=== PATIENT | male | born 1960 | race Caucasian/White ===

== ENCOUNTER 2016-12-20 11:17 | Inpatient (IN) | payer BC, OTHER ==
[~2016-12-20] VITALS: Ht 175.3 cm; Wt 93.8 kg
[~2016-12-20 11:17] MED LIST: ACET-1311 PO; ADVIN25/60 INH; ALBU1AER9 INH; BUDE0.25 NEB; CLC100X PO; DICL1GEL28 TOP; FOLI1TAB7 PO; FURO-85 PO; GLUCTAB7 PO; HYCT PO; INSDGI SC; INSDGI SQ; INSU100I2 SC; IPRA1AER2 INH; LEVA1NEB20 INH; LEVO150T PO; LISI40TA PO; LPT40 PO; MAGN400T6 PO; METO10TA3 PO; MISCCAP80 PO; NRT/25 PO; NRV/5 PO; NSNN50 NAE; OXYC7.5T78 PO; PRT/20 PO; RIBO1TAB PO; SODI1000 PO; TAMS0.4C38 PO; TNR25 PO; TRAM-453 PO; ZNTT/150 PO; [UNRECOGNIZED DRUG - CODE] PO
[2016-12-20] MEDS ORDERED: SODIUM CHLORIDE 0.9% 1000ML 1,000 ML IV ONE (13:18)
[2016-12-20] MEDS ORDERED: SODIUM CHLORIDE 0.9% 1000ML 1,000 ML IV STA (13:18)
[2016-12-20] MEDS ORDERED: ACETAMINOPHEN 325 MG TAB PO STA (13:18)
[2016-12-20] MEDS ORDERED: PIPERACILLIN/TAZOBACTAM 4.5 GM/100ML D5W IV STA (13:22)
[2016-12-20 13:31] LABS: BASO % 0.1 %; BASO ABS # 0.01 K/uL (0-0.2); COMPLETE YES; EOS % 0.6 %; HEMATOCRIT 31.5 % (42-52); IG% 0.1 %; LYMPH % 8.3 %; LYMPH ABS # 0.57 K/uL (1.2-3.4); MEAN CELL VOLUME 84.9 fL (80-100); MEAN CORPUSCULAR HEMOGLOBIN 29.6 pg (25-34); MEAN CORPUSCULAR HGB CONC 34.9 g/dl (32-36); MONO % 9.7 %; NEUT % 81.2 %; PLATELET COUNT 245 K/uL (130-400); RED BLOOD COUNT 3.71 M/uL (4.7-6.1)
[2016-12-20 13:40] LABS: BLOOD UREA NITROGEN 24 mg/dl (7-18); CALCIUM 9.4 mg/dl (8.5-10.1); CARBON DIOXIDE 28 mmol/L (21-32); CHLORIDE 91 mmol/L (98-107); GLUCOSE 214 mg/dl (70-99); POTASSIUM 4.4 mmol/L (3.5-5.1); SODIUM 129 mmol/L (136-145)
--- NOTE | 2016-12-20 13:40 | DIAGNOSTIC IMAGING REPORT ---
CHEST ONE VIEW PORTABLE CLINICAL HISTORY: CHEST PAIN dyspnea COMPARISON STUDY: 04/12/2016 FINDINGS: Small parenchymal infiltrate medial aspect left lower lobe. Potential atelectatic change medial right lower lobe. Lungs otherwise appear clear. IMPRESSION: Small parenchymal infiltrate medial left base and potentially medial right base Electronically signed by: Haroon Zuñiga M.D. 12/20/2016 1:39 PM Dictated Date/Time: 12/20/2016 1:38 PM
[2016-12-20 13:43] LABS: BUN/CREATININE RATIO 14.9 (10-20)
[2016-12-20 13:48] LABS: ALKALINE PHOSPHATASE 103 U/L (45-117); ALT/SGPT 21 U/L (12-78); AST/SGOT 20 U/L (15-37)
[2016-12-20] MEDS ORDERED: OXYC-57 PO (13:55)
[2016-12-20] MEDS ORDERED: VNTHFA/IN INH (14:12)
[2016-12-20] MEDS ORDERED: DICL1GEL12 TOP (14:12)
[2016-12-20] MEDS ORDERED: [UNRECOGNIZED DRUG - CODE] PO (14:12)
[2016-12-20] MEDS ORDERED: INSDGIPEN SC (14:12)
[2016-12-20] MEDS ORDERED: CLC100X PO (14:12)
[2016-12-20] MEDS ORDERED: LEVA45AE INH (14:15)
[2016-12-20] MEDS ORDERED: XPNINS INH (14:15)
[2016-12-20] MEDS ORDERED: TRIA1SPR10 (14:15)
[2016-12-20] MEDS ORDERED: SODIUM CHLORIDE PO (14:18)
[2016-12-20] MEDS ORDERED: MOME6000 (14:20)
[2016-12-20] MEDS ORDERED: ZOLPIDEM TARTRATE 5 MG TAB PO PRN (17:00)
[2016-12-20] MEDS ORDERED: ALUMINUM/MAGNESIUM/SIMETH (MAALOX MAX) 30 ML UDC PO PRN (17:00)
[2016-12-20] MEDS ORDERED: MAGNESIUM HYDROXIDE SUSP 30 ML UDC PO PRN (17:00)
[2016-12-20] MEDS ORDERED: ONDANSETRON INJ 2 MG/ML 2 ML VIAL IV PRN (17:00)
[2016-12-20] MEDS ORDERED: TRAMADOL HCL 50 MG TAB PO PRN (17:00)
[2016-12-20] MEDS ORDERED: ACETAMINOPHEN 325 MG TAB PO PRN (17:00)
[2016-12-20] MEDS ORDERED: OXYCODONE/ACETAMINOPHEN 5-325 TAB PO PRN (17:00)
[2016-12-20] MEDS ORDERED: POLYETHYLENE (MIRALAX) 17 GM PACK PO PRN (17:00)
--- NOTE | 2016-12-20 17:17 | History and Physical ---
History & Physical Date of Service Dec 20, 2016. History & Physical pneumonia/mild sepsis, [id number]
--- NOTE | 2016-12-20 18:35 | HISTORY & PHYSICAL EXAMINATION ---
DATE OF ADMISSION: 12/20/2016 This is a level 3 inpatient admission, 35 minutes. CHIEF COMPLAINT: Fever, cough and sputum. HISTORY OF PRESENT ILLNESS: The patient is a 56-year-old white male with a significant past medical history of subarachnoid bleeding 2 years ago, poorly controlled diabetic, COPD, SIADH, hypertension, carotid artery stenosis, complete blindness and dyslipidemia coming to the hospital Emergency Department because of the above chief complaint. The patient reported having persistent shortness of breath for about a week, associated with intermittent cough and generalized weakness. He has cough with sputum, which was yellow sputum. He was trying nebulizer treatment of albuterol at home, was not of help. He was treated by giving Levaquin and amoxicillin by PCP without relief. In the Emergency Room, he was found to have 37.6 temperature. He reports this morning it was up to 102. In the Emergency Room, an x-ray was done which shows a small infiltration in the left lower lung and potentially right lung base as well. When I interviewed him, the patient is totally blind, but awake, alert and orientated, conversational confirmed the above information; cough, sputum, fever, however there was no wheezing. No chest pain, palpitations or lower extremity swellings. Denied nausea, vomiting, abdominal pain, diarrhea or constipation, but most of the time there was constipation; last bowel movement was yesterday. He denied dysuria, urgency and frequencies. Denied facial droop, slurry speeches or local weakness. Denied skin rashes. PAST MEDICAL HISTORY: Like I mentioned above. PAST SURGICAL HISTORY: Includes appendectomy. FAMILY HISTORY: Includes diabetic heart disease, lung disease and hypertension. SOCIAL HISTORY: History of tobacco abuse disorder. Denied alcohol abuse disorder, denied illicit drug abuse. The patient is , is at the bedside. REVIEW OF SYSTEMS: Please see HPI, otherwise 14 points organ system review were negative. MEDICATIONS: Currently taking at home which includes; amlodipine 10 mg p.o. q.a.m., atenolol 25 mg p.o. b.i.d., atorvastatin 40 mg p.o. at bedtime, Voltaren 1% topical gel one application p.r.n., Colace 200 mg p.o. b.i.d., Advair 250/50 one puff b.i.d., folic acid 2 mg p.o. b.i.d., Lasix 20 mg p.o. q.a.m., glucosamine chondroitin 1 tab p.o. b.i.d., insulin Glargine 35 units at bedtime, 28 units q.a.m., levothyroxine 150 mg p.o. daily, lisinopril 40 mg p.o. q.a.m., mag oxide 400 mg p.o. daily, metoclopramide 10 mg p.o. before meals and bedtime., nortriptyline 50 mg p.o. q.a.m., Protonix 20 mg p.o. b.i.d., probiotic 1 tab p.o. q.a.m., Zantac 150 mg p.o. q.i.d., vitamin B2 100 mg p.o. q.i.d., sodium chloride 1 tab p.o. b.i.d., Flomax 0.4 mg p.o. at bedtime, tramadol 50-100 mg p.o. q. 4 hours p.r.n. for the pain, simethicone 250 mg p.o. use as directed, Percocet 5/325 one to two tab p.o. q. 4 hours p.r.n. for the pain, mometasone furoate two spray daily as needed for sinus congestion, Xopenex 0.31 mg inhale q.i.d. p.r.n. for shortness of breath or wheezing, Combivent Respimat one to two puffs q. 4-6 hours p.r.n. for shortness of breath, Pulmicort 0.25 mg via nebulizer treatment as needed, albuterol ProAir one to two puffs q. 4 hours p.r.n. for shortness of breath and Tylenol as needed for the pain. ALLERGIES: TO LORAZEPAM. PHYSICAL EXAMINATION: VITAL SIGNS: Temperature 37.6, pulse 102, respiratory rate 18, blood pressure 134/59, pulse ox was 92% on room air. GENERAL: The patient is a white male, awake, alert and orientated, conversational, follows all commands, bilateral eyes were totally blind secondary to diabetes. HEAD: Normocephalic. EYES: Pupils are equal, round and responds to light. EARS: Normal. NOSE: Normal. NECK: Supple. Thyroid; no enlargement. Trachea midline. HEART: Regular rhythm. S1, S2. LUNGS: Decreased breathing sounds. There were no wheezing, rhonchi or crackles. ABDOMEN: Obese, nontender. Bowel sound was positive. Bilateral CVA was nontender. GENITOURINARY AND RECTAL: Deferred. EXTREMITIES: Bilateral lower extremities, no swelling. Homans sign was negative. Calf was nontender. NEUROLOGIC EVALUATION: There was no facial droop. Bilateral lower extremities have resting tremor which is not new. SKIN: Has no rashes. LABORATORY STUDIES: WBC 6.9, hemoglobin 11, platelets 245. Sodium 129, potassium 4.4, BUN 24, creatinine 1.6. Random blood glucose 214. Lactic acid 2.02. Lipase 42. Liver function test was within normal limits. Baseline BUN and creatinine was 20/1.2. IMAGING STUDIES: Chest x-ray, like I mentioned above; there were small patchy infiltrations in the medial left base and potentially medial right base. ASSESSMENT AND PLAN: A 56-year-old white male, with the problems below: 1. Pneumonia with fever, cough and sputum. 2. Possible community-acquired pneumonia, failed outpatient oral antibiotic treatment. 3. History of chronic obstructive pulmonary disease. 4. History of tobacco abuse disorder. 5. Diabetes, uncontrolled. 6. History of gastroparesis. 7. Dyslipidemia. 8. Hypertension. 9. 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 10. History of chronic kidney disease. 11. Possible acute on chronic kidney disease stage 3. 12. History of subarachnoid bleeding. 13. Possible mild sepsis. PLAN: Like I mentioned above, possible community-acquired pneumonia, failed outpatient oral antibiotic treatment. Will be full admission, nebulizer treatment, IV antibiotic with Rocephin and azithromycin. I will add steroid because he has history of COPD, tobacco abuse disorder and there is new evidence of steroid improved sooner recovery of pneumonia and shorter the hospital stay. We will check lactase levels, follow sputum culture and blood culture. We will check influenza A and B because patient reports he has fever up to 102 at home. For other conditions we will continue current medications. For hypertension, dyslipidemia and diabetes we will give diabetic diet, check HbA1c and adding as per sliding scale. Gastrointestinal prophylaxis covered. DVT prophylaxis is covered. I discussed with patient and about the care plan. I answered all the questions. LEXID
[2016-12-20 18:36] VITALS: BMI 30.9
[2016-12-20] MEDS ORDERED: CEFTRIAXONE SOD INJ 1 GM in DEXTROSE 5% ADD-VANTAGE 50ML 50 ML IV STA (18:54)
[2016-12-20] MEDS ORDERED: GLUCOSE 10 TABS/TUBE PO PRN (19:00)
[2016-12-20] MEDS ORDERED: GLUCAGON FOR INJ 1 MG VIAL SQ PRN (19:00)
[2016-12-20] MEDS ORDERED: GLUCOSE 40% GEL 15 GM TUBE PO PRN (19:00)
[2016-12-20] MEDS ORDERED: DEXTROSE 50% 50 ML SYR IV PRN (19:00)
[2016-12-20 19:03] VITALS: BP 177/69; PULSE 82; TEMP 36.8; O2SAT 92
[2016-12-20 19:15] LABS: PARTIAL THROMBOPLASTIN RATIO 1.1; PROTHROMBIN TIME (PATIENT) 10.4 SECONDS (9.0-12.0)
[2016-12-20] MEDS ORDERED: HYDROCODONE/HOMATROPINE SYRUP 5MG/1.5MG 5ML UDP PO PRN (19:15)
[2016-12-20] MEDS ORDERED: AZITHROMYCIN IV 500 MG in DEXTROSE 5% 250ML 250 ML IV ONE (20:00)
[2016-12-20 20:20] VITALS: PULSE 96; O2SAT 95
[2016-12-20] MEDS: ALBUT/IPRATROP 3MG/0.5MG NEB 3 ML VIAL INH SCH (20:20)
[2016-12-20] MEDS: SODIUM CHLORIDE 0.9% 1000ML 1,000 ML IV SCH (20:23)
[2016-12-20] MEDS: FLUTICASONE/SALMETEROL 250/50 (ADVAIR) 14 PUFF/1 INHALER INH SCH (20:31)
[2016-12-20] MEDS: METOCLOPRAMIDE HCL 10 MG TAB PO SCH (20:33)
[2016-12-20] MEDS: TAMSULOSIN HCL 0.4 MG CAP PO SCH (20:34)
[2016-12-20] MEDS: RANITIDINE HCL 150 MG TAB PO SCH (20:34)
[2016-12-20] MEDS: DOCUSATE SODIUM 100 MG CAP PO SCH (20:35)
[2016-12-20] MEDS: NORTRIPTYLINE HCL 25 MG CAP PO SCH (20:35)
[2016-12-20] MEDS: ATORVASTATIN 40 MG TAB PO SCH (20:36)
[2016-12-20] MEDS: HEPARIN SOD 5000 UNIT/0.5 ML CARP SQ SCH (20:51)
[2016-12-20] MEDS: INSULIN GLARGINE SOLOSTAR 100 UNITS/ML 3 ML PEN SC SCH (20:51)
[2016-12-20] MEDS: INSULIN ASPART 100 UNITS/ML 3 ML PEN SC SCH (21:08)
[2016-12-21] VITALS (12 sets, daily range): BP systolic 130–180; BP diastolic 63–78; PULSE 73–109; TEMP 36.6–36.9; O2SAT 93–98; Ht 175.3 cm; Wt 93.8 kg
[2016-12-21] MEDS ORDERED: HydrALAZINE HCL 20 MG/ML VIAL IV. PRN (01:00)
[2016-12-21] MEDS: INSULIN ASPART 100 UNITS/ML 3 ML PEN SC SCH ×5 (01:24→20:49)
[2016-12-21] MEDS: SODIUM CHLORIDE 0.9% 1000ML 1,000 ML IV SCH ×2 (05:40→17:06)
[2016-12-21] MEDS: METOCLOPRAMIDE HCL 10 MG TAB PO SCH ×4 (05:41→20:37)
[2016-12-21] MEDS: LEVOTHYROXINE 150 MCG TAB PO SCH (05:41)
[2016-12-21] MEDS: ALBUT/IPRATROP 3MG/0.5MG NEB 3 ML VIAL INH SCH ×4 (07:14→20:06)
[2016-12-21 08:11] LABS: ESTIMATED AVERAGE GLUCOSE 194 mg/dl; HA1C FLAG Normal (Normal)
[2016-12-21] MEDS: RANITIDINE HCL 150 MG TAB PO SCH ×2 (08:28→20:36)
[2016-12-21] MEDS: DOCUSATE SODIUM 100 MG CAP PO SCH ×2 (08:29→20:37)
[2016-12-21] MEDS: MAGNESIUM OXIDE 400 MG TAB PO SCH (08:29)
[2016-12-21] MEDS: FUROSEMIDE 40 MG TAB PO SCH (08:29)
[2016-12-21] MEDS: LISINOPRIL 40 MG TAB PO SCH (08:29)
[2016-12-21] MEDS: AMLODIPINE BESYLATE 5 MG TAB PO SCH (08:30)
[2016-12-21] MEDS: FLUTICASONE/SALMETEROL 250/50 (ADVAIR) 14 PUFF/1 INHALER INH SCH ×2 (08:30→23:08)
[2016-12-21] MEDS: HEPARIN SOD 5000 UNIT/0.5 ML CARP SQ SCH ×2 (08:43→20:45)
[2016-12-21 08:53] LABS: BUN/CREATININE RATIO 12.2 (10-20); CALCIUM 8.9 mg/dl (8.5-10.1); CREATININE 1.2 mg/dl (0.60-1.40)
[2016-12-21] MEDS ORDERED: INSULIN GLARGINE SOLOSTAR 100 UNITS/ML 3 ML PEN SQ SCH ×2 (09:00)
[2016-12-21 10:29] LABS: INFLUENZA A PCR Neg for Influ A (NEG); INFLUENZA B PCR Neg for Influ B (NEG)
[2016-12-21] MEDS ORDERED: AZITHROMYCIN IV 500 MG in DEXTROSE 5% 250ML 250 ML IV SCH (14:00)
[2016-12-21] MEDS ORDERED: CEFTRIAXONE SOD INJ 1 GM in DEXTROSE 5% ADD-VANTAGE 50ML 50 ML IV SCH (18:00)
--- NOTE | 2016-12-21 20:13 | Progress Note ---
Subjective Date of Service: Dec 21, 2016. Subjective Pt evaluation today including: conversation w/ patient, physical exam, chart review, lab review, review of studies (cxr), review of inpatient medication list Pain: denies PO Intake: improved today Voiding: no voiding problems no issues overnight feels much better; in fact he says "I feel great" is legally blind for many years ambulating fine denies other complaints Problem List Medical Problems: (1) Dehydration Status: Acute (2) Hyperkalemia Status: Acute (3) TIA (transient ischemic attack) Status: Acute (4) Weakness Status: Acute Review of Systems Constitutional: No chills, No fever Respiratory: + cough, No dyspnea on exertion, No shortness of breath Cardiac: No chest pain Abdomen: No pain Objective Vital Signs Date Time Temp Pulse Resp B/P Pulse Ox O2 Delivery O2 Flow Rate FiO2 12/21/16 19:47 36.8 73 18 152/74 95 Room Air 12/21/16 16:00 Room Air 12/21/16 15:49 92 16 96 Room Air 12/21/16 15:04 36.6 82 18 147/68 96 Room Air 12/21/16 12:15 Room Air 12/21/16 11:26 36.9 86 18 130/63 95 12/21/16 11:22 97 17 93 Room Air 12/21/16 07:58 Room Air 12/21/16 07:37 36.7 80 18 145/73 98 12/21/16 07:15 91 18 96 Room Air 12/21/16 05:32 36.7 89 18 147/69 94 Room Air 12/21/16 04:05 Room Air 12/21/16 01:43 109 171/78 12/21/16 00:13 36.7 100 18 180/73 94 Room Air 12/21/16 00:05 Room Air 12/20/16 20:20 96 18 95 Room Air Physical Exam General Appearance: no apparent distress Eyes: + pertinent finding (pupils opague ) ENT: pharynx normal (no thrush) Neck: no JVD Respiratory/Chest: no respiratory distress, no accessory muscle use, + rales ( both bases) Cardiovascular: regular rate, rhythm, no gallop, no murmur Abdomen: normal bowel sounds, non tender, soft, no organomegaly Extremities: no pedal edema Neurologic/Psychiatric: alert, oriented x 3 Laboratory Results Last 24 Hours Test 12/20/16 20:21 12/21/16 00:28 12/21/16 00:50 12/21/16 07:31 Bedside Glucose 370 mg/dl 300 mg/dl 313 mg/dl Sodium Level 131 mmol/L Potassium Level 4.0 mmol/L Chloride Level 97 mmol/L Carbon Dioxide Level 23 mmol/L Anion Gap 11.0 mmol/L Blood Urea Nitrogen 15 mg/dl Creatinine 1.20 mg/dl Est Creatinine Clear Calc Drug Dose 76.5 ml/min Estimated GFR () 77.3 Estimated GFR (Non- 66.7 BUN/Creatinine Ratio 12.2 Random Glucose 172 mg/dl Estimated Average Glucose 194 mg/dl Hemoglobin A1c 8.4 % Calcium Level 8.9 mg/dl Test 12/21/16 07:40 12/21/16 07:48 12/21/16 11:39 12/21/16 16:29 Influenza Type A (RT-PCR) Neg for Influ A Influenza Type B (RT-PCR) Neg for Influ B Bedside Glucose 180 mg/dl 300 mg/dl 285 mg/dl Assessment and Plan 56yo male with: 1. LLL community-acquired pneumonia - improved. day #2 of rocephin/zithromax. cont both, change to po abx tomorrow. 2. asthma - not in exacerbation. Cont inhalers. 3. hyponatremia - 2nd to dehydration - improving. Also there is component of pseudohyponatremia from elevated glucose. repeat BMP am. 4. acute kidney injury 2nd to #1 and #3 - resolving. Cont hydration. 5. T1DM, uncontrolled - I increased lantus this AM and patient refused the increase. I did adjust his carb ratio & correction factor. He takes about 80-90 units total each day at home by history. 6. gastroparesis - cont reglan. 7. HTN - controlled; cont home meds 8. DVT proph - heparin SC. 9. blindness - chronic. left message for on answering machine 12/21/16 anticipate d/c tomorrow Continued [facility] stay due to: multiple IV medications needed Discharge planning: home
[2016-12-21] MEDS: NORTRIPTYLINE HCL 25 MG CAP PO SCH (20:37)
[2016-12-21] MEDS: TAMSULOSIN HCL 0.4 MG CAP PO SCH (20:38)
[2016-12-21] MEDS: ATORVASTATIN 40 MG TAB PO SCH (20:38)
[2016-12-21] MEDS: INSULIN GLARGINE SOLOSTAR 100 UNITS/ML 3 ML PEN SC SCH (20:46)
--- NOTE | 2016-12-21 23:21 | EMERGENCY ROOM VISIT NOTE ---
History Report prepared by Mary Ann: Miguel A Taylor Under the Supervision of: Dr. Sudhakar Hurtado M.D. First contact with patient: 13:11 Chief Complaint: RESPIRATORY PROBLEMS Stated Complaint: POSSIBLE PNEUMONIA Nursing Triage Summary: SOB, cough History of Present Illness The patient is a 56 year old male who presents to the Emergency Room with complaints of persistent shortness of breath starting about a week ago. He also complains of an intermittent cough and weakness. He has been taking Albuterol without relief. He was also prescribed Levaquin and Amoxicillin by his PCP without relief. As per , he has been twitching which is not normal for him. He has a history of stroke. He has a history of diabetes and reports that his blood sugar level has been running high. The patient denies any urinary symptoms. The patient is visually blind. No nausea vomiting or diarrhea. No focal numbness or weakness. Source of History: patient, family, spouse/significant other Onset: about a week ago Position: other (global) Quality: other (shortness of breath) Timing: other (persistent) Modifying Factors (Relieving): other (Albuterol, Levaquin, and Amoxicillin without relief) Associated Symptoms: + cough, + weakness Review of Systems See HPI for pertinent positives & negatives. A total of 10 systems reviewed and were otherwise negative. Past Medical & Surgical Medical Problems: (1) Acute bronchitis (2) Acute bronchitis (3) Acute bronchitis (4) Asthma (5) Asthma, Unspecified (6) Bronchitis (7) Chest pain (8) Chest pain (9) COPD (chronic obstructive pulmonary disease) (10) COPD exacerbation (11) Diab Laverne Wo Compl, Type Ii Or Unspec Type, Not Uncntrld (12) Gastroparesis (13) Headache (14) Hyperlipidemia Nec/Nos (15) Hypertension Nos (16) Hyponatremia (17) Hyponatremia (18) Hypothyroidism Nos (19) Insulin dependent diabetes mellitus (20) Pneumonia (21) pneumonia/mild sepsis (22) pneumonia/mild sepsis (23) Stroke-like symptom (24) Subarachnoid bleed (25) Upper respiratory infection (26) URI (upper respiratory infection) Surgical Problems: (1) History of appendectomy Old medical records were reviewed. Nurse's notes were reviewed and I agree with. Family History Cancer Diabetes mellitus FH: heart disease FHx: lung disease Hypertension Social History Smoking Status: Former Smoker Alcohol Use: none Drug Use: none Marital Status: Housing Status: lives with family Occupation Status: disabled Current/Historical Medications Scheduled Amlodipine Besylate (Amlodipine Besylate), 10 MG PO QAM Atenolol (Atenolol), 25 MG PO BID Atorvastatin (Atorvastatin Calcium), 40 MG PO HS Diclofenac Sodium (Topical) (Voltaren 1% Top Gel), 1 APPLN TOP UD Docusate Sodium (Docusate Sodium), 200 MG PO BID Fluticasone Prop/Salmeterol (Advair Diskus 250/50 60 Dose), 1 PUFF INH BID Folic Acid (Folvite), 2 MG PO BID Furosemide (Lasix), 40 MG PO QAM Vmqxldpbaof-Knnstfmeeip-Oua C- (Glucosamine Chondroitin), 1 TAB PO BID Insulin Glargine (Lantus), 28 UNITS SQ QAM Insulin Glargine (Lantus Solostar), 35 UNITS SC QPM Insulin Lispro (Human) (Humalog Kwikpen), UNITS SC BREAKFAST Insulin Lispro (Human) (Humalog Kwikpen), UNITS SC Q DINNER Insulin Lispro (Human) (Humalog Kwikpen), UNITS SC HS Levothyroxine Sodium (Synthroid), 150 MCG PO QAM Lisinopril (Zestril), 40 MG PO QAM Magnesium Oxide (Mag-Ox), 400 MG PO DAILY Metoclopramide HCl (Metoclopramide HCl), 10 MG PO ACHS Nortriptyline Hcl (Pamelor), 50 MG PO QPM Pantoprazole (Protonix), 20 MG PO BID Probiotic Product (Probiotic), 1 TAB PO QAM Ranitidine (Zantac), 150 MG PO TID Riboflavin (B-2), 100 MG PO QID Tamsulosin Hcl (Flomax), 0.4 MG PO HS [Sodium Chloride], 1 TAB PO BID Scheduled PRN Acetaminophen (Tylenol), 650 MG PO Q6 PRN for Pain Albuterol Hfa (Ventolin Hfa), 1-2 PUFFS INH Q4 PRN for SOB/Wheezing Hydrocodone W/ Homatropine (Hydrocodone Bitartrate/Ho), 1 TAB PO QID PRN for Pain Insulin Lispro (Human) (Humalog Kwikpen), UNITS SC LUNCH& SNACKS PRN for MEALS Ipratropium-Albuterol (Combivent Respimat), 1-2 PUFFS INH Q4-6HRS PRN for SOB/ Wheezing Levalbuterol (Levalbuterol HCl), 1 PUFF INH QID PRN for SOB/Wheezing Levalbuterol Tartrate (Levalbuterol Tartrate Hfa), 1-2 PUFFS INH Q4 PRN for SOB/ Wheezing Mometasone Furoate (Nasal) (Mometasone Furoate), 2 SPRAYS NA DAILY PRN for SINUS CONGESTION Oxycodone/Acetaminophen 5MG/325MG (Percocet 5MG/325MG), 1-2 TABLETS PO Q4H PRN for Pain Simethicone (Gas-X Extra Strength), 250 MG PO UD PRN for Gas or Constipation Tramadol Hcl (Ultram), 50-100 MG PO Q4H PRN for Pain Allergies Coded Allergies: Lorazepam (Verified Adverse Reaction, Unknown, Hallucinations, 06/29/16) Reported by PT. Physical Exam Vital Signs Date Time Temp Pulse Resp B/P Pulse Ox O2 Delivery O2 Flow Rate FiO2 12/20/16 15:30 93 Room Air 12/20/16 14:40 37.3 93 20 163/73 94 Room Air 12/20/16 14:00 96 19 161/73 93 Room Air 12/20/16 13:15 96 21 154/73 93 Room Air 12/20/16 13:14 95 12/20/16 11:34 92 Room Air 12/20/16 11:30 37.6 102 19 134/59 92 Room Air Physical Exam General: Non-ill appearing, middle aged male, who has an occasional cough, appears mildly hypoxemic. HEENT: Normal cephalic atraumatic. Baseline bind. Pupils are equal round and reactive to light. Extraocular movements are intact. Oropharynx is pink with moist mucous membranes. No swelling of the mouth lips or tongue. Neck: Supple with a midline trachea. No meningeal signs or stiffness, no JVD or bruits. No Stridor. Chest: Crackles in the base. No wheezes or rhonchi. No increased work of breathing. Heart: regular rate and rhythm. Abdomen: Soft nontender, nondistended without rebound guarding or rigidity. Extremities: No cyanosis clubbing or edema. No calf tenderness or assymetry Spine/Back. Non tender to palpation. No CVA tenderness Skin: Good turgor without rashes. Neurologic exam: Cranial nerves two through 12 are intact. Motor and sensation are intact and symmetrical throughout. Medical Decision & Procedures ER Provider Diagnostic Interpretation: X-ray results as stated below per interpretation by me and the radiologist: CHEST ONE VIEW PORTABLE CLINICAL HISTORY: CHEST PAIN dyspnea COMPARISON STUDY: 04/12/2016 FINDINGS: Small parenchymal infiltrate medial aspect left lower lobe. Potential atelectatic change medial right lower lobe. Lungs otherwise appear clear. IMPRESSION: Small parenchymal infiltrate medial left base and potentially medial right base Electronically signed by: Haroon Zuñiga M.D. 12/20/2016 1:39 PM Dictated Date/Time: 12/20/2016 1:38 PM Laboratory Results 12/20/16 13:10 Red Blood Count 3.71, Mean Corpuscular Volume 84.9, Mean Corpuscular Hemoglobin 29.6, Mean Corpuscular Hemoglobin Concent 34.9, Mean Platelet Volume 10.0, Neutrophils (%) (Auto) 81.2, Lymphocytes (%) (Auto) 8.3, Monocytes (%) (Auto) 9.7, Eosinophils (%) (Auto) 0.6, Basophils (%) (Auto) 0.1, Neutrophils # (Auto) 5.60, Lymphocytes # (Auto) 0.57, Monocytes # (Auto) 0.67, Eosinophils # (Auto) 0.04, Basophils # (Auto) 0.01 Test 12/20/16 13:10 12/20/16 13:42 12/20/16 13:59 White Blood Count 6.90 K/uL (4.8-10.8) Red Blood Count 3.71 M/uL (4.7-6.1) Hemoglobin 11.0 g/dL (14.0-18.0) Hematocrit 31.5 % (42-52) Mean Corpuscular Volume 84.9 fL (80-100) Mean Corpuscular Hemoglobin 29.6 pg (25-34) Mean Corpuscular Hemoglobin Concent 34.9 g/dl (32-36) Platelet Count 245 K/uL (130-400) Mean Platelet Volume 10.0 fL (7.4-10.4) Neutrophils (%) (Auto) 81.2 % Lymphocytes (%) (Auto) 8.3 % Monocytes (%) (Auto) 9.7 % Eosinophils (%) (Auto) 0.6 % Basophils (%) (Auto) 0.1 % Neutrophils # (Auto) 5.60 K/uL (1.4-6.5) Lymphocytes # (Auto) 0.57 K/uL (1.2-3.4) Monocytes # (Auto) 0.67 K/uL (0.11-0.59) Eosinophils # (Auto) 0.04 K/uL (0-0.5) Basophils # (Auto) 0.01 K/uL (0-0.2) RDW Standard Deviation 43.9 fL (36.4-46.3) RDW Coefficient of Variation 14.1 % (11.5-14.5) Immature Granulocyte % (Auto) 0.1 % Immature Granulocyte # (Auto) 0.01 K/uL (0.00-0.02) Erythrocyte Sedimentation Rate 37 mm/hr (0-14) Prothrombin Time 10.4 SECONDS (9.0-12.0) Prothromb Time International Ratio 1.0 (0.9-1.1) Activated Partial Thromboplast Time 28.7 SECONDS (21.0-31.0) Partial Thromboplastin Ratio 1.1 Total Bilirubin 0.4 mg/dl (0.2-1) Direct Bilirubin < 0.1 mg/dl (0-0.2) Aspartate Amino Transf (AST/SGOT) 20 U/L (15-37) Alanine Aminotransferase (ALT/SGPT) 21 U/L (12-78) Alkaline Phosphatase 103 U/L (45-117) C-Reactive Protein 7.34 mg/dl (0-0.29) Total Protein 8.0 gm/dl (6.4-8.2) Albumin 4.1 gm/dl (3.4-5.0) Lipase 62 U/L (73-393) Hepatitis C Antibody Screen NEG (NEG) Bedside Lactic Acid Venous 2.02 mmol/L (0.90-1.70) Bedside Troponin I 0.000 ng/ml (0-0.045) Laboratory studies as stated above per my review. Medications Administered Medications (Trade) Dose Ordered Sig/Shantel Route Start Time Stop Time Status Last Admin Dose Admin Sodium Chloride 1,000 ml @ 999 mls/hr Q1H1M STAT IV 12/20/16 13:18 12/20/16 14:18 DC 12/20/16 14:02 999 MLS/HR Sodium Chloride (Nss 1000ml) 1,000 ml @ 150 mls/hr Q6H40M ONCE IV 12/20/16 13:18 12/20/16 18:54 DC 12/20/16 14:03 150 MLS/HR Acetaminophen (Tylenol Tab) 650 mg NOW STAT PO 12/20/16 13:18 12/20/16 13:21 DC 12/20/16 14:02 650 MG Piperacillin Sod/ Tazobactam Sod 4.5 gm 4.5 gm NOW STAT IV 12/20/16 13:22 12/20/16 13:23 DC 12/20/16 14:02 4.5 GM Sodium Chloride (Nss 1000ml) 1,000 ml @ 80 mls/hr [id number] IV 12/20/16 16:55 01/19/17 16:54 12/21/16 17:06 80 MLS/HR Acetaminophen (Tylenol Tab) 650 mg Q4H PRN PO 12/20/16 17:00 01/19/17 16:59 12/21/16 21:01 650 MG Magnesium Hydroxide (Milk Of Magnesia Susp) 30 ml Q12H PRN PO 12/20/16 17:00 01/19/17 16:59 12/21/16 23:08 30 ML Oxycodone/ Acetaminophen (Percocet 5-325mg Tab) 1 tab Q4H PRN PO 12/20/16 17:00 01/03/17 16:59 12/20/16 17:33 1 TAB ECG Indication: SOB/dyspnea Rate (beats per minute): 94 Rhythm: normal sinus Findings: no acute ischemic change, no ectopy Comparison ECG Date: July 28, 2016 Change: no significant change ED Course 1311: Past medical records reviewed. The patient was evaluated in room C05, and a complete history and physical examination were performed. 1318: Tylenol Tab 650 mg PO, Sodium Chloride 1000 ml @ 150 mls/hr IV, Sodium Chloride 1000 ml @ 999 mls/hr IV 1322: Zosyn IV 4.5 gm IV 1559: Upon reevaluation, the patient is resting comfortably. I discussed the results and treatment plan with the patient. He verbalized agreement of the treatment plan. I spoke with Dr. Melendez, from [facility] Hospitalist [facility]. The patient will be evaluated for further management. Medical Decision Differential diagnosis includes but is not limited to pneumonia, bronchitis, influenza, CHF, acute coronary syndrome, electrolyte or metabolic abnormalities. This patient comes in as described above. He has a cough and fever and on my exam does appear to be mildly ill. He has a hacking cough. He has crackles in the bases an I am concerned for pneumonia. His O2 sat is a low 90s without oxygen. He was placed on supplemental oxygen. Multiple blood testing was obtained. Blood cultures were obtained. He was given IV antibiotics as outlined above. Chest x-ray confirms pneumonia. White count is not elevated. His lactic acid is mildly elevated. He was hydrated in the ER. I do think he needs to be admitted for further treatment and evaluation of his infection/ sepsis as he does have multiple comorbidities as well. I have consulted the [facility] hospitalist. They saw him in the ER and will admit him for these measures. Consults Time Called: 1216 Consulting Physician: Dr. Melendez, from [facility] Returned Call: [phone] Melendez, from [facility]. Impression Primary Impression: Pneumonia Additional Impression: Sepsis Scribe Attestation The scribe's documentation has been prepared under my direction and personally reviewed by me in its entirety. I confirm that the note above accurately reflects all work, treatment, procedures, and medical decision making performed by me. Departure Information Dispostion Being Evaluated By Hospitalist Referrals No Doctor, Assigned (PCP) Patient Instructions My [facility] Health Problem Qualifiers
[2016-12-22] MEDS: SODIUM CHLORIDE 0.9% 1000ML 1,000 ML IV SCH (02:32)
[2016-12-22 04:00] VITALS: BP 125/71; PULSE 79; TEMP 36.6; O2SAT 94
[2016-12-22] MEDS: LEVOTHYROXINE 150 MCG TAB PO SCH (06:50)
[2016-12-22] MEDS: METOCLOPRAMIDE HCL 10 MG TAB PO SCH ×2 (06:51→11:34)
[2016-12-22 07:11] VITALS: PULSE 88; O2SAT 95
[2016-12-22] MEDS: ALBUT/IPRATROP 3MG/0.5MG NEB 3 ML VIAL INH SCH ×2 (07:11→11:36)
[2016-12-22 07:31] VITALS: BP 146/73; PULSE 86; TEMP 36.7; O2SAT 95
[2016-12-22 07:42] LABS: BUN/CREATININE RATIO 13.6 (10-20); CALCIUM 8.6 mg/dl (8.5-10.1); CREATININE 1.1 mg/dl (0.60-1.40); POTASSIUM 4.1 mmol/L (3.5-5.1)
[2016-12-22] MEDS: RANITIDINE HCL 150 MG TAB PO SCH (08:42)
[2016-12-22] MEDS: FUROSEMIDE 40 MG TAB PO SCH (08:42)
[2016-12-22] MEDS: MAGNESIUM OXIDE 400 MG TAB PO SCH (08:42)
[2016-12-22] MEDS: DOCUSATE SODIUM 100 MG CAP PO SCH (08:42)
[2016-12-22] MEDS: FLUTICASONE/SALMETEROL 250/50 (ADVAIR) 14 PUFF/1 INHALER INH SCH (08:43)
[2016-12-22] MEDS: LISINOPRIL 40 MG TAB PO SCH (08:43)
[2016-12-22] MEDS: AMLODIPINE BESYLATE 5 MG TAB PO SCH (08:44)
[2016-12-22] MEDS: INSULIN ASPART 100 UNITS/ML 3 ML PEN SC SCH ×2 (08:55→12:22)
[2016-12-22] MEDS: HEPARIN SOD 5000 UNIT/0.5 ML CARP SQ SCH (08:55)
[2016-12-22] MEDS ORDERED: INSULIN GLARGINE SOLOSTAR 100 UNITS/ML 3 ML PEN SQ SCH (09:00)
[2016-12-22] MEDS ORDERED: LEVO1TAB34 PO (10:38)
[2016-12-22] MEDS ORDERED: GUAISYP4 PO (10:38)
--- NOTE | 2016-12-22 10:48 | Discharge Instructions ---
Discharge Instructions Admission Reason for Admission: Pneumonia, Dehydration Discharge Discharge Diagnosis / Problem: Left lower lobe pneumonia - improved. Dehydration - resolved. Discharge Goals Goal(s): Learn about illness, Diagnostic testing, Therapeutic intervention Activity Recommendations Activity Limitations: resume your previous activity (as tolerated) . Instructions / Follow-Up Instructions / Follow-Up From Dr. Jones - 1. For your left-sided pneumonia - * take levaquin (levofloxacin) 500mg once daily for 8 days; begin this TODAY, 12/22/16. * may take robitussin AC 1 teaspoon every 6 hours as needed for cough. Stop your other cough syrup while taking the robitussin AC. 2. For your asthma - * I would recommend that you use your albuterol nebs every 6 hours scheduled for a few days. * After 2-3 days you can use the albuterol as needed. * At this time I would defer on any prednisone. 3. Diabetes - * Resume your normal insulin regimen at home. * Note that your sugars may run high for a few more days as you recover from your pneumonia. Please adjust/correct your insulin as necessary. 4. Please see Josh Squires or Dr. Bajwa mid next week for recheck of your pneumonia. 5. Return to [facility] if you have recurrent fever over 100.5 degrees, worsening cough not relieved by your albuterol or cough syrup, worsening shortness of breath, worsening fingerstick blood sugars, etc. Current Hospital Diet Patient's current hospital diet: Diabetes Type 2 Diet Discharge Diet Recommended Diet: Diabetes Type 1 Diet Procedures Procedures Performed: chest x-ray with left-sided pneumonia Pending Studies Studies pending at discharge: no Laboratory Results Hemoglobin A1c Test 12/21/16 07:31 Range/Units Estimated Average Glucose 194 mg/dl Hemoglobin A1c 8.4 H 4.5-5.6 % Medical Emergencies . Who to Call and When: Medical Emergencies: If at any time you feel your situation is an emergency, please call 911 immediately. . Non-Emergent Contact Non-Emergency issues call your: Primary Care Provider Call Non-Emergent contact if: temperature is above 100.5, your pain is not controlled, your pain is worsening, your pain is concerning you, you have any medication questions . . "Provider Documentation" section prepared by Dmitry Jones. VTE Core Measure Inpt VTE Proph given/why not?: Unfractionated heparin SQ
[2016-12-22 11:37] VITALS: PULSE 88; O2SAT 95
[2016-12-22 11:46] VITALS: BP 146/73; PULSE 88; TEMP 36.7; O2SAT 95
--- NOTE | 2017-01-01 19:01 | Discharge Summary ---
Discharge Summary Date of Service Jan 01, 2017. Discharge Summary Admission Date: Dec 20, 2016 at 17:03 Discharge Date: Dec 22, 2016 Discharge Disposition: Home Principal Diagnosis: community-acquired pneumonia Problems/Secondary Diagnoses: Acute problems: 1. acute kidney injury 2. hyponatremia 2nd to dehydration and hyperglycemia - resolved Chronic medical problems: 1. Type 1 DM, uncontrolled, with retinopathy 2. h/o subarachnoid hemorrhage 3. COPD/asthma 4. h/o SIADH 5. hypertension 6. carotid artery stenosis, 7. legal blindness 8. dyslipidemia 9. gastroparesis Immunizations: Have You Had Influenza Vaccine: Yes Influenza Vaccine Date: Aug 03, 2010 History of Tetanus Vaccine?: Yes History of Pneumococcal: Unknown Pneumococcal Date: Jun 30, 2004 History of Hepatitis B Vaccine: Unknown Procedures: chest x-ray: LLL infiltrate, possible RLL infiltrate Medication Reconciliation New Medications: Guaifenesin/Codeine (Robitussin-Ac Syrup) Syrp 5 ML PO Q6H PRN for Cough, #120 ML 0 Refills Levofloxacin (Levaquin) 500 Mg Tab 1 TAB PO DAILY for 8 Days, #8 TAB 0 Refills start 12/22/16 Continued Medications: Acetaminophen (Tylenol) 325 Mg Tab 650 MG PO Q6 PRN for Pain, TAB Albuterol Hfa (Ventolin Hfa) 200 Puffs/33486 Mcg Aers 1-2 PUFFS INH Q4 PRN for SOB/Wheezing, #1 INHALER Amlodipine Besylate (Amlodipine Besylate) 5 Mg Tab 10 MG PO QAM Atenolol (Atenolol) 25 Mg Tab 25 MG PO BID Atorvastatin (Atorvastatin Calcium) 40 Mg Tab 40 MG PO HS Diclofenac Sodium (Topical) (Voltaren 1% Top Gel) 1 % Gel 1 APPLN TOP UD Docusate Sodium (Docusate Sodium) 100 Mg Cap 200 MG PO BID Fluticasone Prop/Salmeterol (Advair Diskus 250/50 60 Dose) 1 Ea Aerp 1 PUFF INH BID, INHALER Folic Acid (Folvite) 1 Mg Tab 2 MG PO BID, TAB Furosemide (Lasix) 20 Mg Tab 40 MG PO QAM, TAB Aumuzfplsmo-Idnlzxhppva-Geq C- (Glucosamine Chondroitin) 1 Tab Tab 1 TAB PO BID Insulin Glargine (Lantus) 100 Unit/Ml Inj 28 UNITS SQ QAM Insulin Glargine (Lantus Solostar) 100 Unit/Ml Inj 35 UNITS SC QPM, PEN Insulin Lispro (Human) (Humalog Kwikpen) 100 Unit/Ml Inj UNITS SC BREAKFAST COVERAGE:1:5 RATIO Insulin Lispro (Human) (Humalog Kwikpen) 100 Unit/Ml Inj UNITS SC Q DINNER COVERAGE: 1:6 RATIO Insulin Lispro (Human) (Humalog Kwikpen) 100 Unit/Ml Inj UNITS SC LUNCH& SNACKS PRN for MEALS CARB COVERAGE WITH LUNCH & SNACKS 1:7, GOAL 150 Insulin Lispro (Human) (Humalog Kwikpen) 100 Unit/Ml Inj UNITS SC HS COVERAGE 1: 7 RATIO Ipratropium-Albuterol (Combivent Respimat) 1 Aer Aer 1-2 PUFFS INH Q4-6HRS PRN for SOB/Wheezing Levalbuterol (Levalbuterol HCl) 0.63 Mg/3 Ml Nebu 1 PUFF INH QID PRN for SOB/Wheezing, #150 Levalbuterol Tartrate (Levalbuterol Tartrate Hfa) 45 Mcg/Act Aer 1-2 PUFFS INH Q4 PRN for SOB/Wheezing, #15 Levothyroxine Sodium (Synthroid) 150 Mcg Tab 150 MCG PO QAM, TAB Lisinopril (Zestril) 40 Mg Tab 40 MG PO QAM, TAB Magnesium Oxide (Mag-Ox) 400 Mg Tab 400 MG PO DAILY, TAB Metoclopramide HCl (Metoclopramide HCl) 10 Mg Tab 10 MG PO ACHS Mometasone Furoate (Nasal) (Mometasone Furoate) 50 Mcg/Act Spr 2 SPRAYS NA DAILY PRN for SINUS CONGESTION Nortriptyline Hcl (Pamelor) 25 Mg Cap 50 MG PO QPM TAKE 3-4 HOURS BEFORE BEDTIME Oxycodone/Acetaminophen 5MG/325MG (Percocet 5MG/325MG) Tab 1-2 TABLETS PO Q4H PRN for Pain, TAB PAIN Pantoprazole (Protonix) 20 Mg Tab 20 MG PO BID, #30 TAB Probiotic Product (Probiotic) 1 Cap Cap 1 TAB PO QAM Ranitidine (Zantac) 150 Mg Tab 150 MG PO TID, TAB Riboflavin (B-2) 100 Mg Tab 100 MG PO QID Simethicone (Gas-X Extra Strength) 125 Mg Chw 250 MG PO UD PRN for Gas or Constipation Tamsulosin Hcl (Flomax) 0.4 Mg Cap 0.4 MG PO HS, CAP Tramadol Hcl (Ultram) 50 Mg Tab 50-100 MG PO Q4H PRN for Pain [Sodium Chloride] () 1 TAB PO BID Discontinued Medications: Hydrocodone W/ Homatropine (Hydrocodone Bitartrate/Ho) 1 Tab Tab 1 TAB PO QID PRN for Pain Discharge Exam Physical Exam: General Appearance: no apparent distress ENT: pharynx normal Neck: no JVD Respiratory/Chest: no respiratory distress, no accessory muscle use, + rales (both bases, L>R) Cardiovascular: regular rate, rhythm, no gallop, no murmur, normal peripheral pulses Abdomen / GI: normal bowel sounds, non tender, soft, no organomegaly Extremities: no pedal edema Neurologic/Psychiatric: alert, oriented x 3 Hospital Course HISTORY OF PRESENT ILLNESS: 56yo male with long-standing T1DM complicated by retinopathy and neuropathy who presented with persistent shortness of breath for about a week associated with intermittent cough and generalized weakness. His cough was productive of yellow sputum. He was trying nebulizer treatments of albuterol at home but did not experience relief. In the Emergency Room he was found to have 37.6 degree temperature and at home it had been as high as 102 degrees. Chest x-ray was done showing a small infiltrate in the left lower lung and potentially right lung base as well. HOSPITAL COURSE: The patient's hospital course was marked by one of stability and improvement. All pulmonary symptoms improved quickly while here with use of IV antibiotic therapy. Vital signs remained stable, blood and sputum cultures were negative, and his acute kidney injury & hyponatremia resolved with IV hydration (discharge creatinine was 1.1, down from 1.6). He was transitioned to oral levaquin at discharge to complete 10 days in total of antibiotics. His asthma/COPD remained stable and without exacerbation while hospitalized. His Type 1 diabetes was uncontrolled at presentation but fortunately he had no signs of DKA. His glycemic control improved with titration of his insulins. All other medical problems remained stable while hospitalized. He will follow-up with his PCP within 1 week of discharge. Total Time Spent: Greater than 30 minutes This includes examination of the patient, discharge planning, medication reconciliation, and communication with other providers. Discharge Instructions Please refer to the electronic Patient Visit Report (Discharge Instructions) for additional information. Follow-Up PATRIC Wesley - SunDecember 27 at 11am Additional Copies To Josh Squires III, CRNP; Melanie Ríos, DO
== END 2016-12-22 12:30 | disposition home or self-care (01) | DRG 871 ==
LOC: ENRESERVDT → ENRESERVTM → C.EDB 11:18 → C.MED 17:03
PROVIDERS: ADMIT Hospitalist; ATTEND Internal Medicine
DX: A41.9 Sepsis, unspecified organism (principal); J18.9 Pneumonia, unspecified organism; E22.2 Syndrome of inappropriate secretion of antidiuretic hormone; N17.9 Acute kidney failure, unspecified; E86.0 Dehydration; J44.9 Chronic obstructive pulmonary disease, unspecified; J45.909 Unspecified asthma, uncomplicated; E10.65 Type 1 diabetes mellitus with hyperglycemia; E10.22 Type 1 diabetes mellitus with diabetic chronic kidney disease; E10.39 Type 1 diabetes mellitus with other diabetic ophthalmic complication; H54.0 Blindness, both eyes; E10.43 Type 1 diabetes mellitus with diabetic autonomic (poly)neuropathy; K31.84 Gastroparesis; I12.9 Hypertensive chronic kidney disease with stage 1 through stage 4 chronic kidney disease, or unspecified chronic kidney disease; N18.9 Chronic kidney disease, unspecified; E78.5 Hyperlipidemia, unspecified; Z86.73 Personal history of transient ischemic attack (TIA), and cerebral infarction without residual deficits; Z87.891 Personal history of nicotine dependence; Z79.51 Long term (current) use of inhaled steroids; Z79.891 Long term (current) use of opiate analgesic; Z79.899 Other long term (current) drug therapy

== ENCOUNTER 2016-12-24 10:49 | Emergency (ER) | payer BC, OTHER ==
[~2016-12-24] VITALS: Ht 177.8 cm; Wt 94.5 kg
[~2016-12-24 10:49] MED LIST changes: -ALBU1AER9 INH; -BUDE0.25 NEB; +DICL1GEL12 TOP; -DICL1GEL28 TOP; +GUAISYP4 PO; -HYCT PO; -INSDGI SC; +INSDGIPEN SC; -LEVA1NEB20 INH; +LEVA45AE INH; +LEVO1TAB34 PO; +MOME6000; -NSNN50 NAE; +OXYC-57 PO; -OXYC7.5T78 PO; -SODI1000 PO; +SODIUM CHLORIDE PO; +VNTHFA/IN INH; +XPNINS INH
[2016-12-24 10:57] VITALS: TEMP 36.5; Ht 177.8 cm; Wt 94.5 kg
[2016-12-24] MEDS ORDERED: METHYLPREDNISOLONE 125 MG VIAL IV STA (11:52)
[2016-12-24] MEDS ORDERED: FAMOTIDINE 20MG/102 ML D5W IV STA (11:52)
[2016-12-24] MEDS ORDERED: DiphenhydrAMINE HCL 50 MG/ML VIAL IV STA (11:52)
[2016-12-24 12:11] LABS: BASO % 0.5 %; BASO ABS # 0.03 K/uL (0-0.2); COMPLETE YES; EOS % 2.3 %; HEMATOCRIT 31.2 % (42-52); IG% 0.3 %; LYMPH % 27.5 %; LYMPH ABS # 1.77 K/uL (1.2-3.4); MEAN CELL VOLUME 84.8 fL (80-100); MEAN CORPUSCULAR HEMOGLOBIN 29.6 pg (25-34); MEAN CORPUSCULAR HGB CONC 34.9 g/dl (32-36); MEAN PLATELET VOLUME 9.6 fL (7.4-10.4); MONO % 8.5 %; NEUT % 60.9 %; PLATELET COUNT 275 K/uL (130-400); RED BLOOD COUNT 3.68 M/uL (4.7-6.1); WHITE BLOOD COUNT 6.44 K/uL (4.8-10.8)
[2016-12-24 12:40] LABS: ALT/SGPT 19 U/L (12-78); AST/SGOT 14 U/L (15-37); BLOOD UREA NITROGEN 17 mg/dl (7-18); BUN/CREATININE RATIO 13.9 (10-20); CALCIUM 8.7 mg/dl (8.5-10.1); CARBON DIOXIDE 29 mmol/L (21-32); CHLORIDE 100 mmol/L (98-107); GLUCOSE 91 mg/dl (70-99); POTASSIUM 4.7 mmol/L (3.5-5.1); SODIUM 135 mmol/L (136-145)
[2016-12-24 12:43] LABS: ALKALINE PHOSPHATASE 83 U/L (45-117)
[2016-12-24] MEDS ORDERED: PRED20TA PO (13:17)
[2016-12-24 13:46] VITALS: BP 130/69; PULSE 74; O2SAT 97
--- NOTE | 2016-12-24 17:10 | EMERGENCY ROOM VISIT NOTE ---
History Report prepared by Mary Ann: Raheem Tomlinson Under the Supervision of: Dr. Anatoly Steiner M.D. 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 Did a 3 day trial off lisinopril but symptoms resolved prior to stopping the medication. Has been taking medication for 30 years. These symptoms started 1 hour [employer] PING PONG TABLE with left sided tongue and oral pharynx swelling. Negative SOB, negative nausea/ vomiting. Recent diagnosis of b/l pneumonia. Patient Blind, awake and oriented. History of Present Illness The patient is a 56 year old male who presents to the Emergency Room with complaints of persistent left-sided tongue swelling that started around 1000 this morning. He also complains of throat swelling and a tight feeling in his throat. He says this is his 3rd episode of tongue swelling in the past 3 months. During those episodes, the swelling was also left-sided. He does note that his swelling is not as bad as when he got into the ambulance to come here. The patient currently has bilateral pneumonia and was released from the hospital recently. He was released on Levaquin, and has taken 2 doses so far. He has had Levaquin in the past without reaction. He was on IV antibiotics during his stay in the hospital. The patient has been taking Lisinopril for 30 years. The first time he had the episode of tongue swelling 3 months ago, he was brought to the hospital for a possible TIA, but nothing was found. He had a negative MRI of the brain. They initially thought it may be due to a TIA because his tongue seemed deviated but was most likely just swollen. The second time, the patient went to his primary care physician and the physician thought it may be a reaction to Lisinopril, and he was taken off of it for only 3 days. His has not noticed any facial swelling of the patient. The patient denies any tongue or facial pain, rashes, new shortness of breath, numbness or weakness on one side of the body, or trouble walking. He is on Atenolol and Amlodipine. Source of History: patient Onset: 1000 this morning Position: tongue (left-sided) Quality: other (swelling) Timing: other (persistent) Associated Symptoms: No SOB (new), No numbness (on one side of body), No rash, No weakness (one one side of body) Note: Associated symptoms: Throat swelling and feels tight. Denies tongue pain, trouble walking, facial swelling other than tongue. Review of Systems See HPI for pertinent positives & negatives. A total of 10 systems reviewed and were otherwise negative. Past Medical & Surgical Medical Problems: (1) Acute bronchitis (2) Acute bronchitis (3) Acute bronchitis (4) Asthma (5) Asthma, Unspecified (6) Bronchitis (7) Chest pain (8) Chest pain (9) COPD (chronic obstructive pulmonary disease) (10) COPD exacerbation (11) Diab Laverne Wo Compl, Type Ii Or Unspec Type, Not Uncntrld (12) Gastroparesis (13) Headache (14) Hyperlipidemia Nec/Nos (15) Hypertension Nos (16) Hyponatremia (17) Hyponatremia (18) Hypothyroidism Nos (19) Insulin dependent diabetes mellitus (20) Pneumonia (21) pneumonia/mild sepsis (22) pneumonia/mild sepsis (23) Stroke-like symptom (24) Subarachnoid bleed (25) Upper respiratory infection (26) URI (upper respiratory infection) Surgical Problems: (1) History of appendectomy Family History Cancer Diabetes mellitus FH: heart disease FHx: lung disease Hypertension Social History Smoking Status: Former Smoker Alcohol Use: none Drug Use: none Marital Status: Housing Status: lives with family Occupation Status: disabled Current/Historical Medications Scheduled Amlodipine Besylate (Amlodipine Besylate), 10 MG PO QAM Atenolol (Atenolol), 25 MG PO BID Atorvastatin (Atorvastatin Calcium), 40 MG PO HS Diclofenac Sodium (Topical) (Voltaren 1% Top Gel), 1 APPLN TOP UD Docusate Sodium (Docusate Sodium), 200 MG PO BID Fluticasone Prop/Salmeterol (Advair Diskus 250/50 60 Dose), 1 PUFF INH BID Folic Acid (Folvite), 2 MG PO BID Furosemide (Lasix), 40 MG PO QAM Ibzivetuwpt-Awvpaoiykgm-Bsl C- (Glucosamine Chondroitin), 1 TAB PO BID Insulin Glargine (Lantus), 28 UNITS SQ QAM Insulin Glargine (Lantus Solostar), 35 UNITS SC QPM Insulin Lispro (Human) (Humalog Kwikpen), UNITS SC BREAKFAST Insulin Lispro (Human) (Humalog Kwikpen), UNITS SC Q DINNER Insulin Lispro (Human) (Humalog Kwikpen), UNITS SC HS Levofloxacin (Levaquin), 1 TAB PO DAILY Levothyroxine Sodium (Synthroid), 150 MCG PO QAM Lisinopril (Zestril), 40 MG PO QAM Magnesium Oxide (Mag-Ox), 400 MG PO DAILY Metoclopramide HCl (Metoclopramide HCl), 10 MG PO ACHS Nortriptyline Hcl (Pamelor), 50 MG PO QPM Pantoprazole (Protonix), 20 MG PO BID Prednisone (Prednisone), 3 TAB PO DAILY Probiotic Product (Probiotic), 1 TAB PO QAM Ranitidine (Zantac), 150 MG PO TID Riboflavin (B-2), 100 MG PO QID Tamsulosin Hcl (Flomax), 0.4 MG PO HS [Sodium Chloride], 1 TAB PO BID Scheduled PRN Acetaminophen (Tylenol), 650 MG PO Q6 PRN for Pain Albuterol Hfa (Ventolin Hfa), 1-2 PUFFS INH Q4 PRN for SOB/Wheezing Guaifenesin/Codeine (Robitussin-Ac Syrup), 5 ML PO Q6H PRN for Cough Insulin Lispro (Human) (Humalog Kwikpen), UNITS SC LUNCH& SNACKS PRN for MEALS Ipratropium-Albuterol (Combivent Respimat), 1-2 PUFFS INH Q4-6HRS PRN for SOB/ Wheezing Levalbuterol (Levalbuterol HCl), 1 PUFF INH QID PRN for SOB/Wheezing Levalbuterol Tartrate (Levalbuterol Tartrate Hfa), 1-2 PUFFS INH Q4 PRN for SOB/ Wheezing Mometasone Furoate (Nasal) (Mometasone Furoate), 2 SPRAYS NA DAILY PRN for SINUS CONGESTION Oxycodone/Acetaminophen 5MG/325MG (Percocet 5MG/325MG), 1-2 TABLETS PO Q4H PRN for Pain Simethicone (Gas-X Extra Strength), 250 MG PO UD PRN for Gas or Constipation Tramadol Hcl (Ultram), 50-100 MG PO Q4H PRN for Pain Allergies Coded Allergies: Lorazepam (Verified Adverse Reaction, Unknown, Hallucinations, 06/29/16) Reported by PT. Physical Exam Vital Signs Date Time Temp Pulse Resp B/P Pulse Ox O2 Delivery O2 Flow Rate FiO2 12/24/16 13:46 74 16 130/69 97 12/24/16 11:08 80 12/24/16 10:57 Room Air 97 12/24/16 10:57 36.5 86 16 152/74 97 Room Air Physical Exam Constitutional: Vital signs reviewed. Eyes: Blind. ENT: Mucous membranes are moist. Neck supple without meningeal signs. Asymmetric swelling of tongue on the left, no uvular edema or shift. Mild swelling to left submandibular area. No tenderness or erythema. No dental tenderness. Respiratory: Clear to auscultation bilaterally. Breath sounds are equal bilaterally. Cardiovascular: Regular rate and rhythm. No rubs or gallops. GI: Soft, nondistended and nontender. Bowel sounds are present. Musculoskeletal: No peripheral edema. No lower extremity tenderness. No CVA tenderness. Integumentary: No cyanosis. Neurological: The patient is awake and alert. The patient is blind. Cranial nerves III-XII are intact. Motor is 5 out of 5 all extremities. Sensation is intact to light touch all extremities. Normal speech. No pronator drift. Psychiatric: Normal affect. Medical Decision & Procedures Laboratory Results 12/24/16 12:01 Red Blood Count 3.68, Mean Corpuscular Volume 84.8, Mean Corpuscular Hemoglobin 29.6, Mean Corpuscular Hemoglobin Concent 34.9, Mean Platelet Volume 9.6, Neutrophils (%) (Auto) 60.9, Lymphocytes (%) (Auto) 27.5, Monocytes (%) (Auto) 8.5, Eosinophils (%) (Auto) 2.3, Basophils (%) (Auto) 0.5, Neutrophils # (Auto) 3.92, Lymphocytes # (Auto) 1.77, Monocytes # (Auto) 0.55, Eosinophils # (Auto) 0.15, Basophils # (Auto) 0.03 12/24/16 12:01 Test 12/24/16 12:01 White Blood Count 6.44 K/uL (4.8-10.8) Red Blood Count 3.68 M/uL (4.7-6.1) Hemoglobin 10.9 g/dL (14.0-18.0) Hematocrit 31.2 % (42-52) Mean Corpuscular Volume 84.8 fL (80-100) Mean Corpuscular Hemoglobin 29.6 pg (25-34) Mean Corpuscular Hemoglobin Concent 34.9 g/dl (32-36) Platelet Count 275 K/uL (130-400) Mean Platelet Volume 9.6 fL (7.4-10.4) Neutrophils (%) (Auto) 60.9 % Lymphocytes (%) (Auto) 27.5 % Monocytes (%) (Auto) 8.5 % Eosinophils (%) (Auto) 2.3 % Basophils (%) (Auto) 0.5 % Neutrophils # (Auto) 3.92 K/uL (1.4-6.5) Lymphocytes # (Auto) 1.77 K/uL (1.2-3.4) Monocytes # (Auto) 0.55 K/uL (0.11-0.59) Eosinophils # (Auto) 0.15 K/uL (0-0.5) Basophils # (Auto) 0.03 K/uL (0-0.2) RDW Standard Deviation 43.4 fL (36.4-46.3) RDW Coefficient of Variation 14.0 % (11.5-14.5) Immature Granulocyte % (Auto) 0.3 % Immature Granulocyte # (Auto) 0.02 K/uL (0.00-0.02) Anion Gap 6.0 mmol/L (3-11) Est Creatinine Clear Calc Drug Dose 78.4 ml/min Estimated GFR () 77.3 Estimated GFR (Non- 66.7 BUN/Creatinine Ratio 13.9 (10-20) Calcium Level 8.7 mg/dl (8.5-10.1) Total Bilirubin 0.3 mg/dl (0.2-1) Direct Bilirubin < 0.1 mg/dl (0-0.2) Aspartate Amino Transf (AST/SGOT) 14 U/L (15-37) Alanine Aminotransferase (ALT/SGPT) 19 U/L (12-78) Alkaline Phosphatase 83 U/L (45-117) Total Protein 7.2 gm/dl (6.4-8.2) Albumin 3.3 gm/dl (3.4-5.0) Laboratory results as reviewed by me. Medications Administered Medications (Trade) Dose Ordered Sig/Shantel Route Start Time Stop Time Status Last Admin Dose Admin Methylprednisolone Sodium Succinate (Solu-Medrol IV) 125 mg NOW STAT IV 12/24/16 11:52 12/24/16 11:53 DC 12/24/16 12:09 125 MG Diphenhydramine HCl (Benadryl Inj) 50 mg NOW STAT IV 12/24/16 11:52 12/24/16 11:53 DC 12/24/16 12:09 50 MG Famotidine (Pepcid 20mg/100 ml) 20 mg ONE STAT IV 12/24/16 11:52 12/24/16 11:53 DC 12/24/16 12:09 20 MG ED Course 1139: The patient was evaluated in room C6. A complete history and physical exam was performed. 1152: Ordered Pepcid 20mg/100 ml 20 mg IV, Benadryl Inj 50 mg IV, Solu-Medrol IV 125 mg IV. 1314: I reevaluated the patient and he is resting comfortably. His swelling completely resolved. He was told to stop Lisinopril and to follow up with his primary care physician. He was also told to watch his blood pressure. The patient verbally expressed understanding and agreement of the treatment plan. The patient will be discharged. 1315: Ordered Valtrex Tab 500 mg PO. Medical Decision This is a 56-year-old male who presents with tongue and facial swelling. Differential diagnosis includes MAGUI inhibitor induced angioedema, idiopathic angioedema, allergic reaction, mumps, infection. I did perform a limited focused review of portions of the patient's old chart on the electronic medical record. The patient was admitted for pneumonia earlier this month, and was admitted in July of last year for questionable TIA. He had a negative MRI and MRA of neck. His carotid ultrasound was in normal limits. I did evaluate the patient as noted above. IV access was established. I did treat patient with Solu-Medrol IV, Pepcid IV and Benadryl IV. I did order and review the patient's blood work as noted in the electronic medical record. I did reassess the patient. He is feeling much better and his swelling is completely resolved. I was concerned about MAGUI inhibitor-induced angioedema and recommended he stop the lisinopril and talk to his physician about placing him on another antihypertensive agent. It seems unlikely that the patient is allergic to Levaquin. He has had in the past. He was given return instructions as outlined below. He was discharged with a prescription for prednisone. Impression Primary Impression: Angioedema Scribe Attestation The scribe's documentation has been prepared under my direct and personally reviewed by me in its entirety. I confirm that the note above accurately reflects all work, treatment, procedures, and medical decision making performed by me. Departure Information Dispostion Home / Self-Care Prescriptions Prednisone (Prednisone) 20 Mg Tab 3 TAB PO DAILY, #15 TAB FOR 4 DAYS Prov: Anatoly Steiner M.D. 12/24/16 Referrals Melanie Ríos DO (PCP) Forms HOME CARE DOCUMENTATION FORM, IMPORTANT VISIT INFORMATION Patient Instructions ED Angioedema, My [facility] Additional Instructions You have been examined and treated today on an emergency basis only. This is not a substitute for, or an effort to provide, complete comprehensive medical care. It is impossible to recognize and treat all injuries or illnesses in a single emergency department visit. It is therefore important that you follow up closely with your physician. Call as soon as possible for an appointment. Return for worsening symptoms or if you develop fever, difficulty breathing or any other concerning symptoms. Stop lisinopril. Keep an eye on your blood pressure. Start prednisone tomorrow. Use Benadryl as needed. Problem Qualifiers Primary Impression: Angioedema Encounter type: initial encounter Qualified Codes: T78.3XXA - Angioneurotic edema, initial encounter
== END 2016-12-24 13:48 | disposition home or self-care (01) ==
LOC: EDBD 10:49 → C.EDC 10:51
DX: T78.3XXA Angioneurotic edema, initial encounter (principal); X58.XXXA Exposure to other specified factors, initial encounter; J18.9 Pneumonia, unspecified organism; J44.9 Chronic obstructive pulmonary disease, unspecified; J45.909 Unspecified asthma, uncomplicated; E11.9 Type 2 diabetes mellitus without complications; I10 Essential (primary) hypertension; E03.9 Hypothyroidism, unspecified; E78.5 Hyperlipidemia, unspecified; Z87.891 Personal history of nicotine dependence; Z79.4 Long term (current) use of insulin; Z79.52 Long term (current) use of systemic steroids; Z79.899 Other long term (current) drug therapy

== ENCOUNTER → 2016-12-30 | Outpatient (CLI) | payer BC, OTHER ==
[~2016-12-30] MED LIST changes: +ALBINS/ INH; +BUDE1SUS6 INH; +LEVALBUTEROL INH; +LORA-741 PO; +PANT40TA PO; +PLMINS NEB; +PLMINSR25 INH; +PRED20TA PO; +PROM25TA9 PO; +SENN-65 PO; +SODI1TAB PO; +TUSSIGON PO; +[UNRECOGNIZED DRUG - OTHER] INH
[2016-12-30 11:14] LABS: BLOOD UREA NITROGEN 18 mg/dl (7-18); BUN/CREATININE RATIO 14.8 (10-20)
== END ==
LOC: C.LABBC 08:34
PROVIDERS: ATTEND Family Medicine
DX: R33.9 Retention of urine, unspecified (principal); N31.9 Neuromuscular dysfunction of bladder, unspecified

== ENCOUNTER → 2016-12-30 | Outpatient (CLI) | payer BC, OTHER ==
[2016-12-30 11:08] LABS: ESTIMATED AVERAGE GLUCOSE 209 mg/dl; HA1C FLAG Normal (Normal)
[2016-12-30 11:20] LABS: CHOLESTEROL/HDL RATIO 2.1
[2016-12-30 11:26] LABS: RATIO 47.9 mcg/mg (0-30.0)
== END ==
LOC: C.LABBC 08:37
PROVIDERS: ATTEND Internal Medicine Endocrinology, Diabetes & Metabolism
DX: E10.9 Type 1 diabetes mellitus without complications (principal)

== ENCOUNTER 2017-01-04 16:29 | Emergency (ER) | payer BC, OTHER ==
[~2017-01-04] VITALS: Ht 175.3 cm; Wt 94.0 kg
[~2017-01-04 16:29] MED LIST changes: -ALBINS/ INH; -BUDE1SUS6 INH; -LEVALBUTEROL INH; -LORA-741 PO; -PANT40TA PO; -PLMINS NEB; -PLMINSR25 INH; -PROM25TA9 PO; -SENN-65 PO; -SODI1TAB PO; -TUSSIGON PO; -[UNRECOGNIZED DRUG - OTHER] INH
[2017-01-04 16:34] VITALS: TEMP 37.5; O2SAT 95; Ht 175.3 cm; Wt 94.0 kg
[2017-01-04] MEDS ORDERED: SODIUM CHLORIDE 0.9% 500ML 500 ML IV STA (16:51)
[2017-01-04] MEDS ORDERED: SODIUM CHLORIDE 0.9% 1000ML 1,000 ML IV STA (16:51)
[2017-01-04] MEDS ORDERED: ACETAMINOPHEN 325 MG TAB PO STA (16:51)
[2017-01-04] MEDS ORDERED: PROMETHAZINE HCL INJ 6.25 MG in SODIUM CHLORIDE 0.9% 50ML 50 ML IV STA (16:51)
[2017-01-04] MEDS ORDERED: ONDANSETRON INJ 2 MG/ML 2 ML VIAL IV STA (16:51)
[2017-01-04 17:02] LABS: HEMATOCRIT 32.5 % (42-52); MEAN CELL VOLUME 84.9 fL (80-100); MEAN CORPUSCULAR HGB CONC 34.2 g/dl (32-36); MEAN PLATELET VOLUME 9.3 fL (7.4-10.4); PLATELET COUNT 263 K/uL (130-400); RED BLOOD COUNT 3.83 M/uL (4.7-6.1)
[2017-01-04 17:12] LABS: CALCIUM 8.4 mg/dl (8.5-10.1); CREATININE 1.1 mg/dl (0.60-1.40); MAGNESIUM 2.1 mg/dl (1.8-2.4); POTASSIUM 4.3 mmol/L (3.5-5.1)
[2017-01-04 17:15] LABS: ALB/GLOB RATIO 1.1 (0.9-2)
[2017-01-04 17:19] LABS: COMPLETE YES; EOS % 0.8 %; IG% 0.3 %; LYMPH % 5.7 %; LYMPH ABS # 0.43 K/uL (1.2-3.4); MONO % 4.1 %; NEUT % 89.1 %
--- NOTE | 2017-01-04 17:30 | EMERGENCY ROOM VISIT NOTE ---
History Report prepared by Mary Ann: Miguel A Taylor Under the Supervision of: Dr. Dar Stapleton M.D. First contact with patient: 16:47 Chief Complaint: FEVER Stated Complaint: VOMITING, FEVER, POSSIBLE PNEUMONIA RELAPSE History of Present Illness The patient is a 56 year old male who presents to the Emergency Room with complaints of intermittent nausea and vomiting starting this morning. He has had 3 vomiting episodes today. He was diagnosed with pneumonia last week and he was placed on Levaquin with relief. This morning, he started having a fever. He had a temperature of 100.1 degrees Fahrenheit this afternoon. He also started having a headache, cough, and a sore throat this morning. He took Tylenol about 5 hours ago. He started having twitching today. The last time he had similar muscle twitching was when he was severely dehydrated. The patient reports a normal fluid intake. He denies shortness of breath, abdominal pain, diarrhea, urinary symptoms, or any other complaints. The patient's daughter had similar symptoms (N/V) a few days ago. Source of History: patient Onset: this morning Position: other (global) Quality: other (nausea and vomiting) Timing: intermittent Modifying Factors (Relieving): tylenol Associated Symptoms: + cough, + fevers, + headache, No SOB, No abdominal pain, No diarrhea, No urinary symptoms Review of Systems See HPI for pertinent positives & negatives. A total of 10 systems reviewed and were otherwise negative. Past Medical & Surgical Medical Problems: (1) Acute bronchitis (2) Acute bronchitis (3) Acute bronchitis (4) Asthma (5) Asthma, Unspecified (6) Bronchitis (7) Chest pain (8) Chest pain (9) COPD (chronic obstructive pulmonary disease) (10) COPD exacerbation (11) Diab Laverne Wo Compl, Type Ii Or Unspec Type, Not Uncntrld (12) Gastroparesis (13) Headache (14) Hyperlipidemia Nec/Nos (15) Hypertension Nos (16) Hyponatremia (17) Hyponatremia (18) Hypothyroidism Nos (19) Insulin dependent diabetes mellitus (20) Pneumonia (21) pneumonia/mild sepsis (22) pneumonia/mild sepsis (23) Stroke-like symptom (24) Subarachnoid bleed (25) Upper respiratory infection (26) URI (upper respiratory infection) Surgical Problems: (1) History of appendectomy Family History Cancer Diabetes mellitus FH: heart disease FHx: lung disease Hypertension Social History Smoking Status: Former Smoker Alcohol Use: none Drug Use: none Marital Status: Housing Status: lives with family Occupation Status: disabled Current/Historical Medications Scheduled Amlodipine Besylate (Amlodipine Besylate), 10 MG PO QAM Atenolol (Atenolol), 1.5 TABS PO BID Atorvastatin (Atorvastatin Calcium), 40 MG PO HS Diclofenac Sodium (Topical) (Voltaren 1% Top Gel), 1 APPLN TOP UD Docusate Sodium (Docusate Sodium), 200 MG PO BID Fluticasone Prop/Salmeterol (Advair Diskus 250/50 60 Dose), 1 PUFF INH BID Folic Acid (Folvite), 2 MG PO BID Furosemide (Lasix), 40 MG PO QAM Kiecnssqjac-Jdswxkpctxu-Urs C- (Glucosamine Chondroitin), 1 TAB PO BID Insulin Glargine (Lantus), 28 UNITS SQ QAM Insulin Glargine (Lantus Solostar), 35 UNITS SC QPM Insulin Lispro (Human) (Humalog Kwikpen), UNITS SC BREAKFAST Insulin Lispro (Human) (Humalog Kwikpen), UNITS SC Q DINNER Insulin Lispro (Human) (Humalog Kwikpen), UNITS SC HS Levothyroxine Sodium (Synthroid), 150 MCG PO QAM Magnesium Oxide (Mag-Ox), 400 MG PO DAILY Metoclopramide HCl (Metoclopramide HCl), 10 MG PO ACHS Nortriptyline Hcl (Pamelor), 50 MG PO QPM Pantoprazole (Protonix), 20 MG PO BID Probiotic Product (Probiotic), 1 TAB PO QAM Ranitidine (Zantac), 150 MG PO TID Riboflavin (B-2), 100 MG PO QID Tamsulosin Hcl (Flomax), 0.4 MG PO HS [Sodium Chloride], 1 TAB PO BID Scheduled PRN Acetaminophen (Tylenol), 650 MG PO Q6 PRN for Pain Albuterol Hfa (Ventolin Hfa), 1-2 PUFFS INH Q4 PRN for SOB/Wheezing Guaifenesin/Codeine (Robitussin-Ac Syrup), 5 ML PO Q6H PRN for Cough Insulin Lispro (Human) (Humalog Kwikpen), UNITS SC LUNCH& SNACKS PRN for MEALS Ipratropium-Albuterol (Combivent Respimat), 1-2 PUFFS INH Q4-6HRS PRN for SOB/ Wheezing Levalbuterol (Levalbuterol HCl), 1 PUFF INH QID PRN for SOB/Wheezing Levalbuterol Tartrate (Levalbuterol Tartrate Hfa), 1-2 PUFFS INH Q4 PRN for SOB/ Wheezing Mometasone Furoate (Nasal) (Mometasone Furoate), 2 SPRAYS NA DAILY PRN for SINUS CONGESTION Oxycodone/Acetaminophen 5MG/325MG (Percocet 5MG/325MG), 1-2 TABLETS PO Q4H PRN for Pain Promethazine Hcl (Phenergan), 25 MG PO Q6H PRN for Nausea Simethicone (Gas-X Extra Strength), 250 MG PO UD PRN for Gas or Constipation Tramadol Hcl (Ultram), 50-100 MG PO Q4H PRN for Pain Allergies Coded Allergies: Lorazepam (Verified Adverse Reaction, Unknown, Hallucinations, 01/04/17) Reported by PT. Physical Exam Vital Signs Date Time Temp Pulse Resp B/P Pulse Ox O2 Delivery O2 Flow Rate FiO2 01/04/17 18:22 83 16 152/72 Room Air 01/04/17 17:02 92 01/04/17 16:34 37.5 99 18 144/81 95 Room Air Physical Exam GENERAL: Patient is in no acute distress. HEENT: No acute trauma, normocephalic atraumatic, mucous membranes moist, no nasal congestion, no scleral icterus. Blind. NECK: No stridor, no adenopathy, no meningismus, trachea is midline. LUNGS: Clear to auscultation bilaterally, no wheeze, no rhonchi, breath sounds equal. HEART: Without murmurs gallops or rubs, regular rate and rhythm. ABDOMEN: Soft, nontender, bowel sounds positive, no hernias, no peritonitis. EXTREMITIES: No cyanosis or edema, full range of motion of all the joints without pain or difficulty, no signs for acute trauma. NEUROLOGIC: Oriented x 3, no acute motor or sensory deficits, no focal weakness. SKIN: No rash, no jaundice, no diaphoresis. Medical Decision & Procedures ER Provider Diagnostic Interpretation: X-ray results as stated below per interpretation by me and the radiologist: CHEST ONE VIEW PORTABLE HISTORY: cough, fever COMPARISON: Chest 12/20/2016. FINDINGS: The lungs are clear. Cardiac silhouette is normal in size. No pleural effusions. No pneumothorax. IMPRESSION: No acute process. Electronically signed by: Jack Wheeler M.D. 01/04/2017 6:04 PM Dictated Date/Time: 01/04/2017 6:04 PM Laboratory Results 01/04/17 16:45 Red Blood Count 3.83, Mean Corpuscular Volume 84.9, Mean Corpuscular Hemoglobin 29.0, Mean Corpuscular Hemoglobin Concent 34.2, Mean Platelet Volume 9.3, Neutrophils (%) (Auto) 89.1, Lymphocytes (%) (Auto) 5.7, Monocytes (%) (Auto) 4.1, Eosinophils (%) (Auto) 0.8, Basophils (%) (Auto) 0.0, Neutrophils # (Auto) 6.68, Lymphocytes # (Auto) 0.43, Monocytes # (Auto) 0.31, Eosinophils # (Auto) 0.06, Basophils # (Auto) 0.00 01/04/17 16:45 Test 01/04/17 16:45 01/04/17 19:40 White Blood Count 7.50 K/uL (4.8-10.8) Red Blood Count 3.83 M/uL (4.7-6.1) Hemoglobin 11.1 g/dL (14.0-18.0) Hematocrit 32.5 % (42-52) Mean Corpuscular Volume 84.9 fL (80-100) Mean Corpuscular Hemoglobin 29.0 pg (25-34) Mean Corpuscular Hemoglobin Concent 34.2 g/dl (32-36) Platelet Count 263 K/uL (130-400) Mean Platelet Volume 9.3 fL (7.4-10.4) Neutrophils (%) (Auto) 89.1 % Lymphocytes (%) (Auto) 5.7 % Monocytes (%) (Auto) 4.1 % Eosinophils (%) (Auto) 0.8 % Basophils (%) (Auto) 0.0 % Neutrophils # (Auto) 6.68 K/uL (1.4-6.5) Lymphocytes # (Auto) 0.43 K/uL (1.2-3.4) Monocytes # (Auto) 0.31 K/uL (0.11-0.59) Eosinophils # (Auto) 0.06 K/uL (0-0.5) Basophils # (Auto) 0.00 K/uL (0-0.2) RDW Standard Deviation 43.3 fL (36.4-46.3) RDW Coefficient of Variation 14.0 % (11.5-14.5) Immature Granulocyte % (Auto) 0.3 % Immature Granulocyte # (Auto) 0.02 K/uL (0.00-0.02) Anion Gap 9.0 mmol/L (3-11) Est Creatinine Clear Calc Drug Dose 83.9 ml/min Estimated GFR () 85.9 Estimated GFR (Non- 74.1 BUN/Creatinine Ratio 15.0 (10-20) Calcium Level 8.4 mg/dl (8.5-10.1) Magnesium Level 2.1 mg/dl (1.8-2.4) Total Bilirubin 0.5 mg/dl (0.2-1) Aspartate Amino Transf (AST/SGOT) 40 U/L (15-37) Alanine Aminotransferase (ALT/SGPT) 55 U/L (12-78) Alkaline Phosphatase 109 U/L (45-117) Total Protein 7.2 gm/dl (6.4-8.2) Albumin 3.8 gm/dl (3.4-5.0) Globulin 3.4 gm/dl (2.5-4.0) Albumin/Globulin Ratio 1.1 (0.9-2) Urine Color YELLOW Urine Appearance CLEAR (CLEAR) Urine pH 7.5 (4.5-7.5) Urine Specific [place] 1.004 (1.000-1.030) Urine Protein NEG (NEG) Urine Glucose (UA) NEG (NEG) Urine Ketones NEG (NEG) Urine Occult Blood NEG (NEG) Urine Nitrite NEG (NEG) Urine Bilirubin NEG (NEG) Urine Urobilinogen NEG (NEG) Urine Leukocyte Esterase NEG (NEG) Urine dip is negative for blood or infection. Laboratory results reviewed by me. Medications Administered Medications (Trade) Dose Ordered Sig/Shantel Route Start Time Stop Time Status Last Admin Dose Admin Ondansetron HCl 4 mg 4 mg NOW STAT IV 01/04/17 16:51 01/04/17 16:56 DC 01/04/17 17:41 4 MG Promethazine HCl 6.25 mg/Sodium Chloride 50.25 ml @ 204 mls/hr NOW STAT IV 01/04/17 16:51 01/04/17 17:05 DC 01/04/17 17:41 204 MLS/HR Sodium Chloride 500 ml @ 999 mls/hr Q31M STAT IV 01/04/17 16:51 01/04/17 17:21 DC 01/04/17 17:42 999 MLS/HR Sodium Chloride (Nss 1000ml) 1,000 ml @ 200 mls/hr Q5H STAT IV 01/04/17 16:51 01/04/17 21:50 01/04/17 20:13 200 MLS/HR Acetaminophen (Tylenol Tab) 650 mg NOW STAT PO 01/04/17 16:51 01/04/17 16:56 DC 01/04/17 17:41 650 MG Promethazine HCl (Phenergan Tab) 50 mg NOW ONCE PO 01/04/17 20:00 01/04/17 20:01 DC 01/04/17 20:13 50 MG ECG Indication: nausea Rate (beats per minute): 95 Rhythm: normal sinus Findings: no acute ischemic change, no ectopy ED Course 1646: The patient was evaluated in room B10. A complete history and physical exam was performed. 1650: Tylenol Tab 650 mg PO, Sodium Chloride 1000 ml @ 200 mls/hr IV, Sodium Chloride 500 ml @ 999 mls/hr IV, Promethazine HCl 6.25 mg/Sodium Chloride 50.25 ml @ 204 mls/hr IV, Zofran Inj 4 mg IV 1939: I reevaluated the patient who is doing well. His urine is being dipped now. 1954: Reevaluated the patient. Discussed results and discharge instructions: He verbalized understanding and agreement. The patient is ready for discharge. 1999: Phenergan Tab 50 mg PO Medical Decision Differential diagnosis includes but is not limited to dehydration, anemia, electrolyte imbalance, food borne illness, viral illness, pneumonia, UTI. There is no leukocytosis or concerning anemia. No significant electrolyte abnormality, kidney failure or hepatitis. Urinalysis does not show evidence for infection. Chest x-ray shows no pneumonia or CHF. EKG shows a normal sinus rhythm, no acute ischemia. On exam, there were no focal neurologic deficits. The patient received IV saline, he was given IV Phenergan and IV Zofran. He received oral Tylenol. He feels improved, he has been resting comfortably. No further vomiting. The patient was concerned that he had redeveloped pneumonia. This is not the case. I suspect he has the same viral illness that his daughter had a few days ago. The patient is being discharged with Phenergan, a bland diet, Tylenol for fever and aches, rest. If worsening, he can return. Impression Primary Impression: Vomiting Additional Impressions: Dehydration Shivering Scribe Attestation The scribe's documentation has been prepared under my direction and personally reviewed by me in its entirety. I confirm that the note above accurately reflects all work, treatment, procedures, and medical decision making performed by me. Departure Information Dispostion Home / Self-Care Prescriptions Promethazine Hcl (Phenergan) 25 Mg Tab 25 MG PO Q6H Y for Nausea, #15 TAB Prov: Dar Stapleton M.D. 01/04/17 Referrals Melanie Ríos DO (PCP) Forms HOME CARE DOCUMENTATION FORM, IMPORTANT VISIT INFORMATION Patient Instructions My [facility] Additional Instructions stay well hydrated rest tylenol for fever and pain phenergan 1-2 tab every 6 hours for nausea bland diet--crackers, soup, toast, gatorade return if worsening lab testing was ok today, chest film was ok Problem Qualifiers
--- NOTE | 2017-01-04 18:06 | DIAGNOSTIC IMAGING REPORT ---
CHEST ONE VIEW PORTABLE HISTORY: cough, fever COMPARISON: Chest 12/20/2016. FINDINGS: The lungs are clear. Cardiac silhouette is normal in size. No pleural effusions. No pneumothorax. IMPRESSION: No acute process. Electronically signed by: Jack Wheeler M.D. 01/04/2017 6:04 PM Dictated Date/Time: 01/04/2017 6:04 PM
[2017-01-04 18:22] VITALS: BP 152/72; PULSE 83
[2017-01-04] MEDS ORDERED: PROM25TA9 PO (19:54)
[2017-01-04] MEDS ORDERED: PROMETHAZINE HCL 25 MG TAB PO ONE (20:00)
[2017-01-04 20:01] LABS: URINE APPEARANCE CLEAR (CLEAR); URINE BILIRUBIN NEG (NEG); URINE COLOR YELLOW; URINE NITRITE NEG (NEG); URINE PH 7.5 (4.5-7.5); URINE SPECIFIC GRAVITY 1.004 (1.000-1.030); UROBILINOGEN NEG (NEG)
[2017-01-04 20:09] LABS: MANUAL MICROSCOPIC REQUIRED? NO; REVIEW REQ? NO
== END 2017-01-04 20:15 | disposition home or self-care (01) ==
LOC: C.EDB 16:30
DX: E86.0 Dehydration (principal); R11.10 Vomiting, unspecified; R68.83 Chills (without fever); I10 Essential (primary) hypertension; E78.5 Hyperlipidemia, unspecified; E11.9 Type 2 diabetes mellitus without complications; E03.9 Hypothyroidism, unspecified; J44.9 Chronic obstructive pulmonary disease, unspecified; J45.909 Unspecified asthma, uncomplicated; K31.84 Gastroparesis; Z86.73 Personal history of transient ischemic attack (TIA), and cerebral infarction without residual deficits; Z86.19 Personal history of other infectious and parasitic diseases; Z98.890 Other specified postprocedural states; Z79.4 Long term (current) use of insulin; Z79.899 Other long term (current) drug therapy; Z87.891 Personal history of nicotine dependence; Z80.9 Family history of malignant neoplasm, unspecified; Z83.3 Family history of diabetes mellitus; Z82.49 Family history of ischemic heart disease and other diseases of the circulatory system

== ENCOUNTER 2017-01-24 12:34 | Emergency (ER) | payer BC, OTHER ==
[~2017-01-24] VITALS: Ht 177.2 cm; Wt 96.7 kg
[~2017-01-24 12:34] MED LIST changes: -LEVO1TAB34 PO; -LISI40TA PO; -PRED20TA PO; +PROM25TA9 PO
[2017-01-24 12:36] VITALS: TEMP 36.7; Ht 177.2 cm; Wt 96.7 kg
[2017-01-24] MEDS ORDERED: DOCUSATE SODIUM/SENNA 50/8.6MG TAB PO ONE (13:00)
[2017-01-24] MEDS ORDERED: PLMINS NEB (13:20)
[2017-01-24] MEDS ORDERED: [UNRECOGNIZED DRUG - OTHER] INH (13:20)
[2017-01-24] MEDS ORDERED: PLMINSR25 INH (13:20)
[2017-01-24] MEDS ORDERED: SODI1TAB PO (13:20)
[2017-01-24] MEDS ORDERED: LEVALBUTEROL INH (13:20)
[2017-01-24] MEDS ORDERED: TUSSIGON PO (13:20)
--- NOTE | 2017-01-24 13:27 | EMERGENCY ROOM VISIT NOTE ---
History Report prepared by Mary Ann: Miguel A Taylor Under the Supervision of: Dr. Dar Stapleton M.D. First contact with patient: 12:42 Chief Complaint: CONSTIPATION Stated Complaint: IMPAIRED BOWEL History of Present Illness The patient is a 56 year old male who presents to the Emergency Room with complaints of persistent constipation starting about 10 days ago. His last bowel movement was about 10 days ago. He reports some rectal pressure. He has been taking stool softeners, milk of magnesia, and MiraLAX without relief. He also complains of nausea and abdominal pain but denies vomiting. He denies urinary symptoms, or any other complaints. He has a history of constipation with the last episode occurring in summer 2015. The patient is on chronic pain meds. Source of History: patient Onset: about 10 days ago Position: other (global) Quality: other (constipation) Timing: other (persistent) Modifying Factors (Relieving): other (stool softeners, milk of magnesia, and MiraLAX without relief) Associated Symptoms: + abdominal pain, + nausea, No urinary symptoms, No vomiting Review of Systems See HPI for pertinent positives & negatives. A total of 10 systems reviewed and were otherwise negative. Past Medical & Surgical Medical Problems: (1) Acute bronchitis (2) Acute bronchitis (3) Acute bronchitis (4) Asthma (5) Asthma, Unspecified (6) Bronchitis (7) Chest pain (8) Chest pain (9) COPD (chronic obstructive pulmonary disease) (10) COPD exacerbation (11) Diab Laverne Wo Compl, Type Ii Or Unspec Type, Not Uncntrld (12) Gastroparesis (13) Headache (14) Hyperlipidemia Nec/Nos (15) Hypertension Nos (16) Hyponatremia (17) Hyponatremia (18) Hypothyroidism Nos (19) Insulin dependent diabetes mellitus (20) Pneumonia (21) pneumonia/mild sepsis (22) pneumonia/mild sepsis (23) Stroke-like symptom (24) Subarachnoid bleed (25) Upper respiratory infection (26) URI (upper respiratory infection) Surgical Problems: (1) History of appendectomy Family History Cancer Diabetes mellitus FH: heart disease FHx: lung disease Hypertension Social History Smoking Status: Former Smoker Alcohol Use: none Drug Use: none Marital Status: Housing Status: lives with family Occupation Status: disabled Current/Historical Medications Scheduled Amlodipine Besylate (Amlodipine Besylate), 10 MG PO QAM Atenolol (Atenolol), 1.5 TABS PO BID Atorvastatin (Atorvastatin Calcium), 40 MG PO HS Budesonide (Budesonide), 1 VIAL NEB PRN Budesonide (Pulmicort Respules 0.25MG/2ML), 2 ML INH UD Diclofenac Sodium (Topical) (Voltaren 1% Top Gel), 1 APPLN TOP UD Docusate Sodium (Docusate Sodium), 200 MG PO BID Fluticasone Prop/Salmeterol (Advair Diskus 250/50 60 Dose), 1 PUFF INH BID Folic Acid (Folvite), 1 MG PO BID Furosemide (Lasix), 40 MG PO QAM Csmxwecetod-Tgkzbeclhaz-Dkf C- (Glucosamine Chondroitin), 1 TAB PO BID Insulin Glargine (Lantus), 28 UNITS SQ QAM Insulin Glargine (Lantus Solostar), 35 UNITS SC QPM Insulin Lispro (Human) (Humalog Kwikpen), UNITS SC BREAKFAST Insulin Lispro (Human) (Humalog Kwikpen), UNITS SC Q DINNER Insulin Lispro (Human) (Humalog Kwikpen), UNITS SC HS Levothyroxine Sodium (Synthroid), 150 MCG PO QAM Magnesium Oxide (Mag-Ox), 400 MG PO BID Metoclopramide HCl (Metoclopramide HCl), 10 MG PO ACHS Nortriptyline Hcl (Pamelor), 50 MG PO QPM Pantoprazole (Protonix), 20 MG PO BID Probiotic Product (Probiotic), 1 TAB PO QAM Ranitidine (Zantac), 150 MG PO QID Riboflavin (B-2), 100 MG PO QID Sennosides-Docusate Sodium (Senokot S), 1-2 TAB PO BID Sodium Chloride (Sodium Chloride), 1 TAB PO BID Tamsulosin Hcl (Flomax), 0.4 MG PO HS [Albuterol Proventil], 2 PUFFS INH PRN [Levabuterol 0.31MG], 1 VIAL INH UD [Tussigon], 1 TAB PO UD Scheduled PRN Acetaminophen (Tylenol), 650 MG PO Q6 PRN for Pain Albuterol Hfa (Ventolin Hfa), 1-2 PUFFS INH Q4 PRN for SOB/Wheezing Insulin Lispro (Human) (Humalog Kwikpen), UNITS SC LUNCH& SNACKS PRN for MEALS Ipratropium-Albuterol (Combivent Respimat), 1-2 PUFFS INH Q4-6HRS PRN for SOB/ Wheezing Levalbuterol Tartrate (Levalbuterol Tartrate Hfa), 1-2 PUFFS INH Q4 PRN for SOB/ Wheezing Mometasone Furoate (Nasal) (Mometasone Furoate), 2 SPRAYS NA DAILY PRN for SINUS CONGESTION Oxycodone/Acetaminophen 5MG/325MG (Percocet 5MG/325MG), 1-2 TABLETS PO Q4H PRN for Pain Simethicone (Gas-X Extra Strength), 250 MG PO UD PRN for Gas or Constipation Tramadol Hcl (Ultram), 50-100 MG PO Q4H PRN for Pain Allergies Coded Allergies: Lorazepam (Verified Adverse Reaction, Unknown, Hallucinations, 01/04/17) Reported by PT. Physical Exam Vital Signs Date Time Temp Pulse Resp B/P Pulse Ox O2 Delivery O2 Flow Rate FiO2 01/24/17 14:23 88 12 161/79 98 01/24/17 12:36 36.7 91 18 144/77 97 Room Air Physical Exam GENERAL: Patient is in no acute distress. HEENT: No acute trauma, normocephalic atraumatic, mucous membranes moist, no nasal congestion, no scleral icterus. Blind. NECK: No stridor, no adenopathy, no meningismus, trachea is midline. LUNGS: Clear to auscultation bilaterally, no wheeze, no rhonchi, breath sounds equal. HEART: Without murmurs gallops or rubs, regular rate and rhythm. ABDOMEN: Soft, mildly tender over the lower pelvis bilaterally, bowel sounds positive, no hernias, no peritonitis. RECTAL: Hard stool in the rectal vault. EXTREMITIES: No cyanosis or edema, full range of motion of all the joints without pain or difficulty, no signs for acute trauma. NEUROLOGIC: Oriented x 3, no acute motor or sensory deficits, no focal weakness. SKIN: No rash, no jaundice, no diaphoresis. Medical Decision & Procedures Medications Administered Medications (Trade) Dose Ordered Sig/Shantel Route Start Time Stop Time Status Last Admin Dose Admin Senna/Docusate Sodium (Senokot S Tab) 2 tab NOW ONCE PO 01/24/17 13:00 01/24/17 13:01 DC 01/24/17 13:05 2 TAB ED Course 1242: The patient was evaluated in room A09B. A complete history and physical exam was performed. 1300: Senokot Tab 2 tab PO 1348: Reevaluated the patient who feels much better. Discussed results and discharge instructions: He verbalized understanding and agreement. The patient is ready for discharge. Medical Decision Differential diagnosis includes but is not limited to constipation, urinary retention, bowel obstruction, hemorrhoid. The patient presents with complaints of constipation. He was not toxic or febrile. There was no peritonitis. Rectal exam revealed hard stool in the rectal vault. The patient states he has not had a bowel movement in over a week. The patient was given oral Senokot and a soapsuds enema, he had significant relief, he is being discharged home on Senokot in place of the Colace. If worsening, he can return. Impression Primary Impression: Constipation Scribe Attestation The scribe's documentation has been prepared under my direction and personally reviewed by me in its entirety. I confirm that the note above accurately reflects all work, treatment, procedures, and medical decision making performed by me. Departure Information Dispostion Home / Self-Care Prescriptions Sennosides-Docusate Sodium (SENOKOT S) 1 Tab Tab 1-2 TAB PO BID, #60 TAB 4 Refills Prov: Dar Stapleton M.D. 01/24/17 Referrals Melanie Ríos DO (PCP) Forms HOME CARE DOCUMENTATION FORM, IMPORTANT VISIT INFORMATION Patient Instructions My [facility] Additional Instructions switch to senokot 2x per day instead of colace return for worsening symptoms
[2017-01-24] MEDS ORDERED: SENN-65 PO (14:06)
[2017-01-24 14:23] VITALS: BP 161/79; PULSE 88; O2SAT 98
== END 2017-01-24 14:25 | disposition home or self-care (01) ==
LOC: C.EDB 12:35 → C.EDA 14:25
DX: K59.00 Constipation, unspecified (principal); J45.909 Unspecified asthma, uncomplicated; J44.9 Chronic obstructive pulmonary disease, unspecified; E11.9 Type 2 diabetes mellitus without complications; I10 Essential (primary) hypertension; E03.9 Hypothyroidism, unspecified; Z87.01 Personal history of pneumonia (recurrent); Z87.891 Personal history of nicotine dependence; Z90.89 Acquired absence of other organs; Z83.3 Family history of diabetes mellitus; Z82.49 Family history of ischemic heart disease and other diseases of the circulatory system; Z79.4 Long term (current) use of insulin; Z79.899 Other long term (current) drug therapy

== ENCOUNTER → 2017-02-26 | Outpatient (CLI) | payer BC, OTHER ==
[~2017-02-26] VITALS: Ht 176.5 cm; Wt 95.9 kg
[~2017-02-26] MED LIST changes: +ALBINS/ INH; +ALBU18002 INH; +ALBUAER INH; +AMLO10TA2 PO; +BUDE1SUS6 INH; +FURO40TA3 PO; -GUAISYP4 PO; +LEVALBUTEROL INH; +LORA-741 PO; +PANT40TA PO; +PLMINS NEB; +PLMINSR25 INH; -PROM25TA9 PO; +RANI300T PO; +SENN-61 PO; +SENN-65 PO; +SODI1TAB PO; -SODIUM CHLORIDE PO; +SPIR25TA PO; +TNR50 PO; +TUSSIGON PO; -XPNINS INH; +[UNRECOGNIZED DRUG - OTHER] INH
[2017-02-26 16:10] VITALS: BP 137/74; PULSE 84; Ht 176.5 cm; Wt 95.9 kg
== END | disposition home or self-care (01) ==
LOC: C.NEUR 15:40
PROVIDERS: ATTEND Physician Assistant
DX: G47.33 Obstructive sleep apnea (adult) (pediatric) (principal)

== ENCOUNTER → 2017-03-30 | Outpatient (CLI) | payer BC, OTHER ==
[2017-03-30 13:54] LABS: BLOOD UREA NITROGEN 13 mg/dl (7-18); BUN/CREATININE RATIO 9.2 (10-20); CARBON DIOXIDE 28 mmol/L (21-32); CHLORIDE 92 mmol/L (98-107); GLUCOSE 303 mg/dl (70-99); POTASSIUM 4.3 mmol/L (3.5-5.1); SODIUM 129 mmol/L (136-145)
[2017-03-30 14:03] LABS: PHOSPHORUS 3.6 mg/dl (2.5-4.9)
[2017-03-30 14:03] LABS: URINE APPEARANCE CLEAR (CLEAR); URINE BILIRUBIN NEG (NEG); URINE COLOR YELLOW; URINE NITRITE NEG (NEG); URINE PH 7.5 (4.5-7.5); URINE SPECIFIC GRAVITY 1.008 (1.000-1.030); UROBILINOGEN NEG (NEG)
[2017-03-30 14:09] LABS: MANUAL MICROSCOPIC REQUIRED? NO; REVIEW REQ? NO
[2017-03-30 14:10] LABS: BETA-HYDROXYBUTYRATE 1.03 mg/dL (0.2-2.81)
[2017-03-30 14:52] LABS: CALCIUM 8.3 mg/dl (8.5-10.1)
== END | disposition home or self-care (01) ==
LOC: C.LABBC 10:02
PROVIDERS: ATTEND Internal Medicine Nephrology
DX: E87.1 Hypo-osmolality and hyponatremia (principal); E03.9 Hypothyroidism, unspecified; E78.5 Hyperlipidemia, unspecified

== ENCOUNTER → 2017-05-07 | Outpatient (CLI) | payer BC, OTHER ==
[~2017-05-07] MED LIST changes: -ALBU18002 INH; -ALBUAER INH; -AMLO10TA2 PO; -FURO40TA3 PO; -RANI300T PO; -SENN-61 PO; -SPIR25TA PO; -TNR50 PO
[2017-05-07 11:43] LABS: BLOOD UREA NITROGEN 13 mg/dl (7-18); BUN/CREATININE RATIO 10.3 (10-20); CALCIUM 8.8 mg/dl (8.5-10.1); CARBON DIOXIDE 32 mmol/L (21-32); CHLORIDE 97 mmol/L (98-107); GLUCOSE 151 mg/dl (70-99); PHOSPHORUS 4.2 mg/dl (2.5-4.9); POTASSIUM 4.3 mmol/L (3.5-5.1); SODIUM 135 mmol/L (136-145)
== END | disposition home or self-care (01) ==
LOC: C.LABBC 09:02
PROVIDERS: ATTEND Internal Medicine Nephrology
DX: I10 Essential (primary) hypertension (principal)

== ENCOUNTER → 2017-05-09 | Outpatient (CLI) | payer BC, OTHER ==
[2017-05-09 14:11] LABS: THYROID STIMULATING HORMONE 8.04 uIu/ml (0.300-4.500)
== END | disposition home or self-care (01) ==
LOC: C.LABBC 10:10
PROVIDERS: ATTEND Nurse Practitioner Family
DX: E03.9 Hypothyroidism, unspecified (principal)

== ENCOUNTER 2017-05-10 14:15 | Emergency (ER) | payer BC, OTHER ==
[~2017-05-10] VITALS: Ht 175.3 cm; Wt 100.9 kg
[~2017-05-10 14:15] MED LIST changes: -ALBINS/ INH; -BUDE1SUS6 INH; -LORA-741 PO; -PANT40TA PO
[2017-05-10 14:22] VITALS: Ht 175.3 cm; Wt 100.9 kg
[2017-05-10] MEDS ORDERED: LORA-741 PO (14:55)
--- NOTE | 2017-05-10 15:15 | EMERGENCY ROOM VISIT NOTE ---
History Report prepared by Mary Ann: Raheem Tomlinson Under the Supervision of: Dr. Sudhakar Hurtado M.D. First contact with patient: 15:00 Chief Complaint: SWELLING TO EXTREMITY Stated Complaint: JOANNA. 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 He says that his legs swelled up around 10 months ago, and was put on Lasix. However, he states that his swelling has not gotten any better, and he recently had his Lasix dose increased and was put on Spironolactone last month. The patient's says that the patient's swelling has still persisted, and the swelling has worsened in the past few days. The patient's noticed increased swelling last night and told the patient to call his primary care physician's office. The patient notes that his left leg is a bit more swollen than his right leg. The patient says that he called his primary care office this morning, and talked to a nurse who recommended that the patient come here for evaluation. The patient's notes that the patient had episodes of vomiting and diarrhea last week, but has since not had any further episodes and is feeling better. The patient denies any chest pain, new shortness of breath, fevers, chills, cough, new back pain, new abdominal bloating, urinary symptoms, bladder or bowel problems, or new foot pain. The patient also denies any recent weight changes. He notes that he was on Aspirin previously and had a stroke, and was then taken off the Aspirin. The patient is an ex-smoker. Source of History: patient, spouse/significant other Onset: A few days ago Position: leg (bilateral) Quality: other (swelling) Timing: worsening Associated Symptoms: No fevers, No chills, No chest pain, No SOB (new), No back pain (new), No urinary symptoms Note: Associated symptoms: Denies any new abdominal bloating, bladder or bowel problems, or new foot pain. Review of Systems See HPI for pertinent positives & negatives. A total of 10 systems reviewed and were otherwise negative. Past Medical & Surgical Medical Problems: (1) Acute bronchitis (2) Acute bronchitis (3) Acute bronchitis (4) Asthma (5) Asthma, Unspecified (6) Bronchitis (7) Chest pain (8) Chest pain (9) COPD (chronic obstructive pulmonary disease) (10) COPD exacerbation (11) Diab Laverne Wo Compl, Type Ii Or Unspec Type, Not Uncntrld (12) Gastroparesis (13) Headache (14) Hyperlipidemia Nec/Nos (15) Hypertension Nos (16) Hyponatremia (17) Hyponatremia (18) Hypothyroidism Nos (19) Insulin dependent diabetes mellitus (20) Pneumonia (21) pneumonia/mild sepsis (22) pneumonia/mild sepsis (23) Stroke-like symptom (24) Subarachnoid bleed (25) Upper respiratory infection (26) URI (upper respiratory infection) Surgical Problems: (1) History of appendectomy Old medical records were reviewed. Nurse's notes were reviewed and I agree with. Family History Cancer Diabetes mellitus FH: heart disease FHx: lung disease Hypertension Social History Smoking Status: Former Smoker Alcohol Use: none Drug Use: none Marital Status: Housing Status: lives with family Occupation Status: disabled Current/Historical Medications Scheduled Amlodipine Besylate (Amlodipine Besylate), 10 MG PO QAM Atenolol (Atenolol), 1.5 TABS PO BID Atorvastatin (Atorvastatin Calcium), 40 MG PO HS Budesonide (Budesonide), 1 VIAL NEB PRN Budesonide (Pulmicort Respules 0.25MG/2ML), 2 ML INH UD Diclofenac Sodium (Topical) (Voltaren 1% Top Gel), 1 APPLN TOP UD Docusate Sodium (Docusate Sodium), 200 MG PO BID Fluticasone Prop/Salmeterol (Advair Diskus 250/50 60 Dose), 1 PUFF INH BID Folic Acid (Folvite), 1 MG PO BID Furosemide (Lasix), 40 MG PO QAM Vulfpxsjctf-Ijltdbvbfkn-Auk C- (Glucosamine Chondroitin), 1 TAB PO BID Insulin Glargine (Lantus), 33 UNITS SQ QAM Insulin Glargine (Lantus Solostar), 38 UNITS SC QPM Insulin Lispro (Human) (Humalog Kwikpen), UNITS SC BREAKFAST Insulin Lispro (Human) (Humalog Kwikpen), UNITS SC Q DINNER Insulin Lispro (Human) (Humalog Kwikpen), UNITS SC HS Levothyroxine Sodium (Synthroid), 150 MCG PO QAM Lorazepam (Ativan), 0.5 MG PO HS Magnesium Oxide (Mag-Ox), 400 MG PO BID Metoclopramide HCl (Metoclopramide HCl), 10 MG PO ACHS Nortriptyline Hcl (Pamelor), 50 MG PO QPM Pantoprazole (Protonix), 20 MG PO BID Probiotic Product (Probiotic), 1 TAB PO QAM Ranitidine (Zantac), 150 MG PO QID Riboflavin (B-2), 100 MG PO QID Sennosides-Docusate Sodium (Senokot S), 1-2 TAB PO BID Sodium Chloride (Sodium Chloride), 1 TAB PO BID Tamsulosin Hcl (Flomax), 0.4 MG PO HS [Tussigon], 1 TAB PO UD Scheduled PRN Acetaminophen (Tylenol), 650 MG PO Q6 PRN for Pain Albuterol Hfa (Ventolin Hfa), 1-2 PUFFS INH Q4 PRN for SOB/Wheezing Insulin Lispro (Human) (Humalog Kwikpen), UNITS SC LUNCH& SNACKS PRN for MEALS Ipratropium-Albuterol (Combivent Respimat), 1-2 PUFFS INH Q4-6HRS PRN for SOB/ Wheezing Levalbuterol Tartrate (Levalbuterol Tartrate Hfa), 1-2 PUFFS INH Q4 PRN for SOB/ Wheezing Mometasone Furoate (Nasal) (Mometasone Furoate), 2 SPRAYS NA DAILY PRN for SINUS CONGESTION Oxycodone/Acetaminophen 5MG/325MG (Percocet 5MG/325MG), 1-2 TABLETS PO Q4H PRN for Pain Simethicone (Gas-X Extra Strength), 250 MG PO UD PRN for Gas or Constipation Tramadol Hcl (Ultram), 50-100 MG PO Q4H PRN for Pain Allergies Coded Allergies: Lorazepam (Verified Adverse Reaction, Unknown, Hallucinations, 01/04/17) Reported by PT. Physical Exam Vital Signs Date Time Temp Pulse Resp B/P (MAP) Pulse Ox O2 Delivery O2 Flow Rate FiO2 05/10/17 17:59 36.6 71 18 152/74 95 05/10/17 17:17 71 18 152/74 05/10/17 15:40 77 05/10/17 14:22 36.6 84 17 119/65 95 Room Air Physical Exam General: Well developed well nourished non ill appearing middle aged male in no acute distress, breathing comfortably on room air. Normal speech HEENT: Baseline blindness. Normal cephalic atraumatic. Oropharynx is pink with moist mucous membranes. No swelling of the mouth lips or tongue. Neck: Supple with a midline trachea. No meningeal signs or stiffness, no JVD or bruits. No Stridor. Chest: Clear to auscultation bilaterally. No wheezes or rhonchi. No increased work of breathing. Heart: regular rate and rhythm. Abdomen: Soft nontender, nondistended without rebound guarding or rigidity. Extremities: No cyanosis or clubbing. Trace to 1+ pitting edema bilaterally right slightly greater than left. Spine/Back. Non tender to palpation. No CVA tenderness Skin: Good turgor without rashes. Neurologic exam: Cranial nerves two through 12 are intact. Motor and sensation are intact and symmetrical throughout. Medical Decision & Procedures ER Provider Diagnostic Interpretation: Radiology results as stated below per my review and radiologist interpretation: VENOUS DOPPLER LW EXT BILAT HISTORY: Pain. Edema. eval for DVT COMPARISON STUDY: None. FINDINGS: There is normal compressibility, flow, and augmentation within the bilateral lower extremity deep venous systems. IMPRESSION: No DVT within the right or left lower extremity. The above report was generated using voice recognition software. It may contain grammatical, syntax or spelling errors. Electronically signed by: Haroon Zuñiga M.D. 05/10/2017 5:21 PM Dictated Date/Time: 05/10/2017 5:20 PM CHEST ONE VIEW PORTABLE CLINICAL HISTORY: CHEST PAIN pain COMPARISON STUDY: 01/04/2017 FINDINGS: The bones soft tissues and hemidiaphragms are normal. The cardiomediastinal silhouette is normal. The lungs are clear. The pulmonary vasculature is normal. IMPRESSION: Negative chest. The above report was generated using voice recognition software. It may contain grammatical, syntax or spelling errors. Electronically signed by: Haroon Zuñiga M.D. 05/10/2017 3:42 PM Dictated Date/Time: 05/10/2017 3:42 PM Laboratory Results 05/10/17 15:30 Red Blood Count 4.05, Mean Corpuscular Volume 83.0, Mean Corpuscular Hemoglobin 27.2, Mean Corpuscular Hemoglobin Concent 32.7, Mean Platelet Volume 10.1, Neutrophils (%) (Auto) 53.3, Lymphocytes (%) (Auto) 34.0, Monocytes (%) (Auto) 9.2, Eosinophils (%) (Auto) 2.9, Basophils (%) (Auto) 0.4, Neutrophils # (Auto) 2.79, Lymphocytes # (Auto) 1.78, Monocytes # (Auto) 0.48, Eosinophils # (Auto) 0.15, Basophils # (Auto) 0.02 05/10/17 15:30 Test 05/10/17 15:10 05/10/17 15:30 05/10/17 15:40 05/10/17 17:49 Urine Color YELLOW Urine Appearance CLEAR (CLEAR) Urine pH 7.5 (4.5-7.5) Urine Specific [place] 1.008 (1.000-1.030) Urine Protein NEG (NEG) Urine Glucose (UA) TRACE (NEG) Urine Ketones NEG (NEG) Urine Occult Blood NEG (NEG) Urine Nitrite NEG (NEG) Urine Bilirubin NEG (NEG) Urine Urobilinogen NEG (NEG) Urine Leukocyte Esterase NEG (NEG) White Blood Count 5.23 K/uL (4.8-10.8) Red Blood Count 4.05 M/uL (4.7-6.1) Hemoglobin 11.0 g/dL (14.0-18.0) Hematocrit 33.6 % (42-52) Mean Corpuscular Volume 83.0 fL (80-100) Mean Corpuscular Hemoglobin 27.2 pg (25-34) Mean Corpuscular Hemoglobin Concent 32.7 g/dl (32-36) Platelet Count 279 K/uL (130-400) Mean Platelet Volume 10.1 fL (7.4-10.4) Neutrophils (%) (Auto) 53.3 % Lymphocytes (%) (Auto) 34.0 % Monocytes (%) (Auto) 9.2 % Eosinophils (%) (Auto) 2.9 % Basophils (%) (Auto) 0.4 % Neutrophils # (Auto) 2.79 K/uL (1.4-6.5) Lymphocytes # (Auto) 1.78 K/uL (1.2-3.4) Monocytes # (Auto) 0.48 K/uL (0.11-0.59) Eosinophils # (Auto) 0.15 K/uL (0-0.5) Basophils # (Auto) 0.02 K/uL (0-0.2) RDW Standard Deviation 43.7 fL (36.4-46.3) RDW Coefficient of Variation 14.4 % (11.5-14.5) Immature Granulocyte % (Auto) 0.2 % Immature Granulocyte # (Auto) 0.01 K/uL (0.00-0.02) Prothrombin Time 9.7 SECONDS (9.0-12.0) Prothromb Time International Ratio 0.9 (0.9-1.1) Activated Partial Thromboplast Time 25.9 SECONDS (21.0-31.0) Partial Thromboplastin Ratio 1.0 Anion Gap 5.0 mmol/L (3-11) Est Creatinine Clear Calc Drug Dose 79.5 ml/min Estimated GFR () 77.3 Estimated GFR (Non- 66.7 BUN/Creatinine Ratio 13.8 (10-20) Calcium Level 8.7 mg/dl (8.5-10.1) Total Bilirubin 0.2 mg/dl (0.2-1) Direct Bilirubin < 0.1 mg/dl (0-0.2) Aspartate Amino Transf (AST/SGOT) 24 U/L (15-37) Alanine Aminotransferase (ALT/SGPT) 27 U/L (12-78) Alkaline Phosphatase 101 U/L (45-117) Total Protein 7.9 gm/dl (6.4-8.2) Albumin 3.9 gm/dl (3.4-5.0) Lipase 69 U/L (73-393) Thyroid Stimulating Hormone (TSH) 11.400 uIu/ml (0.300-4.500) Bedside Troponin I < 0.030 ng/ml (0-0.045) BE-Vyh-Y-Type Natriuretic Peptide 23 pg/ml (0-900) Bedside Glucose 67 mg/dl (70-99) Laboratory studies as stated above per my review. ECG Indication: other (swelling to extremities) Rate (beats per minute): 76 Rhythm: normal sinus Findings: no acute ischemic change, no ectopy, other (normal intervals) Change: no significant change (compared to January 04 2017) ED Course 1501: Past medical records reviewed. The patient was evaluated in room B2, and a complete history and physical examination were performed. 1556: I reevaluated the patient and he is resting comfortably, and had blood work drawn. 1755: Upon reevaluation, the patient is feeling better. I discussed the results and treatment plan with him. He verbalized agreement of the treatment plan. The patient was discharged home. Medical Decision Differentials include, but are not limited to; peripheral edema, CHF, renal disease, DVT, electrolyte or metabolic abnormality. This patient comes in as described above. Placed in room B2. He is here for treatment and evaluation of lower extremity edema. This is been going on several months to a year. He has no other symptoms at present. He has had no shortness of breath, fall or trauma . He's had no fever or chills. No numbness or weakness. No chest pain or shortness of breath. IV access established and multiple blood testing was obtained . I Also did ultrasounds of his legs to rule out DVT. EKG and chest x-ray were also obtained. There is nothing to suggest acute coronary syndrome or arrhythmia. Troponin is also normal. Chest x-ray was clear and there is nothing to suggest congestive heart failure or at least left-sided heart failure. He has no acute electrolyte or metabolic abnormalities otherwise has normal kidney function. TSH was elevated as possible some of the edema and it could be related to hypothyroidism. Apparently they bumped up his thyroid dosage today and certainly that would not taken effect yet. Ultrasound of his legs were unremarkable and did not show any evidence of DVT and clinically he has good perfusion. I do not think his arterial related acutely. There is nothing to suggest acute diabetic problem. I do think he can go home and follow-up with his regular doctor. He may need further cardiac workup such as an echo. The patient and his were happy with the plan and he was discharged to home. Some of this may get better with the TSH correction with the thyroid dose medication increased. He was encouraged to return if: chest pain, worsening of symptoms, fever or chills, any new problems or concerns. Medication Reconcilliation Current Medication List: was personally reviewed by me Blood Pressure Screening Patient's blood pressure: Normal blood pressure Impression Primary Impression: Edema of lower extremity Additional Impression: Hypothyroidism Scribe Attestation The scribe's documentation has been prepared under my direction and personally reviewed by me in its entirety. I confirm that the note above accurately reflects all work, treatment, procedures, and medical decision making performed by me. Departure Information Dispostion Home / Self-Care Referrals Josh Squires III, CRNP (PCP) Forms HOME CARE DOCUMENTATION FORM, IMPORTANT VISIT INFORMATION, WORK / SCHOOL INSTRUCTIONS Patient Instructions My [facility] Additional Instructions Rest. Return if: Increasing pain or swelling, worsening symptoms, shortness breath, chest pain, fever chills, any new problems or concerns Follow-up with your doctor in 2-4 days for recheck. Problem Qualifiers Additional Impression: Hypothyroidism Hypothyroidism type: unspecified Qualified Codes: E03.9 - Hypothyroidism, unspecified
--- NOTE | 2017-05-10 15:43 | DIAGNOSTIC IMAGING REPORT ---
CHEST ONE VIEW PORTABLE CLINICAL HISTORY: CHEST PAIN pain COMPARISON STUDY: 01/04/2017 FINDINGS: The bones soft tissues and hemidiaphragms are normal. The cardiomediastinal silhouette is normal. The lungs are clear. The pulmonary vasculature is normal. IMPRESSION: Negative chest. The above report was generated using voice recognition software. It may contain grammatical, syntax or spelling errors. Electronically signed by: Haroon Zuñiga M.D. 05/10/2017 3:42 PM Dictated Date/Time: 05/10/2017 3:42 PM
[2017-05-10 15:48] LABS: BASO % 0.4 %; BASO ABS # 0.02 K/uL (0-0.2); COMPLETE YES; EOS % 2.9 %; HEMATOCRIT 33.6 % (42-52); IG% 0.2 %; LYMPH ABS # 1.78 K/uL (1.2-3.4); MEAN CORPUSCULAR HEMOGLOBIN 27.2 pg (25-34); MEAN CORPUSCULAR HGB CONC 32.7 g/dl (32-36); MEAN PLATELET VOLUME 10.1 fL (7.4-10.4); MONO % 9.2 %; NEUT % 53.3 %; PLATELET COUNT 279 K/uL (130-400); RED BLOOD COUNT 4.05 M/uL (4.7-6.1); WHITE BLOOD COUNT 5.23 K/uL (4.8-10.8)
[2017-05-10 15:58] LABS: INR 0.9 (0.9-1.1); PROTHROMBIN TIME (PATIENT) 9.7 SECONDS (9.0-12.0)
[2017-05-10 15:59] LABS: POINT OF CARE PRO-BNP 23 pg/ml (0-900); POINT OF CARE TROPONIN I < 0.030 ng/ml (0-0.045)
[2017-05-10 16:01] LABS: URINE APPEARANCE CLEAR (CLEAR); URINE BILIRUBIN NEG (NEG); URINE COLOR YELLOW; URINE NITRITE NEG (NEG); URINE PH 7.5 (4.5-7.5); URINE SPECIFIC GRAVITY 1.008 (1.000-1.030); UROBILINOGEN NEG (NEG)
[2017-05-10 16:10] LABS: ALT/SGPT 27 U/L (12-78); AST/SGOT 24 U/L (15-37); BLOOD UREA NITROGEN 17 mg/dl (7-18); BUN/CREATININE RATIO 13.8 (10-20); CALCIUM 8.7 mg/dl (8.5-10.1); CARBON DIOXIDE 32 mmol/L (21-32); CHLORIDE 98 mmol/L (98-107); GLUCOSE 150 mg/dl (70-99); POTASSIUM 4.2 mmol/L (3.5-5.1); SODIUM 135 mmol/L (136-145)
[2017-05-10 16:21] LABS: ALKALINE PHOSPHATASE 101 U/L (45-117)
[2017-05-10 16:27] LABS: MANUAL MICROSCOPIC REQUIRED? NO; REVIEW REQ? NO
--- NOTE | 2017-05-10 17:22 | DIAGNOSTIC IMAGING REPORT ---
VENOUS DOPPLER LW EXT BILAT HISTORY: Pain. Edema. eval for DVT COMPARISON STUDY: None. FINDINGS: There is normal compressibility, flow, and augmentation within the bilateral lower extremity deep venous systems. IMPRESSION: No DVT within the right or left lower extremity. The above report was generated using voice recognition software. It may contain grammatical, syntax or spelling errors. Electronically signed by: Haroon Zuñiga M.D. 05/10/2017 5:21 PM Dictated Date/Time: 05/10/2017 5:20 PM
[2017-05-10 17:59] VITALS: BP 152/74; PULSE 71; TEMP 36.6; O2SAT 95
== END 2017-05-10 18:00 | disposition home or self-care (01) ==
LOC: C.EDB 14:18
DX: R60.0 Localized edema (principal); E03.9 Hypothyroidism, unspecified; Z86.73 Personal history of transient ischemic attack (TIA), and cerebral infarction without residual deficits; J45.909 Unspecified asthma, uncomplicated; J44.9 Chronic obstructive pulmonary disease, unspecified; E11.9 Type 2 diabetes mellitus without complications; I10 Essential (primary) hypertension; E78.5 Hyperlipidemia, unspecified; Z87.01 Personal history of pneumonia (recurrent); Z87.891 Personal history of nicotine dependence; Z90.89 Acquired absence of other organs; Z83.3 Family history of diabetes mellitus; Z82.49 Family history of ischemic heart disease and other diseases of the circulatory system; Z79.4 Long term (current) use of insulin; Z79.899 Other long term (current) drug therapy

== ENCOUNTER → 2017-05-24 | Outpatient (CLI) | payer BC, OTHER ==
[~2017-05-24] MED LIST changes: +ALBINS/ INH; +BUDE1SUS6 INH; -LEVALBUTEROL INH; +LORA-741 PO; +PANT40TA PO; -[UNRECOGNIZED DRUG - OTHER] INH
--- NOTE | 2017-05-24 12:47 | MAMMOGRAPHY REPORT ---
MALE BILATERAL DIGITAL DIAGNOSTIC MAMMOGRAM WITH CAD AND TARGETED RIGHT ULTRASOUND: 05/24/2017 CLINICAL HISTORY: The patient reports a palpable lump and associated tenderness for approximately one week underneath the right nipple. The patient reports he is on multiple medications including dotty nolactone. TECHNIQUE: Current study was also evaluated with a Computer Aided Detection (CAD) system. Bilateral CC and MLO views were obtained. COMPARISON: No prior exams were available for comparison. BREAST COMPOSITION: The tissue of both breasts is predominantly fatty. FINDINGS: A triangle marker turpin the site of the palpable lump in the right subareolar breast. The re is flame-shaped fibroglandular tissue seen in the right subareolar breast, consistent with gynecom astia. A minimal amount of fibroglandular tissue is also seen within the left subareolar breast. Th ere are no suspicious masses, calcifications, or areas of architectural distortion noted in either br east. Targeted ultrasound was performed of the area of the palpable lump and pain pointed out by the patien t in the right subareolar breast. There is mixed echogenicity fibroglandular tissue within the right subareolar breast, consistent with gynecomastia. No suspicious masses or other suspicious sonograph ic abnormalities are evident. IMPRESSION: ACR BI-RADS CATEGORY 2: BENIGN, TARGETED ULTRASOUND ACR BI-RADS CATEGORY 2: BENIGN The tender palpable lump in the right subareolar breast corresponds with benign gynecomastia. There is no mammographic or targeted sonographic evidence of malignancy. Recommend clinical follow-up as t o a possible underlying cause. The patient and his were verbally notified of the results. Approximately 10% of breast cancers are not detected with mammography. A negative mammographic report should not delay biopsy if a clinically suggestive mass is present. Luciana Motley M.D. /:05/24/2017 10:09:17 Tennis Coach: Laine RAMÍREZ)(Bi), [facility] letter sent: Normal 1/2 BI-RADS Code: ACR BI-RADS Category 2: Benign Ultrasound BI-RADS: ACR BI-RADS Category 2: Benign
== END | disposition home or self-care (01) ==
LOC: C.MAMM 09:36
PROVIDERS: ATTEND Family Medicine
DX: N62 Hypertrophy of breast (principal)

== ENCOUNTER 2017-06-18 21:17 | Observation (INO) | payer BC, OTHER ==
[~2017-06-18] VITALS: Ht 175.3 cm; Wt 95.1 kg
[~2017-06-18 21:17] MED LIST changes: -ALBINS/ INH; -BUDE1SUS6 INH; -PANT40TA PO
[2017-06-18] MEDS ORDERED: GI COCKTAIL PO STA (21:51)
[2017-06-18] MEDS ORDERED: ALBINS/ INH (21:51)
[2017-06-18] MEDS ORDERED: BUDE1SUS6 INH (21:55)
[2017-06-18] MEDS ORDERED: LIDOCAINE HCL 2% VISC SOLN 20 ML UDC ONE (22:08)
[2017-06-18] MEDS ORDERED: PANT40TA PO (22:08)
[2017-06-18] MEDS ORDERED: ALUMINUM/MAGNESIUM SUSP 30 ML UDC ONE (22:08)
[2017-06-18 22:09] LABS: BASO % 0.5 %; BASO ABS # 0.03 K/uL (0-0.2); COMPLETE YES; HEMATOCRIT 34.9 % (42-52); IG% 0.2 %; LYMPH % 34.4 %; LYMPH ABS # 2.08 K/uL (1.2-3.4); MEAN CELL VOLUME 82.3 fL (80-100); MEAN CORPUSCULAR HEMOGLOBIN 27.6 pg (25-34); MEAN CORPUSCULAR HGB CONC 33.5 g/dl (32-36); MEAN PLATELET VOLUME 10.3 fL (7.4-10.4); MONO % 7.4 %; NEUT % 55.5 %; PLATELET COUNT 338 K/uL (130-400); RED BLOOD COUNT 4.24 M/uL (4.7-6.1); WHITE BLOOD COUNT 6.05 K/uL (4.8-10.8)
--- NOTE | 2017-06-18 22:24 | DIAGNOSTIC IMAGING REPORT ---
CHEST ONE VIEW PORTABLE CLINICAL HISTORY: Chest pain. COMPARISON STUDY: Chest radiograph May 10, 2017. FINDINGS: Lung volumes are normal. There is no pneumothorax or pleural effusion. There is no evidence of pulmonary edema. No consolidation to suggest pneumonia is present. A gas-filled structure within the left upper quadrant likely reflects gaseous distention of the stomach. IMPRESSION: 1. No acute cardiopulmonary findings. 2. Prominent gas-filled structure within the left upper quadrant. This likely reflects gaseous distention of the stomach. A distended colonic loop could appear similar although is considered less likely. Electronically signed by: Bear Early M.D. 06/18/2017 10:23 PM Dictated Date/Time: 06/18/2017 10:21 PM
[2017-06-18 22:30] LABS: BUN/CREATININE RATIO 12.5 (10-20); CREATININE 1.2 mg/dl (0.60-1.40); POTASSIUM 4.3 mmol/L (3.5-5.1)
[2017-06-18 22:34] LABS: CKMB/CK RATIO 1.6 (0-3.0)
[2017-06-18] MEDS ORDERED: ONDANSETRON INJ 2 MG/ML 2 ML VIAL IV STA (22:36)
[2017-06-18] MEDS ORDERED: SODIUM CHLORIDE 0.9% 1000ML 1,000 ML IV STA (22:36)
[2017-06-18] MEDS ORDERED: MoRPHine SULFATE 4 MG/ML 1 ML CARP\\VIAL IV STA (23:27)
[2017-06-18 23:59] LABS: INR 0.9 (0.9-1.1); PROTHROMBIN TIME (PATIENT) 9.9 SECONDS (9.0-12.0)
[2017-06-19] VITALS (8 sets, daily range): BP systolic 135–197; BP diastolic 76–81; PULSE 90–100; TEMP 36.9–37; O2SAT 95–97; Ht 175.3 cm; Wt 95.1 kg
[2017-06-19] MEDS ORDERED: ALUMINUM/MAGNESIUM/SIMETH (MAALOX MAX) 30 ML UDC PO PRN (00:30)
[2017-06-19] MEDS ORDERED: ACETAMINOPHEN 325 MG TAB PO PRN (00:30)
[2017-06-19] MEDS ORDERED: MoRPHine SULFATE 2 MG/ML CARP IV PRN (00:30)
[2017-06-19] MEDS ORDERED: POLYETHYLENE (MIRALAX) 17 GM PACK PO PRN (00:30)
[2017-06-19] MEDS ORDERED: MAGNESIUM HYDROXIDE SUSP 30 ML UDC PO PRN (00:30)
[2017-06-19] MEDS ORDERED: ALBUTEROL 0.083% NEBU SOLN 3 ML VIAL INH PRN (00:30)
[2017-06-19] MEDS ORDERED: ONDANSETRON INJ 2 MG/ML 2 ML VIAL IV PRN (00:30)
--- NOTE | 2017-06-19 01:21 | History and Physical ---
History & Physical Date & Time of Service: Jun 19, 2017 at 00:57 Chief Complaint: Chest Pain Possbile Lee Primary Care Physician: Josh Squirse III, CRNP History of Present Illness Source: patient 56 y/o M Hx DM 1, multiple spontaneous subarachnoid hemorrhages, HTN, HPL, COPD , SIADH. Pt developed central CP accompanied by SOB. Denies N/V, diaphoresis or light-headedness. He gained relief with administration of NTG. Past Medical/Surgical History Medical Problems: (1) Acute bronchitis Status: Resolved (2) Acute bronchitis Status: Resolved (3) Acute bronchitis Status: Resolved (4) Asthma Status: Chronic (5) Asthma, Unspecified Status: Chronic (6) Bronchitis Status: Resolved (7) Chest pain Status: Resolved (8) Chest pain Status: Resolved (9) COPD (chronic obstructive pulmonary disease) Status: Chronic (10) COPD exacerbation Status: Resolved (11) Diab Laverne Wo Compl, Type Ii Or Unspec Type, Not Uncntrld Status: Chronic (12) Gastroparesis Status: Chronic (13) Headache Status: Resolved (14) Hyperlipidemia Nec/Nos Status: Chronic (15) Hypertension Nos Status: Chronic (16) Hyponatremia Status: Resolved (17) Hypothyroidism Nos Status: Chronic (18) Insulin dependent diabetes mellitus Status: Chronic (19) Pneumonia Status: Resolved (20) Subarachnoid bleed Status: Resolved - Pt had a large bleed 2013 - A CT revealed 2-3 additional small bleeds at the time which the pt was not aware of - resolved without intervention (21) Upper respiratory infection Status: Resolved (22) URI (upper respiratory infection) Status: Resolved Surgical Problems: (1) History of appendectomy Status: Resolved Family History Cancer Diabetes mellitus FH: heart disease FHx: lung disease Hypertension Social History Quit smoking in 2008 - does not drink Smoking Status: Former Smoker Drug Use: none Marital Status: Housing status: lives with family Occupational Status: disabled Immunizations History of Influenza Vaccine: Yes Influenza Vaccine Date: Aug 03, 2010 History of Tetanus Vaccine?: Yes History of Pneumococcal: Unknown Pneumococcal Date: Jun 30, 2004 History of Hepatitis B Vaccine: Unknown Multi-Drug Resistant Organisms History of MDRO: No Allergies Coded Allergies: Lisinopril (Verified Allergy, Severe, " TONGUE SWELLS", 06/18/17) Lorazepam (Verified Adverse Reaction, Unknown, Hallucinations, 01/04/17) Reported by PT. Home Medications Scheduled Amlodipine Besylate (Amlodipine Besylate), 10 MG PO QAM Atenolol (Atenolol), 1.5 TABS PO BID Atorvastatin (Atorvastatin Calcium), 40 MG PO HS Budesonide (Pulmicort Respules 0.25MG/2ML), 2 ML INH UD Budesonide (Inhalation) (Budesonide), 2 ML INH PRN Diclofenac Sodium (Topical) (Voltaren 1% Top Gel), 1 APPLN TOP UD Docusate Sodium (Docusate Sodium), 200 MG PO BID Fluticasone Prop/Salmeterol (Advair Diskus 250/50 60 Dose), 1 PUFF INH BID Folic Acid (Folvite), 1 MG PO BID Furosemide (Lasix), 40 MG PO QAM Yztlackquqe-Uyhynmslcea-Jtt C- (Glucosamine Chondroitin), 1 TAB PO BID Insulin Glargine (Lantus), 28 UNITS SQ QAM Insulin Glargine (Lantus Solostar), 35 UNITS SC QPM Insulin Lispro (Human) (Humalog Kwikpen), UNITS SC BREAKFAST Insulin Lispro (Human) (Humalog Kwikpen), UNITS SC Q DINNER Insulin Lispro (Human) (Humalog Kwikpen), UNITS SC HS Levothyroxine Sodium (Synthroid), 150 MCG PO QAM Lorazepam (Ativan), 0.5 MG PO HS Magnesium Oxide (Mag-Ox), 400 MG PO BID Metoclopramide HCl (Metoclopramide HCl), 10 MG PO ACHS Nortriptyline Hcl (Pamelor), 50 MG PO QPM Pantoprazole (Protonix), 40 MG PO BID Probiotic Product (Probiotic), 1 TAB PO QAM Ranitidine (Zantac), 150 MG PO QID Riboflavin (B-2), 100 MG PO QID Sodium Chloride (Sodium Chloride), 1 TAB PO BID Tamsulosin Hcl (Flomax), 0.4 MG PO HS [Tussigon], 1 TAB PO UD Scheduled PRN Acetaminophen (Tylenol), 650 MG PO Q6 PRN for Pain Albuterol Hfa (Ventolin Hfa), 1-2 PUFFS INH Q4 PRN for SOB/Wheezing Albuterol Sulf (Proventil 0.083% 2.5MG/3ML), 2.5 MG INH QID PRN for SOB/Wheezing Insulin Lispro (Human) (Humalog Kwikpen), UNITS SC LUNCH& SNACKS PRN for MEALS Ipratropium-Albuterol (Combivent Respimat), 1-2 PUFFS INH Q4-6HRS PRN for SOB/ Wheezing Levalbuterol Tartrate (Levalbuterol Tartrate Hfa), 1-2 PUFFS INH Q4 PRN for SOB/ Wheezing Mometasone Furoate (Nasal) (Mometasone Furoate), 2 SPRAYS NA DAILY PRN for SINUS CONGESTION Oxycodone/Acetaminophen 5MG/325MG (Percocet 5MG/325MG), 1-2 TABLETS PO Q4H PRN for Pain Simethicone (Gas-X Extra Strength), 250 MG PO UD PRN for Gas or Constipation Tramadol Hcl (Ultram), 50-100 MG PO Q4H PRN for Pain Review of Systems Constitutional: No fever, No chills, No sweats Eyes: No worsening of vision ENT: No hearing loss, No unusual epistaxis, No nasal symptoms Respiratory: No cough, No sputum, No wheezing Cardiovascular: No chest pain Abdomen: No pain, No nausea Musculoskeletal: No joint pain Genitourinary - Male: No hematuria, No dysuria Neurologic: + problem reported (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), No memory loss , No paralysis Psychiatric: No depression symptoms Endocrine: No fatigue Hematologic / Lymphatic: No abnormal bleeding/bruising Integumentary: No rash Physical Exam Vital Signs Date Time Temp Pulse Resp B/P (MAP) Pulse Ox O2 Delivery O2 Flow Rate FiO2 06/18/17 22:16 97 Room Air 06/18/17 21:40 104 06/18/17 21:28 36.8 110 16 157/89 97 Room Air General Appearance: WD/WN, no apparent distress Head: normocephalic, atraumatic Eyes: + pertinent finding (B/L corneal opaities - pt ) ENT: normal ENT inspection, TMs normal Neck: supple, no adenopathy, thyroid normal, no JVD Respiratory/Chest: chest non-tender, lungs clear, normal breath sounds, no respiratory distress, no accessory muscle use Cardiovascular: regular rate, rhythm, no edema, no gallop, no JVD, no murmur Abdomen/GI: normal bowel sounds, non tender, soft Back: normal inspection, no CVA tenderness, no muscle spasm, normal range of motion Extremities/Musculoskelatal: normal inspection, no calf tenderness, normal capillary refill, no pedal edema, normal range of motion 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, no motor/sensory deficits, alert, normal mood/affect Skin: normal color, warm/dry, no rash Diagnostics Laboratory Results Results Past 24 Hours Test 06/18/17 21:45 06/18/17 22:11 06/18/17 23:01 06/18/17 23:49 Range/Units White Blood Count 6.05 4.8-10.8 K/uL Red Blood Count 4.24 4.7-6.1 M/uL Hemoglobin 11.7 14.0-18.0 g/dL Hematocrit 34.9 42-52 % Mean Corpuscular Volume 82.3 80-100 fL Mean Corpuscular Hemoglobin 27.6 25-34 pg Mean Corpuscular Hemoglobin Concent 33.5 32-36 g/dl Platelet Count 338 130-400 K/uL Mean Platelet Volume 10.3 7.4-10.4 fL Neutrophils (%) (Auto) 55.5 % Lymphocytes (%) (Auto) 34.4 % Monocytes (%) (Auto) 7.4 % Eosinophils (%) (Auto) 2.0 % Basophils (%) (Auto) 0.5 % Neutrophils # (Auto) 3.36 1.4-6.5 K/uL Lymphocytes # (Auto) 2.08 1.2-3.4 K/uL Monocytes # (Auto) 0.45 0.11-0.59 K/uL Eosinophils # (Auto) 0.12 0-0.5 K/uL Basophils # (Auto) 0.03 0-0.2 K/uL RDW Standard Deviation 44.6 36.4-46.3 fL RDW Coefficient of Variation 14.8 11.5-14.5 % Immature Granulocyte % (Auto) 0.2 % Immature Granulocyte # (Auto) 0.01 0.00-0.02 K/uL Sodium Level 132 136-145 mmol/L Potassium Level 4.3 3.5-5.1 mmol/L Chloride Level 99 98-107 mmol/L Carbon Dioxide Level 24 21-32 mmol/L Anion Gap 9.0 3-11 mmol/L Blood Urea Nitrogen 15 7-18 mg/dl Creatinine 1.20 0.60-1.40 mg/dl Est Creatinine Clear Calc Drug Dose 77.9 ml/min Estimated GFR () 77.3 Estimated GFR (Non- 66.7 BUN/Creatinine Ratio 12.5 10-20 Random Glucose 297 70-99 mg/dl Calcium Level 9.0 8.5-10.1 mg/dl Total Bilirubin 0.3 0.2-1 mg/dl Aspartate Amino Transf (AST/SGOT) 18 15-37 U/L Alanine Aminotransferase (ALT/SGPT) 26 12-78 U/L Alkaline Phosphatase 102 45-117 U/L Total Creatine Kinase 184 39-308 U/L Creatine Kinase MB 2.9 0.5-3.6 ng/ml Creatine Kinase MB Ratio 1.6 0-3.0 Total Protein 7.9 6.4-8.2 gm/dl Albumin 4.0 3.4-5.0 gm/dl Globulin 3.9 2.5-4.0 gm/dl Albumin/Globulin Ratio 1.0 0.9-2 Bedside Troponin I < 0.030 < 0.030 0-0.045 ng/ml Prothrombin Time 9.9 9.0-12.0 SECONDS Prothromb Time International Ratio 0.9 0.9-1.1 Activated Partial Thromboplast Time 24.8 21.0-31.0 SECONDS Partial Thromboplastin Ratio 1.0 D-Dimer 260 0-500 ug/L FEU Normal EKG Impression Assessment and Plan 56 y/o M Hx DM 1, multiple spontaneous subarachnoid hemorrhages, HTN, HPL, COPD , SIADH. Pt developed central CP accompanied by SOB. Denies N/V, diaphoresis or light-headedness. He gained relief with administration of NTG. 1) CP - The pt does not take ASA or other antiplatelet agents as he was told to avoid these following his ICH. As there is no clear evidence of ACS on EKG or labs, we will avoid any anticoagulation at present. He would benefit from stress testing as his last test was in 1999 and he is high risk. This could likely be done in the outpt setting barring symptom recurrence or a pos trop. Provided with a Statin and a Bblocker. 2) DM - poorly controlled - placed on Lantus and a SS 3) COPD - no evidence of acute exacerbation - cont inhalers as prescribed 4) History of spontaneous ICH - avoid anticoagulants if possible 5) SIADH - cont sodium tablets Ful code - SCDs Total time for this admit including review of labs, meds, EKG, records - discussion with pt and ER attending - 38 min Level of Care Telemetry Resuscitation Status FULL RESUSCITATION VTE Prophylaxis VTE Risk Assessment Done? Y/N: Yes Risk Level: High Given or contraindicated: SCD's
--- NOTE | 2017-06-19 02:12 | EMERGENCY ROOM VISIT NOTE ---
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 Denies vomiting. Patient states that pain started right after eating spaghetti for dinner. No hx of cardiac issues. History of Present Illness The patient is a 56 year old male who presents to the Emergency Room with complaints of chest pain which began approximately 3 hours prior to arrival. The patient states that tonight after eating a dinner of spaghetti and garlic sauce, he developed pain in his upper abdomen and the center of his chest. He describes the pain as a pressure and burning sensation. He states that the initial pain intensity was 6/10. He took Rolaids, Tums and Phenergan without relief. He took Mylanta, which improved his pain from 6/10 to 2/10. He reports associated shortness of breath and nausea without vomiting. He denies any radiation of the pain. The patient does state that his blood pressure has been elevated recently and his heart rate has been elevated today. He is a type I diabetic. He is a former smoker. He denies any cardiac history or family history of cardiac disease. He reports a history of a spontaneous subarachnoid hemorrhage and states he has had 4 TIAs. He does not take any anticoagulants. He states that he has had a stress test and other cardiac testing done in the past, which has been normal. He reports a history of hypertension and hyperlipidemia. Review of Systems A complete 10 point review of systems was reviewed with the patient with pertinent positives and negatives as per history of present illness. All else were negative. Past Medical/Surgical History Medical Problems: (1) Acute bronchitis (2) Acute bronchitis (3) Acute bronchitis (4) Asthma (5) Asthma, Unspecified (6) Bronchitis (7) Chest pain (8) Chest pain (9) COPD (chronic obstructive pulmonary disease) (10) COPD exacerbation (11) Diab Laverne Wo Compl, Type Ii Or Unspec Type, Not Uncntrld (12) Gastroparesis (13) Headache (14) Hyperlipidemia Nec/Nos (15) Hypertension Nos (16) Hyponatremia (17) Hyponatremia (18) Hypothyroidism Nos (19) Insulin dependent diabetes mellitus (20) Pneumonia (21) pneumonia/mild sepsis (22) pneumonia/mild sepsis (23) Stroke-like symptom (24) Subarachnoid bleed (25) Upper respiratory infection (26) URI (upper respiratory infection) Surgical Problems: (1) History of appendectomy Family History Cancer Diabetes mellitus FH: heart disease FHx: lung disease Hypertension Social History Smoking Status: Former Smoker Alcohol Use: none Drug Use: none Marital Status: Housing Status: lives with family Occupation Status: disabled Current/Historical Medications Scheduled Amlodipine Besylate (Amlodipine Besylate), 10 MG PO QAM Atenolol (Atenolol), 1.5 TABS PO BID Atorvastatin (Atorvastatin Calcium), 40 MG PO HS Budesonide (Pulmicort Respules 0.25MG/2ML), 2 ML INH UD Budesonide (Inhalation) (Budesonide), 2 ML INH PRN Diclofenac Sodium (Topical) (Voltaren 1% Top Gel), 1 APPLN TOP UD Docusate Sodium (Docusate Sodium), 200 MG PO BID Fluticasone Prop/Salmeterol (Advair Diskus 250/50 60 Dose), 1 PUFF INH BID Folic Acid (Folvite), 1 MG PO BID Furosemide (Lasix), 40 MG PO QAM Dubdmwoeqza-Kbhihrxesbg-Dfb C- (Glucosamine Chondroitin), 1 TAB PO BID Insulin Glargine (Lantus), 28 UNITS SQ QAM Insulin Glargine (Lantus Solostar), 35 UNITS SC QPM Insulin Lispro (Human) (Humalog Kwikpen), UNITS SC BREAKFAST Insulin Lispro (Human) (Humalog Kwikpen), UNITS SC Q DINNER Insulin Lispro (Human) (Humalog Kwikpen), UNITS SC HS Levothyroxine Sodium (Synthroid), 150 MCG PO QAM Lorazepam (Ativan), 0.5 MG PO HS Magnesium Oxide (Mag-Ox), 400 MG PO BID Metoclopramide HCl (Metoclopramide HCl), 10 MG PO ACHS Nortriptyline Hcl (Pamelor), 50 MG PO QPM Pantoprazole (Protonix), 40 MG PO BID Probiotic Product (Probiotic), 1 TAB PO QAM Ranitidine (Zantac), 150 MG PO QID Riboflavin (B-2), 100 MG PO QID Sodium Chloride (Sodium Chloride), 1 TAB PO BID Tamsulosin Hcl (Flomax), 0.4 MG PO HS [Tussigon], 1 TAB PO UD Scheduled PRN Acetaminophen (Tylenol), 650 MG PO Q6 PRN for Pain Albuterol Hfa (Ventolin Hfa), 1-2 PUFFS INH Q4 PRN for SOB/Wheezing Albuterol Sulf (Proventil 0.083% 2.5MG/3ML), 2.5 MG INH QID PRN for SOB/Wheezing Insulin Lispro (Human) (Humalog Kwikpen), UNITS SC LUNCH& SNACKS PRN for MEALS Ipratropium-Albuterol (Combivent Respimat), 1-2 PUFFS INH Q4-6HRS PRN for SOB/ Wheezing Levalbuterol Tartrate (Levalbuterol Tartrate Hfa), 1-2 PUFFS INH Q4 PRN for SOB/ Wheezing Mometasone Furoate (Nasal) (Mometasone Furoate), 2 SPRAYS NA DAILY PRN for SINUS CONGESTION Oxycodone/Acetaminophen 5MG/325MG (Percocet 5MG/325MG), 1-2 TABLETS PO Q4H PRN for Pain Simethicone (Gas-X Extra Strength), 250 MG PO UD PRN for Gas or Constipation Tramadol Hcl (Ultram), 50-100 MG PO Q4H PRN for Pain Physical Exam Vital Signs Date Time Temp Pulse Resp B/P (MAP) Pulse Ox O2 Delivery O2 Flow Rate FiO2 06/18/17 23:47 90 19 97 06/18/17 23:17 95 17 96 06/18/17 23:01 175/84 06/18/17 22:47 105 17 95 06/18/17 22:31 172/80 06/18/17 22:17 104 19 96 06/18/17 22:16 97 Room Air 06/18/17 22:01 171/81 06/18/17 21:47 105 16 97 06/18/17 21:40 104 06/18/17 21:38 161/88 06/18/17 21:28 36.8 110 16 157/89 97 Room Air Pain Rating (0-10): 2.0 Physical Exam VITALS: Vitals are noted on the nurse's note and reviewed by myself. Vital signs stable. GENERAL: This is a 56-year-old male, in no acute distress, nondiaphoretic, well- developed well-nourished. HEART: Regular rate and rhythm without murmurs gallops or rubs. LUNGS: Clear to auscultation bilaterally without wheezes, rales or rhonchi. ABDOMEN: Positive bowel sounds x 4. Soft, patient reports mild discomfort with palpation of the epigastric region. No guarding or rebound tenderness. NEURO: Patient was alert and oriented to person place and time. Medical Decision & Procedures ER Provider Diagnostic Interpretation: CHEST ONE VIEW PORTABLE FINDINGS: Lung volumes are normal. There is no pneumothorax or pleural effusion. There is no evidence of pulmonary edema. No consolidation to suggest pneumonia is present. A gas-filled structure within the left upper quadrant likely reflects gaseous distention of the stomach. IMPRESSION: 1. No acute cardiopulmonary findings. 2. Prominent gas-filled structure within the left upper quadrant. This likely reflects gaseous distention of the stomach. A distended colonic loop could appear similar although is considered less likely. Laboratory Results 06/18/17 21:45 Red Blood Count 4.24, Mean Corpuscular Volume 82.3, Mean Corpuscular Hemoglobin 27.6, Mean Corpuscular Hemoglobin Concent 33.5, Mean Platelet Volume 10.3, Neutrophils (%) (Auto) 55.5, Lymphocytes (%) (Auto) 34.4, Monocytes (%) (Auto) 7.4, Eosinophils (%) (Auto) 2.0, Basophils (%) (Auto) 0.5, Neutrophils # (Auto) 3.36, Lymphocytes # (Auto) 2.08, Monocytes # (Auto) 0.45, Eosinophils # (Auto) 0.12, Basophils # (Auto) 0.03 06/18/17 21:45 Test 06/18/17 21:45 06/18/17 23:01 06/18/17 23:49 White Blood Count 6.05 K/uL (4.8-10.8) Red Blood Count 4.24 M/uL (4.7-6.1) Hemoglobin 11.7 g/dL (14.0-18.0) Hematocrit 34.9 % (42-52) Mean Corpuscular Volume 82.3 fL (80-100) Mean Corpuscular Hemoglobin 27.6 pg (25-34) Mean Corpuscular Hemoglobin Concent 33.5 g/dl (32-36) Platelet Count 338 K/uL (130-400) Mean Platelet Volume 10.3 fL (7.4-10.4) Neutrophils (%) (Auto) 55.5 % Lymphocytes (%) (Auto) 34.4 % Monocytes (%) (Auto) 7.4 % Eosinophils (%) (Auto) 2.0 % Basophils (%) (Auto) 0.5 % Neutrophils # (Auto) 3.36 K/uL (1.4-6.5) Lymphocytes # (Auto) 2.08 K/uL (1.2-3.4) Monocytes # (Auto) 0.45 K/uL (0.11-0.59) Eosinophils # (Auto) 0.12 K/uL (0-0.5) Basophils # (Auto) 0.03 K/uL (0-0.2) RDW Standard Deviation 44.6 fL (36.4-46.3) RDW Coefficient of Variation 14.8 % (11.5-14.5) Immature Granulocyte % (Auto) 0.2 % Immature Granulocyte # (Auto) 0.01 K/uL (0.00-0.02) Anion Gap 9.0 mmol/L (3-11) Est Creatinine Clear Calc Drug Dose 77.9 ml/min Estimated GFR () 77.3 Estimated GFR (Non- 66.7 BUN/Creatinine Ratio 12.5 (10-20) Calcium Level 9.0 mg/dl (8.5-10.1) Total Bilirubin 0.3 mg/dl (0.2-1) Aspartate Amino Transf (AST/SGOT) 18 U/L (15-37) Alanine Aminotransferase (ALT/SGPT) 26 U/L (12-78) Alkaline Phosphatase 102 U/L (45-117) Total Creatine Kinase 184 U/L (39-308) Creatine Kinase MB 2.9 ng/ml (0.5-3.6) Creatine Kinase MB Ratio 1.6 (0-3.0) Total Protein 7.9 gm/dl (6.4-8.2) Albumin 4.0 gm/dl (3.4-5.0) Globulin 3.9 gm/dl (2.5-4.0) Albumin/Globulin Ratio 1.0 (0.9-2) Prothrombin Time 9.9 SECONDS (9.0-12.0) Prothromb Time International Ratio 0.9 (0.9-1.1) Activated Partial Thromboplast Time 24.8 SECONDS (21.0-31.0) Partial Thromboplastin Ratio 1.0 D-Dimer 260 ug/L FEU (0-500) Bedside Troponin I < 0.030 ng/ml (0-0.045) Medications Administered Medications (Trade) Dose Ordered Sig/Shantel Route Start Time Stop Time Status Last Admin Dose Admin Lidocaine HCl (Viscous Lidocaine 2% Soln) 20 ml STK-MED ONCE .ROUTE 06/18/17 22:08 06/18/17 22:09 DC 06/18/17 22:10 20 ML Al Hydroxide/Mg Hydroxide (Maalox Susp) 30 ml STK-MED ONCE .ROUTE 06/18/17 22:08 06/18/17 22:09 DC 06/18/17 22:10 30 ML Ondansetron HCl (Zofran Inj) 4 mg NOW STAT IV 06/18/17 22:36 06/18/17 22:38 DC 06/18/17 22:56 4 MG Sodium Chloride 1,000 ml @ 999 mls/hr Q1H1M STAT IV 06/18/17 22:36 06/18/17 23:36 DC 06/18/17 22:56 999 MLS/HR Morphine Sulfate (MoRPHine SULFATE INJ) 4 mg NOW STAT IV 06/18/17 23:27 06/18/17 23:28 DC 06/18/17 23:32 4 MG ECG Rate (beats per minute): 102 Rhythm: sinus tachycardia Findings: no acute ischemic change, no ectopy Change: no significant change ED Course The patient was evaluated as above. Labs were drawn and IV access was obtained. Patient was medicated with a GI cocktail. Patient was reevaluated and is complaining of a headache at this time. 4 mg morphine and 4 mg Zofran were ordered. Findings were discussed with the patient at this time. He agrees to admission. Case was discussed with the [facility] hospitalist, Dr. Flanagan. They agreed to evaluate the patient for admission. Medical Decision Differential diagnosis includes acute coronary syndrome, pulmonary embolism, pneumothorax, pericarditis, myocarditis, endocarditis, anxiety, musculoskeletal pain, GERD, costochondritis, pneumonia, among others. The patient is a 56-year-old male who presents today complaining of central chest pain. Labs are unremarkable. Initial troponin was not elevated. EKG showed a sinus tachycardia with no ischemic changes. D-dimer was not elevated. Patient is relatively high risk given history of diabetes. He will likely require further testing to rule out cardiac disease. He was [facility] to the [facility] Hospitalist service for further workup. Medication Reconcilliation Current Medication List: was personally reviewed by dc Blood Pressure Screening Patient's blood pressure: Elevated blood pressure (will be followed by hospitalist) Impression Primary Impression: Substernal precordial chest pain Departure Information Referrals Josh Squires III, CRNP (PCP) Patient Instructions My [facility]
[2017-06-19] MEDS: INSULIN ASPART 100 UNITS/ML 3 ML PEN SC SCH ×3 (02:53→13:33)
[2017-06-19] MEDS ORDERED: DEXTROSE 50% 50 ML SYR IV PRN (03:00)
[2017-06-19] MEDS ORDERED: GLUCOSE 40% GEL 15 GM TUBE PO PRN (03:00)
[2017-06-19] MEDS ORDERED: GLUCOSE 10 TABS/TUBE PO PRN (03:00)
[2017-06-19] MEDS ORDERED: IV FLUIDS COMPLETED PRN (03:00)
[2017-06-19] MEDS ORDERED: INSULIN GLARGINE SOLOSTAR 100 UNITS/ML 3 ML PEN SC SCH (03:00)
[2017-06-19] MEDS ORDERED: GLUCAGON FOR INJ 1 MG VIAL SQ PRN (03:00)
[2017-06-19] MEDS: METOCLOPRAMIDE HCL 10 MG TAB PO SCH ×2 (06:18→13:31)
[2017-06-19] MEDS ORDERED: LEVOTHYROXINE 150 MCG TAB PO SCH (06:30)
[2017-06-19] MEDS: RANITIDINE HCL 150 MG TAB PO SCH ×2 (08:57→13:29)
[2017-06-19] MEDS ORDERED: DOCUSATE SODIUM 100 MG CAP PO SCH (09:00)
[2017-06-19] MEDS ORDERED: AMLODIPINE BESYLATE 5 MG TAB PO SCH (09:00)
[2017-06-19] MEDS ORDERED: PANTOprazole SOD 40 MG TAB PO SCH (09:00)
[2017-06-19] MEDS ORDERED: FUROSEMIDE 20 MG TAB PO SCH (09:00)
[2017-06-19] MEDS ORDERED: MAGNESIUM OXIDE 400 MG TAB PO SCH (09:00)
[2017-06-19] MEDS ORDERED: FLUTICASONE/SALMETEROL 250/50 (ADVAIR) 14 PUFF/1 INHALER INH SCH (09:00)
[2017-06-19] MEDS ORDERED: SODIUM CHLORIDE 1 GM TAB PO SCH (09:00)
[2017-06-19] MEDS: OXYCODONE/ACETAMINOPHEN 5-325 TAB PO PRN ×2 (10:11→14:23)
[2017-06-19] MEDS ORDERED: INSULIN GLARGINE SOLOSTAR 100 UNITS/ML 3 ML PEN SQ SCH (11:00)
--- NOTE | 2017-06-19 15:45 | Cardiology Consultation ---
Cardiology Consultation Date of Consultation: Jun 19, 2017. Requesting Physician: Tone Reason for Consultation: Chest Pain History of Present Illness The patient is a 56-year-old gentleman with an extensive past medical history to include type 1 diabetes mellitus, blindness, peripheral vascular disease, kidney disease, ensure cerebral hemorrhage and COPD who presented to [facility] after an extended episode of burning in the epigastric area. Patient states that he ate spaghetti with garlic for dinner and shortly thereafter developed a burning sensation in the epigastrium. The symptoms were fairly prolonged in nature. He did take some antacids at home which provided some attenuation in his symptoms. However, given his history his felt best to be evaluated at the medical center. His symptoms had nearly resolved by the time of his evaluation in the emergency room. He was reportedly given nitroglycerin with some improvement in his symptoms as well. Patient does not recall taking that medication however. He has not had any recurrent symptoms of this nature since admission. He denies symptoms of this nature in the past. He does have some gastrointestinal complaints to include of frequent bloating and distention. He has a history of gastro paresis. He occasionally has nausea for which she takes Phenergan. He has not had any recent nausea or vomiting. In general he is a very sedentary individual who is limited by his blindness, breathing difficulty and claudication. He is able to ambulate around his residence. He does have stairs at home and recently he has been quite dyspneic with ascending stairs. He also has worsening claudication in the legs. He apparently has a treadmill which she uses on occasion and he can do very little activity currently without developing calf pain. This occurs primarily on the right side. He has no symptoms of chest discomfort or chest pressure. He is not aware of any palpitations. He does occasionally have some dizziness but this appears to be exclusively related to changes in position. A common scenario be arising from bed at night or after an extended period of sitting. He has not suffered syncope. He has also been concern lately about some elevated heart rates. He takes his blood pressure frequently and has noted the heart rates near 100 recently. His usual baseline would be in the 80s. Past Medical/Surgical History Diabetes mellitus type 1 benign prostatic hypertrophy gastroparesis blindness hypertension intercerebral hemorrhage chronic headaches hyperlipidemia hypothyroidism Peripheral artery disease Obstructive sleep apnea Past surgical history Appendectomy Trigger finger release Hernia repair Perianal abscess Tonsillectomy Trans urethral resection of the prostate Family History Cancer Diabetes mellitus FH: heart disease FHx: lung disease Hypertension Noncontributory Social History Smoking Status: Former Smoker History of Alcohol Use: No Currently lives locally with his Review of Systems Constitutional: + see HPI Respiratory: + cough Cardiac: + see HPI Abdomen: + see HPI Male : + see HPI Neurologic: + see HPI Heme: + see HPI Endo: + see HPI Skin: + see HPI Chronic daily headache. All Other Systems: Reviewed and Negative Allergies Coded Allergies: Lisinopril (Verified Allergy, Severe, " TONGUE SWELLS", 06/18/17) Lorazepam (Verified Adverse Reaction, Unknown, Hallucinations, 01/04/17) Reported by PT. Medications Current Inpatient Medications Medications (Trade) Dose Ordered Sig/Shantel Route Start Time Stop Time Status Last Admin Dose Admin Albuterol Sulfate (Ventolin 0.083% 2.5MG/3ML Neb) 2.5 mg Q4H PRN INH 06/19/17 00:30 07/19/17 00:29 Amlodipine Besylate (Norvasc Tab) 10 mg QAM PO 06/19/17 09:00 07/19/17 08:59 06/19/17 14:23 10 MG Atenolol (Tenormin Tab) 37.5 mg BID PO 06/19/17 09:00 07/19/17 08:59 06/19/17 14:24 37.5 MG Atorvastatin Calcium (Lipitor Tab) 40 mg HS PO 06/19/17 21:00 07/19/17 20:59 Docusate Sodium (coLACE CAP) 200 mg BID PO 06/19/17 09:00 07/19/17 08:59 Salmeterol Xinafoate/ Fluticasone (Advair Diskus 250/50 Inh) 1 puff BID INH 06/19/17 09:00 07/19/17 08:59 06/19/17 08:57 1 PUFF Folic Acid (Folvite Tab) 1 mg BID PO 06/19/17 09:00 07/19/17 08:59 06/19/17 08:55 1 MG Furosemide (Lasix Tab) 40 mg QAM PO 06/19/17 09:00 07/19/17 08:59 06/19/17 08:55 40 MG Insulin Glargine (Lantus Solostar Pen) 35 units QPM SC 06/19/17 03:00 07/19/17 02:59 06/19/17 02:53 35 UNITS Insulin Glargine (Lantus Solostar Pen) 28 units QAM SQ 06/19/17 11:00 07/19/17 10:59 06/19/17 13:34 28 UNITS Levothyroxine Sodium (Synthroid Tab) 150 mcg DAILYBB PO 06/19/17 06:30 07/19/17 06:29 06/19/17 06:18 150 MCG Lorazepam (Ativan Tab) 0.5 mg HS PO 06/19/17 21:00 07/19/17 20:59 Magnesium Oxide (Mag-Ox Tab) 400 mg BID PO 06/19/17 09:00 07/19/17 08:59 06/19/17 08:55 400 MG Metoclopramide HCl (Reglan Tab) 10 mg ACHS PO 06/19/17 06:30 07/19/17 06:59 06/19/17 13:31 10 MG Nortriptyline HCl (Pamelor Cap) 50 mg QPM PO 06/19/17 21:00 07/19/17 20:59 Oxycodone/ Acetaminophen (Percocet 5-325mg Tab) 1 tab Q4H PRN PO 06/19/17 00:30 07/03/17 00:29 06/19/17 14:23 1 TAB Pantoprazole Sodium (Protonix Tab) 40 mg BID PO 06/19/17 09:00 07/19/17 08:59 06/19/17 08:54 40 MG Ranitidine HCl (zANTac TAB) 150 mg QID PO 06/19/17 09:00 07/19/17 08:59 06/19/17 13:29 150 MG Sodium Chloride (Sodium Chloride Tab) 1 gm BID PO 06/19/17 09:00 07/19/17 08:59 06/19/17 08:54 1 GM Tamsulosin HCl (Flomax Cap) 0.4 mg HS PO 06/19/17 21:00 07/19/17 20:59 Acetaminophen (Tylenol Tab) 650 mg Q4H PRN PO 06/19/17 00:30 07/19/17 00:29 Al Hydrox/Mg Hydrox/Simethicone (Maalox Max Susp) 15 ml Q4H PRN PO 06/19/17 00:30 07/19/17 00:29 Magnesium Hydroxide (Milk Of Magnesia Susp) 30 ml Q12H PRN PO 06/19/17 00:30 07/19/17 00:29 Ondansetron HCl (Zofran Inj) 4 mg Q6H PRN IV 06/19/17 00:30 07/19/17 00:29 Morphine Sulfate (MoRPHine SULFATE INJ) 2 mg Q30M PRN IV 06/19/17 00:30 07/03/17 00:29 Polyethylene (Miralax Powder Packet) 17 gm DAILY PRN PO 06/19/17 00:30 07/19/17 00:29 Insulin Aspart (novoLOG ASPART) SLIDING SCALE G... ACHS SC 06/19/17 03:00 07/19/17 02:59 06/19/17 13:33 2 UNITS Glucose (Glucose 40% Gel) 15-30 GRAMS 15 GRAMS... UD PRN PO 06/19/17 03:00 07/19/17 02:59 Glucose (Glucose Chew Tab) 4-8 Tablets 4 Tabl... UD PRN PO 06/19/17 03:00 07/19/17 02:59 Dextrose (Dextrose 50% 50ML Syringe) 25-50ML OF 50% DW IV FOR... UD PRN IV 06/19/17 03:00 07/19/17 02:59 Glucagon (Glucagon Inj) 1 mg UD PRN SQ 06/19/17 03:00 07/19/17 02:59 Miscellaneous (Iv Fluids Completed) 1 ea PRN PRN N/A 06/19/17 03:00 06/19/18 02:59 Physical Exam Vital Signs Past 12 Hours Date Time Temp Pulse Resp B/P (MAP) Pulse Ox O2 Delivery O2 Flow Rate FiO2 06/19/17 15:13 36.9 90 18 135/79 (97) 95 Room Air 06/19/17 14:25 100 20 158/78 (104) 06/19/17 12:07 Room Air 06/19/17 11:34 37.0 93 18 151/76 (101) 97 Room Air 06/19/17 10:19 94 164/78 (106) 97 Room Air 96 178/80 (112) 06/19/17 08:00 Room Air 06/19/17 07:23 36.9 98 18 161/81 (107) 95 Room Air 06/19/17 06:19 98 180/78 (112) 06/19/17 04:00 Room Air The patient is alert and oriented. Mood and affect appeared normal. He answered all questions appropriately. HEENT: The sclerae are anicteric. Blind Neuro: Cranial nerves intact Neck: Patient's neck is supple. He has palpable carotid pulses bilaterally without bruits on auscultation. There is no evidence of jugular venous distention. The thyroid is not enlarged. Lungs: Clear to auscultation bilaterally. He has good air movement without use of accessory muscles. No rales wheezes or rhonchi. Cardiac: Heart demonstrates a regular rate and rhythm. Normal S1 and S2. No murmurs on examination. Pulses: The patient has palpable radial pulses bilaterally that are equal in intensity' the dorsalis pedis and posterior tibial pulses were not palpable bilaterally Extremities: There was no evidence of hypoperfusion. There is no cyanosis or clubbing. There is no edema. Skin: I did not appreciate any rashes on examination today. Data Laboratory Results: Last 24 Hours Test 06/18/17 21:45 06/18/17 22:11 06/18/17 23:01 06/18/17 23:49 White Blood Count 6.05 K/uL Red Blood Count 4.24 M/uL Hemoglobin 11.7 g/dL Hematocrit 34.9 % Mean Corpuscular Volume 82.3 fL Mean Corpuscular Hemoglobin 27.6 pg Mean Corpuscular Hemoglobin Concent 33.5 g/dl Platelet Count 338 K/uL Mean Platelet Volume 10.3 fL Neutrophils (%) (Auto) 55.5 % Lymphocytes (%) (Auto) 34.4 % Monocytes (%) (Auto) 7.4 % Eosinophils (%) (Auto) 2.0 % Basophils (%) (Auto) 0.5 % Neutrophils # (Auto) 3.36 K/uL Lymphocytes # (Auto) 2.08 K/uL Monocytes # (Auto) 0.45 K/uL Eosinophils # (Auto) 0.12 K/uL Basophils # (Auto) 0.03 K/uL RDW Standard Deviation 44.6 fL RDW Coefficient of Variation 14.8 % Immature Granulocyte % (Auto) 0.2 % Immature Granulocyte # (Auto) 0.01 K/uL Sodium Level 132 mmol/L Potassium Level 4.3 mmol/L Chloride Level 99 mmol/L Carbon Dioxide Level 24 mmol/L Anion Gap 9.0 mmol/L Blood Urea Nitrogen 15 mg/dl Creatinine 1.20 mg/dl Est Creatinine Clear Calc Drug Dose 77.9 ml/min Estimated GFR () 77.3 Estimated GFR (Non- 66.7 BUN/Creatinine Ratio 12.5 Random Glucose 297 mg/dl Calcium Level 9.0 mg/dl Total Bilirubin 0.3 mg/dl Aspartate Amino Transf (AST/SGOT) 18 U/L Alanine Aminotransferase (ALT/SGPT) 26 U/L Alkaline Phosphatase 102 U/L Total Creatine Kinase 184 U/L Creatine Kinase MB 2.9 ng/ml Creatine Kinase MB Ratio 1.6 Total Protein 7.9 gm/dl Albumin 4.0 gm/dl Globulin 3.9 gm/dl Albumin/Globulin Ratio 1.0 Bedside Troponin I < 0.030 ng/ml < 0.030 ng/ml Prothrombin Time 9.9 SECONDS Prothromb Time International Ratio 0.9 Activated Partial Thromboplast Time 24.8 SECONDS Partial Thromboplastin Ratio 1.0 D-Dimer 260 ug/L FEU Test 06/19/17 00:58 06/19/17 02:00 06/19/17 02:36 06/19/17 07:49 Bedside Glucose 278 mg/dl 317 mg/dl 257 mg/dl Troponin I < 0.015 ng/ml Test 06/19/17 08:00 06/19/17 11:44 Troponin I < 0.015 ng/ml Bedside Glucose 214 mg/dl Imaging: Chest x-ray did demonstrate some air in the stomach. No acute cardiopulmonary process EKG: Normal sinus rhythm. No evidence of ST or T-wave changes Telemetry reviewed: Sinus rhythm and sinus tachycardia. No additional arrhythmias Echocardiogram performed in July 28, 2016 demonstrated preserved LV systolic function without evidence of valvular heart disease. Assessment & Plan 1. Chest pain: The patient extended period of epigastric burning without any elevation in cardiac biomarkers. I think this can be discounted as noncardiac chest pain. He has an extensive history of gastrointestinal problems including gastroparesis and his symptoms were relieved with Mylanta. While he undoubtedly has an element of occult coronary disease, I do not think the symptoms described or anginal in nature. 2. Vascular disease: Patient does have an element of peripheral vascular disease and associated claudication. He has had evaluation in the past he was placed on medical therapy. Given progression of symptoms would be reasonable consider re-evaluation. 3. Coronary artery disease: The patient is not formally diagnosed with coronary artery disease given his comorbidities and presence of peripheral vascular disease he undoubtedly has an element of coronary disease. At this point in evaluation would be warranted in the setting of symptoms or reduced LV systolic function. He currently has no symptoms of angina and is more limited by his pulmonary and peripheral vascular disease. In the past he has had preserved LV systolic function. I think at this point a re-evaluation his LV function would be reasonable. Should it be notably decreased then an evaluation for coronary disease would be of value. At this point aggressive secondary prevention of peripheral vascular disease will also provide benefits in the setting of coronary disease and will be the mainstay of therapy. Patient has been restricted from using aspirin anti-platelet agents given his history of intracranial hemorrhage. This would also have her any efforts at percutaneous intervention and once again make an evaluation for occult coronary disease less attractive. 4. Tachycardia: Patient has a sinus tachycardia at times. He is not appear to be intravascular depleted or overloaded. He is not in overt pain. There was some concern regarding his thyroid state in this may in fact be contributing to a mild tachycardia.
--- NOTE | 2017-06-19 16:44 | Discharge Instructions ---
Discharge Instructions Date of Service Jun 19, 2017. Admission Reason for Admission: Chest Pain Discharge Discharge Diagnosis / Problem: chest pain, ACS ruled out Discharge Goals Goal(s): Decrease discomfort Activity Recommendations Activity Limitations: resume your previous activity . Instructions / Follow-Up Instructions / Follow-Up needs to see PCP to follow up on synthroid dose rapid heart rate could be due to high synthroid dose will need TSH as an out patient Current Hospital Diet Patient's current hospital diet: AHA Diet (Heart Healthy), Diabetes Type 1 Diet Discharge Diet Recommended Diet: AHA Diet (Heart Healthy), Diabetes Type 1 Diet Pending Studies Studies pending at discharge: no Medical Emergencies . Who to Call and When: Medical Emergencies: If at any time you feel your situation is an emergency, please call 911 immediately. . Non-Emergent Contact Non-Emergency issues call your: Primary Care Provider, [facility] Call Non-Emergent contact if: temperature is above 100.5, your pain is not controlled, your pain is worsening . . "Provider Documentation" section prepared by Christopher Desir. . VTE Core Measure Inpt VTE Proph given/why not?: SCD's
--- NOTE | 2017-06-19 20:17 | Discharge Summary ---
Discharge Summary Date of Service Jun 19, 2017. Discharge Summary Admission Date: Jun 19, 2017 at 00:30 Discharge Date: Jun 19, 2017 Discharge Disposition: Home Principal Diagnosis: chest pain, possible musculoskeletal Problems/Secondary Diagnoses: Intracranial hemorrhage,HTN, HPL, COPD, SIADH Immunizations: Have You Had Influenza Vaccine: Yes Influenza Vaccine Date: Aug 03, 2010 History of Tetanus Vaccine?: Yes History of Pneumococcal: Unknown Pneumococcal Date: Jun 30, 2004 History of Hepatitis B Vaccine: Unknown Medication Reconciliation Continued Medications: Acetaminophen (Tylenol) 325 Mg Tab 650 MG PO Q6 PRN for Pain, TAB Albuterol Hfa (Ventolin Hfa) 200 Puffs/95957 Mcg Aers 1-2 PUFFS INH Q4 PRN for SOB/Wheezing, #1 INHALER Albuterol Sulf (Proventil 0.083% 2.5MG/3ML) 2.5 Mg/3 Ml Nebu 2.5 MG INH QID PRN for SOB/Wheezing, EA Amlodipine Besylate (Amlodipine Besylate) 5 Mg Tab 10 MG PO QAM Atenolol (Atenolol) 25 Mg Tab 1.5 TABS PO BID Atorvastatin (Atorvastatin Calcium) 40 Mg Tab 40 MG PO HS Budesonide (Pulmicort Respules 0.25MG/2ML) 0.25 Mg/2 Ml Nebu 2 ML INH UD, EA Budesonide (Inhalation) (Budesonide) 1 Mg/2 Ml Lillian 2 ML INH PRN Diclofenac Sodium (Topical) (Voltaren 1% Top Gel) 1 % Gel 1 APPLN TOP UD Docusate Sodium (Docusate Sodium) 100 Mg Cap 200 MG PO BID Fluticasone Prop/Salmeterol (Advair Diskus 250/50 60 Dose) 1 Ea Aerp 1 PUFF INH BID, INHALER Folic Acid (Folvite) 1 Mg Tab 1 MG PO BID, TAB Furosemide (Lasix) 20 Mg Tab 40 MG PO QAM, TAB Hzjwdkdxglp-Tlfraluwezs-Wft C- (Glucosamine Chondroitin) 1 Tab Tab 1 TAB PO BID Insulin Glargine (Lantus) 100 Unit/Ml Inj 28 UNITS SQ QAM Insulin Glargine (Lantus Solostar) 100 Unit/Ml Inj 35 UNITS SC QPM, PEN Insulin Lispro (Human) (Humalog Kwikpen) 100 Unit/Ml Inj UNITS SC BREAKFAST COVERAGE 1 UNIT HUMALO CARBS Insulin Lispro (Human) (Humalog Kwikpen) 100 Unit/Ml Inj UNITS SC Q DINNER COVERAGE: 1:7 RATIO Insulin Lispro (Human) (Humalog Kwikpen) 100 Unit/Ml Inj UNITS SC LUNCH& SNACKS PRN for MEALS CARB COVERAGE WITH LUNCH & SNACKS 1:7, GOAL 150 Insulin Lispro (Human) (Humalog Kwikpen) 100 Unit/Ml Inj UNITS SC HS COVERAGE 1: 7 RATIO Ipratropium-Albuterol (Combivent Respimat) 1 Aer Aer 1-2 PUFFS INH Q4-6HRS PRN for SOB/Wheezing Levalbuterol Tartrate (Levalbuterol Tartrate Hfa) 45 Mcg/Act Aer 1-2 PUFFS INH Q4 PRN for SOB/Wheezing, #15 Levothyroxine Sodium (Synthroid) 150 Mcg Tab 150 MCG PO QAM, TAB Lorazepam (Ativan) 0.5 Mg Tab 0.5 MG PO HS, TAB Magnesium Oxide (Mag-Ox) 400 Mg Tab 400 MG PO BID Metoclopramide HCl (Metoclopramide HCl) 10 Mg Tab 10 MG PO ACHS Mometasone Furoate (Nasal) (Mometasone Furoate) 50 Mcg/Act Spr 2 SPRAYS NA DAILY PRN for SINUS CONGESTION Nortriptyline Hcl (Pamelor) 25 Mg Cap 50 MG PO QPM TAKE 3-4 HOURS BEFORE BEDTIME Oxycodone/Acetaminophen 5MG/325MG (Percocet 5MG/325MG) Tab 1-2 TABLETS PO Q4H PRN for Pain, TAB PAIN Pantoprazole (Protonix) 40 Mg Tab 40 MG PO BID Probiotic Product (Probiotic) 1 Cap Cap 1 TAB PO QAM Ranitidine (Zantac) 150 Mg Tab 150 MG PO QID Riboflavin (B-2) 100 Mg Tab 100 MG PO QID Simethicone (Gas-X Extra Strength) 125 Mg Chw 250 MG PO UD PRN for Gas or Constipation Sodium Chloride (Sodium Chloride) 1 Gm Tab 1 TAB PO BID Tamsulosin Hcl (Flomax) 0.4 Mg Cap 0.4 MG PO HS, CAP Tramadol Hcl (Ultram) 50 Mg Tab 50-100 MG PO Q4H PRN for Pain [Tussigon] () 1 TAB PO UD Referrals At Discharge Follow up Referrals: [facility] Referral - Within 1-2 Weeks with Jasen Larkin MD Discharge Exam Review of Systems: Constitutional: No fever, No chills, No sweats, No weight loss, No weakness , No fatigue, No problem reported Eyes: + worsening of vision (Blind), No eye pain, No discharge, No problem reported ENT: No hearing loss, No unusual epistaxis, No nasal symptoms, No sore throat, No tinnitus, No dental problems, No trouble swallowing, No problem reported Respiratory: No cough, No sputum, No wheezing, No shortness of breath, No dyspnea on exertion, No dyspnea at rest, No hemoptysis, No problem reported Cardiovascular: No chest pain, No orthopnea, No PND, No edema, No claudication, No palpitations, No problem reported Abdomen: No pain, No nausea, No vomiting, No diarrhea, No constipation, No GI bleeding, No problem reported Musculoskeletal: No joint pain, No muscle pain, No swelling, No calf pain, No problem reported Genitourinary - Male: No hematuria, No dysuria, No urinary frequency, No urinary urgency, No urinary hesitancy, No urinary retention, No urinary incontinence, No penile discharge, No lesions, No impotence, No problem reported Neurologic: No memory loss, No paralysis, No weakness, No numbness/tingling , No vertigo, No balance problems, No problem reported Psychiatric: No depression symptoms, No anhedonism, No anxiety, No insomnia , No substance abuse, No problem reported Endocrine: No fatigue, No excessive thirst, No excessive urination, No problem reported Hematologic / Lymphatic: No abnormal bleeding/bruising, No clotting problems , No swollen lymph nodes, No night sweats, No problem reported Integumentary: No rash, No itch, No new/changing skin lesions, No color change, No bleeding, No problem reported Physical Exam: General Appearance: WD/WN Eyes: + pertinent finding (blind in both eyes) ENT: normal ENT inspection, hearing grossly normal Neck: supple Respiratory/Chest: chest non-tender, lungs clear, normal breath sounds, no respiratory distress, no accessory muscle use Cardiovascular: regular rate, rhythm, no edema, no gallop, no JVD, no murmur , normal peripheral pulses Abdomen / GI: normal bowel sounds, non tender, soft, no organomegaly, no pulsatile mass, normal rectal exam Extremities: normal inspection, no calf tenderness, normal capillary refill , no pedal edema Neurologic/Psychiatric: cook vacuum kettle II-XII nml as tested, no motor/sensory deficits , alert, normal mood/affect, normal reflexes, oriented x 3 Skin: normal color, warm/dry, no rash Hospital Course 56 year old man with past medical history of type 1 diabetes mellitus started when he was 2 years old, patient also 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 Also has history of previous spontaneous subarachnoid hemorrhage. Thus patient is not on any aspirin or Plavix. Presented with chest pain that resolved spontaneously, cardiac enzymes remained stable. Seen by certified dialysis technician who recommended an outpatient 2-D echo, likely chest pain source was not cardiac in origin. Pain was slightly atypical and patient gave history of hiatal hernia. Patient will be discharged and follow-up with the certified dialysis technician as an outpatient for 2-D echo. He his statin and beta waylon was restarted Currently chest pain-free Total Time Spent: Greater than 30 minutes This includes examination of the patient, discharge planning, medication reconciliation, and communication with other providers. Discharge Instructions Please refer to the electronic Patient Visit Report (Discharge Instructions) for additional information.
[2017-06-19] MEDS ORDERED: NORTRIPTYLINE HCL 25 MG CAP PO SCH (21:00)
[2017-06-19] MEDS ORDERED: LORAZEPAM 0.5 MG TAB PO SCH (21:00)
[2017-06-19] MEDS ORDERED: ATORVASTATIN 40 MG TAB PO SCH (21:00)
[2017-06-19] MEDS ORDERED: TAMSULOSIN HCL 0.4 MG CAP PO SCH (21:00)
== END 2017-06-19 17:30 | disposition home or self-care (01) ==
LOC: C.EDB 21:18 → C.MED 06-19 00:30 → EDBEDREQ 06-19 00:55 → ENRESERV 06-19 01:28
PROVIDERS: ADMIT Internal Medicine; ATTEND Internal Medicine
DX: R07.2 Precordial pain (principal); I10 Essential (primary) hypertension; J44.9 Chronic obstructive pulmonary disease, unspecified; E10.9 Type 1 diabetes mellitus without complications; R00.0 Tachycardia, unspecified; I25.10 Atherosclerotic heart disease of native coronary artery without angina pectoris; E78.5 Hyperlipidemia, unspecified; I73.9 Peripheral vascular disease, unspecified; H54.0 Blindness, both eyes; N40.0 Benign prostatic hyperplasia without lower urinary tract symptoms; Z83.3 Family history of diabetes mellitus; Z82.49 Family history of ischemic heart disease and other diseases of the circulatory system; G47.33 Obstructive sleep apnea (adult) (pediatric); K44.9 Diaphragmatic hernia without obstruction or gangrene; Z83.6 Family history of other diseases of the respiratory system; Z87.891 Personal history of nicotine dependence; Z90.89 Acquired absence of other organs; Z86.39 Personal history of other endocrine, nutritional and metabolic disease; Z86.73 Personal history of transient ischemic attack (TIA), and cerebral infarction without residual deficits

== ENCOUNTER → 2017-06-29 | Outpatient (CLI) | payer BC, OTHER ==
[~2017-06-29] MED LIST changes: +ALBINS/ INH; +BUDE1SUS6 INH; +PANT40TA PO; -PLMINS NEB; -PRT/20 PO; -SENN-65 PO
--- NOTE | 2017-06-29 13:47 | DIAGNOSTIC IMAGING REPORT ---
ART DOP LOWER EXT BILAT HISTORY: 56 years-old Male I73.9 PAD (peripheral artery disease)[id number] follow-up study to assess peripheral arterial disease. COMPARISON: None available. TECHNIQUE: Multiple real-time sonographic images of the bilateral lower extremity arterial structures were obtained assessing grayscale appearance, color and spectral analysis. YURIDIA's were also obtained. FINDINGS: YURIDIA: RIGHT: Dorsalis pedis artery, 0.92; posterior tibial artery: 0.90 LEFT: Dorsalis pedis artery, 0.91; posterior tibial artery: 1.07 RIGHT: Triphasic waveforms are seen within the common femoral artery to the mid superficial femoral artery. Monophasic blunted waveforms are present within the distal aspect of the superficial femoral artery, popliteal, dorsalis pedis, peroneal and anterior tibial arteries. Peak systolic velocity within the mid superficial femoral artery is measured at 392 cm/s. Moderate to extensive areas of atherosclerotic plaquing are noted. LEFT: Biphasic waveforms are seen within the common femoral artery to the distal aspect of the superficial femoral artery. Monophasic blunted waveforms extend from the popliteal artery to the posterior tibial, anterior tibial, peroneal and dorsalis pedis arteries. Peak systolic velocity within the mid superficial femoral artery is recorded at 272 cm/s. Moderate to extensive atherosclerotic plaquing. IMPRESSION: 1. Bilateral atherosclerotic vascular disease results in blunted monophasic waveforms within multiple vascular distributions as described above. 2. Elevated peak systolic velocities within the mid aspects of the bilateral superficial femoral arteries are compatible with associated inflow disease. 3. YURIDIA's as above. The above report was generated using voice recognition software. It may contain grammatical, syntax or spelling errors. Electronically signed by: Jaiden Arenas M.D. 06/29/2017 1:46 PM Dictated Date/Time: 06/29/2017 1:37 PM
== END | disposition home or self-care (01) ==
LOC: C.ULTR 11:39
PROVIDERS: ATTEND Family Medicine Adult Medicine
DX: I73.9 Peripheral vascular disease, unspecified (principal)

== ENCOUNTER → 2017-07-25 | Outpatient (CLI) | payer BC, OTHER ==
[2017-07-25 11:17] LABS: CHOLESTEROL/HDL RATIO 2.9
[2017-07-25 11:20] LABS: THYROID STIMULATING HORMONE 4.82 uIu/ml (0.300-4.500)
== END | disposition home or self-care (01) ==
LOC: C.LABBC 07:34
PROVIDERS: ATTEND Nurse Practitioner Family
DX: E10.65 Type 1 diabetes mellitus with hyperglycemia (principal); E03.9 Hypothyroidism, unspecified

== ENCOUNTER 2017-09-23 22:24 | Emergency (ER) | payer BC, OTHER ==
[~2017-09-23] VITALS: Ht 175.3 cm; Wt 101.9 kg
[2017-09-23 22:27] VITALS: TEMP 36.5; Ht 175.3 cm; Wt 101.9 kg
[2017-09-23] MEDS ORDERED: MoRPHine SULFATE 4 MG/ML 1 ML CARP\\VIAL IV STA (22:36)
[2017-09-23] MEDS ORDERED: ONDANSETRON INJ 2 MG/ML 2 ML VIAL IV STA (22:36)
[2017-09-23] MEDS ORDERED: OPTIRAY 320 IV PRN (22:45)
--- NOTE | 2017-09-23 22:47 | EMERGENCY ROOM VISIT NOTE ---
History Report prepared by Mary Ann: Blaise Junior Under the Supervision of: Dr. Alfonso Salazar D.O. First contact with patient: 22:31 Chief Complaint: STROKE SYMPTOMS Stated Complaint: SEVERE HEADACHE HX OF STROKE History of Present Illness The patient is a 57 year old male who presents to the Emergency Room with complaints of a constant and "terrific" headache that began this evening at 2000 , 2.5 hours prior to arrival. The patient rates his current pain as a 9/10 in severity. He states that his pain is localized across his forehead, as well as across the top of his head. The patient had a subarachnoid hemorrhage 3 years ago. The hemorrhage stopped spontaneously without surgical intervention. He claims that he has headaches every day, but they are usually a 5/10 in severity. He takes Percocet and/or Tramadol daily for these headaches. The patient claims that the location and severity of his headache today feels similar to his stroke episode. The patient is completely blind. He denies any unusual neck pain. 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 A total of ten systems were reviewed and were otherwise negative. Past Medical & Surgical Medical Problems: (1) Acute bronchitis (2) Acute bronchitis (3) Acute bronchitis (4) Asthma (5) Asthma, Unspecified (6) Bronchitis (7) Chest pain (8) Chest pain (9) COPD (chronic obstructive pulmonary disease) (10) COPD exacerbation (11) Diab Laverne Wo Compl, Type Ii Or Unspec Type, Not Uncntrld (12) Gastroparesis (13) Headache (14) Hyperlipidemia Nec/Nos (15) Hypertension Nos (16) Hyponatremia (17) Hyponatremia (18) Hypothyroidism Nos (19) Insulin dependent diabetes mellitus (20) Pneumonia (21) pneumonia/mild sepsis (22) pneumonia/mild sepsis (23) Stroke-like symptom (24) Subarachnoid bleed (25) Upper respiratory infection (26) URI (upper respiratory infection) Surgical Problems: (1) History of appendectomy Family History Cancer Diabetes mellitus FH: heart disease FHx: lung disease Hypertension Social History Smoking Status: Former Smoker Alcohol Use: none Drug Use: none Marital Status: Housing Status: lives with family Occupation Status: disabled Current/Historical Medications Scheduled Amlodipine Besylate (Norvasc), 10 MG PO QAM Atenolol (Atenolol), 50 MG PO BID Atorvastatin (Atorvastatin Calcium), 40 MG PO HS Budesonide (Inhalation) (Budesonide), 2 ML INH PRN Diclofenac Sodium (Topical) (Voltaren 1% Top Gel), 1 APPLN TOP UD Docusate Sodium (Docusate Sodium), 200 MG PO BID Fluticasone Prop/Salmeterol (Advair Diskus 250/50 60 Dose), 1 PUFF INH BID Folic Acid (Folvite), 1 MG PO BID Furosemide (Lasix), 80 MG PO QAM Xwycexwpqzz-Ekpfbehfnyo-Wjj C- (Glucosamine Chondroitin), 1 TAB PO BID Insulin Glargine (Lantus), 36 UNITS SQ QAM Insulin Glargine (Lantus Solostar), 38 UNITS SC QPM Insulin Lispro (Human) (Humalog Kwikpen), UNITS SC ACHS Levothyroxine Sodium (Synthroid), 150 MCG PO QAM Magnesium Oxide (Mag-Ox), 400 MG PO BID Metoclopramide HCl (Metoclopramide HCl), 10 MG PO ACHS Nortriptyline Hcl (Pamelor), 50 MG PO QPM Pantoprazole (Protonix), 40 MG PO BID Probiotic Product (Probiotic), 1 TAB PO QAM Ranitidine Hcl (Zantac), 300 MG PO BID Riboflavin (B-2), 100 MG PO QID Senna (Senokot), 1 TAB PO BID Sodium Chloride (Sodium Chloride), 1 TAB PO BID Spironolactone (Aldactone), 25 MG PO QAM Tamsulosin Hcl (Flomax), 0.4 MG PO HS Scheduled PRN Acetaminophen (Tylenol), 650 MG PO Q6 PRN for Pain Albuterol Sulfate (Proair Respiclick), 1-2 PUFFS INH Q4H PRN for SOB/Wheezing Albuterol Sulfate (Proventil Hfa), 2 PUFFS INH DIRECTED PRN for SOB/Wheezing Budesonide (Pulmicort Respules 0.25MG/2ML), 2 ML INH UD PRN for SOB/Wheezing Ipratropium-Albuterol (Combivent Respimat), 1-2 PUFFS INH Q4-6HRS PRN for SOB/ Wheezing Levalbuterol Tartrate (Levalbuterol Tartrate Hfa), 1-2 PUFFS INH Q4 PRN for SOB/ Wheezing Lorazepam (Ativan), 0.5 MG PO HS PRN for PRN Mometasone Furoate (Nasal) (Mometasone Furoate), 2 SPRAYS NA DAILY PRN for SINUS CONGESTION Oxycodone/Acetaminophen 5MG/325MG (Percocet 5MG/325MG), 1-2 TABLETS PO Q4H PRN for Pain Simethicone (Gas-X Extra Strength), 250 MG PO UD PRN for Gas or Constipation Tramadol Hcl (Ultram), 50-100 MG PO Q4H PRN for Pain [Tussigon], 1 TAB PO UD PRN for Cough Allergies Coded Allergies: Lisinopril (Verified Allergy, Severe, " TONGUE SWELLS", 09/23/17) Lorazepam (Verified Adverse Reaction, Unknown, Hallucinations, 09/23/17) Reported by PT. Physical Exam Vital Signs Date Time Temp Pulse Resp B/P (MAP) Pulse Ox O2 Delivery O2 Flow Rate FiO2 09/24/17 00:58 74 18 145/69 96 Room Air 09/23/17 23:04 98 Room Air 09/23/17 22:27 36.5 83 18 164/72 99 Room Air Physical Exam GENERAL: Awake, alert, well-appearing, in no distress HENT: Normocephalic, atraumatic. Oropharynx unremarkable. EYES: Bilaterally opacified corneas. No reflex, no response. NECK: Supple. No nuchal rigidity. FROM. No JVD. RESPIRATORY: Clear to auscultation. CARDIAC: Regular rate, normal rhythm. Extremities warm and well perfused. Pulses equal. ABDOMEN: Soft, non-distended. No tenderness to palpation. No rebound or guarding. No masses. MUSCULOSKELETAL: Chest examination reveals no tenderness. The back is symmetrical on inspection without obvious abnormality. There is no CVA tenderness to palpation. No joint edema. LOWER EXTREMITIES: Calves are equal size bilaterally and non-tender. No edema. No discoloration. NEURO: Normal sensorium. No sensory or motor deficits noted. SKIN: No rash or jaundice noted. Medical Decision & Procedures ER Provider Diagnostic Interpretation: X ray results as stated below per my interpretation and radiologist interpretation. Other radiology results as stated below per my review and radiologist interpretation CT HEAD: Comparison with CT from 07/27/16 No ICH, mass effect, or edema. No evidence of acute cortical stroke. Periventricular small vessel ischemic change. No midline shift or hydrocephalus. Diffuse parenshymal atrophy. Visualized sinuses and mastoid air cells are clear. CTA HEAD: No significant stenosis, thrombosis, aneurysm or dissection. Radiologist; Emigdio Colón M.D. Laboratory Results 09/23/17 22:48 Red Blood Count 3.74, Mean Corpuscular Volume 84.0, Mean Corpuscular Hemoglobin 27.3, Mean Corpuscular Hemoglobin Concent 32.5, Mean Platelet Volume 10.3, Neutrophils (%) (Auto) 56.4, Lymphocytes (%) (Auto) 32.3, Monocytes (%) (Auto) 8.3, Eosinophils (%) (Auto) 2.6, Basophils (%) (Auto) 0.2, Neutrophils # (Auto) 2.64, Lymphocytes # (Auto) 1.51, Monocytes # (Auto) 0.39, Eosinophils # (Auto) 0.12, Basophils # (Auto) 0.01 09/23/17 22:48 Test 09/23/17 22:48 09/23/17 22:59 White Blood Count 4.68 K/uL (4.8-10.8) Red Blood Count 3.74 M/uL (4.7-6.1) Hemoglobin 10.2 g/dL (14.0-18.0) Hematocrit 31.4 % (42-52) Mean Corpuscular Volume 84.0 fL (80-100) Mean Corpuscular Hemoglobin 27.3 pg (25-34) Mean Corpuscular Hemoglobin Concent 32.5 g/dl (32-36) Platelet Count 280 K/uL (130-400) Mean Platelet Volume 10.3 fL (7.4-10.4) Neutrophils (%) (Auto) 56.4 % Lymphocytes (%) (Auto) 32.3 % Monocytes (%) (Auto) 8.3 % Eosinophils (%) (Auto) 2.6 % Basophils (%) (Auto) 0.2 % Neutrophils # (Auto) 2.64 K/uL (1.4-6.5) Lymphocytes # (Auto) 1.51 K/uL (1.2-3.4) Monocytes # (Auto) 0.39 K/uL (0.11-0.59) Eosinophils # (Auto) 0.12 K/uL (0-0.5) Basophils # (Auto) 0.01 K/uL (0-0.2) RDW Standard Deviation 45.0 fL (36.4-46.3) RDW Coefficient of Variation 14.7 % (11.5-14.5) Immature Granulocyte % (Auto) 0.2 % Immature Granulocyte # (Auto) 0.01 K/uL (0.00-0.02) Prothrombin Time 10.0 SECONDS (9.0-12.0) Prothromb Time International Ratio 0.9 (0.9-1.1) Activated Partial Thromboplast Time 24.7 SECONDS (21.0-31.0) Partial Thromboplastin Ratio 1.0 Anion Gap 7.0 mmol/L (3-11) Est Creatinine Clear Calc Drug Dose 74.6 ml/min Estimated GFR () 71.7 Estimated GFR (Non- 61.9 BUN/Creatinine Ratio 17.6 (10-20) Calcium Level 9.0 mg/dl (8.5-10.1) Magnesium Level 2.5 mg/dl (1.8-2.4) Total Creatine Kinase 166 U/L (39-308) Creatine Kinase MB 3.3 ng/ml (0.5-3.6) Creatine Kinase MB Ratio 2.0 (0-3.0) Troponin I < 0.015 ng/ml (0-0.045) Bedside Glucose 299 mg/dl (70-99) Laboratory results reviewed by me Medications Administered Medications (Trade) Dose Ordered Sig/Shantel Route Start Time Stop Time Status Last Admin Dose Admin Morphine Sulfate (MoRPHine SULFATE INJ) 4 mg NOW STAT IV 09/23/17 22:36 09/23/17 22:38 DC 09/23/17 23:00 4 MG Ondansetron HCl (Zofran Inj) 4 mg NOW STAT IV 09/23/17 22:36 09/23/17 22:38 DC 09/23/17 22:59 4 MG ECG Indication: other (Stroke) Rate (beats per minute): 71 Rhythm: normal sinus Findings: no ectopy, other (Normal Lambert, normal intervals) ED Course 2231: The patient was evaluated in room A12. A complete history and physical exam was performed. 2236: Ordered Zofran 4 mg IV, Morphine Sulfate 4 mg IV. 0043: I reevaluated the patient at this time. He states that he is feeling better. 0017: I reevaluated the patient again. He is feeling better and is ready to go home. I Discussed results and discharge instructions: He verbalized understanding and agreement. The patient is ready for discharge. Medical Decision Differential diagnosis: Etiologies such as migraine headache, cerebrovascular event, meningitis, sinusitis, CO exposure, ICH, SAH, infection, tumor, headache, sinus thrombosis, arterial dissection, as well as others were entertained Patient was evaluated for a severe headache was gradual in onset. Patient has a history of subarachnoid hemorrhage in the past. Patient states increased headache he has daily headaches and migraines. Patient was given IV morphine and Zofran and states that he had complete resolution of his pain. Patient has no presentation suggestive of meningitis. On repeat examination patient is nonfocal neurologically and states he's 100% improved at 1:30 AM. Patient's CAT scan of the brain and CT angiogram were negative I do not suspect the patient to have a stroke brain tumor or subarachnoid hemorrhage or aneurysm at this time Blood Pressure Screening Patient's blood pressure: Normal blood pressure Impression Primary Impression: Headache Scribe Attestation The scribe's documentation has been prepared under my direction and personally reviewed by me in its entirety. I confirm that the note above accurately reflects all work, treatment, procedures, and medical decision making performed by me. Departure Information Dispostion Home / Self-Care Referrals Josh Squires III, CRNP (PCP) Patient Instructions ED Headache Migraine, My [facility] Additional Instructions Follow-up primary care physician one to 2 days. Return for increased headache or any concerns
[2017-09-23 23:04] VITALS: O2SAT 98
[2017-09-23 23:15] LABS: BASO % 0.2 %; BASO ABS # 0.01 K/uL (0-0.2); COMPLETE YES; EOS % 2.6 %; HEMATOCRIT 31.4 % (42-52); IG% 0.2 %; LYMPH % 32.3 %; LYMPH ABS # 1.51 K/uL (1.2-3.4); MEAN CORPUSCULAR HEMOGLOBIN 27.3 pg (25-34); MEAN CORPUSCULAR HGB CONC 32.5 g/dl (32-36); MEAN PLATELET VOLUME 10.3 fL (7.4-10.4); MONO % 8.3 %; NEUT % 56.4 %; PLATELET COUNT 280 K/uL (130-400); RED BLOOD COUNT 3.74 M/uL (4.7-6.1); WHITE BLOOD COUNT 4.68 K/uL (4.8-10.8)
[2017-09-23] MEDS ORDERED: TNR50 PO (23:23)
[2017-09-23] MEDS ORDERED: FURO40TA3 PO (23:23)
[2017-09-23] MEDS ORDERED: ALBU18002 INH (23:23)
[2017-09-23] MEDS ORDERED: ALBUAER INH (23:23)
[2017-09-23] MEDS ORDERED: AMLO10TA2 PO (23:23)
[2017-09-23] MEDS ORDERED: RANI300T PO (23:23)
[2017-09-23] MEDS ORDERED: SPIR25TA PO (23:24)
[2017-09-23] MEDS ORDERED: SENN-61 PO (23:24)
[2017-09-23 23:27] LABS: INR 0.9 (0.9-1.1)
[2017-09-23 23:36] LABS: BLOOD UREA NITROGEN 22 mg/dl (7-18); BUN/CREATININE RATIO 17.6 (10-20); CARBON DIOXIDE 29 mmol/L (21-32); CHLORIDE 94 mmol/L (98-107); CREATININE 1.27 mg/dl (0.60-1.40); GLUCOSE 265 mg/dl (70-99); MAGNESIUM 2.5 mg/dl (1.8-2.4); POTASSIUM 4.4 mmol/L (3.5-5.1); SODIUM 130 mmol/L (136-145)
[2017-09-24 01:39] VITALS: BP 138/65; PULSE 71; O2SAT 95
--- NOTE | 2017-09-24 06:46 | DIAGNOSTIC IMAGING REPORT ---
ANGIOGRAPHY HEAD COMBO CLINICAL HISTORY: Severe headache. History of stroke. COMPARISON STUDY: Head CT July 27, 2016 and MRI of the brain July 28, 2016 and CTA of the head April 07, 2014. TECHNIQUE: Unenhanced and arterial phase imaging of the head was performed. Intravenous injection of 93 cc of Optiray 320 IV was uneventful. Sagittal and coronal reconstructions were viewed as well as maximal intensity projections on an independent 3D workstation. FINDINGS: No acute intracranial hemorrhage, midline shift or mass effect is present. Ventricular system is normal. Basilar cisterns are patent. There are no extra-axial collections. There are no findings to suggest acute dural sinus thrombosis or acute territorial infarct. Mild white matter hypodensity suggests small vessel disease. There are no significant calvarial abnormalities. Visualized portions of the sinuses and mastoid air cells are clear. As before, the globes are shrunken, dysmorphic and contain calcifications. This is chronic. The bilateral M1, M2, A1 and A2 segments are patent. There is no abrupt vessel cut off or intracranial aneurysm. There is moderate atherosclerotic plaque within the bilateral cavernous carotids. There is no high-grade stenosis. There is is no intracranial aneurysm or dissection. IMPRESSION: 1. No acute intracranial findings. 2. No abrupt vessel cut off, aneurysm or intracranial dissection. Electronically signed by: Bear Early M.D. 09/24/2017 6:45 AM Dictated Date/Time: 09/24/2017 6:37 AM
== END 2017-09-24 01:45 | disposition home or self-care (01) ==
LOC: C.EDB 22:25 → C.EDA 09-24 01:45
DX: R51 Headache (principal); H54.7 Unspecified visual loss; J44.9 Chronic obstructive pulmonary disease, unspecified; E11.43 Type 2 diabetes mellitus with diabetic autonomic (poly)neuropathy; K31.84 Gastroparesis; E78.5 Hyperlipidemia, unspecified; I10 Essential (primary) hypertension; E03.9 Hypothyroidism, unspecified; Z79.51 Long term (current) use of inhaled steroids; Z79.4 Long term (current) use of insulin; Z86.79 Personal history of other diseases of the circulatory system; Z90.89 Acquired absence of other organs; Z87.891 Personal history of nicotine dependence; Z80.9 Family history of malignant neoplasm, unspecified; Z83.3 Family history of diabetes mellitus; Z82.49 Family history of ischemic heart disease and other diseases of the circulatory system

== ENCOUNTER → 2017-09-26 | Outpatient (CLI) | payer BC, OTHER ==
[~2017-09-26] MED LIST changes: -ALBINS/ INH; +ALBU18002 INH; +ALBUAER INH; +AMLO10TA2 PO; -FURO-85 PO; +FURO40TA3 PO; -NRV/5 PO; +RANI300T PO; +SENN-61 PO; +SPIR25TA PO; -TNR25 PO; +TNR50 PO; -VNTHFA/IN INH; -ZNTT/150 PO
[2017-09-26 11:13] LABS: URINE APPEARANCE CLEAR (CLEAR); URINE BILIRUBIN NEG (NEG); URINE COLOR YELLOW; URINE NITRITE NEG (NEG); URINE SPECIFIC GRAVITY 1.009 (1.000-1.030); UROBILINOGEN NEG (NEG)
[2017-09-26 11:16] LABS: BLOOD UREA NITROGEN 26 mg/dl (7-18); BUN/CREATININE RATIO 17.9 (10-20); CALCIUM 8.8 mg/dl (8.5-10.1); CARBON DIOXIDE 28 mmol/L (21-32); CHLORIDE 92 mmol/L (98-107); CREATININE 1.43 mg/dl (0.60-1.40); GLUCOSE 314 mg/dl (70-99); POTASSIUM 4.6 mmol/L (3.5-5.1); SODIUM 125 mmol/L (136-145)
[2017-09-26 11:21] LABS: MANUAL MICROSCOPIC REQUIRED? NO; REVIEW REQ? NO
[2017-09-26 11:21] LABS: PHOSPHORUS 3.2 mg/dl (2.5-4.9)
[2017-09-26 11:28] LABS: BETA-HYDROXYBUTYRATE 0.77 mg/dL (0.2-2.81)
== END | disposition home or self-care (01) ==
LOC: C.LABBC 08:21
PROVIDERS: ATTEND Internal Medicine Nephrology
DX: E03.9 Hypothyroidism, unspecified (principal); E87.1 Hypo-osmolality and hyponatremia

== ENCOUNTER → 2017-10-04 | Outpatient (CLI) | payer BC, OTHER ==
[~2017-10-04] MED LIST changes: -FOLI1TAB7 PO; +FOLI1TAB8 PO
[2017-10-09 21:34] LABS: C1 ESTERASE INHIB FUNC >100 % (>=68); C1 ESTERASE INHIB TC298 35 mg/dL (21-39)
== END | disposition home or self-care (01) ==
LOC: C.LAB1850 10:58
PROVIDERS: ATTEND Internal Medicine Pulmonary Disease
DX: T78.3XXA Angioneurotic edema, initial encounter (principal); X58.XXXA Exposure to other specified factors, initial encounter; Z88.9 Allergy status to unspecified drugs, medicaments and biological substances

== ENCOUNTER → 2018-02-28 | Outpatient (CLI) | payer OTHER ==
[~2018-02-28] VITALS: Ht 154.9 cm; Wt 101.6 kg
[2018-02-28 15:40] VITALS: BP 120/66; PULSE 81; Ht 154.9 cm; Wt 101.6 kg
== END | disposition home or self-care (01) ==
LOC: C.NEUR 14:20
PROVIDERS: ATTEND Physician Assistant
DX: J44.9 Chronic obstructive pulmonary disease, unspecified (principal); G47.30 Sleep apnea, unspecified

== ENCOUNTER 2021-06-02 16:56 | Inpatient (IN) ==
[2021-06-02 17:36] LABS: Appearance Urine Clear (Clear); Bilirubin Urine Negative (Negative); Blood Urine Negative (Negative); Color Urine Yellow; Glucose Urine UA 1+ (Negative); Ketones Urine Negative (Negative); Leukocyte Esterase Urine Negative (Negative); Nitrite Urine Negative (Negative); Protein Urine Trace (Negative); Specific Gravity Urine 1.004 (1.000-1.030); Urobilinogen Urine Negative (Negative)
[2021-06-02 18:07] LABS: Bacteria Urine Negative (Negative); Epithelial Cell Urine 0-5 /lpf (0-5); RBC Urine 0-4 /hpf (0-4); WBC Urine 0-5 /hpf (0-5)
--- NOTE | 2021-06-02 18:07 | Emergency Department Note ---
Impression & Plan Acute hyponatremia ED Provider Note NAME: ANISHA RICE AGE: 60 SEX: M : 1960 ARRIVES VIA: Walk-In INFORMANT: Patient, ED PROVIDER(S): Carlo Mondragon DO CHIEF COMPLAINT: Weakness HPI: The patient is a 60-year-old male who presented to the emergency department for an evaluation of generalized weakness. The patient was referred to the emergency department by his primary vehicle operator technician for hyponatremia. Reviewing the patient's previous electronic medical records reveals that the patient has had chronic hyponatremia. Reviewing the patient's previous nephrology records does state this is multifactorial. It was felt to be secondary to his medications as well as his volume status but also his history of subarachnoid hemorrhage. The patient is a history of insulin dependent diabetes mellitus. The patient states that he has been trying to limit his fluid intake. He had outpatient laboratory studies done today and was referred to the emergency department for a sodium of 117. The patient's sodium normally is in the mid to upper 120s but recently has had sodiums as low as 124, 121 and now today 117. The patient states he does not feel differently. He does complain of some weakness. He states he has been trying to limit his fluid intake and states that he has been compliant with all of his outpatient medications. He denies any recent changes to his outpatient medications. He is on multiple medications which could be causing the symptoms however. ROS: See above HPI for pertinent positives & negatives. A total of 10 systems reviewed and were otherwise negative. PAST MEDICAL HISTORY: See Below PAST SURGICAL HISTORY: See Below FAMILY HISTORY: See Below SOCIAL HISTORY: See Below HOME MEDICATIONS: See Below ALLERGIES: See Below VITALS: See Below PHYSICAL EXAMINATION: GENERAL: Patient is awake alert in no acute distress patient is resting comfortably and showing no signs of anxiety EYES: The conjunctivae are clear. The patient has blindness. EARS, NOSE, MOUTH AND THROAT: The nose is without any evidence of any deformity. Mucous membranes are moist. NECK: The neck is nontender and supple. RESPIRATORY: Normal respiratory effort is noted there is no evidence of wheezing rhonchi or rales CARDIOVASCULAR: Regular rate and rhythm noted there no murmurs rubs or gallops normal S1 normal S2. GASTROINTESTINAL: The abdomen is soft. Abdomen is nontender. MUSCULOSKELETAL/EXTREMITIES: There is no evidence of gross deformity full range of motion is noted in the hips and shoulders. SKIN: Skin is warm and dry. Pedal edema was noted bilaterally. NEUROLOGIC: Patient is awake alert and oriented x3. MEDICAL DECISION MAKING: The patient is a 60-year-old male who presented to the emergency department for an evaluation of hyponatremia. The patient does have a history of chronic hyponatremia but is sodium is much lower than baseline for him. The patient's hyponatremia was felt to be multifactorial. I did review the patient's recent notes from his primary nephrology group. This is felt to be secondary to his medications but also he has multiple underlying medical conditions which could be adding to his hyponatremia. I discussed the patient's laboratory and radiographic studies with him. At this time it is difficult to ascertain if this is secondary to volume overload or medication related or possibly a chronic underlying medical condition. I will defer fluid management to the admitting team. I did discuss his case with the on-call [facility] hospitalist group. They have agreed to evaluate the patient in the emergency department for further management and disposition. Triage Nursing notes reviewed. Prior medical records reviewed Vital Signs: reviewed and remarkable for elevated blood pressure. Differential diagnosis: Infection, dehydration, metabolic abnormality, hypo/hyperglycemia, electrolyte disturbance, anemia, hypoxia, cardiac sources, intracerebral event, toxicologic, neurologic, as well as other pathologies. ER treatment provided: See below Diagnostics interpreted by me: ECG: EKG was obtained in the emergency department. My interpretation is sinus rhythm at 63 bpm. First-degree AV block was noted. There was no ectopy. This was compared to a tracing from July 082018. No significant changes were noted. Cardiac Monitoring: An order was placed for continuous cardiac monitoring. The monitor shows a rate of 59 bpm with sinus bradycardia rhythm. Laboratory studies: As stated above and show below. Imaging studies: See below Consultation(s): 1840: Dr. Alford was notified about the patient. He will evaluate the patient in the emergency department for further management and disposition. Past Med/Surg History Medical History Abnormal CT scan of lung Angioedema Asthma uses PRN inh daily Blindness BPH (benign prostatic hyperplasia) CAD (coronary artery disease), [place] coronary artery Chronic diastolic CHF (congestive heart failure) pt unable to verify Chronic headache Chronic hyponatremia COPD (chronic obstructive pulmonary disease) DM type 1 (diabetes mellitus, type 1) Family history of colon cancer GERD (gastroesophageal reflux disease) History of angiography History of stroke History of subarachnoid hemorrhage 2013; memory/cognitive deficits (reports total of 3 strokes but only known event was in 2014 -- remaining strokes were incidental findings) Hyperlipidemia Hypertension Hypothyroidism Ischemic colitis Over 10 years ago (before 2007) Microcytic anemia Migraine LUZMA (obstructive sleep apnea) CPAP PAD (peripheral artery disease) Pneumonia Premature ventricular beats Sepsis Urinary retention Surgical History Difficult airway for intubation reports he was told he was a difficult intubation after rectal abscess ronni alfonzo at [facility]. says he has been intubated since then without issues; denies problems prior to that procedure, as well. H/O colonoscopy ~2012 per patient; no polyps History of appendectomy History of eye surgery multiple History of hand surgery Hand Incision Tendon Sheath of a Finger History of rectal abscess I&D History of tonsillectomy and adenoidectomy History of transurethral resection of prostate History of vasectomy History of ventral hernia repair Family History Mother Hypertension Grandfather (Paternal) Prostate cancer Colon cancer Brother Lung cancer Brain cancer Bone cancer Kidney disease Diabetes Son Lung cancer Diabetes Father Hemorrhagic stroke Hypertension Other Breast cancer Testicular cancer Denies family history of Ovarian cancer Myocardial infarction Social History Smoking Status: Former smoker Tobacco Type: Cigarettes Age Started Using Tobacco: 16; Age Quit Using Tobacco: 49; packs per day: 1.5; Years Smoked: 38; Cigarettes Per Day: 20; Number of Years Since Quit: 11; Second Hand Exposure: No; Hx Alcohol Use: No Hx Substance Use: No Preferred Language: Gabonese Communication Ability: Effective Visual Impairment: Blindness Hearing Ability: Hard of Hearing Utility Inspector Required: No Beliefs That Will Affect Care: None marital status: Current Living Situation: Spouse current occupational status: disabled Feels Safe at Home: Yes Childhood Exposure to Second-Hand Smoke: Yes Dental Care, Regularly: Yes Physical Activity Frequency: Does not Exercise Seatbelt Use: always Sunscreen Use: Yes Assistive Devices: Cane and CPAP Allergies Allergies Allergy/AdvReac Type Severity Reaction Status Date / Time lisinopril Allergy Severe " TONGUE Verified 06/02/21 08:41 SWELLS" lorazepam AdvReac Unknown Hallucinati Verified 06/02/21 08:41 ons Home Meds Home Medications Medication Instructions Recorded Confirmed acetaminophen 325 mg capsule 325 mg PO Q6H PRN 08/06/18 06/02/21 (Tylenol) lactobacillus combination no.4 3 3,000 mmu cells PO QAM 08/06/18 06/02/21 billion cell capsule (Probiotic) riboflavin (vitamin B2) 25 mg 25 mg PO QID PRN 08/06/18 06/02/21 tablet simethicone 125 mg chewable tablet 250 mg PO DIRECTED PRN 08/06/18 06/02/21 aspirin 81 mg tablet,delayed 81 mg PO QAM tab 06/09/19 06/02/21 release magnesium 200 mg tablet 400 mg PO QAM tab 06/09/19 06/02/21 diclofenac sodium 1 % topical gel 2 g TOPICAL QID PRN 07/05/19 06/02/21 (Voltaren) flaxseed oil 1,200 ea MISCELLANEOUS TID 07/05/19 06/02/21 glucosamine sulfate 500 mg tablet 500 mg PO DAILY 07/05/19 06/02/21 (Glucosamine) mometasone 50 mcg/actuation nasal 2 spray INTRANASAL DAILY PRN 07/05/19 06/02/21 spray (Nasonex) sennosides 8.6 mg-docusate sodium 1 tab PO BID 07/21/19 06/02/21 50 mg tablet famotidine 10 mg tablet 10 mg PO QAM 05/14/20 06/02/21 insulin aspart See Rx Instructions SUBCUT QAM 12/02/20 06/02/21 (niacinamide)(U-100) 100 unit/mL(3 mL) subcutaneous pen (Fiasp FlexTouch U-100 Insulin) ferrous sulfate 325 mg (65 mg 325 mg PO BID tab 03/25/21 06/02/21 iron) tablet diclofenac sodium 1 % topical gel 2 g TOPICAL QID 05/10/21 06/02/21 insulin detemir U-100 100 unit/mL 38 unit SUBCUT QAM ml 06/02/21 06/02/21 (3 mL) subcutaneous pen (Levemir FlexTouch U-100 Insulin) insulin detemir U-100 100 unit/mL 40 unit SUBCUT QPM ml 06/02/21 06/02/21 (3 mL) subcutaneous pen (Levemir FlexTouch U-100 Insulin) Previous Rx's Medication Instructions Recorded diazepam 2 mg tablet (Valium) 2 mg PO HS PRN #30 tab 12/01/19 levalbuterol HCl 0.63 mg/3 mL 0.63 mg INHALATION Q6H PRN #360 ml 06/08/20 solution for nebulization atenolol 50 mg tablet (Tenormin) 50 mg PO BID #60 tab 07/21/20 folic acid 1 mg tablet 1 mg PO BID #180 tab 10/13/20 fluticasone fur. 100 mcg-umeclid 1 inh INH DAILY #180 ea 12/07/20 62.5 mcg-vilant 25 mcg inhalat.powder (Trelegy Ellipta) losartan 100 mg tablet 100 mg PO QAM #90 tab 12/31/20 nortriptyline 25 mg capsule 50 mg PO HS #60 cap 12/31/20 (Pamelor) isosorbide mononitrate 30 mg 30 mg PO QAM #90 tab 01/27/21 tablet,extended release 24 hr tamsulosin 0.4 mg capsule (Flomax) 0.4 mg PO QPM #90 cap 02/28/21 promethazine 25 mg tablet 25 mg PO Q6H PRN #28 tab 03/08/21 amlodipine 5 mg tablet 5 mg PO QAM #90 tab 03/22/21 bumetanide 1 mg tablet 2 mg PO BID #120 tab 03/28/21 metoclopramide HCl 10 mg tablet 10 mg PO QID #120 tab 03/28/21 (Reglan) sodium chloride 1 gram tablet 2,000 mg PO BID #60 tab 03/28/21 albuterol sulfate 90 mcg/actuation 2 puff INHALATION QID PRN #8.5 g 03/29/21 aerosol inhaler levothyroxine 175 mcg tablet 175 mcg PO DAILY #90 tab 04/22/21 pantoprazole 40 mg tablet,delayed 40 mg PO BID #180 tab 05/13/21 release (Protonix) oxycodone-acetaminophen 5 mg-325 1 - 2 tab PO DAILY PRN #60 tab 05/17/21 mg tablet (Percocet) atorvastatin 80 mg tablet 80 mg PO DAILY #90 tab 05/24/21 hydrocodone-homatropine 5 mg-1.5 1 tab PO HS PRN #30 tab 06/02/21 mg tablet Results & Data (ED) Vital Signs Vital Signs - 24 hr 06/02/21 17:09 06/02/21 19:00 06/02/21 19:30 Temperature 36.5 C Temperature Source Temporal Artery Scan Pulse Rate 64 59 L 59 L Pulse Rate from SpO2 Sensor 58 L 59 L Respiratory Rate 18 16 18 Blood Pressure 204/78 H 178/70 H 167/69 H Blood Pressure Mean 120 106 101 Pulse Oximetry 99 98 97 Oxygen Delivery Method Room Air Room Air Sepsis Recent Fever Within 48 Hours No Sepsis New/Unexplained Change in Mental Status No Sepsis Action Taken by Nursing No Action Required Home Medications Current Medication List: was personally reviewed by me Laboratory Data Attestation: I reviewed the patient's lab results. Result diagrams: 06/02/21 17:45 06/02/21 17:45 Lab Results 06/02/21 06/02/21 06/02/21 Range/Units 17:10 17:10 17:10 WBC (4.8-10.8) K/uL RBC (4.7-6.1) M/uL Hgb (14.0-18.0) g/dL Hct (42-52) % MCV (80-100) fL MCH (25-34) pg MCHC (32-36) g/dL RDW Std Deviation (36.4-46.3) fL RDW Coeff of Analisa (11.5-14.5) % Plt Count (130-400) K/uL MPV (7.4-10.4) fL Immature Gran % (Auto) % Neut % (Auto) % Lymph % (Auto) % [place] % (Auto) % Eos % (Auto) % Baso % (Auto) % Neut # (Auto) (1.4-6.5) K/uL Lymph # (Auto) (1.2-3.4) K/uL [place] # (Auto) (0.11-0.59) K/uL Eos # (Auto) (0-0.5) K/uL Baso # (Auto) (0-0.2) K/uL Immature Gran # (Auto) (0.00-0.02) K/uL Sodium (136-145) mmol/L Potassium (3.5-5.1) mmol/L Chloride (98-107) mmol/L Carbon Dioxide (21-32) mmol/L Anion Gap (3-11) BUN (7-18) mg/dl Creatinine (0.6-1.4) mg/dl Est Cr Clr Drug Dosing ml/min Est GFR ( Amer) ml/min Est GFR (Non-Af Amer) ml/min BUN/Creatinine Ratio (10-20) Glucose (70-99) mg/dl Osmolality (280-300) mOsm/kg Calcium (8.5-10.1) mg/dl Magnesium (1.8-2.4) mg/dl Total Bilirubin (0.2-1) mg/dl AST (15-37) U/L ALT (12-78) U/L Alkaline Phosphatase (45-117) U/L Total Protein (6.4-8.2) gm/dl Albumin (3.4-5.0) gm/dl Globulin (2.5-4.0) gm/dl Albumin/Globulin Ratio (0.9-2) Urine Color Yellow Urine Appearance Clear (Clear) Urine pH 7.0 (4.5-7.5) Ur Specific [place] 1.004 (1.000-1.030) Urine Protein Trace H (Negative) Urine Glucose (UA) 1+ H (Negative) Urine Ketones Negative (Negative) Urine Blood Negative (Negative) Urine Nitrite Negative (Negative) Urine Bilirubin Negative (Negative) Urine Urobilinogen Negative (Negative) Ur Leukocyte Esterase Negative (Negative) Urine RBC 0-4 (0-4) /hpf Urine WBC 0-5 (0-5) /hpf Ur Epithelial Cells 0-5 (0-5) /lpf Urine Bacteria Negative (Negative) Urine Osmolality 110 L (500-800) mOsm/kg Ur Random Sodium 15 mmol/L COVID-19 Eval Order SARS-CoV-2 (PCR) (Negative) 06/02/21 06/02/21 06/02/21 Range/Units 17:45 17:45 17:45 WBC 7.28 (4.8-10.8) K/uL RBC 3.56 L (4.7-6.1) M/uL Hgb 11.3 L (14.0-18.0) g/dL Hct 31.2 L (42-52) % MCV 87.6 (80-100) fL MCH 31.7 (25-34) pg MCHC 36.2 H (32-36) g/dL RDW Std Deviation 40.7 (36.4-46.3) fL RDW Coeff of Analisa 12.7 (11.5-14.5) % Plt Count 310 (130-400) K/uL MPV 9.7 (7.4-10.4) fL Immature Gran % (Auto) 0.1 % Neut % (Auto) 71.6 % Lymph % (Auto) 19.0 % [place] % (Auto) 8.0 % Eos % (Auto) 1.0 % Baso % (Auto) 0.3 % Neut # (Auto) 5.22 (1.4-6.5) K/uL Lymph # (Auto) 1.38 (1.2-3.4) K/uL [place] # (Auto) 0.58 (0.11-0.59) K/uL Eos # (Auto) 0.07 (0-0.5) K/uL Baso # (Auto) 0.02 (0-0.2) K/uL Immature Gran # (Auto) 0.01 (0.00-0.02) K/uL Sodium 118 L* (136-145) mmol/L Potassium 4.1 (3.5-5.1) mmol/L Chloride 83 L (98-107) mmol/L Carbon Dioxide 28 (21-32) mmol/L Anion Gap 6.0 (3-11) BUN 18 (7-18) mg/dl Creatinine 0.96 (0.6-1.4) mg/dl Est Cr Clr Drug Dosing 95.2 ml/min Est GFR ( Amer) 98.5 ml/min Est GFR (Non-Af Amer) 85.0 ml/min BUN/Creatinine Ratio 18.8 (10-20) Glucose 176 H (70-99) mg/dl Osmolality 255 L (280-300) mOsm/kg Calcium 8.5 (8.5-10.1) mg/dl Magnesium 2.3 (1.8-2.4) mg/dl Total Bilirubin 0.4 (0.2-1) mg/dl AST 25 (15-37) U/L ALT 38 (12-78) U/L Alkaline Phosphatase 90 (45-117) U/L Total Protein 7.3 (6.4-8.2) gm/dl Albumin 4.1 (3.4-5.0) gm/dl Globulin 3.2 (2.5-4.0) gm/dl Albumin/Globulin Ratio 1.3 (0.9-2) Urine Color Urine Appearance (Clear) Urine pH (4.5-7.5) Ur Specific [place] (1.000-1.030) Urine Protein (Negative) Urine Glucose (UA) (Negative) Urine Ketones (Negative) Urine Blood (Negative) Urine Nitrite (Negative) Urine Bilirubin (Negative) Urine Urobilinogen (Negative) Ur Leukocyte Esterase (Negative) Urine RBC (0-4) /hpf Urine WBC (0-5) /hpf Ur Epithelial Cells (0-5) /lpf Urine Bacteria (Negative) Urine Osmolality (500-800) mOsm/kg Ur Random Sodium mmol/L COVID-19 Eval Order SARS-CoV-2 (PCR) (Negative) 06/02/21 06/02/21 Range/Units 17:52 17:52 WBC (4.8-10.8) K/uL RBC (4.7-6.1) M/uL Hgb (14.0-18.0) g/dL Hct (42-52) % MCV (80-100) fL MCH (25-34) pg MCHC (32-36) g/dL RDW Std Deviation (36.4-46.3) fL RDW Coeff of Analisa (11.5-14.5) % Plt Count (130-400) K/uL MPV (7.4-10.4) fL Immature Gran % (Auto) % Neut % (Auto) % Lymph % (Auto) % [place] % (Auto) % Eos % (Auto) % Baso % (Auto) % Neut # (Auto) (1.4-6.5) K/uL Lymph # (Auto) (1.2-3.4) K/uL [place] # (Auto) (0.11-0.59) K/uL Eos # (Auto) (0-0.5) K/uL Baso # (Auto) (0-0.2) K/uL Immature Gran # (Auto) (0.00-0.02) K/uL Sodium (136-145) mmol/L Potassium (3.5-5.1) mmol/L Chloride (98-107) mmol/L Carbon Dioxide (21-32) mmol/L Anion Gap (3-11) BUN (7-18) mg/dl Creatinine (0.6-1.4) mg/dl Est Cr Clr Drug Dosing ml/min Est GFR ( Amer) ml/min Est GFR (Non-Af Amer) ml/min BUN/Creatinine Ratio (10-20) Glucose (70-99) mg/dl Osmolality (280-300) mOsm/kg Calcium (8.5-10.1) mg/dl Magnesium (1.8-2.4) mg/dl Total Bilirubin (0.2-1) mg/dl AST (15-37) U/L ALT (12-78) U/L Alkaline Phosphatase (45-117) U/L Total Protein (6.4-8.2) gm/dl Albumin (3.4-5.0) gm/dl Globulin (2.5-4.0) gm/dl Albumin/Globulin Ratio (0.9-2) Urine Color Urine Appearance (Clear) Urine pH (4.5-7.5) Ur Specific [place] (1.000-1.030) Urine Protein (Negative) Urine Glucose (UA) (Negative) Urine Ketones (Negative) Urine Blood (Negative) Urine Nitrite (Negative) Urine Bilirubin (Negative) Urine Urobilinogen (Negative) Ur Leukocyte Esterase (Negative) Urine RBC (0-4) /hpf Urine WBC (0-5) /hpf Ur Epithelial Cells (0-5) /lpf Urine Bacteria (Negative) Urine Osmolality (500-800) mOsm/kg Ur Random Sodium mmol/L COVID-19 Eval Order Covid19 at [facility] SARS-CoV-2 (PCR) NEGATIVE (Negative) Imaging Data Radiologist's Impression: Chest X-Ray 06/02/21 17:38 XR chest 1V portable HISTORY: 60 years-old Male weak acute weakness COMPARISON: CT chest 11/29/2020, chest radiographs 08/18/2019 TECHNIQUE: AP view of the chest FINDINGS: Cardiomediastinal and hilar silhouettes are within normal limits. No pneumothorax, pleural effusion, airspace consolidation or overt pulmonary edema. No acute fracture. IMPRESSION: No acute process. ACT 112: Negative or not required by law. The above report was generated using voice recognition software. It may contain grammatical, syntax or spelling errors. Electronically signed by: Irineo Arenas M.D. 06/02/2021 6:10 PM Discharge Plan Visit Data Chief Complaint: Abnormal Labs/Diagnostic Testing Stated Complaint: SODIUM LEVEL LOW-DOC REF ED Provider: Carlo Mondragon Discharge Problem: Acute hyponatremia Patient Disposition: Being Evaluated by Hospitalist Condition: Good Forms Stand Alone Forms: [facility] Prescriptions Prescriptions: No Action atenolol [Tenormin] 50 mg tablet 50 mg PO BID Qty: 60 RF: 5 folic acid 1 mg tablet 1 mg PO BID Qty: 180 RF: 2 losartan 100 mg tablet 100 mg PO QAM Qty: 90 RF: 1 nortriptyline [Pamelor] 25 mg capsule 50 mg PO HS Qty: 60 RF: 5 isosorbide mononitrate 30 mg tablet extended release 24 hr 30 mg PO QAM Qty: 90 RF: 1 tamsulosin [Flomax] 0.4 mg capsule 0.4 mg PO QPM Qty: 90 RF: 3 promethazine 25 mg tablet 25 mg PO Q6H PRN (Reason: nausea and vomiting) Qty: 28 RF: 5 amlodipine 5 mg tablet 5 mg PO QAM Qty: 90 RF: 1 metoclopramide HCl [Reglan] 10 mg tablet 10 mg PO QID Qty: 120 RF: 5 sodium chloride 1 gram tablet 2,000 mg PO BID Qty: 60 RF: 5 bumetanide 1 mg tablet 2 mg PO BID Qty: 120 RF: 2 albuterol sulfate 90 mcg/actuation HFA aerosol inhaler 2 puff inhalation QID PRN (Reason: shortness of breath or wheezing) Qty: 8.5 RF: 3 levothyroxine 175 mcg tablet 175 mcg PO DAILY Qty: 90 RF: 1 pantoprazole [Protonix] 40 mg tablet,delayed release (DR/EC) 40 mg PO BID Qty: 180 RF: 1 oxycodone-acetaminophen [Percocet] 5-325 mg tablet 1 - 2 tab PO DAILY PRN (Reason: Pain) Qty: 60 RF: 0 atorvastatin 80 mg tablet 80 mg PO DAILY Qty: 90 RF: 3 hydrocodone-homatropine 5-1.5 mg tablet 1 tab PO HS PRN (Reason: cough) Qty: 30 RF: 0 diazepam [Valium] 2 mg tablet 2 mg PO HS PRN (Reason: Anxiety) Qty: 30 RF: 1 sennosides-docusate sodium 8.6-50 mg tablet 1 tab PO BID RF: 0 levalbuterol HCl 0.63 mg/3 mL solution for nebulization 0.63 mg inhalation Q6H PRN (Reason: shortness of breath or wheezing) Qty: 360 RF: 5 Trelegy Ellipta 100-62.5-25 mcg blister with device 1 inh INH DAILY Qty: 180 RF: 1 Levemir FlexTouch U-100 Insuln 100 unit/mL (3 mL) insulin pen 38 unit subcut QAM RF: 0 Fiasp FlexTouch U-100 Insulin 100 unit/mL (3 mL) insulin pen See Rx Instructions subcut QAM RF: 0 aspirin 81 mg tablet,delayed release (DR/EC) 81 mg PO QAM RF: 0 ferrous sulfate 325 mg (65 mg iron) tablet 325 mg PO BID RF: 0 diclofenac sodium 1 % gel 2 g topical QID RF: 0 Levemir FlexTouch U-100 Insuln 100 unit/mL (3 mL) insulin pen 40 unit subcut QPM RF: 0 flaxseed oil Oil 1,200 ea miscellaneous TID RF: 0 glucosamine sulfate [Glucosamine] 500 mg Tablet 500 mg PO DAILY RF: 0 mometasone [Nasonex] 50 mcg/actuation [place],Non-Aerosol 2 spray INTRANASAL DAILY PRN (Reason: dryness) RF: 0 diclofenac sodium [Voltaren] 1 % Gel 2 g TOPICAL QID PRN (Reason: Pain) RF: 0 famotidine 10 mg Tablet 10 mg PO QAM RF: 0 riboflavin (vitamin B2) 25 mg Tablet 25 mg PO QID PRN (Reason: Migraine Headache) RF: 0 simethicone 125 mg Tablet,Chewable 250 mg PO DIRECTED PRN (Reason: Gastric Reflux) RF: 0 acetaminophen [Tylenol] 325 mg Capsule 325 mg PO Q6H PRN (Reason: Pain) RF: 0 Probiotic 3 billion cell Capsule 3,000 mmu cells PO QAM RF: 0 magnesium 200 mg tablet 400 mg PO QAM RF: 0 Referrals Referrals: Josh Squires III, CRNP [Primary Care Provider] -
[2021-06-02 18:10] LABS: Basophils # (auto) 0.02 K/uL (0-0.2); Basophils % (auto) 0.3 %; Eosinophils # (auto) 0.07 K/uL (0-0.5); Hematocrit (blood only) 31.2 % (42-52); Hemoglobin 11.3 g/dL (14.0-18.0); Immature Granulocytes # (auto) 0.01 K/uL (0.00-0.02); Immature Granulocytes % (auto) 0.1 %; Lymphocytes # (auto) 1.38 K/uL (1.2-3.4); Mean Corpuscular Hemoglobin 31.7 pg (25-34); Mean Corpuscular Hgb Conc 36.2 g/dL (32-36); Mean Corpuscular Volume 87.6 fL (80-100); Mean Platelet Volume 9.7 fL (7.4-10.4); Monocytes # (auto) 0.58 K/uL (0.11-0.59); Neutrophils # (auto) 5.22 K/uL (1.4-6.5); Neutrophils % (auto) 71.6 %; Platelet Count 310 K/uL (130-400); RDW Coefficient of Variation 12.7 % (11.5-14.5); RDW Standard Deviation 40.7 fL (36.4-46.3); Red Blood Count 3.56 M/uL (4.7-6.1); White Blood Count 7.28 K/uL (4.8-10.8)
--- NOTE | 2021-06-02 18:12 | XRay Report ---
XR chest 1V portable HISTORY: 60 years-old Male weak acute weakness COMPARISON: CT chest 11/29/2020, chest radiographs 08/18/2019 TECHNIQUE: AP view of the chest FINDINGS: Cardiomediastinal and hilar silhouettes are within normal limits. No pneumothorax, pleural effusion, airspace consolidation or overt pulmonary edema. No acute fracture. IMPRESSION: No acute process. ACT 112: Negative or not required by law. The above report was generated using voice recognition software. It may contain grammatical, syntax o r spelling errors. Electronically signed by: Irineo Arenas M.D. 06/02/2021 6:10 PM
[2021-06-02 18:26] LABS: Albumin Globulin Ratio 1.3 (0.9-2); Albumin Level 4.1 gm/dl (3.4-5.0); BUN Creatinine Ratio 18.8 (10-20); Bilirubin,Total 0.4 mg/dl (0.2-1); Calcium 8.5 mg/dl (8.5-10.1); Creatinine Clr Calc Pharmacy 95.2 ml/min; Est GFR (African American) 98.5 ml/min; Globulin 3.2 gm/dl (2.5-4.0); Magnesium 2.3 mg/dl (1.8-2.4); Potassium 4.1 mmol/L (3.5-5.1); Total Protein 7.3 gm/dl (6.4-8.2)
[2021-06-02] MEDS ORDERED: INSULIN ASPART PER UNIT SC STA (20:29)
--- NOTE | 2021-06-02 21:55 | History & Physical Report ---
Date of Service June 02, 2021 Assessment & Plan (1) Acute hyponatremia: Plan: Sam Larson is a 60 yo male with complex PMHx that includes chronic hyponatremia (121-127), T1DM with associated chronic polydipsia/polyuria/blindness (last A1c 7.5 in 11/2020), h/o CVA x3 with occasional productive aphasia, h/o subarachnoid hemorrhage in 2013, COPD (no home O2), LUZMA (on nightly BiPAP) and 57 pack year smoking history who was sent to [facility] ED on 06/02 by Dairy Helper for worsening hyponatremia of 117. Acute on Chronic Hyponatremia Na 117 --> 118 today, chronically in mid-to-high 120s. Suspect worsening hyponatremia due to persistent primary polydipsia as well as increase in diuretic regimen. H/o subarachnoid hemorrhage may also be contributing. - fluid-restricted diet (<1000cc per day) - BMP Q4H, goal is maximum increase of 6-8mEq in 24 hours - DDAVP if correction is too rapid - consider hypertonic saline if no change - will hold home Bumex for now - continue home NaCl 2g PO BID - consulted Nephrology - appreciate recs Hypochloremia Suspect due to polydipsia and diuretic use. - trend BMP in AM T1DM A1c 7.5 in 11/2020. Relatively well controlled. - SSI and Lantus 38 units BID while hospitalized - A1c in the AM HTN/CAD/HLD - continue home Atenolol, Amlodipine, Isosorbide mononitrate, Losartan - continue home Aspirin and Atorvastatin COPD No home supplemental O2, takes daily inhaler as prescribed. Did not see PFTs in our records. - continue home inhalers - PRN Albuterol nebs Hypothyroidism - continue home Synthroid GERD - continue home Protonix and Pepcid FEN/GI: DM1 diet, fluid restriction DVT Prophylaxis: SCDs, TEDs Code Status: full code Disposition: med/surg with tele (2) Chronic hyponatremia: (3) Chronic venous insufficiency: (4) Diabetes mellitus type 1, uncontrolled: (5) Essential hypertension: (6) Gastroparesis: (7) LUZMA (obstructive sleep apnea): (8) COPD (chronic obstructive pulmonary disease): (9) Hypothyroidism: (10) Hyperlipidemia: (11) Depression: (12) CKD (chronic kidney disease) stage 2, GFR 60-89 ml/min: (13) CAD (coronary atherosclerotic disease): (14) BPH (benign prostatic hyperplasia): History of Present Illness Chief Complaint: hyponatremia Primary Care Provider: Josh Squires III, PATRIC Sam Larson is a 60 yo male with complex PMHx that includes chronic h yponatremia (121-127), T1DM with associated chronic polydipsia/polyuria/blindness (last A1c 7.5 in 11/2020), h/o CVA x3 with occasional productive aphasia, h/o subarachnoid hemorrhage in 2013, COPD (no home O2), LUZMA (on nightly BiPAP) and 57 pack year smoking history who was sent to [facility] ED on 06/02 by Dairy Helper for worsening hyponatremia of 117. History was obtained from patient and his . Patient reports being entirely asymptomatic and feeling well overall - denies any weakness, confusion or dizziness. Patient and deny seizure or decreased alertness. Patient reports 320 ounces of fluid intake per day for "many years" - mostly water but some diet soda. His diuretic regimen has also been increased over the last several months and he has lost ~6 pounds which he attributes largely to decreased LE edema in context of increased diuretics. Patient takes daily salt supplement per Nephrology recommendations. Denies other medication changes. In the ED the patient was largely hemodynamically stable on room air. Laboratory evaluation was significant for Na 117 that increased to 118 on re-evaluation 4 hours later. Cl was 83. Serum osmolality 255, urine osmolality 110. Urine Na 15. EKG showed NSR with 1st degree AV block. We were called for admission for hyponatremia. Allergies Allergy/AdvReac Type Severity Reaction Status Date / Time lisinopril Allergy Severe " TONGUE Verified 06/02/21 08:41 SWELLS" lorazepam AdvReac Unknown Hallucinati Verified 06/02/21 08:41 ons Home Medications Medication Instructions Recorded Confirmed Type acetaminophen 325 mg capsule 325 mg PO Q6H PRN 08/06/18 06/02/21 History (Tylenol) lactobacillus combination no.4 3 3,000 mmu cells PO QAM 08/06/18 06/02/21 History billion cell capsule (Probiotic) riboflavin (vitamin B2) 25 mg 25 mg PO QID PRN 08/06/18 06/02/21 History tablet simethicone 125 mg chewable tablet 250 mg PO DIRECTED PRN 08/06/18 06/02/21 History aspirin 81 mg tablet,delayed 81 mg PO QAM tab 06/09/19 06/02/21 History release magnesium 200 mg tablet 400 mg PO QAM tab 06/09/19 06/02/21 History diclofenac sodium 1 % topical gel 2 g TOPICAL QID PRN 07/05/19 06/02/21 History (Voltaren) flaxseed oil 1,200 ea MISCELLANEOUS TID 07/05/19 06/02/21 History glucosamine sulfate 500 mg tablet 500 mg PO DAILY 07/05/19 06/02/21 History (Glucosamine) mometasone 50 mcg/actuation nasal 2 spray INTRANASAL DAILY PRN 07/05/19 06/02/21 History spray (Nasonex) sennosides 8.6 mg-docusate sodium 1 tab PO BID 07/21/19 06/02/21 History 50 mg tablet diazepam 2 mg tablet (Valium) 2 mg PO HS PRN #30 tab 12/01/19 06/02/21 Rx famotidine 10 mg tablet 10 mg PO QAM 05/14/20 06/02/21 History levalbuterol HCl 0.63 mg/3 mL 0.63 mg INHALATION Q6H PRN #360 ml 06/08/20 06/02/21 Rx solution for nebulization atenolol 50 mg tablet (Tenormin) 50 mg PO BID #60 tab 07/21/20 06/02/21 Rx folic acid 1 mg tablet 1 mg PO BID #180 tab 10/13/20 06/02/21 Rx insulin aspart See Rx Instructions SUBCUT QAM 12/02/20 06/02/21 History (niacinamide)(U-100) 100 unit/mL(3 mL) subcutaneous pen (Fiasp FlexTouch U-100 Insulin) fluticasone fur. 100 mcg-umeclid 1 inh INH DAILY #180 ea 12/07/20 06/02/21 Rx 62.5 mcg-vilant 25 mcg inhalat.powder (Trelegy Ellipta) losartan 100 mg tablet 100 mg PO QAM #90 tab 12/31/20 06/02/21 Rx nortriptyline 25 mg capsule 50 mg PO HS #60 cap 12/31/20 06/02/21 Rx (Pamelor) isosorbide mononitrate 30 mg 30 mg PO QAM #90 tab 01/27/21 06/02/21 Rx tablet,extended release 24 hr tamsulosin 0.4 mg capsule (Flomax) 0.4 mg PO QPM #90 cap 02/28/21 06/02/21 Rx promethazine 25 mg tablet 25 mg PO Q6H PRN #28 tab 03/08/21 06/02/21 Rx amlodipine 5 mg tablet 5 mg PO QAM #90 tab 03/22/21 06/02/21 Rx ferrous sulfate 325 mg (65 mg 325 mg PO BID tab 03/25/21 06/02/21 History iron) tablet bumetanide 1 mg tablet 2 mg PO BID #120 tab 03/28/21 06/02/21 Rx metoclopramide HCl 10 mg tablet 10 mg PO QID #120 tab 03/28/21 06/02/21 Rx (Reglan) sodium chloride 1 gram tablet 2,000 mg PO BID #60 tab 03/28/21 06/02/21 Rx albuterol sulfate 90 mcg/actuation 2 puff INHALATION QID PRN #8.5 g 03/29/21 06/02/21 Rx aerosol inhaler levothyroxine 175 mcg tablet 175 mcg PO DAILY #90 tab 04/22/21 06/02/21 Rx diclofenac sodium 1 % topical gel 2 g TOPICAL QID 05/10/21 06/02/21 History pantoprazole 40 mg tablet,delayed 40 mg PO BID #180 tab 05/13/21 06/02/21 Rx release (Protonix) oxycodone-acetaminophen 5 mg-325 1 - 2 tab PO DAILY PRN #60 tab 05/17/21 06/02/21 Rx mg tablet (Percocet) atorvastatin 80 mg tablet 80 mg PO DAILY #90 tab 05/24/21 06/02/21 Rx hydrocodone-homatropine 5 mg-1.5 1 tab PO HS PRN #30 tab 06/02/21 06/02/21 Rx mg tablet insulin detemir U-100 100 unit/mL 38 unit SUBCUT QAM ml 06/02/21 06/02/21 History (3 mL) subcutaneous pen (Levemir FlexTouch U-100 Insulin) insulin detemir U-100 100 unit/mL 40 unit SUBCUT QPM ml 06/02/21 06/02/21 History (3 mL) subcutaneous pen (Levemir FlexTouch U-100 Insulin) Past Med/Surg History Medical History Abnormal CT scan of lung Angioedema Asthma uses PRN inh daily Blindness BPH (benign prostatic hyperplasia) CAD (coronary artery disease), lime coronary artery Chronic diastolic CHF (congestive heart failure) pt unable to verify Chronic headache Chronic hyponatremia COPD (chronic obstructive pulmonary disease) DM type 1 (diabetes mellitus, type 1) Family history of colon cancer GERD (gastroesophageal reflux disease) History of angiography History of stroke History of subarachnoid hemorrhage 2013; memory/cognitive deficits (reports total of 3 strokes but only known event was in 2013 -- remaining strokes were incidental findings) Hyperlipidemia Hypertension Hypothyroidism Ischemic colitis Over 10 years ago (before 2007) Microcytic anemia Migraine LUZMA (obstructive sleep apnea) CPAP PAD (peripheral artery disease) Pneumonia Premature ventricular beats Sepsis Urinary retention Surgical History Difficult airway for intubation reports he was told he was a difficult intubation after rectal abscess surgery at [facility]. says he has been intubated since then without issues; denies problems prior to that procedure, as well. H/O colonoscopy ~2012 per patient; no polyps History of appendectomy History of eye surgery multiple History of hand surgery Hand Incision Tendon Sheath of a Finger History of rectal abscess I&D History of tonsillectomy and adenoidectomy History of transurethral resection of prostate History of vasectomy History of ventral hernia repair Family History Mother Hypertension Grandfather (Paternal) Prostate cancer Colon cancer Brother Lung cancer Brain cancer Bone cancer Kidney disease Diabetes Son Lung cancer Diabetes Father Hemorrhagic stroke Hypertension Other Breast cancer Testicular cancer Denies family history of Ovarian cancer Myocardial infarction Social History Smoking Status: Former smoker Tobacco Type: Cigarettes Age Started Using Tobacco: 16; Age Quit Using Tobacco: 49; packs per day: 1.5; Years Smoked: 38; Cigarettes Per Day: 20; Smoking End Date: Pt. quit smoking on 06/30/09; Number of Years Since Quit: 11; Second Hand Exposure: No; Do You Dip or Chew Tobacco: No; Tobacco Cessation Education Requested by Patient: No Hx Alcohol Use: No Hx Substance Use: No Preferred Language: Japanese Communication Ability: Effective Communication Ability Comment: Pt. is legally blind Visual Impairment: Blindness Hearing Ability: Hard of Hearing Residential Director Required: No Beliefs That Will Affect Care: None marital status: Current Living Situation: Spouse and Family Current Living Situation Comment: Pt. lives w/ , daughter, and daughter's two dogs current occupational status: disabled Other Information That Helps Us Care for You: No Feels Safe at Home: Yes Safety Concerns: Feels Safe At This Time Childhood Exposure to Second-Hand Smoke: Yes Dental Care, Regularly: Yes Physical Activity Frequency: Does not Exercise Seatbelt Use: always Sunscreen Use: Yes Assistive Devices: Cane Assistive Devices Comment: Pt. has personal cane from home Review of Systems Review of Systems: All systems reviewed & are unremarkable except as noted in HPI & below Physical Exam Physical Exam: General: A&Ox4. NAD. Cooperative. HEENT: Atraumatic, normocephalic. Patient is blind (chronic). Pulm: CTAB A&P. -wheezes, -rales, -rhonchi. Symmetrical chest rise. No increase work of breathing. No respiratory distress. Cardiac: RRR, -mrg. Radial pulses intact and symmetrical. No LE edema. Abdominal: soft, non-tender, non-distended, BS x 4 Skin: warm, dry, no rash Neuro: non-focal exam, although some change attendant unable to be tested due to patient's blindness. Results & Data Results & Data ([facility]) Vital Signs (Past 12 Hours) Vital Signs Temp Pulse Resp BP Pulse Ox 06/02/21 21:30 71 14 162/79 H 97 06/02/21 21:00 64 19 160/47 H 98 06/02/21 20:00 63 16 188/77 H 98 06/02/21 19:30 59 L 18 167/69 H 97 06/02/21 19:00 59 L 16 178/70 H 98 06/02/21 17:09 36.5 C 64 18 204/78 H 99 Laboratory Results Laboratory Results WBC 7.28 K/uL (4.8-10.8) 06/02/21 17:45 RBC 3.56 M/uL (4.7-6.1) L 06/02/21 17:45 Hgb 11.3 g/dL (14.0-18.0) L 06/02/21 17:45 Hct 31.2 % (42-52) L 06/02/21 17:45 MCV 87.6 fL (80-100) 06/02/21 17:45 MCH 31.7 pg (25-34) 06/02/21 17:45 MCHC 36.2 g/dL (32-36) H 06/02/21 17:45 RDW Std Deviation 40.7 fL (36.4-46.3) 06/02/21 17:45 RDW Coeff of Analisa 12.7 % (11.5-14.5) 06/02/21 17:45 Plt Count 310 K/uL (130-400) 06/02/21 17:45 MPV 9.7 fL (7.4-10.4) 06/02/21 17:45 Immature Gran % (Auto) 0.1 % 06/02/21 17:45 Neut % (Auto) 71.6 % 06/02/21 17:45 Lymph % (Auto) 19.0 % 06/02/21 17:45 [place] % (Auto) 8.0 % 06/02/21 17:45 Eos % (Auto) 1.0 % 06/02/21 17:45 Baso % (Auto) 0.3 % 06/02/21 17:45 Neut # (Auto) 5.22 K/uL (1.4-6.5) 06/02/21 17:45 Lymph # (Auto) 1.38 K/uL (1.2-3.4) 06/02/21 17:45 [place] # (Auto) 0.58 K/uL (0.11-0.59) 06/02/21 17:45 Eos # (Auto) 0.07 K/uL (0-0.5) 06/02/21 17:45 Baso # (Auto) 0.02 K/uL (0-0.2) 06/02/21 17:45 Immature Gran # (Auto) 0.01 K/uL (0.00-0.02) 06/02/21 17:45 Sodium 123 mmol/L (136-145) L 06/03/21 00:23 Potassium 4.5 mmol/L (3.5-5.1) 06/03/21 00:23 Chloride 91 mmol/L (98-107) L 06/03/21 00:23 Carbon Dioxide 27 mmol/L (21-32) 06/03/21 00:23 Anion Gap 5.0 (3-11) 06/03/21 00:23 BUN 17 mg/dl (7-18) 06/03/21 00:23 Creatinine 1.02 mg/dl (0.6-1.4) 06/03/21 00:23 Est Cr Clr Drug Dosing 88.6 ml/min 06/03/21 00:23 Est GFR ( Amer) 91.5 ml/min 06/03/21 00:23 Est GFR (Non-Af Amer) 79.0 ml/min 06/03/21 00:23 BUN/Creatinine Ratio 16.3 (10-20) 06/03/21 00:23 Glucose 194 mg/dl (70-99) H 06/03/21 00:23 POC Glucose 276 mg/dl (70-99) H 06/02/21 22:11 Osmolality 255 mOsm/kg (280-300) L 06/02/21 17:45 Calcium 9.0 mg/dl (8.5-10.1) 06/03/21 00:23 Magnesium 2.3 mg/dl (1.8-2.4) 06/02/21 17:45 Total Bilirubin 0.4 mg/dl (0.2-1) 06/02/21 17:45 AST 25 U/L (15-37) 06/02/21 17:45 ALT 38 U/L (12-78) 06/02/21 17:45 Alkaline Phosphatase 90 U/L (45-117) 06/02/21 17:45 Total Protein 7.3 gm/dl (6.4-8.2) 06/02/21 17:45 Albumin 4.1 gm/dl (3.4-5.0) 06/02/21 17:45 Globulin 3.2 gm/dl (2.5-4.0) 06/02/21 17:45 Albumin/Globulin Ratio 1.3 (0.9-2) 06/02/21 17:45 Urine Color Yellow 06/02/21 17:10 Urine Appearance Clear (Clear) 06/02/21 17:10 Urine pH 7.0 (4.5-7.5) 06/02/21 17:10 Ur Specific [place] 1.004 (1.000-1.030) 06/02/21 17:10 Urine Protein Trace (Negative) H 06/02/21 17:10 Urine Glucose (UA) 1+ (Negative) H 06/02/21 17:10 Urine Ketones Negative (Negative) 06/02/21 17:10 Urine Blood Negative (Negative) 06/02/21 17:10 Urine Nitrite Negative (Negative) 06/02/21 17:10 Urine Bilirubin Negative (Negative) 06/02/21 17:10 Urine Urobilinogen Negative (Negative) 06/02/21 17:10 Ur Leukocyte Esterase Negative (Negative) 06/02/21 17:10 Urine RBC 0-4 /hpf (0-4) 06/02/21 17:10 Urine WBC 0-5 /hpf (0-5) 06/02/21 17:10 Ur Epithelial Cells 0-5 /lpf (0-5) 06/02/21 17:10 Urine Bacteria Negative (Negative) 06/02/21 17:10 Urine Osmolality 110 mOsm/kg (500-800) L 06/02/21 17:10 Ur Random Sodium 15 mmol/L 06/02/21 17:10 COVID-19 Eval Order Covid19 at [facility] 06/02/21 17:52 SARS-CoV-2 (PCR) NEGATIVE (Negative) 06/02/21 17:52 Impressions Chest X-Ray 06/02/21 17:38 XR chest 1V portable HISTORY: 60 years-old Male weak acute weakness COMPARISON: CT chest 11/29/2020, chest radiographs 08/18/2019 TECHNIQUE: AP view of the chest FINDINGS: Cardiomediastinal and hilar silhouettes are within normal limits. No pneumothorax, pleural effusion, airspace consolidation or overt pulmonary edema. No acute fracture. IMPRESSION: No acute process. ACT 112: Negative or not required by law. The above report was generated using voice recognition software. It may contain grammatical, syntax or spelling errors. Electronically signed by: Irineo Arenas M.D. 06/02/2021 6:10 PM Code Status & VTE Plan VTE Prophylaxis Plan VTE Prophylaxis will be ordered: Yes Supervising Physician Co-Signing Physician Notes Patient seen and examined, chart reviewed, case discussed with Dr. Clifton and I agree with his assessment and plan as above. In brief, patient is a 60yo male with multiple medical problems - chronic hyponatremia since at lease 2006 for which he follows with Nephrology. Baseline Na is mid 120's - 130's - thought to be multifactorial, possible medication effects, underlying COPD, h/o SAH. He is on oral salt tablets at home and has been instructed to limit fluid intake to 1.5L/day. He was recently changed from Lasix to Bumex on 03/28/21 - since that change patient reports urinating much more frequently. Sent to ED today for Na of 117 On exam he is afebrile, HD stable, NAD Skin - intact, no rashes/lesions HEENT - NC/AT, patient is blind Heart - +S1/S2, regular, no m/r/g Lungs - CTA Abd - +BS, soft, NT/ND Ext - trace edema Labs and images reviewed. Hd=058 -Serum Lgp=149 Urine Osm = 110 (lower than prior values) Urine Na=15 Assessment/Plan - 60yo male presenting with acute on chronic hyponatremia. Hypotonic with Serum Osm of 255, patient appears euvolemic. Suspect multifactorial - medication effects, free H2o intake -Monitor Na correction -Hold Bumex for now - may consider resuming at a reduced dosage once acute issues resolve - Nephrology input appreciated -Continue sodium tablets -Free H20 restriction - 1500mL -BP management with Amlodipine, Atenolol, Isosorbie, Losartan -HLP management with Atorvastatin -Continue home insulin -CPAP qHS -Remainder of plan as above Resident Activity Tracking Resident Involvement: Resident Care Provided Care Provided: Adult Hospital Medicine (1) BPH (benign prostatic hyperplasia) Lower urinary tract symptom detail: urinary frequency Lower urinary tract symptom presence: symptoms present Qualified Code(s): N40.1 - Benign prostatic hyperplasia with lower urinary tract symptoms; R35.0 - Frequency of micturition (2) Hyperlipidemia Hyperlipidemia type: mixed hyperlipidemia Qualified Code(s): E78.2 - Mixed hyperlipidemia (3) Hypothyroidism Hypothyroidism type: acquired Qualified Code(s): E03.9 - Hypothyroidism, unspecified (4) Diabetes mellitus type 1, uncontrolled Glycemic state: with hyperglycemia Qualified Code(s): E10.65 - Type 1 diabetes mellitus with hyperglycemia (5) COPD (chronic obstructive pulmonary disease) COPD type: chronic bronchitis Chronic bronchitis type: unspecified Qualified Code(s): J42 - Unspecified chronic bronchitis
[2021-06-02] MEDS ORDERED: CARBOHYDRATES FOR HYPOGLYCEMIA PO PRN (22:18)
[2021-06-02] MEDS ORDERED: GLUCOSE 10 TABS/TUBE PO PRN (22:18)
[2021-06-02] MEDS ORDERED: ACETAMINOPHEN 325 MG TAB PO PRN (22:18)
[2021-06-02] MEDS ORDERED: oxyCODONE/ACETAMINOPHEN 5mg/325mg TAB PO PRN (22:18)
[2021-06-02] MEDS ORDERED: diazePAM 2 MG TABLET PO PRN (22:18)
[2021-06-02] MEDS ORDERED: GLUCOSE 40% GEL 15 GM TUBE PO PRN (22:18)
[2021-06-02] MEDS ORDERED: SODIUM CHLORIDE 1 GM TABLET PO SCH (22:18)
[2021-06-02] MEDS ORDERED: GLUCAGON FOR INJ 1 MG VIAL SQ PRN (22:18)
[2021-06-02] MEDS ORDERED: DEXTROSE 50% 50 ML SYRINGE IV PRN (22:18)
[2021-06-02] MEDS ORDERED: ALBUTEROL 0.083% NEBU SOLN 3 ML VIAL NEB PRN (22:18)
[2021-06-02 22:37] LABS: BUN Creatinine Ratio 16.5 (10-20); Calcium 8.7 mg/dl (8.5-10.1); Creatinine Clr Calc Pharmacy 89.6 ml/min; Est GFR (African American) 91.5 ml/min
[2021-06-02] MEDS: TAMSULOSIN HCL 0.4 MG CAP PO SCH (23:09)
[2021-06-02] MEDS: PANTOprazole 40 MG TAB PO SCH (23:09)
[2021-06-02] MEDS: NORTRIPTYLINE HCL 25 MG CAP PO SCH (23:10)
[2021-06-02] MEDS: METOCLOPRAMIDE HCL 10 MG TABLET PO SCH (23:10)
[2021-06-02] MEDS: FOLIC ACID 1 MG TAB PO SCH (23:10)
[2021-06-02] MEDS: FERROUS SULFATE 325 MG TAB PO SCH (23:11)
[2021-06-02] MEDS: DOCUSATE SODIUM/SENNA 50/8.6MG TAB PO SCH (23:11)
[2021-06-02] MEDS: ATENOLOL 50 MG TABLET PO SCH (23:11)
[2021-06-02] MEDS: DICLOFENAC SOD 1% GEL 100 GM TUBE EXT SCH (23:12)
[2021-06-02] MEDS: INSULIN GLARGINE SOLOSTAR 100 UNITS/ML 3 ML PEN SC SCH (23:12)
[2021-06-02] MEDS: INSULIN ASPART 100 UNITS/ML 3 ML PEN SC SCH (23:14)
[2021-06-03 01:00] LABS: BUN Creatinine Ratio 16.3 (10-20); Creatinine Clr Calc Pharmacy 88.6 ml/min; Est GFR (African American) 91.5 ml/min; Potassium 4.5 mmol/L (3.5-5.1)
[2021-06-03] MEDS ORDERED: SIMETHICONE 80 MG CHEW PO PRN (01:14)
--- NOTE | 2021-06-03 01:37 | Billing Data ---
Date of Service June 03, 2021 Coding Level of Care Code 31785 Initial Inpt Care Lvl 3
[2021-06-03] MEDS: LEVOTHYROXINE SODIUM 175 MCG TABLET PO SCH (05:43)
[2021-06-03 07:24] LABS: Basophils # (auto) 0.01 K/uL (0-0.2); Basophils % (auto) 0.1 %; Eosinophils # (auto) 0.06 K/uL (0-0.5); Eosinophils % (auto) 0.7 %; Hematocrit (blood only) 32.1 % (42-52); Hemoglobin 11.6 g/dL (14.0-18.0); Immature Granulocytes # (auto) 0.01 K/uL (0.00-0.02); Immature Granulocytes % (auto) 0.1 %; Lymphocytes # (auto) 0.94 K/uL (1.2-3.4); Lymphocytes % (auto) 11.5 %; Mean Corpuscular Hemoglobin 31.9 pg (25-34); Mean Corpuscular Hgb Conc 36.1 g/dL (32-36); Mean Corpuscular Volume 88.2 fL (80-100); Mean Platelet Volume 9.7 fL (7.4-10.4); Monocytes # (auto) 0.79 K/uL (0.11-0.59); Monocytes % (auto) 9.6 %; Neutrophils # (auto) 6.38 K/uL (1.4-6.5); Platelet Count 296 K/uL (130-400); RDW Standard Deviation 41.9 fL (36.4-46.3); Red Blood Count 3.64 M/uL (4.7-6.1); White Blood Count 8.19 K/uL (4.8-10.8)
[2021-06-03 07:33] LABS: Estimated Average Glucose 189 mg/dl; Hemoglobin A1C 8.2 % (4.5-5.6)
[2021-06-03 07:53] LABS: BUN Creatinine Ratio 17.2 (10-20); Calcium 8.7 mg/dl (8.5-10.1); Creatinine Clr Calc Pharmacy 101.5 ml/min; Est GFR (Non-African American) 92.3 ml/min; Magnesium 2.5 mg/dl (1.8-2.4); Phosphorus 3.8 mg/dl (2.5-4.9); Potassium 4.5 mmol/L (3.5-5.1)
[2021-06-03] MEDS: ASPIRIN 81 MG ECTAB PO SCH (08:11)
[2021-06-03] MEDS: ISOSORBIDE MONO EXTENDED REL 30 MG TABCR PO SCH (08:11)
[2021-06-03] MEDS: ATORVASTATIN 40 MG TAB PO SCH (08:11)
[2021-06-03] MEDS: LOSARTAN POTASSIUM 50 MG TAB PO SCH (08:11)
[2021-06-03] MEDS: FAMOTIDINE 10 MG TABLET PO SCH (08:11)
[2021-06-03] MEDS: ATENOLOL 50 MG TABLET PO SCH ×2 (08:11→20:03)
[2021-06-03] MEDS: DOCUSATE SODIUM/SENNA 50/8.6MG TAB PO SCH ×2 (08:11→20:04)
[2021-06-03] MEDS: FOLIC ACID 1 MG TAB PO SCH ×2 (08:12→20:04)
[2021-06-03] MEDS: MAGNESIUM OXIDE 400 MG TAB PO SCH (08:12)
[2021-06-03] MEDS: GLUCOSAMINE SULFATE 500 MG CAP PO SCH (08:12)
[2021-06-03] MEDS: PANTOprazole 40 MG TAB PO SCH ×2 (08:12→20:06)
[2021-06-03] MEDS: FERROUS SULFATE 325 MG TAB PO SCH ×2 (08:12→20:04)
[2021-06-03] MEDS: METOCLOPRAMIDE HCL 10 MG TABLET PO SCH ×4 (08:12→21:16)
[2021-06-03] MEDS: amLODIPine BESYLATE 5 MG TAB PO SCH (08:12)
[2021-06-03] MEDS: FLUTICASONE FUROATE 100MCG 14 PUFFS/INHALER INH SCH (08:13)
[2021-06-03] MEDS: DICLOFENAC SOD 1% GEL 100 GM TUBE EXT SCH ×4 (08:13→20:03)
[2021-06-03] MEDS: UMECLIDINIUM/VILANTEROL 62.5/25MCG 7 PUFFS/INHALER INH SCH (08:13)
[2021-06-03] MEDS: INSULIN GLARGINE SOLOSTAR 100 UNITS/ML 3 ML PEN SC SCH ×2 (08:16→21:16)
[2021-06-03] MEDS: INSULIN ASPART 100 UNITS/ML 3 ML PEN SC SCH ×4 (08:16→21:17)
--- NOTE | 2021-06-03 08:20 | Hospitalist Progress Note ---
Date of Service June 03, 2021 Assessment & Plan (1) Acute hyponatremia: Plan: Sam Larson is a 60 yo male with complex PMHx that includes chronic hyponatremia (121-127), T1DM with associated chronic polydipsia/polyuria/blindness (last A1c 7.5 in 11/2020), h/o CVA x3 with occasional productive aphasia, h/o subarachnoid hemorrhage in 2013, COPD (no home O2), LUZMA (on nightly BiPAP) and 57 pack year smoking history who was sent to [facility] ED on 06/02 by Audiovisual Lead Technician for worsening hyponatremia of 117. Acute on Chronic Hyponatremia Suspect worsening hyponatremia due to persistent primary polydipsia as well as increase in diuretic regimen. H/o subarachnoid hemorrhage may also be contributing. - fluid-restricted diet (<1000cc per day) - Continue home Bumex per nephro - continue home NaCl 2g PO BID - Nephrology consult: - Agree with 1L free water restriction/day - Continue NaCl and Bumex as per outpatient regimen - Rate of correction in serum sodium is appropriate - Baseline sodium has been 125 - 127 mmol/L as outpatient - Advised patient to take [facility] mug home and use this to measure fluid intake each day. Mug volume is 500 cc (16 oz). He can drink up to two of these per day - Advised patient to avoid soda and to drink Gatorade as this contains 110 mg Na/8oz (250 cc) - Will order follow up PRP and Uosm in am. If PRP is 127 mmol/L or greater patient may be discharged tomorrow following the above recommendations and follow up w/ Dr. Neves in the office in 7 - 14 days - AM BMP Hypochloremia Suspect due to polydipsia and diuretic use. - trend BMP in AM T1DM A1c 7.5 in 11/2020. Relatively well controlled. - SSI and Lantus 38 units BID while hospitalized - A1c here 8.2 (06/03) HTN/CAD/HLD - continue home Atenolol, Amlodipine, Isosorbide mononitrate, Losartan - continue home Aspirin and Atorvastatin COPD No home supplemental O2, takes daily inhaler as prescribed. Did not see PFTs in our records. - continue home inhalers - PRN Albuterol nebs Hypothyroidism - continue home Synthroid GERD - continue home Protonix and Pepcid FEN/GI: DM1 diet, fluid restriction DVT Prophylaxis: SCDs, TEDs Code Status: full code Disposition: med/surg with tele (2) Chronic hyponatremia: (3) Chronic venous insufficiency: (4) Diabetes mellitus type 1, uncontrolled: (5) Essential hypertension: (6) Gastroparesis: (7) LUZMA (obstructive sleep apnea): (8) COPD (chronic obstructive pulmonary disease): (9) Hypothyroidism: (10) Hyperlipidemia: (11) Depression: (12) CKD (chronic kidney disease) stage 2, GFR 60-89 ml/min: (13) CAD (coronary atherosclerotic disease): (14) BPH (benign prostatic hyperplasia): Admission and Anticipated Discharge Date Admission Date: June 02, 2021 Supervising Physician Co-Signing Physician Notes Attending attestation Pt seen and examined in concert with Dr. Brennan. In agreement with the documented findings as noted in the resident documentation with any exceptions or additions as noted here. Reclined in bed without complaint of CP, SOB, MILLER, n/v/d/c, leg swelling. Feeling relatively at baseline. Extensive review of hydrating behaviors, not overtly feeling thirsty per se, but does consume that much out of habit without any significantly increased stimulus or intake pre-admission. On examination, S1/S2 nl RRR no MCG. CTAB. Abd NT/ND BS+ve Hyponatremia with excessive hydration - significantly improved with fluid restriction without sx. Held NaCL tablets today to prevent overcorrection. Monitor closely, consider DDAVP with overcorrection if continued. HTN - elevated presently and holding bumex at present. Continue amlodipine, atenolol, imdur, losartan. If persistently elevated, consider 2.5mg increase to amlodipine DMI - increased A1c from previous at 8.2% - continue current insulin regimen and monitor glucose thorughout the day and adjust accordingly Else see resident documentation as noted. Subjective Patient seen at bedside this morning. Reporting no symptoms. Anxious to go home but does understand that we need to make sure his hyponatremia is appropriately corrected. Review of Systems Review of Systems: All systems reviewed & are unremarkable except as noted in Subjective Physical Exam Physical Exam: General: A&Ox4. NAD. Cooperative. HEENT: Atraumatic, normocephalic. Patient is blind (chronic). Pulm: CTAB A&P. -wheezes, -rales, -rhonchi. Symmetrical chest rise. No increase work of breathing. No respiratory distress. Cardiac: RRR, -mrg. Radial pulses intact and symmetrical. No LE edema. Abdominal: soft, non-tender, non-distended, BS x 4 Skin: warm, dry, no rash Neuro: non-focal exam, although some booker unable to be tested due to patient's blindness. Results & Data Results & Data ([facility]) Vital Signs (Past 12 Hours) Vital Signs Temp Pulse Pulse Resp BP BP Pulse Ox 06/03/21 07:37 36.4 C L 60 20 144/67 H 98 06/03/21 03:09 59 L 20 150/76 H 98 06/03/21 02:50 18 06/02/21 23:00 74 16 94 06/02/21 22:25 63 06/02/21 22:18 36.8 C 62 18 181/75 H 98 06/02/21 22:10 36.8 C 62 18 181/75 H 98 06/02/21 21:30 71 14 162/79 H 97 06/02/21 21:00 64 19 160/47 H 98 Pulse Ox 06/03/21 07:37 06/03/21 03:09 06/03/21 02:50 06/02/21 23:00 06/02/21 22:25 06/02/21 22:18 98 06/02/21 22:10 06/02/21 21:30 06/02/21 21:00 Resident Activity Tracking Resident Involvement: Resident Care Provided Care Provided: Adult Hospital Medicine (1) Diabetes mellitus type 1, uncontrolled Glycemic state: with hyperglycemia Qualified Code(s): E10.65 - Type 1 diabetes mellitus with hyperglycemia (2) COPD (chronic obstructive pulmonary disease) COPD type: chronic bronchitis Chronic bronchitis type: unspecified Qualified Code(s): J42 - Unspecified chronic bronchitis (3) Hypothyroidism Hypothyroidism type: acquired Qualified Code(s): E03.9 - Hypothyroidism, unspecified (4) Hyperlipidemia Hyperlipidemia type: mixed hyperlipidemia Qualified Code(s): E78.2 - Mixed hyperlipidemia (5) BPH (benign prostatic hyperplasia) Lower urinary tract symptom presence: symptoms present Lower urinary tract symptom detail: urinary frequency Qualified Code(s): N40.1 - Benign prostatic hyperplasia with lower urinary tract symptoms; R35.0 - Frequency of micturition
[2021-06-03] MEDS ORDERED: NON-FORMULARY MEDICATION (Fluticasone-Umeclidin-Vilanter [Trelegy Ellipta] 100-62.5-25 mcg INH SCH (09:00)
[2021-06-03 13:35] LABS: BUN Creatinine Ratio 16.1 (10-20); Calcium 8.9 mg/dl (8.5-10.1); Creatinine Clr Calc Pharmacy 90.3 ml/min; Est GFR (African American) 93.7 ml/min; Est GFR (Non-African American) 80.9 ml/min; Potassium 4.4 mmol/L (3.5-5.1)
--- NOTE | 2021-06-03 17:34 | Electrocardiogram Report ---
Test Reason : Blood Pressure : / mmHG Vent. Rate : 063 BPM Atrial Rate : 063 BPM P-R Int : 224 ms QRS Dur : 094 ms QT Int : 414 ms P-R-T Axes : 039 024 042 degrees QTc Int : 423 ms Sinus rhythm with 1st degree A-V block Otherwise normal ECG When compared with ECG of 08-JUL-2019 15:47, WI interval has increased Confirmed by Jasen Larkin ([id number]) on 06/03/2021 5:33:59 PM Referred By: REFERRED SELF Confirmed By:Davion Larkin
[2021-06-03 17:36] LABS: BUN Creatinine Ratio 19.3 (10-20); Calcium 8.9 mg/dl (8.5-10.1); Creatinine Clr Calc Pharmacy 92.2 ml/min; Est GFR (African American) 96.1 ml/min; Est GFR (Non-African American) 82.9 ml/min; Potassium 4.4 mmol/L (3.5-5.1)
--- NOTE | 2021-06-03 18:00 | Nephrology Consultation ---
Date of Consultation June 03, 2021 Assessment & Plan (1) Acute hyponatremia: * Hypoosmolar hyponatremia. Calculated Sosm 247, measured Sosm 255. No clinical evidence of adrenal insufficiency, thyroid disorder, CHF or liver disease. Only mild renal insufficiency. Low urine osmolality suggestive of polydipsia. Patient reports polydipsia with ~ 12 L free water intake * Agree with 1L free water restriction/day * Continue NaCl and Bumex as per outpatient regimen * Rate of correction in serum sodium is appropriate * Baseline sodium has been 125 - 127 mmol/L as outpatient * Advised patient to take [facility] mug home and use this to measure fluid intake each day. Mug volume is 500 cc (16 oz). He can drink up to two of these per day * Advised patient to avoid soda and to drink Gatorade as this contains 110 mg Na/8oz (250 cc) * Will order follow up PRP and Uosm in am. If PRP is 127 mmol/L or greater patient may be discharged tomorrow following the above recommendations and follow up w/ Dr. Neves in the office in 7 - 14 days (2) CKD (chronic kidney disease) stage 2, GFR 60-89 ml/min: * Solitary kidney w/ baseline Cr 1.0 - 1.3 (3) Hypertension: * BP elevated despite amlodipine, losartan, atenolol, tamsulosin and isosorbide * Will add bumex 1 mg po daily History of Present Illness Reason for Consultation: Hyponatremia Attending Physician: Brad Paniagua MD History of Present Illness Mr. Larson is a 60 year old white male who is seen at the request of [facility] Hospitalist for evaluation of hyponatremia. Medical records in the EMR were reviewed today and are summarized as follows: Mr. Larson has IDDM, blindness, h/o CVA x3, COPD, LUZMA and chronic polydipsia. He reports drinking twelve 32 oz glasses of water/soda daily. This equates to ~ 12 L of free water daily. He has chronic hyponatremia with serum sodium 127 - 132 mmol/L. Yesterday Mr. Larson completed blood work for his [employer]. Serum sodium was 117 mmol/L. EMD evaluation was advised. Sosm 250, Uosm 110. Free water restriction was instituted and patient was admitted to the hospitalist service. Serum sodium has risen 9 mmol/L over the last 24 hours with 1 L /day fluid restriction. Mr. Larson voices no medical concerns. Allergies Allergy/AdvReac Type Severity Reaction Status Date / Time lisinopril Allergy Severe " TONGUE Verified 06/02/21 08:41 SWELLS" lorazepam AdvReac Unknown Hallucinati Verified 06/02/21 08:41 ons Home Medications Medication Instructions Recorded Confirmed Type acetaminophen 325 mg capsule 325 mg PO Q6H PRN 08/06/18 06/02/21 History (Tylenol) lactobacillus combination no.4 3 3,000 mmu cells PO QAM 08/06/18 06/02/21 History billion cell capsule (Probiotic) riboflavin (vitamin B2) 25 mg 25 mg PO QID PRN 08/06/18 06/02/21 History tablet simethicone 125 mg chewable tablet 250 mg PO DIRECTED PRN 08/06/18 06/02/21 History aspirin 81 mg tablet,delayed 81 mg PO QAM tab 06/09/19 06/02/21 History release magnesium 200 mg tablet 400 mg PO QAM tab 06/09/19 06/02/21 History diclofenac sodium 1 % topical gel 2 g TOPICAL QID PRN 07/05/19 06/02/21 History (Voltaren) flaxseed oil 1,200 ea MISCELLANEOUS TID 07/05/19 06/02/21 History glucosamine sulfate 500 mg tablet 500 mg PO DAILY 07/05/19 06/02/21 History (Glucosamine) mometasone 50 mcg/actuation nasal 2 spray INTRANASAL DAILY PRN 07/05/19 06/02/21 History spray (Nasonex) sennosides 8.6 mg-docusate sodium 1 tab PO BID 07/21/19 06/02/21 History 50 mg tablet diazepam 2 mg tablet (Valium) 2 mg PO HS PRN #30 tab 12/01/19 06/02/21 Rx famotidine 10 mg tablet 10 mg PO QAM 05/14/20 06/02/21 History levalbuterol HCl 0.63 mg/3 mL 0.63 mg INHALATION Q6H PRN #360 ml 06/08/20 06/02/21 Rx solution for nebulization atenolol 50 mg tablet (Tenormin) 50 mg PO BID #60 tab 07/21/20 06/02/21 Rx folic acid 1 mg tablet 1 mg PO BID #180 tab 10/13/20 06/02/21 Rx insulin aspart See Rx Instructions SUBCUT QAM 12/02/20 06/02/21 History (niacinamide)(U-100) 100 unit/mL(3 mL) subcutaneous pen (Fiasp FlexTouch U-100 Insulin) fluticasone fur. 100 mcg-umeclid 1 inh INH DAILY #180 ea 12/07/20 06/02/21 Rx 62.5 mcg-vilant 25 mcg inhalat.powder (Trelegy Ellipta) losartan 100 mg tablet 100 mg PO QAM #90 tab 12/31/20 06/02/21 Rx nortriptyline 25 mg capsule 50 mg PO HS #60 cap 12/31/20 06/02/21 Rx (Pamelor) isosorbide mononitrate 30 mg 30 mg PO QAM #90 tab 01/27/21 06/02/21 Rx tablet,extended release 24 hr tamsulosin 0.4 mg capsule (Flomax) 0.4 mg PO QPM #90 cap 02/28/21 06/02/21 Rx promethazine 25 mg tablet 25 mg PO Q6H PRN #28 tab 03/08/21 06/02/21 Rx amlodipine 5 mg tablet 5 mg PO QAM #90 tab 03/22/21 06/02/21 Rx ferrous sulfate 325 mg (65 mg 325 mg PO BID tab 03/25/21 06/02/21 History iron) tablet bumetanide 1 mg tablet 2 mg PO BID #120 tab 03/28/21 06/02/21 Rx metoclopramide HCl 10 mg tablet 10 mg PO QID #120 tab 03/28/21 06/02/21 Rx (Reglan) sodium chloride 1 gram tablet 2,000 mg PO BID #60 tab 03/28/21 06/02/21 Rx albuterol sulfate 90 mcg/actuation 2 puff INHALATION QID PRN #8.5 g 03/29/21 06/02/21 Rx aerosol inhaler levothyroxine 175 mcg tablet 175 mcg PO DAILY #90 tab 04/22/21 06/02/21 Rx diclofenac sodium 1 % topical gel 2 g TOPICAL QID 05/10/21 06/02/21 History pantoprazole 40 mg tablet,delayed 40 mg PO BID #180 tab 05/13/21 06/02/21 Rx release (Protonix) oxycodone-acetaminophen 5 mg-325 1 - 2 tab PO DAILY PRN #60 tab 05/17/21 06/02/21 Rx mg tablet (Percocet) atorvastatin 80 mg tablet 80 mg PO DAILY #90 tab 05/24/21 06/02/21 Rx hydrocodone-homatropine 5 mg-1.5 1 tab PO HS PRN #30 tab 06/02/21 06/02/21 Rx mg tablet insulin detemir U-100 100 unit/mL 38 unit SUBCUT QAM ml 06/02/21 06/02/21 History (3 mL) subcutaneous pen (Levemir FlexTouch U-100 Insulin) insulin detemir U-100 100 unit/mL 40 unit SUBCUT QPM ml 06/02/21 06/02/21 History (3 mL) subcutaneous pen (Levemir FlexTouch U-100 Insulin) Patient History Medical History Abnormal CT scan of lung Angioedema Asthma uses PRN inh daily Blindness BPH (benign prostatic hyperplasia) CAD (coronary artery disease), [place] coronary artery Chronic diastolic CHF (congestive heart failure) pt unable to verify Chronic headache Chronic hyponatremia COPD (chronic obstructive pulmonary disease) DM type 1 (diabetes mellitus, type 1) Family history of colon cancer GERD (gastroesophageal reflux disease) History of angiography History of stroke History of subarachnoid hemorrhage 2013; memory/cognitive deficits (reports total of 3 strokes but only known event was in 2013 -- remaining strokes were incidental findings) Hyperlipidemia Hypertension Hypothyroidism Ischemic colitis Over 10 years ago (before 2007) Microcytic anemia Migraine LUZMA (obstructive sleep apnea) CPAP PAD (peripheral artery disease) Pneumonia Premature ventricular beats Sepsis Urinary retention Surgical History Difficult airway for intubation reports he was told he was a difficult intubation after rectal abscess surgery at [facility] [place]. says he has been intubated since then without issues; denies problems prior to that procedure, as well. H/O colonoscopy ~2012 per patient; no polyps History of appendectomy History of eye surgery multiple History of hand surgery Hand Incision Tendon Sheath of a Finger History of rectal abscess I&D History of tonsillectomy and adenoidectomy History of transurethral resection of prostate History of vasectomy History of ventral hernia repair Family History Mother Hypertension Grandfather (Paternal) Prostate cancer Colon cancer Brother Lung cancer Brain cancer Bone cancer Kidney disease Diabetes Son Lung cancer Diabetes Father Hemorrhagic stroke Hypertension Other Breast cancer Testicular cancer Denies family history of Ovarian cancer Myocardial infarction Social History Smoking Status: Former smoker Tobacco Type: Cigarettes Age Started Using Tobacco: 16; Age Quit Using Tobacco: 49; packs per day: 1.5; Years Smoked: 38; Cigarettes Per Day: 20; Smoking End Date: Pt. quit smoking on 06/30/09; Number of Years Since Quit: 11; Second Hand Exposure: No; Do You Dip or Chew Tobacco: No; Tobacco Cessation Education Requested by Patient: No Hx Alcohol Use: No Hx Substance Use: No Preferred Language: Tongan Communication Ability: Effective Communication Ability Comment: Pt. is legally blind Visual Impairment: Blindness Hearing Ability: Hard of Hearing Medical Records Receptionist Required: No Beliefs That Will Affect Care: None marital status: Current Living Situation: Spouse and Family Current Living Situation Comment: Pt. lives w/ , daughter, and daughter's two dogs current occupational status: disabled Other Information That Helps Us Care for You: No Feels Safe at Home: Yes Safety Concerns: Feels Safe At This Time Childhood Exposure to Second-Hand Smoke: Yes Dental Care, Regularly: Yes Physical Activity Frequency: Does not Exercise Seatbelt Use: always Sunscreen Use: Yes Assistive Devices: Cane Assistive Devices Comment: Pt. has personal cane from home Review of Systems Constitutional: no fever Eyes: + problem reported (legally blind) Ear, Nose, Mouth, Throat: no problem reported Respiratory: no dyspnea Cardiovascular: no chest pain, no palpitations and no edema Gastrointestinal: no abdominal pain, no nausea, no vomiting and no diarrhea/loose stools Genitourinary: no dysuria, no urinary hesitancy or no hematuria Musculoskeletal: no back pain Integumentary: no rash Neurologic: no confusion Physical Exam Constitutional: + ill appearing Eyes: + corneal abnormality ENMT: external ear and nose normal, oropharynx normal Neck: trachea midline, no thyromegaly Respiratory: normal respiratory effort, lungs clear to auscultation Cardiovascular: RRR, no murmur, no edema Gastrointestinal (Abdomen): normal bowel sounds, soft, nontender, no hepatosplenomegaly Musculoskeletal: Extremities: no cyanosis Neurologic: awake; not confused Results & Data ([facility]) Vital Signs (Past 12 Hours) Vital Signs Temp Pulse Resp BP BP Pulse Ox 06/03/21 15:29 36.4 C L 75 20 178/80 H 197/70 H 93 06/03/21 11:57 36.3 C L 64 20 152/72 H 99 06/03/21 07:37 36.4 C L 60 20 144/67 H 98 Laboratory Results Laboratory Tests 06/03/21 06/03/21 06:41 06:41 WBC 8.19 Hgb 11.6 L Hct 32.1 L Plt Count 296 Sodium 125 L Potassium 4.5 Chloride 92 L Carbon Dioxide 29 BUN 15 Creatinine 0.89 Glucose 182 H Calcium 8.7 Phosphorus 3.8 Magnesium 2.5 H Laboratory Tests 06/02/21 17:10 Urine Osmolality 110 L PG Care Time/CCT Total # of Minutes Spent Total Time Spent with Patient: Total time spent is greater than 50% in coordination of care (as documented) at patient's floor/unit and/or counseling patient: Coding Level of Care Code 53559 Inpt Consult Level 5 Diagnoses Acute hyponatremia E87.1 CKD (chronic kidney disease) stage 2, GFR 60-89 ml/min N18.2 Hypertension I10
[2021-06-03] MEDS: BUMETANIDE 1 MG TAB PO SCH (19:18)
[2021-06-03] MEDS: TAMSULOSIN HCL 0.4 MG CAP PO SCH (20:03)
[2021-06-03] MEDS: NORTRIPTYLINE HCL 25 MG CAP PO SCH (20:05)
[2021-06-04] MEDS: INSULIN ASPART 100 UNITS/ML 3 ML PEN SC SCH ×2 (04:38→08:22)
[2021-06-04] MEDS: LEVOTHYROXINE SODIUM 175 MCG TABLET PO SCH (05:32)
--- NOTE | 2021-06-04 06:45 | Hospitalist Progress Note ---
Date of Service June 04, 2021 Assessment & Plan (1) Acute hyponatremia: Plan: Sam Larson is a 60 yo male with complex PMHx that includes chronic hyponatremia (121-127), T1DM with associated chronic polydipsia/polyuria/blindness (last A1c 7.5 in 11/2020), h/o CVA x3 with occasional productive aphasia, h/o subarachnoid hemorrhage in 2013, COPD (no home O2), LUZMA (on nightly BiPAP) and 57 pack year smoking history who was sent to [facility] ED on 06/02 by Pot[employer] Sorter for worsening hyponatremia of 117. Acute on Chronic Hyponatremia Suspect worsening hyponatremia due to persistent primary polydipsia as well as increase in diuretic regimen H/o subarachnoid hemorrhage may also be contributing Fluid-restricted diet (<1000cc per day) Continue home Bumex per nephro Continue home NaCl 2g PO BID Nephrology consult: - Agree with 1L free water restriction/day - Continue NaCl and Bumex as per outpatient regimen - Rate of correction in serum sodium is appropriate - Baseline sodium has been 125 - 127 mmol/L as outpatient - Advised patient to take [facility] mug home and use this to measure fluid intake each day. Mug volume is 500 cc (16 oz). He can drink up to two of these per day - Advised patient to avoid soda and to drink Gatorade as this contains 110 mg Na/8oz (250 cc) - Will order follow up PRP and Uosm in am. If PRP is 127 mmol/L or greater patient may be discharged tomorrow following the above recommendations and follow up w/ Dr. Neves in the office in 7 - 14 days - AM BMP Hypochloremia Suspect due to polydipsia and diuretic use. - trend BMP in AM T1DM A1c 7.5 in 11/2020. Relatively well controlled. - SSI and Lantus 38 units BID while hospitalized - A1c here 8.2 (06/03) HTN/CAD/HLD - continue home Atenolol, Amlodipine, Isosorbide mononitrate, Losartan - continue home Aspirin and Atorvastatin COPD No home supplemental O2, takes daily inhaler as prescribed. Did not see PFTs in our records. - continue home inhalers - PRN Albuterol nebs Hypothyroidism - continue home Synthroid GERD - continue home Protonix and Pepcid FEN/GI: DM1 diet, fluid restriction DVT Prophylaxis: SCDs, TEDs Code Status: full code Disposition: med/surg with tele (2) Chronic hyponatremia: (3) Chronic venous insufficiency: (4) Diabetes mellitus type 1, uncontrolled: (5) Essential hypertension: (6) Gastroparesis: (7) LUZMA (obstructive sleep apnea): (8) COPD (chronic obstructive pulmonary disease): (9) Hypothyroidism: (10) Hyperlipidemia: (11) Depression: (12) CKD (chronic kidney disease) stage 2, GFR 60-89 ml/min: (13) CAD (coronary atherosclerotic disease): (14) BPH (benign prostatic hyperplasia): Admission and Anticipated Discharge Date Admission Date: June 02, 2021 Subjective Patient seen and evaluated at bedside this morning. No acute events overnight. Feels well without complaint today. Endorses mild headache but no other symptoms including fever, chills,CP, SOB, constipation, diarrhea, numbness, or tingling. Review of Systems Review of Systems: See HPI Physical Exam Physical Exam: Constitutional: well-appearing, no acute distress CV: regular rhythm, no murmur appreciated, extremities well-perfused, no LE edema Resp: CTABL, no wheezes/rales/rhonchi appreciated, no increased work of breathing Neuro: AOx4, fixed upward gaze, blind Psych: cooperative, pleasant, appropriate rate/volume/quantity of speech Results & Data Results & Data ([facility]) Vital Signs (Past 12 Hours) Vital Signs Temp Pulse Pulse Resp BP BP Pulse Ox 06/04/21 04:56 110 H 22 92 06/04/21 02:45 36.5 C 60 18 139/67 94 06/03/21 23:46 115 H 18 93 06/03/21 23:33 36.8 C 66 19 167/74 H 96 06/03/21 22:19 61 06/03/21 19:29 36.8 C 69 17 183/72 H 97 (1) BPH (benign prostatic hyperplasia) Lower urinary tract symptom detail: urinary frequency Lower urinary tract symptom presence: symptoms present Qualified Code(s): N40.1 - Benign prostatic hyperplasia with lower urinary tract symptoms; R35.0 - Frequency of micturition (2) Hyperlipidemia Hyperlipidemia type: mixed hyperlipidemia Qualified Code(s): E78.2 - Mixed hyperlipidemia (3) Hypothyroidism Hypothyroidism type: acquired Qualified Code(s): E03.9 - Hypothyroidism, unspecified (4) Diabetes mellitus type 1, uncontrolled Glycemic state: with hyperglycemia Qualified Code(s): E10.65 - Type 1 diabetes mellitus with hyperglycemia (5) COPD (chronic obstructive pulmonary disease) COPD type: chronic bronchitis Chronic bronchitis type: unspecified Qualified Code(s): J42 - Unspecified chronic bronchitis
[2021-06-04 07:21] LABS: BUN Creatinine Ratio 18.6 (10-20); Calcium 8.7 mg/dl (8.5-10.1); Potassium 3.8 mmol/L (3.5-5.1)
[2021-06-04] MEDS: ASPIRIN 81 MG ECTAB PO SCH (08:18)
[2021-06-04] MEDS: LOSARTAN POTASSIUM 50 MG TAB PO SCH (08:18)
[2021-06-04] MEDS: amLODIPine BESYLATE 5 MG TAB PO SCH (08:18)
[2021-06-04] MEDS: PANTOprazole 40 MG TAB PO SCH (08:19)
[2021-06-04] MEDS: METOCLOPRAMIDE HCL 10 MG TABLET PO SCH (08:19)
[2021-06-04] MEDS: DOCUSATE SODIUM/SENNA 50/8.6MG TAB PO SCH (08:19)
[2021-06-04] MEDS: GLUCOSAMINE SULFATE 500 MG CAP PO SCH (08:19)
[2021-06-04] MEDS: FOLIC ACID 1 MG TAB PO SCH (08:19)
[2021-06-04] MEDS: ISOSORBIDE MONO EXTENDED REL 30 MG TABCR PO SCH (08:19)
[2021-06-04] MEDS: ATENOLOL 50 MG TABLET PO SCH (08:19)
[2021-06-04] MEDS: FAMOTIDINE 10 MG TABLET PO SCH (08:19)
[2021-06-04] MEDS: FERROUS SULFATE 325 MG TAB PO SCH (08:19)
[2021-06-04] MEDS: DICLOFENAC SOD 1% GEL 100 GM TUBE EXT SCH (08:20)
[2021-06-04] MEDS: ATORVASTATIN 40 MG TAB PO SCH (08:20)
[2021-06-04] MEDS: BUMETANIDE 1 MG TAB PO SCH (08:20)
[2021-06-04] MEDS: INSULIN GLARGINE SOLOSTAR 100 UNITS/ML 3 ML PEN SC SCH (08:21)
[2021-06-04] MEDS: UMECLIDINIUM/VILANTEROL 62.5/25MCG 7 PUFFS/INHALER INH SCH (08:21)
[2021-06-04] MEDS: MAGNESIUM OXIDE 400 MG TAB PO SCH (08:21)
[2021-06-04] MEDS: FLUTICASONE FUROATE 100MCG 14 PUFFS/INHALER INH SCH (08:21)
--- NOTE | 2021-06-04 13:25 | Nephrology Progress Note ---
Date of Service June 04, 2021 Assessment & Plan (1) Acute hyponatremia: (2) Hypertension: (3) Insulin dependent diabetes mellitus: Plan: Acute hyponatremia with serum sodium 117 with history of chronic hyponatremia secondary to excessive free water intake. Sodium improved with fluid restriction, sodium 129 this morning. -- Okay to be discharged with outpatient lab monitoring, already has follow-up appointment in 2 weeks. Admission and Anticipated Discharge Date Admission Date: June 02, 2021 Subjective Cody was seen in his room this morning. Overall he feels well. Sodium improved to 129. Blood pressure stable. Review of Systems Review of Systems: Detailed review of system was otherwise unremarkable. Physical Exam Constitutional: well developed and well nourished; no acute distress Respiratory: normal respiratory effort, lungs clear to auscultation Cardiovascular: RRR, no murmur, no edema Neurologic: moves all extremities and awake; not confused Psychiatric: A+Ox3, euthymic affect Results & Data ([facility]) Vital Signs (Past 12 Hours) Vital Signs Temp Pulse Pulse Resp BP BP Pulse Ox 06/04/21 11:28 36.7 C 63 16 127/72 06/04/21 11:25 36.5 C 62 18 167/74 H 145/75 H 96 06/04/21 07:36 36.5 C 62 18 145/75 H 96 06/04/21 07:11 58 L 06/04/21 04:56 110 H 22 92 06/04/21 02:45 36.5 C 60 18 139/67 94 PG Care Time/CCT Total # of Minutes Spent Total Time Spent with Patient: Total time spent is greater than 50% in coordination of care (as documented) at patient's floor/unit and/or counseling patient: Coding Level of Care Code 84037 Subseq Hosp Care Lvl 2 Diagnoses Acute hyponatremia E87.1 Hypertension I10 Insulin dependent diabetes mellitus E11.9; Z79.4
--- NOTE | 2021-06-04 14:19 | Discharge Summary ---
Date of Service June 04, 2021 Admission HPI Per Admitting Provider Sam Larson is a 60 yo male with complex PMHx that includes chronic hyponatremia (121-127), T1DM with associated chronic polydipsia/polyuria/blindness (last A1c 7.5 in 11/2020), h/o CVA x3 with occasional productive aphasia, h/o subarachnoid hemorrhage in 2013, COPD (no home O2), LUZMA (on nightly BiPAP) and 57 pack year smoking history who was sent to [facility] ED on 06/02 by [employer] for worsening hyponatremia of 117. History was obtained from patient and his . Patient reports being entirely asymptomatic and feeling well overall - denies any weakness, confusion or dizziness. Patient and deny seizure or decreased alertness. Patient reports 320 ounces of fluid intake per day for "many years" - mostly water but some diet soda. His diuretic regimen has also been increased over the last several months and he has lost ~6 pounds which he attributes largely to decreased LE edema in context of increased diuretics. Patient takes daily salt supplement per Nephrology recommendations. Denies other medication changes. In the ED the patient was largely hemodynamically stable on room air. Laboratory evaluation was significant for Na 117 that increased to 118 on re-evaluation 4 hours later. Cl was 83. Serum osmolality 255, urine osmolality 110. Urine Na 15. EKG showed NSR with 1st degree AV block. We were called for admission for hyponatremia. Admission Exam Per Admitting Provider General: A&Ox4. NAD. Cooperative. HEENT: Atraumatic, normocephalic. Patient is blind (chronic). Pulm: CTAB A&P. -wheezes, -rales, -rhonchi. Symmetrical chest rise. No increase work of breathing. No respiratory distress. Cardiac: RRR, -mrg. Radial pulses intact and symmetrical. No LE edema. 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 Principal Diagnosis Rvipv-[id number]-[id number] hyponatremia Discharge Exam Constitutional: well-appearing, no acute distress CV: regular rhythm, no murmur appreciated, extremities well-perfused, no LE edema Resp: CTABL, no wheezes/rales/rhonchi appreciated, no increased work of breathing Neuro: AOx4, fixed upward gaze, blind Psych: cooperative, pleasant, appropriate rate/volume/quantity of speech Discharge Data Allergies Allergy/AdvReac Type Severity Reaction Status Date / Time lisinopril Allergy Severe " TONGUE Verified 06/02/21 08:41 SWELLS" lorazepam AdvReac Unknown Hallucinati Verified 06/02/21 08:41 ons Consultations 06/02/21 18:36 ED Decision to Admit Stat 06/02/21 22:18 Consult Nephrology Routine Hospital Course (1) Acute hyponatremia: Qxkxn-[id number]-nhllagf hyponatremia Patients hyponatremia was suspected to be secondary to primary polydipsia in addition to an increase in patients diuretic regimen. Nephrology was consulted and recommended continue home bumex, continued home NaCl (2g PO bid), and fluid restricting to under 1000mL/day. Patients sodium improved at an appropriate rate. Sodium on day of discharge was 129. Patient was counseled on fluid restriction. Patient was discharged on hospital day three in stable condition with nephrology follow-up arranged. T1DM HbA1c during this visit (06/03/21) was 8.2%. While hospitalized, patient continued on lantus 38u bid in addition to sliding-scale insulin. BSG were well- controlled. HTN/CAD/HLD Patients home dose atenolol, amlodipine, isosorbide mononitrate, losartan, aspirin, and atorvastatin were continued during this hospitalization. COPD Patients home inhaler regimen was continued during this hospitalization. Hypothyroidism Patients home synthroid was continued during this hospitalization. GERD Patients home protonix and pepcid were continued during this hospitalization. Total Time Total Time Spent Total Time Spent (In Minutes): see attending documentation Discharge Plan Discharge Items Patient Disposition: Home - Self-Care Reason For Visit: HYPONATREMIA Discharge Diagnosis: Hyponatremia Condition on Discharge: Good Activity: Resume your previous activity Non-emergency contact: Primary Care Provider and [employer] Call non-emergency contact if: you have any medication questions Follow-up/Referrals: Josh Squires III, CRNP [Primary Care Provider] - 06/14/21 9:20 am Mansi Neves MD [Physician] - 06/13/21 12:00 pm Diet: Other - See Diet Comment Fluids: 1000ml (4 cups) Addtl Attending Provider Instructions: You were admitted to the hospital for low sodium (hyponatremia) due to drinking too much water. You were treated with sodium chloride, diuretics, and other medicines. A discharge summary will be sent to your primary care physician to ensure continuity of care. Please bring this discharge summary with you to your next office appointment so that your provider can review it at that time. Follow-up appointments: Make a follow-up appointment with your PCP within the next week. It is very important that you follow up with them shortly after discharge from the hospital. We have requested a follow-up appointment with Dr. Neves within 7-14 days of discharge. Please call their office if you do not hear from them. Keep all your follow-up appointments as already scheduled. If you cannot make an appointment, notify your provider. Fluid: Please limit your fluid intake to 1000mL per day. You have been given a [place] mug which is 500mL - limit your fluid intake to two of these per day. Medications: Your medication list has been reviewed and reconciled upon discharge to ensure accuracy and continuity of care. We have not sent in any new medicines. Continue your sodium chloride and bumex regimens as you were on previously. Take your medications as instructed; do not skip a dose of your medicines. Make sure all of your doctors know every medicine you are taking (including woeu-dcj-vybzknc medicines, vitamins, and supplements). Call your primary care provider before taking any new medicines (including whek-acl-jhswzdm medicines, vitamins, and supplements), because some of these may interact with your current medications, or may make your symptoms worse. Tell your primary care provider if you cannot afford your medications. CONTACT YOUR PRIMARY CARE PROVIDER if you experience any of the following: Weakness, fatigue Inability to control your fluid intake Difficulty following your treatment plan, or difficulty taking medications CALL 911 OR GO TO THE EMERGENCY DEPARTMENT if you experience any of the following: Sudden, severe abdominal pain or nausea/vomiting Severe chest pain, or chest pain that radiates (moves) to your jaw or arm Sudden, severe shortness of breath or difficulty breathing Thank you for allowing us to participate in your care. Pending Studies at Discharge: No Stand-Alone Forms: My [facility], Smoking Cessation Medications and DC Order Prescriptions: Continued atenolol [Tenormin] 50 mg tablet 50 mg PO BID Qty: 60 RF: 5 folic acid 1 mg tablet 1 mg PO BID Qty: 180 RF: 2 losartan 100 mg tablet 100 mg PO QAM Qty: 90 RF: 1 nortriptyline [Pamelor] 25 mg capsule 50 mg PO HS Qty: 60 RF: 5 isosorbide mononitrate 30 mg tablet extended release 24 hr 30 mg PO QAM Qty: 90 RF: 1 tamsulosin [Flomax] 0.4 mg capsule 0.4 mg PO QPM Qty: 90 RF: 3 promethazine 25 mg tablet 25 mg PO Q6H PRN (Reason: nausea and vomiting) Qty: 28 RF: 5 amlodipine 5 mg tablet 5 mg PO QAM Qty: 90 RF: 1 metoclopramide HCl [Reglan] 10 mg tablet 10 mg PO QID Qty: 120 RF: 5 sodium chloride 1 gram tablet 2,000 mg PO BID Qty: 60 RF: 5 bumetanide 1 mg tablet 2 mg PO BID Qty: 120 RF: 2 albuterol sulfate 90 mcg/actuation HFA aerosol inhaler 2 puff inhalation QID PRN (Reason: shortness of breath or wheezing) Qty: 8.5 RF: 3 levothyroxine 175 mcg tablet 175 mcg PO DAILY Qty: 90 RF: 1 pantoprazole [Protonix] 40 mg tablet,delayed release (DR/EC) 40 mg PO BID Qty: 180 RF: 1 oxycodone-acetaminophen [Percocet] 5-325 mg tablet 1 - 2 tab PO DAILY PRN (Reason: Pain) Qty: 60 RF: 0 atorvastatin 80 mg tablet 80 mg PO DAILY Qty: 90 RF: 3 hydrocodone-homatropine 5-1.5 mg tablet 1 tab PO HS PRN (Reason: cough) Qty: 30 RF: 0 diazepam [Valium] 2 mg tablet 2 mg PO HS PRN (Reason: Anxiety) Qty: 30 RF: 1 sennosides-docusate sodium 8.6-50 mg tablet 1 tab PO BID RF: 0 levalbuterol HCl 0.63 mg/3 mL solution for nebulization 0.63 mg inhalation Q6H PRN (Reason: shortness of breath or wheezing) Qty: 360 RF: 5 Trelegy Ellipta 100-62.5-25 mcg blister with device 1 inh INH DAILY Qty: 180 RF: 1 Levemir FlexTouch U-100 Insuln 100 unit/mL (3 mL) insulin pen 38 unit subcut QAM RF: 0 Fiasp FlexTouch U-100 Insulin 100 unit/mL (3 mL) insulin pen See Rx Instructions subcut QAM RF: 0 aspirin 81 mg tablet,delayed release (DR/EC) 81 mg PO QAM RF: 0 ferrous sulfate 325 mg (65 mg iron) tablet 325 mg PO BID RF: 0 diclofenac sodium 1 % gel 2 g topical QID RF: 0 Levemir FlexTouch U-100 Insuln 100 unit/mL (3 mL) insulin pen 40 unit subcut QPM RF: 0 flaxseed oil Oil 1,200 ea miscellaneous TID RF: 0 glucosamine sulfate [Glucosamine] 500 mg Tablet 500 mg PO DAILY RF: 0 mometasone [Nasonex] 50 mcg/actuation [place],Non-Aerosol 2 spray INTRANASAL DAILY PRN (Reason: dryness) RF: 0 diclofenac sodium [Voltaren] 1 % Gel 2 g TOPICAL QID PRN (Reason: Pain) RF: 0 famotidine 10 mg Tablet 10 mg PO QAM RF: 0 riboflavin (vitamin B2) 25 mg Tablet 25 mg PO QID PRN (Reason: Migraine Headache) RF: 0 simethicone 125 mg Tablet,Chewable 250 mg PO DIRECTED PRN (Reason: Gastric Reflux) RF: 0 acetaminophen [Tylenol] 325 mg Capsule 325 mg PO Q6H PRN (Reason: Pain) RF: 0 Probiotic 3 billion cell Capsule 3,000 mmu cells PO QAM RF: 0 magnesium 200 mg tablet 400 mg PO QAM RF: 0 Discharge Orders: Discharge Order (Routine); Ordered 06/04/21 Ordered By: Niranjan Galdamez/Other Patient Handouts: A1C, Managing Type 1 Diabetes Admission Data Admit Date/Time: 06/02/21 20:47 Attending Provider: Brad Paniagua Admit Provider: Manolo Clifton Primary Care Provider: Josh Squires III Other Providers: Edmond Alford ; Parveen Conrad Other Interventions: Discharge Summary Assessment (RN) Last Done: 06/04/21 11:25 Supervising Physician Co-Signing Physician Notes Attending attestation Pt seen and examined in concert with Dr. Hamm. In agreement with the documented findings as noted in the resident documentation with any exceptions or additions as noted here. Continues to be comfortable in bed without acute complaint. Tolerating fluid restriction blithely. On examination, S1/S2 nl RRR no MCG. CTAB. Abd NT/ND BS+ve Acute on chronic hyponatremia - nephrology consult - stable at 129 on day of discharge w/ fluid restriction and home NaCL - strongly encourage continued restriction. cut up his 32oz Cross[employer] cups in solidarity. T1DM - A1c 8.2%, resume home regimen for outpatient f/u Else see resident documentation as noted. Total attending time spent on this case on the day of discharge: 40 minutes. Resident Activity Tracking Resident Involvement: Resident Care Provided Care Provided: Adult [facility]
== END 2021-06-04 12:10 | disposition home or self-care (01) | DRG 641 ==
LOC: ED 16:56 → SUATTDRO 20:47 → 2N 20:47

== ENCOUNTER 2021-11-18 16:13 | Inpatient (IN) ==
--- NOTE | 2021-11-18 16:59 | Emergency Department Note ---
Impression & Plan Multifocal pneumonia, COPD (chronic obstructive pulmonary disease), Chronic hyponatremia, Exposure to COVID-19 virus ED Provider Note NAME: ANISHA RICE AGE: 61 SEX: M : 1960 ARRIVES VIA: Walk-In INFORMANT: Patient, ED PROVIDER(S): Niranjan Hudson MD Chief Complaint: Cough HPI: Patient did have a primary care visit on 1223 and had concern for persistent pneumonia. Patient had improvement after second course of antibiotics. The patient still on Xopenex and ipratropium. He was initially diagnosed with a pneumonia in urgent care September 11 return doxycycline. Patient continued to have some fevers thereafter went to the emergency department in September and had a CT which showed persistent pneumonia was discharged on Omnicef. 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 Patient states that the pain in his left chest has improved but that his chronic shortness of breath is relatively unchanged which is no worse than normal. The patient is a prior smoker quit over a decade ago and smoked for greater than 30 years. The patient has had a productive cough that is discolored. Patient does rely on some of the history from his at bedside as the patient is legally blind. Patient has been compliant with his medications and has been using his inhaler as well as nebulizer. Patient denies any leg swelling fevers or chills. Patient is vaccinated for COVID-19 but patient's daughter who lives with them recently tested positive for COVID-19. She is also vaccinated. Patient has any prior history of DVT or PE. Patient denies any recent surgeries or procedures. Patient believes that this productive cough ongoing for approximately 3 days has gotten no better even after beginning the Augmentin therapy. Patient does state that he has a slight headache but this is pretty typical for him. Patient does have prior history of CVA but no stroke symptoms and no recent trauma. Patient typically does take ibuprofen and Tylenol. ROS: See HPI for pertinent positives and negatives. A total of 10 systems were reviewed and otherwise negative. Past medical history: See below Surgical history: See below Social history: See below Physical Exam: GENERAL: Legally blind, NAD, wearing a mask, non-toxic. EYE EXAM: Normal conjunctiva. NECK: Supple, no nuchal rigidity, no adenopathy, non-tender. No signs of meningismus. LUNGS: Bibasilar crackles noted, slight inspiratory wheeze left upper chest. Normal chest wall mechanics. HEART: Normal sinus rhythm, no MRG. ABDOMEN: Abdomen soft, non-tender, normo-active bowel sounds, no masses, no rebound or guarding. BACK: No CVA TTP. SKIN: No rashes and no bruising. UPPER EXTREMITIES: Upper extremities are grossly normal. LOWER EXTREMITIES: Grossly normal, no edema. Negative Homans' sign bilaterally. NEURO EXAM: A&O x3, cranial nerves II-XII grossly intact, normal speech, moves all 4 extremities on command w/o issue. Differential diagnoses: Infection, dehydration, metabolic abnormality, hypo/hyperglycemia, electrolyte disturbance, anemia, hypoxia, cardiac sources, intracerebral event, toxicologic, neurologic, as well as other pathologies. Course: Patient was seen and evaluated the bedside. Full history physical exam was performed. EKG interpreted by me Normal sinus rhythm, rate of 68, normal intervals, normal axis, no ST changes or T WI. Imaging Studies: See Below Cardiac monitoring: An order was placed for continuous cardiac monitoring. The monitor shows a rate of 72 with sinus rhythm. MDM: Patient was seen due to concern for cough and persistent pneumonia symptoms. Blood work was obtained along with a chest x-ray as well as CT of the chest. Patient's blood work shows a white counts slightly elevated with some anemia. The patient does take an iron supplement denies any bright red blood but has had dark stools. Patient is heme-negative. Patient CT does show concern for multifocal pneumonia and appears to be most dominant the left side which is likely consistent with the patient's chest pain. Given the patient's recurrence of failed outpatient antibiotics with the patient would benefit from IV treatm ent. I did speak the on-call hospitalist Dr. Payne who is in agreement with [facility]. Patient was admitted to the medicine service. Procal and blood cultures were added prior to antibiotics. The patient is flu RSV and Covid negative. I did discuss the findings with the patient the patient and the patient's at bedside are in agreement with plan of care. Past Med/Surg History Medical History Abnormal CT scan of lung Angioedema Asthma uses PRN inh daily Blindness BPH (benign prostatic hyperplasia) CAD (coronary artery disease), alutiiq coronary artery Chronic diastolic CHF (congestive heart failure) pt unable to verify Chronic headache Chronic hyponatremia Chronic hyponatremia COPD (chronic obstructive pulmonary disease) DM type 1 (diabetes mellitus, type 1) Family history of colon cancer GERD (gastroesophageal reflux disease) History of angiography History of stroke History of subarachnoid hemorrhage 2013; memory/cognitive deficits (reports total of 3 strokes but only known event was in 2014 -- remaining strokes were incidental findings) Hyperlipidemia Hypertension Hypothyroidism Ischemic colitis Over 10 years ago (before 2007) Microcytic anemia Migraine LUZMA (obstructive sleep apnea) CPAP PAD (peripheral artery disease) Pneumonia Premature ventricular beats Sepsis Urinary retention Surgical History Difficult airway for intubation reports he was told he was a difficult intubation after rectal abscess surgery [place] [facility] [place] says he has been intubated since then without issues; denies problems prior to that procedure, as well. H/O colonoscopy ~2012 per patient; no polyps History of appendectomy History of eye surgery multiple History of hand surgery Hand Incision Tendon Sheath of a Finger History of rectal abscess I&D History of tonsillectomy and adenoidectomy History of transurethral resection of prostate History of vasectomy History of ventral hernia repair Family History Mother Hypertension Grandfather (Paternal) Prostate cancer Colon cancer Brother Lung cancer Brain cancer Bone cancer Kidney disease Diabetes Son Lung cancer Diabetes Father Hemorrhagic stroke Hypertension Other Breast cancer Testicular cancer Denies family history of Ovarian cancer Myocardial infarction Social History Smoking Status: Former smoker Tobacco Type: Cigarettes Age Started Using Tobacco: 16; Age Quit Using Tobacco: 49; packs per day: 1.5; Years Smoked: 38; Cigarettes Per Day: 20; Number of Years Since Quit: 11; Second Hand Exposure: No; Hx Alcohol Use: No Hx Substance Use: No Preferred Language: Romanian Communication Ability: Effective Visual Impairment: Blindness Hearing Ability: Hard of Hearing Training And Development Professional Required: No Beliefs That Will Affect Care: None marital status: Current Living Situation: Spouse and Family Current Living Situation Comment: Pt. lives w/ , daughter, and daughter's two dogs current occupational status: disabled Feels Safe at Home: Yes Safety Concerns: Feels Safe At This Time Childhood Exposure to Second-Hand Smoke: Yes Dental Care, Regularly: Yes Physical Activity Frequency: Does not Exercise Seatbelt Use: always Sunscreen Use: Yes Assistive Devices: CPAP Allergies Allergies Allergy/AdvReac Type Severity Reaction Status Date / Time lisinopril Allergy Severe " TONGUE Verified 11/18/21 18:05 SWELLS" lorazepam AdvReac Unknown Hallucinati Verified 11/18/21 18:05 ons Home Meds Home Medications Medication Instructions Recorded Confirmed acetaminophen 325 mg capsule 325 mg PO Q6H PRN 08/06/18 11/18/21 (Tylenol) lactobacillus combination no.4 3 3,000 mmu cells PO QAM 08/06/18 11/18/21 billion cell capsule (Probiotic) simethicone 125 mg chewable tablet 250 mg PO DIRECTED PRN 08/06/18 11/18/21 aspirin 81 mg tablet,delayed 81 mg PO QAM tab 06/09/19 11/18/21 release magnesium 200 mg tablet 400 mg PO QAM tab 06/09/19 11/18/21 flaxseed oil 1,200 ea MISCELLANEOUS BID 07/05/19 11/18/21 glucosamine sulfate 500 mg tablet 500 mg PO DAILY 07/05/19 11/18/21 (Glucosamine) sennosides 8.6 mg-docusate sodium 1 tab PO BID 07/21/19 11/18/21 50 mg tablet famotidine 10 mg tablet 10 mg PO QAM 05/14/20 11/18/21 insulin aspart See Rx Instructions SUBCUT QAM 12/02/20 11/18/21 (niacinamide)(U-100) 100 unit/mL(3 mL) subcutaneous pen (Fiasp FlexTouch U-100 Insulin) ferrous sulfate 325 mg (65 mg 325 mg PO BID tab 03/25/21 11/18/21 iron) tablet diclofenac sodium 1 % topical gel 2 g TOPICAL QID PRN 05/10/21 11/18/21 albuterol sulfate 90 mcg/actuation 2 puff INHALATION QID PRN 11/18/21 11/18/21 aerosol inhaler insulin detemir U-100 100 unit/mL 38 unit SUBCUT AMPM 11/18/21 11/18/21 (3 mL) subcutaneous pen (Levemir FlexTouch U-100 Insulin) nortriptyline 25 mg capsule 50 mg PO HS 11/18/21 11/18/21 Previous Rx's Medication Instructions Recorded diazepam 2 mg tablet (Valium) 2 mg PO HS PRN #30 tab 12/01/19 levalbuterol HCl 0.63 mg/3 mL 0.63 mg INHALATION Q6H PRN #360 ml 06/08/20 solution for nebulization tamsulosin 0.4 mg capsule (Flomax) 0.4 mg PO QPM #90 cap 02/28/21 promethazine 25 mg tablet 25 mg PO Q6H PRN #28 tab 03/08/21 sodium chloride 1 gram tablet 2,000 mg PO BID #60 tab 03/28/21 levothyroxine 175 mcg tablet 175 mcg PO DAILY #90 tab 04/22/21 pantoprazole 40 mg tablet,delayed 40 mg PO BID #180 tab 05/13/21 release (Protonix) atorvastatin 80 mg tablet 80 mg PO DAILY #90 tab 05/24/21 fluticasone fur. 100 mcg-umeclid 1 inh INH DAILY #180 ea 06/15/21 62.5 mcg-vilant 25 mcg inhalat.powder (Trelegy Ellipta) bumetanide 1 mg tablet 2 mg PO BID #120 tab 06/20/21 folic acid 1 mg tablet 1 mg PO BID #180 tab 06/20/21 losartan 100 mg tablet 100 mg PO QAM #90 tab 06/20/21 atenolol 50 mg tablet (Tenormin) 50 mg PO BID #60 tab 07/05/21 mometasone 0.1 % topical ointment 1 applic TOPICAL DAILY PRN #45 g 08/10/21 amlodipine 5 mg tablet 5 mg PO QAM #90 tab 09/26/21 isosorbide mononitrate 30 mg 30 mg PO QAM #90 tab 09/28/21 tablet,extended release 24 hr ipratropium bromide 0.02 % 2.5 ml INHALATION QID PRN #62.5 ml 10/13/21 solution for inhalation metoclopramide HCl 10 mg tablet 10 mg PO QID #120 tab 10/24/21 (Reglan) oxycodone-acetaminophen 5 mg-325 1 - 2 tab PO DAILY PRN #60 tab 11/10/21 mg tablet (Percocet) amoxicillin 875 mg-potassium 1 tab PO BID #20 tab 11/14/21 clavulanate 125 mg tablet (Augmentin) Results & Data (ED) Vital Signs Vital Signs - 24 hr 11/18/21 18:21 11/18/21 18:30 11/18/21 18:45 Pulse Rate 68 67 69 Pulse Rate from SpO2 Sensor 69 67 70 Respiratory Rate 12 19 20 Blood Pressure 164/83 H Blood Pressure Mean 110 Pulse Oximetry 98 97 97 11/18/21 19:00 11/18/21 19:30 11/18/21 20:00 Pulse Rate 68 67 66 Pulse Rate from SpO2 Sensor 67 66 66 Respiratory Rate 22 17 17 Blood Pressure 163/74 H 157/70 H 150/69 H Blood Pressure Mean 103 99 96 Pulse Oximetry 97 95 93 11/18/21 20:30 11/18/21 21:00 11/18/21 21:30 Pulse Rate 78 74 70 Pulse Rate from SpO2 Sensor 78 73 70 Respiratory Rate 19 16 15 Blood Pressure 165/70 H 160/81 H 150/73 H Blood Pressure Mean 101 107 98 Pulse Oximetry 97 95 96 11/18/21 22:00 Pulse Rate 73 Pulse Rate from SpO2 Sensor 74 Respiratory Rate 12 Blood Pressure 125/44 L Blood Pressure Mean 71 Pulse Oximetry 96 Home Medications Current Medication List: was personally reviewed by me Laboratory Data Attestation: I reviewed the patient's lab results. Result diagrams: 11/19/21 05:10 11/19/21 13:57 Lab Results 11/18/21 11/18/21 11/18/21 Range/Units 18:05 18:05 18:58 WBC 11.44 H (4.8-10.8) K/uL RBC 2.79 L (4.7-6.1) M/uL Hgb 8.2 L (14.0-18.0) g/dL Hct 25.0 L (42-52) % MCV 89.6 (80-100) fL MCH 29.4 (25-34) pg MCHC 32.8 (32-36) g/dL RDW Std Deviation 49.1 H (36.4-46.3) fL RDW Coeff of Analisa 14.7 H (11.5-14.5) % Plt Count 444 H (130-400) K/uL MPV 9.1 (7.4-10.4) fL Immature Gran % (Auto) 0.3 % Neut % (Auto) 75.1 % Lymph % (Auto) 14.7 % Hampton % (Auto) 8.0 % Eos % (Auto) 1.7 % Baso % (Auto) 0.2 % Neut # (Auto) 8.59 H (1.4-6.5) K/uL Lymph # (Auto) 1.68 (1.2-3.4) K/uL Hampton # (Auto) 0.92 H (0.11-0.59) K/uL Eos # (Auto) 0.20 (0-0.5) K/uL Baso # (Auto) 0.02 (0-0.2) K/uL Immature Gran # (Auto) 0.03 H (0.00-0.02) K/uL Sodium 127 L (136-145) mmol/L Potassium 4.1 (3.5-5.1) mmol/L Chloride 91 L (98-107) mmol/L Carbon Dioxide 28 (21-32) mmol/L Anion Gap 8 (3-11) BUN 24 H (6-23) mg/dl Creatinine 1.10 (0.6-1.4) mg/dl Est Cr Clr Drug Dosing 69.6 ml/min Est GFR ( Amer) 82.9 ml/min Est GFR (Non-Af Amer) 71.6 ml/min BUN/Creatinine Ratio 21.8 H (10-20) Glucose 159 H (70-99(Fasting)) mg/dl POC Glucose (70-99) mg/dl Calcium 8.9 (8.5-10.1) mg/dl Total Bilirubin 0.3 (0.2-1.0) mg/dl AST 16 (13-39) U/L ALT 16 (7-52) U/L Alkaline Phosphatase 246 H (34-104) U/L Total Protein 7.6 (6.0-8.3) gm/dl Albumin 3.5 (3.4-5.0) gm/dl Globulin 4.1 H (2.5-4.0) gm/dl Albumin/Globulin Ratio 0.9 (0.9-2) Procalcitonin (0-0.5) ng/ml Urine Color Yellow Urine Appearance Clear (Clear) Urine pH 5.5 (4.5-7.5) Ur Specific Martin 1.007 (1.000-1.030) Urine Protein Trace H (Negative) Urine Glucose (UA) Negative (Negative) Urine Ketones Negative (Negative) Urine Blood Negative (Negative) Urine Nitrite Negative (Negative) Urine Bilirubin Negative (Negative) Urine Urobilinogen Negative (Negative) Ur Leukocyte Esterase Negative (Negative) Urine WBC (Auto) 0 (0-5) /hpf Urine RBC (Auto) 0-4 (0-4) /hpf U Hyaline Cast (Auto) 0 (0-5) /lpf U Epithel Cells (Auto) 0-5 (0-5) /lpf Urine Bacteria (Auto) Negative (Negative) SARS-CoV-2 (PCR) (Negative) Influenza Type A (PCR) (Neg) Influenza Type B (PCR) (Neg) RSV (RT-PCR) (Neg) 11/18/21 11/18/21 11/18/21 Range/Units 18:58 20:45 21:31 WBC (4.8-10.8) K/uL RBC (4.7-6.1) M/uL Hgb (14.0-18.0) g/dL Hct (42-52) % MCV (80-100) fL MCH (25-34) pg MCHC (32-36) g/dL RDW Std Deviation (36.4-46.3) fL RDW Coeff of Analisa (11.5-14.5) % Plt Count (130-400) K/uL MPV (7.4-10.4) fL Immature Gran % (Auto) % Neut % (Auto) % Lymph % (Auto) % Hampton % (Auto) % Eos % (Auto) % Baso % (Auto) % Neut # (Auto) (1.4-6.5) K/uL Lymph # (Auto) (1.2-3.4) K/uL Hampton # (Auto) (0.11-0.59) K/uL Eos # (Auto) (0-0.5) K/uL Baso # (Auto) (0-0.2) K/uL Immature Gran # (Auto) (0.00-0.02) K/uL Sodium (136-145) mmol/L Potassium (3.5-5.1) mmol/L Chloride (98-107) mmol/L Carbon Dioxide (21-32) mmol/L Anion Gap (3-11) BUN (6-23) mg/dl Creatinine (0.6-1.4) mg/dl Est Cr Clr Drug Dosing ml/min Est GFR ( Amer) ml/min Est GFR (Non-Af Amer) ml/min BUN/Creatinine Ratio (10-20) Glucose (70-99(Fasting)) mg/dl POC Glucose 201 H (70-99) mg/dl Calcium (8.5-10.1) mg/dl Total Bilirubin (0.2-1.0) mg/dl AST (13-39) U/L ALT (7-52) U/L Alkaline Phosphatase (34-104) U/L Total Protein (6.0-8.3) gm/dl Albumin (3.4-5.0) gm/dl Globulin (2.5-4.0) gm/dl Albumin/Globulin Ratio (0.9-2) Procalcitonin 0.33 (0-0.5) ng/ml Urine Color Urine Appearance (Clear) Urine pH (4.5-7.5) Ur Specific Martin (1.000-1.030) Urine Protein (Negative) Urine Glucose (UA) (Negative) Urine Ketones (Negative) Urine Blood (Negative) Urine Nitrite (Negative) Urine Bilirubin (Negative) Urine Urobilinogen (Negative) Ur Leukocyte Esterase (Negative) Urine WBC (Auto) (0-5) /hpf Urine RBC (Auto) (0-4) /hpf U Hyaline Cast (Auto) (0-5) /lpf U Epithel Cells (Auto) (0-5) /lpf Urine Bacteria (Auto) (Negative) SARS-CoV-2 (PCR) NEGATIVE (Negative) Influenza Type A (PCR) Negative (Neg) Influenza Type B (PCR) Negative (Neg) RSV (RT-PCR) Negative (Neg) Administered Medications Amlodipine Besylate (Amlodipine Besylate 5 Mg Tab) [facility] [place]: 12/19/21 08:59 Last Admin: 11/19/21 08:47 Dose: 5 mg Documented by: [id number] Aspirin (Aspirin 81 Mg Ectab) 81 mg PO [facility] Stop: 12/19/21 08:59 Last Admin: 11/19/21 08:46 Dose: 81 mg Documented by: [id number] Atenolol (Atenolol 50 Mg Tablet) 50 mg PO BID [facility] Stop: 12/19/21 08:59 Last Admin: 11/19/21 08:46 Dose: 50 mg Documented by: [id number] Atorvastatin Calcium (Atorvastatin 40 Mg Tab) 80 mg PO DAILY [facility] Stop: 12/19/21 08:59 Last Admin: 11/19/21 08:46 Dose: 80 mg Documented by: [id number] Bumetanide (Bumetanide 1 Mg Tab) 2 mg PO [id number] [facility] Stop: 12/19/21 08:59 Last Admin: 11/19/21 08:45 Dose: 2 mg Documented by: [id number] Enoxaparin Sodium (Enoxaparin Inj 40 Mg/0.4 Ml Syr) 40 mg SQ Q24H [facility] Stop: 12/18/21 22:44 Last Admin: 11/19/21 02:04 Dose: 40 mg Documented by: [id number] Famotidine (Famotidine 10 Mg Tablet) 10 [facility] [place]: 12/19/21 08:59 Last Admin: 11/19/21 08:47 Dose: 10 mg Documented by: [id number] Folic Acid (Folic Acid 1 Mg Tab) 1 mg PO BID [facility] Stop: 12/19/21 08:59 Last Admin: 11/19/21 08:45 Dose: 1 mg Documented by: [id number] Piperacillin Sod/Tazobactam (Sod 3.375 gm/ Dextrose) 115 mls @ 28.75 mls/hr IV Q8H [facility]; Protocol Stop: 11/26/21 03:59 Last Infusion: 11/19/21 16:28 Dose: 0 mls/hr Documented by: [id number] Admin: 11/19/21 12:27 Dose: 28.8 mls/hr Documented by: [id number] Infusion: 11/19/21 09:13 Dose: 0 mls/hr Documented by: [id number] Admin: 11/19/21 04:42 Dose: 28.8 mls/hr Documented by: [id number] Isosorbide Mononitrate (Isosorbide Hampton Extended Rel 30 Mg Tabcr) 30 mg PO QAM [facility] Stop: 12/19/21 08:59 Last Admin: 11/19/21 08:47 Dose: 30 mg Documented by: [id number] Levalbuterol HCl (Levalbuterol Hcl 0.63 Mg/3 Ml Neb) 0.63 mg INH Q6H PRN; Protocol PRN Reason: shortness of breath or wheezing Stop: 12/18/21 22:44 Last Admin: 11/19/21 00:53 Dose: 0.63 mg Documented by: [id number] Losartan Potassium (Losartan Potassium 50 Mg Tab) 100 mg PO QAM SIL[facility]INA Stop: 12/19/21 08:59 Last Admin: 11/19/21 08:44 Dose: 100 mg Documented by: [id number] Metoclopramide HCl (Metoclopramide Hcl 10 Mg Tablet) 10 mg PO ACHS [facility] Stop: 12/19/21 07:29 Last Admin: 11/19/21 12:26 Dose: 10 mg Documented by: [id number] Admin: 11/19/21 08:11 Dose: 10 mg Documented by: [id number] Oxycodone/Acetaminophen (Oxycodone/Acetaminophen 5mg/325mg Tab) 1 tab PO DAILY PRN PRN Reason: Pain Stop: 12/02/21 22:44 Last Admin: 11/19/21 04:33 Dose: 1 tab Documented by: [id number] Pantoprazole Sodium (Pantoprazole 40 Mg Tab) 40 mg PO BID SIL[facility]INA Stop: 12/19/21 08:59 Last Admin: 11/19/21 08:45 Dose: 40 mg Documented by: [id number] Senna/Docusate Sodium (Docusate Sodium/Senna 50/8.6mg Tab) 1 tab PO BID SIL[facility]INA Stop: 12/19/21 08:59 Last Admin: 11/19/21 08:45 Dose: 1 tab Documented by: [id number] Sodium Chloride (Sodium Chloride 1 Gm Tablet) 2 gm PO BID SIL[facility] Stop: 12/19/21 08:59 Last Admin: 11/19/21 08:47 Dose: 2 gm Documented by: [id number] Umeclidinium/Vilanterol (Umeclidinium/Vilanterol 62.5/25mcg 7 Puffs/Inhaler) 1 puffs INH DAILY SIL[facility] Stop: 12/19/21 08:59 Last Admin: 11/19/21 09:02 Dose: 1 puffs Documented by: [id number] Discontinued Medications Acetaminophen (Acetaminophen 500 Mg Tab) 1,000 mg PO NOW STA Stop: 11/18/21 17:24 Last Admin: 11/18/21 18:01 Dose: 1,000 mg Documented by: [id number] Bumetanide (Bumetanide 1 Mg Tab) 2 mg PO NOW ONE Stop: 11/19/21 12:34 Last Admin: 11/19/21 14:23 Dose: 2 mg Documented by: [id number] Levofloxacin/Dextrose (Levaquin/D5w) 750 mg in 150 mls @ 100 mls/hr IV NOW STA Stop: 11/18/21 22:56 Last Infusion: 11/18/21 23:55 Dose: 0 mls/hr Documented by: [id number] Admin: 11/18/21 21:36 Dose: 100 mls/hr Documented by: [id number] Azithromycin 500 mg/ Dextrose 255 mls @ 127.5 mls/hr IV NOW ONE Stop: 11/19/21 01:29 Last Infusion: 11/19/21 04:54 Dose: 0 mls/hr Documented by: [id number] Admin: 11/19/21 00:37 Dose: 127.5 mls/hr Documented by: [id number] Piperacillin Sod/Tazobactam Sod (Zosyn) 4.5 gm in 120 mls @ 240 mls/hr IV NOW STA; Protocol Stop: 11/18/21 23:34 Last Infusion: 11/19/21 00:25 Dose: 0 mls/hr Documented by: [id number] Admin: 11/18/21 23:55 Dose: 240 mls/hr Documented by: [id number] Insulin Human Regular 10 units (/ Syringe) 10 mls @ 20 mls/min IV ONE ONE Stop: 11/19/21 07:01 Last Admin: 11/19/21 08:12 Dose: 20 mls/min Documented by: [id number] Cosigned by: [id number] Ibuprofen (Ibuprofen 200 Mg Tab) 400 mg PO NOW STA Stop: 11/18/21 17:24 Last Admin: 11/18/21 18:02 Dose: 400 mg Documented by: [id number] Insulin Aspart (Insulin Aspart Per Unit) 0 units SC ACHS [facility]IL[facility]INA Stop: 11/19/21 15:00 Last Admin: 11/19/21 14:04 Dose: 5 units Documented by: [id number] Cosigned by: [id number] Admin: 11/19/21 09:15 Dose: 15 units Documented by: [id number] Cosigned by: [id number] Admin: 11/18/21 23:21 Dose: 11 units Documented by: [id number] Cosigned by: [id number] Insulin Aspart (Insulin 70% Aspart Protamine/30% Aspart) 15 units SC ONE ONE Stop: 11/19/21 11:00 Last Admin: 11/19/21 11:16 Dose: 15 units Documented by: [id number] Cosigned by: [id number] Insulin Detemir (Insulin Detemir Flexpen/Flex Touch 100 Units/Ml 3ml) 38 units SQ BID [facility]IL[facility]INA Stop: 12/18/21 22:44 Last Admin: 11/19/21 08:48 Dose: 38 units Documented by: [id number] Cosigned by: [id number] Admin: 11/19/21 02:06 Dose: 38 units Documented by: [id number] Cosigned by: [id number] Ioversol (Optiray 320 125ml) 116 ml IV ONCE ONE Stop: 11/18/21 20:17 Last Admin: 11/18/21 20:20 Dose: 116 ml Documented by: [id number] Levothyroxine Sodium (Levothyroxine Sodium 175 Mcg Tablet) 175 mcg PO DAILYBB [facility]IL[facility]INA Stop: 12/19/21 06:29 Last Admin: 11/19/21 08:12 Dose: 175 mcg Documented by: [id number] Imaging Data Radiologist's Impression: Chest X-Ray 11/18/21 16:21 XR chest 1V portable CLINICAL HISTORY: cough TECHNIQUE: Single frontal radiograph of the chest was obtained. Comparison: Comparison is made to chest 2 views 10/01/[address] chest 11/14/2021 FINDINGS: No lines and tubes are seen. The cardiomediastinal silhouette is normal. Multifocal airspace opacities are seen in the bilateral lungs. No evidence of pleural effusion or pneumothorax. IMPRESSION: Multifocal opacities in the bilateral lungs compatible with pneumonia. ACT 112: Negative or not required by law. Electronically signed by: Dharmesh Hidalgo M.D. 11/18/2021 5:22 PM Chest X-Ray 11/18/21 16:21 XR chest 1V portable CLINICAL HISTORY: cough TECHNIQUE: Single frontal radiograph of the chest was obtained. Comparison: Comparison is made to chest 2 views 10/01/[address] chest 11/14/2021 FINDINGS: No lines and tubes are seen. The cardiomediastinal silhouette is normal. Multifocal airspace opacities are seen in the bilateral lungs. No evidence of pleural effusion or pneumothorax. IMPRESSION: Multifocal opacities in the bilateral lungs compatible with pneumonia. ACT 112: Negative or not required by law. Electronically signed by: Dharmesh Hidalgo M.D. 11/18/2021 5:22 PM Chest CTA 11/18/21 17:23 CT angio chest PE protocol CLINICAL HISTORY: cough, chest pain L side, h/o emphysema recur PNA TECHNIQUE: Multidetector row helical CT of the chest was performed. Coronal and sagittal reformations were obtained. Coronal and sagittal MIPS were obtained from the axial data set and were submitted for review. Automated dose lowering techniques and/or adjustment according to patient size were utilized for this exam. Comparison: Comparison is made to CT chest 11/14/2021 FINDINGS: Lungs and pleura: Redemonstration of consolidative of opacities in the bilateral lungs. A few pulmonary cysts are seen. Heart and pericardium: Heart size is normal. No pericardial effusion. Vessels: No evidence of pulmonary embolism. Mediastinum and cristopher: Subcentimeter lymph nodes are seen. Chest wall and lower neck: Gynecomastia is noted bilaterally. Abdomen: Unremarkable. Bones: Unremarkable. IMPRESSION: 1. No evidence of pulmonary embolism. 2. Redemonstration of multiple foci of airspace opacities compatible with pneumonia. ACT 112: Negative or not required by law. Electronically signed by: Dharmesh Hidalgo M.D. 11/18/2021 8:35 PM Discharge Plan Visit Data Chief Complaint: Illness Stated Complaint: LONG LASTING PNEUMONIA, REF BY DOC ED Provider: Niranjan Hudson Discharge Problem: Multifocal pneumonia, COPD (chronic obstructive pulmonary disease), Chronic hyponatremia, Exposure to COVID-19 virus Patient Disposition: Admitted As Inpatient Discharge Instructions Interventions: ED Discharge Assessment Last Done: 11/18/21 22:44 Discharge Problem: COPD (chronic obstructive pulmonary disease) Qualifiers: COPD type: unspecified COPD Qualified Code(s): J44.9 - Chronic obstructive pulmonary disease, unspecified
[2021-11-18] MEDS ORDERED: IBUPROFEN 200 MG TAB PO STA (17:23)
[2021-11-18] MEDS ORDERED: ACETAMINOPHEN 500 MG TAB PO STA (17:23)
--- NOTE | 2021-11-18 17:23 | XRay Report ---
XR chest 1V portable CLINICAL HISTORY: cough TECHNIQUE: Single frontal radiograph of the chest was obtained. Comparison: Comparison is made to chest 2 views 10/01/[address] chest 11/14/2021 FINDINGS: No lines and tubes are seen. The cardiomediastinal silhouette is normal. Multifocal airspace opacitie s are seen in the bilateral lungs. No evidence of pleural effusion or pneumothorax. IMPRESSION: Multifocal opacities in the bilateral lungs compatible with pneumonia. ACT 112: Negative or not required by law. Electronically signed by: Dharmesh Hidalgo M.D. 11/18/2021 5:22 PM
[2021-11-18 18:18] LABS: Basophils # (auto) 0.02 K/uL (0-0.2); Basophils % (auto) 0.2 %; Eosinophils % (auto) 1.7 %; Hemoglobin 8.2 g/dL (14.0-18.0); Immature Granulocytes # (auto) 0.03 K/uL (0.00-0.02); Immature Granulocytes % (auto) 0.3 %; Lymphocytes # (auto) 1.68 K/uL (1.2-3.4); Lymphocytes % (auto) 14.7 %; Mean Corpuscular Hemoglobin 29.4 pg (25-34); Mean Corpuscular Hgb Conc 32.8 g/dL (32-36); Mean Corpuscular Volume 89.6 fL (80-100); Mean Platelet Volume 9.1 fL (7.4-10.4); Monocytes # (auto) 0.92 K/uL (0.11-0.59); Neutrophils # (auto) 8.59 K/uL (1.4-6.5); Neutrophils % (auto) 75.1 %; Platelet Count 444 K/uL (130-400); RDW Coefficient of Variation 14.7 % (11.5-14.5); RDW Standard Deviation 49.1 fL (36.4-46.3); Red Blood Count 2.79 M/uL (4.7-6.1); White Blood Count 11.44 K/uL (4.8-10.8)
[2021-11-18 18:42] LABS: Albumin Globulin Ratio 0.9 (0.9-2); Albumin Level 3.5 gm/dl (3.4-5.0); BUN Creatinine Ratio 21.8 (10-20); Bilirubin,Total 0.3 mg/dl (0.2-1.0); Calcium 8.9 mg/dl (8.5-10.1); Creatinine Clr Calc Pharmacy 69.6 ml/min; Est GFR (African American) 82.9 ml/min; Est GFR (Non-African American) 71.6 ml/min; Globulin 4.1 gm/dl (2.5-4.0); Potassium 4.1 mmol/L (3.5-5.1); Total Protein 7.6 gm/dl (6.0-8.3)
[2021-11-18 19:13] LABS: Appearance Urine Clear (Clear); Bacteria Urine Automated Negative (Negative); Bilirubin Urine Negative (Negative); Blood Urine Negative (Negative); Cast Urine Automated 0 /lpf (0-5); Color Urine Yellow; Epithelial Cell Urine Auto 0-5 /lpf (0-5); Glucose Urine UA Negative (Negative); Ketones Urine Negative (Negative); Leukocyte Esterase Urine Negative (Negative); Nitrite Urine Negative (Negative); Protein Urine Trace (Negative); RBC Urine Automated 0-4 /hpf (0-4); Specific Gravity Urine 1.007 (1.000-1.030); Urobilinogen Urine Negative (Negative); WBC Urine Automated 0 /hpf (0-5); pH Urine 5.5 (4.5-7.5)
[2021-11-18 19:41] LABS: Influenza A virus by PCR Negative (Neg); Influenza B virus by PCR Negative (Neg); RSV by PCR Negative (Neg); SARS CoV2 RNA(COVID-19) InHosp NEGATIVE (Negative)
[2021-11-18] MEDS ORDERED: OPTIRAY 320 125ml IV ONE (20:16)
--- NOTE | 2021-11-18 20:37 | CT Scan Report ---
CT angio chest PE protocol CLINICAL HISTORY: cough, chest pain L side, h/o emphysema recur PNA TECHNIQUE: Multidetector row helical CT of the chest was performed. Coronal and sagittal reformations were obtained. Coronal and sagittal MIPS were obtained from the axial data set and were submitted fo r review. Automated dose lowering techniques and/or adjustment according to patient size were utiliz ed for this exam. Comparison: Comparison is made to CT chest 11/14/2021 FINDINGS: Lungs and pleura: Redemonstration of consolidative of opacities in the bilateral lungs. A few pulmona ry cysts are seen. Heart and pericardium: Heart size is normal. No pericardial effusion. Vessels: No evidence of pulmonary embolism. Mediastinum and cristopher: Subcentimeter lymph nodes are seen. Chest wall and lower neck: Gynecomastia is noted bilaterally. Abdomen: Unremarkable. Bones: Unremarkable. IMPRESSION: 1. No evidence of pulmonary embolism. 2. Redemonstration of multiple foci of airspace opacities compatible with pneumonia. ACT 112: Negative or not required by law. Electronically signed by: Dharmesh Hidalgo M.D. 11/18/2021 8:35 PM
[2021-11-18] MEDS ORDERED: levoFLOXacin/D5W 750 MG/150 ML BAG IV STA (21:27)
--- NOTE | 2021-11-18 22:08 | History & Physical Report ---
Date of Service November 18, 2021 Assessment & Plan (1) Pneumonia: Plan: 61yo male with multiple medical comorbidities presenting with left sided chest discomfort. He has had ongoing PNA since August 2021 and has completed two courses of antibiotics (Doxycycline and Cefdinir) and was started on Augmentin on 11/14/21. Patient with history of aspiration pneumonia n the past. CT appears to have worsening of left sided infiltrate when compared to prior study from 11/14/21 Patient is afebrile at present, HD stable. No respiratory distress. Adequate oxygenation on room air. Mildly elevated WBC count at 11.44 with neutrophil predominance Procalcitonin = 0.33 -Admit to medical -Follow blood cultures sent from ER -Sputum gram stain and culture -Check MRSA nares -Incentive spirometry -Received Levaquin in ER - will continue antibiotics with Zosyn 4.5gm IV q 8 giv en history of aspiration pneumonia, longstanding COPD as well as Azithromycin for atypical coverage -Check Fungitell -Tylenol PRN pain or fever -Zofran PRN nausea -Consider Pulmonary consultation (2) Exposure to COVID-19 virus: Plan: Patient is fully vaccinated + booster. Exposed to Covid-19 by family member who lives in the home. Last contact was today 11/18/21. PCR testing today is NEGATIVE. -Patient to remain on isolation during hospital stay -Recommend repeat testing at least 5 days after last exposure (3) Chronic hyponatremia: Plan: Na presently 127. Patient with chronic hyponatremia with baseline 125-128. He is asymptomatic. -Continue to monitor -Continue home salt tabs - 2gm po BID (4) COPD (chronic obstructive pulmonary disease): Plan: Chronic. Stable. Patient denies worsening SOB, wheeze. -Continue Trelegy -Continue Xopenex -Continue Ipratropium as needed -Albuterol as needed -Hold Fluticasone in setting of PNA (5) Insulin dependent diabetes mellitus: Plan: Type I DM -Continue home insulin -Goal 100 - 140 (6) BPH (benign prostatic hyperplasia): Plan: Chronic. Stable on medications -Continue Flomax 0.4mg po daily -Monitor UOP (7) Chronic diastolic CHF (congestive heart failure): Plan: Chronic. Stable. Does not appear to be acutely decompensated -Continue home regimen - Losartan, Isosorbide mononitrate, Atenolol, Bumex (8) Hypothyroidism: Plan: Chronic -Continue Synthroid (9) CAD (coronary atherosclerotic disease): Plan: Chronic. -Continue home medications, ASA, Atorvastatin, Atenolol, Losartan (10) CKD (chronic kidney disease) stage 2, GFR 60-89 ml/min: Plan: Near baseline -Avoid nephrotoxic agents -Renal dosing where needed -Montior renal function (11) Depression: Plan: Chronic -Continue Valium qHS -Continue Nortriptyline at home dose (12) Essential hypertension: Plan: Chronic. Blood pressure stable presently at 125/44 -Continue Losartan, Amlodipine, Atenolol -Continue to monitor (13) PAD (peripheral artery disease): Plan: Chronic. Stable -Continue ASA -Continue Atorvastatin (14) Hyperlipidemia: Plan: Chronic -Continue Atorvastatin (15) GERD (gastroesophageal reflux disease): Plan: Chronic. Stable on medications -Continue Protonix 40mg po BID -Continue Pepcid 10mg po qAM Plan: F/E/N - Heplock. Monitor electrolytes, Na as above, AHA/CC diet as tolerated Ppx - Lovenox Code - Conditional - no intubation or mechanical ventilation, CPR ok. No prolonged care. History of Present Illness Chief Complaint: pneumonia Primary Care Provider: Josh Squires III, CRNP Sam Larson is a pleasant 61yo C male with multiple medical comorbidities to include CAD, CHF, COPD, DM-I, HTN, HLP, LUZMA. Patient has had a prolonged course of PNA. He first presented to [facility] on 09/11/21 with complaint of fever, chills, cough. He had a CXR performed which revealed a RLL infiltrate. His Covid-19 test and influenza were NEGATIVE. He was prescribed Doxycycline 100mg po BID x 10 day course which he completed without difficulty. He was seen in the ER on 10/01/21 with complaint of fever and cough. He had a CTA of the chest which revealed RML PNA. He was prescribed Cefdinir 300mg po BID x 10 day course which he completed. Patient has had some left sided pleuritic chest discomfort ongoing for the last 4-5 days. He first noticed the chest pain when he was bending over to pick something up. Since then it occurs with deep breathing, sometimes with movement. It is improved now in comparison to 3 days ago but is still present. He has persistent cough which is productive for thick green/yellow sputum. No hemoptysis. He has frequent nausea with one episode of non-bloody emesis as well as elevated temperatures - states that his baseline body temperature is 97.6 and he has been running 99's. He had a CT of the Chest ordered by Dr. Orosco completed on 11/14/21 which revealed partial clearing of RML consolidation when compared to study from 10/01/21. Extensive patchy/nodular airspace consolidation is seen in both lungs typical for infectious/inflammatory pneumonitis. He was started on Augmentin on 11/14/21 and has been taking as prescribed. Patient's daughter recently tested POSITIVE for Covid-19. She lives with angel rocha and his . They have been trying to remain in the home but have not been quarantining. Patient is fully vaccinated + Booster. Last contact with his daughter was today 11/18/21. No additional complaints at this time. Er Course: Levaquin Allergies Allergy/AdvReac Type Severity Reaction Status Date / Time lisinopril Allergy Severe " TONGUE Verified 11/18/21 18:05 SWELLS" lorazepam AdvReac Unknown Hallucinati Verified 11/18/21 18:05 ons Home Medications Medication Instructions Recorded Confirmed Type acetaminophen 325 mg capsule 325 mg PO Q6H PRN 08/06/18 11/18/21 History (Tylenol) lactobacillus combination no.4 3 3,000 mmu cells PO QAM 08/06/18 11/18/21 History billion cell capsule (Probiotic) simethicone 125 mg chewable tablet 250 mg PO DIRECTED PRN 08/06/18 11/18/21 History aspirin 81 mg tablet,delayed 81 mg PO QAM tab 06/09/19 11/18/21 History release magnesium 200 mg tablet 400 mg PO QAM tab 06/09/19 11/18/21 History flaxseed oil 1,200 ea MISCELLANEOUS BID 07/05/19 11/18/21 History glucosamine sulfate 500 mg tablet 500 mg PO DAILY 07/05/19 11/18/21 History (Glucosamine) sennosides 8.6 mg-docusate sodium 1 tab PO BID 07/21/19 11/18/21 History 50 mg tablet diazepam 2 mg tablet (Valium) 2 mg PO HS PRN #30 tab 12/01/19 11/18/21 Rx famotidine 10 mg tablet 10 mg PO QAM 05/14/20 11/18/21 History levalbuterol HCl 0.63 mg/3 mL 0.63 mg INHALATION Q6H PRN #360 ml 06/08/20 11/18/21 Rx solution for nebulization insulin aspart See Rx Instructions SUBCUT QAM 12/02/20 11/18/21 History (niacinamide)(U-100) 100 unit/mL(3 mL) subcutaneous pen (Fiasp FlexTouch U-100 Insulin) tamsulosin 0.4 mg capsule (Flomax) 0.4 mg PO QPM #90 cap 02/28/21 11/18/21 Rx promethazine 25 mg tablet 25 mg PO Q6H PRN #28 tab 03/08/21 11/18/21 Rx ferrous sulfate 325 mg (65 mg 325 mg PO BID tab 03/25/21 11/18/21 History iron) tablet sodium chloride 1 gram tablet 2,000 mg PO BID #60 tab 03/28/21 11/18/21 Rx levothyroxine 175 mcg tablet 175 mcg PO DAILY #90 tab 04/22/21 11/18/21 Rx diclofenac sodium 1 % topical gel 2 g TOPICAL QID PRN 05/10/21 11/18/21 History pantoprazole 40 mg tablet,delayed 40 mg PO BID #180 tab 05/13/21 11/18/21 Rx release (Protonix) atorvastatin 80 mg tablet 80 mg PO DAILY #90 tab 05/24/21 11/18/21 Rx fluticasone fur. 100 mcg-umeclid 1 inh INH DAILY #180 ea 06/15/21 11/18/21 Rx 62.5 mcg-vilant 25 mcg inhalat.powder (Trelegy Ellipta) bumetanide 1 mg tablet 2 mg PO BID #120 tab 06/20/21 11/18/21 Rx folic acid 1 mg tablet 1 mg PO BID #180 tab 06/20/21 11/18/21 Rx losartan 100 mg tablet 100 mg PO QAM #90 tab 06/20/21 11/18/21 Rx atenolol 50 mg tablet (Tenormin) 50 mg PO BID #60 tab 07/05/21 11/18/21 Rx mometasone 0.1 % topical ointment 1 applic TOPICAL DAILY PRN #45 g 08/10/21 11/18/21 Rx amlodipine 5 mg tablet 5 mg PO QAM #90 tab 09/26/21 11/18/21 Rx isosorbide mononitrate 30 mg 30 mg PO QAM #90 tab 09/28/21 11/18/21 Rx tablet,extended release 24 hr ipratropium bromide 0.02 % 2.5 ml INHALATION QID PRN #62.5 ml 10/13/21 11/18/21 Rx solution for inhalation metoclopramide HCl 10 mg tablet 10 mg PO QID #120 tab 10/24/21 11/18/21 Rx (Reglan) oxycodone-acetaminophen 5 mg-325 1 - 2 tab PO DAILY PRN #60 tab 11/10/21 11/18/21 Rx mg tablet (Percocet) amoxicillin 875 mg-potassium 1 tab PO BID #20 tab 11/14/21 11/18/21 Rx clavulanate 125 mg tablet (Augmentin) albuterol sulfate 90 mcg/actuation 2 puff INHALATION QID PRN 11/18/21 11/18/21 History aerosol inhaler insulin detemir U-100 100 unit/mL 38 unit SUBCUT AMPM 11/18/21 11/18/21 History (3 mL) subcutaneous pen (Levemir FlexTouch U-100 Insulin) nortriptyline 25 mg capsule 50 mg PO HS 11/18/21 11/18/21 History Past Med/Surg History Medical History (Updated 11/18/21 @ 23:10 by Cammy Payne DO) Abnormal CT scan of lung Angioedema Asthma uses PRN inh daily Blindness BPH (benign prostatic hyperplasia) CAD (coronary artery disease), [place] coronary artery Chronic diastolic CHF (congestive heart failure) pt unable to verify Chronic headache Chronic hyponatremia Chronic hyponatremia COPD (chronic obstructive pulmonary disease) DM type 1 (diabetes mellitus, type 1) Family history of colon cancer GERD (gastroesophageal reflux disease) History of angiography History of stroke History of subarachnoid hemorrhage 2013; memory/cognitive deficits (reports total of 3 strokes but only known event was in 2013 -- remaining strokes were incidental findings) Hyperlipidemia Hypertension Hypothyroidism Ischemic colitis Over 10 years ago (before 2007) Microcytic anemia Migraine LUZMA (obstructive sleep apnea) CPAP PAD (peripheral artery disease) Pneumonia Premature ventricular beats Sepsis Urinary retention Surgical History Difficult airway for intubation reports he was told he was a difficult intubation after rectal abscess [place] [facility] [place] says he has been intubated since then without issues; denies problems prior to that procedure, as well. H/O colonoscopy ~2012 per patient; no polyps History of appendectomy History of eye surgery multiple History of hand surgery Hand Incision Tendon Sheath of a Finger History of rectal abscess I&D History of tonsillectomy and adenoidectomy History of transurethral resection of prostate History of vasectomy History of ventral hernia repair Family History Mother Hypertension Grandfather (Paternal) Prostate cancer Colon cancer Brother Lung cancer Brain cancer Bone cancer Kidney disease Diabetes Son Lung cancer Diabetes Father Hemorrhagic stroke Hypertension Other Breast cancer Testicular cancer Denies family history of Ovarian cancer Myocardial infarction Social History Smoking Status: Former smoker Tobacco Type: Cigarettes Age Started Using Tobacco: 16; Age Quit Using Tobacco: 49; packs per day: 1.5; Years Smoked: 38; Cigarettes Per Day: 20; Number of Years Since Quit: 11; Second Hand Exposure: No; Hx Alcohol Use: No Hx Substance Use: No Preferred Language: Sinhala Communication Ability: Effective Visual Impairment: Blindness Hearing Ability: Hard of Hearing Hazardous Materials Waste Technician Required: No Beliefs That Will Affect Care: None marital status: Current Living Situation: Spouse and Family Current Living Situation Comment: Pt. lives w/ , daughter, and daughter's two dogs current occupational status: disabled Feels Safe at Home: Yes Childhood Exposure to Second-Hand Smoke: Yes Dental Care, Regularly: Yes Physical Activity Frequency: Does not Exercise Seatbelt Use: always Sunscreen Use: Yes Assistive Devices: Cane Review of Systems Review of Systems: All systems reviewed & are unremarkable except as noted in HPI & below Patient denies abdominal pain, constipation, dysuria Physical Exam Physical Exam: General: patient resting comfortably, NAD, non-toxic in appearance, AA&O x 4, blind Skin: warm, dry, intact, no rashes or lesions HEENT: NC/AT, PERRL, EOMI, anicteric sclera, conjunctiva without injection, external ear normal to inspection and nontender, nares patent, moist mucus membranes, dentition intact, no oropharyngeal lesions, neck supple, trachea midline, no LAD, no thyromegaly, no JVD Heart: +S1/S2, regular, no m/r/g Lungs: diminished breath sounds bilaterally, crackles in right mid lung field, no wheezing Abd: +BS, soft, NT/ND, no masses/organomegaly/ascites Ext: warm, 2+ pulses in UE/LE bilaterally, no clubbing/cyanosis, 1+ edema of bilateral LE Neuro: nonfocal, patient AA&O x 4, speech intact, no facial droop, moving all extremities on command with equal strength 5/5 Results & Data Results & Data ([facility]) Vital Signs (Past 12 Hours) Vital Signs Temp Pulse Resp BP Pulse Ox 11/18/21 21:30 70 15 150/73 H 96 11/18/21 21:00 74 16 160/81 H 95 11/18/21 20:30 78 19 165/70 H 97 11/18/21 20:00 66 17 150/69 H 93 11/18/21 19:30 67 17 157/70 H 95 11/18/21 19:00 68 22 163/74 H 97 11/18/21 18:45 69 20 97 11/18/21 18:30 67 19 164/83 H 97 11/18/21 18:21 68 12 98 11/18/21 16:16 36.2 C L 77 20 160/71 H 96 Laboratory Results Laboratory Results WBC 11.44 K/uL (4.8-10.8) H 11/18/21 18:05 RBC 2.79 M/uL (4.7-6.1) L 11/18/21 18:05 Hgb 8.2 g/dL (14.0-18.0) L 11/18/21 18:05 Hct 25.0 % (42-52) L 11/18/21 18:05 MCV 89.6 fL (80-100) 11/18/21 18:05 MCH 29.4 pg (25-34) 11/18/21 18:05 MCHC 32.8 g/dL (32-36) 11/18/21 18:05 RDW Std Deviation 49.1 fL (36.4-46.3) H 11/18/21 18:05 RDW Coeff of Analisa 14.7 % (11.5-14.5) H 11/18/21 18:05 Plt Count 444 K/uL (130-400) H 11/18/21 18:05 MPV 9.1 fL (7.4-10.4) 11/18/21 18:05 Immature Gran % (Auto) 0.3 % 11/18/21 18:05 Neut % (Auto) 75.1 % 11/18/21 18:05 Lymph % (Auto) 14.7 % 11/18/21 18:05 Day % (Auto) 8.0 % 11/18/21 18:05 Eos % (Auto) 1.7 % 11/18/21 18:05 Baso % (Auto) 0.2 % 11/18/21 18:05 Neut # (Auto) 8.59 K/uL (1.4-6.5) H 11/18/21 18:05 Lymph # (Auto) 1.68 K/uL (1.2-3.4) 11/18/21 18:05 Day # (Auto) 0.92 K/uL (0.11-0.59) H 11/18/21 18:05 Eos # (Auto) 0.20 K/uL (0-0.5) 11/18/21 18:05 Baso # (Auto) 0.02 K/uL (0-0.2) 11/18/21 18:05 Immature Gran # (Auto) 0.03 K/uL (0.00-0.02) H 11/18/21 18:05 Sodium 127 mmol/L (136-145) L 11/18/21 18:05 Potassium 4.1 mmol/L (3.5-5.1) 11/18/21 18:05 Chloride 91 mmol/L (98-107) L 11/18/21 18:05 Carbon Dioxide 28 mmol/L (21-32) 11/18/21 18:05 Anion Gap 8 (3-11) 11/18/21 18:05 BUN 24 mg/dl (6-23) H 11/18/21 18:05 Creatinine 1.10 mg/dl (0.6-1.4) 11/18/21 18:05 Est Cr Clr Drug Dosing 69.6 ml/min 11/18/21 18:05 Est GFR ( Amer) 82.9 ml/min 11/18/21 18:05 Est GFR (Non-Af Amer) 71.6 ml/min 11/18/21 18:05 BUN/Creatinine Ratio 21.8 (10-20) H 11/18/21 18:05 Glucose 159 mg/dl (70-99(Fasting)) H 11/18/21 18:05 POC Glucose 201 mg/dl (70-99) H 11/18/21 21:31 Calcium 8.9 mg/dl (8.5-10.1) 11/18/21 18:05 Total Bilirubin 0.3 mg/dl (0.2-1.0) 11/18/21 18:05 AST 16 U/L (13-39) 11/18/21 18:05 ALT 16 U/L (7-52) 11/18/21 18:05 Alkaline Phosphatase 246 U/L (34-104) H 11/18/21 18:05 Total Protein 7.6 gm/dl (6.0-8.3) 11/18/21 18:05 Albumin 3.5 gm/dl (3.4-5.0) 11/18/21 18:05 Globulin 4.1 gm/dl (2.5-4.0) H 11/18/21 18:05 Albumin/Globulin Ratio 0.9 (0.9-2) 11/18/21 18:05 Procalcitonin 0.33 ng/ml (0-0.5) 11/18/21 20:45 Urine Color Yellow 11/18/21 18:58 Urine Appearance Clear (Clear) 11/18/21 18:58 Urine pH 5.5 (4.5-7.5) 11/18/21 18:58 Ur Specific [place] 1.007 (1.000-1.030) 11/18/21 18:58 Urine Protein Trace (Negative) H 11/18/21 18:58 Urine Glucose (UA) Negative (Negative) 11/18/21 18:58 Urine Ketones Negative (Negative) 11/18/21 18:58 Urine Blood Negative (Negative) 11/18/21 18:58 Urine Nitrite Negative (Negative) 11/18/21 18:58 Urine Bilirubin Negative (Negative) 11/18/21 18:58 Urine Urobilinogen Negative (Negative) 11/18/21 18:58 Ur Leukocyte Esterase Negative (Negative) 11/18/21 18:58 Urine WBC (Auto) 0 /hpf (0-5) 11/18/21 18:58 Urine RBC (Auto) 0-4 /hpf (0-4) 11/18/21 18:58 U Hyaline Cast (Auto) 0 /lpf (0-5) 11/18/21 18:58 U Epithel Cells (Auto) 0-5 /lpf (0-5) 11/18/21 18:58 Urine Bacteria (Auto) Negative (Negative) 11/18/21 18:58 SARS-CoV-2 (PCR) NEGATIVE (Negative) 11/18/21 18:58 Influenza Type A (PCR) Negative (Neg) 11/18/21 18:58 Influenza Type B (PCR) Negative (Neg) 11/18/21 18:58 RSV (RT-PCR) Negative (Neg) 11/18/21 18:58 Impressions Chest X-Ray 11/18/21 16:21 XR chest 1V portable CLINICAL HISTORY: cough TECHNIQUE: Single frontal radiograph of the chest was obtained. Comparison: Comparison is made to chest 2 views 10/01/[address] chest 11/14/2021 FINDINGS: No lines and tubes are seen. The cardiomediastinal silhouette is normal. Multifocal airspace opacities are seen in the bilateral lungs. No evidence of pleural effusion or pneumothorax. IMPRESSION: Multifocal opacities in the bilateral lungs compatible with pneumonia. ACT 112: Negative or not required by law. Electronically signed by: Dharmesh Hidalgo M.D. 11/18/2021 5:22 PM Chest CTA 11/18/21 17:23 CT angio chest PE protocol CLINICAL HISTORY: cough, chest pain L side, h/o emphysema recur PNA TECHNIQUE: Multidetector row helical CT of the chest was performed. Coronal and sagittal reformations were obtained. Coronal and sagittal MIPS were obtained from the axial data set and were submitted for review. Automated dose lowering techniques and/or adjustment according to patient size were utilized for this exam. Comparison: Comparison is made to CT chest 11/14/2021 FINDINGS: Lungs and pleura: Redemonstration of consolidative of opacities in the bilateral lungs. A few pulmonary cysts are seen. Heart and pericardium: Heart size is normal. No pericardial effusion. Vessels: No evidence of pulmonary embolism. Mediastinum and cristopher: Subcentimeter lymph nodes are seen. Chest wall and lower neck: Gynecomastia is noted bilaterally. Abdomen: Unremarkable. Bones: Unremarkable. IMPRESSION: 1. No evidence of pulmonary embolism. 2. Redemonstration of multiple foci of airspace opacities compatible with pneumonia. ACT 112: Negative or not required by law. Electronically signed by: Dharmesh Hidalgo M.D. 11/18/2021 8:35 PM ECG Additional Comments: EKG wtih NSR at 68, normal axis, AU=121, QRS=86, QIl=772, no acute ischemic changes Code Status & VTE Plan VTE Prophylaxis Plan VTE Prophylaxis will be ordered: Yes PG Care Time/CCT Total # of Minutes Spent Total Time Spent with Patient: Total time spent is greater than 50% in coordination of care (as documented) at patient's floor/unit and/or counseling patient: Coding Level of Care Code 72563 Initial Inpt Care Lvl 3 Diagnoses Pneumonia J18.1 Laterality: right Lung location: lower lobe of lung Pneumonia type: due to unspecified organism Chronic hyponatremia E87.1 COPD (chronic obstructive pulmonary disease) J42 COPD type: chronic bronchitis Chronic bronchitis type: unspecified Insulin dependent diabetes mellitus E11.9; Z79.4 BPH (benign prostatic hyperplasia) N40.1; R35.0 Lower urinary tract symptom detail: urinary frequency Lower urinary tract symptom presence: symptoms present Chronic diastolic CHF (congestive heart failure) I50.32 Hypothyroidism E03.9 Hypothyroidism type: acquired CAD (coronary atherosclerotic disease) I25.10 CKD (chronic kidney disease) stage 2, GFR 60-89 ml/min N18.2 Depression F32.9 Essential hypertension I10 PAD (peripheral artery disease) I73.9 Hyperlipidemia E78.2 Hyperlipidemia type: mixed hyperlipidemia Exposure to COVID-19 virus Z20.822 GERD (gastroesophageal reflux disease) K21.9 Esophagitis presence: esophagitis presence not specified (1) BPH (benign prostatic hyperplasia) Lower urinary tract symptom detail: urinary frequency Lower urinary tract symptom presence: symptoms present Qualified Code(s): N40.1 - Benign prostatic hyperplasia with lower urinary tract symptoms; R35.0 - Frequency of micturition (2) Hyperlipidemia Hyperlipidemia type: mixed hyperlipidemia Qualified Code(s): E78.2 - Mixed hyperlipidemia (3) Hypothyroidism Hypothyroidism type: acquired Qualified Code(s): E03.9 - Hypothyroidism, unspecified (4) COPD (chronic obstructive pulmonary disease) COPD type: chronic bronchitis Chronic bronchitis type: unspecified Qualified Code(s): J42 - Unspecified chronic bronchitis (5) GERD (gastroesophageal reflux disease) Esophagitis presence: esophagitis presence not specified Qualified Code(s): K21.9 - Gastro-esophageal reflux disease without esophagitis (6) Pneumonia Laterality: right Lung location: lower lobe of lung Pneumonia type: due to unspecified organism Qualified Code(s): J18.1 - Lobar pneumonia, unspecified organism
[2021-11-18] MEDS ORDERED: ALBUTEROL HFA 8 GM INHALER INH PRN (22:45)
[2021-11-18] MEDS ORDERED: DEXTROSE 50% 50 ML SYRINGE IV PRN (22:45)
[2021-11-18] MEDS ORDERED: GLUCOSE 10 TABS/TUBE PO PRN (22:45)
[2021-11-18] MEDS ORDERED: GLUCOSE 40% GEL 15 GM TUBE PO PRN (22:45)
[2021-11-18] MEDS ORDERED: PROMETHAZINE HCL 25 MG TAB PO PRN (22:45)
[2021-11-18] MEDS ORDERED: CARBOHYDRATES FOR HYPOGLYCEMIA PO PRN (22:45)
[2021-11-18] MEDS ORDERED: IPRATROPIUM BROMIDE NEB SOLN 0.02% 2.5 ML VIAL INH PRN (22:45)
[2021-11-18] MEDS ORDERED: GLUCAGON FOR INJ 1 MG VIAL SQ PRN (22:45)
[2021-11-18] MEDS ORDERED: diazePAM 2 MG TABLET PO PRN (22:45)
[2021-11-18] MEDS ORDERED: DICLOFENAC SOD 1% GEL 100 GM TUBE EXT PRN (22:45)
[2021-11-18] MEDS ORDERED: LEVALBUTEROL HCL 0.63 MG/3 ML NEB INH PRN (22:45)
[2021-11-18] MEDS ORDERED: PIPERACILL/TAZOBAC CONSULT ACTIVE PRN (22:58)
[2021-11-18] MEDS ORDERED: PIPERACILLIN/TAZOBACTAM 4.5 GM/120 ML BAG IV STA (23:05)
[2021-11-18] MEDS: INSULIN ASPART PER UNIT SC SCH (23:21)
[2021-11-18] MEDS ORDERED: AZITHROMYCIN 500 MG in DEXTROSE 5% 250 ML IV ONE (23:30)
[2021-11-19] MEDS: ENOXAPARIN INJ 40 MG/0.4 ML SYR SQ SCH ×2 (02:04→23:23)
[2021-11-19] MEDS: INSULIN DETEMIR FLEXPEN/FLEX TOUCH 100 UNITS/ML 3ML SQ SCH ×3 (02:06→23:23)
[2021-11-19] MEDS: oxyCODONE/ACETAMINOPHEN 5mg/325mg TAB PO PRN (04:33)
[2021-11-19] MEDS: PIPERACILLIN/TAZOBACTAM 3.375 GM in DEXTROSE 5% 100 ML IV SCH ×3 (04:42→21:44)
[2021-11-19 05:28] LABS: Basophils # (auto) 0.02 K/uL (0-0.2); Basophils % (auto) 0.2 %; Eosinophils # (auto) 0.11 K/uL (0-0.5); Eosinophils % (auto) 1.3 %; Hematocrit (blood only) 24.3 % (42-52); Immature Granulocytes # (auto) 0.02 K/uL (0.00-0.02); Immature Granulocytes % (auto) 0.2 %; Lymphocytes # (auto) 1.19 K/uL (1.2-3.4); Mean Corpuscular Hemoglobin 29.4 pg (25-34); Mean Corpuscular Hgb Conc 32.9 g/dL (32-36); Mean Corpuscular Volume 89.3 fL (80-100); Mean Platelet Volume 8.9 fL (7.4-10.4); Monocytes # (auto) 0.66 K/uL (0.11-0.59); Monocytes % (auto) 7.8 %; Neutrophils % (auto) 76.5 %; Platelet Count 443 K/uL (130-400); RDW Coefficient of Variation 14.8 % (11.5-14.5); RDW Standard Deviation 48.4 fL (36.4-46.3); Red Blood Count 2.72 M/uL (4.7-6.1)
[2021-11-19 06:20] LABS: Albumin Level 3.3 gm/dl (3.4-5.0); BUN Creatinine Ratio 17.8 (10-20); Bilirubin Direct 0.1 mg/dl (0-0.2); Bilirubin,Total 0.4 mg/dl (0.2-1.0); Calcium 8.8 mg/dl (8.5-10.1); Creatinine Clr Calc Pharmacy 75.8 ml/min; Est GFR (Non-African American) 79.3 ml/min; Potassium 4.5 mmol/L (3.5-5.1); Total Protein 7.4 gm/dl (6.0-8.3)
[2021-11-19] MEDS ORDERED: LEVOTHYROXINE SODIUM 175 MCG TABLET PO SCH (06:30)
[2021-11-19] MEDS ORDERED: INSULIN HUMAN REGULAR PER UNIT 10 UNITS in SYRINGE 9.9 ML IV ONE (07:00)
[2021-11-19] MEDS: METOCLOPRAMIDE HCL 10 MG TABLET PO SCH ×4 (08:11→21:26)
[2021-11-19] MEDS: LOSARTAN POTASSIUM 50 MG TAB PO SCH (08:44)
[2021-11-19] MEDS: FOLIC ACID 1 MG TAB PO SCH ×2 (08:45→21:22)
[2021-11-19] MEDS: BUMETANIDE 1 MG TAB PO SCH ×2 (08:45→18:02)
[2021-11-19] MEDS: DOCUSATE SODIUM/SENNA 50/8.6MG TAB PO SCH ×2 (08:45→21:21)
[2021-11-19] MEDS: PANTOprazole 40 MG TAB PO SCH ×2 (08:45→21:24)
[2021-11-19] MEDS: ATORVASTATIN 40 MG TAB PO SCH (08:46)
[2021-11-19] MEDS: ATENOLOL 50 MG TABLET PO SCH ×2 (08:46→21:21)
[2021-11-19] MEDS: ASPIRIN 81 MG ECTAB PO SCH (08:46)
[2021-11-19] MEDS: amLODIPine BESYLATE 5 MG TAB PO SCH (08:47)
[2021-11-19] MEDS: ISOSORBIDE MONO EXTENDED REL 30 MG TABCR PO SCH (08:47)
[2021-11-19] MEDS: FAMOTIDINE 10 MG TABLET PO SCH (08:47)
[2021-11-19] MEDS ORDERED: FLUTICASONE FUROATE 100MCG 14 PUFFS/INHALER INH SCH (09:00)
[2021-11-19] MEDS ORDERED: NON-FORMULARY MEDICATION (Fluticasone-Umeclidin-Vilanter [Trelegy Ellipta] 100-62.5-25 mcg INH SCH (09:00)
[2021-11-19] MEDS ORDERED: SODIUM CHLORIDE 1 GM TABLET PO SCH (09:00)
[2021-11-19] MEDS: UMECLIDINIUM/VILANTEROL 62.5/25MCG 7 PUFFS/INHALER INH SCH (09:02)
[2021-11-19] MEDS: INSULIN ASPART PER UNIT SC SCH ×4 (09:15→23:21)
[2021-11-19] MEDS ORDERED: PHARMACY GLYCEMIC MGMT CONSULT PRN (10:59)
[2021-11-19] MEDS ORDERED: INSULIN 70% ASPART PROTAMINE/30% ASPART SC ONE (10:59)
[2021-11-19 11:00] LABS: Lyme Ab IgG w/WB Rflx Negative (Negative)
[2021-11-19 11:19] LABS: Lyme Ab IgM w/WB Rflx Negative (Negative)
--- NOTE | 2021-11-19 11:32 | Electrocardiogram Report ---
Test Reason : Blood Pressure : / mmHG Vent. Rate : 068 BPM Atrial Rate : 068 BPM P-R Int : 188 ms QRS Dur : 086 ms QT Int : 400 ms P-R-T Axes : 004 023 032 degrees QTc Int : 425 ms Poor data quality, interpretation may be adversely affected Normal sinus rhythm Normal ECG When compared with ECG of 02-JUN-2021 17:27, NC interval has decreased Confirmed by Carlo Hawley ([id number]) on 11/19/2021 11:32:20 AM Referred By: Shoshana Arevalo Confirmed By:Carlo Hawley
[2021-11-19] MEDS ORDERED: BUMETANIDE 1 MG TAB PO ONE (12:33)
--- NOTE | 2021-11-19 13:38 | Pharmacy Report ---
Pharmacy Glycemic Short Note 2 - Date of Service November 19, 2021 - Glycemic Short BSG Results (Last 24 hours): 11/18/21 11/18/21 11/19/21 18:05 21:31 05:10 Glucose 159 H 346 H* POC Glucose 201 H 11/19/21 11/19/21 11/19/21 08:15 09:00 10:47 Glucose POC Glucose 403 H* 346 H* 378 H* 11/19/21 11/19/21 12:00 13:30 Glucose POC Glucose 325 H* 205 H OUTPATIENT ANTIDIABETIC REGIMEN: * Levemir 38 units bid, aspart SSI ASSESSMENT: * 61 year old admitted with pneumonia. Type 1 DM per notes * BSGs elevated at time of consult at 325 mg/dL - Given already home Levemir dose this AM, 10 units IV insulin, 15 units of correctional insulin given an hour ago * Plan to tighten CF/CR with dinner time to stress of 3 dosing. Unclear if elevated BSGs related to stress d/t infection. No steroids ordered at this time PLAN FOR INPATIENT GLYCEMIC CONTROL: * Hold outpatient oral diabetes medications * Basal insulin * Lantus 38 units this AM, increase to 48 units bid - stress home dose * Bolus insulin * NovoLog per scale ACHS or Q6hrs while NPO * Goal Range: Low 110 mg/dL - High 140 mg/dL * Correction Factor: 15 mg/dL/unit * Nutritional / Prandial insulin per carb ratio of 1 unit per 5 grams CHO consumed PLAN FOR DISCHARGE: * tbd
[2021-11-19 14:41] LABS: BUN Creatinine Ratio 16.7 (10-20); Calcium 9.2 mg/dl (8.5-10.1); Creatinine Clr Calc Pharmacy 70.9 ml/min; Est GFR (African American) 84.8 ml/min; Est GFR (Non-African American) 73.2 ml/min; Potassium 4.3 mmol/L (3.5-5.1)
[2021-11-19 14:52] LABS: Ferritin 538.1 ng/ml (8-388)
[2021-11-19 14:58] LABS: Folate (Folic Acid) > 22.30 ng/ml (>5.38)
[2021-11-19 14:59] LABS: Vitamin B12 707 pg/ml (211-911)
--- NOTE | 2021-11-19 17:11 | Hospitalist Progress Note ---
Date of Service November 19, 2021 Assessment & Plan (1) Pneumonia: Plan: 61yo male with multiple medical comorbidities presenting with left sided chest discomfort. He has had ongoing PNA since August 2021 and has completed two courses of antibiotics (Doxycycline and Cefdinir) and was started on Augmentin on 11/14/21. Patient with history of aspiration pneumonia n the past. CT appears to have worsening of left sided infiltrate when compared to prior study from 11/14/21. Redemonstration of multiple foci of airspace opacities compatible with pneumonia. Patient is afebrile at present, HD stable. No respiratory distress. Adequate oxygenation on room air. Mildly elevated WBC count at 11.44 with neutrophil predominance Procalcitonin = 0.33 -Admit to medical -Follow blood cultures sent from ER -Sputum gram stain and culture -Check MRSA nares -Incentive spirometry -Received Levaquin in ER - will continue antibiotics with Zosyn 4.5gm IV q 8 given history of aspiration pneumonia, longstanding COPD as well as Azithromycin for atypical coverage -Check Fungitell -- pending -Tylenol PRN pain or fever -Zofran PRN nausea -Consider Pulmonary consultation 11/19 * --> Continue Zosyn/Azithro(day 2). 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 Afebrile * Monitor blood cultures * Maintaining isolation precautions given recent exposure --> remains stable on RA * MRSA nares negative * Continue IS * Possible failure of outpatient oral abx and needing 24-48hours IV abx prior to de-escalation * Also with chronic aspiration --> aspiration precautions, encouraged to stop using straws. * Consult speech. Will also need outpt EGD for concerns for stricture on prior imaging/anemia per GI Incentive spirometer, duonebs prn, supplemental O2 to maintain sats Sputum cx pending --> monitor Also with CHF/hypothyroidism (BNP/TSH elevated, increased Synthroid to 88mcg daily) * --> drinking 2-64oz Cross cups as well as 2-36 oz Gatorades daily when told last admission to limit to 2000ml/daily. Also on 1g BID salt tablets. * --> Will hold sodium chloride for now (also check urine studies/urine sodium), give extra 2mg dose of bumex, fluid restriction. * --> ALP elevation likely 2nd to hepatic congestion --> improved on repeat after extra bumex. * ??Any benefit from adding spironolactone Monitor daily weights, I&Os (2) Exposure to COVID-19 virus: Plan: Patient is fully vaccinated + booster. Exposed to Covid-19 by family member who lives in the home. Last contact was today 11/18/21. PCR testing today is NEGATIVE. -Patient to remain on isolation during hospital stay -Recommend repeat testing at least 5 days after last exposure (exposure 11/18, daughter) On RA Repeat if loss taste/smell/worsening of #1 Remains in isolation precautions but would avoid placing in unit like 2E as is currently negative and if chance he did not get from family member would not want to expose to unit full of positive patients/increased risk/further isolation --> DISCUSSED WITH COORDINATOR THE CONCERNS AND PREFERENCE FOR BED LIKE 235/277/etc that would be able to utilize PPE but not cohorted in isolated unit (3) Chronic diastolic CHF (congestive heart failure): Plan: Chronic. -Continue home regimen - Losartan, Isosorbide mononitrate, Atenolol, Bumex Admits to drinking 2-64oz fluid Wally cups, 2-36oz blue Gatorade daily --> Fluid restriction --> Urine studies given prior hx subarach on SSRI and could have SIADH picture as well but appeared to have abd fullness/hepatic congestion/elevated ALP Bumex 2mg BID --> given extra 2mg x 1 today, hold sodium chloride 1gm BID tablets (may need to continue this and have increased bumex but will need to monitor, consider neph) --> If able to maintain fluid restriction could potentially avoid this. Consider f/u CHF clinic at discharge (4) Chronic hyponatremia: Plan: Na presently 127 (elevated BSGs as well). Patient with chronic hyponatremia with baseline 125-128. He is asymptomatic. -Continue to monitor -Continue home salt tabs - 2gm po BID --> HOLDING FOR NOW Bumex 2mg BID, added 2mg this afternoon Fluid restriction -- HAD BEEN TOLD THIS IN THE PAST 2000ml/day restriction, placed on restriction Repeat BMP with Na 130 (also with improvement of sugars) Continue to monitor BMP (5) COPD (chronic obstructive pulmonary disease): Plan: Chronic. Stable. Patient denies worsening SOB, wheeze. -Continue Trelegy -Continue Xopenex -Continue Ipratropium as needed -Albuterol as needed -Hold Fluticasone in setting of PNA (6) Insulin dependent diabetes mellitus: Plan: Type I DM -Continue home insulin -Goal 100 - 140 Reports sugars 300s in the AM, 200s in afternoon --> suspect needing increased evening insulin continue to monitor BSGS elevated this afternoon, given extra 15 of aspart and consult pharmacy for assitance (7) BPH (benign prostatic hyperplasia): Plan: Chronic. Stable on medications -Continue Flomax 0.4mg po daily -Monitor UOP (8) Hypothyroidism: Plan: Chronic, but did check TSH given chronic hyponatremia. Elevated 2nd to acute illness but appeared more elevated than would expect given stability of pneumonia --> Increased synthroid to 188mcg daily and will need repeat TFT in 4-6 wks outpatient/adjustment as needed (9) CAD (coronary atherosclerotic disease): Plan: Chronic. -Continue home medications, ASA, Atorvastatin, Atenolol, Losartan (10) CKD (chronic kidney disease) stage 2, GFR 60-89 ml/min: Plan: Near baseline -Avoid nephrotoxic agents -Renal dosing where needed -Montior renal function Stable on repeat with increased diuretic as above (11) Depression: Plan: Chronic -Continue Valium qHS -Continue Nortriptyline at home dose (12) Essential hypertension: Plan: Chronic. elevated, improved with extra bumex/fluid restriction, currently 149/61 -Continue Losartan, Amlodipine, Atenolol -Continue to monitor (13) PAD (peripheral artery disease): Plan: Chronic. Stable -Continue ASA -Continue Atorvastatin (14) Hyperlipidemia: Plan: Chronic -Continue Atorvastatin (15) GERD (gastroesophageal reflux disease): Plan: Chronic. Stable on medications -Continue Protonix 40mg po BID -Continue Pepcid 10mg po qAM Plan: F/E/N - Heplock. Monitor electrolytes, Na as above, AHA/CC diet as tolerated Ppx - Lovenox Code - Conditional - no intubation or mechanical ventilation, CPR ok. No prolonged care. Remains in isolation precautions but would avoid placing in unit like 2E as is currently negative and if chance he did not get from family member would not want to expose to unit full of positive patients/increased risk/further isolation Admission and Anticipated Discharge Date Admission Date: November 18, 2021 Subjective patient evaluated this morning breathing stable cough with green/brown sputum, lessened. sputum cx pending discussed recent exposure -- daughter at home has been isolating but positive. his test is positive but remains on isolation discussed low sodium -- he endorses 2-3 yrs ago in hospital they told him to limit to two mugs/daily water but wasn't enough has been going to [employer] recently and gets a big cup, drinking through straw even though he knows he has issues with aspiration and this is when recurrent bouts of pneumonia occuring (instructed to avoid) and he drinks two of these along with 2 36 oz blue Gatorade as previously not getting enough fluids. Holding salt tablets temporarily and extra dose of Bumex sugars 2-300s, higher in AM but better in afternoon. Discussed may need increased evening insulin and pharmacy consulted. No fever, chills, chest pain. +SOB w exertion at times. No abd pain/nausea/vomiting. Review of Systems Review of Systems: All systems reviewed & are unremarkable except as noted in HPI & below Physical Exam Physical Exam: General: patient resting comfortably, NAD, non-toxic in appearance, AA&O x 4, +blind Skin: warm, dry, intact, no rashes or lesions ENT: mmm, trachea midline, no deviation, +JVD Resp: CTAB with exception of faint crackles RML, diminished in the bases, no wheezing, 97% on RA CV: RRR, no m/r/g, 1+ b/l LE edema, calves non-tender, pulses palpable GI: +BS, +distended/firm, non-tender, no guarding or rigidity : no pack Neuro/Psych: AOx3, cooperative, speech clear/no facial droop, moving all extremities Results & Data Results & Data ([facility]) Vital Signs (Past 12 Hours) Vital Signs Temp Pulse Pulse Resp BP BP Pulse Ox 11/19/21 15:00 70 25 H 149/61 H 11/19/21 14:30 73 18 159/65 H 11/19/21 14:11 36.7 C 82 18 165/95 H 96 11/19/21 14:08 76 24 165/95 H 11/19/21 14:00 72 9 L 11/19/21 13:30 71 19 156/61 H 11/19/21 13:00 69 17 146/61 H 11/19/21 12:35 75 19 149/68 H 11/19/21 12:00 73 15 147/64 H 11/19/21 11:30 79 22 159/67 H 11/19/21 11:00 75 21 140/55 L 11/19/21 10:30 78 19 148/55 H 11/19/21 10:11 81 20 175/85 H 11/19/21 10:00 80 17 11/19/21 09:00 82 14 163/71 H 11/19/21 08:30 87 16 150/68 H 11/19/21 08:00 80 17 157/74 H 11/19/21 07:38 81 18 179/69 H 97 11/19/21 07:30 78 19 178/69 H 11/19/21 07:00 80 18 161/72 H 94 11/19/21 06:41 75 23 158/63 H 92 11/19/21 06:30 77 19 158/64 H 90 11/19/21 06:00 80 19 160/66 H 90 11/19/21 05:30 78 18 162/77 H 91 Laboratory Results 11/19/21 11/19/21 11/19/21 Range/Units 13:57 13:57 13:30 WBC (4.8-10.8) K/uL RBC (4.7-6.1) M/uL Hgb (14.0-18.0) g/dL Hct (42-52) % MCV (80-100) fL MCH (25-34) pg MCHC (32-36) g/dL RDW Std Deviation (36.4-46.3) fL RDW Coeff of Analisa (11.5-14.5) % Plt Count (130-400) K/uL MPV (7.4-10.4) fL Immature Gran % (Auto) % Neut % (Auto) % Lymph % (Auto) % [place] % (Auto) % Eos % (Auto) % Baso % (Auto) % Neut # (Auto) (1.4-6.5) K/uL Lymph # (Auto) (1.2-3.4) K/uL [place] # (Auto) (0.11-0.59) K/uL Eos # (Auto) (0-0.5) K/uL Baso # (Auto) (0-0.2) K/uL Immature Gran # (Auto) (0.00-0.02) K/uL Sodium 130 L (136-145) mmol/L Potassium 4.3 (3.5-5.1) mmol/L Chloride 92 L (98-107) mmol/L Carbon Dioxide 27 (21-32) mmol/L Anion Gap 11 (3-11) BUN 18 (6-23) mg/dl Creatinine 1.08 (0.6-1.4) mg/dl Est Cr Clr Drug Dosing 70.9 ml/min Est GFR ( Amer) 84.8 ml/min Est GFR (Non-Af Amer) 73.2 ml/min BUN/Creatinine Ratio 16.7 (10-20) Glucose 156 H (70-99(Fasting)) mg/dl POC Glucose 205 H (70-99) mg/dl Osmolality (280-300) mOsm/kg Calcium 9.2 (8.5-10.1) mg/dl Iron 25 L (35-175) mcg/dl TIBC 210 L (250-450) mcg/dl Unsaturated IBC 185 (155-355) mcg/dl Transferrin % Sat 12 L (20-50) % Ferritin 538.1 H (8-388) ng/ml Total Bilirubin (0.2-1.0) mg/dl Direct Bilirubin (0-0.2) mg/dl AST (13-39) U/L ALT (7-52) U/L Alkaline Phosphatase (34-104) U/L B-Natriuretic Peptide (0-100) pg/ml Total Protein (6.0-8.3) gm/dl Albumin (3.4-5.0) gm/dl Globulin (2.5-4.0) gm/dl Albumin/Globulin Ratio (0.9-2) Vitamin B12 707 (211-911) pg/ml Folate > 22.30 (>5.38) ng/ml Procalcitonin (0-0.5) ng/ml TSH (0.300-4.500) uIu/ml Free T4 (0.61-1.60) ng/dl Urine Color Urine Appearance (Clear) Urine pH (4.5-7.5) Ur Specific [place] (1.000-1.030) Urine Protein (Negative) Urine Glucose (UA) (Negative) Urine Ketones (Negative) Urine Blood (Negative) Urine Nitrite (Negative) Urine Bilirubin (Negative) Urine Urobilinogen (Negative) Ur Leukocyte Esterase (Negative) Urine WBC (Auto) (0-5) /hpf Urine RBC (Auto) (0-4) /hpf U Hyaline Cast (Auto) (0-5) /lpf U Epithel Cells (Auto) (0-5) /lpf Urine Bacteria (Auto) (Negative) Urine Osmolality (500-800) mOsm/kg Ur Random Creatinine mg/dl Ur Random Sodium mmol/L Nasal Screen MRSA (PCR) (Negative) Lyme Disease IgG Ab (Negative) Lyme Disease IgM Ab (Negative) SARS-CoV-2 (PCR) (Negative) Influenza Type A (PCR) (Neg) Influenza Type B (PCR) (Neg) RSV (RT-PCR) (Neg) Beta-(1,3)-D-Glucan B-(1,3)-D-Glucan Intrp 11/19/21 11/19/21 11/19/21 Range/Units 12:47 12:00 10:47 WBC (4.8-10.8) K/uL RBC (4.7-6.1) M/uL Hgb (14.0-18.0) g/dL Hct (42-52) % MCV (80-100) fL MCH (25-34) pg MCHC (32-36) g/dL RDW Std Deviation (36.4-46.3) fL RDW Coeff of Analisa (11.5-14.5) % Plt Count (130-400) K/uL MPV (7.4-10.4) fL Immature Gran % (Auto) % Neut % (Auto) % Lymph % (Auto) % [place] % (Auto) % Eos % (Auto) % Baso % (Auto) % Neut # (Auto) (1.4-6.5) K/uL Lymph # (Auto) (1.2-3.4) K/uL [place] # (Auto) (0.11-0.59) K/uL Eos # (Auto) (0-0.5) K/uL Baso # (Auto) (0-0.2) K/uL Immature Gran # (Auto) (0.00-0.02) K/uL Sodium (136-145) mmol/L Potassium (3.5-5.1) mmol/L Chloride (98-107) mmol/L Carbon Dioxide (21-32) mmol/L Anion Gap (3-11) BUN (6-23) mg/dl Creatinine (0.6-1.4) mg/dl Est Cr Clr Drug Dosing ml/min Est GFR ( Amer) ml/min Est GFR (Non-Af Amer) ml/min BUN/Creatinine Ratio (10-20) Glucose (70-99(Fasting)) mg/dl POC Glucose 325 H* 378 H* (70-99) mg/dl Osmolality (280-300) mOsm/kg Calcium (8.5-10.1) mg/dl Iron (35-175) mcg/dl TIBC (250-450) mcg/dl Unsaturated IBC (155-355) mcg/dl Transferrin % Sat (20-50) % Ferritin (8-388) ng/ml Total Bilirubin (0.2-1.0) mg/dl Direct Bilirubin (0-0.2) mg/dl AST (13-39) U/L ALT (7-52) U/L Alkaline Phosphatase (34-104) U/L B-Natriuretic Peptide (0-100) pg/ml Total Protein (6.0-8.3) gm/dl Albumin (3.4-5.0) gm/dl Globulin (2.5-4.0) gm/dl Albumin/Globulin Ratio (0.9-2) Vitamin B12 (211-911) pg/ml Folate (>5.38) ng/ml Procalcitonin (0-0.5) ng/ml TSH (0.300-4.500) uIu/ml Free T4 1.10 (0.61-1.60) ng/dl Urine Color Urine Appearance (Clear) Urine pH (4.5-7.5) Ur Specific [place] (1.000-1.030) Urine Protein (Negative) Urine Glucose (UA) (Negative) Urine Ketones (Negative) Urine Blood (Negative) Urine Nitrite (Negative) Urine Bilirubin (Negative) Urine Urobilinogen (Negative) Ur Leukocyte Esterase (Negative) Urine WBC (Auto) (0-5) /hpf Urine RBC (Auto) (0-4) /hpf U Hyaline Cast (Auto) (0-5) /lpf U Epithel Cells (Auto) (0-5) /lpf Urine Bacteria (Auto) (Negative) Urine Osmolality (500-800) mOsm/kg Ur Random Creatinine mg/dl Ur Random Sodium mmol/L Nasal Screen MRSA (PCR) (Negative) Lyme Disease IgG Ab (Negative) Lyme Disease IgM Ab (Negative) SARS-CoV-2 (PCR) (Negative) Influenza Type A (PCR) (Neg) Influenza Type B (PCR) (Neg) RSV (RT-PCR) (Neg) Beta-(1,3)-D-Glucan B-(1,3)-D-Glucan Intrp 11/19/21 11/19/21 11/19/21 Range/Units 10:15 10:15 10:15 WBC (4.8-10.8) K/uL RBC (4.7-6.1) M/uL Hgb (14.0-18.0) g/dL Hct (42-52) % MCV (80-100) fL MCH (25-34) pg MCHC (32-36) g/dL RDW Std Deviation (36.4-46.3) fL RDW Coeff of Aanlisa (11.5-14.5) % Plt Count (130-400) K/uL MPV (7.4-10.4) fL Immature Gran % (Auto) % Neut % (Auto) % Lymph % (Auto) % [place] % (Auto) % Eos % (Auto) % Baso % (Auto) % Neut # (Auto) (1.4-6.5) K/uL Lymph # (Auto) (1.2-3.4) K/uL [place] # (Auto) (0.11-0.59) K/uL Eos # (Auto) (0-0.5) K/uL Baso # (Auto) (0-0.2) K/uL Immature Gran # (Auto) (0.00-0.02) K/uL Sodium (136-145) mmol/L Potassium (3.5-5.1) mmol/L Chloride (98-107) mmol/L Carbon Dioxide (21-32) mmol/L Anion Gap (3-11) BUN (6-23) mg/dl Creatinine (0.6-1.4) mg/dl Est Cr Clr Drug Dosing ml/min Est GFR ( Amer) ml/min Est GFR (Non-Af Amer) ml/min BUN/Creatinine Ratio (10-20) Glucose (70-99(Fasting)) mg/dl POC Glucose (70-99) mg/dl Osmolality (280-300) mOsm/kg Calcium (8.5-10.1) mg/dl Iron (35-175) mcg/dl TIBC (250-450) mcg/dl Unsaturated IBC (155-355) mcg/dl Transferrin % Sat (20-50) % Ferritin (8-388) ng/ml Total Bilirubin (0.2-1.0) mg/dl Direct Bilirubin (0-0.2) mg/dl AST (13-39) U/L ALT (7-52) U/L Alkaline Phosphatase (34-104) U/L B-Natriuretic Peptide (0-100) pg/ml Total Protein (6.0-8.3) gm/dl Albumin (3.4-5.0) gm/dl Globulin (2.5-4.0) gm/dl Albumin/Globulin Ratio (0.9-2) Vitamin B12 (211-911) pg/ml Folate (>5.38) ng/ml Procalcitonin (0-0.5) ng/ml TSH (0.300-4.500) uIu/ml Free T4 (0.61-1.60) ng/dl Urine Color Urine Appearance (Clear) Urine pH (4.5-7.5) Ur Specific [place] (1.000-1.030) Urine Protein (Negative) Urine Glucose (UA) (Negative) Urine Ketones (Negative) Urine Blood (Negative) Urine Nitrite (Negative) Urine Bilirubin (Negative) Urine Urobilinogen (Negative) Ur Leukocyte Esterase (Negative) Urine WBC (Auto) (0-5) /hpf Urine RBC (Auto) (0-4) /hpf U Hyaline Cast (Auto) (0-5) /lpf U Epithel Cells (Auto) (0-5) /lpf Urine Bacteria (Auto) (Negative) Urine Osmolality 335 L (500-800) mOsm/kg Ur Random Creatinine 43.0 mg/dl Ur Random Sodium 37 mmol/L Nasal Screen MRSA (PCR) (Negative) Lyme Disease IgG Ab (Negative) Lyme Disease IgM Ab (Negative) SARS-CoV-2 (PCR) (Negative) Influenza Type A (PCR) (Neg) Influenza Type B (PCR) (Neg) RSV (RT-PCR) (Neg) Beta-(1,3)-D-Glucan B-(1,3)-D-Glucan Intrp 11/19/21 11/19/21 11/19/21 Range/Units 09:39 09:39 09:39 WBC (4.8-10.8) K/uL RBC (4.7-6.1) M/uL Hgb (14.0-18.0) g/dL Hct (42-52) % MCV (80-100) fL MCH (25-34) pg MCHC (32-36) g/dL RDW Std Deviation (36.4-46.3) fL RDW Coeff of Analisa (11.5-14.5) % Plt Count (130-400) K/uL MPV (7.4-10.4) fL Immature Gran % (Auto) % Neut % (Auto) % Lymph % (Auto) % [place] % (Auto) % Eos % (Auto) % Baso % (Auto) % Neut # (Auto) (1.4-6.5) K/uL Lymph # (Auto) (1.2-3.4) K/uL [place] # (Auto) (0.11-0.59) K/uL Eos # (Auto) (0-0.5) K/uL Baso # (Auto) (0-0.2) K/uL Immature Gran # (Auto) (0.00-0.02) K/uL Sodium (136-145) mmol/L Potassium (3.5-5.1) mmol/L Chloride (98-107) mmol/L Carbon Dioxide (21-32) mmol/L Anion Gap (3-11) BUN (6-23) mg/dl Creatinine (0.6-1.4) mg/dl Est Cr Clr Drug Dosing ml/min Est GFR ( Amer) ml/min Est GFR (Non-Af Amer) ml/min BUN/Creatinine Ratio (10-20) Glucose (70-99(Fasting)) mg/dl POC Glucose (70-99) mg/dl Osmolality 282 (280-300) mOsm/kg Calcium (8.5-10.1) mg/dl Iron (35-175) mcg/dl TIBC (250-450) mcg/dl Unsaturated IBC (155-355) mcg/dl Transferrin % Sat (20-50) % Ferritin (8-388) ng/ml Total Bilirubin (0.2-1.0) mg/dl Direct Bilirubin (0-0.2) mg/dl AST (13-39) U/L ALT (7-52) U/L Alkaline Phosphatase (34-104) U/L B-Natriuretic Peptide 118 H (0-100) pg/ml Total Protein (6.0-8.3) gm/dl Albumin (3.4-5.0) gm/dl Globulin (2.5-4.0) gm/dl Albumin/Globulin Ratio (0.9-2) Vitamin B12 (211-911) pg/ml Folate (>5.38) ng/ml Procalcitonin (0-0.5) ng/ml TSH (0.300-4.500) uIu/ml Free T4 (0.61-1.60) ng/dl Urine Color Urine Appearance (Clear) Urine pH (4.5-7.5) Ur Specific [place] (1.000-1.030) Urine Protein (Negative) Urine Glucose (UA) (Negative) Urine Ketones (Negative) Urine Blood (Negative) Urine Nitrite (Negative) Urine Bilirubin (Negative) Urine Urobilinogen (Negative) Ur Leukocyte Esterase (Negative) Urine WBC (Auto) (0-5) /hpf Urine RBC (Auto) (0-4) /hpf U Hyaline Cast (Auto) (0-5) /lpf U Epithel Cells (Auto) (0-5) /lpf Urine Bacteria (Auto) (Negative) Urine Osmolality (500-800) mOsm/kg Ur Random Creatinine mg/dl Ur Random Sodium mmol/L Nasal Screen MRSA (PCR) (Negative) Lyme Disease IgG Ab Negative (Negative) Lyme Disease IgM Ab Negative (Negative) SARS-CoV-2 (PCR) (Negative) Influenza Type A (PCR) (Neg) Influenza Type B (PCR) (Neg) RSV (RT-PCR) (Neg) Beta-(1,3)-D-Glucan B-(1,3)-D-Glucan Intrp 11/19/21 11/19/21 11/19/21 Range/Units 09:39 09:00 08:15 WBC (4.8-10.8) K/uL RBC (4.7-6.1) M/uL Hgb (14.0-18.0) g/dL Hct (42-52) % MCV (80-100) fL MCH (25-34) pg MCHC (32-36) g/dL RDW Std Deviation (36.4-46.3) fL RDW Coeff of Analisa (11.5-14.5) % Plt Count (130-400) K/uL MPV (7.4-10.4) fL Immature Gran % (Auto) % Neut % (Auto) % Lymph % (Auto) % [place] % (Auto) % Eos % (Auto) % Baso % (Auto) % Neut # (Auto) (1.4-6.5) K/uL Lymph # (Auto) (1.2-3.4) K/uL [place] # (Auto) (0.11-0.59) K/uL Eos # (Auto) (0-0.5) K/uL Baso # (Auto) (0-0.2) K/uL Immature Gran # (Auto) (0.00-0.02) K/uL Sodium (136-145) mmol/L Potassium (3.5-5.1) mmol/L Chloride (98-107) mmol/L Carbon Dioxide (21-32) mmol/L Anion Gap (3-11) BUN (6-23) mg/dl Creatinine (0.6-1.4) mg/dl Est Cr Clr Drug Dosing ml/min Est GFR ( Amer) ml/min Est GFR (Non-Af Amer) ml/min BUN/Creatinine Ratio (10-20) Glucose (70-99(Fasting)) mg/dl POC Glucose 346 H* 403 H* (70-99) mg/dl Osmolality (280-300) mOsm/kg Calcium (8.5-10.1) mg/dl Iron (35-175) mcg/dl TIBC (250-450) mcg/dl Unsaturated IBC (155-355) mcg/dl Transferrin % Sat (20-50) % Ferritin (8-388) ng/ml Total Bilirubin (0.2-1.0) mg/dl Direct Bilirubin (0-0.2) mg/dl AST (13-39) U/L ALT (7-52) U/L Alkaline Phosphatase (34-104) U/L B-Natriuretic Peptide (0-100) pg/ml Total Protein (6.0-8.3) gm/dl Albumin (3.4-5.0) gm/dl Globulin (2.5-4.0) gm/dl Albumin/Globulin Ratio (0.9-2) Vitamin B12 (211-911) pg/ml Folate (>5.38) ng/ml Procalcitonin (0-0.5) ng/ml TSH 6.958 H (0.300-4.500) uIu/ml Free T4 (0.61-1.60) ng/dl Urine Color Urine Appearance (Clear) Urine pH (4.5-7.5) Ur Specific [place] (1.000-1.030) Urine Protein (Negative) Urine Glucose (UA) (Negative) Urine Ketones (Negative) Urine Blood (Negative) Urine Nitrite (Negative) Urine Bilirubin (Negative) Urine Urobilinogen (Negative) Ur Leukocyte Esterase (Negative) Urine WBC (Auto) (0-5) /hpf Urine RBC (Auto) (0-4) /hpf U Hyaline Cast (Auto) (0-5) /lpf U Epithel Cells (Auto) (0-5) /lpf Urine Bacteria (Auto) (Negative) Urine Osmolality (500-800) mOsm/kg Ur Random Creatinine mg/dl Ur Random Sodium mmol/L Nasal Screen MRSA (PCR) (Negative) Lyme Disease IgG Ab (Negative) Lyme Disease IgM Ab (Negative) SARS-CoV-2 (PCR) (Negative) Influenza Type A (PCR) (Neg) Influenza Type B (PCR) (Neg) RSV (RT-PCR) (Neg) Beta-(1,3)-D-Glucan B-(1,3)-D-Glucan Intrp 11/19/21 11/19/21 11/19/21 Range/Units 05:10 05:10 00:00 WBC 8.50 (4.8-10.8) K/uL RBC 2.72 L (4.7-6.1) M/uL Hgb 8.0 L (14.0-18.0) g/dL Hct 24.3 L (42-52) % MCV 89.3 (80-100) fL MCH 29.4 (25-34) pg MCHC 32.9 (32-36) g/dL RDW Std Deviation 48.4 H (36.4-46.3) fL RDW Coeff of Analisa 14.8 H (11.5-14.5) % Plt Count 443 H (130-400) K/uL MPV 8.9 (7.4-10.4) fL Immature Gran % (Auto) 0.2 % Neut % (Auto) 76.5 % Lymph % (Auto) 14.0 % [place] % (Auto) 7.8 % Eos % (Auto) 1.3 % Baso % (Auto) 0.2 % Neut # (Auto) 6.50 (1.4-6.5) K/uL Lymph # (Auto) 1.19 L (1.2-3.4) K/uL [place] # (Auto) 0.66 H (0.11-0.59) K/uL Eos # (Auto) 0.11 (0-0.5) K/uL Baso # (Auto) 0.02 (0-0.2) K/uL Immature Gran # (Auto) 0.02 (0.00-0.02) K/uL Sodium 125 L (136-145) mmol/L Potassium 4.5 (3.5-5.1) mmol/L Chloride 91 L (98-107) mmol/L Carbon Dioxide 25 (21-32) mmol/L Anion Gap 9 (3-11) BUN 18 (6-23) mg/dl Creatinine 1.01 (0.6-1.4) mg/dl Est Cr Clr Drug Dosing 75.8 ml/min Est GFR ( Amer) 92.0 ml/min Est GFR (Non-Af Amer) 79.3 ml/min BUN/Creatinine Ratio 17.8 (10-20) Glucose 346 H* (70-99(Fasting)) mg/dl POC Glucose (70-99) mg/dl Osmolality (280-300) mOsm/kg Calcium 8.8 (8.5-10.1) mg/dl Iron (35-175) mcg/dl TIBC (250-450) mcg/dl Unsaturated IBC (155-355) mcg/dl Transferrin % Sat (20-50) % Ferritin (8-388) ng/ml Total Bilirubin 0.4 (0.2-1.0) mg/dl Direct Bilirubin 0.1 (0-0.2) mg/dl AST 12 L (13-39) U/L ALT 13 (7-52) U/L Alkaline Phosphatase 220 H (34-104) U/L B-Natriuretic Peptide (0-100) pg/ml Total Protein 7.4 (6.0-8.3) gm/dl Albumin 3.3 L (3.4-5.0) gm/dl Globulin (2.5-4.0) gm/dl Albumin/Globulin Ratio (0.9-2) Vitamin B12 (211-911) pg/ml Folate (>5.38) ng/ml Procalcitonin (0-0.5) ng/ml TSH (0.300-4.500) uIu/ml Free T4 (0.61-1.60) ng/dl Urine Color Urine Appearance (Clear) Urine pH (4.5-7.5) Ur Specific [place] (1.000-1.030) Urine Protein (Negative) Urine Glucose (UA) (Negative) Urine Ketones (Negative) Urine Blood (Negative) Urine Nitrite (Negative) Urine Bilirubin (Negative) Urine Urobilinogen (Negative) Ur Leukocyte Esterase (Negative) Urine WBC (Auto) (0-5) /hpf Urine RBC (Auto) (0-4) /hpf U Hyaline Cast (Auto) (0-5) /lpf U Epithel Cells (Auto) (0-5) /lpf Urine Bacteria (Auto) (Negative) Urine Osmolality (500-800) mOsm/kg Ur Random Creatinine mg/dl Ur Random Sodium mmol/L Nasal Screen MRSA (PCR) Negative (Negative) Lyme Disease IgG Ab (Negative) Lyme Disease IgM Ab (Negative) SARS-CoV-2 (PCR) (Negative) Influenza Type A (PCR) (Neg) Influenza Type B (PCR) (Neg) RSV (RT-PCR) (Neg) Beta-(1,3)-D-Glucan B-(1,3)-D-Glucan Intrp 11/18/21 11/18/21 11/18/21 Range/Units 21:31 20:45 20:45 WBC (4.8-10.8) K/uL RBC (4.7-6.1) M/uL Hgb (14.0-18.0) g/dL Hct (42-52) % MCV (80-100) fL MCH (25-34) pg MCHC (32-36) g/dL RDW Std Deviation (36.4-46.3) fL RDW Coeff of Analisa (11.5-14.5) % Plt Count (130-400) K/uL MPV (7.4-10.4) fL Immature Gran % (Auto) % Neut % (Auto) % Lymph % (Auto) % [place] % (Auto) % Eos % (Auto) % Baso % (Auto) % Neut # (Auto) (1.4-6.5) K/uL Lymph # (Auto) (1.2-3.4) K/uL [place] # (Auto) (0.11-0.59) K/uL Eos # (Auto) (0-0.5) K/uL Baso # (Auto) (0-0.2) K/uL Immature Gran # (Auto) (0.00-0.02) K/uL Sodium (136-145) mmol/L Potassium (3.5-5.1) mmol/L Chloride (98-107) mmol/L Carbon Dioxide (21-32) mmol/L Anion Gap (3-11) BUN (6-23) mg/dl Creatinine (0.6-1.4) mg/dl Est Cr Clr Drug Dosing ml/min Est GFR ( Amer) ml/min Est GFR (Non-Af Amer) ml/min BUN/Creatinine Ratio (10-20) Glucose (70-99(Fasting)) mg/dl POC Glucose 201 H (70-99) mg/dl Osmolality (280-300) mOsm/kg Calcium (8.5-10.1) mg/dl Iron (35-175) mcg/dl TIBC (250-450) mcg/dl Unsaturated IBC (155-355) mcg/dl Transferrin % Sat (20-50) % Ferritin (8-388) ng/ml Total Bilirubin (0.2-1.0) mg/dl Direct Bilirubin (0-0.2) mg/dl AST (13-39) U/L ALT (7-52) U/L Alkaline Phosphatase (34-104) U/L B-Natriuretic Peptide (0-100) pg/ml Total Protein (6.0-8.3) gm/dl Albumin (3.4-5.0) gm/dl Globulin (2.5-4.0) gm/dl Albumin/Globulin Ratio (0.9-2) Vitamin B12 (211-911) pg/ml Folate (>5.38) ng/ml Procalcitonin 0.33 (0-0.5) ng/ml TSH (0.300-4.500) uIu/ml Free T4 (0.61-1.60) ng/dl Urine Color Urine Appearance (Clear) Urine pH (4.5-7.5) Ur Specific [place] (1.000-1.030) Urine Protein (Negative) Urine Glucose (UA) (Negative) Urine Ketones (Negative) Urine Blood (Negative) Urine Nitrite (Negative) Urine Bilirubin (Negative) Urine Urobilinogen (Negative) Ur Leukocyte Esterase (Negative) Urine WBC (Auto) (0-5) /hpf Urine RBC (Auto) (0-4) /hpf U Hyaline Cast (Auto) (0-5) /lpf U Epithel Cells (Auto) (0-5) /lpf Urine Bacteria (Auto) (Negative) Urine Osmolality (500-800) mOsm/kg Ur Random Creatinine mg/dl Ur Random Sodium mmol/L Nasal Screen MRSA (PCR) (Negative) Lyme Disease IgG Ab (Negative) Lyme Disease IgM Ab (Negative) SARS-CoV-2 (PCR) (Negative) Influenza Type A (PCR) (Neg) Influenza Type B (PCR) (Neg) RSV (RT-PCR) (Neg) Beta-(1,3)-D-Glucan Pending B-(1,3)-D-Glucan Intrp Pending 11/18/21 11/18/21 11/18/21 Range/Units 18:58 18:58 18:05 WBC (4.8-10.8) K/uL RBC (4.7-6.1) M/uL Hgb (14.0-18.0) g/dL Hct (42-52) % MCV (80-100) fL MCH (25-34) pg MCHC (32-36) g/dL RDW Std Deviation (36.4-46.3) fL RDW Coeff of Analisa (11.5-14.5) % Plt Count (130-400) K/uL MPV (7.4-10.4) fL Immature Gran % (Auto) % Neut % (Auto) % Lymph % (Auto) % [place] % (Auto) % Eos % (Auto) % Baso % (Auto) % Neut # (Auto) (1.4-6.5) K/uL Lymph # (Auto) (1.2-3.4) K/uL [place] # (Auto) (0.11-0.59) K/uL Eos # (Auto) (0-0.5) K/uL Baso # (Auto) (0-0.2) K/uL Immature Gran # (Auto) (0.00-0.02) K/uL Sodium 127 L (136-145) mmol/L Potassium 4.1 (3.5-5.1) mmol/L Chloride 91 L (98-107) mmol/L Carbon Dioxide 28 (21-32) mmol/L Anion Gap 8 (3-11) BUN 24 H (6-23) mg/dl Creatinine 1.10 (0.6-1.4) mg/dl Est Cr Clr Drug Dosing 69.6 ml/min Est GFR ( Amer) 82.9 ml/min Est GFR (Non-Af Amer) 71.6 ml/min BUN/Creatinine Ratio 21.8 H (10-20) Glucose 159 H (70-99(Fasting)) mg/dl POC Glucose (70-99) mg/dl Osmolality (280-300) mOsm/kg Calcium 8.9 (8.5-10.1) mg/dl Iron (35-175) mcg/dl TIBC (250-450) mcg/dl Unsaturated IBC (155-355) mcg/dl Transferrin % Sat (20-50) % Ferritin (8-388) ng/ml Total Bilirubin 0.3 (0.2-1.0) mg/dl Direct Bilirubin (0-0.2) mg/dl AST 16 (13-39) U/L ALT 16 (7-52) U/L Alkaline Phosphatase 246 H (34-104) U/L B-Natriuretic Peptide (0-100) pg/ml Total Protein 7.6 (6.0-8.3) gm/dl Albumin 3.5 (3.4-5.0) gm/dl Globulin 4.1 H (2.5-4.0) gm/dl Albumin/Globulin Ratio 0.9 (0.9-2) Vitamin B12 (211-911) pg/ml Folate (>5.38) ng/ml Procalcitonin (0-0.5) ng/ml TSH (0.300-4.500) uIu/ml Free T4 (0.61-1.60) ng/dl Urine Color Yellow Urine Appearance Clear (Clear) Urine pH 5.5 (4.5-7.5) Ur Specific [place] 1.007 (1.000-1.030) Urine Protein Trace H (Negative) Urine Glucose (UA) Negative (Negative) Urine Ketones Negative (Negative) Urine Blood Negative (Negative) Urine Nitrite Negative (Negative) Urine Bilirubin Negative (Negative) Urine Urobilinogen Negative (Negative) Ur Leukocyte Esterase Negative (Negative) Urine WBC (Auto) 0 (0-5) /hpf Urine RBC (Auto) 0-4 (0-4) /hpf U Hyaline Cast (Auto) 0 (0-5) /lpf U Epithel Cells (Auto) 0-5 (0-5) /lpf Urine Bacteria (Auto) Negative (Negative) Urine Osmolality (500-800) mOsm/kg Ur Random Creatinine mg/dl Ur Random Sodium mmol/L Nasal Screen MRSA (PCR) (Negative) Lyme Disease IgG Ab (Negative) Lyme Disease IgM Ab (Negative) SARS-CoV-2 (PCR) NEGATIVE (Negative) Influenza Type A (PCR) Negative (Neg) Influenza Type B (PCR) Negative (Neg) RSV (RT-PCR) Negative (Neg) Beta-(1,3)-D-Glucan B-(1,3)-D-Glucan [facility] 11/18/21 Range/Units 18:05 WBC 11.44 H (4.8-10.8) K/uL RBC 2.79 L (4.7-6.1) M/uL Hgb 8.2 L (14.0-18.0) g/dL Hct 25.0 L (42-52) % MCV 89.6 (80-100) fL MCH 29.4 (25-34) pg MCHC 32.8 (32-36) g/dL RDW Std Deviation 49.1 H (36.4-46.3) fL RDW Coeff of Analisa 14.7 H (11.5-14.5) % Plt Count 444 H (130-400) K/uL MPV 9.1 (7.4-10.4) fL Immature Gran % (Auto) 0.3 % Neut % (Auto) 75.1 % Lymph % (Auto) 14.7 % [place] % (Auto) 8.0 % Eos % (Auto) 1.7 % Baso % (Auto) 0.2 % Neut # (Auto) 8.59 H (1.4-6.5) K/uL Lymph # (Auto) 1.68 (1.2-3.4) K/uL [place] # (Auto) 0.92 H (0.11-0.59) K/uL Eos # (Auto) 0.20 (0-0.5) K/uL Baso # (Auto) 0.02 (0-0.2) K/uL Immature Gran # (Auto) 0.03 H (0.00-0.02) K/uL Sodium (136-145) mmol/L Potassium (3.5-5.1) mmol/L Chloride (98-107) mmol/L Carbon Dioxide (21-32) mmol/L Anion Gap (3-11) BUN (6-23) mg/dl Creatinine (0.6-1.4) mg/dl Est Cr Clr Drug Dosing ml/min Est GFR ( Amer) ml/min Est GFR (Non-Af Amer) ml/min BUN/Creatinine Ratio (10-20) Glucose (70-99(Fasting)) mg/dl POC Glucose (70-99) mg/dl Osmolality (280-300) mOsm/kg Calcium (8.5-10.1) mg/dl Iron (35-175) mcg/dl TIBC (250-450) mcg/dl Unsaturated IBC (155-355) mcg/dl Transferrin % Sat (20-50) % Ferritin (8-388) ng/ml Total Bilirubin (0.2-1.0) mg/dl Direct Bilirubin (0-0.2) mg/dl AST (13-39) U/L ALT (7-52) U/L Alkaline Phosphatase (34-104) U/L B-Natriuretic Peptide (0-100) pg/ml Total Protein (6.0-8.3) gm/dl Albumin (3.4-5.0) gm/dl Globulin (2.5-4.0) gm/dl Albumin/Globulin Ratio (0.9-2) Vitamin B12 (211-911) pg/ml Folate (>5.38) ng/ml Procalcitonin (0-0.5) ng/ml TSH (0.300-4.500) uIu/ml Free T4 (0.61-1.60) ng/dl Urine Color Urine Appearance (Clear) Urine pH (4.5-7.5) Ur Specific [place] (1.000-1.030) Urine Protein (Negative) Urine Glucose (UA) (Negative) Urine Ketones (Negative) Urine Blood (Negative) Urine Nitrite (Negative) Urine Bilirubin (Negative) Urine Urobilinogen (Negative) Ur Leukocyte Esterase (Negative) Urine WBC (Auto) (0-5) /hpf Urine RBC (Auto) (0-4) /hpf U Hyaline Cast (Auto) (0-5) /lpf U Epithel Cells (Auto) (0-5) /lpf Urine Bacteria (Auto) (Negative) Urine Osmolality (500-800) mOsm/kg Ur Random Creatinine mg/dl Ur Random Sodium mmol/L Nasal Screen MRSA (PCR) (Negative) Lyme Disease IgG Ab (Negative) Lyme Disease IgM Ab (Negative) SARS-CoV-2 (PCR) (Negative) Influenza Type A (PCR) (Neg) Influenza Type B (PCR) (Neg) RSV (RT-PCR) (Neg) Beta-(1,3)-D-Glucan B-(1,3)-D-Glucan Intrp Diagnostic Findings Chest CTA 11/18/21 17:23 CT angio chest PE protocol CLINICAL HISTORY: cough, chest pain L side, h/o emphysema recur PNA TECHNIQUE: Multidetector row helical CT of the chest was performed. Coronal and sagittal reformations were obtained. Coronal and sagittal MIPS were obtained from the axial data set and were submitted for review. Automated dose lowering techniques and/or adjustment according to patient size were utilized for this exam. Comparison: Comparison is made to CT chest 11/14/2021 FINDINGS: Lungs and pleura: Redemonstration of consolidative of opacities in the bilateral lungs. A few pulmonary cysts are seen. Heart and pericardium: Heart size is normal. No pericardial effusion. Vessels: No evidence of pulmonary embolism. Mediastinum and cristopher: Subcentimeter lymph nodes are seen. Chest wall and lower neck: Gynecomastia is noted bilaterally. Abdomen: Unremarkable. Bones: Unremarkable. IMPRESSION: 1. No evidence of pulmonary embolism. 2. Redemonstration of multiple foci of airspace opacities compatible with pneumonia. ACT 112: Negative or not required by law. Electronically signed by: Dharmesh Hidalgo M.D. 11/18/2021 8:35 PM PG Care Time/CCT Total # of Minutes Spent Total Time Spent with Patient: Total time spent is greater than 50% in coordination of care (as documented) at patient's floor/unit and/or counseling patient: Coding Level of Care Code 31781 Subseq Hosp Care Lvl 3 Diagnoses Pneumonia J18.1 Laterality: right Lung location: lower lobe of lung Pneumonia type: due to unspecified organism Exposure to COVID-19 virus Z20.822 Chronic hyponatremia E87.1 COPD (chronic obstructive pulmonary disease) J42 COPD type: chronic bronchitis Chronic bronchitis type: unspecified Insulin dependent diabetes mellitus E11.9; Z79.4 BPH (benign prostatic hyperplasia) N40.1; R35.0 Lower urinary tract symptom detail: urinary frequency Lower urinary tract symptom presence: symptoms present Chronic diastolic CHF (congestive heart failure) I50.32 Hypothyroidism E03.9 Hypothyroidism type: acquired CAD (coronary atherosclerotic disease) I25.10 CKD (chronic kidney disease) stage 2, GFR 60-89 ml/min N18.2 Depression F32.9 Essential hypertension I10 PAD (peripheral artery disease) I73.9 Hyperlipidemia E78.2 Hyperlipidemia type: mixed hyperlipidemia GERD (gastroesophageal reflux disease) K21.9 Esophagitis presence: esophagitis presence not specified (1) BPH (benign prostatic hyperplasia) Lower urinary tract symptom detail: urinary frequency Lower urinary tract symptom presence: symptoms present Qualified Code(s): N40.1 - Benign prostatic hyperplasia with lower urinary tract symptoms; R35.0 - Frequency of micturition (2) Hyperlipidemia Hyperlipidemia type: mixed hyperlipidemia Qualified Code(s): E78.2 - Mixed hyperlipidemia (3) Hypothyroidism Hypothyroidism type: acquired Qualified Code(s): E03.9 - Hypothyroidism, unspecified (4) COPD (chronic obstructive pulmonary disease) COPD type: chronic bronchitis Chronic bronchitis type: unspecified Qualified Code(s): J42 - Unspecified chronic bronchitis (5) GERD (gastroesophageal reflux disease) Esophagitis presence: esophagitis presence not specified Qualified Code(s): K21.9 - Gastro-esophageal reflux disease without esophagitis (6) Pneumonia Laterality: right Lung location: lower lobe of lung Pneumonia type: due to unspecified organism Qualified Code(s): J18.1 - Lobar pneumonia, unspecified organism
[2021-11-19] MEDS ORDERED: IRON SUCROSE 300 MG in SODIUM CHLORIDE 0.9% 250 ML IV ONE (18:00)
[2021-11-19] MEDS: ACETAMINOPHEN 325 MG TAB PO PRN (20:03)
[2021-11-19] MEDS ORDERED: ACETAMINOPHEN 325 MG TAB PO STA (20:29)
[2021-11-19] MEDS ORDERED: oxyCODONE/ACETAMINOPHEN 5mg/325mg TAB PO STA (20:33)
--- NOTE | 2021-11-19 20:50 | Consultation Report ---
GASTROENTEROLOGY CONSULTATION DATE OF SERVICE: 11/19/2021 RACE: . ATTENDING PHYSICIAN: Dr. Payne. CONSULTING PHYSICIAN: Dr. Starr. REASON FOR CONSULTATION: Aspiration pneumonia, questionable distal esophageal stricture. HISTORY OF PRESENT ILLNESS: Sam Larson is a 61-year-old male with multiple medical com orbidities including coronary artery disease, CHF, COPD, type 1 diabetes, hypertension, hyperlipidemi a, obstructive sleep apnea, and recurrent aspiration pneumonia secondary to oropharyngeal dysphagia. He presented to the Department of Emergency Medicine today with left-sided chest discomfort and he h as been having treatment for pneumonia since 08/2021. [facility] he was noted to have a white blood cell count of 11.44, hemoglobin of 8.2, hematocrit 25.0, p latelet count of 444. Liver panel was unremarkable with the exception of an alkaline phosphatase frankie vation of 246. He did undergo a chest x-ray upon arrival and was noted to have multifocal opacities in the bilateral lungs compatible with pneumonia and a CTA of the chest, which showed redemonstration of multiple foci of air space opacities compatible with pneumonia. It should be noted that his daug hter did recently test positive for COVID pneumonia and she did recently visit him in the hospital. Of note, the patient did undergo a video fluoroscopic swallow study in 2019, which showed aspiration when swallowing thin liquids and was seen by speech/language pathology today and he was noted to have inconsistent epiglottic inversion throughout his study and silently aspirated large gulps of thin an d nectar thick liquids. In the past, he has had outpatient speech/language pathology therapy and has been taught about safe swallowing strategies including no straws at any time and small sips; however, he does admit to being noncompliant with these measures at times. He was started on antibiotic ther apy with Zosyn and azithromycin and was kept in COVID protocol secondary to recent family exposure. At the time that I saw the patient, he states that he feels slightly improved since he presented, tho ug continues to have some chest pain. He denies any cough at this time and denies any fevers. He f urther denies any heartburn symptoms. He generally states that he has no problem swallowing solids a nd does not feel like food gets stuck. He states that he does take Protonix at home, but does not calvin ve significant reflux disease. He admits to having undergone an upper endoscopy many years ago, elodia carr I do not have the records for this, and he could not provide me with information as to where he calvin d this procedure performed. He denies any further complaints. PAST MEDICAL HISTORY: Extensive and includes angioedema, asthma, blindness, BPH, coronary artery dis ease, diastolic heart failure, hyponatremia, COPD, type 1 diabetes mellitus, GERD, history of subarac hnoid hemorrhage, history of stroke, hyperlipidemia, hypertension, hypothyroidism, history of ischemi c colitis, microcytic anemia, migraine headaches, obstructive sleep apnea, peripheral artery disease, pneumonia, recurrent aspiration pneumonia, sepsis, urinary retention. PAST SURGICAL HISTORY: Includes appendectomy, eye surgery, hand surgery, rectal abscess surgical rep air, tonsillectomy and adenoidectomy, TURP, vasectomy, ventral hernia repair. ALLERGIES: LISINOPRIL AND LORAZEPAM. MEDICATIONS: At present include Tylenol 650 mg p.o. q.4 hours p.r.n., albuterol 2 puffs via inhaler q.i.d. p.r.n., Norvasc 5 mg p.o. q.a.m., aspirin 81 mg p.o. q.a.m., atenolol 50 mg p.o. b.i.d., atorv astatin 80 mg p.o. daily, Zithromax 250 mg IV q.24 hours, Bumex 2 mg p.o. b.i.d., diazepam 2 mg p.o. at bedtime p.r.n., Senokot-S 1 tab p.o. b.i.d., Lovenox 40 mg subQ q.24 hours, famotidine 10 mg p.o. q.a.m., folic acid 1 mg p.o. b.i.d., insulin sliding scale, Levemir subQ at bedtime, Atrovent via inh aler q.i.d., Xopenex 0.63 mg via inhaler q.6 p.r.n., Ismo 30 mg p.o. q.a.m., levothyroxine 100 mcg p. o. daily, levothyroxine 88 mcg p.o. daily, Cozaar 100 mg p.o. q.a.m., Reglan 10 mg p.o. a.c. and at b edtime, nortriptyline 50 mg p.o. at bedtime, Protonix 40 mg p.o. b.i.d., oxycodone 5 mg/325 mg 1 tab p.o. daily, Zosyn 3.375 grams IV q.8 hours, Flomax 0.4 mg p.o. q.p.m. SOCIAL HISTORY: He is . He lives with his , daughter and daughter's 2 dogs. He is disab led. Former smoker. No current tobacco, alcohol, or illicit drug use. FAMILY HISTORY: Negative for IBD; however, it is positive for GI malignancy in his paternal grandfat her. REVIEW OF SYSTEMS: Negative [id number] system review other than pertinent positives listed in the HPI . PHYSICAL EXAMINATION: VITAL SIGNS: Include a temperature of 36.7, pulse 82, respirations 18, blood pressure 165/95, pulse ox 96% on room air. GENERAL: He is awake, cooperative, pleasant, in no acute distress. HEENT: Head normocephalic, atraumatic. CHEST: Decreased breath sounds in bilateral bases. CARDIOVASCULAR: Regular rate and rhythm. ABDOMEN: Soft, nontender, nondistended, positive bowel sounds. There is no appreciable hepatospleno megaly. EXTREMITIES: No clubbing, cyanosis or edema. LABORATORY STUDIES: Reviewed in the HPI. RADIOGRAPHIC STUDIES: Reviewed in the HPI. IMPRESSION: A 61-year-old male with multiple medical comorbidities including recurrent asp iration pneumonia, documented oropharyngeal dysphagia on video swallow study and bedside swallow eval uation, and a history of gastroesophageal reflux disease. PLAN: I think that the patient's recurrent aspiration pneumonia is certainly secondary to his oropha ryngeal dysphagia as noted on multiple evaluations by speech and language pathology. I would recomme nd continuing the patient on twice daily PPI therapy at the present time. When his acute medical con ditions improve, consideration could be given to performing an upper endoscopy, though I think the [place] eld on this would be very low as there is no reason to think that the patient has a distal esophageal stricture that would be leading to his current/recurrent aspiration pneumonia. The patient was in a greement with this and states that he is hesitant to undergo any invasive testing that he does not fe el will provide a meaningful information. I did tell him that there is a possibility that he does calvin ve damage from reflux disease and I think that it is reasonable to do this down the road, though I do not believe it is urgent that he needs this done during this hospitalization. I did encourage him t o follow safe swallowing strategies and to continue outpatient speech/language pathology services. I will follow his clinical course and make further recommendations as needed. Once again, thanks for allowing me to participate in the care of this patient. If you have any further questions, please d o not hesitate in contacting me. Job ID: [id number]
[2021-11-19] MEDS ORDERED: levoFLOXacin/D5W 750 MG/150 ML BAG IV SCH (21:00)
[2021-11-19] MEDS: NORTRIPTYLINE HCL 25 MG CAP PO SCH (21:23)
[2021-11-19] MEDS: guaiFENesin 600 MG TABCR PO SCH (21:23)
[2021-11-19] MEDS: TAMSULOSIN HCL 0.4 MG CAP PO SCH (21:25)
[2021-11-19] MEDS: AZITHROMYCIN 250 MG in DEXTROSE 5% 250 ML IV SCH (22:47)
[2021-11-20] MEDS: PIPERACILLIN/TAZOBACTAM 3.375 GM in DEXTROSE 5% 100 ML IV SCH ×3 (03:52→20:25)
[2021-11-20 05:34] LABS: Basophils # (auto) 0.02 K/uL (0-0.2); Basophils % (auto) 0.2 %; Eosinophils % (auto) 1.1 %; Hematocrit (blood only) 25.8 % (42-52); Hemoglobin 8.3 g/dL (14.0-18.0); Immature Granulocytes # (auto) 0.02 K/uL (0.00-0.02); Immature Granulocytes % (auto) 0.2 %; Lymphocytes # (auto) 1.47 K/uL (1.2-3.4); Lymphocytes % (auto) 15.8 %; Mean Corpuscular Hemoglobin 28.9 pg (25-34); Mean Corpuscular Hgb Conc 32.2 g/dL (32-36); Mean Corpuscular Volume 89.9 fL (80-100); Mean Platelet Volume 8.8 fL (7.4-10.4); Monocytes # (auto) 0.81 K/uL (0.11-0.59); Monocytes % (auto) 8.7 %; Neutrophils # (auto) 6.87 K/uL (1.4-6.5); Platelet Count 505 K/uL (130-400); RDW Coefficient of Variation 14.9 % (11.5-14.5); RDW Standard Deviation 49.5 fL (36.4-46.3); Red Blood Count 2.87 M/uL (4.7-6.1); White Blood Count 9.29 K/uL (4.8-10.8)
[2021-11-20 05:52] LABS: Albumin Globulin Ratio 0.8 (0.9-2); Albumin Level 3.4 gm/dl (3.4-5.0); BUN Creatinine Ratio 15.8 (10-20); Bilirubin,Total 0.3 mg/dl (0.2-1.0); C Reactive Protein 21.29 mg/dl (0-0.5); Calcium 9.2 mg/dl (8.5-10.1); Creatinine Clr Calc Pharmacy 63.8 ml/min; Est GFR (African American) 74.7 ml/min; Est GFR (Non-African American) 64.4 ml/min; Globulin 4.3 gm/dl (2.5-4.0); Potassium 3.8 mmol/L (3.5-5.1); Total Protein 7.7 gm/dl (6.0-8.3)
[2021-11-20] MEDS: LEVOTHYROXINE SODIUM 100 MCG TABLET PO SCH (06:09)
[2021-11-20] MEDS: LEVOTHYROXINE SODIUM 88 MCG TABLET PO SCH (06:09)
[2021-11-20] MEDS ORDERED: INSULIN DETEMIR FLEXPEN/FLEX TOUCH 100 UNITS/ML 3ML SQ SCH (09:00)
[2021-11-20] MEDS ORDERED: BUMETANIDE 1 MG TAB PO ONE (09:00)
[2021-11-20] MEDS: INSULIN ASPART PER UNIT SC SCH ×4 (10:05→20:32)
[2021-11-20] MEDS: UMECLIDINIUM/VILANTEROL 62.5/25MCG 7 PUFFS/INHALER INH SCH (10:10)
[2021-11-20] MEDS: DOCUSATE SODIUM/SENNA 50/8.6MG TAB PO SCH ×2 (10:14→20:22)
[2021-11-20] MEDS: FAMOTIDINE 10 MG TABLET PO SCH (10:14)
[2021-11-20] MEDS: ASPIRIN 81 MG ECTAB PO SCH (10:14)
[2021-11-20] MEDS: PANTOprazole 40 MG TAB PO SCH ×2 (10:15→20:22)
[2021-11-20] MEDS: ATENOLOL 50 MG TABLET PO SCH ×2 (10:15→20:21)
[2021-11-20] MEDS: amLODIPine BESYLATE 5 MG TAB PO SCH (10:15)
[2021-11-20] MEDS: ATORVASTATIN 40 MG TAB PO SCH (10:15)
[2021-11-20] MEDS: FOLIC ACID 1 MG TAB PO SCH ×2 (10:16→20:21)
[2021-11-20] MEDS: LOSARTAN POTASSIUM 50 MG TAB PO SCH (10:16)
[2021-11-20] MEDS: ISOSORBIDE MONO EXTENDED REL 30 MG TABCR PO SCH (10:16)
[2021-11-20] MEDS: guaiFENesin 600 MG TABCR PO SCH ×2 (10:17→20:21)
[2021-11-20] MEDS: METOCLOPRAMIDE HCL 10 MG TABLET PO SCH ×4 (10:17→20:22)
[2021-11-20] MEDS: BUMETANIDE 1 MG TAB PO SCH ×2 (10:17→16:46)
[2021-11-20] MEDS: ACETAMINOPHEN 325 MG TAB PO PRN (10:46)
[2021-11-20] MEDS: oxyCODONE/ACETAMINOPHEN 5mg/325mg TAB PO PRN (17:09)
--- NOTE | 2021-11-20 19:05 | Hospitalist Progress Note ---
Date of Service November 20, 2021 Assessment & Plan (1) Pneumonia: Plan: 61yo male with multiple medical comorbidities presenting with left sided chest discomfort. He has had ongoing PNA since August 2021 and has completed two courses of antibiotics (Doxycycline and Cefdinir) and was started on Augmentin on 11/14/21. Patient with history of aspiration pneumonia n the past. CT appears to have worsening of left sided infiltrate when compared to prior study from 11/14/21. Redemonstration of multiple foci of airspace opacities compatible with pneumonia. Patient is afebrile at present, HD stable. No respiratory distress. Adequate oxygenation on room air. Mildly elevated WBC count at 11.44 with neutrophil predominance Procalcitonin = 0.33 continue Zithromax and Zosyn for today, day 3 remains on room air, no fever plan to discharge to home tomorrow doubt this is COVID pneumonia, would be too early in his infection (if in fact he contracted COVID from family) * Also with chronic aspiration --> aspiration precautions, encouraged to stop using straws. * Consult speech. Will also need outpt EGD for concerns for stricture on prior imaging/anemia per GI Incentive spirometer, duonebs prn, supplemental O2 to maintain sats Sputum cx pending --> monitor Also with CHF/hypothyroidism (BNP/TSH elevated, increased Synthroid to 88mcg daily) * --> drinking 2-64oz Cross cups as well as 2-36 oz Gatorades daily when told last admission to limit to 2000ml/daily. Also on 1g BID salt tablets. * --> Will hold sodium chloride for now (also check urine studies/urine sodium), give extra 2mg dose of bumex, fluid restriction. * --> ALP elevation likely 2nd to hepatic congestion --> improved on repeat after extra bumex. * ??Any benefit from adding spironolactone Monitor daily weights, I&Os (2) Exposure to COVID-19 virus: Plan: Patient is fully vaccinated + booster. Exposed to Covid-19 by family member who lives in the home. Last contact was 11/18/21. PCR testing today is NEGATIVE. -Patient to remain on isolation during hospital stay he has a plan to remain isolated from family when he goes home (3) Chronic diastolic CHF (congestive heart failure): Plan: Chronic. -Continue home regimen - Losartan, Isosorbide mononitrate, Atenolol, Bumex Admits to drinking 2-64oz fluid Wally cups, 2-36oz blue Gatorade daily --> Fluid restriction --> Urine studies given prior hx subarach on SSRI and could have SIADH picture as well but appeared to have abd fullness/hepatic congestion/elevated ALP Bumex 2mg BID --> good response, continue (4) Chronic hyponatremia: Plan: Na up to 129 after resuming Bumex, suspect low sodium due to volume overload Bumex 2mg BID (5) COPD (chronic obstructive pulmonary disease): Plan: Chronic. Stable. Patient denies worsening SOB, wheeze. -Continue Trelegy -Continue Xopenex -Continue Ipratropium as needed -Albuterol as needed -Hold Fluticasone in setting of PNA (6) Insulin dependent diabetes mellitus: Plan: Type I DM -Continue home insulin -Goal 100 - 140 Reports sugars 300s in the AM, 200s in afternoon --> suspect needing increased evening insulin continue to monitor BSGS elevated this afternoon, given extra 15 of aspart and consult pharmacy for assitance (7) BPH (benign prostatic hyperplasia): Plan: Chronic. Stable on medications -Continue Flomax 0.4mg po daily -Monitor UOP (8) Hypothyroidism: Plan: Chronic, but did check TSH given chronic hyponatremia. Elevated 2nd to acute illness but appeared more elevated than would expect given stability of pneumonia --> Increased synthroid to 188mcg daily and will need repeat TFT in 4-6 wks outpatient/adjustment as needed (9) CAD (coronary atherosclerotic disease): Plan: Chronic. -Continue home medications, ASA, Atorvastatin, Atenolol, Losartan (10) CKD (chronic kidney disease) stage 2, GFR 60-89 ml/min: Plan: Near baseline -Avoid nephrotoxic agents -Renal dosing where needed -Montior renal function Stable on repeat with increased diuretic as above (11) Depression: Plan: Chronic -Continue Valium qHS -Continue Nortriptyline at home dose (12) Essential hypertension: Plan: Chronic. elevated, improved with extra bumex/fluid restriction, currently 149/61 -Continue Losartan, Amlodipine, Atenolol -Continue to monitor (13) PAD (peripheral artery disease): Plan: Chronic. Stable -Continue ASA -Continue Atorvastatin (14) Hyperlipidemia: Plan: Chronic -Continue Atorvastatin (15) GERD (gastroesophageal reflux disease): Plan: Chronic. Stable on medications -Continue Protonix 40mg po BID -Continue Pepcid 10mg po qAM Plan: F/E/N - Heplock. Monitor electrolytes, Na as above, AHA/CC diet as tolerated Ppx - Lovenox Code - Conditional - no intubation or mechanical ventilation, CPR ok. No prolonged care. Remains in isolation precautions but would avoid placing in unit like 2E as is currently negative and if chance he did not get from family member would not want to expose to unit full of positive patients/increased risk/further isolation Admission and Anticipated Discharge Date Admission Date: November 18, 2021 Subjective patient feeling much better today, he says that he can take a deep breath, no pain on right side of chest he is coughing up mucous he is ambulating without oxygen, feels well eating fine, no nausea, no diarrhea he says his has a plan to keep him isolated at home we discussed that for the time frame, would be too early for him to have PRISCILLA dumas Review of Systems Review of Systems: All systems reviewed & are unremarkable except as noted in Subjective Physical Exam Physical Exam: General: well developed, obese male, no acute distress, comfortable EENT: blind Neck: supple, trachea midline, normal thyroid Lungs: clear to auscultation bilaterally, normal respiratory effort, no accessory muscle use, no distress Heart: regular S1 and S2, no murmur, peripheral pulses normal, capillary refill normal, no edema Abdomen: soft, NT, ND, + BS, no hepatomegaly, normal to percussion Extremities: normal in appearance, no cyanosis, no petechiae, strength is 5/5 bilaterally Neuro: awake, cooperative, moves all extremities, no focal motor deficits, CN II-XII intact, sensation in extremities intact, normal speech Skin: warm, dry, no rash, normal turgor Psych: Awake, alert oriented x 3, euthymic affect Results & Data Results & Data ([facility]) Vital Signs (Past 12 Hours) Vital Signs Pulse Resp BP Pulse Ox 11/20/21 16:37 72 20 131/60 95 Laboratory Results Laboratory Results - last 24 hr 11/19/21 11/20/21 11/20/21 22:43 05:23 05:23 WBC 9.29 RBC 2.87 L Hgb 8.3 L Hct 25.8 L MCV 89.9 MCH 28.9 MCHC 32.2 RDW Std Deviation 49.5 H RDW Coeff of Analisa 14.9 H Plt Count 505 H MPV 8.8 Immature Gran % (Auto) 0.2 Neut % (Auto) 74.0 Lymph % (Auto) 15.8 [place] % (Auto) 8.7 Eos % (Auto) 1.1 Baso % (Auto) 0.2 Neut # (Auto) 6.87 H Lymph # (Auto) 1.47 [place] # (Auto) 0.81 H Eos # (Auto) 0.10 Baso # (Auto) 0.02 Immature Gran # (Auto) 0.02 Sodium 129 L Potassium 3.8 Chloride 91 L Carbon Dioxide 28 Anion Gap 10 BUN 19 Creatinine 1.20 Est Cr Clr Drug Dosing 63.8 Est GFR ( Amer) 74.7 Est GFR (Non-Af Amer) 64.4 BUN/Creatinine Ratio 15.8 Glucose 151 H POC Glucose 300 H Calcium 9.2 Magnesium 2.0 Total Bilirubin 0.3 AST 10 L ALT 11 Alkaline Phosphatase 198 H C-Reactive Protein 21.29 H Total Protein 7.7 Albumin 3.4 Globulin 4.3 H Albumin/Globulin Ratio 0.8 L 11/20/21 11/20/21 11/20/21 08:42 13:03 16:52 WBC RBC Hgb Hct MCV MCH MCHC RDW Std Deviation RDW Coeff of Analisa Plt Count MPV Immature Gran % (Auto) Neut % (Auto) Lymph % (Auto) [place] % (Auto) Eos % (Auto) Baso % (Auto) Neut # (Auto) Lymph # (Auto) [place] # (Auto) Eos # (Auto) Baso # (Auto) Immature Gran # (Auto) Sodium Potassium Chloride Carbon Dioxide Anion Gap BUN Creatinine Est Cr Clr Drug Dosing Est GFR ( Amer) Est GFR (Non-Af Amer) BUN/Creatinine Ratio Glucose POC Glucose 149 H 138 H 88 Calcium Magnesium Total Bilirubin AST ALT Alkaline Phosphatase C-Reactive Protein Total Protein Albumin Globulin Albumin/Globulin Ratio Medications Administered Current Inpatient Medications Acetaminophen (Acetaminophen 325 Mg Tab) 650 mg PO Q4H PRN PRN Reason: pain/fever Stop: 12/18/21 22:44 Last Admin: 11/20/21 10:46 Dose: 650 mg Documented by: Albuterol (Albuterol Hfa 8 Gm Inhaler) 2 puffs INH QID PRN PRN Reason: Shortness Of Breath Or Wheezing Stop: 12/18/21 22:44 Amlodipine Besylate (Amlodipine Besylate 5 Mg Tab) 5 mg PO QAM [facility] Stop: 12/19/21 08:59 Last Admin: 11/20/21 10:15 Dose: 5 mg Documented by: Aspirin (Aspirin 81 Mg Ectab) 81 mg PO QAM [facility] [place] Stop: 12/19/21 08:59 Last Admin: 11/20/21 10:14 Dose: 81 mg Documented by: Atenolol (Atenolol 50 Mg Tablet) 50 mg PO BID [facility] Stop: 12/19/21 08:59 Last Admin: 11/20/21 10:15 Dose: 50 mg Documented by: Atorvastatin Calcium (Atorvastatin 40 Mg Tab) 80 mg PO DAILY [facility] [place] Stop: 12/19/21 08:59 Last Admin: 11/20/21 10:15 Dose: 80 mg Documented by: Bumetanide (Bumetanide 1 Mg Tab) 2 mg PO BID17 [facility] [place] Stop: 12/19/21 08:59 Last Admin: 11/20/21 16:46 Dose: 2 mg Documented by: Dextrose (Dextrose 50% 50 Ml Syringe) 25 - 50 ml IV UD PRN; Protocol PRN Reason: Hypoglycemia Protocol Stop: 12/18/21 22:44 Diazepam (Diazepam 2 Mg Tablet) 2 mg PO HS PRN PRN Reason: Anxiety Stop: 12/18/21 22:44 Diclofenac Sodium (Diclofenac Sod 1% Gel 100 Gm Tube) 2 gm EXT QID PRN PRN Reason: Pain Stop: 12/18/21 22:44 Enoxaparin Sodium (Enoxaparin Inj 40 Mg/0.4 Ml Syr) 40 mg SQ Q24H [facility] [place] Stop: 12/18/21 22:44 Last Admin: 11/19/21 23:23 Dose: 40 mg Documented by: Famotidine (Famotidine 10 Mg Tablet) 10 mg PO QAM [facility] [place] Stop: 12/19/21 08:59 Last Admin: 11/20/21 10:14 Dose: 10 mg Documented by: Folic Acid (Folic Acid 1 Mg Tab) 1 mg PO BID [facility] [place] Stop: 12/19/21 08:59 Last Admin: 11/20/21 10:16 Dose: 1 mg Documented by: Glucagon (Glucagon For Inj 1 Mg Vial) 1 mg SQ UD PRN; Protocol PRN Reason: Hypoglycemia Protocol Stop: 12/18/21 22:44 Glucose (Glucose 10 Tabs/Tube) 4 - 8 tabs PO UD PRN; Protocol PRN Reason: Hypoglycemia Protocol Stop: 12/18/21 22:44 Glucose (Glucose 40% Gel 15 Gm Tube) 15 - 30 gm PO UD PRN; Protocol PRN Reason: Hypoglycemia Protocol Stop: 12/18/21 22:44 Guaifenesin (Guaifenesin 600 Mg Tabcr) 600 mg PO Q12 [facility] [place] Stop: 12/19/21 20:59 Last Admin: 11/20/21 10:17 Dose: 600 mg Documented by: Azithromycin 250 mg/ Dextrose 252.5 mls @ 125 mls/hr IV Q24H [facility] [place] Stop: 11/26/21 20:59 Last Infusion: 11/20/21 00:54 Dose: Infused Documented by: Piperacillin Sod/Tazobactam (Sod 3.375 gm/ Dextrose) 115 mls @ 28.75 mls/hr IV Q8H [facility] [place]; Protocol Stop: 11/26/21 03:59 Last Infusion: 11/20/21 16:02 Dose: Infused Documented by: Insulin Aspart (Insulin Aspart Per Unit) 0 units SC ACHS [facility] [place] Stop: 12/19/21 16:29 Last Admin: 11/20/21 18:05 Dose: 3 units Documented by: Insulin Detemir (Insulin Detemir Flexpen/Flex Touch 100 Units/Ml 3ml) 0 units SQ HS [facility] [place]; Protocol Stop: 12/19/21 20:59 Last Admin: 11/19/21 23:23 Dose: 48 units Documented by: Insulin Detemir (Insulin Detemir Flexpen/Flex Touch 100 Units/Ml 3ml) 38 units SQ QAM [facility] [place] Stop: 12/20/21 08:59 Last Admin: 11/20/21 10:04 Dose: 38 units Documented by: Ipratropium [place] (Ipratropium [place] Neb Soln 0.02% 2.5 Ml Vial) 0.5 mg INH QID PRN PRN Reason: shortness of breath or wheezin Stop: 12/18/21 22:44 Isosorbide Mononitrate (Isosorbide [place] Extended Rel 30 Mg Tabcr) 30 mg PO QAM [facility] [place] Stop: 12/19/21 08:59 Last Admin: 11/20/21 10:16 Dose: 30 mg Documented by: Levalbuterol HCl (Levalbuterol Hcl 0.63 Mg/3 Ml Neb) 0.63 mg INH Q6H PRN; Protocol PRN Reason: shortness of breath or wheezing Stop: 12/18/21 22:44 Last Admin: 11/19/21 00:53 Dose: 0.63 mg Documented by: Levothyroxine Sodium (Levothyroxine Sodium 100 Mcg Tablet) [facility] Stop: 12/20/21 06:29 Last Admin: 11/20/21 06:09 Dose: 100 mcg Documented by: Levothyroxine Sodium (Levothyroxine Sodium 88 Mcg Tablet) [facility] Stop: 12/20/21 06:29 Last Admin: 11/20/21 06:09 Dose: 88 mcg Documented by: Losartan Potassium (Losartan Potassium 50 Mg Tab) 100 mg PO [facility] Stop: 12/19/21 08:59 Last Admin: 11/20/21 10:16 Dose: 100 mg Documented by: Metoclopramide HCl (Metoclopramide Hcl 10 Mg Tablet) 10 mg PO [facility] Stop: 12/19/21 07:29 Last Admin: 11/20/21 16:46 Dose: 10 mg Documented by: Miscellaneous (Carbohydrates For Hypoglycemia ) 15 - 30 gm PO UD PRN PRN Reason: Hypoglycemia Protocol Stop: 12/18/21 22:44 Miscellaneous Information (Piperacill/Tazobac Consult Active) 1 ea N/A UD PRN PRN Reason: Consult Stop: 12/18/21 22:57 Miscellaneous Information (Pharmacy Glycemic Mgmt Consult) 1 ea N/A UD PRN PRN Reason: Consult Stop: 12/19/21 10:58 Nortriptyline HCl (Nortriptyline Hcl 25 Mg Cap) 50 mg PO [facility] Stop: 12/19/21 20:59 Last Admin: 11/19/21 21:23 Dose: 50 mg Documented by: Oxycodone/Acetaminophen (Oxycodone/Acetaminophen 5mg/325mg Tab) 1 tab PO DAILY PRN PRN Reason: Pain Stop: 12/02/21 22:44 Last Admin: 11/20/21 17:09 Dose: 1 tab Documented by: Pantoprazole Sodium (Pantoprazole 40 Mg Tab) 40 mg PO BID [facility] Stop: 12/19/21 08:59 Last Admin: 11/20/21 10:15 Dose: 40 mg Documented by: Promethazine HCl (Promethazine Hcl 25 Mg Tab) 25 mg PO Q6H PRN PRN Reason: nausea and vomiting Stop: 12/18/21 22:44 Senna/Docusate Sodium (Docusate Sodium/Senna 50/8.6mg Tab) 1 tab PO BID [facility] Stop: 12/19/21 08:59 Last Admin: 11/20/21 10:14 Dose: 1 tab Documented by: Sodium Chloride (Sodium Chloride 1 Gm Tablet) 2 gm PO BID [facility] Stop: 12/19/21 08:59 Last Admin: 11/19/21 08:47 Dose: 2 gm Documented by: Tamsulosin HCl (Tamsulosin Hcl 0.4 Mg Cap) 0.4 mg PO QPM [facility] Stop: 12/19/21 20:59 Last Admin: 11/19/21 21:25 Dose: 0.4 mg Documented by: Umeclidinium/Vilanterol (Umeclidinium/Vilanterol 62.5/25mcg 7 Puffs/Inhaler) 1 puffs INH DAILY [facility] Stop: 12/19/21 08:59 Last Admin: 11/20/21 10:10 Dose: 1 puffs Documented by: PG Care Time/CCT Total # of Minutes Spent Total Time Spent with Patient: Total time spent is greater than 50% in coordination of care (as documented) at patient's floor/unit and/or counseling patient: Coding Level of Care Code 53821 Subseq Hosp Care Lvl 2 Diagnoses Pneumonia J18.1 Laterality: right Lung location: lower lobe of lung Pneumonia type: due to unspecified organism Exposure to COVID-19 virus Z20.822 Chronic diastolic CHF (congestive heart failure) I50.32 Chronic hyponatremia E87.1 COPD (chronic obstructive pulmonary disease) J44.9 COPD type: unspecified COPD Insulin dependent diabetes mellitus E11.9; Z79.4 BPH (benign prostatic hyperplasia) N40.1; R35.0 Lower urinary tract symptom presence: symptoms present Lower urinary tract symptom detail: urinary frequency Hypothyroidism E03.9 Hypothyroidism type: acquired CAD (coronary atherosclerotic disease) I25.10 CKD (chronic kidney disease) stage 2, GFR 60-89 ml/min N18.2 Depression F32.9 Essential hypertension I10 PAD (peripheral artery disease) I73.9 Hyperlipidemia E78.2 Hyperlipidemia type: mixed hyperlipidemia GERD (gastroesophageal reflux disease) K21.9 Esophagitis presence: esophagitis presence not specified (1) Pneumonia Laterality: right Lung location: lower lobe of lung Pneumonia type: due to unspecified organism Qualified Code(s): J18.1 - Lobar pneumonia, unspecified organism (2) COPD (chronic obstructive pulmonary disease) COPD type: unspecified COPD Qualified Code(s): J44.9 - Chronic obstructive pulmonary disease, unspecified (3) BPH (benign prostatic hyperplasia) Lower urinary tract symptom presence: symptoms present Lower urinary tract symptom detail: urinary frequency Qualified Code(s): N40.1 - Benign prostatic hyperplasia with lower urinary tract symptoms; R35.0 - Frequency of micturition (4) Hypothyroidism Hypothyroidism type: acquired Qualified Code(s): E03.9 - Hypothyroidism, unspecified (5) Hyperlipidemia Hyperlipidemia type: mixed hyperlipidemia Qualified Code(s): E78.2 - Mixed hyperlipidemia (6) GERD (gastroesophageal reflux disease) Esophagitis presence: esophagitis presence not specified Qualified Code(s): K21.9 - Gastro-esophageal reflux disease without esophagitis
[2021-11-20] MEDS: NORTRIPTYLINE HCL 25 MG CAP PO SCH (20:21)
[2021-11-20] MEDS: TAMSULOSIN HCL 0.4 MG CAP PO SCH (20:21)
[2021-11-20] MEDS: AZITHROMYCIN 250 MG in DEXTROSE 5% 250 ML IV SCH (20:26)
[2021-11-20] MEDS: INSULIN DETEMIR FLEXPEN/FLEX TOUCH 100 UNITS/ML 3ML SQ SCH (20:35)
[2021-11-21] MEDS: ENOXAPARIN INJ 40 MG/0.4 ML SYR SQ SCH (00:42)
[2021-11-21] MEDS: ACETAMINOPHEN 325 MG TAB PO PRN (00:47)
[2021-11-21] MEDS: PIPERACILLIN/TAZOBACTAM 3.375 GM in DEXTROSE 5% 100 ML IV SCH ×2 (03:38→11:41)
[2021-11-21] MEDS: LEVOTHYROXINE SODIUM 100 MCG TABLET PO SCH (06:03)
[2021-11-21] MEDS: LEVOTHYROXINE SODIUM 88 MCG TABLET PO SCH (06:03)
[2021-11-21] MEDS: INSULIN ASPART PER UNIT SC SCH ×2 (07:48→13:32)
[2021-11-21 08:17] LABS: Hematocrit (blood only) 27.8 % (42-52); Hemoglobin 9.1 g/dL (14.0-18.0); Mean Corpuscular Hemoglobin 29.4 pg (25-34); Mean Corpuscular Hgb Conc 32.7 g/dL (32-36); Mean Corpuscular Volume 89.7 fL (80-100); Mean Platelet Volume 8.7 fL (7.4-10.4); Platelet Count 512 K/uL (130-400); RDW Standard Deviation 49.6 fL (36.4-46.3)
[2021-11-21 08:42] LABS: BUN Creatinine Ratio 16.8 (10-20); C Reactive Protein 13.57 mg/dl (0-0.5); Calcium 9.2 mg/dl (8.5-10.1); Creatinine Clr Calc Pharmacy 61.3 ml/min; Est GFR (African American) 71.1 ml/min; Est GFR (Non-African American) 61.3 ml/min; Potassium 3.7 mmol/L (3.5-5.1)
[2021-11-21] MEDS ORDERED: INSULIN DETEMIR FLEXPEN/FLEX TOUCH 100 UNITS/ML 3ML SQ SCH (09:00)
[2021-11-21] MEDS: METOCLOPRAMIDE HCL 10 MG TABLET PO SCH ×2 (09:54→11:40)
[2021-11-21] MEDS: ATENOLOL 50 MG TABLET PO SCH (09:54)
[2021-11-21] MEDS: amLODIPine BESYLATE 5 MG TAB PO SCH (09:54)
[2021-11-21] MEDS: ASPIRIN 81 MG ECTAB PO SCH (09:54)
[2021-11-21] MEDS: DOCUSATE SODIUM/SENNA 50/8.6MG TAB PO SCH (09:55)
[2021-11-21] MEDS: FAMOTIDINE 10 MG TABLET PO SCH (09:55)
[2021-11-21] MEDS: ATORVASTATIN 40 MG TAB PO SCH (09:55)
[2021-11-21] MEDS: BUMETANIDE 1 MG TAB PO SCH (09:55)
[2021-11-21] MEDS: FOLIC ACID 1 MG TAB PO SCH (09:55)
[2021-11-21] MEDS: LOSARTAN POTASSIUM 50 MG TAB PO SCH (09:56)
[2021-11-21] MEDS: ISOSORBIDE MONO EXTENDED REL 30 MG TABCR PO SCH (09:56)
[2021-11-21] MEDS: UMECLIDINIUM/VILANTEROL 62.5/25MCG 7 PUFFS/INHALER INH SCH (09:56)
[2021-11-21] MEDS: guaiFENesin 600 MG TABCR PO SCH (09:56)
[2021-11-21] MEDS: PANTOprazole 40 MG TAB PO SCH (09:56)
--- NOTE | 2021-11-21 11:12 | Pharmacy Report ---
Pharmacy Glycemic Short Note 2 - Date of Service November 21, 2021 - Glycemic Short BSG Results (Last 24 hours): 11/20/21 11/20/21 11/20/21 13:03 16:52 20:24 Glucose POC Glucose 138 H 88 131 H 11/21/21 11/21/21 11/21/21 07:39 08:03 08:07 Glucose 93 POC Glucose 68 L* 103 H OUTPATIENT ANTIDIABETIC REGIMEN: * Levemir 38 units bid, aspart SSI ASSESSMENT: 11/21 * Stressors stable * Slight hypoglycemia noted this AM - will be modest with reduction given T1DM and decrease AM basal insulin by 20%. Will maintain 20% reduction with PM dose as well, unless BSG's rebound >180 mg/dL. * Post-prandial BSG's ranged 88-138 mg/dL yesterday. No change to Novolog 11/19 * 61 year old admitted with pneumonia. Type 1 DM per notes * BSGs elevated at time of consult at 325 mg/dL - Given already home Levemir dose this AM, 10 units IV insulin, 15 units of correctional insulin given an hour ago * Plan to tighten CF/CR with dinner time to stress of 3 dosing. Unclear if elevated BSGs related to stress d/t infection. No steroids ordered at this time PLAN FOR INPATIENT GLYCEMIC CONTROL: * Basal insulin * Lantus 30 units this AM then 30-38 units HS, depending on BSG * Bolus insulin * NovoLog per scale ACHS or Q6hrs while NPO * Goal Range: Low 110 mg/dL - High 140 mg/dL * Correction Factor: 15 mg/dL/unit * Nutritional / Prandial insulin per carb ratio of 1 unit per 5 grams CHO consumed PLAN FOR DISCHARGE: * tbd
--- NOTE | 2021-11-21 13:08 | Discharge Summary ---
Date of Service November 21, 2021 Admission HPI Per Admitting Provider Sam Larson is a pleasant 61yo C male with multiple medical comorbidities to include CAD, CHF, COPD, DM-I, HTN, HLP, LUZMA. Patient has had a prolonged course of PNA. He first presented to [facility] on 09/11/21 with complaint of fever, chills, cough. He had a CXR performed which revealed a RLL infiltrate. His Covid-19 test and influenza were NEGATIVE. He was prescribed Doxycycline 100mg po BID x 10 day course which he completed without difficulty. He was seen in the ER on 10/01/21 with complaint of fever and cough. He had a CTA of the chest which revealed RML PNA. He was prescribed Cefdinir 300mg po BID x 10 day course which he completed. Patient has had some left sided pleuritic chest discomfort ongoing for the last 4-5 days. He first noticed the chest pain when he was bending over to pick s omething up. Since then it occurs with deep breathing, sometimes with movement. It is improved now in comparison to 3 days ago but is still present. He has persistent cough which is productive for thick green/yellow sputum. No hemoptysis. He has frequent nausea with one episode of non-bloody emesis as well as elevated temperatures - states that his baseline body temperature is 97.6 and he has been running 99's. He had a CT of the Chest ordered by Dr. Orosco completed on 11/14/21 which revealed partial clearing of RML consolidation when compared to study from 10/01/21. Extensive patchy/nodular airspace consolidation is seen in both lungs typical for infectious/inflammatory pneumonitis. He was started on Augmentin on 11/14/21 and has been taking as prescribed. Patient's daughter recently tested POSITIVE for Covid-19. She lives with patient and his . They have been trying to remain in the home but have not been quarantining. Patient is fully vaccinated + Booster. Last contact with his daughter was today 11/18/21. No additional complaints at this time. Er Course: [facility] Principal Diagnosis Aspiration pneumonia Acute on chronic diastolic heart failure Discharge Exam General: well developed, obese male, no acute distress, comfortable EENT: blind Neck: supple, trachea midline, normal thyroid Lungs: clear to auscultation bilaterally, normal respiratory effort, no accessory muscle use, no distress Heart: regular S1 and S2, no murmur, peripheral pulses normal, capillary refill normal, no edema Abdomen: soft, NT, ND, + BS, no hepatomegaly, normal to percussion Extremities: normal in appearance, no cyanosis, no petechiae, strength is 5/5 bilaterally Neuro: awake, cooperative, moves all extremities, no focal motor deficits, CN II-XII intact, sensation in extremities intact, normal speech Skin: warm, dry, no rash, normal turgor Psych: Awake, alert oriented x 3, euthymic affect Discharge Data Allergies Allergy/AdvReac Type Severity Reaction Status Date / Time lisinopril Allergy Severe " TONGUE Verified 11/18/21 18:05 SWELLS" lorazepam AdvReac Unknown Hallucinati Verified 11/18/21 18:05 ons Consultations 11/18/21 21:09 ED Decision to Admit Stat 11/19/21 09:03 Consult Gastroenterology Routine Ordered Studies 11/18/21 17:23 CT angio chest PE protocol Stat Hospital Course (1) Pneumonia: 61yo male with multiple medical comorbidities presenting with left sided chest discomfort. He has had ongoing PNA since August 2021 and has completed two courses of antibiotics (Doxycycline and Cefdinir) and was started on Augmentin on 11/14/21. Patient with history of aspiration pneumonia n the past. CT appears to have worsening of left sided infiltrate when compared to prior study from 11/14/21. Redemonstration of multiple foci of airspace opacities compatible with pneumonia. Patient is afebrile at present, HD stable. No respiratory distress. Adequate oxygenation on room air. Mildly elevated WBC count at 11.44 with neutrophil predominance Procalcitonin = 0.33 treated with Zithromax and Zosyn, day 4 remains on room air, no fever for several days doubt this is COVID pneumonia, would be too early in his infection (if in fact he contracted COVID from family) send home on Levaquin as he had failed Augmentin prior to admission * Also with chronic aspiration --> aspiration precautions, encouraged to stop using straws. * Consult speech. Will also need outpt EGD for concerns for stricture on prior imaging/anemia per GI Incentive spirometer, duonebs prn, supplemental O2 to maintain sats Sputum cx pending --> monitor Also with CHF/hypothyroidism (BNP/TSH elevated, increased Synthroid to 88mcg daily) * --> drinking 2-64oz Cross cups as well as 2-36 oz Gatorades daily when told last admission to limit to 2000ml/daily. Also on 1g BID salt tablets. diuresed well with Bumex and fluid restriction stressed importance of compliance with fluid restriction, taking Bumex, will stop sodium chloride as low sodium likely due to too much fluid intake he admits he has issues with this (2) Exposure to COVID-19 virus: Patient is fully vaccinated + booster. Exposed to Covid-19 by family member who lives in the home. Last contact was 11/18/21. PCR testing today is NEGATIVE. -Patient to remain on isolation during hospital stay he has a plan to remain isolated from family when he goes home can repeat testing in a few days, monitor for any worsening symptoms (3) Chronic diastolic CHF (congestive heart failure): Chronic. -Continue home regimen - Losartan, Isosorbide mononitrate, Atenolol, Bumex Admits to drinking 2-64oz fluid Wally cups, 2-36oz blue Gatorade daily --> Fluid restriction stressed, daily weights needs to restrict himself to 40 oz total, needs to space out fluid intake he says this will be difficult for him told him he will be back in the hospital (4) Chronic hyponatremia: Na came up quickly with fluid restriction and resuming Bumex suspect the hyponatremia is from volume overload, clearly drinking too much going forward, will stress fluid restriction, continue Bumex and hold sodium chloride tablets (5) COPD (chronic obstructive pulmonary disease): Chronic. Stable. Patient denies worsening SOB, wheeze. -Continue Trelegy -Continue Xopenex -Continue Ipratropium as needed -Albuterol as needed -Hold Fluticasone in setting of PNA (6) Insulin dependent diabetes mellitus: Type I DM -Continue home insulin -Goal 100 - 140 (7) BPH (benign prostatic hyperplasia): Chronic. Stable on medications -Continue Flomax 0.4mg po daily -Monitor UOP (8) Hypothyroidism: follow up with PCP recommend checking TSH when medically stable (9) CAD (coronary atherosclerotic disease): Chronic. -Continue home medications, ASA, Atorvastatin, Atenolol, Losartan (10) CKD (chronic kidney disease) stage 2, GFR 60-89 ml/min: Cr at baseline -Avoid nephrotoxic agents -Renal dosing where needed -Montior renal function Stable on repeat with increased diuretic as above (11) Depression: Chronic -Continue Valium qHS -Continue Nortriptyline at home dose (12) Essential hypertension: Chronic. stable -Continue Losartan, Amlodipine, Atenolol -Continue to monitor (13) PAD (peripheral artery disease): Chronic. Stable -Continue ASA -Continue Atorvastatin (14) Hyperlipidemia: Chronic -Continue Atorvastatin (15) GERD (gastroesophageal reflux disease): Chronic. Stable on medications -Continue Protonix 40mg po BID -Continue Pepcid 10mg po qAM Total Time Total Time Spent Total Time Spent (In Minutes): 35 minutes Discharge Plan Discharge Items Patient Disposition: Home - Self-Care Reason For Visit: PNA Discharge Diagnosis: Aspiration pneumonia Acute on chronic heart failure Hyponatremia Condition on Discharge: Good Goals: complete course of antibiotics follow fluid restriction Activity: Per Instructions section Weightbearing: Full weightbearing Non-emergency contact: Primary Care Provider Call non-emergency contact if: you have any medication questions and your symptoms worsen Follow-up/Referrals: Josh Squires III, CRNP [Primary Care Provider] - (one week) Diet: Carb Consistent or DM2 and Heart Healthy Fluids: 2000ml (8 cups) Addtl Attending Provider Instructions: Medications: - LEVOFLOXACIN: take for 7 more days starting tomorrow, take 750mg daily, this will finish treatment for pneumonia - SODIUM CHLORIDE: stop taking this, we held sodium tablets while here and sodium came up Aspiration pneumonia recurrent issue, you need to stop drinking from a straw as this can lead to aspiration sit fully upright when eating and remain upright for 30 minutes after eating take your time eating, small bites brush your teeth 2-3 times a day for proper oral hygiene and limit oral bact santana responded well to Zosyn and Zithromax IV while here, will use Levofloxacin on discharge since you failed Augmentin prior to admission Acute on chronic heart failure you NEED to follow a fluid restriction of 2000mL a day which a total of 64 ounces for the entire day you need to take Bumex as prescribed you need to weigh yourself every morning to make sure you are not retaining fluid, notify your PCP if weight goes up by 2-3 lbs from baseline COVID exposure: recommend repeat testing by the end of the week remain in isolation until that time no signs of COVID pneumonia and your COVID test was negative but it may have been too early since you were just exposed prior to admission monitor your breathing, if oxygen levels are below 89% on room air then return to the ED for evaluation and testing Pending Studies at Discharge: No Stand-Alone Forms: [facility], Smoking Cessation Medications and DC Order Prescriptions: Continued tamsulosin [Flomax] 0.4 mg capsule 0.4 mg PO QPM Qty: 90 RF: 3 promethazine 25 mg tablet 25 mg PO Q6H PRN (Reason: nausea and vomiting) Qty: 28 RF: 5 levothyroxine 175 mcg tablet 175 mcg PO DAILY Qty: 90 RF: 1 pantoprazole [Protonix] 40 mg tablet,delayed release (DR/EC) 40 mg PO BID Qty: 180 RF: 1 atorvastatin 80 mg tablet 80 mg PO DAILY Qty: 90 RF: 3 Trelegy Ellipta 100-62.5-25 mcg blister with device 1 inh INH DAILY Qty: 180 RF: 1 bumetanide 1 mg tablet 2 mg PO BID Qty: 120 RF: 11 folic acid 1 mg tablet 1 mg PO BID Qty: 180 RF: 2 losartan 100 mg tablet 100 mg PO QAM Qty: 90 RF: 1 atenolol [Tenormin] 50 mg tablet 50 mg PO BID Qty: 60 RF: 5 mometasone 0.1 % ointment 1 applic topical DAILY PRN (Reason: skin irritation) Qty: 45 RF: 1 amlodipine 5 mg tablet 5 mg PO QAM Qty: 90 RF: 1 isosorbide mononitrate 30 mg tablet extended release 24 hr 30 mg PO QAM Qty: 90 RF: 1 metoclopramide HCl [Reglan] 10 mg tablet 10 mg PO QID Qty: 120 RF: 5 oxycodone-acetaminophen [Percocet] 5-325 mg tablet 1 - 2 tab PO DAILY PRN (Reason: Pain) Qty: 60 RF: 0 diazepam [Valium] 2 mg tablet 2 mg PO HS PRN (Reason: Anxiety) Qty: 30 RF: 1 sennosides-docusate sodium 8.6-50 mg tablet 1 tab PO BID RF: 0 levalbuterol HCl 0.63 mg/3 mL solution for nebulization 0.63 mg inhalation Q6H PRN (Reason: shortness of breath or wheezing) Qty: 360 RF: 5 ipratropium bromide 0.02 % solution 2.5 ml inhalation QID PRN (Reason: shortness of breath or wheezing) Qty: 62.5 RF: 0 Fiasp FlexTouch U-100 Insulin 100 unit/mL (3 mL) insulin pen See Rx Instructions subcut QAM RF: 0 aspirin 81 mg tablet,delayed release (DR/EC) 81 mg PO QAM RF: 0 ferrous sulfate 325 mg (65 mg iron) tablet 325 mg PO BID RF: 0 diclofenac sodium 1 % gel 2 g topical QID PRN (Reason: Pain) RF: 0 flaxseed oil Oil 1,200 ea miscellaneous BID RF: 0 glucosamine sulfate [Glucosamine] 500 mg Tablet 500 mg PO DAILY RF: 0 famotidine 10 mg Tablet 10 mg PO QAM RF: 0 simethicone 125 mg Tablet,Chewable 250 mg PO DIRECTED PRN (Reason: Gastric Reflux) RF: 0 acetaminophen [Tylenol] 325 mg Capsule 325 mg PO Q6H PRN (Reason: Pain) RF: 0 Probiotic 3 billion cell Capsule 3,000 mmu cells PO QAM RF: 0 magnesium 200 mg tablet 400 mg PO QAM RF: 0 nortriptyline 25 mg capsule 50 mg PO HS RF: 0 albuterol sulfate 90 mcg/actuation HFA aerosol inhaler 2 puff inhalation QID PRN (Reason: Shortness Of Breath Or Wheezing) RF: 0 Levemir FlexTouch U-100 Insuln 100 unit/mL (3 mL) insulin pen 38 unit subcut AMPM RF: 0 Discontinued sodium chloride 1 gram tablet 2,000 mg PO BID Qty: 60 RF: 5 amoxicillin-pot clavulanate [Augmentin] 875-125 mg tablet 1 tab PO BID Qty: 20 RF: 0 Discharge Orders: Discharge Order (Routine); Ordered 11/21/21 Ordered By: Dharmesh Galdamez/Other Patient Handouts: What Is Pneumonia?, Treating Pneumonia, ED Pneumonia (Adult) Admission Data Admit Date/Time: 11/18/21 22:10 Attending Provider: Dharmesh Ledbetter Admit Provider: Cammy Payne Primary Care Provider: Josh Squires III Other Providers: Cammy Payne ; Josh Starr Other Interventions: Discharge Summary Assessment (RN) Last Done: 11/21/21 14:15 Coding Level of Care Code D/C DAY MANAGEMENT >30 MINS Diagnoses Pneumonia J18.1 Laterality: right Lung location: lower lobe of lung Pneumonia type: due to unspecified organism Exposure to COVID-19 virus Z20.822 Chronic diastolic CHF (congestive heart failure) I50.32 Chronic hyponatremia E87.1 COPD (chronic obstructive pulmonary disease) J44.9 COPD type: unspecified COPD Insulin dependent diabetes mellitus E11.9; Z79.4 BPH (benign prostatic hyperplasia) N40.1; R35.0 Lower urinary tract symptom detail: urinary frequency Lower urinary tract symptom presence: symptoms present Hypothyroidism E03.9 Hypothyroidism type: acquired CAD (coronary atherosclerotic disease) I25.10 CKD (chronic kidney disease) stage 2, GFR 60-89 ml/min N18.2 Depression F32.9 Essential hypertension I10 PAD (peripheral artery disease) I73.9 Hyperlipidemia E78.2 Hyperlipidemia type: mixed hyperlipidemia GERD (gastroesophageal reflux disease) K21.9 Esophagitis presence: esophagitis presence not specified
[2021-11-24 21:56] LABS: Fungitell (1-3)-B-D-Glucan <31 pg/mL
== END 2021-11-21 14:26 | disposition home or self-care (01) | DRG 177 ==
LOC: ED 16:13 → EDINP 22:10 → SUATTDRO 22:10 → EDINP 22:44
DX: E87.1 Hypo-osmolality and hyponatremia; R35.0 Frequency of micturition; H54.8 Legal blindness, as defined in USA; J45.909 Unspecified asthma, uncomplicated; G47.33 Obstructive sleep apnea (adult) (pediatric); R13.12 Dysphagia, oropharyngeal phase; E03.9 Hypothyroidism, unspecified; E78.5 Hyperlipidemia, unspecified; J44.9 Chronic obstructive pulmonary disease, unspecified; J69.0 Pneumonitis due to inhalation of food and vomit; F32.9 Major depressive disorder, single episode, unspecified; I50.33 Acute on chronic diastolic (congestive) heart failure; I25.10 Atherosclerotic heart disease of native coronary artery without angina pectoris; Z88.8 Allergy status to other drugs, medicaments and biological substances; Z79.899 Other long term (current) drug therapy; N40.1 Benign prostatic hyperplasia with lower urinary tract symptoms; Z79.4 Long term (current) use of insulin; E10.22 Type 1 diabetes mellitus with diabetic chronic kidney disease; R33.9 Retention of urine, unspecified; I13.0 Hypertensive heart and chronic kidney disease with heart failure and stage 1 through stage 4 chronic kidney disease, or unspecified chronic kidney disease; Z20.822 Contact with and (suspected) exposure to COVID-19; N18.2 Chronic kidney disease, stage 2 (mild); K21.9 Gastro-esophageal reflux disease without esophagitis; Z79.890 Hormone replacement therapy; E10.51 Type 1 diabetes mellitus with diabetic peripheral angiopathy without gangrene; Z99.89 Dependence on other enabling machines and devices; Z87.891 Personal history of nicotine dependence; Z79.82 Long term (current) use of aspirin

== ENCOUNTER 2022-09-01 08:17 | Observation (INO) ==
[2022-09-01] MEDS ORDERED: ACETAMINOPHEN 1,000 MG/100 ML VIAL IV STA (08:39)
[2022-09-01] MEDS ORDERED: ONDANSETRON INJ 2 MG/ML 2 ML VIAL IV STA (08:39)
[2022-09-01] MEDS ORDERED: SODIUM CHLORIDE 0.9% 1000ML 1,000 ML IV SCH (08:45)
[2022-09-01 09:15] LABS: Hematocrit (blood only) 29.8 % (40.1-51.0); Hemoglobin 10.3 g/dl (14.0-18.0); Mean Corpuscular Hgb Conc 34.6 g/dL (32.0-36.0); Mean Corpuscular Volume 92.5 fL (80.0-100.0); Mean Platelet Volume 10.4 fL (9.4-12.4); Platelet Count 255 K/uL (130-400); RDW Standard Deviation 43.9 fL (36.4-46.3); Red Blood Count 3.22 M/uL (4.63-6.08); White Blood Count 7.69 K/ul (4.8-10.8)
[2022-09-01 09:16] LABS: Basophils # (auto) 0.03 K/uL (0-0.2); Basophils % (auto) 0.4 %; Eosinophils # (auto) 0.06 K/uL (0-0.50); Eosinophils % (auto) 0.8 %; Immature Granulocytes # (auto) 0.03 K/uL (0.00-0.02); Immature Granulocytes % (auto) 0.4 %; Lymphocytes # (auto) 1.09 K/uL (1.2-3.4); Lymphocytes % (auto) 14.2 %; Monocytes # (auto) 0.63 K/uL (0.24-0.82); Monocytes % (auto) 8.2 %; Neutrophils # (auto) 5.85 K/uL (1.4-6.5)
--- NOTE | 2022-09-01 09:22 | XRay Report ---
SINGLE VIEW CHEST CLINICAL HISTORY: Generalized weakness. FINDINGS: 2 AP, portable, upright chest radiographs are compared to study dated 08/28/2022 and correla jorge with chest CT dated 03/17/2022. The examination is degraded by portable technique and apical lordo tic positioning. The heart is top normal for projection. Chronic interstitial thickening is similar t o previous. There is bibasilar scarring/atelectasis. The lungs and pleural spaces are otherwise clear . No pneumothorax is seen. The skeletal structures are osteopenic. The bony thorax is grossly intact. IMPRESSION: No active disease in the chest. ACT 112: Negative or not required by law. Electronically signed by: Dar Chapin M.D. 09/01/2022 9:20 AM
[2022-09-01 09:31] LABS: Troponin I High Sensitivity 17.1 pg/ml (0-20)
[2022-09-01] MEDS ORDERED: OPTIRAY 350 100ml IV ONE (09:42)
[2022-09-01 09:53] LABS: Alanine Aminotransferase 20 U/L (7-52); Albumin Globulin Ratio 0.9 (0.9-2); Albumin Level 3.8 gm/dl (3.4-5.0); Alkaline Phosphatase 157 U/L (34-104); BUN Creatinine Ratio 22.1 (10-20); Bilirubin,Total 0.7 mg/dl (0.2-1.0); Blood Urea Nitrogen 25 mg/dl (6-23); Calcium 9.2 mg/dl (8.5-10.1); Carbon Dioxide 24 mmol/L (21-32); Chloride 96 mmol/L (98-107); Creatinine Clr Calc Pharmacy 76.5 ml/min; Est GFR (African American) 79.7 ml/min; Est GFR (Non-African American) 68.8 ml/min; Globulin 4.2 gm/dl (2.5-4.0); Glucose 184 mg/dl (70-99(Fasting))
--- NOTE | 2022-09-01 09:55 | CT Scan Report ---
CT SCAN OF THE BRAIN WITHOUT IV CONTRAST CLINICAL HISTORY: Fall. COMPARISON STUDY: CT of the brain dated 09/24/2017. TECHNIQUE: Unenhanced axial CT scan of the brain is performed from the vertex to the skull base. A do se lowering technique was utilized adhering to the principles of ALARA. FINDINGS: Brain parenchyma: There is age-related involutional change noting mild subcortical and periventricula r microangiopathic disease. There is no hemorrhage, mass effect, or evidence of acute territorial isc hemia by CT criteria. Desai-white matter differentiation is preserved. No extra-axial fluid collection is seen. Ventricles, sulci, cisterns: Prominent secondary to involutional change. Intracranial vasculature: There is atherosclerotic calcification of the cavernous carotid arteries. Calvarium: The skeletal structures are osteopenic. No depressed calvarial fracture is identified. Sinuses and mastoids: The visualized paranasal sinuses are clear. The mastoid air cells are well pneu matized. Orbits: The bony orbits are grossly intact. Chronic deformity calcification of the globes is unchange d. IMPRESSION: There is no hemorrhage, mass effect, or evidence of acute territorial ischemia by CT nolberto dillon. ACT 112: Negative or not required by law. Electronically signed by: Dar Chapin M.D. 09/01/2022 9:52 AM
--- NOTE | 2022-09-01 09:57 | CT Scan Report ---
FACIAL BONE CT WITH CONTRAST CLINICAL HISTORY: Evaluate for left maxillary abscess. COMPARISON STUDY: Facial bone CT August 29, 2022. TECHNIQUE: Axial images of the face were obtained following intravenous injection of 87 cc of Optiray 350 IV. Sagittal and coronal reconstructions were viewed. Automated exposure control was utilized fo r the study. A dose lowering technique was utilized adhering to the principles of ALARA. FINDINGS: Please note that the head CT will be reported separately. Chronic deformity of the globes i s incidentally noted. Visualized portions of the brain parenchyma are unremarkable. Multiple dental a malgams are present. There are several periapical lucencies/abscesses, including periapical lucencies of the left first and second mandibular molars. Note is made of a rim-enhancing fluid collection faith ng the inner aspect of the body of the left hemimandible which contains multiple locules of gas. This collection was not evident on prior CT. This collection measures 2.5 x 1.8 cm. There is moderate adj acent inflammation which extends into the floor the mouth with mild mass effect. No additional fluid collections are present. Epiglottis is normal. Parotid gland are unremarkable. Right submandibular gl and is unremarkable. Moderate inflammation adjacent to the left submandibular gland is likely related to the odontogenic process. IMPRESSION: Interval development of a 2.5 x 1.8 cm rim-enhancing fluid and gas containing collection along the in ner aspect of the body of the left hemimandible since prior CT consistent with an abscess, odontogeni c in etiology. Small periapical lucencies/abscesses of the left first and second mandibular molars. M oderate adjacent inflammation with mass effect. ACT 112: Negative or not required by law. Electronically signed by: Bear Early M.D. 09/01/2022 9:56 AM
--- NOTE | 2022-09-01 10:31 | History & Physical Report ---
Date of Service September 01, 2022 Assessment & Plan (1) Submandibular space infection: Plan: Odontogenic infection S/p root canal 08/29/2022 CTface: Interval development of 2.5 x 1.8 cm rim-enhancing fluid and gas containing collection along the left hemimandible since prior CT 08/29/2022 consistent with odontogenic abscess, small periapical lucency/abscess of the left first and second mandibular molars noted. Moderate adjacent inflammation with mass-effect. CThead: No hemorrhage, mass-effect, or acute stroke CXR: No acute findings No leukocytosis. Hemoglobin 10.3 from prior 11.9 Sodium/potassium pending redraw due to hemolysis. Patient with chronic hyponatremia COVID-negative Blood cultures 08/28/2022 1 set of 2 (2/4) positive for [employer], suspected at the time to be contamination Repeat blood cultures pending. Given prior blood cultures positive and odontogenic infection will cover with Unasyn plus vancomycin Patient with tacky mucous membranes, history of diastolic CHF. We will hold Bumex for mild volume contraction, gentle IV fluids for 1 bag On exam patient is with mandibular and jaw swelling, but no deep neck involvement/uvular deflection or wheezing/stridor. We will follow on PCU for airway monitoring, no evidence of airway compromise at ER assessment. (2) CKD (chronic kidney disease) stage 2, GFR 60-89 ml/min: Plan: CKD 2/2 DM1 Creatinine baseline appears approximately 1.11 0.3 Admitting creatinine 1.13. Slightly elevated ratio. -Renal dysfunction is from type I DM Renally dose medications if needed, GFR on admit 76.5 (3) Hypertension: Plan: Hypertension Losartan as otherwise noted Continue amlodipine 2.5 mg daily Atenolol as otherwise noted (4) Diabetes mellitus type 1, uncontrolled: Plan: Type 1 diabetes mellitus Admitting BSG 184 - Home Insulin: 38u levimir AM, 46u levimir qHS, 1:4 carb ratio + SSI 2:20 over 150 Basal bolus with SSI on admission, pharmacy consulted given high requirements with infection and potential need for steroids Glucose checks AC/at bedtime, dose reduce Lantus while n.p.o. (5) Acquired blindness: Plan: Acquired Blindness - 2/2 diabetic retinopathy - 9200x laser surgery tx in retina, 44 cryotherapy in retinas for diabetic retinopathy @ age 25. - CUrrently blind in both eyes, can not even see light/shadows (6) History of stroke: Plan: Past CVA - 2013 CVA with subarachnoid hemorrhage. 2 older strokes noted on MRI - Went ot [place] for neurosurgery. Did not have surgery, was followed with supportive care - No residual focal deficits, but does have some cognitive impairment and memory problems. (7) Hypothyroidism: Plan: Hypothyroidism Admitting TSH normal Continue Synthroid 175 mcg daily (8) Hyperlipidemia: Plan: Hyperlipidemia Continue to statin 80 mg daily, no transaminitis on admit (9) Chronic diastolic CHF (congestive heart failure): Plan: CAD with diastolic CHF Admitting EKG: Normal sinus rhythm, QTC 440, no ST segment changes TTE 04/14/2021: EF 60-65%. No regional wall motion abnormalities. Mild mitral regurg. Mild concentric LVH. Technically challenging study. Slightly volume contracted, 1 bag of 80 cc gentle fluid given. If developing overload stop fluids, resume Bumex Aspirin 81 mg daily Isosorbide mononitrate 30 mg every morning Losartan 100 mg every morning Continue atenolol 50 mg p.o. twice daily (10) Sleep apnea: Plan: LUZMA CPAP nightly (11) COPD (chronic obstructive pulmonary disease): Plan: COPD PFT 12/2020: FVC 85% predicted, FEV1 57% predicted, FEV1/FVC actual 53% predicted 67, moderate airflow obstruction without bronchodilator response stable from prior study. Albuterol as needed Continue Trelegy/formulary equivalent (12) GERD (gastroesophageal reflux disease): Plan: GERD Protonix daily Sucralfate 1 g p.o. twice daily (13) Elevated bilirubin: Plan: Prior Elevated bilirubin Following with GI as outpatient. - Bili normalized, no transaminitis - May use dose reduced tylenol to 2g daily Plan Chronic daily headache Patient takes Ajovy monthly T continue nortriptyline 50 mg nightly Typically headaches on the top of the head/left eye. Follows with neurology. Has failed Emgality, nortriptyline, beta-waylon, riboflavin, magnesium treatment. Topamax limited by kidney disease. DVT prophylaxis: SCDs, heparin given history of renal dysfunction. Hold heparin SQ dose prior to surgery Diet: N.p.o. with essential meds Disposition: PCU for airway monitoring/IV antihypertensives CODE STATUS: Full code History of Present Illness Primary Care Provider: Josh Squires, ALICIA, PATRIC Sam Larson is a 62-year-old male with a past medical history of GERD, BPH with LUTS, gastric ulcer, insulin-dependent diabetes, solitary kidney, CAD with diastolic CHF, CKD, neurogenic bladder, peripheral neuropathy, hyperlipidemia, complex sleep apnea, COPD, hypothyroidism who underwent a root canal 08/29/2022 and 2 was seen in the ER following this for fever with purulent drainage at which time he was given an empiric dose of cefepime as an disc charged to continue penicillin with outpatient follow-up. He represents 09/01 and is found to have development of abscess with gas as noted below. 08/30/2022 patient was noted to have GPC's in clusters speciated for staph epi, patient was notified at the time who his indicated patient was clinically improving and ultimately question that cultures were likely contamination. Root Canal Dr. Jacinto on Sunday, one tooth lower left molar. Had a fall last night from dizziness, was not presyncopal. Hit head 3x, first time went down frontwards and had a hold of the doorknob and was pulling himself up and hit the vanity when he then swung around and hit his head on the front, let go of the knob, and fell backwards away from the sink hitting the back of his head. Did not pass out or lose conciousness. NO pain at bedside assessment. Chronic daily headaches, last this morning which was on the upper third of his head instead of the whole head which is unusual for him. Different headache is what prompted him to come in. Has been globally weak in the last week, hypertensive in low 200s while in pain with jaw. Tachycardic at home to ~100. Having difficulty swallowing due to pain. NO change in breathing. Does have COPD at baseline. Cannot use bipap due to swelling in his L cheek. Cold, not sure if he has been having chills/sweats. 99-100*F temperature all week. Jaw does hurt /10, improving slighlty with ice and tylenol. Now down to 4/10. Gradually worsening over the week. Has followed with GI, having liver uiltrasound and bili followup. OK for dose reduced tylenol per pt/. Medical History: Reviewed Medications: Reviewed Surgical History: Reviewed Allergies: Reviewed Social History: Former smoker, quit 06/30/2009. EtoH rare socially during season Code Status: Surrogate DM would be . Full Code. Allergies Allergy/AdvReac Type Severity Reaction Status Date / Time lisinopril Allergy Severe " TONGUE Verified 09/01/22 15:07 SWELLS"--ANGIOEDEMA lorazepam AdvReac Intermediate Hallucinati Verified 09/01/22 15:07 ons Home Medications Medication Instructions Recorded Confirmed Type acetaminophen 325 mg capsule 325 mg PO Q6H PRN Pain 08/06/18 09/01/22 History (Tylenol) lactobacillus combination no.4 3 3,000 mmu cells PO QAM 08/06/18 09/01/22 H istory billion cell capsule (Probiotic) aspirin 81 mg tablet,delayed 81 mg PO QAM 06/09/19 09/01/22 History release magnesium 200 mg tablet 400 mg PO QAM 06/09/19 09/01/22 History flaxseed oil 1 ea miscellaneous TID 07/05/19 09/01/22 History glucosamine sulfate 500 mg tablet 500 mg PO QAM 07/05/19 09/01/22 History (Glucosamine) diazepam 2 mg tablet (Valium) 2 mg PO HS PRN Anxiety #30 tabs 12/01/19 09/01/22 Rx famotidine 10 mg tablet 10 mg PO BID 05/14/20 09/01/22 History levalbuterol HCl 0.63 mg/3 mL 0.63 mg (3 mL) inhalation Q6H PRN 06/08/20 09/01/22 Rx solution for nebulization shortness of breath or wheezing #360 mL insulin aspart 0 sliding scale dose subcut .AC & 12/02/20 09/01/22 History (niacinamide)(U-100) 100 unit/mL(3 SNACKS mL) subcutaneous pen (Fiasp FlexTouch U-100 Insulin) ferrous sulfate 325 mg (65 mg 325 mg PO BID 03/25/21 09/01/22 History iron) tablet nortriptyline 25 mg capsule 50 mg PO HS #180 caps 12/13/21 09/01/22 Rx promethazine 25 mg tablet 25 mg PO Q6H PRN nausea and 01/04/22 09/01/22 Rx vomiting #28 tabs metoclopramide HCl 10 mg tablet 10 mg PO QID #120 tabs 06/21/22 11/11/22 Rx (Reglan) insulin detemir U-100 100 unit/mL 0 unit subcut BID 05/03/22 09/01/22 History (3 mL) subcutaneous pen (Levemir FlexTouch U-100 Insulin) amlodipine 2.5 mg tablet 2.5 mg PO QAM #90 tabs 05/29/22 09/01/22 Rx pantoprazole 40 mg tablet,delayed 40 mg PO BID #180 tabs 05/29/22 09/01/22 Rx release (Protonix) atenolol 50 mg tablet (Tenormin) 50 mg PO BID #180 tabs 06/12/22 09/01/22 Rx atorvastatin 80 mg tablet 80 mg PO QPM #90 tabs 06/12/22 09/01/22 Rx levothyroxine 175 mcg tablet 175 mcg PO QAM #90 tabs 06/12/22 09/01/22 Rx albuterol sulfate 90 mcg/actuation 2 puff inhalation QID PRN 06/27/22 09/01/22 Rx aerosol inhaler Shortness Of Breath Or Wheezing #8.5 grams folic acid 1 mg tablet 1 mg PO BID #180 tabs 06/27/22 09/01/22 Rx BiPap Machine #1 ea 07/14/22 08/29/22 Rx hydrocodone-homatropine 5 mg-1.5 1 tab PO BID PRN cough #60 tabs 07/20/22 09/01/22 Rx mg tablet losartan 100 mg tablet 100 mg PO QAM #90 tabs 08/08/22 09/01/22 Rx tamsulosin 0.4 mg capsule (Flomax) 0.4 mg PO QPM #90 caps 08/18/22 09/01/22 Rx oxycodone-acetaminophen 5 mg-325 1 - 2 tab PO DAILY PRN Pain #60 08/23/22 09/01/22 Rx mg tablet (Percocet) tabs [place] 125 mg PO BID 08/28/22 09/01/22 History fexofenadine 180 mg tablet 180 mg PO QAM 08/28/22 09/01/22 History ([facility]) fluticasone fur. 100 mcg-umeclid 1 inh inhalation QAM 08/28/22 09/01/22 History 62.5 mcg-vilant 25 mcg inhalat.powder (Trelegy Ellipta) fremanezumab-vfrm 225 mg/1.5 mL 0 mg subcut DIRECTED 08/28/22 09/01/22 History subcutaneous syringe (Ajovy Syringe) isosorbide mononitrate 30 mg 30 mg PO QAM 08/28/22 09/01/22 History tablet,extended release 24 hr riboflavin (vitamin B2) 25 mg 25 mg PO ACHS 08/28/22 09/01/22 History tablet sodium chloride 1 gram tablet 1,000 mg PO BID 08/28/22 09/01/22 History bumetanide 1 mg tablet 2 mg PO DAILY #360 tabs 08/29/22 09/01/22 Rx sucralfate 1 gram tablet (Carafate) 1 g PO BID #60 tabs 08/29/22 09/01/22 Rx penicillin V potassium 500 mg 500 mg PO Q6H 09/01/22 09/01/22 History tablet Past Med/Surg History Medical History (Updated 09/01/22 @ 11:49 by Se Abdalla MD) Abnormal CT scan of lung Acute kidney injury Angioedema Asthma uses PRN inh daily 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 BPH (benign prostatic hyperplasia) CAD (coronary artery disease), [place] coronary artery Chronic diastolic CHF (congestive heart failure) pt unable to verify Chronic headache Chronic hyponatremia COPD (chronic obstructive pulmonary disease) DM type 1 (diabetes mellitus, type 1) Family history of colon cancer GERD (gastroesophageal reflux disease) History of angiography History of stroke History of subarachnoid hemorrhage 2013; memory/cognitive deficits (reports total of 3 strokes but only known event was in 2013 -- remaining strokes were incidental findings) Hyperkalemia Hyperlipidemia Hypertension Hypothyroidism Ischemic colitis Over 10 years ago (before 2007) Microcytic anemia Migraine LUZMA (obstructive sleep apnea) bipap PAD (peripheral artery disease) Premature ventricular beats Sepsis hx of Urinary retention Surgical History Difficult airway for intubation reports he was told he was a difficult intubation after rectal [place] [facility] [place]. says he has been intubated since then without issues; denies problems prior to that procedure, as well. H/O colonoscopy last 2019 History of appendectomy History of esophagogastroduodenoscopy (EGD) History of eye surgery multiple History of hand surgery Hand Incision Tendon Sheath of a Finger History of rectal abscess I&D History of tonsillectomy and adenoidectomy History of transurethral resection of prostate History of vasectomy History of ventral hernia repair Family History Mother Hypertension Grandfather (Paternal) Colon cancer Prostate cancer Brother Brain cancer Diabetes Bone cancer Kidney disease Lung cancer Son Diabetes Lung cancer Father Hemorrhagic stroke Hypertension Other Breast cancer No family history of adverse response to anesthesia Testicular cancer Denies family history of Ovarian cancer Myocardial infarction Social History Smoking Status: Former smoker Tobacco Type: Cigarettes Age Started Using Tobacco: 16; Age Quit Using Tobacco: 49; packs per day: 1.5; Second Hand Exposure: No; Hx Alcohol Use: Yes (very rarely) Alcohol type: hard liquor Hx Substance Use: No Preferred Language: Setswana Communication Ability: Effective Visual Impairment: Blindness Hearing Ability: Hard of Hearing Shoeshiner Required: No Beliefs That Will Affect Care: None marital status: Current Living Situation: Spouse and Family Current Living Situation Comment: Pt. lives w/ , daughter, and daughter's two dogs current occupational status: disabled Feels Safe at Home: Yes Childhood Exposure to Second-Hand Smoke: Yes Diet Comment: regular Dental Care, Regularly: Yes Physical Activity Frequency: Does not Exercise Seatbelt Use: always Sunscreen Use: Yes Assistive Devices: BiPap and Cane Review of Systems Review of Systems: All systems reviewed & are unremarkable except as noted in HPI & below Physical Exam Physical Exam: General: A&Ox3. NAD. Cooperative. HEENT: Atraumatic, normocephalic. Pupils clouded with no response, patient with complete acquired blindness. No visual response to confrontation. Hearing intact. Left angle of the mandible and inferior mandible with tender swelling. Internal exam without production of obvious purulence, but soft tissue swelling at the posterior left inner jaw is appreciated. Mucous membranes tacky. Uvula midline with exam assisted by tongue depressor, Mallampati 4. No wheezing/stridor. Patient resting comfortably with ice pack against left cheek. Pulm: CTAB A&P. -wheezes, -rales, -rhonchi. Symmetrical chest rise. No increase in work of breathing. No respiratory distress. Cardiac: RRR, -mrg. Radial pulses intact and symmetrical. Abdominal: Nontender, nondistended, soft. BS present. Extremities: Warm, dry. Results & Data Results & Data ([facility]) Vital Signs (Past 12 Hours) Vital Signs Temp Pulse Resp BP Pulse Ox O2 Del Method 09/01/22 08:39 Room Air 09/01/22 08:30 37.0 C 78 16 185/81 H 95 Room Air PG Care Time/CCT Total # of Minutes Spent Total Time Spent with Patient: Total time spent is greater than 50% in coordination of care (as documented) at patient's floor/unit and/or counseling patient: Coding Level of Care Code 34829 Initial Inpt Care Lvl 3 Diagnoses Submandibular space infection K12.2 CKD (chronic kidney disease) stage 2, GFR 60-89 ml/min N18.2 Hypertension I10 Diabetes mellitus type 1, uncontrolled E10.65 Glycemic state: with hyperglycemia Acquired blindness H54.7 History of stroke Z86.73 Hypothyroidism E03.9 Hypothyroidism type: acquired Hyperlipidemia E78.2 Hyperlipidemia type: mixed hyperlipidemia Chronic diastolic CHF (congestive heart failure) I50.32 Sleep apnea G47.30 COPD (chronic obstructive pulmonary disease) J44.9 COPD type: unspecified COPD GERD (gastroesophageal reflux disease) K21.9 Esophagitis presence: esophagitis presence not specified Elevated bilirubin R17 (1) Hyperlipidemia Hyperlipidemia type: mixed hyperlipidemia Qualified Code(s): E78.2 - Mixed hyperlipidemia (2) Hypothyroidism Hypothyroidism type: acquired Qualified Code(s): E03.9 - Hypothyroidism, unspecified (3) Diabetes mellitus type 1, uncontrolled Glycemic state: with hyperglycemia Qualified Code(s): E10.65 - Type 1 diabetes mellitus with hyperglycemia (4) COPD (chronic obstructive pulmonary disease) COPD type: unspecified COPD Qualified Code(s): J44.9 - Chronic obstructive pulmonary disease, unspecified (5) GERD (gastroesophageal reflux disease) Esophagitis presence: esophagitis presence not specified Qualified Code(s): K21.9 - Gastro-esophageal reflux disease without esophagitis
--- NOTE | 2022-09-01 10:40 | Emergency Department Note ---
History of Present Illness General Chief complaint: Illness Stated complaint: head injury Time Seen by Provider: 09/01/22 08:28 History of Present Illness Maximum Pain Intensity: 4 62-year-old male presents to the ED with a chief complaint of a fall overnight. Increased weakness and decreased p.o. intake. The patient did hit his head. He had a root canal on Sunday and was placed on penicillin. He has had some swelling in the left side of his face. This is not improved since Sunday when he was seen here after the root canal. The patient seemed a little disoriented this morning according to the . He also complained of a headache this morning. He does have a subarachnoid hemorrhage history 8 years ago. His headache today was different than his previous chronic headaches. He does take insulin for his type 1 diabetes. He has had some fevers since his root canal. Home Medications Medication Instructions Recorded Confirmed Type acetaminophen 325 mg capsule 325 mg PO Q6H PRN Pain 08/06/18 08/29/22 History (Tylenol) lactobacillus combination no.4 3 3,000 mmu cells PO QAM 08/06/18 08/29/22 History billion cell capsule (Probiotic) aspirin 81 mg tablet,delayed 81 mg PO QAM 06/09/19 08/29/22 History release magnesium 200 mg tablet 400 mg PO QAM 06/09/19 08/29/22 History flaxseed oil 1 ea miscellaneous TID 07/05/19 08/29/22 History glucosamine sulfate 500 mg tablet 500 mg PO QAM 07/05/19 08/29/22 History (Glucosamine) diazepam 2 mg tablet (Valium) 2 mg PO HS PRN Anxiety #30 tabs 12/01/19 08/29/22 Rx famotidine 10 mg tablet 10 mg PO BID 05/14/20 08/29/22 History levalbuterol HCl 0.63 mg/3 mL 0.63 mg (3 mL) inhalation Q6H PRN 06/08/20 08/29/22 Rx solution for nebulization shortness of breath or wheezing #360 mL insulin aspart 0 sliding scale dose subcut .AC & 12/02/20 08/29/22 History (niacinamide)(U-100) 100 unit/mL(3 SNACKS mL) subcutaneous pen (Fiasp FlexTouch U-100 Insulin) ferrous sulfate 325 mg (65 mg 325 mg PO BID 03/25/21 08/29/22 History iron) tablet nortriptyline 25 mg capsule 50 mg PO HS #180 caps 12/13/21 08/29/22 Rx promethazine 25 mg tablet 25 mg PO Q6H PRN nausea and 01/04/22 08/29/22 Rx vomiting #28 tabs metoclopramide HCl 10 mg tablet 10 mg PO QID #120 tabs 04/11/22 08/29/22 Rx (Reglan) insulin detemir U-100 100 unit/mL 0 unit subcut BID 05/03/22 08/29/22 History (3 mL) subcutaneous pen (Levemir FlexTouch U-100 Insulin) amlodipine 2.5 mg tablet 2.5 mg PO QAM #90 tabs 05/29/22 08/29/22 Rx pantoprazole 40 mg tablet,delayed 40 mg PO BID #180 tabs 05/29/22 08/29/22 Rx release (Protonix) atenolol 50 mg tablet (Tenormin) 50 mg PO BID #180 tabs 06/12/22 08/29/22 Rx atorvastatin 80 mg tablet 80 mg PO QPM #90 tabs 06/12/22 08/29/22 Rx levothyroxine 175 mcg tablet 175 mcg PO QAM #90 tabs 06/12/22 08/29/22 Rx albuterol sulfate 90 mcg/actuation 2 puff inhalation QID PRN 06/27/22 08/29/22 Rx aerosol inhaler Shortness Of Breath Or Wheezing #8.5 grams folic acid 1 mg tablet 1 mg PO BID #180 tabs 06/27/22 08/29/22 Rx BiPap Machine #1 ea 07/14/22 08/29/22 Rx hydrocodone-homatropine 5 mg-1.5 1 tab PO BID PRN cough #60 tabs 07/20/22 1 10/29/21 Rx mg tablet losartan 100 mg tablet 100 mg PO QAM #90 tabs 08/08/22 08/29/22 Rx tamsulosin 0.4 mg capsule (Flomax) 0.4 mg PO QPM #90 caps 08/18/22 08/29/22 Rx oxycodone-acetaminophen 5 mg-325 1 - 2 tab PO DAILY PRN Pain #60 08/23/22 08/29/22 Rx mg tablet (Percocet) tabs Senecot 125 mg PO BID 08/28/22 08/29/22 History fexofenadine 180 mg tablet 180 mg PO QAM 08/28/22 08/29/22 History (Manuela Allergy) fluticasone fur. 100 mcg-umeclid 1 inh inhalation QAM 08/28/22 08/29/22 History 62.5 mcg-vilant 25 mcg inhalat.powder (Trelegy Ellipta) fremanezumab-vfrm 225 mg/1.5 mL 0 mg subcut DIRECTED 08/28/22 08/29/22 History subcutaneous syringe (Ajovy Syringe) isosorbide mononitrate 30 mg 30 mg PO QAM 08/28/22 08/29/22 History tablet,extended release 24 hr riboflavin (vitamin B2) 25 mg 25 mg PO ACHS 08/28/22 08/29/22 History tablet sodium chloride 1 gram tablet 1,000 mg PO BID 08/28/22 08/29/22 History bumetanide 1 mg tablet 2 mg PO DAILY #360 tabs 08/29/22 Rx sucralfate 1 gram tablet (Carafate) 1 g PO BID #60 tabs 08/29/22 08/29/22 Rx Allergies Allergy/AdvReac Type Severity Reaction Status Date / Time lisinopril Allergy Severe " TONGUE Verified 08/28/22 20:14 SWELLS"--ANGIOEDEMA lorazepam AdvReac Intermediate Hallucinati Verified 08/28/22 20:14 ons Past Med/Surg History Medical History Abnormal CT scan of lung Acute kidney injury Angioedema Asthma uses PRN inh daily 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 BPH (benign prostatic hyperplasia) CAD (coronary artery disease), [place] coronary artery Chronic diastolic CHF (congestive heart failure) pt unable to verify Chronic headache Chronic hyponatremia COPD (chronic obstructive pulmonary disease) DM type 1 (diabetes mellitus, type 1) Family history of colon cancer GERD (gastroesophageal reflux disease) History of angiography History of stroke History of subarachnoid hemorrhage 2013; memory/cognitive deficits (reports total of 3 strokes but only known event was in 2014 -- remaining strokes were incidental findings) Hyperkalemia Hyperlipidemia Hypertension Hypothyroidism Ischemic colitis Over 10 years ago (before 2007) Microcytic anemia Migraine LUZMA (obstructive sleep apnea) bipap PAD (peripheral artery disease) Premature ventricular beats Sepsis hx of Urinary retention Surgical History Difficult airway for intubation reports he was told he was a difficult intubation after rectal abscess surgery at [facility] [place]. says he has been intubated since then without issues; denies problems prior to that procedure, as well. H/O colonoscopy last 2019 History of appendectomy History of esophagogastroduodenoscopy (EGD) History of eye surgery multiple History of hand surgery Hand Incision Tendon Sheath of a Finger History of rectal abscess I&D History of tonsillectomy and adenoidectomy History of transurethral resection of prostate History of vasectomy History of ventral hernia repair Family History Mother Hypertension Grandfather (Paternal) Colon cancer Prostate cancer Brother Brain cancer Diabetes Bone cancer Kidney disease Lung cancer Son Diabetes Lung cancer Father Hemorrhagic stroke Hypertension Other Breast cancer No family history of adverse response to anesthesia Testicular cancer Denies family history of Ovarian cancer Myocardial infarction Social History Smoking Status: Former smoker Tobacco Type: Cigarettes Age Started Using Tobacco: 16; Age Quit Using Tobacco: 49; packs per day: 1.5; Second Hand Exposure: No; Hx Alcohol Use: Yes (very rarely) Alcohol type: hard liquor Hx Substance Use: No Preferred Language: Guatemalan Communication Ability: Effective Visual Impairment: Blindness Hearing Ability: Hard of Hearing [employer] Required: No Beliefs That Will Affect Care: None marital status: Current Living Situation: Spouse and Family Current Living Situation Comment: Pt. lives w/ , daughter, and daughter's two dogs current occupational status: disabled Feels Safe at Home: Yes Childhood Exposure to Second-Hand Smoke: Yes Diet Comment: regular Dental Care, Regularly: Yes Physical Activity Frequency: Does not Exercise Seatbelt Use: always Sunscreen Use: Yes Assistive Devices: BiPap and Cane Review of Systems A total of 10 systems reviewed and were otherwise negative Physical Exam Vital Signs Vital Signs - 24 hr 09/01/22 08:30 09/01/22 08:30 09/01/22 08:39 Temperature 37.0 C Temperature Source Oral Oral Pulse Rate 78 Respiratory Rate 16 Respiratory Effort / Characteristics Non-Labored Respiratory Depth Normal Respiratory Pattern Regular Blood Pressure 185/81 H Blood Pressure Mean 115 Blood Pressure Position Sitting Pulse Oximetry 95 Oxygen Delivery Method Room Air Room Air Sepsis Recent Fever Within 48 Hours No Sepsis New/Unexplained Change in Mental Status No Sepsis Action Taken by Nursing No Action Required 09/01/22 08:23 09/01/22 08:30 09/01/22 09:00 Temperature Temperature Source Pulse Rate 80 77 74 Respiratory Rate 18 14 14 Respiratory Effort / Characteristics Respiratory Depth Respiratory Pattern Blood Pressure Blood Pressure Mean Blood Pressure Position Pulse Oximetry Oxygen Delivery Method Sepsis Recent Fever Within 48 Hours Sepsis New/Unexplained Change in Mental Status Sepsis Action Taken by Nursing 09/01/22 10:22 09/01/22 10:30 Temperature Temperature Source Pulse Rate 76 70 Respiratory Rate 17 14 Respiratory Effort / Characteristics Respiratory Depth Respiratory Pattern Blood Pressure 184/69 H Blood Pressure Mean 107 Blood Pressure Position Pulse Oximetry Oxygen Delivery Method Sepsis Recent Fever Within 48 Hours Sepsis New/Unexplained Change in Mental Status Sepsis Action Taken by Nursing CONSTITUTIONAL/VITAL SIGNS: Reviewed / noted above. GENERAL: Non-toxic in appearance. INTEGUMENTARY: Warm, dry, and [place]. HEAD: Normocephalic. EYES: without scleral icterus or trauma. ENT/OROPHARYNX: clear and moist. LYMPHADENOPATHY/NECK: Is supple without lymphadenopathy or meningismus. RESPIRATORY: Clear to auscultation bilaterally. No increased work of breathing. CARDIOVASCULAR: Regular rate and rhythm. GI/ABDOMEN: Soft and nontender. No organomegaly or pulsatile mass. EXTREMITIES: Warm and well perfused. BACK: No CVA tenderness. NEUROLOGICAL: Intact without focal deficits. PSYCHIATRIC: normal affect. MUSCULOSKELETAL: Normally developed with good muscle tone. TRIAGE NURSING DOCUMENTATION REVIEWED. Course Administered Medications Discontinued Medications Sodium Chloride (Nss 1000ml) 1,000 mls @ 999 mls/hr IV .Q1H1M SILVINA Stop: 09/01/22 09:45 Last Infusion: 09/01/22 09:54 Dose: 0 mls/hr Documented By: Admin: 09/01/22 08:53 Dose: 999 mls/hr Documented By: RICHARD Acetaminophen (Ofirmev) 1,000 mg in 100 mls @ 400 mls/hr IV NOW STA Stop: 09/01/22 08:53 Last Infusion: 09/01/22 09:11 Dose: 0 mls/hr Documented By: Admin: 09/01/22 08:56 Dose: 400 mls/hr Documented By: RICHARD Ioversol (Optiray 350 100ml) 87 ml IV ONCE ONE Stop: 09/01/22 09:43 Last Admin: 09/01/22 09:36 Dose: 87 ml Documented By: JENNIFER Ondansetron HCl (Ondansetron Inj 2 Mg/Ml 2 Ml Vial) 4 mg IV NOW STA Stop: 09/01/22 08:40 Last Admin: 09/01/22 08:56 Dose: 4 mg Documented By: RICHARD Medical Decision Making Differential Diagnosis Differential includes acute coronary syndrome, myocardial infarction, CVA, TIA, anemia, infection, pneumonia, UTI, pyelonephritis, poor nutrition, dehydration, electrolyte disturbance,hypoglycemia. Medical Records Attestation: I reviewed the patient's medical records. Home Medications Current Medication List: was personally reviewed by me Laboratory Data Attestation: I reviewed the patient's lab results. Result diagrams: 09/01/22 08:20 09/01/22 08:20 Lab Results 09/01/22 09/01/22 09/01/22 Range/Units 08:20 08:20 08:20 WBC 7.69 (4.8-10.8) K/ul RBC 3.22 L (4.63-6.08) M/uL Hgb 10.3 L (14.0-18.0) g/dl Hct 29.8 L (40.1-51.0) % MCV 92.5 (80.0-100.0) fL MCH 32.0 (25.0-34.0) pg MCHC 34.6 (32.0-36.0) g/dL RDW Std Deviation 43.9 (36.4-46.3) fL RDW Coeff of Analisa 13.0 (11.5-14.5) % Plt Count 255 (130-400) K/uL MPV 10.4 (9.4-12.4) fL Immature Gran % (Auto) 0.4 % Neut % (Auto) 76.0 % Lymph % (Auto) 14.2 % Pitkin % (Auto) 8.2 % Eos % (Auto) 0.8 % Baso % (Auto) 0.4 % Neut # (Auto) 5.85 (1.4-6.5) K/uL Lymph # (Auto) 1.09 L (1.2-3.4) K/uL Pitkin # (Auto) 0.63 (0.24-0.82) K/uL Eos # (Auto) 0.06 (0-0.50) K/uL Baso # (Auto) 0.03 (0-0.2) K/uL Immature Gran # (Auto) 0.03 H (0.00-0.02) K/uL Sodium TNP Potassium TNP Chloride 96 L (98-107) mmol/L Carbon Dioxide 24 (21-32) mmol/L Anion Gap TNP BUN 25 H (6-23) mg/dl Creatinine 1.13 (0.6-1.4) mg/dl Est Cr Clr Drug Dosing 76.5 ml/min Est GFR ( Amer) 79.7 ml/min Est GFR (Non-Af Amer) 68.8 ml/min BUN/Creatinine Ratio 22.1 H (10-20) Glucose 184 H (70-99(Fasting)) mg/dl Calcium 9.2 (8.5-10.1) mg/dl Total Bilirubin 0.7 (0.2-1.0) mg/dl AST TNP ALT 20 (7-52) U/L Alkaline Phosphatase 157 H (34-104) U/L Troponin I High Sens 17.1 (0-20) pg/ml Total Protein 8.0 (6.0-8.3) gm/dl Albumin 3.8 (3.4-5.0) gm/dl Globulin 4.2 H (2.5-4.0) gm/dl Albumin/Globulin Ratio 0.9 (0.9-2) TSH 2.290 (0.300-4.500) uIu/ml SARS-CoV-2, RNA, NAAT (NEGATIVE) 09/01/22 Range/Units 08:50 WBC (4.8-10.8) K/ul RBC (4.63-6.08) M/uL Hgb (14.0-18.0) g/dl Hct (40.1-51.0) % MCV (80.0-100.0) fL MCH (25.0-34.0) pg MCHC (32.0-36.0) g/dL RDW Std Deviation (36.4-46.3) fL RDW Coeff of Analisa (11.5-14.5) % Plt Count (130-400) K/uL MPV (9.4-12.4) fL Immature Gran % (Auto) % Neut % (Auto) % Lymph % (Auto) % Pitkin % (Auto) % Eos % (Auto) % Baso % (Auto) % Neut # (Auto) (1.4-6.5) K/uL Lymph # (Auto) (1.2-3.4) K/uL Pitkin # (Auto) (0.24-0.82) K/uL Eos # (Auto) (0-0.50) K/uL Baso # (Auto) (0-0.2) K/uL Immature Gran # (Auto) (0.00-0.02) K/uL Sodium Potassium Chloride (98-107) mmol/L Carbon Dioxide (21-32) mmol/L Anion Gap BUN (6-23) mg/dl Creatinine (0.6-1.4) mg/dl Est Cr Clr Drug Dosing ml/min Est GFR ( Amer) ml/min Est GFR (Non-Af Amer) ml/min BUN/Creatinine Ratio (10-20) Glucose (70-99(Fasting)) mg/dl Calcium (8.5-10.1) mg/dl Total Bilirubin (0.2-1.0) mg/dl AST ALT (7-52) U/L Alkaline Phosphatase (34-104) U/L Troponin I High Sens (0-20) pg/ml Total Protein (6.0-8.3) gm/dl Albumin (3.4-5.0) gm/dl Globulin (2.5-4.0) gm/dl Albumin/Globulin Ratio (0.9-2) TSH (0.300-4.500) uIu/ml SARS-CoV-2, RNA, NAAT NEGATIVE (NEGATIVE) Imaging Data Radiologist's Impression: Chest X-Ray 09/01/22 08:39 SINGLE VIEW CHEST CLINICAL HISTORY: Generalized weakness. FINDINGS: 2 AP, portable, upright chest radiographs are compared to study dated 08/28/2022 and correlated with chest CT dated 03/17/2022. The examination is degraded by portable technique and apical lordotic positioning. The heart is top normal for projection. Chronic interstitial thickening is similar to previous. There is bibasilar scarring/atelectasis. The lungs and pleural spaces are otherwise clear. No pneumothorax is seen. The skeletal structures are osteopenic. The bony thorax is grossly intact. IMPRESSION: No active disease in the chest. ACT 112: Negative or not required by law. Electronically signed by: Dar Chapin M.D. 09/01/2022 9:[address] 09/01/22 08:[address] WITH CONTRAST CLINICAL HISTORY: Evaluate for left maxillary abscess. COMPARISON STUDY: Facial bone CT August 29, 2022. TECHNIQUE: Axial images of the face were obtained following intravenous injection of 87 cc of Optiray 350 IV. Sagittal and coronal reconstructions were viewed. Automated exposure control was utilized for the study. A dose lowering technique was utilized adhering to the principles of ALARA. FINDINGS: Please note that the head CT will be reported separately. Chronic deformity of the globes is incidentally noted. Visualized portions of the brain parenchyma are unremarkable. Multiple dental amalgams are present. There are several periapical lucencies/abscesses, including periapical lucencies of the left first and second mandibular molars. Note is made of a rim-enhancing fluid collection along the inner aspect of the body of the left hemimandible which contains multiple locules of gas. This collection was not evident on prior CT. This collection measures 2.5 x 1.8 cm. There is moderate adjacent inflammation which extends into the floor the mouth with mild mass effect. No additional fluid collections are present. Epiglottis is normal. Parotid gland are unremarkable. Right submandibular gland is unremarkable. Moderate inflammation adjacent to the left submandibular gland is likely related to the odontogenic process. IMPRESSION: Interval development of a 2.5 x 1.8 cm rim-enhancing fluid and gas containing collection along the inner aspect of the body of the left hemimandible since prior CT consistent with an abscess, odontogenic in etiology. Small periapical lucencies/abscesses of the left first and second mandibular molars. Moderate adjacent inflammation with mass effect. ACT 112: Negative or not required by law. Electronically signed by: Bear Early M.D. 09/01/2022 9:[address] 09/01/22 08:39 CT SCAN OF THE BRAIN WITHOUT IV CONTRAST CLINICAL HISTORY: Fall. COMPARISON STUDY: CT of the brain dated 09/24/2017. TECHNIQUE: Unenhanced axial CT scan of the brain is performed from the vertex to the skull base. A dose lowering technique was utilized adhering to the princi ples of ALARA. FINDINGS: Brain parenchyma: There is age-related involutional change noting mild subcortical and periventricular microangiopathic disease. There is no hemorrhage, mass effect, or evidence of acute territorial ischemia by CT criteria. Desai-white matter differentiation is preserved. No extra-axial fluid collection is seen. Ventricles, sulci, cisterns: Prominent secondary to involutional change. Intracranial vasculature: There is atherosclerotic calcification of the cavernous carotid arteries. Calvarium: The skeletal structures are osteopenic. No depressed calvarial fracture is identified. Sinuses and mastoids: The visualized paranasal sinuses are clear. The mastoid air cells are well pneumatized. Orbits: The bony orbits are grossly intact. Chronic deformity calcification of the globes is unchanged. IMPRESSION: There is no hemorrhage, mass effect, or evidence of acute territorial ischemia by CT criteria. ACT 112: Negative or not required by law. Electronically signed by: Dar Chapin M.D. 09/01/2022 9:52 AM ECG Data Attestation: I personally reviewed and interpreted this ECG as follows: Additional Comments: Twelve-lead EKG: Per my interpretation shows normal sinus rhythm at a rate of 79. No ST elevation. No PVCs. Normal QTC. MDM Narrative 62-year-old male presents to the ED with a chief complaint of a fall as well as some recent fevers and swelling of the left side of his face since having a root canal on Sunday. A CT scan at that time did not show any abscess. Today he does have a developed abscess. His CBC was unremarkable. A chemistry panel was also unremarkable. EKG showed sinus rhythm CT scan of the brain did not show acute process. Chest x-ray was negative for acute disease. The patient will be seen by the medicine service for further evaluation and care. IV antibiotics will be ordered per medicine after they speak with the or maxillofacial surgeon Impression & Plan Abscess of face, Abscess, dental, Weakness, Fall Discharge Plan Visit Data Chief Complaint: Illness Stated Complaint: head injury ED Provider: Julio Underwood Discharge Problem: Abscess of face, Abscess, dental, Weakness, Fall Patient Disposition: Being Evaluated by Hospitalist Forms Stand Alone Forms: My [facility] Prescriptions Prescriptions: No Action nortriptyline 25 mg capsule 50 mg PO HS Qty: 180 3RF Rx Instructions: take 2 capsules by mouth at bedtime promethazine 25 mg tablet 25 mg PO Q6H PRN (Reason: nausea and vomiting) Qty: 28 5RF metoclopramide HCl [Reglan] 10 mg tablet 10 mg PO QID Qty: 120 5RF pantoprazole [Protonix] 40 mg tablet,delayed release (DR/EC) 40 mg PO BID Qty: 180 1RF amlodipine 2.5 mg tablet 2.5 mg PO QAM Qty: 90 3RF atenolol [Tenormin] 50 mg tablet 50 mg PO BID Qty: 180 1RF levothyroxine 175 mcg tablet 175 mcg PO QAM Qty: 90 1RF atorvastatin 80 mg tablet 80 mg PO QPM Qty: 90 1RF albuterol sulfate 90 mcg/actuation HFA aerosol inhaler 2 puff inhalation QID PRN (Reason: Shortness Of Breath Or Wheezing) Qty: 8.5 2RF Rx Instructions: inhale 2 puffs by mouth four times a day if needed for shortness of breath or wheezing folic acid 1 mg tablet 1 mg PO BID Qty: 180 3RF (DME) BiPap Machine Misc .Route Qty: 1 0RF Rx Instructions: Needs new machine per [employer]. hydrocodone-homatropine 5-1.5 mg tablet 1 tab PO BID PRN (Reason: cough) Qty: 60 0RF losartan 100 mg tablet 100 mg PO QAM Qty: 90 3RF tamsulosin [Flomax] 0.4 mg capsule 0.4 mg PO QPM Qty: 90 3RF oxycodone-acetaminophen [Percocet] 5-325 mg tablet 1 - 2 tab PO DAILY PRN (Reason: Pain) Qty: 60 0RF bumetanide 1 mg tablet 2 mg PO DAILY Qty: 360 3RF diazepam [Valium] 2 mg tablet 2 mg PO HS PRN (Reason: Anxiety) Qty: 30 1RF levalbuterol HCl 0.63 mg/3 mL solution for nebulization 0.63 mg inhalation Q6H PRN (Reason: shortness of breath or wheezing) Qty: 360 5RF sucralfate [Carafate] 1 gram tablet 1 g PO BID Qty: 60 2RF Rx Instructions: Crush and mix with 15 mL of water Fiasp FlexTouch U-100 Insulin 100 unit/mL (3 mL) insulin pen 0 sliding scale dose subcut .AC & SNACKS Rx Instructions: 1-4 CARBS IS 1 UNIT subcut daily; SLIDING SCALE; FOR EVERY 20 CARBS, ADD ANOTHER 1 UNIT OF INSULIN 2 EXTRA 2 UNITS FOR 150-170 CARBS AND IF OVER 150, ADD 2 UNITS FOR EVERY 20 POINTS OVER FOR HIS BLOOD SUGAR aspirin 81 mg tablet,delayed release (DR/EC) 81 mg PO QAM ferrous sulfate 325 mg (65 mg iron) tablet 325 mg PO BID Levemir FlexTouch U-100 Insuln 100 unit/mL (3 mL) insulin pen 0 unit subcut BID Rx Instructions: TAKES 36 UNITS QAM, THEN 42 UNITS QPM. flaxseed oil Oil 1 ea miscellaneous TID Rx Instructions: DOSE 1,200 MG TID glucosamine sulfate [Glucosamine] 500 mg Tablet 500 mg PO QAM famotidine 10 mg Tablet 10 mg PO BID Rx Instructions: TAKES AM & LUNCH acetaminophen [Tylenol] 325 mg Capsule 325 mg PO Q6H PRN (Reason: Pain) Probiotic 3 billion cell Capsule 3,000 mmu cells PO QAM magnesium 200 mg tablet 400 mg PO QAM fexofenadine [Manuela Allergy] 180 mg Tablet 180 mg PO QAM riboflavin (vitamin B2) 25 mg Tablet 25 mg PO ACHS sodium chloride 1 gram Tablet 1,000 mg PO BID Trelegy Ellipta 100-62.5-25 mcg blister with device 1 inh INHALATION QAM Senecot 125 mg PO BID isosorbide mononitrate 30 mg tablet extended release 24 hr 30 mg PO QAM Rx Instructions: take 1 tablet by mouth every morning Ajovy Syringe 225 mg/1.5 mL syringe 0 mg SUBCUT DIRECTED Referrals Referrals: Josh Squires III, CRNP [Primary Care Provider] -
[2022-09-01] MEDS ORDERED: VANCOMYCIN CONSULT ACTIVE PRN (11:34)
[2022-09-01] MEDS ORDERED: HYDROmorphone INJ 0.5 MG/0.5 ML SYR IV STA ×2 (12:09→13:20)
[2022-09-01] MEDS ORDERED: VANCOMYCIN HCL 2,000 MG in SODIUM CHLORIDE 0.9% 500 ML IV ONE (12:15)
[2022-09-01] MEDS: SODIUM CHLORIDE 0.9% 1000ML 1,000 ML IV SCH ×2 (12:19→23:09)
[2022-09-01] MEDS: NITROGLYCERIN 2% OINTMENT 30GM TUBE EXT SCH ×3 (12:43→23:08)
[2022-09-01] MEDS: AMPICILLIN/SULBACTAM SOD 3,000 MG in 0.9 % SODIUM CHLORIDE 100 ML IV SCH ×2 (13:03→19:31)
[2022-09-01] MEDS: hydrALAZINE HCL 20 MG/ML VIAL IV PRN (13:32)
[2022-09-01 14:12] LABS: Potassium 4.3 mmol/L (3.5-5.1)
--- NOTE | 2022-09-01 15:31 | Electrocardiogram Report ---
Test Reason : Blood Pressure : / mmHG Vent. Rate : 079 BPM Atrial Rate : 079 BPM P-R Int : 186 ms QRS Dur : 072 ms QT Int : 384 ms P-R-T Axes : 044 013 008 degrees QTc Int : 440 ms Poor data quality, interpretation may be adversely affected Normal sinus rhythm Normal ECG When compared with ECG of 28-AUG-2022 20:45, No significant change was found Confirmed by Carlo Hawley ([id number]) on 09/01/2022 3:31:25 PM Referred By: SELF Confirmed By:Carlo Hawley
[2022-09-01] MEDS ORDERED: amLODIPine BESYLATE 5 MG TAB PO ONE (15:45)
[2022-09-01] MEDS ORDERED: DEXTROSE 50% 50 ML SYRINGE IV PRN (16:44)
[2022-09-01] MEDS ORDERED: CARBOHYDRATES FOR HYPOGLYCEMIA PO PRN (16:44)
[2022-09-01] MEDS ORDERED: GLUCAGON FOR INJ 1 MG VIAL SQ PRN (16:44)
[2022-09-01] MEDS ORDERED: GLUCOSE 40% GEL 15 GM TUBE PO PRN (16:44)
[2022-09-01] MEDS ORDERED: HYDROmorphone INJ 0.5 MG/0.5 ML SYR IV PRN (16:44)
[2022-09-01] MEDS ORDERED: PHARMACY GLYCEMIC MGMT CONSULT PRN (16:44)
[2022-09-01] MEDS ORDERED: GLUCOSE 10 TAB/TUBE PO PRN (16:44)
[2022-09-01] MEDS ORDERED: LANTUS PER UNIT CHARGE SQ STA (17:02)
[2022-09-01] MEDS: HYDROmorphone INJ 1 MG/ML SYRINGE IV PRN ×2 (17:15→23:13)
[2022-09-01] MEDS: INSULIN ASPART PER UNIT SC SCH ×2 (17:58→21:24)
[2022-09-01] MEDS: ATENOLOL 50 MG TABLET PO SCH (18:10)
[2022-09-01] MEDS: ACETAMINOPHEN 10MG/ML Custom 650 MG in EMPTY BAG 0 ML IV SCH (18:11)
[2022-09-01] MEDS: NORTRIPTYLINE HCL 25 MG CAP PO SCH (20:02)
[2022-09-01] MEDS: TAMSULOSIN HCL 0.4 MG CAP PO SCH (20:03)
[2022-09-01] MEDS: VANCOMYCIN HCL 1,000 MG in SODIUM CHLORIDE 0.9% 250 ML IV SCH (22:53)
[2022-09-02] MEDS: INSULIN ASPART PER UNIT SC SCH ×6 (00:14→20:35)
[2022-09-02] MEDS: AMPICILLIN/SULBACTAM SOD 3,000 MG in 0.9 % SODIUM CHLORIDE 100 ML IV SCH ×5 (00:37→23:58)
[2022-09-02] MEDS: ACETAMINOPHEN 10MG/ML Custom 650 MG in EMPTY BAG 0 ML IV SCH ×3 (02:04→19:01)
[2022-09-02] MEDS: LEVOTHYROXINE SODIUM 175 MCG TABLET PO SCH (05:32)
[2022-09-02] MEDS: NITROGLYCERIN 2% OINTMENT 30GM TUBE EXT SCH ×3 (05:32→18:32)
[2022-09-02] MEDS: HYDROmorphone INJ 1 MG/ML SYRINGE IV PRN ×2 (05:55→16:28)
--- NOTE | 2022-09-02 07:20 | Hospitalist Progress Note ---
Date of Service September 02, 2022 Assessment & Plan (1) Submandibular space infection: Plan: S/p root canal 08/29/2022 CTface: Interval development of 2.5 x 1.8 cm rim-enhancing fluid and gas containing collection along the left hemimandible since prior CT 08/29/2022 consistent with odontogenic abscess, small periapical lucency/abscess of the left first and second mandibular molars noted. Moderate adjacent inflammation with mass-effect. CThead: No hemorrhage, mass-effect, or acute stroke CXR: No acute findings No leukocytosis. Hemoglobin 9.3 from prior 11. COVID-negative Blood cultures 08/28/2022 1 set of 2 (2/4) positive for [employer], suspected at the time to be contamination Repeat blood cultures pending. Given prior blood cultures positive and odontogenic infection will cover with Unasyn plus vancomycin Patient with tacky mucous membranes, history of diastolic CHF. We will hold Bumex for mild volume contraction On exam patient is with mandibular and jaw swelling, but no deep neck involvement/uvular deflection or wheezing/stridor. Will continue to monitor clinically for airway involvement. - Plan for I&D per Oral Maxillofacial Surgeon this afternoon - Will continue Unasyn, will D/C Vancomycin. Blood culture from 08/29 likely contaminant. Will continue to follow current blood cultures. (2) Chronic diastolic CHF (congestive heart failure): Plan: CAD with diastolic CHF Admitting EKG: Normal sinus rhythm, QTC 440, no ST segment changes TTE 04/14/2021: EF 60-65%. No regional wall motion abnormalities. Mild mitral regurg. Mild concentric LVH. Technically challenging study. Slightly volume contracted upon admission s/p 1L fluids, clinically appears euvolemic. Will continue to hold Bumex and reevaluate tomorrow Aspirin 81 mg daily Isosorbide mononitrate 30 mg every morning Losartan 100 mg every morning Continue atenolol 50 mg p.o. twice daily (3) CKD (chronic kidney disease) stage 2, GFR 60-89 ml/min: Plan: CKD 2/2 DM1 Creatinine baseline appears approximately 1.11.3 Admitting creatinine 1.13. Slightly elevated ratio. -Renal dysfunction is from type I DM (4) Hypertension: Plan: Hypertension Losartan as otherwise noted Continue amlodipine 2.5 mg daily Atenolol as otherwise noted (5) Diabetes mellitus type 1, uncontrolled: Plan: Type 1 diabetes mellitus Admitting BSG 184 - Home Insulin: 38u levimir AM, 46u levimir qHS, 1:4 carb ratio + SSI 2:20 over 150 Basal bolus with SSI on admission, pharmacy consulted given high requirements with infection and potential need for steroids Glucose checks AC/at bedtime, dose reduce Lantus while n.p.o. (6) Acquired blindness: Plan: Acquired Blindness - 2/2 diabetic retinopathy - 9200x laser surgery tx in retina, 44 cryotherapy in retinas for diabetic retinopathy @ age 25. - Currently blind in both eyes, can not even see light/shadows (7) History of stroke: Plan: Past CVA - 2013 CVA with subarachnoid hemorrhage. 2 older strokes noted on MRI - Went ot [facility] for neurosurgery. Did not have surgery, was followed with supportive care - No residual focal deficits, but does have some cognitive impairment and memory problems. (8) Hypothyroidism: Plan: Hypothyroidism Admitting TSH normal Continue Synthroid 175 mcg daily (9) Hyperlipidemia: Plan: Hyperlipidemia Continue to statin 80 mg daily, no transaminitis on admit (10) Sleep apnea: Plan: LUZMA CPAP nightly as tolerated with facial swelling (11) COPD (chronic obstructive pulmonary disease): Plan: COPD PFT 12/2020: FVC 85% predicted, FEV1 57% predicted, FEV1/FVC actual 53% predicted 67, moderate airflow obstruction without bronchodilator response stable from prior study. Albuterol as needed Continue Trelegy/formulary equivalent (12) GERD (gastroesophageal reflux disease): Plan: GERD Protonix daily Sucralfate 1 g p.o. twice daily (13) Elevated bilirubin: Plan: Prior Elevated bilirubin Following with GI as outpatient. - Bili normalized, no transaminitis - May use dose reduced tylenol to 2g daily Plan Chronic daily headache Patient takes Ajovy monthly T continue nortriptyline 50 mg nightly Typically headaches on the top of the head/left eye. Follows with neurology. Has failed Emgality, nortriptyline, beta-waylon, riboflavin, magnesium treatment. Topamax limited by kidney disease. - Headache improved from yesterday; likely secondary to odontogenics infection but will continue to monitor blood pressures DVT prophylaxis: SCDs, heparin given history of renal dysfunction. Hold heparin SQ dose prior to surgery Diet: N.p.o. with essential meds Disposition: U for airway monitoring/IV antihypertensives CODE STATUS: Full code Admission and Anticipated Discharge Date Admission Date: September 01, 2022 Supervising Physician Co-Signing Physician Notes I personally examined the patient and verified all rajan points of history and exam, discussed case, and agree with decision making with Dr Norm hernandez, post op. maxilofacial assistance greatly appreciated vitals noted nad heent nc at mmm dressing on side of jaw dental infection/abscess - now post drainage. unasyn, pain control, time. DVT proph - heparin SQ otherwise as above Subjective 62 year old male with a past medical history of GERD, BPH, gastric ulcer, insulin dependent DM, solitary kidney, CAD with HFpEF, neurogenic bladder, peripheral neuropathy, HLD, complex sleep apnea, COPD, hypothyroidism presents with odontogenic infection. S/p root canal 08/29 and was seen in the ED on the same day for fever/purulent drainage, Was started given dose of cefepime and discharged with penicillin. 09/01 states that he had a headache that was different from his chronic headaches; this prompted him to come to ED. States that he is having some left sided jaw pain/swelling this morning that is making it difficult to speech. No trouble swallowing, throat swelling, chest pain, dyspnea, fever/chills. Review of Systems Review of Systems: As per HPI Physical Exam Physical Exam: Constitutional: well-appearing, no acute distress HEENT: NCAT, no conjunctival injection, complete acquired blindness, soft tissue swelling left mandible CV: regular rhythm, no murmur appreciated, extremities well-perfused, no LE edema Resp: CTABL, no wheezes/rales/rhonchi appreciated, no increased work of breathing GI: soft, nondistended, nontender, BS normoactive MSK: no gross deformities appreciated Skin: warm, dry, no rash appreciated Neuro: alert, oriented, no focal neurologic deficit appreciated Results & Data Results & Data ([facility]) Vital Signs (Past 12 Hours) Vital Signs Temp Pulse Pulse Resp BP Pulse Ox O2 Del Method 09/02/22 03:08 37.3 C 91 H 18 176/72 H 92 Room Air 09/02/22 01:07 82 09/01/22 23:17 37.5 C 88 18 180/68 H 93 Room Air 09/01/22 19:56 36.7 C 89 16 180/69 H 93 Room Air (1) Hyperlipidemia Hyperlipidemia type: mixed hyperlipidemia Qualified Code(s): E78.2 - Mixed hyperlipidemia (2) Hypothyroidism Hypothyroidism type: acquired Qualified Code(s): E03.9 - Hypothyroidism, unspecified (3) Diabetes mellitus type 1, uncontrolled Glycemic state: with hyperglycemia Qualified Code(s): E10.65 - Type 1 diabetes mellitus with hyperglycemia (4) COPD (chronic obstructive pulmonary disease) COPD type: unspecified COPD Qualified Code(s): J44.9 - Chronic obstructive pulmonary disease, unspecified (5) GERD (gastroesophageal reflux disease) Esophagitis presence: esophagitis presence not specified Qualified Code(s): K21.9 - Gastro-esophageal reflux disease without esophagitis
[2022-09-02 07:32] LABS: Estimated Average Glucose 192 mg/dl; Hemoglobin A1C 8.3 % (4.5-5.6)
[2022-09-02 07:44] LABS: Basophils # (auto) 0.03 K/uL (0-0.2); Basophils % (auto) 0.3 %; Eosinophils # (auto) 0.05 K/uL (0-0.50); Eosinophils % (auto) 0.5 %; Hematocrit (blood only) 27.6 % (40.1-51.0); Hemoglobin 9.3 g/dl (14.0-18.0); Immature Granulocytes # (auto) 0.06 K/uL (0.00-0.02); Immature Granulocytes % (auto) 0.7 %; Lymphocytes # (auto) 1.44 K/uL (1.2-3.4); Lymphocytes % (auto) 15.7 %; Mean Corpuscular Hemoglobin 32.4 pg (25.0-34.0); Mean Corpuscular Hgb Conc 33.7 g/dL (32.0-36.0); Mean Corpuscular Volume 96.2 fL (80.0-100.0); Mean Platelet Volume 10.1 fL (9.4-12.4); Monocytes # (auto) 0.87 K/uL (0.24-0.82); Monocytes % (auto) 9.5 %; Neutrophils # (auto) 6.72 K/uL (1.4-6.5); Neutrophils % (auto) 73.3 %; Platelet Count 260 K/uL (130-400); RDW Coefficient of Variation 13.1 % (11.5-14.5); RDW Standard Deviation 45.8 fL (36.4-46.3); Red Blood Count 2.87 M/uL (4.63-6.08); White Blood Count 9.17 K/ul (4.8-10.8)
[2022-09-02 07:56] LABS: BUN Creatinine Ratio 19.1 (10-20); Calcium 8.8 mg/dl (8.5-10.1); Creatinine Clr Calc Pharmacy 95.8 ml/min; Est GFR (African American) 105.5 ml/min; Potassium 4.3 mmol/L (3.5-5.1)
[2022-09-02] MEDS: ISOSORBIDE MONO EXTENDED REL 30 MG TABCR PO SCH (08:10)
[2022-09-02] MEDS: amLODIPine BESYLATE 5 MG TAB PO SCH (08:10)
--- NOTE | 2022-09-02 08:50 | Oral/Maxillofacial Consult ---
Date of Consultation September 02, 2022 Assessment & Plan (1) History of root canal procedure: (2) Abscess of face: (3) Abscess, dental: (4) History of stroke: (5) Acquired blindness: (6) Submandibular space infection: History of Present Illness Attending Physician: Adonay Ventura DO History of Present Illness Oral Maxillofacial Surgery Exam room 239 Present Complaint: I have pain/swelling lower left jaw after a root canal (nerve) removal om Aug 28 Dr Jacinto. Symptoms have been ongoing for a while. Pain associated with # 18 since May. Developed pain, fever after the Root canal procedure was on Amox. Came to ER was evaluated and sent home. Returned yesterday with increased pain and swelling lower left submandibular are floor of the mouth--admitted Oral Exam: Finding--Swollen and tender gingival tissue , left floor of the mouth, submandibular space Imaging: FACIAL BONE CT WITH CONTRAST CLINICAL HISTORY: Evaluate for left maxillary abscess. COMPARISON STUDY: Facial bone CT August 29, 2022. FINDINGS: Please note that the head CT will be reported separately. Chronic deformity of the globes is incidentally noted. Visualized portions of the brain parenchyma are unremarkable. Multiple dental amalgams are present. There are several periapical lucencies/abscesses, including periapical lucencies of the left first and second mandibular molars. Note is made of a rim-enhancing fluid collection along the inner aspect of the body of the left hemimandible which contains multiple locules of gas. This collection was not evident on prior CT. This collection measures 2.5 x 1.8 cm. There is moderate adjacent inflammation which extends into the floor the mouth with mild mass effect. No additional fluid collections are present. Epiglottis is normal. Parotid gland are unremarkable. Right submandibular gland is unremarkable. Moderate inflammation adjacent to the left submandibular gland is likely related to the odontogenic process. IMPRESSION: Interval development of a 2.5 x 1.8 cm rim-enhancing fluid and gas containing collection along the inner aspect of the body of the left hemimandible since prior CT consistent with an abscess, odontogenic in etiology. Small periapical lucencies/abscesses of the left first and second mandibular molars. Moderate adjacent inflammation with mass effect. Soft tissue: Swollen --floor of the mouth left side, submandibular area left and buccal space tongue, hard/soft palate, posterior pharyngeal area all with in normal limits, Oral Care: Overall oral care is good Occlusion: Class I TMJ exam: No pop, clicking, pain, good ROM, No history of TMJ injury or dysfunction Periodontal exam: Healthy gingival tissue without evidence of periodontal pathology. Head/Neck exam: Left Neck is swollen, FROM, Able to extend and flex neck w/o difficulty, no masses other then the submandibular infection There is a h/o of complex sleep apnea. Treatment Plan: Consent signed NPO Set up with general anesthesia in hospital for I&D extra/intraoral due to complexity of the procedure I reviewed the treatment plan and consent with the patient and his . Understanding was expressed. Time was given for questions regarding the surgery, risks and post op care. Discussed alternative to treatment--procedure as planned, Do not do surgery Risks discussed: Bleeding,Pain,swelling,infection, delayed healing, nerve injury to face,lips,tongue,chin area which could be permanent (rare). will need completion of the root canal TMJ, jaw stiffness, change in bite (rare), ear pain (referred). Sinus problems like fistula or infection. Need to leave a small root fragment in place to avoid injury to nerve or sinus. Relationship of wisdom teeth to nerve/sinus and risk of jaw fracture. Home care reviewed: tooth brushing, rinsing, follow up care with Dr Rojas and Dr Jacinto for root canals diet=crixb-dbwn-gynx dental. Emergency Surgery to be set up today ZULY in the OR Allergies Allergy/AdvReac Type Severity Reaction Status Date / Time lisinopril Allergy Severe " TONGUE Verified 09/01/22 15:07 SWELLS"--ANGIOEDEMA lorazepam AdvReac Intermediate Hallucinati Verified 09/01/22 15:07 ons Home Medications Medication Instructions Recorded Confirmed Type acetaminophen 325 mg capsule 325 mg PO Q6H PRN Pain 08/06/18 09/01/22 History (Tylenol) lactobacillus combination no.4 3 3,000 mmu cells PO QAM 08/06/18 09/01/22 History billion cell capsule (Probiotic) aspirin 81 mg tablet,delayed 81 mg PO QAM 06/09/19 09/01/22 History release magnesium 200 mg tablet 400 mg PO QAM 06/09/19 09/01/22 History flaxseed oil 1 ea miscellaneous TID 07/05/19 09/01/22 History glucosamine sulfate 500 mg tablet 500 mg PO QAM 07/05/19 09/01/22 History (Glucosamine) diazepam 2 mg tablet (Valium) 2 mg PO HS PRN Anxiety #30 tabs 12/01/19 09/01/22 Rx famotidine 10 mg tablet 10 mg PO BID 05/14/20 09/01/22 History levalbuterol HCl 0.63 mg/3 mL 0.63 mg (3 mL) inhalation Q6H PRN 06/08/20 09/01/22 Rx solution for nebulization shortness of breath or wheezing #360 mL insulin aspart 0 sliding scale dose subcut .AC & 12/02/20 09/01/22 History (niacinamide)(U-100) 100 unit/mL(3 SNACKS mL) subcutaneous pen (Fiasp FlexTouch U-100 Insulin) ferrous sulfate 325 mg (65 mg 325 mg PO BID 03/25/21 09/01/22 History iron) tablet nortriptyline 25 mg capsule 50 mg PO HS #180 caps 12/13/21 09/01/22 Rx promethazine 25 mg tablet 25 mg PO Q6H PRN nausea and 01/04/22 09/01/22 Rx vomiting #28 tabs metoclopramide HCl 10 mg tablet 10 mg PO QID #120 tabs 04/11/22 09/01/22 Rx (Reglan) insulin detemir U-100 100 unit/mL 0 unit subcut BID 05/03/22 09/01/22 History (3 mL) subcutaneous pen (Levemir FlexTouch U-100 Insulin) amlodipine 2.5 mg tablet 2.5 mg PO QAM #90 tabs 05/29/22 09/01/22 Rx pantoprazole 40 mg tablet,delayed 40 mg PO BID #180 tabs 05/29/22 09/01/22 Rx release (Protonix) atenolol 50 mg tablet (Tenormin) 50 mg PO BID #180 tabs 06/12/22 09/01/22 Rx atorvastatin 80 mg tablet 80 mg PO QPM #90 tabs 06/12/22 09/01/22 Rx levothyroxine 175 mcg tablet 175 mcg PO QAM #90 tabs 06/12/22 09/01/22 Rx albuterol sulfate 90 mcg/actuation 2 puff inhalation QID PRN 06/27/22 09/01/22 Rx aerosol inhaler Shortness Of Breath Or Wheezing #8.5 grams folic acid 1 mg tablet 1 mg PO BID #180 tabs 06/27/22 09/01/22 Rx BiPap Machine #1 ea 07/14/22 08/29/22 Rx hydrocodone-homatropine 5 mg-1.5 1 tab PO BID PRN cough #60 tabs 07/20/2209/12 Rx mg tablet losartan 100 mg tablet 100 mg PO QAM #90 tabs 08/08/22 09/01/22 Rx tamsulosin 0.4 mg capsule (Flomax) 0.4 mg PO QPM #90 caps 08/18/22 09/01/22 Rx oxycodone-acetaminophen 5 mg-325 1 - 2 tab PO DAILY PRN Pain #60 08/23/22 09/01/22 Rx mg tablet (Percocet) tabs Senecot 125 mg PO BID 08/28/22 09/01/22 History fexofenadine 180 mg tablet 180 mg PO QAM 08/28/22 09/01/22 History ([facility]) fluticasone fur. 100 mcg-umeclid 1 inh inhalation QAM 08/28/22 09/01/22 History 62.5 mcg-vilant 25 mcg inhalat.powder (Trelegy Ellipta) fremanezumab-vfrm 225 mg/1.5 mL 0 mg subcut DIRECTED 08/28/22 09/01/22 History subcutaneous syringe (Ajovy Syringe) isosorbide mononitrate 30 mg 30 mg PO QAM 08/28/22 09/01/22 History tablet,extended release 24 hr riboflavin (vitamin B2) 25 mg 25 mg PO ACHS 08/28/22 09/01/22 History tablet sodium chloride 1 gram tablet 1,000 mg PO BID 08/28/22 09/01/22 History bumetanide 1 mg tablet 2 mg PO DAILY #360 tabs 08/29/22 09/01/22 Rx sucralfate 1 gram tablet (Carafate) 1 g PO BID #60 tabs 08/29/22 09/01/22 Rx penicillin V potassium 500 mg 500 mg PO Q6H 09/01/22 09/01/22 History tablet Patient History Medical History (Updated 09/02/22 @ 08:50 by Jimmy Rojas DMD) Abnormal CT scan of lung Acute kidney injury Angioedema Asthma uses PRN inh daily 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 BPH (benign prostatic hyperplasia) CAD (coronary artery disease), rincon coronary artery Chronic diastolic CHF (congestive heart failure) pt unable to verify Chronic headache Chronic hyponatremia COPD (chronic obstructive pulmonary disease) DM type 1 (diabetes mellitus, type 1) Family history of colon cancer GERD (gastroesophageal reflux disease) History of angiography History of stroke History of subarachnoid hemorrhage 2013; memory/cognitive deficits (reports total of 3 strokes but only known event was in 2014 -- remaining strokes were incidental findings) Hyperkalemia Hyperlipidemia Hypertension Hypothyroidism Ischemic colitis Over 10 years ago (before 2007) Microcytic anemia Migraine LUZMA (obstructive sleep apnea) bipap PAD (peripheral artery disease) Premature ventricular beats Sepsis hx of Urinary retention Surgical History Difficult airway for intubation reports he was told he was a difficult intubation after rectal abscess surgery at [facility]. says he has been intubated since then without issues; denies problems prior to that procedure, as well. H/O colonoscopy last 2019 History of appendectomy History of esophagogastroduodenoscopy (EGD) History of eye surgery multiple History of hand surgery Hand Incision Tendon Sheath of a Finger History of rectal abscess I&D History of tonsillectomy and adenoidectomy History of transurethral resection of prostate History of vasectomy History of ventral hernia repair Family History Mother Hypertension Grandfather (Paternal) Colon cancer Prostate cancer Brother Brain cancer Diabetes Bone cancer Kidney disease Lung cancer Son Diabetes Lung cancer Father Hemorrhagic stroke Hypertension Other Breast cancer No family history of adverse response to anesthesia Testicular cancer Denies family history of Ovarian cancer Myocardial infarction Social History Smoking Status: Former smoker Tobacco Type: Cigarettes Age Started Using Tobacco: 16; Age Quit Using Tobacco: 49; packs per day: 1.5; Second Hand Exposure: No; Hx Alcohol Use: Yes (very rarely) Alcohol type: hard liquor Hx Substance Use: No Preferred Language: Swedish Communication Ability: Effective Visual Impairment: Blindness Hearing Ability: Hard of Hearing Manager Photography Required: No Beliefs That Will Affect Care: None marital status: Current Living Situation: Spouse and Family current occupational status: disabled Other Information That Helps Us Care for You: No Feels Safe at Home: Yes Safety Concerns: Feels Safe At This Time Childhood Exposure to Second-Hand Smoke: Yes Diet Comment: regular Dental Care, Regularly: Yes Physical Activity Frequency: Does not Exercise Seatbelt Use: always Sunscreen Use: Yes Assistive Devices: BiPap and Cane Results & Data ([facility]) Vital Signs (Past 12 Hours) Vital Signs Temp Pulse Pulse Resp BP Pulse Ox O2 Del Method 09/02/22 07:32 36.7 C 89 20 201/69 H 93 Room Air 09/02/22 03:08 37.3 C 91 H 18 176/72 H 92 Room Air 09/02/22 01:07 82 09/01/22 23:17 37.5 C 88 18 180/68 H 93 Room Air PG Care Time/CCT Total # of Minutes Spent Total Time Spent with Patient: Total time spent is greater than 50% in coordination of care (as documented) at patient's floor/unit and/or counseling patient: Coding Level of Care Code 14141 Initial Inpt Care Lvl 3 Diagnoses History of root canal procedure Z98.890 Abscess of face L02.01 Abscess, dental K04.7 History of stroke Z86.73 Acquired blindness H54.7 Submandibular space infection K12.2
[2022-09-02] MEDS ORDERED: LANTUS PER UNIT CHARGE SQ SCH (09:00)
[2022-09-02] MEDS: FLUTICASONE FUROATE 100MCG 14 PUFFS/INHALER INH SCH (09:44)
[2022-09-02] MEDS: UMECLIDINIUM/VILANTEROL 62.5/25MCG 7 PUFFS/INHALER INH SCH (09:44)
--- NOTE | 2022-09-02 10:01 | Anesthesiology Consultation ---
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 History Surgery Operation Date: 09/02/22 08:35 Proposed Procedures p incision and drainage left submandibular gland - Jimmy Rojas DMD Height/Weight Height: 5 ft 9 in Weight: 93.2 kg Allergies Allergy/AdvReac Type Severity Reaction Status Date / Time lisinopril Allergy Severe " TONGUE Verified 09/01/22 15:07 SWELLS"--ANGIOEDEMA lorazepam AdvReac Intermediate Hallucinati Verified 09/01/22 15:07 ons Medications Home Medications Medication Instructions Recorded Confirmed Last Taken acetaminophen 325 mg capsule 325 mg PO Q6H PRN Pain 08/06/18 09/01/22 02/06/22 (Tylenol) lactobacillus combination no.4 3 3,000 mmu cells PO QAM 08/06/18 09/01/22 08/31/22 billion cell capsule (Probiotic) aspirin 81 mg tablet,delayed 81 mg PO QAM 06/09/19 09/01/22 08/31/22 release magnesium 200 mg tablet 400 mg PO QAM 06/09/19 09/01/22 08/31/22 flaxseed oil 1 ea miscellaneous TID 07/05/19 09/01/22 08/31/22 glucosamine sulfate 500 mg tablet 500 mg PO QAM 07/05/19 09/01/22 08/31/22 (Glucosamine) diazepam 2 mg tablet (Valium) 2 mg PO HS PRN Anxiety #30 tabs 12/01/19 09/01/22 Unknown famotidine 10 mg tablet 10 mg PO BID 05/14/20 09/01/22 08/31/22 levalbuterol HCl 0.63 mg/3 mL 0.63 mg (3 mL) inhalation Q6H PRN 06/08/20 09/01/22 Unknown solution for nebulization shortness of breath or wheezing #360 mL insulin aspart 0 sliding scale dose subcut .AC & 12/02/20 09/01/22 08/31/22 (niacinamide)(U-100) 100 unit/mL(3 SNACKS mL) subcutaneous pen (Fiasp FlexTouch U-100 Insulin) ferrous sulfate 325 mg (65 mg 325 mg PO BID 03/25/21 09/01/22 08/31/22 iron) tablet nortriptyline 25 mg capsule 50 mg PO HS #180 caps 12/13/21 09/01/22 08/31/22 promethazine 25 mg tablet 25 mg PO Q6H PRN nausea and 01/04/22 09/01/22 Unknown vomiting #28 tabs metoclopramide HCl 10 mg tablet 10 mg PO QID #120 tabs 04/11/22 09/01/22 08/31/22 (Reglan) insulin detemir U-100 100 unit/mL 0 unit subcut BID 05/03/22 09/01/22 08/31/22 (3 mL) subcutaneous pen (Levemir FlexTouch U-100 Insulin) amlodipine 2.5 mg tablet 2.5 mg PO QAM #90 tabs 05/29/22 09/01/22 08/31/22 pantoprazole 40 mg tablet,delayed 40 mg PO BID #180 tabs 05/29/22 09/01/2208/31 release (Protonix) atenolol 50 mg tablet (Tenormin) 50 mg PO BID #180 tabs 06/12/22 09/01/22 08/31/22 atorvastatin 80 mg tablet 80 mg PO QPM #90 tabs 06/12/22 09/01/22 08/31/22 levothyroxine 175 mcg tablet 175 mcg PO QAM #90 tabs 06/12/22 09/01/22 08/31/22 albuterol sulfate 90 mcg/actuation 2 puff inhalation QID PRN 06/27/22 09/01/22 Unknown aerosol inhaler Shortness Of Breath Or Wheezing #8.5 grams folic acid 1 mg tablet 1 mg PO BID #180 tabs 06/27/22 09/01/22 08/31/22 BiPap Machine #1 ea 07/14/22 08/29/22 Unknown hydrocodone-homatropine 5 mg-1.5 1 tab PO BID PRN cough #60 tabs 07/20/22 09/01/22 08/31/22 mg tablet losartan 100 mg tablet 100 mg PO QAM #90 tabs 08/08/22 09/01/22 08/31/22 tamsulosin 0.4 mg capsule (Flomax) 0.4 mg PO QPM #90 caps 08/18/22 09/01/22 08/31/22 oxycodone-acetaminophen 5 mg-325 1 - 2 tab PO DAILY PRN Pain #60 08/23/22 Unknown mg tablet (Percocet) tabs Senecot 125 mg PO BID 08/28/22 09/01/22 08/31/22 fexofenadine 180 mg tablet 180 mg PO QAM 08/28/22 09/01/22 08/31/22 ([facility] Allergy) fluticasone fur. 100 mcg-umeclid 1 inh inhalation QAM 08/28/22 09/01/22 08/31/22 62.5 mcg-vilant 25 mcg inhalat.powder (Trelegy Ellipta) fremanezumab-vfrm 225 mg/1.5 mL 0 mg subcut DIRECTED 08/28/22 09/01/22 Unknown subcutaneous syringe (Ajovy Syringe) isosorbide mononitrate 30 mg 30 mg PO QAM 08/28/22 09/01/22 08/31/22 tablet,extended release 24 hr riboflavin (vitamin B2) 25 mg 25 mg PO ACHS 08/28/22 09/01/22 08/31/22 tablet sodium chloride 1 gram tablet 1,000 mg PO BID 08/28/22 09/01/22 08/31/22 bumetanide 1 mg tablet 2 mg PO DAILY #360 tabs 08/29/22 09/01/22 08/31/22 sucralfate 1 gram tablet (Carafate) 1 g PO BID #60 tabs 08/29/22 09/01/22 08/31/22 penicillin V potassium 500 mg 500 mg PO Q6H 09/01/22 09/01/22 09/01/22 08:00 tablet Active Medications Generic Name Dose Route Start Last Admin Trade Name Freq PRN Reason Stop Dose Admin Amlodipine Besylate 2.5 mg 09/02/22 09:00 09/02/22 08:10 Amlodipine Besylate 5 Mg Tab PO 10/02/22 08:59 2.5 mg QAM SILVINA Administration Atenolol 50 mg 09/01/22 21:00 09/01/22 18:10 Atenolol 50 Mg Tablet PO 10/01/22 20:59 50 mg BID SILVINA Administration Fluticasone Furoate 1 puffs 09/02/22 08:00 09/02/22 09:44 Fluticasone Furoate 100mcg 14 Puffs/Inhaler INH 10/02/22 07:59 1 puffs QDR SILVINA Administration Hydralazine HCl 2.5 mg 09/01/22 12:31 09/01/22 13:32 Hydralazine Hcl 20 Mg/Ml Vial IV 10/01/22 12:30 2.5 mg Q6H PRN Administration SBP >180 Hydromorphone HCl 1 mg 09/01/22 16:44 09/02/22 05:55 Hydromorphone Inj 1 Mg/Ml Syringe IV 09/15/22 16:43 1 mg Q4H PRN Administration Severe Pain (7,8,9,10) on NRS Ampicillin Sodium/Sulbactam 108 mls @ 200 mls/hr 09/01/22 12:30 09/02/22 06:0 9 Sodium 3,000 mg/ Sodium IV 09/11/22 12:29 Infused Chloride Q6H SILVINA Infusion Protocol Sodium Chloride 1,000 mls @ 80 mls/hr 09/01/22 11:45 09/01/22 23:09 Nss 1000ml IV 10/01/22 11:44 80 mls/hr .[id number] SILVINA Administration Acetaminophen 650 mg/ EMPTY 65 mls @ 260 mls/hr 09/01/22 18:00 09/02/22 09:47 BAG IV 10/01/22 17:59 260 mls/hr Q8H SILVINA Administration Vancomycin HCl 1,000 mg/ 270 mls @ 200 mls/hr 09/01/22 23:00 09/02/22 00:23 Sodium Chloride IV 09/08/22 22:59 Infused Q12H SILVINA Infusion Protocol Insulin Aspart 0 units 09/01/22 17:00 09/02/22 08:05 Insulin Aspart Per Unit SC 10/01/22 16:59 7 units ACHS SILVINA Administration Insulin Glargine 40 units 09/02/22 09:00 09/02/22 08:04 Lantus Per Unit Charge SQ 09/02/22 11:00 40 units 0900 SILVINA Administration Isosorbide Mononitrate 30 mg 09/02/22 09:00 09/02/22 08:10 Isosorbide Sanborn Extended Rel 30 Mg Tabcr PO 10/02/22 08:59 30 mg QAM SILVINA Administration Levothyroxine Sodium 175 mcg 09/02/22 06:30 09/02/22 05:32 Levothyroxine Sodium 175 Mcg Tablet PO 10/02/22 06:29 175 mcg DAILYBB SILVINA Administration Nitroglycerin 0.5 inch 09/01/22 12:00 09/02/22 05:32 Nitroglycerin 2% Ointment 30gm Tube EXT 10/01/22 11:59 0.5 inch Q6H SILVINA Administration Nortriptyline HCl 50 mg 09/01/22 21:00 09/01/22 20:02 Nortriptyline Hcl 25 Mg Cap PO 10/01/22 20:59 50 mg HS SILVINA Administration Tamsulosin HCl 0.4 mg 09/01/22 21:00 09/01/22 20:03 Tamsulosin Hcl 0.4 Mg Cap PO 10/01/22 20:59 0.4 mg QPM SILVINA Administration Umeclidinium/Vilanterol 1 puffs 09/02/22 08:00 09/02/22 09:44 Umeclidinium/Vilanterol 62.5/25mcg 7 Puffs/Inhaler INH 10/02/22 07:59 1 puffs QDR SILVINA Administration Past Medical History Medical History Abnormal CT scan of lung Acute kidney injury Angioedema Asthma uses PRN inh daily 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 BPH (benign prostatic hyperplasia) CAD (coronary artery disease), chicken [place] coronary artery Chronic diastolic CHF (congestive heart failure) pt unable to verify Chronic headache Chronic hyponatremia COPD (chronic obstructive pulmonary disease) DM type 1 (diabetes mellitus, type 1) Family history of colon cancer GERD (gastroesophageal reflux disease) History of angiography History of stroke History of subarachnoid hemorrhage 2013; memory/cognitive deficits (reports total of 3 strokes but only known event was in 2014 -- remaining strokes were incidental findings) Hyperkalemia Hyperlipidemia Hypertension Hypothyroidism Ischemic colitis Over 10 years ago (before 2007) Microcytic anemia Migraine LUZMA (obstructive sleep apnea) bipap PAD (peripheral artery disease) Premature ventricular beats Sepsis hx of Urinary retention Past Family History Family History Mother Hypertension Grandfather (Paternal) Colon cancer Prostate cancer Brother Brain cancer Diabetes Bone cancer Kidney disease Lung cancer Son Diabetes Lung cancer Father Hemorrhagic stroke Hypertension Other Breast cancer No family history of adverse response to anesthesia Testicular cancer Denies family history of Ovarian cancer Myocardial infarction Past Surgical History Surgical History Difficult airway for intubation reports he was told he was a difficult intubation [place] [facility] [place] has been intubated since then without issues; denies problems prior to that procedure, as well. H/O colonoscopy last 2019 History of appendectomy History of esophagogastroduodenoscopy (EGD) History of eye surgery multiple History of hand surgery Hand Incision Tendon Sheath of a Finger History of rectal abscess I&D History of tonsillectomy and adenoidectomy History of transurethral resection of prostate History of vasectomy History of ventral hernia repair Social History Smoking Status: Former smoker Hx Alcohol Use: Yes (very rarely) Alcohol type: hard liquor alcohol intake frequency: holidays/special occasions only Hx Substance Use: No substance use type: does not use Physical Exam Vital Signs Last Vital Signs Temp 98.1 F 09/02/22 07:32 Pulse 89 09/02/22 07:32 Resp 20 09/02/22 07:32 BP 201/69 H 09/02/22 07:32 Pulse Ox 93 09/02/22 07:32 O2 Del Method 09/02/22 07:32 Testing Laboratory Results 09/02/22 06:12 09/02/22 06:13 Hemoglobin A1c 8.3 % (4.5-5.6) H 09/02/22 06:12 09/02/22 09/02/22 09/02/22 07:13 04:00 00:01 POC Glucose 249 H 192 H 213 H Electrocardiogram Date: 09/01/22 Poor data quality, interpretation may be adversely affected Normal sinus rhythm, rate 79 bpm Normal ECG When compared with ECG of 28-AUG-2022 20:45, No significant change was found Confirmed by Carlo Hawley ([id number]) on 09/01/2022 3:31:25 PM Chest X-Ray Date: 09/01/22 Findings: + NAD Echocardiogram Date: 04/14/21 Normal LV size and systolic function. EF 60-65%. No regional wall motion abnormalities. Mild concentric LVH. Mild MR
--- NOTE | 2022-09-02 10:06 | Pharmacy Report ---
Pharmacy PK ABX Note - Date of Service September 02, 2022 - Assessment and Plan Assessment 62 year old M receiving unasyn/vancomycin for treatment of oral/facial abscess following root canal. Patient to OR for I&D today. Previous blood cultures growing methicillin sensitive staph epi (1 set aerobic/anaerobic, second set was negative) and was considered a contaminant at that time. Repeat cultures pending. Plan Vancomycin * Loading dose: 2000 mg IV x 1 * Maintenance dose: 1000 mg IV every 12 hours * Regimen is predicted to achieve target AUC/FREDI of 400-600 mg/L.hr * Random level ordered for: 11/13 AM labs Pharmacy will continue to follow and will adjust dose/frequency as necessary. Thank you. Pharmacy has transitioned to AUC monitoring for vancomycin. AUC/FREDI is the preferred PK/PD target and is associated with decreased risk of nephrotoxicity compared to traditional trough targets.
[2022-09-02] MEDS: HEPARIN SOD 5,000 UNIT/0.5 ML VIAL SQ SCH ×2 (11:15→20:55)
[2022-09-02] MEDS: VANCOMYCIN HCL 1,000 MG in SODIUM CHLORIDE 0.9% 250 ML IV SCH (12:40)
[2022-09-02] MEDS: ATENOLOL 50 MG TABLET PO SCH ×2 (12:40→20:54)
[2022-09-02] MEDS ORDERED: fentaNYL citrate 100 MCG/2 ML VIAL ONE (13:07)
[2022-09-02] MEDS ORDERED: ROCURONIUM BROMIDE 10 MG/ML 5 ML VIAL IV ONE (13:07)
[2022-09-02] MEDS ORDERED: ONDANSETRON INJ 2 MG/ML 2 ML VIAL ONE (13:07)
[2022-09-02] MEDS ORDERED: PROPOFOL IV EMULSION 10 MG/ML 20 ML VIAL IV ONE (13:07)
[2022-09-02] MEDS ORDERED: LIDOCAINE 2% MPF LOCAL 5 ML VIAL INFIL ONE (13:07)
--- NOTE | 2022-09-02 13:22 | History & Physical Bridge Note ---
Date of Service September 02, 2022 History & Physical Bridge Note I have examined the patient, reviewed the History & Physical and in the interval since the performance of the History & Physical I have noted the following changes of clinical significance: no changes noted. OK for I&D in OR Now! REVIEWED SURGERY WITH AND HER FATHER WHO IS A RETIRED DENTIST
[2022-09-02] MEDS ORDERED: SUCCINYLCHOLINE CHLORIDE 20 MG/ML 10 ML VIAL IV ONE (13:24)
[2022-09-02] MEDS ORDERED: METOCLOPRAMIDE HCL INJ 5 MG/ML 2 ML VIAL ONE (13:25)
[2022-09-02] MEDS ORDERED: ATROPINE SULFATE 0.1 MG/ML 10ML SYR IV PRN (13:28)
[2022-09-02] MEDS ORDERED: ePHEDrine sulfate 50 MG/ML AMP IV PRN (13:28)
[2022-09-02] MEDS ORDERED: ONDANSETRON INJ 2 MG/ML 2 ML VIAL IV PRN (13:28)
[2022-09-02] MEDS ORDERED: fentaNYL citrate 100 MCG/2 ML VIAL IV PRN (13:28)
[2022-09-02] MEDS ORDERED: LABETALOL HCL IV 5 MG/ML 20ML IV ONE (13:51)
[2022-09-02] MEDS ORDERED: CHLORHEXIDINE GLUCONATE 0.12% 480 ML MT ONE (13:54)
[2022-09-02] MEDS ORDERED: BUPIVACAINE/EPINEPHRINE 0.5% 1:200,000 1.8 ML CARP ONE (13:58)
[2022-09-02] MEDS ORDERED: SUGAMMADEX SODIUM 200 MG/2 ML VIAL IV ONE (14:03)
--- NOTE | 2022-09-02 14:35 | Operative Report ---
PG Post Operative Report Pre & Post Diagnosis Operation Date: 09/02/22 08:35 Pre-Op Diagnosis: Odontogenic abscess Post-Op Diagnosis: Odontogenic abscess I identified the patient and participated in the time-out.: Yes Procedure Operation Date: 09/02/22 08:35 Actual Procedures p incision and drainage left submandibular gland(Left) - Jimmy Rojas DMD Diagnosis: ICD 10 History of root canal procedure Z98.890 Abscess of face L02.01 Abscess, dental K04.7 Submandibular space infection K12.2 History of stroke Z86.73 Acquired blindness H54.7 Procedure: CPT [id number] I&D left submandibular and floor of the mouth Surgeon Jimmy Rojas DMD Silver Steward none Estimated Blood Loss 0 Findings Consistent with Post-Op Diagnosis submandibular abscess left, left floor of the mouth Failed out patient therapy Specimens I and D left side Drains 1/4 Wilfredo x 2 Left Floor of the mouth and Left submandibular Anesthesia Type General Complications none Indications swelling not responding to oral antibiotics Description of Procedure Actual Procedures p Incision and Drainage Left Floor of the mouth and Submandibular Abscess;(Not Applicable) - Jimmy Rojas DMD Once cleared for surgery general anesthesia was achieved, the eyes were protected by the anesthesia dept criteria. A time out was take for patient ID, antibiotics, equipment and position verification once all agreed the procedure began. Local anesthesia using Marcaine with a vasoconstrictor ( 1.8 ml x 3 ) given into left inferior alveolar nerve A throat pack was placed after the oral cavity was irrigated with saline. Once a surgical level of anesthesia was obtained and the local anesthesia was given time for the blocks the surgery was started. I turned my attention to the infection which was located in the left floor of the mouth and submandibular l area. The tongue was slightly elevated and there was also swelling associated with the retromolar, subperiosteal and Submandibular spaces. Incision and Drainage left submandibular space Using a 15 blade an incision was made medical to the alveolar ridge and lateral to the duct of the submandibular gland. Once the incision was made a lot of pus extruded from the site. This drainage was cultured for anaerobic and aerobic bacteria. A curved hemostat was carefully placed into the infected space along the medial side of the lower jaw and into the submandibular space. Now a small skin incision was made at the most fluctuant site and the small hemostat was pushed through. I lot of pus was extruding from the floor of the mouth to the submandibular drain. Now the hemostat was directed from the skin site into the subperiosteal/ retromandibular and mandibular space infection. More infection was allowed to drain-- once another 1/4 inch Wilfredo was placed the 2 drains were secured to the skin with a 4-0 nylon suture. I palpated the cheek and submental area and no further drainage was expressed. The area was irrigated with at least 100 ml of NS solution. I inspected the sites to insure all bleeding was controlled. I removed the throat pack and suctioned the throat. A gauze pressure dressings was placed. All instrument and sponge count was correct. the patient was allowed to awake from the anesthesia. Once full awake the anesthesia tube was removed and the patient was taken to the recovery room with all vital sign stable. The patient tolerated the surgery very well. I will follow the patient in my office, Rx and instructions will be given upon discharge. I attest to the content of the Intraoperative Record and any orders documented therein. Any exceptions are noted below.
--- NOTE | 2022-09-02 15:32 | Anesthesiology Progress Note ---
Date of Service September 02, 2022 Anesthesia Post Procedure Vital Signs Vital Signs: Temp Pulse Pulse Resp BP Pulse Ox O2 Del Method 09/02/22 14:55 97.9 F 89 19 167/72 H 100 Room Air 09/02/22 14:45 89 22 177/64 H 100 Oxymask 09/02/22 14:35 94 H 13 146/71 H 97 Oxymask 09/02/22 15:05 97.9 F 91 H 19 172/65 H 95 Room Air 09/02/22 14:24 97.7 F 93 H 17 170/65 H 100 Oxymask 09/02/22 08:00 88 09/02/22 11:27 97.9 F 90 18 179/68 H 94 Room Air 09/02/22 07:32 98.1 F 89 20 201/69 H 93 Room Air 09/02/22 03:08 99.1 F 91 H 18 176/72 H 92 Room Air 09/02/22 01:07 82 09/01/22 23:17 99.5 F 88 18 180/68 H 93 Room Air 09/01/22 19:56 98.1 F 89 16 180/69 H 93 Room Air 09/01/22 16:44 Room Air 09/01/22 17:35 98.2 F 92 H 16 205/70 H 97 Room Air O2 Flow Rate 09/02/22 14:55 09/02/22 14:45 4 09/02/22 14:35 6 09/02/22 15:05 09/02/22 14:24 6 09/02/22 08:00 09/02/22 11:27 09/02/22 07:32 09/02/22 03:08 09/02/22 01:07 09/01/22 23:17 09/01/22 19:56 09/01/22 16:44 09/01/22 17:35 Pain Intensity Right Head: Pain Intensity: 4 Transfer of Care Handoff Completed per policy Notes Mental Status: alert / awake / arousable and participated in evaluation Patient Amnestic to Procedure: Yes Nausea / Vomiting: adequately controlled Pain: adequately controlled Airway Patency, RR, SpO2: stable & adequate BP & HR: stable & adequate Hydration State: stable & adequate Anesthetic Complications: no major complications apparent and Pt Satisfied with anesthetic care
[2022-09-02] MEDS: SODIUM CHLORIDE 0.9% 1000ML 1,000 ML IV SCH ×2 (16:02→23:13)
--- NOTE | 2022-09-02 17:37 | Billing Data ---
Date of Service September 02, 2022 Coding Level of Care Code 26734 Subseq Hosp Care Lvl 3
[2022-09-02] MEDS: LANTUS PER UNIT CHARGE SQ SCH (20:37)
[2022-09-02] MEDS: NORTRIPTYLINE HCL 25 MG CAP PO SCH (20:56)
[2022-09-02] MEDS: TAMSULOSIN HCL 0.4 MG CAP PO SCH (20:56)
[2022-09-03] MEDS ORDERED: INSULIN ASPART PER UNIT SC SCH
[2022-09-03] MEDS: NITROGLYCERIN 2% OINTMENT 30GM TUBE EXT SCH ×3 (00:13→12:46)
[2022-09-03] MEDS: hydrALAZINE HCL 20 MG/ML VIAL IV PRN (00:14)
[2022-09-03] MEDS: KETOROLAC TROMETHAMINE 15 MG/ML VIAL IV PRN (00:15)
[2022-09-03] MEDS: ACETAMINOPHEN 10MG/ML Custom 650 MG in EMPTY BAG 0 ML IV SCH (01:40)
[2022-09-03] MEDS ORDERED: VANCOMYCIN LEVEL ONE (04:44)
[2022-09-03] MEDS: AMPICILLIN/SULBACTAM SOD 3,000 MG in 0.9 % SODIUM CHLORIDE 100 ML IV SCH ×3 (05:25→20:34)
[2022-09-03] MEDS: LEVOTHYROXINE SODIUM 175 MCG TABLET PO SCH (05:25)
[2022-09-03 06:27] LABS: Basophils # (auto) 0.03 K/uL (0-0.2); Basophils % (auto) 0.4 %; Eosinophils # (auto) 0.08 K/uL (0-0.50); Eosinophils % (auto) 1.2 %; Hematocrit (blood only) 26.2 % (40.1-51.0); Immature Granulocytes % (auto) 1.4 %; Lymphocytes # (auto) 1.79 K/uL (1.2-3.4); Lymphocytes % (auto) 25.9 %; Mean Corpuscular Hemoglobin 32.1 pg (25.0-34.0); Mean Corpuscular Hgb Conc 34.4 g/dL (32.0-36.0); Mean Corpuscular Volume 93.6 fL (80.0-100.0); Mean Platelet Volume 9.9 fL (9.4-12.4); Monocytes # (auto) 0.71 K/uL (0.24-0.82); Monocytes % (auto) 10.3 %; Neutrophils # (auto) 4.21 K/uL (1.4-6.5); Neutrophils % (auto) 60.8 %; Platelet Count 256 K/uL (130-400); RDW Coefficient of Variation 13.1 % (11.5-14.5); RDW Standard Deviation 44.9 fL (36.4-46.3); White Blood Count 6.92 K/ul (4.8-10.8)
--- NOTE | 2022-09-03 07:00 | Hospitalist Progress Note ---
Date of Service September 03, 2022 Assessment & Plan (1) Submandibular space infection: Plan: S/p root canal 08/29/2022 CTface: Interval development of 2.5 x 1.8 cm rim-enhancing fluid and gas containing collection along the left hemimandible since prior CT 08/29/2022 consistent with odontogenic abscess, small periapical lucency/abscess of the left first and second mandibular molars noted. Moderate adjacent inflammation with mass-effect. CThead: No hemorrhage, mass-effect, or acute stroke No leukocytosis. Blood cultures 08/28/2022 1 set of 2 (2/4) positive for [employer], suspected at the time to be contamination Repeat blood cultures negative after 24 hours. - S/p I&D per Oral Maxillofacial Surgeon 09/02 - Will continue Unasyn plan to transition to Augmentin at discharge (2) Urinary retention: Plan: - History of neurogenic bladder and BPH - pt states he was last able to urinate on his own overnight - 1000cc in bladder on bladder scan - pack inserted, plan for trial of voiding tomorrow. If unsuccessful will have to consider discharge with Pack vs straight cath thoughtout the day (3) Chronic diastolic CHF (congestive heart failure): Plan: CAD with diastolic CHF Admitting EKG: Normal sinus rhythm, QTC 440, no ST segment changes TTE 04/14/2021: EF 60-65%. No regional wall motion abnormalities. Mild mitral regurg. Mild concentric LVH. Technically challenging study. Aspirin 81 mg daily Isosorbide mononitrate 30 mg every morning Losartan 100 mg every morning Continue atenolol 50 mg p.o. twice daily - Euvolemic on exam will resume home Bumex tomorrow morning (4) CKD (chronic kidney disease) stage 2, GFR 60-89 ml/min: Plan: CKD 2/2 DM1 Creatinine baseline appears approximately 1.11.3 Admitting creatinine 1.13. Slightly elevated ratio. -Renal dysfunction is from type I DM (5) Hypertension: Plan: Hypertension Losartan restarted today Continue amlodipine 2.5 mg daily Atenolol as otherwise noted (6) Diabetes mellitus type 1, uncontrolled: Plan: Type 1 diabetes mellitus Admitting BSG 184 - Home Insulin: 38u levimir AM, 46u levimir qHS, 1:4 carb ratio + SSI 2:20 over 150 Basal bolus with SSI on admission, pharmacy consulted given high requirements with infection and potential need for steroids Glucose checks AC/at bedtime, dose reduce Lantus while n.p.o. (7) Acquired blindness: Plan: Acquired Blindness - 2/2 diabetic retinopathy - 9200x laser surgery tx in retina, 44 cryotherapy in retinas for diabetic retinopathy @ age 25. - Currently blind in both eyes, can not even see light/shadows (8) History of stroke: Plan: Past CVA - 2013 CVA with subarachnoid hemorrhage. 2 older strokes noted on MRI - Went ot [place] for neurosurgery. Did not have surgery, was followed with supportive care - No residual focal deficits, but does have some cognitive impairment and memory problems. (9) Hypothyroidism: Plan: Hypothyroidism Admitting TSH normal Continue Synthroid 175 mcg daily (10) Hyperlipidemia: Plan: Hyperlipidemia Continue to statin 80 mg daily, no transaminitis on admit (11) Sleep apnea: Plan: LUZMA CPAP nightly as tolerated with facial swelling (12) COPD (chronic obstructive pulmonary disease): Plan: COPD PFT 12/2020: FVC 85% predicted, FEV1 57% predicted, FEV1/FVC actual 53% predicted 67, moderate airflow obstruction without bronchodilator response stable from prior study. Albuterol as needed Continue Trelegy/formulary equivalent (13) GERD (gastroesophageal reflux disease): Plan: GERD Protonix ,Pepcid daily Sucralfate 1 g p.o. twice daily (14) Elevated bilirubin: Plan: Prior Elevated bilirubin Following with GI as outpatient. - Bili normalized, no transaminitis - May use dose reduced Tylenol to 2g daily Plan Chronic daily headache Patient takes Ajovy monthly T continue nortriptyline 50 mg nightly Typically headaches on the top of the head/left eye. Follows with neurology. Has failed Emgality, nortriptyline, beta-waylon, riboflavin, magnesium treatment. Topamax limited by kidney disease. - Headache improved from yesterday; likely secondary to odontogenics infection but will continue to monitor blood pressures DVT prophylaxis: SCDs, heparin given history of renal dysfunction. Hold heparin SQ dose prior to surgery Diet: N.p.o. with essential meds Disposition: PCU for airway monitoring/IV antihypertensives CODE STATUS: Full code Admission and Anticipated Discharge Date Admission Date: September 01, 2022 Supervising Physician Co-Signing Physician Notes I personally examined the patient and verified all rajan points of history and exam, discussed case, and agree with decision making with Dr Zheng Pain under decent control. Unable to void. Pack placed. Apparently this has happened in the past. Discussed voiding trial and possibly needing catheter for homethey noted it would be nearly impossible to straight cath at home if this was requiredbut also understand he might be able to void. Maxillofacial input greatly appreciatedfrom that and he is doing quite well. vitals noted nad heent nc at mmm dressing on side of jaw breathing unlabored no accessory muscle use good effort dental infection/abscess - now post drainage. unasyn, anticipate transition to Augmentin, continue pain control. Stable for discharge from this standpoint Urinary retentionlikely due to pain/surgery/neurogenic bladder. Pack drainage for now. Voiding trial tomorrow. He and are comfortable with the idea of going home with a Pack and having an outpatient voiding trial if necessary DVT proph - heparin SQ otherwise as above Subjective 62 year old male with a past medical history of GERD, BPH, gastric ulcer, insulin dependent DM, solitary kidney, CAD with HFpEF, neurogenic bladder, peripheral neuropathy, HLD, complex sleep apnea, COPD, hypothyroidism presents with odontogenic infection. S/p root canal 08/29 and was seen in the ED on the same day for fever/purulent drainage, Was started given dose of cefepime and discharged with penicillin. 09/01 states that he had a headache that was different from his chronic headaches; this prompted him to come to ED. Improvement in both swelling and pain in jaw this morning. Denies fever, chills. Able to tolerate oral intake and is able to swallow pills. Pt states that his abdomen feels dissented and has been unable to urinate since last night. Review of Systems Review of Systems: As per HPI Physical Exam Physical Exam: Constitutional: well-appearing, no acute distress HEENT: NCAT, no conjunctival injection, complete acquired blindness, soft tissue swelling left mandible, surgical dressings presents- clean and dry CV: regular rhythm, no murmur appreciated, extremities well-perfused, no LE edema Resp: CTABL, no wheezes/rales/rhonchi appreciated, no increased work of breathing GI: soft, distended, nontender, BS normoactive MSK: no gross deformities appreciated Skin: warm, dry, no rash appreciated Neuro: alert, oriented, no focal neurologic deficit appreciated Results & Data Results & Data ([facility]) Vital Signs (Past 12 Hours) Vital Signs Temp Pulse Pulse Resp BP Pulse Ox O2 Del Method 09/03/22 02:51 36.7 C 73 18 167/71 H 93 Room Air 09/02/22 22:56 76 09/02/22 22:39 37.2 C 79 18 186/68 H 95 Room Air 09/02/22 19:24 37.0 C 87 18 188/67 H 95 Room Air Resident Activity Tracking Resident Involvement: Resident Care Provided Care Provided: Adult Hospital Medicine (1) Hyperlipidemia Hyperlipidemia type: mixed hyperlipidemia Qualified Code(s): E78.2 - Mixed hyperlipidemia (2) Hypothyroidism Hypothyroidism type: acquired Qualified Code(s): E03.9 - Hypothyroidism, unspecified (3) Diabetes mellitus type 1, uncontrolled Glycemic state: with hyperglycemia Qualified Code(s): E10.65 - Type 1 diabetes mellitus with hyperglycemia (4) COPD (chronic obstructive pulmonary disease) COPD type: unspecified COPD Qualified Code(s): J44.9 - Chronic obstructive pulmonary disease, unspecified (5) GERD (gastroesophageal reflux disease) Esophagitis presence: esophagitis presence not specified Qualified Code(s): K21.9 - Gastro-esophageal reflux disease without esophagitis
[2022-09-03 07:27] LABS: Albumin Globulin Ratio 0.9 (0.9-2); Albumin Level 3.2 gm/dl (3.4-5.0); BUN Creatinine Ratio 16.2 (10-20); Bilirubin,Total 0.4 mg/dl (0.2-1.0); Calcium 8.7 mg/dl (8.5-10.1); Creatinine Clr Calc Pharmacy 127.2 ml/min; Est GFR (African American) 117.8 ml/min; Est GFR (Non-African American) 101.6 ml/min; Globulin 3.4 gm/dl (2.5-4.0); Potassium 3.3 mmol/L (3.5-5.1); Total Protein 6.6 gm/dl (6.0-8.3)
[2022-09-03] MEDS: amLODIPine BESYLATE 5 MG TAB PO SCH (09:09)
[2022-09-03] MEDS: HEPARIN SOD 5,000 UNIT/0.5 ML VIAL SQ SCH ×2 (09:09→20:36)
[2022-09-03] MEDS: ATENOLOL 50 MG TABLET PO SCH ×2 (09:09→20:35)
[2022-09-03] MEDS: ISOSORBIDE MONO EXTENDED REL 30 MG TABCR PO SCH (09:09)
[2022-09-03] MEDS: FLUTICASONE FUROATE 100MCG 14 PUFFS/INHALER INH SCH (09:10)
[2022-09-03] MEDS: UMECLIDINIUM/VILANTEROL 62.5/25MCG 7 PUFFS/INHALER INH SCH (09:10)
[2022-09-03] MEDS: INSULIN ASPART PER UNIT SC SCH ×4 (09:23→21:12)
[2022-09-03] MEDS: LANTUS PER UNIT CHARGE SQ SCH ×2 (09:24→21:58)
[2022-09-03] MEDS ORDERED: POLYETHYLENE (MIRALAX) 17 GM PACK PO PRN (09:38)
[2022-09-03] MEDS ORDERED: POTASSIUM CHLORIDE CRTAB 20 MEQ TABCR PO STA (09:41)
[2022-09-03] MEDS ORDERED: POTASSIUM CHLORIDE CRTAB 20 MEQ TABCR PO ONE (09:48)
[2022-09-03] MEDS ORDERED: ACETAMINOPHEN 500 MG TAB PO PRN (09:55)
[2022-09-03] MEDS ORDERED: INSULIN HUMAN REGULAR PER UNIT 5 UNITS in SYRINGE 4.95 ML IV ONE (12:00)
[2022-09-03] MEDS: PANTOprazole 40 MG TAB PO SCH ×2 (12:03→20:36)
[2022-09-03] MEDS: SUCRALFATE 1 GM TAB PO SCH ×2 (12:03→20:37)
[2022-09-03] MEDS: FAMOTIDINE 10 MG TABLET PO SCH ×2 (12:03→17:34)
[2022-09-03] MEDS: LOSARTAN POTASSIUM 50 MG TAB PO SCH (13:51)
[2022-09-03] MEDS: ACETAMINOPHEN 500 MG TAB PO PRN ×2 (13:52→17:34)
--- NOTE | 2022-09-03 15:15 | Pharmacy Report ---
Pharmacy Glycemic Short Note 2 - Date of Service September 03, 2022 - Glycemic Short BSG Results (Last 24 hours): 09/02/22 09/02/22 09/02/22 16:35 20:14 23:59 Glucose POC Glucose 254 H 194 H 129 H 09/03/22 09/03/22 09/03/22 05:47 07:21 11:20 Glucose 101 H POC Glucose 114 H 301 H* 09/03/22 11:21 Glucose POC Glucose 328 H* OUTPATIENT ANTIDIABETIC REGIMEN: * Levemir 38 units SQ qAM + 46 units qHS, 1:4 carb ratio + SSI 2:20 over 150 (per H&P) * A1c = 8.3% (09/02/22) ASSESSMENT: * Sam is a 62 yo male with h/o of type 1 diabetes admitted for submandibular space infection. He is POD #1 s/p oral maxillofacial surgery. * He received 111 units of SQ insulin yesterday (80 units basal + 31 units bolus - patient was NPO during this time). * Fasting BSG at goal. Will back off Lantus dosing due to drastic improvement (249 -> 114 mg/dL). During previous admission, patient become hypoglycemia on home dose of basal insulin. * Lunchtime BSG of 328 mg/dL. Per nursing staff, patient had orange juice with his Miralax around 10am. I suspect this likely caused jump in BSG from 114 at breakfast to 328 mg/dL at lunch. Ordered conservative dose of IV regular insulin (5 units). No changes to novolog parameters for now. PLAN FOR INPATIENT GLYCEMIC CONTROL: * Hold outpatient oral diabetes medications * Basal insulin * Lantus 30-35 units SQ BID * Bolus insulin * NovoLog per scale ACHS or Q6hrs while NPO * Goal Range: Low 120 mg/dL - High 150 mg/dL * Correction Factor: 12 mg/dL/unit * Nutritional / Prandial insulin per carb ratio of 1 unit per 3.5 grams CHO consumed
--- NOTE | 2022-09-03 15:19 | Billing Data ---
Date of Service September 03, 2022 Coding Level of Care Code 27162 Subseq Hosp Care Lvl 3
[2022-09-03] MEDS: ONDANSETRON INJ 2 MG/ML 2 ML VIAL IV PRN ×2 (15:23→19:34)
--- NOTE | 2022-09-03 17:48 | Oral/Maxillofacial Progress Nt ---
Date of Service September 03, 2022 Assessment & Plan Admission and Anticipated Discharge Date Admission Date: September 01, 2022 Subjective Post Op infection evaluation 24 hours post op OK for discharge as per oral surgery The infected area is draining very well and the area is much softer Swelling is decreasing and the soft tissue is softer Excellent drainage is noted. Drain will be removed on Sep 07 at 3:45 Cultures still pending Infection has responded very well to the antibiotics and the I and D. I requested that the patient continue with massage, heat and wound care, oral care At this time the area is well healed and responded well to treatment. Follow up 2021 at 3:45 Results & Data ([facility]) Vital Signs (Past 12 Hours) Vital Signs Temp Pulse Pulse Resp BP Pulse Ox O2 Del Method 09/03/22 15:35 36.3 C L 76 18 155/64 H 96 Room Air 09/03/22 09:00 79 09/03/22 08:00 76 09/03/22 11:30 36.7 C 75 20 174/68 H 95 Room Air 09/03/22 07:31 36.7 C 77 18 188/72 H 92 Room Air PG Care Time/CCT Total # of Minutes Spent Total Time Spent with Patient: Total time spent is greater than 50% in coordination of care (as documented) at patient's floor/unit and/or counseling patient: Coding Level of Care Code None
[2022-09-03] MEDS: SODIUM CHLORIDE 1 GM TABLET PO SCH (20:36)
[2022-09-03] MEDS: NORTRIPTYLINE HCL 25 MG CAP PO SCH (20:36)
[2022-09-03] MEDS: TAMSULOSIN HCL 0.4 MG CAP PO SCH (20:37)
[2022-09-03] MEDS ORDERED: ATORVASTATIN 40 MG TAB PO SCH (21:00)
[2022-09-03] MEDS ORDERED: [UNRECOGNIZED DRUG - OTHER] PO SCH (21:00)
[2022-09-04] MEDS: AMPICILLIN/SULBACTAM SOD 3,000 MG in 0.9 % SODIUM CHLORIDE 100 ML IV SCH ×3 (00:29→13:27)
[2022-09-04] MEDS: ONDANSETRON INJ 2 MG/ML 2 ML VIAL IV PRN (01:27)
[2022-09-04] MEDS: LEVOTHYROXINE SODIUM 175 MCG TABLET PO SCH (05:42)
[2022-09-04] MEDS: ACETAMINOPHEN 500 MG TAB PO PRN (06:17)
[2022-09-04 08:13] LABS: Basophils # (auto) 0.03 K/uL (0-0.2); Basophils % (auto) 0.5 %; Eosinophils % (auto) 3.6 %; Hematocrit (blood only) 25.7 % (40.1-51.0); Hemoglobin 8.9 g/dl (14.0-18.0); Immature Granulocytes # (auto) 0.09 K/uL (0.00-0.02); Immature Granulocytes % (auto) 1.6 %; Lymphocytes # (auto) 1.34 K/uL (1.2-3.4); Lymphocytes % (auto) 24.3 %; Mean Corpuscular Hemoglobin 31.9 pg (25.0-34.0); Mean Corpuscular Hgb Conc 34.6 g/dL (32.0-36.0); Mean Corpuscular Volume 92.1 fL (80.0-100.0); Mean Platelet Volume 9.9 fL (9.4-12.4); Monocytes % (auto) 9.1 %; Neutrophils # (auto) 3.35 K/uL (1.4-6.5); Neutrophils % (auto) 60.9 %; Platelet Count 281 K/uL (130-400); RDW Standard Deviation 44.1 fL (36.4-46.3); Red Blood Count 2.79 M/uL (4.63-6.08); White Blood Count 5.51 K/ul (4.8-10.8)
[2022-09-04] MEDS: ISOSORBIDE MONO EXTENDED REL 30 MG TABCR PO SCH (08:31)
[2022-09-04] MEDS: amLODIPine BESYLATE 5 MG TAB PO SCH (08:32)
[2022-09-04] MEDS: ATENOLOL 50 MG TABLET PO SCH (08:34)
[2022-09-04] MEDS: FAMOTIDINE 10 MG TABLET PO SCH (08:34)
[2022-09-04] MEDS: LOSARTAN POTASSIUM 50 MG TAB PO SCH (08:35)
[2022-09-04] MEDS: PANTOprazole 40 MG TAB PO SCH (08:35)
[2022-09-04] MEDS: SUCRALFATE 1 GM TAB PO SCH (08:35)
[2022-09-04] MEDS: HEPARIN SOD 5,000 UNIT/0.5 ML VIAL SQ SCH (08:36)
[2022-09-04] MEDS: FLUTICASONE FUROATE 100MCG 14 PUFFS/INHALER INH SCH (08:38)
[2022-09-04] MEDS: UMECLIDINIUM/VILANTEROL 62.5/25MCG 7 PUFFS/INHALER INH SCH (08:39)
[2022-09-04] MEDS: LANTUS PER UNIT CHARGE SQ SCH (08:41)
[2022-09-04] MEDS: INSULIN ASPART PER UNIT SC SCH ×2 (08:41→12:48)
[2022-09-04] MEDS ORDERED: BUMETANIDE 1 MG TAB PO SCH (09:00)
[2022-09-04] MEDS ORDERED: FEXOFENADINE HCL 180 MG TAB PO SCH (09:00)
[2022-09-04] MEDS ORDERED: SENNA 8.6 MG TAB PO SCH (09:00)
[2022-09-04 09:04] LABS: Albumin Globulin Ratio 0.9 (0.9-2); Albumin Level 3.2 gm/dl (3.4-5.0); BUN Creatinine Ratio 9.1 (10-20); Bilirubin,Total 0.5 mg/dl (0.2-1.0); Calcium 8.4 mg/dl (8.5-10.1); Est GFR (African American) 119.3 ml/min; Est GFR (Non-African American) 102.9 ml/min; Globulin 3.5 gm/dl (2.5-4.0); Magnesium 1.8 mg/dl (1.7-2.4); Potassium 3.2 mmol/L (3.5-5.1); Total Protein 6.7 gm/dl (6.0-8.3)
[2022-09-04] MEDS: SODIUM CHLORIDE 1 GM TABLET PO SCH (09:57)
[2022-09-04] MEDS ORDERED: POTASSIUM CHLORIDE CRTAB 20 MEQ TABCR PO ONE (10:01)
[2022-09-04] MEDS: POTASSIUM CHLORIDE / WTR 10 MEQ/100 ML PLCT IV SCH ×2 (10:42→11:56)
[2022-09-04] MEDS: KETOROLAC TROMETHAMINE 15 MG/ML VIAL IV PRN (12:53)
[2022-09-04] MEDS ORDERED: CALCIUM CARBONATE 500 MG CHEWABLE TAB PO PRN (12:53)
--- NOTE | 2022-09-04 14:32 | Pharmacy Report ---
Pharmacy Glycemic Short Note 2 - Date of Service September 04, 2022 - Glycemic Short BSG Results (Last 24 hours): 09/03/22 09/03/22 09/03/22 15:49 16:14 20:37 Glucose POC Glucose 91 103 H 42 L* 09/03/22 09/04/22 09/04/22 20:38 01:51 07:29 Glucose 106 H POC Glucose 84 136 H 09/04/22 09/04/22 07:56 12:02 Glucose POC Glucose 106 H 242 H OUTPATIENT ANTIDIABETIC REGIMEN: * Levemir 38 units SQ qAM + 46 units qHS, 1:4 carb ratio + SSI 2:20 over 150 (per H&P) * A1c = 8.3% (09/02/22) ASSESSMENT: 09/04/22: * Last night (09/03/22), the patient refused his PM insulin. Despite this, his fasting BSG this morning was recorded at 106mg/dL. 30u of lantus was administered along with bolus insulin. * Lunchtime BSG measured at 242mg/dL which is quite a bit above goal; consistent with hyperglycemic lunchtime BSG's from previous days (257mg/dL and 328mg/dL on 09/02 and 09/03 respectively). * Given that lunchtime values seem to be an outlier for this patient, and that overcorrection of these values have caused lower subsequent BSG's, bolus parameters specific to 0730 administrations will be put in place. 09/03/22: * Sam is a 62 yo male with h/o of type 1 diabetes admitted for submandibular space infection. He is POD #1 s/p oral maxillofacial surgery. * He received 111 units of SQ insulin yesterday (80 units basal + 31 units bolus - patient was NPO during this time). * Fasting BSG at goal. Will back off Lantus dosing due to drastic improvement (249 -> 114 mg/dL). During previous admission, patient become hypoglycemia on home dose of basal insulin. * Lunchtime BSG of 328 mg/dL. Per nursing staff, patient had orange juice with his Miralax around 10am. I suspect this likely caused jump in BSG from 114 at breakfast to 328 mg/dL at lunch. Ordered conservative dose of IV regular insulin (5 units). No changes to novolog parameters for now. PLAN FOR INPATIENT GLYCEMIC CONTROL: * Hold outpatient oral diabetes medications * Basal insulin * Lantus 30u x1 this AM; 5-20 units to be administered this PM per scale (see EHR for details). * Bolus insulin * NovoLog per scale ACHS or Q6hrs while NPO * Goal Range: Low 120 mg/dL - High 150 mg/dL * 0730: * Correction Factor: 12 mg/dL/unit * Nutritional / Prandial insulin per carb ratio of 1 unit per 3 grams CHO consumed * 1130, 1630, 2100 * Correction Factor: 15 mg/dL/unit * Nutritional / Prandial insulin per carb ratio of 1 unit per 3.5 grams CHO consumed
[2022-09-04] MEDS ORDERED: INSULIN ASPART PER UNIT SC SCH (16:30)
--- NOTE | 2022-09-04 17:17 | Discharge Summary ---
Date of Service September 04, 2022 Admission HPI Per Admitting Provider Sam Larson is a 62-year-old male with a past medical history of GERD, BPH with LUTS, gastric ulcer, insulin-dependent diabetes, solitary kidney, CAD with diastolic CHF, CKD, neurogenic bladder, peripheral neuropathy, hyperlipidemia, complex sleep apnea, COPD, hypothyroidism who underwent a root canal 08/29/2022 and 2 was seen in the ER following this for fever with purulent drainage at which time he was given an empiric dose of cefepime as an disc charged to continue penicillin with outpatient follow-up. He represents 09/01 and is found to have development of abscess with gas as noted below. 08/30/2022 patient was noted to have GPC's in clusters speciated for staph epi, patient was notified at the time who his indicated patient was clinically improving and ultimately question that cultures were likely contamination. Root Canal Dr. Jacinto on Sunday, one tooth lower left molar. Had a fall last night from dizziness, was not presyncopal. Hit head 3x, first time went down frontwards and had a hold of the doorknob and was pulling himself up and hit the vanity when he then swung around and hit his head on the front, let go of the knob, and fell backwards away from the sink hitting the back of his head. Did not pass out or lose conciousness. NO pain at bedside assessment. Chronic daily headaches, last this morning which was on the upper third of his head instead of the whole head which is unusual for him. Different headache is what prompted him to come in. Has been globally weak in the last week, hypertensive in low 200s while in pain with jaw. Tachycardic at home to ~100. Having difficulty swallowing due to pain. NO change in breathing. Does have COPD at baseline. Cannot use bipap due to swelling in his L cheek. Cold, not sure if he has been having chills/sweats. 99-100*F temperature all week. Jaw does hurt /, improving slighlty with ice and tylenol. Now down to 4/10. Gradually worsening over the week. Has followed with GI, having liver uiltrasound and bili followup. OK for dose reduced tylenol per pt/. Medical History: Reviewed Medications: Reviewed Surgical History: Reviewed Allergies: Reviewed Social History: Former smoker, quit 06/30/2009. EtoH rare socially during Code Status: Surrogate DM would be . Full Code. Admission Exam Per Admitting Provider General: A&Ox3. NAD. Cooperative. HEENT: Atraumatic, normocephalic. Pupils clouded with no response, patient with complete acquired blindness. No visual response to confrontation. Hearing intact. Left angle of the mandible and inferior mandible with tender swelling. Internal exam without production of obvious purulence, but soft tissue swelling at the posterior left inner jaw is appreciated. Mucous membranes tacky. Uvula midline with exam assisted by tongue depressor, Mallampati 4. No wheezing/stridor. Patient resting comfortably with ice pack against left cheek. Pulm: CTAB A&P. -wheezes, -rales, -rhonchi. Symmetrical chest rise. No increase in work of breathing. No respiratory distress. Cardiac: RRR, -mrg. Radial pulses intact and symmetrical. Abdominal: Nontender, nondistended, soft. BS present. Extremities: Warm, dry. Principal Diagnosis odontogenic abscess Discharge Exam NAD. Vitals WNL. Respiratory CTA bilaterally. No rhonchi, wheezing, or crackles. Non labored respirations. Cardiovascular RRR. No murmur heard. No LE edema. Gastrointestinal (Abdomen) +BS. Nontender in all quadrants. No masses noted. Genitourinary Urinary retention noted on last bladder scan 740 mL. Tried to void again after this but output only 100 mL. Discharge Data Allergies Allergy/AdvReac Type Severity Reaction Status Date / Time lisinopril Allergy Severe " TONGUE Verified 09/01/22 15:07 SWELLS"--ANGIOEDEMA lorazepam AdvReac Intermediate Hallucinati Verified 09/01/22 15:07 ons Consultations 09/01/22 10:48 ED Decision to Admit Stat 09/01/22 11:54 Consult Oromaxillofacial Surgery Routine Procedures Performed Operation Date: 09/02/22 08:35 Actual Procedures p incision and drainage left submandibular gland(Left) - Jimmy Rojas DMD Ordered Studies 09/01/22 08:39 CT face [CT facial bones w con] Stat Interval development of a 2.5 x 1.8 cm rim-enhancing fluid and gas containing collection along the inner aspect of the body of the left hemimandible since prior CT consistent with an abscess, odontogenic in etiology. Small periapical lucencies/abscesses of the left first and second mandibular molars. Moderate adjacent inflammation with mass effect. CT head/brain wo con Stat There is no hemorrhage, mass effect, or evidence of acute territorial ischemia by CT criteria. Hospital Course (1) Submandibular space infection: S/p root canal 08/29/2022 CTface: Interval development of 2.5 x 1.8 cm rim-enhancing fluid and gas containing collection along the left hemimandible since prior CT 08/29/2022 consistent with odontogenic abscess, small periapical lucency/abscess of the left first and second mandibular molars noted. Moderate adjacent inflammation with mass-effect. CThead: No hemorrhage, mass-effect, or acute stroke No leukocytosis. Blood cultures 08/28/2022 1 set of 2 (2/4) positive for [employer], suspected at the time to be contamination Repeat blood cultures negative after 24 hours. - S/p I&D per Oral Maxillofacial Surgeon 09/02 - Received 4 days of Unasyn while inpatient. D/c w/ 10 days of augmentin 875mg - f/u with DMD (2) Urinary retention: - History of neurogenic bladder and BPH - pt states he was last able to urinate on his own overnight - 740cc in bladder on bladder scan w/ 100 cc void right after - trial of voiding deemed unsuccessful today - d/c home w/ pack catheter and f/u within 1-2 weeks with urology (3) Chronic diastolic CHF (congestive heart failure): CAD with diastolic CHF Admitting EKG: Normal sinus rhythm, QTC 440, no ST segment changes TTE 04/14/2021: EF 60-65%. No regional wall motion abnormalities. Mild mitral regurg. Mild concentric LVH. Technically challenging study. Aspirin 81 mg daily Isosorbide mononitrate 30 mg every morning Losartan 100 mg every morning Continue atenolol 50 mg p.o. twice daily - Euvolemic on exam - continue home bumex (4) CKD (chronic kidney disease) stage 2, GFR 60-89 ml/min: CKD 2/2 DM1 Creatinine baseline appears approximately 1.11.3 Admitting creatinine 1.13. Slightly elevated ratio. - Renal dysfunction is from type I DM (5) Hypertension: Hypertension continue home medications (6) Diabetes mellitus type 1, uncontrolled: Type 1 diabetes mellitus Admitting BSG 184 - Home Insulin: 38u levimir AM, 46u levimir qHS, 1:4 carb ratio + SSI 2:20 over 150 Basal bolus with SSI on admission, pharmacy consulted given high requirements with infection and potential need for steroids Glucose checks AC/at bedtime, dose reduce Lantus while n.p.o. (7) Acquired blindness: Acquired Blindness - 2/2 diabetic retinopathy - 9200x laser surgery tx in retina, 44 cryotherapy in retinas for diabetic retinopathy @ age 25. - Currently blind in both eyes, can not even see light/shadows (8) History of stroke: Past CVA - 2013 CVA with subarachnoid hemorrhage. 2 older strokes noted on MRI - Went to [place] for neurosurgery. Did not have surgery, was followed with supportive care - No residual focal deficits, but does have some cognitive impairment and memory problems. (9) Hypothyroidism: Hypothyroidism Admitting TSH normal Continue Synthroid 175 mcg daily (10) Hyperlipidemia: Hyperlipidemia Continue to statin 80 mg daily, no transaminitis on admit (11) Sleep apnea: LUZMA CPAP nightly as tolerated with facial swelling (12) COPD (chronic obstructive pulmonary disease): COPD PFT 12/2020: FVC 85% predicted, FEV1 57% predicted, FEV1/FVC actual 53% predicted 67, moderate airflow obstruction without bronchodilator response stable from prior study. Albuterol as needed Continue Trelegy/formulary equivalent (13) GERD (gastroesophageal reflux disease): GERD Protonix, Pepcid daily Sucralfate 1 g p.o. twice daily (14) Elevated bilirubin: Prior Elevated bilirubin Following with GI as outpatient. - Bili normalized, no transaminitis - May use dose reduced Tylenol to 2g daily Plan Chronic daily headache Patient takes Ajovy monthly continue nortriptyline 50 mg nightly Typically headaches on the top of the head/left eye. Follows with neurology. Has failed Emgality, nortriptyline, beta-waylon, riboflavin, magnesium treatment. Topamax limited by kidney disease. - Headache improved from yesterday; likely secondary to odontogenics infection DVT prophylaxis: SCDs, heparin given while in hospital d/t history of renal dysfunction Diet: carb consistent Disposition: home w/ close f/u from uro and DMD CODE STATUS: Full code Total Time Total Time Spent Total Time Spent (In Minutes): as per attending attestation Discharge Plan Discharge Items Patient Disposition: Home - Self-Care Reason For Visit: ODONTOGENIC ABSCESS Discharge Diagnosis: odontogenic abscess, urinary retention Activity: Resume your previous activity Lifting: Gradually increase as tolerated Bathing: No limitations Exercise/Sports: Wait until after follow-up appointment Weightbearing: Full weightbearing Non-emergency contact: Surgeon Call non-emergency contact if: your temperature is above 101.5 and your wound has increased redness Follow-up/Referrals: Garrett Mao MD [Physician] - (Outpatient urology f/u within 2 weeks. Discharged with pack) Josh Squires III, CRNP [Primary Care Provider] - 09/07/22 9:20 am Jimmy Rojas DMD [Physician] - 09/07/22 3:45 pm Diet: Full liquid and Clear liquid Diet Texture: Easy to Chew Diet Comment: as tolerated Addtl Attending Provider Instructions: You were admitted to the hospital for an abscess associated with your recent root canal. You were treated with antibiotics and surgical procedure called an incision and drainage (to let the infection out of the abscess). A pack catheter has been placed because of the inability to empty your bladder fully. A discharge summary will be sent to your primary care physician to ensure continuity of care. Please bring this discharge summary with you to your next office appointment so that your provider can review it at that time. Medications: Your medication list has been reviewed and reconciled upon discharge to ensure accuracy and continuity of care. An updated list of all your medications is included with your hospital discharge paperwork. Please review this list closely and make note of any changes to your medications. - You should take your antibiotic Augmentin twice per day for 10 days (for a total of 20 pills) to help treat the dental infection. - Resume your home medications as before your hospitalization. Follow up appointments: - We have requested a follow up appointment with your primary care physician, urology, and maxillary surgeon within one to two weeks of discharge. Please call their office if you do not hear from them. - Keep all of your follow up appointments as already scheduled. If you cannot make an appointment, notify your provider. CONTACT YOUR PRIMARY CARE PROVIDER if you experience any of the following: - Fevers - Jaw/tooth pain - Difficulty following your treatment plan - Difficulty taking any of your medications CALL 911 OR GO TO THE EMERGENCY DEPARTMENT if you experience any of the following: - Inability to urinate - Sudden, severe abdominal pain or nausea/vomiting - Severe chest pain or chest pain that radiates to your jaw or arm - Sudden, severe shortness of breath or difficulty breathing Addtl Registered Account Administrator Provider Instructions: ADDITIONAL ACTIVITY RECOMMENDATIONS: * [place] teeth after every meal. It is very important to keep your mouth clean to prevent infection. * Starting tonight rinse with the Peridex as directed then 2 x a day * it is very important to keep well hydrated, this prevents fever SPECIAL CARE INSTRUCTIONS: *It is not uncommon that between day 2-4 that your swelling will be at its worst this is very normal, do not be alarmed. * Please apply heat (hot water bottle or heating pad) for the next two days, as often as possible. * Tomorrow start rinsing your mouth with 1/2 teaspoon salt in 8 ounces warm water. This rinse should be used every 4-6 hours. * You may experience slight nausea. To prevent this, never take your medication on an empty stomach. If nauseated, take small sips of becca beatriz until you feel better; then you may start on applesauce and toast. * Some swelling is common. It should gradually decrease within 4-[address] Rojas at [phone] * You may experience some discomfort for a few days. If pain or swelling increases, Call Dr Rojas * Return to the office for a follow up check up on: at 3:45 for drain removal * office address--[facility] [address]. phone # [phone] Pending Studies at Discharge: No Stand-Alone Forms: My [facility], Smoking Cessation Medications and DC Order Prescriptions: New amoxicillin-pot clavulanate 875-125 mg tablet 1 tab PO BID Qty: 20 0RF Continued nortriptyline 25 mg capsule 50 mg PO HS Qty: 180 3RF Rx Instructions: take 2 capsules by mouth at bedtime promethazine 25 mg tablet 25 mg PO Q6H PRN (Reason: nausea and vomiting) Qty: 28 5RF metoclopramide HCl [Reglan] 10 mg tablet 10 mg PO QID Qty: 120 5RF pantoprazole [Protonix] 40 mg tablet,delayed release (DR/EC) 40 mg PO BID Qty: 180 1RF amlodipine 2.5 mg tablet 2.5 mg PO QAM Qty: 90 3RF atenolol [Tenormin] 50 mg tablet 50 mg PO BID Qty: 180 1RF levothyroxine 175 mcg tablet 175 mcg PO QAM Qty: 90 1RF atorvastatin 80 mg tablet 80 mg PO QPM Qty: 90 1RF albuterol sulfate 90 mcg/actuation HFA aerosol inhaler 2 puff inhalation QID PRN (Reason: Shortness Of Breath Or Wheezing) Qty: 8.5 2RF Rx Instructions: inhale 2 puffs by mouth four times a day if needed for shortness of breath or wheezing folic acid 1 mg tablet 1 mg PO BID Qty: 180 3RF (DME) BiPap Machine Misc .Route Qty: 1 0RF Rx Instructions: Needs new machine per [employer]. hydrocodone-homatropine 5-1.5 mg tablet 1 tab PO BID PRN (Reason: cough) Qty: 60 0RF losartan 100 mg tablet 100 mg PO QAM Qty: 90 3RF tamsulosin [Flomax] 0.4 mg capsule 0.4 mg PO QPM Qty: 90 3RF oxycodone-acetaminophen [Percocet] 5-325 mg tablet 1 - 2 tab PO DAILY PRN (Reason: Pain) Qty: 60 0RF bumetanide 1 mg tablet 2 mg PO DAILY Qty: 360 3RF diazepam [Valium] 2 mg tablet 2 mg PO HS PRN (Reason: Anxiety) Qty: 30 1RF levalbuterol HCl 0.63 mg/3 mL solution for nebulization 0.63 mg inhalation Q6H PRN (Reason: shortness of breath or wheezing) Qty: 360 5RF sucralfate [Carafate] 1 gram tablet 1 g PO BID Qty: 60 2RF Rx Instructions: Crush and mix with 15 mL of water Fiasp FlexTouch U-100 Insulin 100 unit/mL (3 mL) insulin pen 0 sliding scale dose subcut .AC & SNACKS Rx Instructions: 1-4 CARBS IS 1 UNIT subcut daily; SLIDING SCALE; FOR EVERY 20 CARBS, ADD ANOTHER 1 UNIT OF INSULIN 2 EXTRA 2 UNITS FOR 150-170 CARBS AND IF OVER 150, ADD 2 UNITS FOR EVERY 20 POINTS OVER FOR HIS BLOOD SUGAR aspirin 81 mg tablet,delayed release (DR/EC) 81 mg PO QAM ferrous sulfate 325 mg (65 mg iron) tablet 325 mg PO BID Levemir FlexTouch U-100 Insuln 100 unit/mL (3 mL) insulin pen 0 unit subcut BID Rx Instructions: TAKES 36 UNITS QAM, THEN 42 UNITS QPM. flaxseed oil Oil 1 ea miscellaneous TID Rx Instructions: DOSE 1,200 MG TID glucosamine sulfate [Glucosamine] 500 mg Tablet 500 mg PO QAM famotidine 10 mg Tablet 10 mg PO BID Rx Instructions: TAKES AM & LUNCH acetaminophen [Tylenol] 325 mg Capsule 325 mg PO Q6H PRN (Reason: Pain) Probiotic 3 billion cell Capsule 3,000 mmu cells PO QAM magnesium 200 mg tablet 400 mg PO QAM fexofenadine [Manuela Allergy] 180 mg Tablet 180 mg PO QAM riboflavin (vitamin B2) 25 mg Tablet 25 mg PO ACHS sodium chloride 1 gram Tablet 1,000 mg PO BID Trelegy Ellipta 100-62.5-25 mcg blister with device 1 inh INHALATION QAM Senecot 125 mg PO BID isosorbide mononitrate 30 mg tablet extended release 24 hr 30 mg PO QAM Rx Instructions: take 1 tablet by mouth every morning Ajovy Syringe 225 mg/1.5 mL syringe 0 mg SUBCUT DIRECTED Discontinued amoxicillin-pot clavulanate 875-125 mg tablet 1 tab PO Q12H Qty: 20 0RF penicillin V potassium 500 mg tablet 500 mg PO Q6H Rx Instructions: STARTED 08/28/22 FOR 7 DAYS Discharge Orders: Discharge Order (Routine); Ordered 09/04/22 Ordered By: Merissa Galdamez/Other Patient Handouts: Managing Type 1 Diabetes, ED Dental Abscess Admission Data Admit Date/Time: 09/01/22 11:33 Attending Provider: Leeann Guzman Admit Provider: Se Abdalla Primary Care Provider: Josh Squires III Other Providers: Se Abdalla ; Jimmy Rojas ; Adonay Ventura Other Interventions: Discharge Summary Assessment (RN) Last Done: 09/04/22 15:41
[2022-09-04] MEDS ORDERED: LANTUS PER UNIT CHARGE SQ SCH (21:00)
[2022-09-05] MEDS ORDERED: INSULIN ASPART PER UNIT SC SCH (07:30)
== END 2022-09-04 16:21 | disposition home or self-care (01) | DRG 137 ==
LOC: ED 08:17 → SUATTDRO 11:33 → 2S 11:33 → INTOOBSV 11:33 → 2S 16:09 → 3W 09-03 18:33

== ENCOUNTER 2022-09-11 05:08 | Inpatient (IN) ==
[2022-09-11] MEDS ORDERED: ALBUT/IPRATROP 3MG/0.5MG NEB 3 ML VIAL NEB STA ×3 (05:41→09:58)
[2022-09-11 06:00] LABS: Basophils # (auto) 0.04 K/uL (0-0.2); Basophils % (auto) 0.7 %; Eosinophils # (auto) 0.09 K/uL (0-0.50); Eosinophils % (auto) 1.7 %; Hematocrit (blood only) 30.8 % (40.1-51.0); Hemoglobin 10.4 g/dl (14.0-18.0); Immature Granulocytes # (auto) 0.02 K/uL (0.00-0.02); Immature Granulocytes % (auto) 0.4 %; Lymphocytes # (auto) 1.31 K/uL (1.2-3.4); Lymphocytes % (auto) 24.3 %; Mean Corpuscular Hgb Conc 33.8 g/dL (32.0-36.0); Mean Corpuscular Volume 94.8 fL (80.0-100.0); Mean Platelet Volume 9.9 fL (9.4-12.4); Monocytes # (auto) 0.44 K/uL (0.24-0.82); Monocytes % (auto) 8.2 %; Neutrophils # (auto) 3.48 K/uL (1.4-6.5); Neutrophils % (auto) 64.7 %; Platelet Count 456 K/uL (130-400); RDW Coefficient of Variation 13.8 % (11.5-14.5); RDW Standard Deviation 46.3 fL (36.4-46.3); Red Blood Count 3.25 M/uL (4.63-6.08); White Blood Count 5.38 K/ul (4.8-10.8)
[2022-09-11] MEDS: SODIUM CHLORIDE 0.9% 1000ML 1,000 ML IV SCH ×2 (06:08→19:00)
[2022-09-11 06:16] LABS: Albumin Level 3.9 gm/dl (3.4-5.0); BUN Creatinine Ratio 15.2 (10-20); Bilirubin,Total 0.4 mg/dl (0.2-1.0); Calcium 8.9 mg/dl (8.5-10.1); Creatinine Clr Calc Pharmacy 93.6 ml/min; Est GFR (African American) 102.2 ml/min; Est GFR (Non-African American) 88.2 ml/min; Globulin 3.8 gm/dl (2.5-4.0); Magnesium 1.9 mg/dl (1.7-2.4); Total Protein 7.7 gm/dl (6.0-8.3)
[2022-09-11 06:22] LABS: Troponin I High Sensitivity 14.3 pg/ml (0-20)
[2022-09-11] MEDS ORDERED: OPTIRAY 320 500ml IV ONE (06:35)
--- NOTE | 2022-09-11 06:47 | Emergency Department Note ---
History of Present Illness General Chief complaint: Shortness of Breath/Dyspnea Time Seen by Provider: 09/11/22 05:29 Source: patient and EMS Mode of arrival: EMS Limitations: no limitations History of Present Illness Provider complaint: Increased shortness of breath This is a 62-year-old male presents emergency department due to increased shortness of breath and worsening cough. Patient was recently admitted for infection related to a dental procedure and was discharged home on Sunday of last week. Patient does have a history of COPD and does use nebulizer treatments at home, no home oxygen. He states he felt his breathing was getting worse over the course of the week, worse in the last few days, and he had minimal improvement with use of nebulizer treatments. Patient noticed breathing was worse with exertion. He denies any accompanying pain, nausea or vomiting. He states he does have a significant cough and feels it is difficult to expectorate this. Patient is concerned is since a prior stroke he has had difficulty with dysphagia and aspiration pneumonia. He denies vomiting or diarrhea, fevers or chills. Patient was noted to be hypoxic by nursing staff on arrival and was placed on oxygen via nasal cannula. Home Medications Medication Instructions Recorded Confirmed Type acetaminophen 325 mg capsule 325 mg PO Q6H PRN Pain 08/06/18 09/11/22 History (Tylenol) lactobacillus combination no.4 3 3,000 mmu cells PO QAM 08/06/18 09/11/22 History billion cell capsule (Probiotic) aspirin 81 mg tablet,delayed 81 mg PO QAM 06/09/19 09/11/22 History release magnesium 200 mg tablet 400 mg PO QAM 06/09/19 09/11/22 History flaxseed oil 1 ea miscellaneous TID 07/05/19 09/11/22 History glucosamine sulfate 500 mg tablet 500 mg PO QAM 07/05/19 09/11/22 History (Glucosamine) famotidine 10 mg tablet 10 mg PO BID 05/14/20 09/11/22 History levalbuterol HCl 0.63 mg/3 mL 0.63 mg (3 mL) inhalation Q6H PRN 06/08/20 09/11/22 Rx solution for nebulization shortness of breath or wheezing #360 mL insulin aspart 0 sliding scale dose subcut .AC & 12/02/20 09/11/22 History (niacinamide)(U-100) 100 unit/mL(3 SNACKS mL) subcutaneous pen (Fiasp FlexTouch U-100 Insulin) ferrous sulfate 325 mg (65 mg 325 mg PO BID 03/25/21 09/11/22 History iron) tablet nortriptyline 25 mg capsule 50 mg PO HS #180 caps 12/13/21 09/11/22 Rx promethazine 25 mg tablet 25 mg PO Q6H PRN nausea and 01/04/22 09/11/22 Rx vomiting #28 tabs metoclopramide HCl 10 mg tablet 10 mg PO QID #120 tabs 04/11/22 09/11/22 Rx (Reglan) insulin detemir U-100 100 unit/mL 0 unit subcut BID 05/03/22 09/11/22 History (3 mL) subcutaneous pen (Levemir FlexTouch U-100 Insulin) amlodipine 2.5 mg tablet 2.5 mg PO QAM #90 tabs 05/29/22 09/11/22 Rx pantoprazole 40 mg tablet,delayed 40 mg PO BID #180 tabs 05/29/22 09/11/22 Rx release (Protonix) atenolol 50 mg tablet (Tenormin) 50 mg PO BID #180 tabs 06/12/22 09/11/22 Rx levothyroxine 175 mcg tablet 175 mcg PO QAM #90 tabs 06/12/22 09/11/22 Rx folic acid 1 mg tablet 1 mg PO BID #180 tabs 06/27/22 09/11/22 Rx BiPap Machine #1 ea 07/14/22 09/07/22 Rx hydrocodone-homatropine 5 mg-1.5 1 tab PO BID PRN cough #60 tabs 07/20/22 09/11/22 Rx mg tablet losartan 100 mg tablet 100 mg PO QAM #90 tabs 08/08/22 09/11/22 Rx tamsulosin 0.4 mg capsule (Flomax) 0.4 mg PO QPM #90 caps 08/18/22 09/11/22 Rx Senecot 125 mg PO BID 08/28/22 09/11/22 History fexofenadine 180 mg tablet 180 mg PO QAM 08/28/22 09/11/22 History ([facility] Allergy) fluticasone fur. 100 mcg-umeclid 1 inh inhalation QAM 08/28/22 09/11/22 History 62.5 mcg-vilant 25 mcg inhalat.powder (Trelegy Ellipta) fremanezumab-vfrm 225 mg/1.5 mL 0 mg subcut DIRECTED 08/28/22 09/11/22 History subcutaneous syringe (Ajovy Syringe) isosorbide mononitrate 30 mg 30 mg PO QAM 08/28/22 09/11/22 History tablet,extended release 24 hr riboflavin (vitamin B2) 25 mg 25 mg PO ACHS 08/28/22 09/11/22 History tablet sodium chloride 1 gram tablet 1,000 mg PO BID 08/28/22 09/11/22 History sucralfate 1 gram tablet (Carafate) 1 g PO BID #60 tabs 08/29/22 09/11/22 Rx amoxicillin 875 mg-potassium 1 tab PO BID #20 tabs 09/04/22 09/11/22 Rx clavulanate 125 mg tablet ondansetron 8 mg disintegrating 8 mg PO Q8H PRN nausea and 09/07/22 09/11/22 Rx tablet vomiting #60 tabs oxycodone-acetaminophen 5 mg-325 1 tab PO QID PRN Pain 30 days #90 09/07/22 09/11/22 Rx mg tablet (Percocet) tabs albuterol sulfate 90 mcg/actuation 2 puff inhalation Q4H PRN 09/11/22 09/11/22 History aerosol inhaler Shortness Of Breath atorvastatin 80 mg tablet 80 mg PO HS 09/11/22 09/11/22 History bumetanide 1 mg tablet 1 mg PO BID 09/11/22 09/11/22 History galcanezumab-gnlm 120 mg/mL 0 mg subcut MONTHLY 09/11/22 09/11/22 History subcutaneous pen injector (Emgality Pen) Allergies Allergy/AdvReac Type Severity Reaction Status Date / Time lisinopril Allergy Severe " TONGUE Verified 09/11/22 08:40 SWELLS"--ANGIOEDEMA lorazepam AdvReac Intermediate Hallucinati Verified 09/11/22 08:40 ons Past Med/Surg History Medical History Abnormal CT scan of lung Acute kidney injury Angioedema Asthma uses PRN inh daily 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 BPH (benign prostatic hyperplasia) CAD (coronary artery disease), gambell coronary artery Chronic diastolic CHF (congestive heart failure) pt unable to verify Chronic headache Chronic hyponatremia COPD (chronic obstructive pulmonary disease) DM type 1 (diabetes mellitus, type 1) Family history of colon cancer GERD (gastroesophageal reflux disease) History of angiography History of stroke History of subarachnoid hemorrhage 2013; memory/cognitive deficits (reports total of 3 strokes but only known event was in 2013 -- remaining strokes were incidental findings) Hyperkalemia Hyperlipidemia Hypertension Hypothyroidism Ischemic colitis Over 10 years ago (before 2007) Microcytic anemia Migraine LUZMA (obstructive sleep apnea) bipap PAD (peripheral artery disease) Premature ventricular beats Sepsis hx of Urinary retention Surgical History Difficult airway for intubation reports he was told he was a difficult intubation after rectal abscess surgery at [facility] [place]. says he has been intubated since then without issues; denies problems prior to that procedure, as well. H/O colonoscopy last 2019 History of appendectomy History of esophagogastroduodenoscopy (EGD) History of eye surgery multiple History of hand surgery Hand Incision Tendon Sheath of a Finger History of rectal abscess I&D History of tonsillectomy and adenoidectomy History of transurethral resection of prostate History of vasectomy History of ventral hernia repair Family History Mother Hypertension Grandfather (Paternal) Colon cancer Prostate cancer Brother Brain cancer Diabetes Bone cancer Kidney disease Lung cancer Son Diabetes Lung cancer Father Hemorrhagic stroke Hypertension Other Breast cancer No family history of adverse response to anesthesia Testicular cancer Denies family history of Ovarian cancer Myocardial infarction Social History Smoking Status: Former smoker Tobacco Type: Cigarettes Age Started Using Tobacco: 16; Age Quit Using Tobacco: 49; packs per day: 1.5; Second Hand Exposure: No; Do You Dip or Chew Tobacco: No; Tobacco Cessation Education Requested by Patient: No Hx Alcohol Use: No Hx Substance Use: No Preferred Language: Danish Communication Ability: Effective Visual Impairment: No Limitations Hearing Ability: Hard of Hearing Tank Riveter Required: No Beliefs That Will Affect Care: None marital status: Current Living Situation: Spouse current occupational status: disabled How many Children do You have: 1 Other Information That Helps Us Care for You: No Feels Safe at Home: Yes Safety Concerns: Feels Safe At This Time Childhood Exposure to Second-Hand Smoke: Yes Diet Comment: regular Dental Care, Regularly: Yes Physical Activity Frequency: Does not Exercise Seatbelt Use: always Sunscreen Use: Yes Assistive Devices: BiPap and Cane Review of Systems A total of 10 systems reviewed and were otherwise negative All systems reviewed & are unremarkable except as noted in HPI & below Physical Exam Vital Signs Vital Signs - 24 hr 09/11/22 05:12 09/11/22 05:12 09/11/22 05:31 Temperature 36.7 C Temperature Source Oral Pulse Rate 79 72 Pulse Rate [Apical] Pulse Rate from SpO2 Sensor 72 Respiratory Rate 24 19 Respiratory Effort / Characteristics Respiratory Depth Blood Pressure 181/77 H 154/73 H Blood Pressure [Left Arm] Blood Pressure Mean 111 100 Blood Pressure Mean [Left Arm] Pulse Oximetry 88 L 87 L 94 Oxygen Delivery Method Room Air Room Air Oxygen Flow Rate 0 Sepsis Recent Fever Within 48 Hours Yes Sepsis New/Unexplained Change in Mental Status N/A Sepsis Action Taken by Nursing No Action Required Oxygen Flow Rate - Titration 3 Pulse Oximetry Post Tiitration 90 09/11/22 06:09 09/11/22 07:15 Temperature Temperature Source Pulse Rate 68 Pulse Rate [Apical] 69 Pulse Rate from SpO2 Sensor 68 Respiratory Rate 17 18 Respiratory Effort / Characteristics Non-Labored Respiratory Depth Normal Blood Pressure 171/73 H Blood Pressure [Left Arm] 177/66 H Blood Pressure Mean 105 Blood Pressure Mean [Left Arm] 103 Pulse Oximetry 94 95 Oxygen Delivery Method Nasal Cannula Oxygen Flow Rate Sepsis Recent Fever Within 48 Hours Sepsis New/Unexplained Change in Mental Status Sepsis Action Taken by Nursing Oxygen Flow Rate - Titration Pulse Oximetry Post Tiitration GENERAL: alert, well appearing, well nourished, no distress, non-toxic EYE EXAM: normal conjunctiva, PERRL and EOM's grossly intact OROPHARYNX: no exudate, no erythema, lips, buccal mucosa, and tongue normal and mucous membranes are moist NECK: supple, no nuchal rigidity, no adenopathy, non-tender LUNGS: Clear to auscultation. Normal chest wall mechanics, no w/r/r, decreased breath sounds at the right base HEART: no murmurs, S1 normal and S2 normal ABDOMEN: abdomen soft, non-tender, normo-active bowel sounds, no masses, no rebound or guarding. BACK: Back is symmetrical on inspection and there is no deformity, no midline tenderness, no CVA tenderness. SKIN: no rashes and no bruising UPPER EXTREMITIES: upper extremities are grossly normal. FROM, nml pulses b/l. LOWER EXTREMITIES: No pitting edema. FROM, nml pulses b/l. NEURO EXAM: Normal sensorium, cranial nerves II-XII grossly intact, normal speech, no gross weakness of arms, no gross weakness of legs. Gross sensation intact. Course Administered Medications Acetaminophen (Acetaminophen 325 Mg Tab) 650 mg PO Q4H PRN PRN Reason: Pain or Fever Stop: 10/11/22 10:53 Last Admin: 09/12/22 15:58 Dose: 650 mg Documented By: JOSELYN Amlodipine Besylate (Amlodipine Besylate 5 Mg Tab) 2.5 mg PO [facility] Stop: 10/11/22 11:29 Last Admin: 09/12/22 08:36 Dose: 2.5 mg Documented By: Admin: 09/11/22 11:54 Dose: 2.5 mg Documented By: NEREYDA Amoxicillin/Clavulanate Potassium (Amoxicillin/Clavulanate 875 Mg Tab) [facility] [place] Stop: 09/15/22 17:01 Last Admin: 09/12/22 16:59 Dose: 1 tab Documented By: Admin: 09/12/22 08:37 Dose: 1 tab Documented By: Admin: 09/11/22 16:35 Dose: 1 tab Documented By: Admin: 09/11/22 11:54 Dose: 1 tab Documented By: NEREYDA Aspirin (Aspirin 81 Mg Ectab) 81 [facility] [place] Stop: 10/11/22 11:29 Last Admin: 09/12/22 08:37 Dose: 81 mg Documented By: Admin: 09/11/22 11:54 Dose: 81 mg Documented By: NEREYDA Atenolol (Atenolol 50 Mg Tablet) 50 mg PO BID [facility] Stop: 10/11/22 10:53 Last Admin: 09/12/22 08:38 Dose: 50 mg Documented By: Admin: 09/11/22 21:29 Dose: 50 mg Documented By: Admin: 09/11/22 12:35 Dose: 50 mg Documented By: NEREYDA Atorvastatin Calcium (Atorvastatin 40 Mg Tab) 80 mg PO HS [facility] Stop: 10/11/22 20:59 Last Admin: 09/11/22 21:29 Dose: 80 mg Documented By: ED Bumetanide (Bumetanide 1 Mg Tab) 1 mg PO BID17 [facility] Stop: 10/11/22 10:53 Last Admin: 09/12/22 16:58 Dose: 1 mg Documented By: Admin: 09/12/22 08:36 Dose: 1 mg Documented By: Admin: 09/11/22 16:35 Dose: 1 mg Documented By: Admin: 09/11/22 12:35 Dose: 1 mg Documented By: NEREYDA Docusate Sodium (Docusate Sodium 100 Mg Cap) 100 mg PO BID [facility] Stop: 10/11/22 10:53 Last Admin: 09/12/22 08:38 Dose: 100 mg Documented By: Admin: 09/11/22 21:28 Dose: 100 mg Documented By: Admin: 09/11/22 12:33 Dose: 100 mg Documented By: NEREYDA Enoxaparin Sodium (Enoxaparin Inj 40 Mg/0.4 Ml Syr) 40 mg SQ DAILY [facility] Stop: 10/11/22 11:59 Last Admin: 09/12/22 08:39 Dose: 40 mg Documented By: Admin: 09/11/22 12:36 Dose: 40 mg Documented By: NEREYDA Famotidine (Famotidine 10 Mg Tablet) 10 mg PO BID@0800,1230 [facility] Stop: 10/11/22 12:29 Last Admin: 09/12/22 12:15 Dose: 10 mg Documented By: Admin: 09/12/22 08:37 Dose: 10 mg Documented By: Admin: 09/11/22 12:34 Dose: 10 mg Documented By: NEREYDA Ferrous Sulfate (Ferrous Sulfate 325 Mg Tab) 325 mg PO BIDM [facility] Stop: 10/11/22 10:53 Last Admin: 09/12/22 16:59 Dose: 325 mg Documented By: Admin: 09/12/22 08:36 Dose: 325 mg Documented By: Admin: 09/11/22 16:35 Dose: 325 mg Documented By: Admin: 09/11/22 12:36 Dose: 325 mg Documented By: NEREYDA Fluticasone Furoate (Fluticasone Furoate 100mcg 14 Puffs/Inhaler) 1 puffs INH DAILY [facility] Stop: 10/11/22 12:29 Last Admin: 09/12/22 08:39 Dose: 1 puffs Documented By: Admin: 09/11/22 12:55 Dose: 1 puffs Documented By: NEREYDA Folic Acid (Folic Acid 1 Mg Tab) 1 mg PO BID [facility] Stop: 10/11/22 10:53 Last Admin: 09/12/22 08:38 Dose: 1 mg Documented By: Admin: 09/11/22 21:28 Dose: 1 mg Documented By: Admin: 09/11/22 12:36 Dose: 1 mg Documented By: NEREYDA Guaifenesin (Guaifenesin 600 Mg Tabcr) 1,200 mg PO Q12 [facility] Stop: 10/11/22 11:59 Last Admin: 09/12/22 08:38 Dose: 1,200 mg Documented By: Admin: 09/11/22 12:34 Dose: 1,200 mg Documented By: NEREYDA Insulin Aspart (Insulin Aspart Per Unit) 0 units SC ACHS [facility] Stop: 10/11/22 11:30 Last Admin: 09/12/22 16:57 Dose: Not Given Documented By: Admin: 09/12/22 12:14 Dose: 28 units Documented By: JOSELYN Co-signed By: Admin: 09/12/22 08:31 Dose: 29 units Documented By: JOSELYN Co-signed By: Admin: 09/11/22 21:30 Dose: Not Given Documented By: ED Co-signed By: OLY Admin: 09/11/22 16:43 Dose: 22 units Documented By: NEREYDA Co-signed By: [id number] Admin: 09/11/22 11:49 Dose: 24 units Documented By: NEREYDA Co-signed By: [id number] Insulin Glargine (Lantus Per Unit Charge) 35 units SQ DAILY [facility] Stop: 10/12/22 08:59 Last Admin: 09/12/22 08:33 Dose: 35 units Documented By: JOSELYN Co-signed By: MG Isosorbide Mononitrate (Isosorbide Early Extended Rel 30 Mg Tabcr) 30 mg PO QAM [facility] Stop: 10/11/22 10:53 Last Admin: 09/12/22 08:37 Dose: 30 mg Documented By: Admin: 09/11/22 12:34 Dose: 30 mg Documented By: NEREYDA Lactobacillus Acidophilus (Advanced Probiotic 1250 Mg Capsule) 2 cap PO DAILY [facility] Stop: 10/11/22 12:29 Last Admin: 09/12/22 08:36 Dose: 2 cap Documented By: Admin: 09/11/22 12:55 Dose: 2 cap Documented By: NEREYDA Levothyroxine Sodium (Levothyroxine Sodium 175 Mcg Tablet) 175 mcg PO DAILYBB [facility] Stop: 10/12/22 06:29 Last Admin: 09/12/22 05:42 Dose: 175 mcg Documented By: ED Losartan Potassium (Losartan Potassium 50 Mg Tab) 100 mg PO QAM [facility] Stop: 10/11/22 10:53 Last Admin: 09/12/22 08:37 Dose: 100 mg Documented By: Admin: 09/11/22 12:36 Dose: 100 mg Documented By: NEREYDA Magnesium Oxide (Magnesium Oxide 400 Mg Tab) 400 [facility] [place] Stop: 10/11/22 10:53 Last Admin: 09/12/22 08:37 Dose: 400 mg Documented By: Admin: 09/11/22 12:44 Dose: 400 mg Documented By: NEREYDA Metoclopramide HCl (Metoclopramide Hcl 10 Mg Tablet) 10 mg PO QID [facility] Stop: 10/11/22 12:59 Last Admin: 09/12/22 17:00 Dose: 10 mg Documented By: Admin: 09/12/22 12:15 Dose: 10 mg Documented By: Admin: 09/12/22 08:38 Dose: 10 mg Documented By: Admin: 09/11/22 21:27 Dose: 10 mg Documented By: Admin: 09/11/22 16:35 Dose: 10 mg Documented By: Admin: 09/11/22 12:35 Dose: 10 mg Documented By: NEREYDA Nortriptyline HCl (Nortriptyline Hcl 25 Mg Cap) 50 mg PO HS [facility] Stop: 10/11/22 20:59 Last Admin: 09/11/22 21:28 Dose: 50 mg Documented By: ED Ondansetron HCl (Ondansetron Inj 2 Mg/Ml 2 Ml Vial) 4 mg IV Q6H PRN PRN Reason: Nausea Stop: 10/11/22 10:53 Last Admin: 09/11/22 12:21 Dose: 4 mg Documented By: NEREYDA Oxycodone/Acetaminophen (Oxycodone/Acetaminophen 5mg/325mg Tab) 1 tab PO QID PRN PRN Reason: Pain Stop: 09/25/22 10:53 Last Admin: 09/12/22 13:36 Dose: 1 tab Documented By: Admin: 09/12/22 07:36 Dose: 1 tab Documented By: Admin: 09/11/22 18:26 Dose: 1 tab Documented By: Admin: 09/11/22 12:21 Dose: 1 tab Documented By: NEREYDA Pantoprazole Sodium (Pantoprazole 40 Mg Tab) 40 mg PO BID [facility] Stop: 10/11/22 10:53 Last Admin: 09/12/22 08:38 Dose: 40 mg Documented By: Admin: 09/11/22 21:28 Dose: 40 mg Documented By: Admin: 09/11/22 12:35 Dose: 40 mg Documented By: NEREYDA Polyethylene Glycol (Polyethylene (Miralax) 17 Gm Pack) 17 gm PO DAILY PRN PRN Reason: Constipation Stop: 10/11/22 10:53 Last Admin: 09/12/22 12:15 Dose: 17 gm Documented By: JOSELYN Sennosides (Senna 8.6 Mg Tab) 8.6 mg PO BID [facility] Stop: 10/11/22 12:59 Last Admin: 09/12/22 08:38 Dose: 8.6 mg Documented By: Admin: 09/11/22 21:27 Dose: 8.6 mg Documented By: Admin: 09/11/22 13:13 Dose: 8.6 mg Documented By: NEREYDA Sodium Chloride (Sodium Chlor 7% 4 Ml Neb) 4 ml NEB BIDR [facility] Stop: 10/11/22 18:59 Last Admin: 09/12/22 07:05 Dose: 4 ml Documented By: Admin: 09/11/22 19:37 Dose: 4 ml Documented By: NANO Sodium Chloride (Sodium Chloride 1 Gm Tablet) 1 gm PO BID [facility] Stop: 10/11/22 10:59 Last Admin: 09/12/22 08:38 Dose: 1 gm Documented By: Admin: 09/11/22 21:27 Dose: 1 gm Documented By: Admin: 09/11/22 12:33 Dose: 1 gm Documented By: NEREYDA Sucralfate (Sucralfate 1 Gm Tab) 1 gm PO BID [facility] Stop: 10/11/22 10:53 Last Admin: 09/12/22 08:38 Dose: 1 gm Documented By: Admin: 09/11/22 21:27 Dose: 1 gm Documented By: Admin: 09/11/22 12:33 Dose: 1 gm Documented By: NEREYDA Tamsulosin HCl (Tamsulosin Hcl 0.4 Mg Cap) 0.4 mg PO QPM [facility] Stop: 10/11/22 20:59 Last Admin: 09/11/22 21:26 Dose: 0.4 mg Documented By: ED Umeclidinium/Vilanterol (Umeclidinium/Vilanterol 62.5/25mcg 7 Puffs/Inhaler) 1 puffs INH DAILY [facility] Stop: 10/11/22 12:29 Last Admin: 09/12/22 08:39 Dose: 1 puffs Documented By: Admin: 09/11/22 12:55 Dose: 1 puffs Documented By: NREEYDA Discontinued Medications Albuterol (Albut/Ipratrop 3mg/0.5mg Neb 3 Ml Vial) 3 ml NEB NOW STA; Protocol Stop: 09/11/22 05:42 Last Admin: 09/11/22 06:08 Dose: 3 ml Documented By: KALYN Albuterol (Albut/Ipratrop 3mg/0.5mg Neb 3 Ml Vial) 3 ml NEB NOW STA; Protocol Stop: 09/11/22 07:36 Last Admin: 09/11/22 07:50 Dose: 3 ml Documented By: ARELIS Albuterol (Albut/Ipratrop 3mg/0.5mg Neb 3 Ml Vial) 3 ml NEB NOW STA; Protocol Stop: 09/11/22 09:59 Last Admin: 09/11/22 10:06 Dose: 3 ml Documented By: JOSELYN(2) Albuterol (Albut/Ipratrop 3mg/0.5mg Neb 3 Ml Vial) 3 ml NEB Q4R [facility]; Protocol Stop: 09/12/22 07:01 Last Admin: 09/12/22 07:05 Dose: 3 ml Documented By: Admin: 09/12/22 03:01 Dose: 3 ml Documented By: Admin: 09/11/22 23:09 Dose: 3 ml Documented By: Admin: 09/11/22 19:37 Dose: 3 ml Documented By: Admin: 09/11/22 15:37 Dose: 3 ml Documented By: Admin: 09/11/22 11:24 Dose: 3 ml Documented By: FORREST Guaifenesin (Guaifenesin 600 Mg Tabcr) 600 mg PO NOW STA Stop: 09/11/22 07:36 Last Admin: 09/11/22 07:50 Dose: 600 mg Documented By: ARELIS Sodium Chloride (Nss 1000ml) 1,000 mls @ 125 mls/hr IV .Q8H [facility] Stop: 10/11/22 05:44 Last Admin: 09/11/22 19:00 Dose: Not Given Documented By: Infusion: 09/11/22 14:11 Dose: 0 mls/hr Documented By: Admin: 09/11/22 06:08 Dose: 125 mls/hr Documented By: KALYN Piperacillin Sod/Tazobactam Sod (Zosyn) 4.5 gm in 120 mls @ 240 mls/hr IV NOW ONE Stop: 09/11/22 08:28 Last Infusion: 09/11/22 09:06 Dose: 0 mls/hr Documented By: JOSELYN(2) Admin: 09/11/22 08:12 Dose: 240 mls/hr Documented By: JOSELYN(2) Insulin Glargine (Lantus Per Unit Charge) 35 units SQ ONE ONE Stop: 09/11/22 11:31 Last Admin: 09/11/22 11:48 Dose: 35 units Documented By: NEREYDA Co-signed By: [id number] Insulin Glargine (Lantus Per Unit Charge) 0 units SQ [facility]; Protocol Stop: 09/11/22 21:01 Last Admin: 09/11/22 21:30 Dose: Not Given Documented By: AZUL Insulin Glargine (Lantus Per Unit Charge) 25 units SQ ONE ONE Stop: 09/12/22 11:46 Last Admin: 09/12/22 12:14 Dose: 25 units Documented By: JOSELYN Co-signed By: MG Ioversol (Optiray 320 500ml) 125 ml IV ONCE ONE Stop: 09/11/22 06:36 Last Admin: 09/11/22 06:35 Dose: 114 ml Documented By: FELY Medical Decision Making Differential Diagnosis Differential diagnoses includes but is not limited to pneumonia, bronchitis, COPD/Asthma exacerbation, pneumothorax, pulmonary embolism, congestive heart failure, acute coronary syndrome Medical Records Attestation: I reviewed the patient's medical records. Home Medications Current Medication List: was personally reviewed by me Laboratory Data Attestation: I reviewed the patient's lab results. Result diagrams: 09/12/22 08:19 09/12/22 08:19 Lab Results 09/11/22 09/11/22 09/11/22 Range/Units 05:15 05:15 05:15 WBC 5.38 (4.8-10.8) K/ul RBC 3.25 L (4.63-6.08) M/uL Hgb 10.4 L (14.0-18.0) g/dl Hct 30.8 L (40.1-51.0) % MCV 94.8 (80.0-100.0) fL MCH 32.0 (25.0-34.0) pg MCHC 33.8 (32.0-36.0) g/dL RDW Std Deviation 46.3 (36.4-46.3) fL RDW Coeff of Analisa 13.8 (11.5-14.5) % Plt Count 456 H (130-400) K/uL MPV 9.9 (9.4-12.4) fL Immature Gran % (Auto) 0.4 % Neut % (Auto) 64.7 % Lymph % (Auto) 24.3 % Early % (Auto) 8.2 % Eos % (Auto) 1.7 % Baso % (Auto) 0.7 % Neut # (Auto) 3.48 (1.4-6.5) K/uL Lymph # (Auto) 1.31 (1.2-3.4) K/uL Early # (Auto) 0.44 (0.24-0.82) K/uL Eos # (Auto) 0.09 (0-0.50) K/uL Baso # (Auto) 0.04 (0-0.2) K/uL Immature Gran # (Auto) 0.02 (0.00-0.02) K/uL Sodium 133 L (136-145) mmol/L Potassium 4.0 (3.5-5.1) mmol/L Chloride 96 L (98-107) mmol/L Carbon Dioxide 28 (21-32) mmol/L Anion Gap 9 (3-11) BUN 14 (6-23) mg/dl Creatinine 0.92 (0.6-1.4) mg/dl Est Cr Clr Drug Dosing 93.6 ml/min Est GFR ( Amer) 102.2 ml/min Est GFR (Non-Af Amer) 88.2 ml/min BUN/Creatinine Ratio 15.2 (10-20) Glucose 218 H (70-99(Fasting)) mg/dl Lactate (0.4-2.0) mmol/L Calcium 8.9 (8.5-10.1) mg/dl Magnesium 1.9 (1.7-2.4) mg/dl Total Bilirubin 0.4 (0.2-1.0) mg/dl AST 22 (13-39) U/L ALT 24 (7-52) U/L Alkaline Phosphatase 115 H (34-104) U/L Troponin I High Sens 14.3 (0-20) pg/ml Total Protein 7.7 (6.0-8.3) gm/dl Albumin 3.9 (3.4-5.0) gm/dl Globulin 3.8 (2.5-4.0) gm/dl Albumin/Globulin Ratio 1.0 (0.9-2) Procalcitonin 0.10 (0-0.5) ng/ml SARS-CoV-2 (PCR) (Negative) Influenza Type A (PCR) (Neg) Influenza Type B (PCR) (Neg) RSV (RT-PCR) (Neg) 09/11/22 09/11/22 Range/Units 06:13 06:13 WBC (4.8-10.8) K/ul RBC (4.63-6.08) M/uL Hgb (14.0-18.0) g/dl Hct (40.1-51.0) % MCV (80.0-100.0) fL MCH (25.0-34.0) pg MCHC (32.0-36.0) g/dL RDW Std Deviation (36.4-46.3) fL RDW Coeff of Analisa (11.5-14.5) % Plt Count (130-400) K/uL MPV (9.4-12.4) fL Immature Gran % (Auto) % Neut % (Auto) % Lymph % (Auto) % Early % (Auto) % Eos % (Auto) % Baso % (Auto) % Neut # (Auto) (1.4-6.5) K/uL Lymph # (Auto) (1.2-3.4) K/uL Early # (Auto) (0.24-0.82) K/uL Eos # (Auto) (0-0.50) K/uL Baso # (Auto) (0-0.2) K/uL Immature Gran # (Auto) (0.00-0.02) K/uL Sodium (136-145) mmol/L Potassium (3.5-5.1) mmol/L Chloride (98-107) mmol/L Carbon Dioxide (21-32) mmol/L Anion Gap (3-11) BUN (6-23) mg/dl Creatinine (0.6-1.4) mg/dl Est Cr Clr Drug Dosing ml/min Est GFR ( Amer) ml/min Est GFR (Non-Af Amer) ml/min BUN/Creatinine Ratio (10-20) Glucose (70-99(Fasting)) mg/dl Lactate 0.7 (0.4-2.0) mmol/L Calcium (8.5-10.1) mg/dl Magnesium (1.7-2.4) mg/dl Total Bilirubin (0.2-1.0) mg/dl AST (13-39) U/L ALT (7-52) U/L Alkaline Phosphatase (34-104) U/L Troponin I High Sens (0-20) pg/ml Total Protein (6.0-8.3) gm/dl Albumin (3.4-5.0) gm/dl Globulin (2.5-4.0) gm/dl Albumin/Globulin Ratio (0.9-2) Procalcitonin (0-0.5) ng/ml SARS-CoV-2 (PCR) NEGATIVE (Negative) Influenza Type A (PCR) Negative (Neg) Influenza Type B (PCR) Negative (Neg) RSV (RT-PCR) Negative (Neg) Imaging Data Radiologist's Impression: Chest X-Ray 09/11/22 05:41 XR chest 1V portable CLINICAL HISTORY: Shortness of breath. COMPARISON STUDY: Chest CT March 17, 2022. Chest radiograph September 01, 2022. FINDINGS: Lung volumes are normal. Lungs are clear. There is no pneumothorax or pleural effusion. Cardiac size is normal. Mediastinal contours are normal. There is no evidence for pulmonary edema. IMPRESSION: No acute cardiopulmonary findings. ACT 112: Negative or not required by law. Electronically signed by: Bear Early M.D. 09/11/2022 6:49 AM Chest CTA 09/11/22 06:13 CT ANGIOGRAM OF THE CHEST CLINICAL HISTORY: Dyspnea. Atypical chest pain. COMPARISON STUDY: Chest x-ray dated 09/11/2022. Chest CT dated 03/17/2022. TECHNIQUE: Following the IV administration of 114 cc of Optiray 320, CT angiogram of the chest was performed from the upper abdomen to the thoracic inlet utilizing the pulmonary embolus protocol. Images are reviewed in the axial, sagittal, and coronal planes. 3-D MIPS images are created and assessed. IV contrast was administered without complication. A dose lowering technique was utilized adhering to the principles of ALARA. CT DOSE: 655.95 mGy.cm FINDINGS: Thyroid: Atrophic. Thoracic aorta: The thoracic aorta is normal in caliber and demonstrates standard 3-vessel arch anatomy. No dissection is seen. Pulmonary vasculature: The pulmonary trunk is normal in caliber. There are no filling defects identified in main, lobar, or segmental pulmonary branches to suggest pulmonary embolus. Heart: The heart is normal in size and without pericardial effusion. The coronary arteries are densely calcified. Lungs and pleural spaces: Emphysematous change is noted. There is no lobar consolidation or pleural effusion. Secretions/debris fills the right mainstem bronchus in the right lower lobe airways. A small amount of debris is seen within the left lower lobe airways. There are foci of tree-in-bud nodularity in the left upper lobe and at both lung bases. Foci of parenchymal scarring are seen throughout both lungs. A 6 mm low suspicion pleural-based nodule in the right lower lobe along the major fissure is unchanged. Mediastinum: There is no mediastinal lymphadenopathy. Bren: Clear. Axillae: There is no axillary lymphadenopathy. Upper abdomen: There is a small hiatal hernia. Partially visualized upper abdominal viscera is otherwise within normal limits. Skeletal structures: No lytic or blastic bony lesions are seen. IMPRESSION: 1. There is no evidence of pulmonary embolus in the main, lobar, or segmental pulmonary arteries. 2. Emphysema. 3. Secretions/debris fill the right mainstem bronchus and the right lower lobe airways. Mild debris is also seen in the left lower lobe airways. Correlate clinically for evidence of aspiration. 4. There are scattered foci of tree-in-bud nodularity seen throughout both lungs, likely representing a mild infectious/inflammatory pneumonitis. This may be chronic, as a similar findings were seen on 03/17/2022. 5. Advanced coronary artery calcification. 6. Additional findings as above. ACT 112: Negative or not required by law. Electronically signed by: Dar Chapin M.D. 09/11/2022 7:10 AM ECG Data Attestation: I personally reviewed and interpreted this ECG as follows: Indication: + SOB/dyspnea Rate (beats per minute): 74 Rhythm: + normal sinus ECG Intervals/blocks: + Normal QRS and + Normal QT ECG [place]: + Normal ECG ST segments: + Normal ST segments MDM Narrative An order was placed for continuous cardiac monitoring. The monitor shows a rate of __78_ with _normal sinus__ rhythm. This is a 62 yo male with c/o dyspnea who found to be hypoxia on arrival. Prior hx of pna and aspiration. Recent admit for dental infection. Patient with prior CVA and DM. VS stable and oxygen improved with NC supplementation. Labs sent cxr performed. CXR and EKG reassuring, however given hx and risk factors, he was sent for CT chest which showed evolving aspiration changes. Labs revealed hyperglycemia without DKA. Patient hx of COPD also. Patient given nebs here with minimal improvement and IV antibiotics. He has still be on oral antibiotics since his DC last week. No ecotpy or dysrhythmia noted on tele. Case discussed with hospitalist for additional evaluation and mgmt. Impression & Plan Dyspnea, COPD (chronic obstructive pulmonary disease), Hypoxia, Aspiration into airway Discharge Plan Visit Data Chief Complaint: Shortness of Breath/Dyspnea ED Provider: Alice Holloway Discharge Problem: Dyspnea, COPD (chronic obstructive pulmonary disease), Hypoxia, Aspiration into airway Patient Disposition: Admitted As Inpatient Discharge Instructions Interventions: ED Discharge Assessment Last Done: 09/11/22 10:31
--- NOTE | 2022-09-11 06:50 | XRay Report ---
XR chest 1V portable CLINICAL HISTORY: Shortness of breath. COMPARISON STUDY: Chest CT March 17, 2022. Chest radiograph September 01, 2022. FINDINGS: Lung volumes are normal. Lungs are clear. There is no pneumothorax or pleural effusion. Car diac size is normal. Mediastinal contours are normal. There is no evidence for pulmonary edema. IMPRESSION: No acute cardiopulmonary findings. ACT 112: Negative or not required by law. Electronically signed by: Bear Early M.D. 09/11/2022 6:49 AM
[2022-09-11 07:02] LABS: Influenza A virus by PCR Negative (Neg); Influenza B virus by PCR Negative (Neg); RSV by PCR Negative (Neg); SARS CoV2 RNA(COVID-19)Cepheid NEGATIVE (Negative)
--- NOTE | 2022-09-11 07:12 | CT Scan Report ---
CT ANGIOGRAM OF THE CHEST CLINICAL HISTORY: Dyspnea. Atypical chest pain. COMPARISON STUDY: Chest x-ray dated 09/11/2022. Chest CT dated 03/17/2022. TECHNIQUE: Following the IV administration of 114 cc of Optiray 320, CT angiogram of the chest was pe rformed from the upper abdomen to the thoracic inlet utilizing the pulmonary embolus protocol. Images are reviewed in the axial, sagittal, and coronal planes. 3-D MIPS images are created and assessed. I V contrast was administered without complication. A dose lowering technique was utilized adhering to the principles of ALARA. CT DOSE: 655.95 mGy.cm FINDINGS: Thyroid: Atrophic. Thoracic aorta: The thoracic aorta is normal in caliber and demonstrates standard 3-vessel arch anato my. No dissection is seen. Pulmonary vasculature: The pulmonary trunk is normal in caliber. There are no filling defects identif ied in main, lobar, or segmental pulmonary branches to suggest pulmonary embolus. Heart: The heart is normal in size and without pericardial effusion. The coronary arteries are densel y calcified. Lungs and pleural spaces: Emphysematous change is noted. There is no lobar consolidation or pleural e ffusion. Secretions/debris fills the right mainstem bronchus in the right lower lobe airways. A small amount of debris is seen within the left lower lobe airways. There are foci of tree-in-bud nodularit y in the left upper lobe and at both lung bases. Foci of parenchymal scarring are seen throughout bot h lungs. A 6 mm low suspicion pleural-based nodule in the right lower lobe along the major fissure is unchanged. Mediastinum: There is no mediastinal lymphadenopathy. Bren: Clear. Axillae: There is no axillary lymphadenopathy. Upper abdomen: There is a small hiatal hernia. Partially visualized upper abdominal viscera is otherw ise within normal limits. Skeletal structures: No lytic or blastic bony lesions are seen. IMPRESSION: 1. There is no evidence of pulmonary embolus in the main, lobar, or segmental pulmonary arteries. 2. Emphysema. 3. Secretions/debris fill the right mainstem bronchus and the right lower lobe airways. Mild debris i s also seen in the left lower lobe airways. Correlate clinically for evidence of aspiration. 4. There are scattered foci of tree-in-bud nodularity seen throughout both lungs, likely representing a mild infectious/inflammatory pneumonitis. This may be chronic, as a similar findings were seen on 03/17/2022. 5. Advanced coronary artery calcification. 6. Additional findings as above. ACT 112: Negative or not required by law. Electronically signed by: Dar Chapin M.D. 09/11/2022 7:10 AM
[2022-09-11] MEDS ORDERED: guaiFENesin 600 MG TABCR PO STA (07:35)
[2022-09-11] MEDS ORDERED: PIPERACILLIN/TAZOBACTAM 4.5 GM/120 ML BAG IV ONE (07:59)
--- NOTE | 2022-09-11 08:04 | History & Physical Report ---
Date of Service September 11, 2022 Assessment & Plan (1) Aspiration pneumonia: Admission and Anticipated Discharge Date Admission Date: September 11, 2022 History of Present Illness Chief Complaint: Shortness of breath, hypoxia Primary Care Provider: Josh Squires III, PATRIC Sam Larson is a 62 year old male who presents to the ER with shortness of breath. [place]ited productive cough, weakness He was recently admitted to [facility] Allergies Allergy/AdvReac Type Severity Reaction Status Date / Time lisinopril Allergy Severe " TONGUE Verified 09/07/22 15:42 SWELLS"--ANGIOEDEMA lorazepam AdvReac Intermediate Hallucinati Verified 09/07/22 15:42 ons Home Medications Medication Instructions Recorded Confirmed Type acetaminophen 325 mg capsule 325 mg PO Q6H PRN Pain 08/06/18 09/07/22 History (Tylenol) lactobacillus combination no.4 3 3,000 mmu cells PO QAM 08/06/18 09/07/22 History billion cell capsule (Probiotic) aspirin 81 mg tablet,delayed 81 mg PO QAM 06/09/19 09/07/22 History release magnesium 200 mg tablet 400 mg PO QAM 06/09/19 09/07/22 History flaxseed oil 1 ea miscellaneous TID 07/05/19 09/07/22 History glucosamine sulfate 500 mg tablet 500 mg PO QAM 07/05/19 09/07/22 History (Glucosamine) diazepam 2 mg tablet (Valium) 2 mg PO HS PRN Anxiety #30 tabs 12/01/19 09/07/22 Rx famotidine 10 mg tablet 10 mg PO BID 05/14/20 09/07/22 History levalbuterol HCl 0.63 mg/3 mL 0.63 mg (3 mL) inhalation Q6H PRN 06/08/20 09/07/22 Rx solution for nebulization shortness of breath or wheezing #360 mL insulin aspart 0 sliding scale dose subcut .AC & 12/02/20 09/07/22 History (niacinamide)(U-100) 100 unit/mL(3 SNACKS mL) subcutaneous pen (Fiasp FlexTouch U-100 Insulin) ferrous sulfate 325 mg (65 mg 325 mg PO BID 03/25/21 09/07/22 History iron) tablet nortriptyline 25 mg capsule 50 mg PO HS #180 caps 12/13/21 09/07/22 Rx promethazine 25 mg tablet 25 mg PO Q6H PRN nausea and 01/04/22 09/07/22 Rx vomiting #28 tabs metoclopramide HCl 10 mg tablet 10 mg PO QID #120 tabs 04/11/22 09/07/22 Rx (Reglan) insulin detemir U-100 100 unit/mL 0 unit subcut BID 05/03/22 09/07/22 History (3 mL) subcutaneous pen (Levemir FlexTouch U-100 Insulin) amlodipine 2.5 mg tablet 2.5 mg PO QAM #90 tabs 05/29/22 09/07/22 Rx pantoprazole 40 mg tablet,delayed 40 mg PO BID #180 tabs 05/29/22 09/07/22 Rx release (Protonix) atenolol 50 mg tablet (Tenormin) 50 mg PO BID #180 tabs 06/12/22 09/07/22 Rx atorvastatin 80 mg tablet 80 mg PO QPM #90 tabs 06/12/22 09/07/22 Rx levothyroxine 175 mcg tablet 175 mcg PO QAM #90 tabs 06/12/22 09/07/22 Rx folic acid 1 mg tablet 1 mg PO BID #180 tabs 06/27/22 09/07/22 Rx BiPap Machine #1 ea 07/14/22 09/07/22 Rx hydrocodone-homatropine 5 mg-1.5 1 tab PO BID PRN cough #60 tabs 07/20/22 09/07/22 Rx mg tablet losartan 100 mg tablet 100 mg PO QAM #90 tabs 08/08/22 09/07/22 Rx tamsulosin 0.4 mg capsule (Flomax) 0.4 mg PO QPM #90 caps 08/18/22 09/07/22 Rx Senecot 125 mg PO BID 08/28/22 09/07/22 History fexofenadine 180 mg tablet 180 mg PO QAM 08/28/22 09/07/22 History ([facility]) fluticasone fur. 100 mcg-umeclid 1 inh inhalation QAM 08/28/22 09/07/22 History 62.5 mcg-vilant 25 mcg inhalat.powder (Trelegy Ellipta) fremanezumab-vfrm 225 mg/1.5 mL 0 mg subcut DIRECTED 08/28/22 09/07/22 History subcutaneous syringe (Ajovy Syringe) isosorbide mononitrate 30 mg 30 mg PO QAM 08/28/22 09/07/22 History tablet,extended release 24 hr riboflavin (vitamin B2) 25 mg 25 mg PO ACHS 08/28/22 09/07/22 History tablet sodium chloride 1 gram tablet 1,000 mg PO BID 08/28/22 09/07/22 History bumetanide 1 mg tablet 2 mg PO DAILY #360 tabs 08/29/22 09/07/22 Rx sucralfate 1 gram tablet (Carafate) 1 g PO BID #60 tabs 08/29/22 09/07/22 Rx amoxicillin 875 mg-potassium 1 tab PO BID #20 tabs 09/04/22 09/07/22 Rx clavulanate 125 mg tablet ondansetron 8 mg disintegrating 8 mg PO Q8H PRN nausea and 09/07/22 09/07/22 Rx tablet vomiting #60 tabs oxycodone-acetaminophen 5 mg-325 1 tab PO QID PRN Pain 30 days #90 09/07/22 Rx mg tablet (Percocet) tabs albuterol sulfate 90 mcg/actuation See Rx Instructions .Route 09/08/22 Rx aerosol inhaler .COMPLEX #8.5 grams amoxicillin 500 mg capsule 500 mg PO Q8H #16 caps 09/09/22 09/09/22 Rx Past Med/Surg History Medical History Abnormal CT scan of lung Acute kidney injury Angioedema Asthma uses PRN inh daily 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 BPH (benign prostatic hyperplasia) CAD (coronary artery disease), [place] coronary artery Chronic diastolic CHF (congestive heart failure) pt unable to verify Chronic headache Chronic hyponatremia COPD (chronic obstructive pulmonary disease) DM type 1 (diabetes mellitus, type 1) Family history of colon cancer GERD (gastroesophageal reflux disease) History of angiography History of stroke History of subarachnoid hemorrhage 2013; memory/cognitive deficits (reports total of 3 strokes but only known event was in 2014 -- remaining strokes were incidental findings) Hyperkalemia Hyperlipidemia Hypertension Hypothyroidism Ischemic colitis Over 10 years ago (before 2007) Microcytic anemia Migraine LUZMA (obstructive sleep apnea) bipap PAD (peripheral artery disease) Premature ventricular beats Sepsis hx of Urinary retention Surgical History Difficult airway for intubation reports he was told he was a difficult intubation after rectal abscess surgery at [facility]. says he has been intubated since then without issues; denies problems prior to that procedure, as well. H/O colonoscopy last 2019 History of appendectomy History of esophagogastroduodenoscopy (EGD) History of eye surgery multiple History of hand surgery Hand Incision Tendon Sheath of a Finger History of rectal abscess I&D History of tonsillectomy and adenoidectomy History of transurethral resection of prostate History of vasectomy History of ventral hernia repair Family History Mother Hypertension Grandfather (Paternal) Colon cancer Prostate cancer Brother Brain cancer Diabetes Bone cancer Kidney disease Lung cancer Son Diabetes Lung cancer Father Hemorrhagic stroke Hypertension Other Breast cancer No family history of adverse response to anesthesia Testicular cancer Denies family history of Ovarian cancer Myocardial infarction Social History Smoking Status: Former smoker Tobacco Type: Cigarettes Age Started Using Tobacco: 16; Age Quit Using Tobacco: 49; packs per day: 1.5; Second Hand Exposure: No; Hx Alcohol Use: Yes (very rarely) Alcohol type: hard liquor Hx Substance Use: No Preferred Language: Cypriot Communication Ability: Effective Visual Impairment: No Limitations Hearing Ability: Hard of Hearing Screedman/Laborer Required: No Beliefs That Will Affect Care: None marital status: Current Living Situation: Spouse and Family current occupational status: disabled How many Children do You have: 1 Feels Safe at Home: Yes Childhood Exposure to Second-Hand Smoke: Yes Diet Comment: regular Dental Care, Regularly: Yes Physical Activity Frequency: Does not Exercise Seatbelt Use: always Sunscreen Use: Yes Assistive Devices: BiPap and Cane Results & Data Results & Data ([facility]) Vital Signs (Past 12 Hours) Vital Signs Temp Pulse Pulse Resp BP BP Pulse Ox 09/11/22 07:15 69 18 177/66 H 95 09/11/22 06:09 68 17 171/73 H 94 09/11/22 05:31 72 19 154/73 H 94 09/11/22 05:12 87 L 09/11/22 05:12 36.7 C 79 24 181/77 H 88 L O2 Del Method O2 Flow Rate 09/11/22 07:15 Nasal Cannula 09/11/22 06:09 09/11/22 05:31 09/11/22 05:12 Room Air 0 09/11/22 05:12 Room Air Laboratory Results Abnormal lab results 09/11/22 09/11/22 Range/Units 05:15 05:15 RBC 3.25 L (4.63-6.08) M/uL Hgb 10.4 L (14.0-18.0) g/dl Hct 30.8 L (40.1-51.0) % Plt Count 456 H (130-400) K/uL Sodium 133 L (136-145) mmol/L Chloride 96 L (98-107) mmol/L Glucose 218 H (70-99(Fasting)) mg/dl Alkaline Phosphatase 115 H (34-104) U/L Diagnostic Findings CT ANGIOGRAM OF THE CHEST CLINICAL HISTORY: Dyspnea. Atypical chest pain. COMPARISON STUDY: Chest x-ray dated 09/11/2022. Chest CT dated 03/17/2022. TECHNIQUE: Following the IV administration of 114 cc of Optiray 320, CT angiogram of the chest was performed from the upper abdomen to the thoracic inlet utilizing the pulmonary embolus protocol. Images are reviewed in the axial, sagittal, and coronal planes. 3-D MIPS images are created and assessed. IV contrast was administered without complication. A dose lowering technique was utilized adhering to the principles of ALARA. CT DOSE: 655.95 mGy.cm FINDINGS: Thyroid: Atrophic. Thoracic aorta: The thoracic aorta is normal in caliber and demonstrates standard 3-vessel arch anatomy. No dissection is seen. Pulmonary vasculature: The pulmonary trunk is normal in caliber. There are no filling defects identified in main, lobar, or segmental pulmonary branches to suggest pulmonary embolus. Heart: The heart is normal in size and without pericardial effusion. The coronary arteries are densely calcified. Lungs and pleural spaces: Emphysematous change is noted. There is no lobar consolidation or pleural effusion. Secretions/debris fills the right mainstem bronchus in the right lower lobe airways. A small amount of debris is seen within the left lower lobe airways. There are foci of tree-in-bud nodularity in the left upper lobe and at both lung bases. Foci of parenchymal scarring are seen throughout both lungs. A 6 mm low suspicion pleural-based nodule in the right lower lobe along the major fissure is unchanged. Mediastinum: There is no mediastinal lymphadenopathy. Bren: Clear. Axillae: There is no axillary lymphadenopathy. Upper abdomen: There is a small hiatal hernia. Partially visualized upper abdominal viscera is otherwise within normal limits. Skeletal structures: No lytic or blastic bony lesions are seen. IMPRESSION: 1. There is no evidence of pulmonary embolus in the main, lobar, or segmental pulmonary arteries. 2. Emphysema. 3. Secretions/debris fill the right mainstem bronchus and the right lower lobe airways. Mild debris is also seen in the left lower lobe airways. Correlate clinically for evidence of aspiration. 4. There are scattered foci of tree-in-bud nodularity seen throughout both lungs, likely representing a mild infectious/inflammatory pneumonitis. This may be chronic, as a similar findings were seen on 03/17/2022. 5. Advanced coronary artery calcification. 6. Additional findings as above. Medications Administered ER Medications Given: Duoneb 3ml NEB x2 Guaigenesin 600mg PO NSS @ 125 ml/hr Zosyn 4.5g IV ECG Indication: SOB/dyspnea Rate (beats per minute): 74 Rhythm: normal sinus Findings: no acute ischemic change Comparison ECG Date: from (September 01, 2022) Change: no significant change PG Care Time/CCT Total # of Minutes Spent Total Time Spent with Patient: Total time spent is greater than 50% in coordination of care (as documented) at patient's floor/unit and/or counseling patient: Coding Diagnoses Aspiration pneumonia J69.0
--- NOTE | 2022-09-11 10:19 | History & Physical Report ---
Date of Service September 11, 2022 Assessment & Plan (1) Aspiration pneumonia: Plan: Attending: Dr. Mendes Impression: 62-year-old male with type 1 diabetes, history of aspiration pneumonia, history of chronic aspiration, gastroparesis, COPD, obstructive sleep apnea requiring BiPAP, hypertension, obesity, gastric ulcer, GERD, chronic migraine headaches, hypothyroidism presents with shortness of breath since 3 AM this morning. Patient recently had submandibular incision and drainage on the left and was discharged from the hospital 09/04/2022. He was placed on Augmentin twice daily. Initial antibiotics started 09/01/2021 so today is day 10 of antibiotics. Procalcitonin is negative. White count is not elevated. Patient was afebrile. No evidence of change in sputum color or consistency. Patient does indicate that he has difficulty clearing secretions. Patient with known history of aspiration. * DuoNebs every 4 hours x6 doses * Continue patient's home Trelegy * Flutter valve q4h while awake and after each nebulizer treatment * Hypertonic saline nebs followed by flutter valve * No indication for bronchoscopy at this time but will check repeat CXR tomorrow morning * Since nebulizer treatments, patient seems to be doing well on room air but will continue 2 L/min via NC to keep SpO2 between 88-92% * Aspiration precautions * Patient currently on Augmentin for dental abscess. Will continue for an additional 5 days * ELECTRICAL ELECTRONICS TECHNICIAN consulted (2) Urinary retention: Plan: Patient with hx of BPH. Discharged with pack catheter 09/01/2022 * Neurogenic bladder 2* IDDMI * Continue Flomax * Clamp Pack and check volumjes at noon. If patient able to void, then will remove the pack * Patient was scheduled to have pack removed by Dr. Mao this am * Patient also aware that if he is unable to void that we may need to straight cath or replaced indwelling pack (3) Submandibular space infection: Plan: S/P I&D with Dr. Rojas 09/02/[address] Rojas in the office on 09/07/2022 and drains removed Patient completed 10 days of Abx. Will continue for an additional 5 days for pneumonitis as above No pain or drainage now per patient Procalcitonin 0.1, no elevation of WBC, Afebrile (4) Acquired blindness: Plan: Diabetic retinopathy since age 24 is proxy and patient advocate Patient will need assistance with ADLs and with walking (5) GERD (gastroesophageal reflux disease): Plan: Hx of gastric ulcer * Continue famotidine daily and pantoprazole BID * Outpatient management (6) BPH NOS w ur obs/LUTS: Plan: Continue Flomax See comments above regarding urinary retention (7) Chronic constipation: Plan: Continue home regimen including [place] and magnesium Will add Colace BID and Miralx daily as needed (8) Diabetes mellitus type 1, uncontrolled: Plan: Patient has never had an insulin pump Sugars currently running high Glycemic consult placed Patient aware that he may need insulin drip if BSG remains high A1c typically 7-8 - 8.0. Most recent A1c from last admission was 8.3. No indication to repeat labs at this time Follows with endocrinology (9) Essential hypertension: Plan: Patient in 4 agents Currently SBP 185 Has not had any of his home meds. Will have them given now Admit to telemetry until respiratory and infectious etiologies ruled out EKG with qTc 444 ms Daily EKG Most recent Echo 04/14/2021 with pLVEF 60-65% and mild mitral regurgitation Most recent cardiology visit with Samantha Tanner PA-C on 03/25/2021 Suggest outpatient follow up (10) Gastroparesis: Plan: Continue Metoclopramide QtC 444 ms No cogwheeling or ratcheting on examination (11) PAD (peripheral artery disease): Plan: Continue ASA 81 mg daily Peripheral pulses equal bilaterally to upper and lower extremities (12) Sleep apnea: Plan: Follows with Dr. Orosco in the sleep lab Continue BiPAP at 15/8 Patient may use his own machine while inpatient (13) Hyperlipidemia: Plan: Continue Atorvastatin Outpatient management (14) Chronic venous insufficiency: Plan: ASA 81 mg Daily Elevate legs as needed ( will request a recliner in the patient's room ) (15) Chronic hyponatremia: Plan: Patient currently takes chloride tablets daily Will restrict fluid intake to 1500ml daily Current Na+ is 133 (16) COPD (chronic obstructive pulmonary disease): Plan: Follows with Dr. Orosco Most recent visit 04/2022 Continue Trelegy Ellipta Maintain SpO2 88-92% Not on supplemental oxygen at home (17) Chronic diastolic CHF (congestive heart failure): Plan: Most recent echo 03/2021 Suggest follow up with CHF clinic on discharge Bumetanide 1mg PO Daily K+ 4.0 Mag 1.9 Continue magnesium 400mg daily (18) DVT prophylaxis: Plan: Enoxaparin 40mg SQ daily Ambulate as tolerated OOB to chair as tolerated Plan Admit to med/tele due to acute hypoxia and HTN controlled with 4 agents. Please refer to Dr. Mendes's addendum for further recommendations and co rrections History of Present Illness Chief Complaint: Hypoxia, SOB Primary Care Provider: Josh Squires III, CRNP Attending: Dr. Mendes This is a 62-year-old male with a complicated past medical history of diabetes mellitus type 1, chronic aspiration, COVID pneumonia 05/2021, hypertension on 4 agents, history of hyponatremia, peripheral vascular disease, peripheral arterial disease, hyperlipidemia, iron deficiency anemia, migraine headaches, hypothyroidism, chronic constipation, acquired blindness from retinopathy since age 24, indwelling Pack catheter since last admission, [id number] smoking history (quit smoking at age 49), Obstructive sleep apnea on BiPAP at 05/06, COPD, overweight with a BMI of 31.0 kg/m. Patient recently in the hospital for odontogenic abscess with incision and drainage of left submandibular gland on 09/02/2022. During that hospitalization, patient had urinary retention and a Pack catheter was placed. He was scheduled to go to urology today to have that removed. Patient did have follow-up with Dr. Rojas in the office last who said that his healing was going as expected and drains were removed at that office visit. Patient also had a post hospital follow-up visit with his primary care provider PATRIC Wesley who was concerned with developing pneumonia and told the patient to "keep an eye on things". Patient was continued on antibiotics as per discharge instructions with Augmentin 875/125 mg tablet twice daily for total of 10 days. Patient was initially started on antibiotics 09/01/2022 making today day #10 of antibiotics. Patient reports that over the last week he has had some increased shortness of breath and has noticed increased rattle in his chest and back. He has not had any audible wheezes. He does have a nebulizer machine at home and use that yesterday. This morning approximately 3 AM he awoke with shortness of breath and felt as though he could not take a deep breath. 911 was called and patient was brought to the emergency department was found to be hypoxic at 86%. This is also consistent with the patient's pulse oximetry at home. Patient was given nebulizer treatments and placed on supplemental oxygen and is feeling much better since admission. A CTA of the chest was completed and shows no evidence of pulmonary embolus. There is evidence of pneumonitis with tree-in-bud nodularity seen throughout both lungs which is similar to previous imaging on 03/17/2022. Patient also has secretions versus debris in the right mainstem bronchus and the right lower lobe airways. There is also mild debris in the left lower lobe airways. Patient also appears to have some debris in the esophagus. Patient does have history of diagnosed aspiration but is not on any modification of diet such as thickened liquids or soft or pured foods. Patient is currently comfortable. He has a SPO2 of 98% on my arrival while getting nebulizer treatment. Nebulizer mask was removed and patient was not placed on supplemental oxygen during the course of my interview and examination. Over the 20 minutes that I spent with the patient, he desaturated to 91% on room air. He was placed back on 2 L of supplemental oxygen with instructions for pulmonary toileting and incentive spirometry. Patient denies any fever, chills, sweats, rigors. He does have some scant sputum production which is clear to whitish/yellow. No green sputum. No hemoptysis. Patient denies any chest pain or pleuritic pain. He has no back pain or flank pain. Patient does feel somewhat bloated in the abdomen. He did have a small bowel movement yesterday but no bowel movement as of yet today Patient was discharged 7 days ago on 09/04/2022 with an indwelling Pack catheter. He has an appointment this morning with Dr. Mao to have Pack catheter removed in the office. At this time, we will clamp the catheter and drain at noon. If patient does have adequate urine output, we will plan on removing Pack catheter at noon time. Patient denies any hematuria or abdominal pain. Patient is a previous smoker with a [id number] smoking history. He quit smoking at age 49. He previously followed with Dr. Grullon from pulmonology with no recent pulmonary function testing. Currently follows with Dr. Orosco and was last seen 05/03/2022. Patient does have history of COVID-19 pneumonia in May 2021. He is fully vaccinated x2+2 boosters. CODE STATUS was discussed and patient wishes to be a full code. is present for discussion. Patient states that he would not want to be on a ventilator for prolonged period and would not want tracheostomy. Patient does have acquired blindness since age 24 and does require assistance. Will place order in system for patient's to be present as needed outside of visiting hours. Allergies Allergy/AdvReac Type Severity Reaction Status Date / Time lisinopril Allergy Severe " TONGUE Verified 09/11/22 08:40 SWELLS"--ANGIOEDEMA lorazepam AdvReac Intermediate Hallucinati Verified 09/11/22 08:40 ons Home Medications Medication Instructions Recorded Confirmed Type acetaminophen 325 mg capsule 325 mg PO Q6H PRN Pain 08/06/18 09/11/22 History (Tylenol) lactobacillus combination no.4 3 3,000 mmu cells PO QAM 08/06/18 09/11/22 History billion cell capsule (Probiotic) aspirin 81 mg tablet,delayed 81 mg PO QAM 06/09/19 09/11/22 History release magnesium 200 mg tablet 400 mg PO QAM 06/09/19 09/11/22 History flaxseed oil 1 ea miscellaneous TID 07/05/19 09/11/22 History glucosamine sulfate 500 mg tablet 500 mg PO QAM 07/05/19 09/11/22 History (Glucosamine) famotidine 10 mg tablet 10 mg PO BID 05/14/20 09/11/22 History levalbuterol HCl 0.63 mg/3 mL 0.63 mg (3 mL) inhalation Q6H PRN 06/08/20 09/11/22 Rx solution for nebulization shortness of breath or wheezing #360 mL insulin aspart 0 sliding scale dose subcut .AC & 12/02/20 09/11/22 History (niacinamide)(U-100) 100 unit/mL(3 SNACKS mL) subcutaneous pen (Fiasp FlexTouch U-100 Insulin) ferrous sulfate 325 mg (65 mg 325 mg PO BID 03/25/21 09/11/22 History iron) tablet nortriptyline 25 mg capsule 50 mg PO HS #180 caps 12/13/21 09/11/22 Rx promethazine 25 mg tablet 25 mg PO Q6H PRN nausea and 01/04/22 09/11/22 Rx vomiting #28 tabs metoclopramide HCl 10 mg tablet 10 mg PO QID #120 tabs 04/11/22 09/11/22 Rx (Reglan) insulin detemir U-100 100 unit/mL 0 unit subcut BID 05/03/22 09/11/22 History (3 mL) subcutaneous pen (Levemir FlexTouch U-100 Insulin) amlodipine 2.5 mg tablet 2.5 mg PO QAM #90 tabs 05/29/22 09/11/22 Rx pantoprazole 40 mg tablet,delayed 40 mg PO BID #180 tabs 05/29/22 09/11/22 Rx release (Protonix) atenolol 50 mg tablet (Tenormin) 50 mg PO BID #180 tabs 06/12/22 09/11/22 Rx levothyroxine 175 mcg tablet 175 mcg PO QAM #90 tabs 06/12/22 09/11/22 Rx folic acid 1 mg tablet 1 mg PO BID #180 tabs 06/27/22 09/11/22 Rx BiPap Machine #1 ea 07/14/22 09/07/22 Rx hydrocodone-homatropine 5 mg-1.5 1 tab PO BID PRN cough #60 tabs 07/20/22 09/11/22 Rx mg tablet losartan 100 mg tablet 100 mg PO QAM #90 tabs 08/08/22 09/11/22 Rx tamsulosin 0.4 mg capsule (Flomax) 0.4 mg PO QPM #90 caps 08/18/22 09/11/22 Rx Senecot 125 mg PO BID 08/28/22 09/11/22 History fexofenadine 180 mg tablet 180 mg PO QAM 08/28/22 09/11/22 History ([facility]) fluticasone fur. 100 mcg-umeclid 1 inh inhalation QAM 08/28/22 09/11/22 History 62.5 mcg-vilant 25 mcg inhalat.powder (Trelegy Ellipta) fremanezumab-vfrm 225 mg/1.5 mL 0 mg subcut DIRECTED 08/28/22 09/11/22 History subcutaneous syringe (Ajovy Syringe) isosorbide mononitrate 30 mg 30 mg PO QAM 08/28/22 09/11/22 History tablet,extended release 24 hr riboflavin (vitamin B2) 25 mg 25 mg PO ACHS 08/28/22 09/11/22 History tablet sodium chloride 1 gram tablet 1,000 mg PO BID 08/28/22 09/11/22 History sucralfate 1 gram tablet (Carafate) 1 g PO BID #60 tabs 08/29/22 09/11/22 Rx amoxicillin 875 mg-potassium 1 tab PO BID #20 tabs 09/04/22 09/11/22 Rx clavulanate 125 mg tablet ondansetron 8 mg disintegrating 8 mg PO Q8H PRN nausea and 09/07/22 09/11/22 Rx tablet vomiting #60 tabs oxycodone-acetaminophen 5 mg-325 1 tab PO QID PRN Pain 30 days #90 09/07/22 09/11/22 Rx mg tablet (Percocet) tabs albuterol sulfate 90 mcg/actuation 2 puff inhalation Q4H PRN 09/11/22 09/11/22 History aerosol inhaler Shortness Of Breath atorvastatin 80 mg tablet 80 mg PO HS 09/11/22 09/11/22 History bumetanide 1 mg tablet 1 mg PO BID 09/11/22 09/11/22 History galcanezumab-gnlm 120 mg/mL 0 mg subcut MONTHLY 09/11/22 09/11/22 History subcutaneous pen injector (Emgality Pen) Past Med/Surg History Medical History Abnormal CT scan of lung Acute kidney injury Angioedema Asthma uses PRN inh daily 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 BPH (benign prostatic hyperplasia) CAD (coronary artery disease), [place] coronary artery Chronic diastolic CHF (congestive heart failure) pt unable to verify Chronic headache Chronic hyponatremia COPD (chronic obstructive pulmonary disease) DM type 1 (diabetes mellitus, type 1) Family history of colon cancer GERD (gastroesophageal reflux disease) History of angiography History of stroke History of subarachnoid hemorrhage 2013; memory/cognitive deficits (reports total of 3 strokes but only known event was in 2014 -- remaining strokes were incidental findings) Hyperkalemia Hyperlipidemia Hypertension Hypothyroidism Ischemic colitis Over 10 years ago (before 2007) Microcytic anemia Migraine LUZMA (obstructive sleep apnea) bipap PAD (peripheral artery disease) Premature ventricular beats Sepsis hx of Urinary retention Surgical History Difficult airway for intubation reports he was told he was a difficult intubation after rectal abscess surgery at [facility]. says he has been intubated since then without issues; denies problems prior to that procedure, as well. H/O colonoscopy last 2019 History of appendectomy History of esophagogastroduodenoscopy (EGD) History of eye surgery multiple History of hand surgery Hand Incision Tendon Sheath of a Finger History of rectal abscess I&D History of tonsillectomy and adenoidectomy History of transurethral resection of prostate History of vasectomy History of ventral hernia repair Family History Mother Hypertension Grandfather (Paternal) Colon cancer Prostate cancer Brother Brain cancer Diabetes Bone cancer Kidney disease Lung cancer Son Diabetes Lung cancer Father Hemorrhagic stroke Hypertension Other Breast cancer No family history of adverse response to anesthesia Testicular cancer Denies family history of Ovarian cancer Myocardial infarction Social History Smoking Status: Former smoker Tobacco Type: Cigarettes Age Started Using Tobacco: 16; Age Quit Using Tobacco: 49; packs per day: 1.5; Second Hand Exposure: No; Do You Dip or Chew Tobacco: No; Tobacco Cessation Education Requested by Patient: No Hx Alcohol Use: No Hx Substance Use: No Preferred Language: Croatian Communication Ability: Effective Visual Impairment: No Limitations Hearing Ability: Hard of Hearing Supervisor Pipeline Maintenance Required: No Beliefs That Will Affect Care: None marital status: Current Living Situation: Spouse current occupational status: disabled How many Children do You have: 1 Other Information That Helps Us Care for You: No Feels Safe at Home: Yes Safety Concerns: Feels Safe At This Time Childhood Exposure to Second-Hand Smoke: Yes Diet Comment: regular Dental Care, Regularly: Yes Physical Activity Frequency: Does not Exercise Seatbelt Use: always Sunscreen Use: Yes Assistive Devices: BiPap and Cane Review of Systems Review of Systems: A total of 10 systems was reviewed and is negative other than as listed in the HPI Physical Exam Physical Exam: GENERAL : No acute distress EYES: No icterus, gaze conjugate NOSE: No evidence of epistaxis MOUTH: No lesions or candidiasis NECK: Supple LUNGS: Good inspirational effort. Patient does have coarse Rales at the bilateral bases and the bilateral mid lung zones. He also has has some rhonchi in the upper bhat. No appreciation of overt bronchospasm HEART: Regular, rate controlled ABDOMEN: Soft, NT, ND, BS Present : Patient has indwelling Pack catheter since discharge from the hospital 09/04/2022. There is currently 1200 mL of pale yellow fluid with no evidence of gross hematuria or debris. EXTREMITIES: No LE edema, pedal pulses intact NEURO: A&OX3 Results & Data Results & Data ([facility]) Vital Signs (Past 12 Hours) Vital Signs Temp Pulse Pulse Resp BP BP Pulse Ox 09/11/22 09:53 80 18 182/79 H 97 09/11/22 07:15 69 18 177/66 H 95 09/11/22 06:09 68 17 171/73 H 94 09/11/22 05:31 72 19 154/73 H 94 09/11/22 05:12 87 L 09/11/22 05:12 36.7 C 79 24 181/77 H 88 L O2 Del Method O2 Flow Rate 09/11/22 09:53 Nasal Cannula 4 09/11/22 07:15 Nasal Cannula 09/11/22 06:09 09/11/22 05:31 09/11/22 05:12 Room Air 0 09/11/22 05:12 Room Air Critical Care Results & Data Vital Signs (Past 12 Hours) Vital Signs Temp Pulse Pulse Resp BP BP Pulse Ox 09/11/22 09:53 80 18 182/79 H 97 09/11/22 07:15 69 18 177/66 H 95 09/11/22 06:09 68 17 171/73 H 94 09/11/22 05:31 72 19 154/73 H 94 09/11/22 05:12 87 L 09/11/22 05:12 36.7 C 79 24 181/77 H 88 L O2 Del Method O2 Flow Rate 09/11/22 09:53 Nasal Cannula 4 09/11/22 07:15 Nasal Cannula 09/11/22 06:09 09/11/22 05:31 09/11/22 05:12 Room Air 0 09/11/22 05:12 Room Air Lab & Micro Results (Past 24 Hours) RBC 3.18 M/uL (4.63-6.08) L 09/12/22 WBC 5.18 K/ul (4.8-10.8) 09/12/22 Hgb 10.0 g/dl (14.0-18.0) L 09/12/22 Hct 30.2 % (40.1-51.0) L 09/12/22 MCV 95.0 fL (80.0-100.0) 09/12/22 MCH 31.4 pg (25.0-34.0) 09/12/22 MCHC 33.1 g/dL (32.0-36.0) 09/12/22 RDW Standard Deviation 47.8 fL (36.4-46.3) H 09/12/22 RDW Coefficient of Variation 14.1 % (11.5-14.5) 09/12/22 Plt Count 444 K/uL (130-400) H 09/12/22 MPV 9.8 fL (9.4-12.4) 09/12/22 No Data to Display No Data to Display Diagnostic Findings (Past 24 Hours) Chest X-Ray 09/11/22 05:41 XR chest 1V portable CLINICAL HISTORY: Shortness of breath. COMPARISON STUDY: Chest CT March 17, 2022. Chest radiograph September 01, 2022. FINDINGS: Lung volumes are normal. Lungs are clear. There is no pneumothorax or pleural effusion. Cardiac size is normal. Mediastinal contours are normal. There is no evidence for pulmonary edema. IMPRESSION: No acute cardiopulmonary findings. ACT 112: Negative or not required by law. Electronically signed by: Bear Early M.D. 09/11/2022 6:49 AM Chest CTA 09/11/22 06:13 CT ANGIOGRAM OF THE CHEST CLINICAL HISTORY: Dyspnea. Atypical chest pain. COMPARISON STUDY: Chest x-ray dated 09/11/2022. Chest CT dated 03/17/2022. TECHNIQUE: Following the IV administration of 114 cc of Optiray 320, CT angiogram of the chest was performed from the upper abdomen to the thoracic inlet utilizing the pulmonary embolus protocol. Images are reviewed in the axial, sagittal, and coronal planes. 3-D MIPS images are created and assessed. IV contrast was administered without complication. A dose lowering technique was utilized adhering to the principles of ALARA. CT DOSE: 655.95 mGy.cm FINDINGS: Thyroid: Atrophic. Thoracic aorta: The thoracic aorta is normal in caliber and demonstrates standard 3-vessel arch anatomy. No dissection is seen. Pulmonary vasculature: The pulmonary trunk is normal in caliber. There are no filling defects identified in main, lobar, or segmental pulmonary branches to suggest pulmonary embolus. Heart: The heart is normal in size and without pericardial effusion. The coronary arteries are densely calcified. Lungs and pleural spaces: Emphysematous change is noted. There is no lobar consolidation or pleural effusion. Secretions/debris fills the right mainstem bronchus in the right lower lobe airways. A small amount of debris is seen within the left lower lobe airways. There are foci of tree-in-bud nodularity in the left upper lobe and at both lung bases. Foci of parenchymal scarring are seen throughout both lungs. A 6 mm low suspicion pleural-based nodule in the right lower lobe along the major fissure is unchanged. Mediastinum: There is no mediastinal lymphadenopathy. Bren: Clear. Axillae: There is no axillary lymphadenopathy. Upper abdomen: There is a small hiatal hernia. Partially visualized upper abdominal viscera is otherwise within normal limits. Skeletal structures: No lytic or blastic bony lesions are seen. IMPRESSION: 1. There is no evidence of pulmonary embolus in the main, lobar, or segmental pulmonary arteries. 2. Emphysema. 3. Secretions/debris fill the right mainstem bronchus and the right lower lobe airways. Mild debris is also seen in the left lower lobe airways. Correlate clinically for evidence of aspiration. 4. There are scattered foci of tree-in-bud nodularity seen throughout both lungs, likely representing a mild infectious/inflammatory pneumonitis. This may be chronic, as a similar findings were seen on 03/17/2022. 5. Advanced coronary artery calcification. 6. Additional findings as above. ACT 112: Negative or not required by law. Electronically signed by: Dar Chapin M.D. 09/11/2022 7:10 AM I & O Totals 24 Hours 09/10/22 09/11/22 09/12/22 06:59 06:59 06:59 Intake Total 120 / 120 Balance 120 / 120 Cumulative 09/11/22 05:02 thru 09/11/22 09:06 Intake Total 120 Balance 120 RT Ventilator Mngmt (Last Documented) Ventilator Ordered Settings Respiratory Rate 18 09/11/22 09:53 Ventilator - PT Measurements Respiratory Rate 18 Medications Administered Piperacillin sodium/tazobactam (Zosyn) 4.5 g at 08 100 this morning Mucinex 600 mg p.o. Sodium chloride 1 L Code Status & VTE Plan Code Status Full resuscitation VTE Prophylaxis Plan VTE Prophylaxis will be ordered: Yes Supervising Physician Co-Signing Physician Notes I personally saw and examined the patient. I verified all rajan points and agree with Dar Staley PA-C with the following exceptions and/or additions: 62-year-old male admission for hypoxia. Secretions versus debris in the right mainstem bronchus and right lower lobe airways with mild debris in the left lower lobe airways and debris in the esophagus. He denies any dysphagia or odynophagia but does have a history of chronic aspirations. Patient seen on the davis and already reports significant improvement but not yet back to his baseline. O/E HS1+2, no murmurs, RRR, Chest crackles bibasal Abdo SNT. A/P Aspiration pneumonitis versus pneumonia -procalcitonin negative and no neutrophilia on admission. Recommend prophylaxis antibiotics with Augmentin for a further 5 days. Main treatment however will be incentive spirometer, flutter valve, hypertonic saline, duo nebs to help cough up debris. Full consult speech and language therapy to help with aspiration risk. PG Care Time/CCT Total # of Minutes Spent Total Time Spent with Patient: Total time spent is greater than 50% in coordination of care (as documented) at patient's floor/unit and/or counseling patient: 60 minutes including chart review and approximately 30 minutes with patient and family Coding Level of Care Code 29680 Initial Inpt Care Lvl 3 Diagnoses Aspiration pneumonia J69.0 Urinary retention R33.9 Submandibular space infection K12.2 Acquired blindness H54.7 GERD (gastroesophageal reflux disease) K21.9 BPH NOS w ur obs/LUTS N40.1 Chronic constipation K59.09 Diabetes mellitus type 1, uncontrolled E10.65 Glycemic state: with hyperglycemia Essential hypertension I10 Gastroparesis K31.84 PAD (peripheral artery disease) I73.9 Sleep apnea G47.30 Hyperlipidemia E78.2 Hyperlipidemia type: mixed hyperlipidemia Chronic venous insufficiency I87.2 Chronic hyponatremia E87.1 COPD (chronic obstructive pulmonary disease) J44.9 COPD type: unspecified COPD Chronic diastolic CHF (congestive heart failure) I50.32 DVT prophylaxis Z29.9 Time Spent (min) 60 (1) Hyperlipidemia Hyperlipidemia type: mixed hyperlipidemia Qualified Code(s): E78.2 - Mixed hyperlipidemia (2) Diabetes mellitus type 1, uncontrolled Glycemic state: with hyperglycemia Qualified Code(s): E10.65 - Type 1 diabetes mellitus with hyperglycemia (3) COPD (chronic obstructive pulmonary disease) COPD type: unspecified COPD Qualified Code(s): J44.9 - Chronic obstructive pulmonary disease, unspecified
[2022-09-11] MEDS ORDERED: PROMETHAZINE HCL 25 MG TAB PO PRN (10:54)
[2022-09-11] MEDS ORDERED: ACETAMINOPHEN 325 MG TAB PO PRN (10:54)
[2022-09-11] MEDS ORDERED: NON-FORMULARY MEDICATION (Fluticasone-Umeclidin-Vilanter [Trelegy Ellipta] 100-62.5-25 mcg INH SCH (10:54)
[2022-09-11] MEDS ORDERED: ALBUTEROL HFA 8 GM INHALER INH PRN (10:54)
[2022-09-11] MEDS ORDERED: ALUMINUM/MAGNESIUM SUSP 30 ML UDC PO PRN (10:54)
[2022-09-11] MEDS ORDERED: MAGNESIUM HYDROXIDE SUSP 30 ML UDC PO PRN (10:54)
[2022-09-11] MEDS ORDERED: POLYETHYLENE (MIRALAX) 17 GM PACK PO PRN (10:54)
[2022-09-11] MEDS ORDERED: PHARMACY GLYCEMIC MGMT CONSULT PRN (10:54)
[2022-09-11] MEDS: ALBUT/IPRATROP 3MG/0.5MG NEB 3 ML VIAL NEB SCH ×4 (11:24→23:09)
[2022-09-11] MEDS ORDERED: DEXTROSE 50% 50 ML SYRINGE IV PRN (11:30)
[2022-09-11] MEDS ORDERED: CARBOHYDRATES FOR HYPOGLYCEMIA PO PRN (11:30)
[2022-09-11] MEDS ORDERED: GLUCOSE 10 TAB/TUBE PO PRN (11:30)
[2022-09-11] MEDS ORDERED: GLUCOSE 40% GEL 15 GM TUBE PO PRN (11:30)
[2022-09-11] MEDS ORDERED: GLUCAGON FOR INJ 1 MG VIAL IM PRN (11:30)
[2022-09-11] MEDS ORDERED: LANTUS PER UNIT CHARGE SQ ONE (11:30)
[2022-09-11] MEDS: INSULIN ASPART PER UNIT SC SCH ×3 (11:49→21:30)
[2022-09-11] MEDS: ASPIRIN 81 MG ECTAB PO SCH (11:54)
[2022-09-11] MEDS: AMOXICILLIN/CLAVULANATE 875 MG TAB PO SCH ×2 (11:54→16:35)
[2022-09-11] MEDS: amLODIPine BESYLATE 5 MG TAB PO SCH (11:54)
[2022-09-11] MEDS: oxyCODONE/ACETAMINOPHEN 5mg/325mg TAB PO PRN ×2 (12:21→18:26)
[2022-09-11] MEDS: ONDANSETRON INJ 2 MG/ML 2 ML VIAL IV PRN (12:21)
[2022-09-11] MEDS: SODIUM CHLORIDE 1 GM TABLET PO SCH ×2 (12:33→21:27)
[2022-09-11] MEDS: SUCRALFATE 1 GM TAB PO SCH ×2 (12:33→21:27)
[2022-09-11] MEDS: DOCUSATE SODIUM 100 MG CAP PO SCH ×2 (12:33→21:28)
[2022-09-11] MEDS: FAMOTIDINE 10 MG TABLET PO SCH (12:34)
[2022-09-11] MEDS: ISOSORBIDE MONO EXTENDED REL 30 MG TABCR PO SCH (12:34)
[2022-09-11] MEDS: guaiFENesin 600 MG TABCR PO SCH (12:34)
[2022-09-11] MEDS: ATENOLOL 50 MG TABLET PO SCH ×2 (12:35→21:29)
[2022-09-11] MEDS: BUMETANIDE 1 MG TAB PO SCH ×2 (12:35→16:35)
[2022-09-11] MEDS: METOCLOPRAMIDE HCL 10 MG TABLET PO SCH ×3 (12:35→21:27)
[2022-09-11] MEDS: PANTOprazole 40 MG TAB PO SCH ×2 (12:35→21:28)
[2022-09-11] MEDS: FERROUS SULFATE 325 MG TAB PO SCH ×2 (12:36→16:35)
[2022-09-11] MEDS: FOLIC ACID 1 MG TAB PO SCH ×2 (12:36→21:28)
[2022-09-11] MEDS: LOSARTAN POTASSIUM 50 MG TAB PO SCH (12:36)
[2022-09-11] MEDS: ENOXAPARIN INJ 40 MG/0.4 ML SYR SQ SCH (12:36)
--- NOTE | 2022-09-11 12:38 | Pharmacy Report ---
Pharmacy Glycemic Short Note 2 - Date of Service September 11, 2022 - Glycemic Short BSG Results (Last 24 hours): 09/11/22 09/11/22 09/11/22 05:15 11:21 11:22 Glucose 218 H POC Glucose 342 H* 359 H* OUTPATIENT ANTIDIABETIC REGIMEN: * Levemir 36 units SC qAM, 42 units SC qPM * Fiasp sliding scale insulin HbA1c: 8.3% (09/02/22) ASSESSMENT: * DL is a 62 year old male admitted today with shortness of breath presumed secondary to aspiration pneumonia * Currently completing course of Augmentin for dental abscess * History of uncontrolled T1DM * Recently discharged from [facility] on 09/04/22, pharmacy consulted for glycemic management during that admission * BSG of 342 mg/dL upon admission to floor - will use prior admission to guide initial insulin dosing * BSGs trended low when placed on a regimen similar to home regimen last admission and patient refused evening basal on one day * Will be conservative with initial basal and titrate up as needed PLAN FOR INPATIENT GLYCEMIC CONTROL: * Basal insulin * Lantus 35 units SC x 1 with lunch * Lantus 0-25 units SC HS (see EHR for details) * Reassess in AM * Bolus insulin * NovoLog per scale ACHS or Q6hrs while NPO * Goal Range: Low 110 mg/dL - High 140 mg/dL * Correction Factor: 15 mg/dL/unit * Nutritional / Prandial insulin per carb ratio of 1 unit per 4 grams CHO consumed
[2022-09-11] MEDS: MAGNESIUM OXIDE 400 MG TAB PO SCH (12:44)
[2022-09-11] MEDS: UMECLIDINIUM/VILANTEROL 62.5/25MCG 7 PUFFS/INHALER INH SCH (12:55)
[2022-09-11] MEDS: FLUTICASONE FUROATE 100MCG 14 PUFFS/INHALER INH SCH (12:55)
[2022-09-11] MEDS: ADVANCED PROBIOTIC 1250 MG CAPSULE PO SCH (12:55)
[2022-09-11] MEDS: SENNA 8.6 MG TAB PO SCH ×2 (13:13→21:27)
[2022-09-11] MEDS: SODIUM CHLOR 7% 4 ML NEB NEB SCH (19:37)
[2022-09-11] MEDS ORDERED: LANTUS PER UNIT CHARGE SQ SCH (21:00)
[2022-09-11] MEDS: TAMSULOSIN HCL 0.4 MG CAP PO SCH (21:26)
[2022-09-11] MEDS: NORTRIPTYLINE HCL 25 MG CAP PO SCH (21:28)
[2022-09-11] MEDS: ATORVASTATIN 40 MG TAB PO SCH (21:29)
[2022-09-12] MEDS: ALBUT/IPRATROP 3MG/0.5MG NEB 3 ML VIAL NEB SCH ×2 (03:01→07:05)
[2022-09-12] MEDS: LEVOTHYROXINE SODIUM 175 MCG TABLET PO SCH (05:42)
[2022-09-12] MEDS: SODIUM CHLOR 7% 4 ML NEB NEB SCH ×2 (07:05→19:45)
[2022-09-12] MEDS: oxyCODONE/ACETAMINOPHEN 5mg/325mg TAB PO PRN ×3 (07:36→19:59)
[2022-09-12] MEDS: INSULIN ASPART PER UNIT SC SCH ×4 (08:31→20:10)
[2022-09-12] MEDS: ADVANCED PROBIOTIC 1250 MG CAPSULE PO SCH (08:36)
[2022-09-12] MEDS: amLODIPine BESYLATE 5 MG TAB PO SCH (08:36)
[2022-09-12] MEDS: FERROUS SULFATE 325 MG TAB PO SCH ×2 (08:36→16:59)
[2022-09-12] MEDS: BUMETANIDE 1 MG TAB PO SCH ×2 (08:36→16:58)
[2022-09-12] MEDS: MAGNESIUM OXIDE 400 MG TAB PO SCH (08:37)
[2022-09-12] MEDS: ASPIRIN 81 MG ECTAB PO SCH (08:37)
[2022-09-12] MEDS: AMOXICILLIN/CLAVULANATE 875 MG TAB PO SCH ×2 (08:37→16:59)
[2022-09-12] MEDS: ISOSORBIDE MONO EXTENDED REL 30 MG TABCR PO SCH (08:37)
[2022-09-12] MEDS: LOSARTAN POTASSIUM 50 MG TAB PO SCH (08:37)
[2022-09-12] MEDS: FAMOTIDINE 10 MG TABLET PO SCH ×2 (08:37→12:15)
[2022-09-12] MEDS: SUCRALFATE 1 GM TAB PO SCH ×2 (08:38→20:08)
[2022-09-12] MEDS: SODIUM CHLORIDE 1 GM TABLET PO SCH ×2 (08:38→20:08)
[2022-09-12] MEDS: DOCUSATE SODIUM 100 MG CAP PO SCH ×2 (08:38→20:11)
[2022-09-12] MEDS: SENNA 8.6 MG TAB PO SCH ×2 (08:38→20:07)
[2022-09-12] MEDS: PANTOprazole 40 MG TAB PO SCH ×2 (08:38→20:07)
[2022-09-12] MEDS: ATENOLOL 50 MG TABLET PO SCH ×2 (08:38→20:01)
[2022-09-12] MEDS: FOLIC ACID 1 MG TAB PO SCH ×2 (08:38→20:03)
[2022-09-12] MEDS: guaiFENesin 600 MG TABCR PO SCH ×2 (08:38→20:04)
[2022-09-12] MEDS: METOCLOPRAMIDE HCL 10 MG TABLET PO SCH ×4 (08:38→20:05)
[2022-09-12] MEDS: UMECLIDINIUM/VILANTEROL 62.5/25MCG 7 PUFFS/INHALER INH SCH (08:39)
[2022-09-12] MEDS: ENOXAPARIN INJ 40 MG/0.4 ML SYR SQ SCH (08:39)
[2022-09-12] MEDS: FLUTICASONE FUROATE 100MCG 14 PUFFS/INHALER INH SCH (08:39)
[2022-09-12 08:41] LABS: Hematocrit (blood only) 30.2 % (40.1-51.0); Mean Corpuscular Hemoglobin 31.4 pg (25.0-34.0); Mean Corpuscular Hgb Conc 33.1 g/dL (32.0-36.0); Mean Platelet Volume 9.8 fL (9.4-12.4); Platelet Count 444 K/uL (130-400); RDW Coefficient of Variation 14.1 % (11.5-14.5); RDW Standard Deviation 47.8 fL (36.4-46.3); Red Blood Count 3.18 M/uL (4.63-6.08); White Blood Count 5.18 K/ul (4.8-10.8)
[2022-09-12] MEDS ORDERED: LANTUS PER UNIT CHARGE SQ SCH (09:00)
[2022-09-12 09:27] LABS: BUN Creatinine Ratio 13.7 (10-20); Creatinine Clr Calc Pharmacy 91.3 ml/min; Est GFR (African American) 98.3 ml/min; Est GFR (Non-African American) 84.9 ml/min; Potassium 4.5 mmol/L (3.5-5.1)
--- NOTE | 2022-09-12 10:18 | Pharmacy Report ---
Pharmacy Glycemic Short Note 2 - Date of Service September 12, 2022 - Glycemic Short BSG Results (Last 24 hours): 09/11/22 09/11/22 09/11/22 11:21 11:22 16:29 Glucose POC Glucose 342 H* 359 H* 209 H 09/11/22 09/11/22 09/12/22 20:39 22:19 01:45 Glucose POC Glucose 84 147 H 89 09/12/22 09/12/22 07:22 08:19 Glucose 336 H* POC Glucose 279 H OUTPATIENT ANTIDIABETIC REGIMEN: * Levemir 36 units SC qAM, 42 units SC qPM * Fiasp sliding scale insulin HbA1c: 8.3% (09/02/22) ASSESSMENT: 09/12/22: * BSGs trended down nicely throughout the day yesterday, 342 -> 209 -> 84 mg/dL * Received 81 units of insulin (35 units of basal and 46 units of prandial/correctional bolus) * BSG of 279 mg/dL this morning, however, patient requested icecream and emmanuel crackers overnight - will not overreact to this value * 300 mg/dL at lunch, will give additional basal now and will loosen correction factor based on prior admission data showing overcorrection with correction factor of 12 09/11/22: * DL is a 62 year old male admitted today with shortness of breath presumed secondary to aspiration pneumonia * Currently completing course of Augmentin for dental abscess * History of uncontrolled T1DM * Recently discharged from [facility] on 09/04/22, pharmacy consulted for glycemic management during that admission * BSG of 342 mg/dL upon admission to floor - will use prior admission to guide initial insulin dosing * BSGs trended low when placed on a regimen similar to home regimen last admission and patient refused evening basal on one day * Will be conservative with initial basal and titrate up as needed PLAN FOR INPATIENT GLYCEMIC CONTROL: * Basal insulin * Lantus 35 units SC x 1 this morning, additional 25 units with lunch to equal 60 units today * Bolus insulin * NovoLog per scale ACHS or Q6hrs while NPO * Goal Range: Low 110 mg/dL - High 140 mg/dL * Correction Factor: 15 mg/dL/unit * Nutritional / Prandial insulin per carb ratio of 1 unit per 3.5 grams CHO consumed
--- NOTE | 2022-09-12 10:56 | XRay Report ---
SINGLE VIEW CHEST CLINICAL HISTORY: Hypoxia. Aspiration pneumonia. FINDINGS: An AP, portable, upright chest radiograph is compared to chest x-ray and chest CT dated . The cardiomediastinal silhouette is unremarkable. Interstitial thickening is similar to prev ious. There is elevation of the right hemidiaphragm with bibasilar scarring/atelectasis. No lobar con solidation or large pleural effusion is identified. No pneumothorax is seen. The skeletal structures are osteopenic. The bony thorax is grossly intact. IMPRESSION: No acute cardiopulmonary abnormality is identified. Foci of tree-in-bud nodularity seen b y CT are not well-visualized by x-ray. ACT 112: Negative or not required by law. Electronically signed by: Dar Chapin M.D. 09/12/2022 10:54 AM
[2022-09-12] MEDS ORDERED: LANTUS PER UNIT CHARGE SQ ONE (11:45)
--- NOTE | 2022-09-12 16:14 | Fluoroscopy Report ---
FL video swallow CLINICAL HISTORY: 62 years-old Male with worsening dysphagia. TECHNIQUE: Video fluoroscopic evaluation of swallowing was performed in the AP and lateral projection s by the speech pathology staff. The patient is fed thin liquid, mildly thick, pudding and cracker wi th paste consistencies FLUOROSCOPY TIME: 2.5 minutes. COMPARISON STUDY: Video swallow study 07/09/2019. FINDINGS: Aspiration with thin liquid barium. Decreased oral pharyngeal transit is noted with vallecu lar retention throughout the study. IMPRESSION: 1. Aspiration with thin liquid barium. 2. Please see the speech pathologist report for detailed findings and recommendations. ACT 112: Negative or not required by law. Electronically signed by: Irineo Arenas M.D. 09/12/2022 4:13 PM
--- NOTE | 2022-09-12 19:16 | Hospitalist Progress Note ---
Date of Service September 12, 2022 Assessment & Plan (1) Aspiration pneumonia: Plan: Impression: 62-year-old male with type 1 diabetes, history of aspiration pneumonia, history of chronic aspiration, gastroparesis, COPD, obstructive sleep apnea requiring BiPAP, hypertension, obesity, gastric ulcer, GERD, chronic migraine headaches, hypothyroidism presents with shortness of breath since 3 AM this morning. Patient recently had submandibular incision and drainage on the left and was discharged from the hospital 09/04/2022. He was placed on Augmentin twice daily. Initial antibiotics started 09/01/2021 so today is day 10 of antibiotics. Procalcitonin is negative. White count is not elevated. Patient was afebrile. No evidence of change in sputum color or consistency. Patient does indicate that he has difficulty clearing secretions. Patient with known history of aspiration. * DuoNebs every 4 hours x6 doses * Continue patient's home Trelegy * Flutter valve q4h while awake and after each nebulizer treatment * Hypertonic saline nebs followed by flutter valve * No indication for bronchoscopy at this time but will check repeat CXR tomorrow morning * Since nebulizer treatments, patient seems to be doing well on room air but will continue 2 L/min via NC to keep SpO2 between 88-92% * Aspiration precautions * Patient currently on Augmentin for dental abscess. Will continue for an additional 5 days Speech recommendations: 1. Minced and moist diet (Per patient request secondary to oral pain) With thin liquids - No straws at any time; Allows for regular textured items as desired. 2. Behavior management of aspiration including - Small sips and slow rate of oral p.o. intake. Oral hold and chin tuck or thin liquid intake. 3. Consideration for outpatient speech therapyTo reteach behavioral management (Small bites/Slow rate)And reinforce importance of these recommendations. Aspiration precautions - Alternate solids and liquids, supervised meals, fully Alert and upright, oral hygiene, single bites/small sips/slow rate, No straws. Reflux precautions - Alternate solids and liquids, head of bed at 30 degrees at all times, Upright with meals +30 minutes I suspect the head of bed at 30 degrees all times is the most important intervention since his aspiration occurred at 4:30am with debris in the esophagus on CT Patient was weaned off oxygen at rest. (2) Urinary retention: Plan: Patient with hx of BPH. Discharged with pack catheter 09/01/2022 * Neurogenic bladder 2* IDDMI * Continue Flomax * Clamp Pack and check volumes at noon. If patient able to void, then will remove the pack * Patient was scheduled to have pack removed by Dr. Mao this am * Patient also aware that if he is unable to void that we may need to straight cath or replaced indwelling pack Continue tamsulosin 0.4 mg p.o. daily (3) Submandibular space infection: Plan: S/P I&D with Dr. Rojas 09/02/[address] Rojas in the office on 09/07/2022 and drains removed Patient completed 10 days of Abx. Will continue for an additional 5 days for pneumonitis as above No pain or drainage now per patient -hard palpable submandibular area corresponds to fibrous tissue from drain placement. Procalcitonin 0.1, no elevation of WBC, Afebrile (4) Acquired blindness: Plan: Diabetic retinopathy since age 24 is proxy and patient advocate Patient will need assistance with ADLs and with walking (5) GERD (gastroesophageal reflux disease): Plan: Hx of gastric ulcer * Continue famotidine daily and pantoprazole BID * Outpatient management (6) BPH NOS w ur obs/LUTS: Plan: Continue Flomax See comments above regarding urinary retention (7) Chronic constipation: Plan: Continue home regimen including [place] and magnesium Will add Colace BID and Miralx daily as needed (8) Diabetes mellitus type 1, uncontrolled: Plan: Patient has never had an insulin pump Sugars currently running high Glycemic consult placed Patient aware that he may need insulin drip if BSG remains high A1c typically 7-8 - 8.0. Most recent A1c from last admission was 8.3. No indication to repeat labs at this time Follows with endocrinology (9) Essential hypertension: Plan: Patient in 4 agents Currently SBP 185 Has not had any of his home meds. Will have them given now Admit to telemetry until respiratory and infectious etiologies ruled out EKG with qTc 444 ms Daily EKG Most recent Echo 04/14/2021 with pLVEF 60-65% and mild mitral regurgitation Most recent cardiology visit with Samantha Tanner PA-C on 03/25/2021 Suggest outpatient follow up (10) Gastroparesis: Plan: Continue Metoclopramide QtC 444 ms No cogwheeling or ratcheting on examination (11) PAD (peripheral artery disease): Plan: Continue ASA 81 mg daily Peripheral pulses equal bilaterally to upper and lower extremities (12) Sleep apnea: Plan: Follows with Dr. Orosco in the sleep lab Continue BiPAP at 15/8 Patient may use his own machine while inpatient (13) Hyperlipidemia: Plan: Continue Atorvastatin Outpatient management (14) Chronic venous insufficiency: Plan: ASA 81 mg Daily Elevate legs as needed ( will request a recliner in the patient's room ) (15) Chronic hyponatremia: Plan: Patient currently takes chloride tablets daily Will restrict fluid intake to 1500ml daily Current Na+ is 133 (16) COPD (chronic obstructive pulmonary disease): Plan: Follows with Dr. Orosco Most recent visit 04/2022 Continue Trelegy Ellipta Maintain SpO2 88-92% Not on supplemental oxygen at home (17) Chronic diastolic CHF (congestive heart failure): Plan: Most recent echo 03/2021 Suggest follow up with CHF clinic on discharge Bumetanide 1mg PO Daily K+ 4.0 Mag 1.9 Continue magnesium 400mg daily (18) DVT prophylaxis: Plan: Enoxaparin 40mg SQ daily Ambulate as tolerated OOB to chair as tolerated Plan Continued admission to [facility] telemetry. Weaned off oxygen in the room. Will informally walk around the [place] tonight to see if he needs oxygen. Consider to 2 step tomorrow if he remains short of breath. Admission and Anticipated Discharge Date Admission Date: September 11, 2022 Subjective Patient reports doing well with the speech and language evaluation. His shortness of breath is vastly improved. He was weaned off oxygen in the room and maintaining sats of 94%. Keen to be discharged in the morning. Review of Systems Review of Systems: All systems reviewed & are unremarkable except as noted in Subjective Physical Exam Constitutional: WD/WN, vitals as above Respiratory: normal respiratory effort; no respiratory distress Auscultation: + diminished lung sounds (Bibasal); no crackles and no wheezes Cardiovascular: RRR, no murmur, no edema Gastrointestinal (Abdomen): normal bowel sounds, soft, nontender, no hepatosplenomegaly Psychiatric: A+Ox3, euthymic affect Results & Data Results & Data ([facility]) Vital Signs (Past 12 Hours) Vital Signs Temp Pulse Pulse Resp BP Pulse Ox Pulse Ox 09/12/22 17:44 73 09/12/22 15:15 36.5 C 73 16 160/70 H 98 09/12/22 11:15 36.7 C 79 19 132/66 95 09/12/22 11:41 09/12/22 11:15 75 09/12/22 10:54 95 09/12/22 07:43 36.6 C 76 18 162/68 H 97 O2 Del Method O2 Del Method O2 Flow Rate O2 Flow Rate 09/12/22 17:44 09/12/22 15:15 Nasal Cannula 2 09/12/22 11:15 Nasal Cannula 1.5 09/12/22 11:41 Nasal Cannula 1.5 09/12/22 11:15 09/12/22 10:54 Nasal Cannula 1.5 09/12/22 07:43 Nasal Cannula 1.5 PG Care Time/CCT Total # of Minutes Spent Total Time Spent with Patient: Total time spent is greater than 50% in coordination of care (as documented) at patient's floor/unit and/or counseling patient: Coding Level of Care Code 57618 Subseq Hosp Care Lvl 2 Diagnoses Aspiration pneumonia J69.0 Urinary retention R33.9 Submandibular space infection K12.2 Acquired blindness H54.7 GERD (gastroesophageal reflux disease) K21.9 BPH NOS w ur obs/LUTS N40.1 Chronic constipation K59.09 Diabetes mellitus type 1, uncontrolled E10.65 Glycemic state: with hyperglycemia Essential hypertension I10 Gastroparesis K31.84 PAD (peripheral artery disease) I73.9 Sleep apnea G47.30 Hyperlipidemia E78.2 Hyperlipidemia type: mixed hyperlipidemia Chronic venous insufficiency I87.2 Chronic hyponatremia E87.1 COPD (chronic obstructive pulmonary disease) J44.9 COPD type: unspecified COPD Chronic diastolic CHF (congestive heart failure) I50.32 DVT prophylaxis Z29.9 (1) Hyperlipidemia Hyperlipidemia type: mixed hyperlipidemia Qualified Code(s): E78.2 - Mixed hyperlipidemia (2) Diabetes mellitus type 1, uncontrolled Glycemic state: with hyperglycemia Qualified Code(s): E10.65 - Type 1 diabetes mellitus with hyperglycemia (3) COPD (chronic obstructive pulmonary disease) COPD type: unspecified COPD Qualified Code(s): J44.9 - Chronic obstructive pulmonary disease, unspecified
[2022-09-12] MEDS: ONDANSETRON INJ 2 MG/ML 2 ML VIAL IV PRN (19:23)
[2022-09-12] MEDS ORDERED: ALBUT/IPRATROP 3MG/0.5MG NEB 3 ML VIAL ONE (19:40)
[2022-09-12] MEDS: ATORVASTATIN 40 MG TAB PO SCH (20:02)
[2022-09-12] MEDS: NORTRIPTYLINE HCL 25 MG CAP PO SCH (20:06)
[2022-09-12] MEDS: TAMSULOSIN HCL 0.4 MG CAP PO SCH (20:09)
[2022-09-13] MEDS ORDERED: INSULIN ASPART PER UNIT SC ONE (02:00)
[2022-09-13] MEDS: oxyCODONE/ACETAMINOPHEN 5mg/325mg TAB PO PRN ×3 (02:02→14:58)
[2022-09-13] MEDS: LEVOTHYROXINE SODIUM 175 MCG TABLET PO SCH (05:52)
--- NOTE | 2022-09-13 06:21 | Electrocardiogram Report ---
Test Reason : Blood Pressure : / mmHG Vent. Rate : 074 BPM Atrial Rate : 074 BPM P-R Int : 174 ms QRS Dur : 084 ms QT Int : 400 ms P-R-T Axes : 049 037 056 degrees QTc Int : 444 ms Normal sinus rhythm Normal ECG When compared with ECG of 01-SEP-2022 08:14, No significant change was found Confirmed by Sharath Greenfield ([id number]) on 09/13/2022 6:21:21 AM Referred By: REFERRED SELF Confirmed By:Sharath Greenfield
[2022-09-13 06:50] LABS: Hematocrit (blood only) 29.6 % (40.1-51.0); Hemoglobin 9.8 g/dl (14.0-18.0); Mean Corpuscular Hemoglobin 31.5 pg (25.0-34.0); Mean Corpuscular Hgb Conc 33.1 g/dL (32.0-36.0); Mean Corpuscular Volume 95.2 fL (80.0-100.0); Mean Platelet Volume 9.4 fL (9.4-12.4); Platelet Count 412 K/uL (130-400); RDW Coefficient of Variation 14.1 % (11.5-14.5); RDW Standard Deviation 48.3 fL (36.4-46.3); Red Blood Count 3.11 M/uL (4.63-6.08); White Blood Count 4.98 K/ul (4.8-10.8)
[2022-09-13 07:10] LABS: BUN Creatinine Ratio 16.9 (10-20); Calcium 8.9 mg/dl (8.5-10.1); Creatinine Clr Calc Pharmacy 92.6 ml/min; Est GFR (African American) 108.5 ml/min; Est GFR (Non-African American) 93.6 ml/min; Potassium 3.8 mmol/L (3.5-5.1)
[2022-09-13] MEDS: SODIUM CHLOR 7% 4 ML NEB NEB SCH (07:26)
[2022-09-13] MEDS: INSULIN ASPART PER UNIT SC SCH ×3 (08:19→17:20)
[2022-09-13] MEDS: ENOXAPARIN INJ 40 MG/0.4 ML SYR SQ SCH (08:21)
[2022-09-13] MEDS: FLUTICASONE FUROATE 100MCG 14 PUFFS/INHALER INH SCH (08:21)
[2022-09-13] MEDS: UMECLIDINIUM/VILANTEROL 62.5/25MCG 7 PUFFS/INHALER INH SCH (08:21)
[2022-09-13] MEDS: ASPIRIN 81 MG ECTAB PO SCH (08:22)
[2022-09-13] MEDS: FERROUS SULFATE 325 MG TAB PO SCH ×2 (08:22→17:16)
[2022-09-13] MEDS: FAMOTIDINE 10 MG TABLET PO SCH ×2 (08:22→12:38)
[2022-09-13] MEDS: ISOSORBIDE MONO EXTENDED REL 30 MG TABCR PO SCH (08:22)
[2022-09-13] MEDS: BUMETANIDE 1 MG TAB PO SCH ×2 (08:22→17:16)
[2022-09-13] MEDS: amLODIPine BESYLATE 5 MG TAB PO SCH (08:22)
[2022-09-13] MEDS: LOSARTAN POTASSIUM 50 MG TAB PO SCH (08:22)
[2022-09-13] MEDS: ADVANCED PROBIOTIC 1250 MG CAPSULE PO SCH (08:22)
[2022-09-13] MEDS: SODIUM CHLORIDE 1 GM TABLET PO SCH (08:23)
[2022-09-13] MEDS: PANTOprazole 40 MG TAB PO SCH (08:23)
[2022-09-13] MEDS: SENNA 8.6 MG TAB PO SCH (08:23)
[2022-09-13] MEDS: SUCRALFATE 1 GM TAB PO SCH (08:23)
[2022-09-13] MEDS: METOCLOPRAMIDE HCL 10 MG TABLET PO SCH ×3 (08:23→17:19)
[2022-09-13] MEDS: MAGNESIUM OXIDE 400 MG TAB PO SCH (08:23)
[2022-09-13] MEDS: AMOXICILLIN/CLAVULANATE 875 MG TAB PO SCH ×2 (08:23→17:16)
[2022-09-13] MEDS: guaiFENesin 600 MG TABCR PO SCH (08:23)
[2022-09-13] MEDS: FOLIC ACID 1 MG TAB PO SCH (08:23)
[2022-09-13] MEDS: DOCUSATE SODIUM 100 MG CAP PO SCH (08:24)
[2022-09-13] MEDS: ATENOLOL 50 MG TABLET PO SCH (08:24)
[2022-09-13] MEDS ORDERED: LANTUS PER UNIT CHARGE SQ SCH ×2 (09:00→21:00)
--- NOTE | 2022-09-13 12:20 | Pharmacy Report ---
Pharmacy Glycemic Short Note 2 - Date of Service September 13, 2022 - Glycemic Short BSG Results (Last 24 hours): 09/12/22 09/12/22 09/12/22 14:40 16:13 17:33 Glucose POC Glucose 96 113 H 76 09/12/22 09/13/22 09/13/22 17:51 01:56 06:36 Glucose 137 H POC Glucose 95 268 H 09/13/22 09/13/22 07:30 11:20 Glucose POC Glucose 118 H 211 H OUTPATIENT ANTIDIABETIC REGIMEN: * Levemir 36 units SC qAM, 42 units SC qPM * Fiasp sliding scale insulin HbA1c: 8.3% (09/02/22) ASSESSMENT: 09/13/22: * BSGs elevated early in the day yesterday, but trended down quickly following lunchtime Novolog * Correction factor loosened last evening, will continue today * Received 117 units of insulin (60 units of basal and 57 units of prandial/correctional bolus) * Basal insulin doses were variable last admission, so will utilize scale this evening to allow for decreased dose if needed 09/12/22: * BSGs trended down nicely throughout the day yesterday, 342 -> 209 -> 84 mg/dL * Received 81 units of insulin (35 units of basal and 46 units of prandial/correctional bolus) * BSG of 279 mg/dL this morning, however, patient requested icecream and emmanuel crackers overnight - will not overreact to this value * 300 mg/dL at lunch, will give additional basal now and will loosen correction factor based on prior admission data showing overcorrection with correction factor of 12 09/11/22: * DL is a 62 year old male admitted today with shortness of breath presumed secondary to aspiration pneumonia * Currently completing course of Augmentin for dental abscess * History of uncontrolled T1DM * Recently discharged from [facility] on 09/04/22, pharmacy consulted for glycemic management during that admission * BSG of 342 mg/dL upon admission to floor - will use prior admission to guide initial insulin dosing * BSGs trended low when placed on a regimen similar to home regimen last admission and patient refused evening basal on one day * Will be conservative with initial basal and titrate up as needed PLAN FOR INPATIENT GLYCEMIC CONTROL: * Basal insulin * Lantus 30 units SC x 1 this morning * Lantus 10-30 units SC HS this evening (see EHR for details) * Reassess in AM * Bolus insulin * NovoLog per scale ACHS or Q6hrs while NPO * Goal Range: Low 110 mg/dL - High 140 mg/dL * Correction Factor: 20 mg/dL/unit * Nutritional / Prandial insulin per carb ratio of 1 unit per 3.5 grams CHO consumed
--- NOTE | 2022-09-13 23:33 | Electrocardiogram Report ---
Test Reason : Blood Pressure : / mmHG Vent. Rate : 068 BPM Atrial Rate : 068 BPM P-R Int : 168 ms QRS Dur : 088 ms QT Int : 430 ms P-R-T Axes : 038 036 055 degrees QTc Int : 457 ms Normal sinus rhythm Normal ECG When compared with ECG of 11-SEP-2022 05:19, No significant change was found Confirmed by Sharath Greenfield ([id number]) on 09/13/2022 11:33:09 PM Referred By: REFERRED SELF Confirmed By:Sharath Greenfield
--- NOTE | 2022-09-14 06:47 | Electrocardiogram Report ---
Test Reason : Blood Pressure : / mmHG Vent. Rate : 065 BPM Atrial Rate : 065 BPM P-R Int : 198 ms QRS Dur : 074 ms QT Int : 406 ms P-R-T Axes : 047 035 043 degrees QTc Int : 422 ms Normal sinus rhythm Normal ECG When compared with ECG of 12-SEP-2022 05:38, No significant change was found Confirmed by Sharath Greenfield ([id number]) on 09/14/2022 6:46:37 AM Referred By: REFERRED SELF Confirmed By:Sharath Greenfield
--- NOTE | 2022-09-25 12:47 | Discharge Summary ---
Date of Service September 13, 2022 Principal Diagnosis Aspiration pneumonitis Discharge Exam Constitutional WD/WN, vitals as above Respiratory normal respiratory effort; no respiratory distress Auscultation: + diminished lung sounds (bibasal); no crackles and no wheezes Cardiovascular RRR, no murmur, no edema Skin no rashes, warm and dry Psychiatric A+Ox3, euthymic affect Discharge Data Allergies Allergy/AdvReac Type Severity Reaction Status Date / Time lisinopril Allergy Severe " TONGUE Verified 09/18/22 11:14 SWELLS"--ANGIOEDEMA lorazepam AdvReac Intermediate Hallucinati Verified 09/18/22 11:14 ons Consultations 09/11/22 08:00 ED Decision to Admit Stat Ordered Studies 09/11/22 06:13 CT angio chest PE protocol Stat IMPRESSION: 1. There is no evidence of pulmonary embolus in the main, lobar, or segmental pulmonary arteries. 2. Emphysema. 3. Secretions/debris fill the right mainstem bronchus and the right lower lobe airways. Mild debris is also seen in the left lower lobe airways. Correlate clinically for evidence of aspiration. 4. There are scattered foci of tree-in-bud nodularity seen throughout both lungs, likely representing a mild infectious/inflammatory pneumonitis. This may be chronic, as a similar findings were seen on 03/17/2022. 5. Advanced coronary artery calcification. 6. Additional findings as above. 09/12/22 13:00 FL video swallow Routine IMPRESSION: 1. Aspiration with thin liquid barium. 2. Please see the speech pathologist report for detailed findings and recommendations. Hospital Course (1) Aspiration pneumonia: Sam Larson is a 62 year old male admitted to [facility] from September 11 - 2021 due to shortness of breath and hypoxia. He was diagnosed with aspiration pneumonitis and treated with incentive spirometer, flutter valve and nebulizers. He is now no longer requiring oxygen and is medically stable for discharge. Given high risk for pneumonia he will continue Augmentin for a further 3 days. He should also continue incentive spirometer and flutter valve for atleast the next 3 days. Aspiration precautions per speech and language therapy to reduce risk of further aspirations: 1. Minced and moist diet (Per patient request secondary to oral pain) With thin liquids - No straws at any time; Allows for regular textured items as desired. 2. Behavior management of aspiration including - Small sips and slow rate of oral p.o. intake. Oral hold and chin tuck or thin liquid intake. 3. Consideration for outpatient speech therapy to reteach behavioral management (Small bites/Slow rate)And reinforce importance of these recommendations. Aspiration precautions - Alternate solids and liquids, supervised meals, fully Alert and upright, oral hygiene, single bites/small sips/slow rate, No straws. Reflux precautions - Alternate solids and liquids,head of bed at 30 degrees at all times, Upright with meals +30 minutes Prescription for an adjustable bed given on discharge to help with keeping your head elevated at night. Recommend not eating too much close to bedtime either. (2) Urinary retention: Removed pack catheter during admission and he passed trial without catheter (3) Submandibular space infection: (4) Acquired blindness: (5) GERD (gastroesophageal reflux disease): (6) BPH NOS w ur obs/LUTS: (7) Chronic constipation: (8) Diabetes mellitus type 1, uncontrolled: (9) Essential hypertension: (10) Gastroparesis: (11) PAD (peripheral artery disease): (12) Sleep apnea: (13) Hyperlipidemia: (14) Chronic venous insufficiency: (15) Chronic hyponatremia: (16) COPD (chronic obstructive pulmonary disease): (17) Chronic diastolic CHF (congestive heart failure): Total Time Total Time Spent Total Time Spent (In Minutes): 40 Discharge Plan Discharge Items Patient Disposition: Home - Self-Care Reason For Visit: ASPIRATION PNEUMONIA/PNEUMONITIS,HYPOXIA Discharge Diagnosis: Aspiration pneumonitis Activity: Resume your previous activity Non-emergency contact: Primary Care Provider Call non-emergency contact if: you have any medication questions and your symptoms worsen Follow-up/Referrals: Josh Squires III, CRNP [Primary Care Provider] - 09/25/22 4:00 pm Diet: Carb Count or DM1 Diet Texture: Mechanical soft (ground) Addtl Attending Provider Instructions: You were admitted to [facility] from September 11 - 2021 due to shortness of breath and low oxygen saturations. You were diagnosed with aspiration pneumonitis and treated with incentive spirometer, flutter valve and nebulizers. You are now no longer requiring oxygen and are medically stable for discharge. Please continue Augmentin for a further 3 days to reduce risk of aspiration pneumonia. Continue incentive spirometer and flutter valve for the next 3 days in addition. Please follow aspiration precautions per speech and language therapy to reduce risk of further aspirations: 1. Minced and moist diet (Per patient request secondary to oral pain) With thin liquids - No straws at any time; Allows for regular textured items as desired. 2. Behavior management of aspiration including - Small sips and slow rate of oral p.o. intake. Oral hold and chin tuck or thin liquid intake. 3. Consideration for outpatient speech therapyTo reteach behavioral management (Small bites/Slow rate)And reinforce importance of these recommendations. Aspiration precautions - Alternate solids and liquids, supervised meals, fully Alert and upright, oral hygiene, single bites/small sips/slow rate, No straws. Reflux precautions - Alternate solids and liquids,head of bed at 30 degrees at all times, Upright with meals +30 minutes Prescription for an adjustable bed given on discharge to help with keeping your head elevated at night. Recommend not eating too much close to bedtime either. Kind regards, Dr Dmitry Mendes Pending Studies at Discharge: No Stand-Alone Forms: My [facility], Smoking Cessation Medications and DC Order Prescriptions: Continued nortriptyline 25 mg capsule 50 mg PO HS Qty: 180 3RF Rx Instructions: take 2 capsules by mouth at bedtime promethazine 25 mg tablet 25 mg PO Q6H PRN (Reason: nausea and vomiting) Qty: 28 5RF metoclopramide HCl [Reglan] 10 mg tablet 10 mg PO QID Qty: 120 5RF pantoprazole [Protonix] 40 mg tablet,delayed release (DR/EC) 40 mg PO BID Qty: 180 1RF amlodipine 2.5 mg tablet 2.5 mg PO QAM Qty: 90 3RF atenolol [Tenormin] 50 mg tablet 50 mg PO BID Qty: 180 1RF levothyroxine 175 mcg tablet 175 mcg PO QAM Qty: 90 1RF Rx Instructions: tAKEN @ 0300 folic acid 1 mg tablet 1 mg PO BID Qty: 180 3RF (DME) BiPap Machine Misc .Route Qty: 1 0RF Rx Instructions: Needs new machine per [employer]. hydrocodone-homatropine 5-1.5 mg tablet 1 tab PO BID PRN (Reason: cough) Qty: 60 0RF losartan 100 mg tablet 100 mg PO QAM Qty: 90 3RF tamsulosin [Flomax] 0.4 mg capsule 0.4 mg PO QPM Qty: 90 3RF oxycodone-acetaminophen [Percocet] 5-325 mg tablet 1 tab PO QID PRN (Reason: Pain) 30 Days Qty: 90 0RF Rx Instructions: For post surgical Pain. Will return to previous sig after post-op pain resolved levalbuterol HCl 0.63 mg/3 mL solution for nebulization 0.63 mg inhalation Q6H PRN (Reason: shortness of breath or wheezing) Qty: 360 5RF sucralfate [Carafate] 1 gram tablet 1 g PO BID Qty: 60 2RF Rx Instructions: Crush and mix with 15 mL of water Fiasp FlexTouch U-100 Insulin 100 unit/mL (3 mL) insulin pen 0 sliding scale dose subcut .AC & SNACKS Rx Instructions: 1-4 CARBS IS 1 UNIT subcut daily; SLIDING SCALE; FOR EVERY 20 CARBS, ADD ANOTHER 1 UNIT OF INSULIN 2 EXTRA 2 UNITS FOR 150-170 CARBS AND IF OVER 150, ADD 2 UNITS FOR EVERY 20 POINTS OVER FOR HIS BLOOD SUGAR aspirin 81 mg tablet,delayed release (DR/EC) 81 mg PO QAM ferrous sulfate 325 mg (65 mg iron) tablet 325 mg PO BID ondansetron 8 mg tablet,disintegrating 8 mg PO Q8H PRN (Reason: nausea and vomiting) Qty: 60 0RF flaxseed oil Oil 1 ea miscellaneous TID Rx Instructions: DOSE 1,200 MG TID glucosamine sulfate [Glucosamine] 500 mg Tablet 500 mg PO QAM famotidine 10 mg Tablet 10 mg PO BID Rx Instructions: TAKES AM & LUNCH acetaminophen [Tylenol] 325 mg Capsule 325 mg PO Q6H PRN (Reason: Pain) Probiotic 3 billion cell Capsule 3,000 mmu cells PO QAM magnesium 200 mg tablet 400 mg PO QAM fexofenadine [Manuela Allergy] 180 mg Tablet 180 mg PO QAM riboflavin (vitamin B2) 25 mg Tablet 25 mg PO ACHS sodium chloride 1 gram Tablet 1,000 mg PO BID Trelegy Ellipta 100-62.5-25 mcg blister with device 1 inh INHALATION QAM Senecot 125 mg PO BID isosorbide mononitrate 30 mg tablet extended release 24 hr 30 mg PO QAM Rx Instructions: take 1 tablet by mouth every morning atorvastatin 80 mg tablet 80 mg PO HS bumetanide 1 mg tablet 1 mg PO BID albuterol sulfate 90 mcg/actuation HFA aerosol inhaler 2 puff inhalation Q4H PRN (Reason: Shortness Of Breath) Discontinued amoxicillin-pot clavulanate 875-125 mg tablet 1 tab PO BID Qty: 20 0RF Rx Instructions: Started 09/03 --> End 09/13 Did not take today (09/11) No Action Ajovy Syringe 225 mg/1.5 mL syringe 1.5 mg SUBCUT DIRECTED Rx Instructions: monthly, next dose 09/19/22 Levemir FlexTouch U-100 Insuln 100 unit/mL (3 mL) insulin pen See Rx Instructions subcut BID Rx Instructions: subcutaneously twice a day; TAKES 38 UNITS QAM, THEN 46 UNITS QPM. Discharge Orders: Discharge Order (Routine); Ordered 09/13/22 Ordered By: Dmitry Mendes Admission Data Admit Date/Time: 09/11/22 08:07 Attending Provider: Dmitry Mendes Admit Provider: Dmitry Mendes Primary Care Provider: Josh Squires III Other Interventions: Discharge Summary Assessment (RN) Last Done: 09/13/22 16:37 Coding Level of Care Code D/C DAY MANAGEMENT >30 MINS Diagnoses Aspiration pneumonia J69.0 Urinary retention R33.9 Submandibular space infection K12.2 Acquired blindness H54.7 GERD (gastroesophageal reflux disease) K21.9 BPH NOS w ur obs/LUTS N40.1 Chronic constipation K59.09 Diabetes mellitus type 1, uncontrolled E10.65 Glycemic state: with hyperglycemia Essential hypertension I10 Gastroparesis K31.84 PAD (peripheral artery disease) I73.9 Sleep apnea G47.30 Hyperlipidemia E78.2 Hyperlipidemia type: mixed hyperlipidemia Chronic venous insufficiency I87.2 Chronic hyponatremia E87.1 COPD (chronic obstructive pulmonary disease) J44.9 COPD type: unspecified COPD Chronic diastolic CHF (congestive heart failure) I50.32
== END 2022-09-13 17:56 | disposition home or self-care (01) | DRG 178 ==
LOC: ED 05:08 → 2W 08:07

== ENCOUNTER 2024-11-06 07:34 | Inpatient (IN) ==
[2024-11-06 08:34] LABS: Basophils # (auto) 0.02 K/uL (0.00-0.20); Basophils % (auto) 0.3 %; Eosinophils # (auto) 0.06 K/uL (0.00-0.50); Hematocrit (blood only) 26.5 % (42.0-52.0); Hemoglobin 9.1 g/dl (14.0-18.0); Immature Granulocytes # (auto) 0.01 K/uL (0.01-0.20); Immature Granulocytes % (auto) 0.2 %; Lymphocytes # (auto) 0.73 K/uL (1.20-3.40); Lymphocytes % (auto) 11.9 %; Mean Corpuscular Hemoglobin 31.7 pg (25.0-34.0); Mean Corpuscular Hgb Conc 34.3 g/dL (32.0-36.0); Mean Corpuscular Volume 92.3 fL (80.0-100.0); Mean Platelet Volume 10.3 fL (9.4-12.4); Monocytes # (auto) 0.46 K/uL (0.11-0.59); Monocytes % (auto) 7.5 %; Neutrophils # (auto) 4.88 K/uL (1.40-6.50); Neutrophils % (auto) 79.1 %; Platelet Count 244 K/uL (130-400); RDW Coefficient of Variation 12.7 % (11.5-14.5); RDW Standard Deviation 42.7 fL (36.4-46.3); Red Blood Count 2.87 M/uL (4.70-6.10); White Blood Count 6.16 K/ul (4.8-10.8)
--- NOTE | 2024-11-06 09:01 | XRay Report ---
XR chest 1V portable HISTORY: 64 years-old Male productive cough COMPARISON: 09/12/2022 TECHNIQUE: AP view of the chest FINDINGS: Cardiac mediastinal and hilar silhouettes are unchanged. Mild chronic interstitial coarsening. No pne umothorax, pleural effusion or airspace consolidation. The bones of the chest appear grossly intact. IMPRESSION: No acute process. ACT 112: Negative or not required by law. The above report was generated using voice recognition software. It may contain grammatical, syntax o r spelling errors. Electronically signed by: Irineo Arenas M.D. 11/06/2024 8:59 AM
[2024-11-06 09:06] LABS: Alanine Aminotransferase 35 U/L (7-52); Albumin Globulin Ratio 1.3 (0.9-2); Albumin Level 3.7 gm/dl (3.4-5.0); Alkaline Phosphatase 161 U/L (34-104); Anion Gap 7 (3-11); Aspartate Aminotransferase 20 U/L (13-39); BUN Creatinine Ratio 15.3 (10-20); Bilirubin,Total 0.5 mg/dl (0.2-1.0); Blood Urea Nitrogen 15 mg/dl (6-23); Calcium 8.4 mg/dl (8.6-10.3); Carbon Dioxide 25 mmol/L (21-32); Chloride 94 mmol/L (98-107); Globulin 2.9 gm/dl (2.5-4.0); Glucose 387 mg/dl (70-99(Fasting)); INR 0.9 (0.9-1.1); Lipase 20 U/L (11-82); Partial Thromboplastin Ratio 1.1; Partial Thromboplastin Time 29 Seconds (21-31); Potassium 4.4 mmol/L (3.5-5.1); Prothrombin Time 10.2 Seconds (9.0-12.0); Sodium 126 mmol/L (136-145); Total Protein 6.6 gm/dl (6.0-8.3); Troponin I High Sensitivity 199.3 pg/ml (0-20)
[2024-11-06] MEDS: OPTIRAY 320 100ml IV ONE (09:11)
--- NOTE | 2024-11-06 10:00 | CT Scan Report ---
CT abd pelvis IV con only CLINICAL HISTORY: abdominal discomfort TECHNIQUE: Helical axial images of the abdomen and pelvis were obtained and displayed. Automated dose lowering techniques and/or adjustment according to patient size were utilized for this exam. This e xam was performed with intravenous contrast. CT DOSE: 1241.87 mGy.cm COMPARISON: Comparison is made to CT abdomen pelvis 04/10/2016 FINDINGS: Lower chest: Bilateral lower lung groundglass opacities are seen superimposed on emphysema. Liver: Unremarkable. No focal lesions are seen. Gallbladder and biliary tree: No calcified gallstones. Normal caliber wall. No intra- or extrahepatic biliary ductal dilation. Pancreas: Unremarkable, no focal lesions. Spleen: Unremarkable. Adrenals: Unremarkable. Kidneys and ureters: Unremarkable. Bladder: Unremarkable. Reproductive organs: Unremarkable. Bowel: The appendix is normal. Lymph nodes Retroperitoneal: Unremarkable. Pelvic: Unremarkable. Mesenteric: Unremarkable. Peritoneum: Normal. Vessels: Atherosclerotic calcifications are seen. Abdominal wall: A fat-containing umbilical hernia is seen. Bones: Degenerative changes in the visualized spine. IMPRESSION: No acute abnormalities to explain abdominal pain. Groundglass opacities in the bilateral lung bases m ay represent pneumonia or other infectious/inflammatory process ACT 112: Negative or not required by law. Electronically signed by: Dharmesh Hidalgo M.D. 11/06/2024 9:58 AM
--- NOTE | 2024-11-06 10:54 | History & Physical Report ---
Date of Service November 06, 2024 Assessment & Plan (1) Hemoptysis: Plan: Sam is a pleasant 64-year-old male with PMH of T1DM, LUZMA, COPD, GERD, HTN, CVA, subarachnoid hemorrhage in 2013, chronic venous insufficiency, neurogenic bladder, CAD, CKD, & urinary retention. He presented on 11/06 for hemoptysis. Patient is legally blind. Bright red/thick blood noticed by his (Laine) yesterday on 11/05 Hgb 9.1 on arrival Note: Patient was given a dye load for A/P CT in the emergency department Given that patient is nonhypoxic/nontachycardic, will defer chest CTA to rule out PE at this time, as doing so would require an additional load of IV contrast Suspect secondary to #2 (pneumonia) the patient has had hemoptysis with bronchitis in the past RLE swelling; venous Doppler of the RLE ordered, pending If (+) will consider heparin IV If (-) will likely need to obtain chest CTA on 11/07 Additional consideration: patient endorses dark tarry stool, but he attributes to iron supplements; given normal BUN, lower suspicion for GI bleed at this time Also A/P CT made no mention of active extravasation to suggest active bleeding Trend H&H for now (2) Pneumonia: Plan: Suspected pneumonia secondary to hemoptysis and groundglass opacities noted on A/P CT No leukocytosis; afebrile Sputum culture ordered, pending Rocephin 2000 mg IV q24h Doxycycline 100 mg IV q12h Incentive spirometry, flutter valve Mucinex BID Supplemental oxygen as needed (3) Unstable angina: Plan: Hx paints suspicious picture for unstable angina x 2 days Intermittent, substernal chest pain that can occur at rest Denies pleuritic CP Chest pain not alleviated by his regular GERD medications Troponin elevated at 199-->231 on arrival; trend every 6 hours to peak Echocardiogram ordered, pending Patient is chest pain-free at time of admission History of imaging does reveal coronary arteries are densely calcified Follows with [facility] outpatient Touched base with cardiology, and from an ACS standpoint, would defer anticoagulation at this time due to low Hgb and hemoptysis Troponin may also be secondary to demand ischemia in the setting of pneumonia Cardiology consult appreciated EKG as needed for chest pain Continuous telemetry monitoring (4) Diabetes mellitus type 1, uncontrolled: Plan: Last A1c at 7.9% on 04/14/2024 Glucose 387 on admission Patient is normally on Tresiba 38 units BID Lantus BID + SSI while inpatient T1DM diet BSG ACHS Adjust regimen as needed Pharmacy glycemic consult management appreciated AM A1c (5) Hyponatremia: Plan: Chronic; NA 126 on arrival Continue sodium chloride 2 g tablets TID Pending Doppler, we will either continue Bumex/fluid restrict, versus hold Bumex temporarily Trend BMP (6) Elevated troponin: (7) Blindness: Plan Disposition: Admit to PCU telemetry Full code T1DM, heart healthy diet VTE PPx: Heparin v SCDs pending Doppler History of Present Illness Chief Complaint: GI assessment Primary Care Provider: Josh Squires III, PATRIC Sam is a pleasant 64-year-old male with PMH of T1DM, LUZMA, COPD, GERD, HTN, CVA, subarachnoid hemorrhage in 2013 (?spontaneous/non-traumatic), chronic venous insufficiency, neurogenic bladder, CAD, CKD, and urinary retention. He presented on 11/06 for hemoptysis. Patient is legally blind. While he has not noticed any blood in his cough, his (Laine) noticed bright red blood in his cough yesterday. Patient has been coughing x 2 days, but only developed red/thick blood and cough yesterday. Additionally, he has had intermittent substernal chest pain over the past 2 days. It developed 1 night after he ate spaghetti with red sauce. He does have a history of GERD and initially thought it might be secondary to what he ate, however after taking Mylanta, he developed no relief. This was abnormal for him. He then developed intermittent chest pain of the next 2 days, which will occasionally occur at rest. He rates the pain 5/10 at its worst. Pain can last for seconds to minutes at a time. He characterizes it as a dull/burning pain. Patient did take oxycodone 1 day for the pain, but he also takes this for his headaches. No radiation of the pain to the shoulders/jaw/down the arm/ordered middle back between the shoulder blades. He denies pleuritic chest pain or pain with deep breaths. Patient did see a chiropractor last night for an adjustment, however he denies any recent muscle strains, injuries to the chest wall, or falls. He ambulates with a weighted cane at baseline, but does not need to use it in the house. No sick contacts to his knowledge. He has had ongoing CAGLE when going up steps for the past 30 years. He denies SOB at rest, but did notice some SOB when he was laying flat the past couple days. Additionally, he has had liquidy diarrhea for the past co uple days, for which she is taking Imodium. His diarrhea is always dark/tarry, which he attributes to his iron supplements. Patient took all of his regular morning medicine today except for his oxycodone. No recent change in medications. He has no prior history of DVT/PE. He does have a family history of DVT/PE (the patient's aunt recently had pulmonary emboli in all 5 lobes). Additionally, patient has had swelling in his right lower extremity over the past few days. No recent injury to the leg, however he does say that it is "70%" occluded throughout his leg. He denies any recent smoking, tobacco use, or alcohol use. Former smoker: Quit 06/30/2009. He denies any allergies to antibiotics. Patient is chest pain-free at time of admission. Patient is hypertensive at 151/69 at time of admission; nontachycardic; nonhypoxic vitals otherwise stable. ED course: Ceftriaxone 1000 mg IV Doxycycline 100 mg IV ROS: Patient endorses headaches, productive cough, hemoptysis, CAGLE, abdominal discomfort, nausea, diarrhea, black stool (attributes to iron supplements), pain in the right knee (chronic), swelling in the right leg, and chronic neuropathy in the feet. Patient denies fever, chills, night-sweats, syncope, chest pain at present, chest palpitations, pleuritic CP, SOB at rest, vomiting, blood in the urine, burning with urination, dysuria, or numbness/tingling in the right leg. Allergies Allergy/AdvReac Type Severity Reaction Status Date / Time lisinopril Allergy Severe " TONGUE Verified 10/27/24 10:33 SWELLS"--ANGIOEDEMA lorazepam AdvReac Intermediate Hallucinati Verified 10/27/24 10:33 ons Home Medications Medication Instructions Recorded Confirmed Type acetaminophen 325 mg capsule 325 mg PO Q6H PRN Pain 08/06/18 11/06/24 History (Tylenol) lactobacillus combination no.4 3 3,000 mmu cells PO QAM 08/06/18 11/06/24 H istory billion cell capsule (Probiotic) aspirin 81 mg tablet,delayed 81 mg PO QAM 06/09/19 11/06/24 History release magnesium 200 mg tablet 400 mg PO QAM 06/09/19 11/06/24 History glucosamine sulfate 500 mg tablet 500 mg PO QAM 07/05/19 11/06/24 History (Glucosamine) levalbuterol HCl 0.63 mg/3 mL 0.63 mg (3 mL) inhalation Q6H PRN 06/08/20 11/06/24 Rx solution for nebulization shortness of breath or wheezing #360 mL ferrous sulfate 325 mg (65 mg 325 mg PO BID 03/25/21 11/06/24 History iron) tablet [place] 125 mg PO BID 08/28/22 11/06/24 History fexofenadine 180 mg tablet 180 mg PO QAM 08/28/22 11/06/24 History ([place] Allergy) sodium chloride 1 gram tablet 2,000 mg PO TID 04/05/23 11/06/24 History levothyroxine 175 mcg tablet 175 mcg PO QAM #90 tabs 11/06/23 11/06/24 Rx nalrkmr-mgyobifoaemgg-czxvvibz 250 1 tab PO Q6H PRN Migraine Headache 01/08/24 11/06/24 History mg-250 mg-65 mg tablet (Excedrin Migraine) albuterol sulfate 90 mcg/actuation 2 puff inhalation Q4H PRN 03/31/24 11/06/24 Rx aerosol inhaler Shortness Of Breath #8.5 grams amlodipine 2.5 mg tablet 2.5 mg PO QAM #90 tabs 04/30/24 11/06/24 Rx tamsulosin 0.4 mg capsule (Flomax) 0.4 mg PO QPM #90 caps 05/01/24 11/06/24 Rx folic acid 1 mg tablet 1 mg PO BID #180 tabs 05/20/24 11/06/24 Rx losartan 100 mg tablet 100 mg PO QAM #90 tabs 05/20/24 11/06/24 Rx isosorbide mononitrate 30 mg 30 mg PO QAM #90 tabs 05/21/24 11/06/24 Rx tablet,extended release 24 hr BiPap Machine #1 ea 05/29/24 10/27/24 Rx atenolol 50 mg tablet (Tenormin) 50 mg PO BID #180 tabs 06/12/24 11/06/24 Rx nortriptyline 25 mg capsule 50 mg (2 x 25 mg) PO HS #180 caps 06/12/24 11/06/24 Rx atorvastatin 80 mg tablet 80 mg PO HS #90 tabs 07/08/24 11/06/24 Rx pantoprazole 40 mg tablet,delayed 40 mg PO BID #180 tabs 07/21/24 11/06/24 Rx release (Protonix) ondansetron HCl 8 mg tablet 8 mg PO TID PRN nausea and 07/23/24 11/06/24 Rx vomiting #30 tabs fluticasone fur. 100 mcg-umeclid 1 inh inhalation QAM 90 days #90 09/08/24 11/06/24 Rx 62.5 mcg-vilant 25 mcg puffs inhalat.powder (Trelegy Ellipta) metoclopramide HCl 10 mg tablet 10 mg PO QID #120 tabs 09/22/24 11/06/24 Rx (Reglan) bumetanide 1 mg tablet 1 mg PO BID #180 tabs 09/29/24 11/06/24 Rx hydrocodone-homatropine 5 mg-1.5 1 tab PO BID PRN cough #60 tabs 10/20/2411/06 Rx mg tablet oxycodone-acetaminophen 5 mg-325 1 - 2 tab PO DAILY PRN Pain 30 10/20/24 11/06/24 Rx mg tablet (Percocet) days #60 tabs dutasteride 0.5 mg capsule 0.5 mg PO QAM 11/06/24 11/06/24 History famotidine 20 mg tablet 20 mg PO .MORNING AND LUNCH 11/06/24 11/06/24 History famotidine 40 mg tablet 40 mg PO HS 11/06/24 11/06/24 History insulin aspart U-100 100 unit/mL 0 sliding scale dose subcut UD 11/06/24 11/06/24 History (3 mL) subcutaneous pen (Novolog FlexPen U-100 Insulin aspart) insulin degludec 100 unit/mL (3 38 unit subcut BID 11/06/24 11/06/24 History mL) subcutaneous pen (Tresiba FlexTouch U-100 insulin) promethazine 25 mg tablet 25 mg PO Q6H PRN n/v 11/06/24 11/06/24 History sucralfate 1 gram tablet 1 g PO QID 11/06/24 11/06/24 History Past Med/Surg History Problem List 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 Pneumonia Unstable angina Elevated troponin Hyponatremia Hemoptysis Mitral regurgitation Incomplete emptying of bladder Urinary retention Submandibular space infection Chronic headache History of stroke Acquired blindness Hyperkalemia Acute kidney injury GERD (gastroesophageal reflux disease) BPH NOS w ur obs/LUTS Gastric ulcer BPH (benign prostatic hyperplasia) Acquired solitary kidney (Acute) Anemia of chronic disease (Acute) CAD (coronary atherosclerotic disease) (Acute) CKD (chronic kidney disease) stage 2, GFR 60-89 ml/min (Acute) Chronic constipation (Acute) Chronic cough (Acute) Depression (Acute) Diabetes mellitus type 1, uncontrolled (Acute) Essential hypertension (Acute) Gastroparesis (Acute) Neurogenic bladder (Acute) PAD (peripheral artery disease) (Acute) Peripheral neuropathy (Acute) Proteinuria (Acute) Sleep apnea (Acute) Hyperlipidemia (Chronic) Complex sleep apnea syndrome Edema Chronic venous insufficiency Hypertension Rash Atelectasis Exposure to COVID-19 virus (Acute) Multifocal pneumonia (Acute) GERD (gastroesophageal reflux disease) Chronic hyponatremia (Acute) COPD (chronic obstructive pulmonary disease) (Chronic) Hypothyroidism LUZMA (obstructive sleep apnea) bipap Medical History Aspiration pneumonia Fall Elevated bilirubin Family history of colon cancer DM type 1 (diabetes mellitus, type 1) History of angiography Premature ventricular beats Sepsis hx of History of subarachnoid hemorrhage 2013; memory/cognitive deficits (reports total of 3 strokes but only known event was in 2014 -- remaining strokes were incidental findings) CAD (coronary artery disease), [place] coronary artery PAD (peripheral artery disease) BPH (benign prostatic hyperplasia) Abnormal CT scan of lung Chronic diastolic CHF (congestive heart failure) pt unable to verify Urinary retention Migraine Microcytic anemia Hyperlipidemia Hypertension Ischemic colitis Over 10 years ago (before 2007) Angioedema Asthma uses PRN inh daily Surgical History History of esophagogastroduodenoscopy (EGD) Difficult airway for intubation reports he was told he was a difficult intubation [place] [facility] [place] says he has been intubated since then without issues; denies problems prior to that procedure, as well. History of vasectomy History of tonsillectomy and adenoidectomy History of hand surgery Hand Incision Tendon Sheath of a Finger History of rectal abscess I&D History of transurethral resection of prostate History of appendectomy History of eye surgery multiple History of ventral hernia repair H/O colonoscopy last 2019 Family History Mother Hypertension Grandfather (Paternal) Colon cancer Prostate cancer Brother Brain cancer Diabetes Bone cancer Kidney disease Lung cancer Son Diabetes Lung cancer Father Hemorrhagic stroke Hypertension Other Breast cancer No family history of adverse response to anesthesia Testicular cancer Denies family history of Ovarian cancer Myocardial infarction Social History Smoking Status: Former smoker Tobacco Type: Cigarettes Age Started Using Tobacco: 16; Age Quit Using Tobacco: 49; packs per day: 1.5; Second Hand Exposure: No; Do You Dip or Chew Tobacco: No; Hx Alcohol Use: No Hx Substance Use: No Preferred Language: German Communication Ability: Effective Communication Ability Comment: Pt. is legally blind Visual Impairment: No Limitations Hearing Ability: Hard of Hearing Charger Tester Required: No Beliefs That Will Affect Care: None marital status: Current Living Situation: Spouse current occupational status: disabled How many Children do You have: 1 Feels Safe at Home: Yes Childhood Exposure to Second-Hand Smoke: Yes Diet: regular Diet Comment: regular Dental Care, Regularly: Yes Physical Activity Frequency: Does not Exercise Seatbelt Use: always Sunscreen Use: Yes Assistive Devices: BiPap, Cane and Nebulizer Review of Systems Review of Systems: See HPI above Physical Exam Physical Exam: General: no acute distress; pleasant affect; at bedside; non-toxic appearing; well-nourished; cooperative; SpO2 97% on RA HEENT: normocephalic, atraumatic; no scleral icterus; eyes are closed; patient is blind Neck: supple; no lymphadenopathy; trachea midline Skin: warm, dry without signs of tenting; no cyanosis; no rashes, lesions, or erythema noted CV: chest wall NTP; RRR; S1/S2 normal; no murmurs/rubs/gallops; pulses intact and symmetric at radial, DP, and PT Lungs: no acute respiratory distress; symmetrical chest wall expansion; clear breath sounds across all lung bhat w/o adventitious sounds; no wheezing ABD: Soft, NTP; bruising noted on the upper abdomen; BS present; no rebound/guarding; no distention MSK: no tics or fasciculations; LEs: +1 pitting edema in the right lower extremity when compared to the left; RLE is not erythematous, and swelling is not greater than 3cm larger on the right side Neuro: A&Ox3; normal mood and affect; fluent speech; no focal deficits; patient reports sensation is intact and symmetric in the lower extremities bilaterally Results & Data Results & Data Vital Signs (Past 12 Hours) Vital Signs Temp Pulse Resp BP Pulse Ox O2 Del Method 11/06/24 09:30 65 16 151/69 H 97 Room Air 11/06/24 09:00 62 16 143/68 H 95 Room Air 11/06/24 08:30 63 14 128/47 L 96 Room Air 11/06/24 08:24 66 11/06/24 08:15 67 16 138/63 97 Room Air 11/06/24 08:14 68 20 97 Room Air 11/06/24 07:41 36.4 C L 72 20 131/51 L 99 Room Air Laboratory Results Abnormal lab results 11/06/24 Range/Units 08:00 RBC 2.87 L (4.70-6.10) M/uL Hgb 9.1 L (14.0-18.0) g/dl Hct 26.5 L (42.0-52.0) % Lymph # (Auto) 0.73 L (1.20-3.40) K/uL Sodium 126 L (136-145) mmol/L Chloride 94 L (98-107) mmol/L Glucose 387 H* (70-99(Fasting)) mg/dl Calcium 8.4 L (8.6-10.3) mg/dl Alkaline Phosphatase 161 H (34-104) U/L Troponin I High Sens 199.3 H* (0-20) pg/ml Diagnostic Findings Chest X-Ray 11/06/24 08:06 XR chest 1V portable HISTORY: 64 years-old Male productive cough COMPARISON: 09/12/2022 TECHNIQUE: AP view of the chest FINDINGS: Cardiac mediastinal and hilar silhouettes are unchanged. Mild chronic interstitial coarsening. No pneumothorax, pleural effusion or airspace consolidation. The bones of the chest appear grossly intact. IMPRESSION: No acute process. ACT 112: Negative or not required by law. The above report was generated using voice recognition software. It may contain grammatical, syntax or spelling errors. Electronically signed by: Irineo Arenas M.D. 11/06/2024 8:59 AM Abdomen/Pelvis CT 11/06/24 08:07 CT abd pelvis IV con only CLINICAL HISTORY: abdominal discomfort TECHNIQUE: Helical axial images of the abdomen and pelvis were obtained and displayed. Automated dose lowering techniques and/or adjustment according to patient size were utilized for this exam. This exam was performed with intravenous contrast. CT DOSE: 1241.87 mGy.cm COMPARISON: Comparison is made to CT abdomen pelvis 04/10/2016 FINDINGS: Lower chest: Bilateral lower lung groundglass opacities are seen superimposed on emphysema. Liver: Unremarkable. No focal lesions are seen. Gallbladder and biliary tree: No calcified gallstones. Normal caliber wall. No intra- or extrahepatic biliary ductal dilation. Pancreas: Unremarkable, no focal lesions. Spleen: Unremarkable. Adrenals: Unremarkable. Kidneys and ureters: Unremarkable. Bladder: Unremarkable. Reproductive organs: Unremarkable. Bowel: The appendix is normal. Lymph nodes Retroperitoneal: Unremarkable. Pelvic: Unremarkable. Mesenteric: Unremarkable. Peritoneum: Normal. Vessels: Atherosclerotic calcifications are seen. Abdominal wall: A fat-containing umbilical hernia is seen. Bones: Degenerative changes in the visualized spine. IMPRESSION: No acute abnormalities to explain abdominal pain. Groundglass opacities in the bilateral lung bases may represent pneumonia or other infectious/inflammatory process ACT 112: Negative or not required by law. Electronically signed by: Dharmesh Hidalgo M.D. 11/06/2024 9:58 AM ECG Additional Comments: ECG revealed NSR at 69 bpm; QTc 430 Code Status & VTE Plan Code Status Full code VTE Prophylaxis Plan VTE Prophylaxis will be ordered: Yes Supervising Physician Co-Signing Physician Notes Patient seen and examined, chart reviewed, case discussed with Jack Hernandez PA-C and I agree with the assessment and plan as above except as otherwise noted Labs and images reviewed Sam is a 64-year-old male with a history of acquired blindness, DM, hypertension, CAD, chronic headache on daily opioid treatment for many years, LUZMA on BiPAP, SAH/CVA who presents with chest pain and hemoptysis. He is 2 days of thick sputum production, coughing, and some bright red blood in the sputum. History is given from his , patient is blind and is not able to see sputum himself. He has a long history of exertional dyspnea. He denies inspiratory/pleuritic chest pain but has had chest discomfort with exertion and going up stairs. More recently in the last 2 days this occurred at rest lasted a few minutes before resolving. At time of bedside assessment he is chest pain- free his last chest pain was this morning which lasted a couple of minutes. He has noted that the chest pain is able to be reproduced with exertion over the last few days. He does have some right greater than left leg swelling. Has had some dark bowel movements, he is on iron supplements at baseline. No abdominal pain at time of assessment. In the ER his troponin is elevated, EKG is without acute territorial signs of ischemia. Troponin is with mild rise 199 increasing to 231 on 2-hour recheck. Concern for both type II ischemia with suspected underlying pneumonia on CT imaging. Differential also includes PE with suspicion both due to hemoptysis and his right lower extremity swelling. He has already received a dye load today with a CTabdomen and pelvis. He is not tachycardic, hypoxic, or hypotensive. Will obtain a stat Doppler of the right lower extremity to evaluate for DVT, and also a stat echo to evaluate for any wall motion change in addition to RVSP. Patient has a history of spontaneous/nontraumatic SAH but this is many years in the past. Increased risk of bleeding with hemoptysis. Suspect his dark stool is from iron and BUN is normal suggesting against UGIB and CT-A/P did not show active extravasation. Overall feel that his elevated troponin is due to demand ischemia and with underlying pneumonia. He does not have exponential rise in his troponin and his EKG does not have acute changes. His chest pain-free at time of attending assessment. Given this feel risks outweigh the benefit of anticoagulation at this time. Will trend troponin, obtain echo, and Dopplers as noted. Agree with above PG Care Time/CCT Total # of Minutes Spent Total Time Spent with Patient: Total time spent is greater than 50% in coordination of care (as documented) at patient's floor/unit and/or counseling patient: Coding [place] [address] INT INP/OBS CARE 75MIN Patient Type Established History Comprehensive Exam Comprehensive Medical Decision Making High Complexity Diagnoses Hemoptysis R04.2 Pneumonia J18.9 Unstable angina I20.0 Uncontrolled type 1 diabetes mellitus with hyperglycemia E10.65 Glycemic state: with hyperglycemia Hyponatremia E87.1 Elevated troponin R79.89 Blindness H54.7 (4) Diabetes mellitus type 1, uncontrolled Glycemic state: with hyperglycemia Qualified Code(s): E10.65 - Type 1 diabetes mellitus with hyperglycemia
[2024-11-06] MEDS: cefTRIAXone SODIUM 1,000 MG/50 ML BAG IV STA (11:00)
[2024-11-06 11:48] LABS: Adenovirus PCR Not Detected (NotDetected); Bordetella parapertussis PCR Not Detected (NotDetected); Bordetella pertussis PCR Not Detected (NotDetected); Chlamydia pneumoniae PCR Not Detected (NotDetected); Coronavirus 229E PCR Not Detected (NotDetected); Coronavirus CoV-2 (COVID19)PCR Not Detected (NotDetected); Coronavirus HKU1 PCR Not Detected (NotDetected); Coronavirus NL63 PCR Not Detected (NotDetected); Coronavirus OC43PCR Not Detected (NotDetected); Human Metapneumovirus PCR Not Detected (NotDetected); Influenza A PCR Not Detected (NotDetected); Influenza B PCR Not Detected (NotDetected); Mycoplasma pneumoniae PCR Not Detected (NotDetected); Parainfluenza Virus 1 PCR Not Detected (NotDetected); Parainfluenza Virus 2 PCR Not Detected (NotDetected); Parainfluenza Virus 3 PCR Not Detected (NotDetected); Parainfluenza Virus 4 PCR Not Detected (NotDetected); Respiratory Syncytial VirusPCR Not Detected (NotDetected); Rhinovirus/Enterovirus PCR Not Detected (NotDetected)
[2024-11-06] MEDS: DOXYCYCLINE HYCLATE 100 MG in DEXTROSE 5% MINI-B 100 ML IV STA (12:04)
--- NOTE | 2024-11-06 12:22 | Emergency Department Note ---
ED Provider Note History of Present Illness Chief Complaint: GI Assessment Stated Complaint: COUGH UP BLOOD Time Seen by Provider: 11/06/24 07:52 Source: patient Mode of arrival: ambulatory Limitations: no limitations Patient is a 64-year-old male who presents to the emergency department with complaints of cough, shortness of breath with exertion, and hemoptysis. Patient states that for the last 2 days he has been experiencing blood straining in his sputum. Patient notes that this morning there is a significantly larger amount of bright red blood in his sputum. Patient also notes some upper abdominal discomfort. Patient denies chest pain whenever he sitting still but does note that he has some exertional shortness of breath and chest pain with exertion. Patient denies any at this moment. Home Medications Medication Instructions Recorded Confirmed Type acetaminophen 325 mg capsule 325 mg PO Q6H PRN Pain 08/06/18 11/06/24 History (Tylenol) lactobacillus combination no.4 3 3,000 mmu cells PO QAM 08/06/18 11/06/24 History billion cell capsule (Probiotic) aspirin 81 mg tablet,delayed 81 mg PO QAM 06/09/19 11/06/24 History release magnesium 200 mg tablet 400 mg PO QAM 06/09/19 11/06/24 History glucosamine sulfate 500 mg tablet 500 mg PO QAM 07/05/19 11/06/24 History (Glucosamine) levalbuterol HCl 0.63 mg/3 mL 0.63 mg (3 mL) inhalation Q6H PRN 06/08/20 11/06/24 Rx solution for nebulization shortness of breath or wheezing #360 mL ferrous sulfate 325 mg (65 mg 325 mg PO BID 03/25/21 11/06/24 History iron) tablet [place] 125 mg PO BID 08/28/22 11/06/24 History fexofenadine 180 mg tablet 180 mg PO QAM 08/28/22 11/06/24 History ([place] Allergy) sodium chloride 1 gram tablet 2,000 mg PO TID 04/05/23 11/06/24 History levothyroxine 175 mcg tablet 175 mcg PO QAM #90 tabs 11/06/23 11/06/24 Rx uyetjgh-gwfskrpvpscnv-sjarykqb 250 1 tab PO Q6H PRN Migraine Headache 01/08/24 11/06/24 History mg-250 mg-65 mg tablet (Excedrin Migraine) albuterol sulfate 90 mcg/actuation 2 puff inhalation Q4H PRN 03/31/24 11/06/24 Rx aerosol inhaler Shortness Of Breath #8.5 grams amlodipine 2.5 mg tablet 2.5 mg PO QAM #90 tabs 04/30/24 11/06/24 Rx tamsulosin 0.4 mg capsule (Flomax) 0.4 mg PO QPM #90 caps 05/01/24 11/06/24 Rx folic acid 1 mg tablet 1 mg PO BID #180 tabs 05/20/24 11/06/24 Rx losartan 100 mg tablet 100 mg PO QAM #90 tabs 05/20/24 11/06/24 Rx isosorbide mononitrate 30 mg 30 mg PO QAM #90 tabs 05/21/24 11/06/24 Rx tablet,extended release 24 hr BiPap Machine #1 ea 05/29/24 10/27/24 Rx atenolol 50 mg tablet (Tenormin) 50 mg PO BID #180 tabs 06/12/24 11/06/24 Rx nortriptyline 25 mg capsule 50 mg (2 x 25 mg) PO HS #180 caps 06/12/24 11/06/24 Rx atorvastatin 80 mg tablet 80 mg PO HS #90 tabs 07/08/24 11/06/24 Rx pantoprazole 40 mg tablet,delayed 40 mg PO BID #180 tabs 07/21/24 11/06/24 Rx release (Protonix) ondansetron HCl 8 mg tablet 8 mg PO TID PRN nausea and 07/23/24 11/06/24 Rx vomiting #30 tabs fluticasone fur. 100 mcg-umeclid 1 inh inhalation QAM 90 days #90 09/08/24 11/06/24 Rx 62.5 mcg-vilant 25 mcg puffs inhalat.powder (Trelegy Ellipta) metoclopramide HCl 10 mg tablet 10 mg PO QID #120 tabs 09/22/24 11/06/24 Rx (Reglan) bumetanide 1 mg tablet 1 mg PO BID #180 tabs 09/29/24 11/06/24 Rx hydrocodone-homatropine 5 mg-1.5 1 tab PO BID PRN cough #60 tabs 10/20/24 11/06/24 Rx mg tablet oxycodone-acetaminophen 5 mg-325 1 - 2 tab PO DAILY PRN Pain 30 10/20/24 11/06/24 Rx mg tablet (Percocet) days #60 tabs dutasteride 0.5 mg capsule 0.5 mg PO QAM 11/06/24 11/06/24 History famotidine 20 mg tablet 20 mg PO .MORNING AND LUNCH 11/06/24 11/06/24 History famotidine 40 mg tablet 40 mg PO HS 11/06/24 11/06/24 History insulin aspart U-100 100 unit/mL 0 sliding scale dose subcut UD 11/06/24 11/06/24 History (3 mL) subcutaneous pen (Novolog FlexPen U-100 Insulin aspart) insulin degludec 100 unit/mL (3 38 unit subcut BID 11/06/24 11/06/24 History mL) subcutaneous pen (Tresiba FlexTouch U-100 insulin) promethazine 25 mg tablet 25 mg PO Q6H PRN n/v 11/06/24 11/06/24 History sucralfate 1 gram tablet 1 g PO QID 11/06/24 11/06/24 History Allergies Allergy/AdvReac Type Severity Reaction Status Date / Time lisinopril Allergy Severe " TONGUE Verified 10/27/24 10:33 SWELLS"--ANGIOEDEMA lorazepam AdvReac Intermediate Hallucinati Verified 10/27/24 10:33 ons Past Med/Surg History Problem List (Updated 11/06/24 @ 17:21 by PATRIC Duran) 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 Pneumonia Unstable angina Elevated troponin (Acute) Hyponatremia Hemoptysis (Acute) Mitral regurgitation Incomplete emptying of bladder Urinary retention Submandibular space infection Chronic headache History of stroke Acquired blindness Hyperkalemia Acute kidney injury GERD (gastroesophageal reflux disease) BPH NOS w ur obs/LUTS Gastric ulcer BPH (benign prostatic hyperplasia) Acquired solitary kidney (Acute) Anemia of chronic disease (Acute) CAD (coronary atherosclerotic disease) (Acute) CKD (chronic kidney disease) stage 2, GFR 60-89 ml/min (Acute) Chronic constipation (Acute) Chronic cough (Acute) Depression (Acute) Diabetes mellitus type 1, uncontrolled (Acute) Essential hypertension (Acute) Gastroparesis (Acute) Neurogenic bladder (Acute) PAD (peripheral artery disease) (Acute) Peripheral neuropathy (Acute) Proteinuria (Acute) Sleep apnea (Acute) Hyperlipidemia (Chronic) Complex sleep apnea syndrome Edema Chronic venous insufficiency Hypertension Rash Atelectasis Exposure to COVID-19 virus (Acute) Multifocal pneumonia (Acute) GERD (gastroesophageal reflux disease) Chronic hyponatremia (Acute) COPD (chronic obstructive pulmonary disease) (Chronic) Hypothyroidism LUZMA (obstructive sleep apnea) bipap Medical History Aspiration pneumonia Fall Elevated bilirubin Family history of colon cancer DM type 1 (diabetes mellitus, type 1) History of angiography Premature ventricular beats Sepsis hx of History of subarachnoid hemorrhage 2013; memory/cognitive deficits (reports total of 3 strokes but only known event was in 2013 -- remaining strokes were incidental findings) CAD (coronary artery disease), [place] coronary artery PAD (peripheral artery disease) BPH (benign prostatic hyperplasia) Abnormal CT scan of lung Chronic diastolic CHF (congestive heart failure) pt unable to verify Urinary retention Migraine Microcytic anemia Hyperlipidemia Hypertension Ischemic colitis Over 10 years ago (before 2007) Angioedema Asthma uses PRN inh daily Surgical History History of esophagogastroduodenoscopy (EGD) Difficult airway for intubation reports he was told he was a difficult intubation [place] [facility] [place] says he has been intubated since then without issues; denies problems prior to that procedure, as well. History of vasectomy History of tonsillectomy and adenoidectomy History of hand surgery Hand Incision Tendon Sheath of a Finger History of rectal abscess I&D History of transurethral resection of prostate History of appendectomy History of eye surgery multiple History of ventral hernia repair H/O colonoscopy last 2019 Family History Mother Hypertension Grandfather (Paternal) Colon cancer Prostate cancer Brother Brain cancer Diabetes Bone cancer Kidney disease Lung cancer Son Diabetes Lung cancer Father Hemorrhagic stroke Hypertension Other Breast cancer No family history of adverse response to anesthesia Testicular cancer Denies family history of Ovarian cancer Myocardial infarction Social History Smoking Status: Former smoker Tobacco Type: Cigarettes Age Started Using Tobacco: 16; Age Quit Using Tobacco: 49; packs per day: 1.5; Second Hand Exposure: No; Do You Dip or Chew Tobacco: No; Hx Alcohol Use: Yes Alcohol type: hard liquor Hx Substance Use: No Preferred Language: Maori Communication Ability: Effective Communication Ability Comment: Pt. is legally blind Visual Impairment: No Limitations Hearing Ability: Hard of Hearing Web Marketing Assistant Required: No Beliefs That Will Affect Care: None marital status: Current Living Situation: Spouse current occupational status: disabled How many Children do You have: 1 Feels Safe at Home: Yes Safety Concerns: Feels Safe At This Time Childhood Exposure to Second-Hand Smoke: Yes Diet: regular Diet Comment: regular Dental Care, Regularly: Yes Physical Activity Frequency: Does not Exercise Seatbelt Use: always Sunscreen Use: Yes Assistive Devices: Other Assistive Devices Comment: white cane Physical Exam Vital Signs Vital Signs - 24 hr 11/06/24 07:41 11/06/24 08:14 11/06/24 08:15 Temperature 36.4 C L Temperature Source Temporal Artery Scan Pulse Rate 72 68 67 Pulse Rate from SpO2 Sensor 67 Pulse Rhythm Regular Respiratory Rate 20 20 16 Respiratory Effort / Characteristics Non-Labored Spontaneous Respiratory Depth Normal Blood Pressure 131/51 L 138/63 Blood Pressure Mean 77 88 Pulse Oximetry 99 97 97 Oxygen Delivery Method Room Air Room Air Room Air Sepsis Recent Fever Within 48 Hours No Sepsis New/Unexplained Change in Mental Status N/A Sepsis Action Taken by Nursing No Action Required 11/06/24 08:24 11/06/24 08:30 11/06/24 09:00 Temperature Temperature Source Pulse Rate 66 63 62 Pulse Rate from SpO2 Sensor 63 62 Pulse Rhythm Respiratory Rate 14 16 Respiratory Effort / Characteristics Respiratory Depth Blood Pressure 128/47 L 143/68 H Blood Pressure Mean 74 93 Pulse Oximetry 96 95 Oxygen Delivery Method Room Air Room Air Sepsis Recent Fever Within 48 Hours Sepsis New/Unexplained Change in Mental Status Sepsis Action Taken by Nursing 11/06/24 09:30 11/06/24 10:42 11/06/24 11:00 Temperature Temperature Source Pulse Rate 65 65 Pulse Rate from SpO2 Sensor 65 65 Pulse Rhythm Respiratory Rate 16 16 Respiratory Effort / Characteristics Respiratory Depth Blood Pressure 151/69 H 141/74 H 152/71 H Blood Pressure Mean 96 96 124 Pulse Oximetry 97 98 Oxygen Delivery Method Room Air Room Air Sepsis Recent Fever Within 48 Hours Sepsis New/Unexplained Change in Mental Status Sepsis Action Taken by Nursing 11/06/24 11:12 11/06/24 11:30 11/06/24 12:09 Temperature Temperature Source Pulse Rate 65 65 Pulse Rate from SpO2 Sensor 64 66 Pulse Rhythm Respiratory Rate 16 18 Respiratory Effort / Characteristics Respiratory Depth Blood Pressure 150/71 H Blood Pressure Mean 117 Pulse Oximetry 97 98 Oxygen Delivery Method Room Air Room Air Sepsis Recent Fever Within 48 Hours Sepsis New/Unexplained Change in Mental Status Sepsis Action Taken by Nursing 11/06/24 12:23 Temperature Temperature Source Pulse Rate 65 Pulse Rate from SpO2 Sensor Pulse Rhythm Respiratory Rate Respiratory Effort / Characteristics Respiratory Depth Blood Pressure Blood Pressure Mean Pulse Oximetry Oxygen Delivery Method Sepsis Recent Fever Within 48 Hours Sepsis New/Unexplained Change in Mental Status Sepsis Action Taken by Nursing VITAL SIGNS - Vital signs and nursing notes were reviewed. GENERAL -64-year-old male appearing their stated age, who is in no acute distress. Communicates well with provider and answers questions appropriately. Patient's is at bedside. HEAD - Normocephalic, Atraumatic. EARS - No deformities of external structures noted on gross examination bilaterally. NECK - Neck with FROM. Supple to palpation. No lymphadenopathy noted. LUNGS - Chest wall symmetric without accessory muscle use, intercostals retractions, or central cyanosis. Breath sounds are clear but diminished throughout all bhat. No wheezes, rales, or rhonchi appreciated. Patient does have a productive cough with hemoptysis. CARDIAC -regular rate and rhythm, no murmur, rubs, or gallops appreciated. EXTREMITIES -trace edema present bilaterally. +5/5 strength noted in UE/LE bilaterally. NEUROLOGIC -Sensory intact to light touch throughout. PSYCH - A&Ox3 and cooperates fully with examiner. Pt is very pleasant and interacts well with examiner Course Administered Medications Insulin Aspart (Insulin Aspart Per Unit Charge) 0 units SC ACHS [facility] Stop: 12/06/24 16:29 Last Admin: 11/06/24 16:49 Dose: 7 units Documented By: DLN Co-signed By: MALISSA Metoclopramide HCl (Metoclopramide Hcl 10 Mg Tablet) 10 mg PO QID [facility] Stop: 12/06/24 16:59 Last Admin: 11/06/24 16:22 Dose: 10 mg Documented By: RAFN Sodium Chloride (Sodium Chloride 1 Gm Tablet) 1 gm PO DAILY@1200,1700 [facility] Stop: 12/06/24 16:59 Last Admin: 11/06/24 16:22 Dose: 1 gm Documented By: JAYLEEN Sucralfate (Sucralfate 1 Gm Tab) 1 gm PO QID [facility] Stop: 12/06/24 16:59 Last Admin: 11/06/24 16:23 Dose: 1 gm Documented By: JAYLEEN Discontinued Medications Ceftriaxone Sodium (Rocephin) 1,000 mg in 50 mls @ 100 mls/hr IV NOW STA Stop: 11/06/24 11:07 Last Infusion: 11/06/24 11:43 Dose: Infused Documented By: Admin: 11/06/24 11:00 Dose: 100 mls/hr Documented By: Doxycycline Hyclate 100 mg/ (Dextrose) 100 mls @ 50 mls/hr IV NOW STA Stop: 11/06/24 12:37 Last Infusion: 11/06/24 14:27 Dose: Infused Documented By: Admin: 11/06/24 12:04 Dose: 50 mls/hr Documented By: Ioversol (Optiray 320 100ml) 94 ml IV ONCE ONE Stop: 11/06/24 09:11 Last Admin: 11/06/24 09:11 Dose: 94 ml Documented By: VANDANA Oxycodone/Acetaminophen (Oxycodone/Acetaminophen 5mg/325mg Tab) Confirm Administered Dose 1 tab PO .STK-MED ONE Stop: 11/06/24 14:16 Last Admin: 11/06/24 14:16 Dose: 1 tab Documented By: JACKIE Medical Decision Making Differential Diagnosis Differential diagnosis includes acute coronary syndrome, musculoskeletal pain, hemoptysis, SD, upper respiratory viral infection, bleeding ulcer, pneumonia, among others. Medical Records Attestation: I reviewed the patient's medical records. Home Medications was personally reviewed by dc Laboratory Data Attestation: I reviewed the patient's lab results. 11/06/24 08:00 11/06/24 08:00 Lab Results 11/06/24 11/06/24 11/06/24 Range/Units 08:00 10:50 10:57 WBC 6.16 (4.8-10.8) K/ul RBC 2.87 L (4.70-6.10) M/uL Hgb 9.1 L (14.0-18.0) g/dl Hct 26.5 L (42.0-52.0) % MCV 92.3 (80.0-100.0) fL MCH 31.7 (25.0-34.0) pg MCHC 34.3 (32.0-36.0) g/dL RDW Std Deviation 42.7 (36.4-46.3) fL RDW Coeff of Analisa 12.7 (11.5-14.5) % Plt Count 244 (130-400) K/uL MPV 10.3 (9.4-12.4) fL Immature Gran % (Auto) 0.2 % Neut % (Auto) 79.1 % Lymph % (Auto) 11.9 % [place] % (Auto) 7.5 % Eos % (Auto) 1.0 % Baso % (Auto) 0.3 % Neut # (Auto) 4.88 (1.40-6.50) K/uL Lymph # (Auto) 0.73 L (1.20-3.40) K/uL [place] # (Auto) 0.46 (0.11-0.59) K/uL Eos # (Auto) 0.06 (0.00-0.50) K/uL Baso # (Auto) 0.02 (0.00-0.20) K/uL Immature Gran # (Auto) 0.01 (0.01-0.20) K/uL PT 10.2 (9.0-12.0) Seconds INR 0.9 (0.9-1.1) APTT 29 (21-31) Seconds PTT Ratio 1.1 Sodium 126 L (136-145) mmol/L Potassium 4.4 (3.5-5.1) mmol/L Chloride 94 L (98-107) mmol/L Carbon Dioxide 25 (21-32) mmol/L Anion Gap 7 (3-11) BUN 15 (6-23) mg/dl Creatinine 0.98 (0.6-1.4) mg/dl Est Cr Clr Drug Dosing Not Reportable eGFR 85.57 BUN/Creatinine Ratio 15.3 (10-20) Glucose 387 H* (70-99(Fasting)) mg/dl Calcium 8.4 L (8.6-10.3) mg/dl Total Bilirubin 0.5 (0.2-1.0) mg/dl AST 20 (13-39) U/L ALT 35 (7-52) U/L Alkaline Phosphatase 161 H (34-104) U/L Troponin I High Sens 199.3 H* 231.0 H* (0-20) pg/ml Total Protein 6.6 (6.0-8.3) gm/dl Albumin 3.7 (3.4-5.0) gm/dl Globulin 2.9 (2.5-4.0) gm/dl Albumin/Globulin Ratio 1.3 (0.9-2) Lipase 20 (11-82) U/L Urine Color Urine Appearance (Clear) Urine pH (4.5-7.5) Ur Specific [place] (1.000-1.030) Urine Protein (Negative) Urine Glucose (UA) (Negative) Urine Ketones (Negative) Urine Blood (Negative) Urine Nitrite (Negative) Urine Bilirubin (Negative) Urine Urobilinogen (Negative) Ur Leukocyte Esterase (Negative) Adenovirus (PCR) Not Detected (NotDetected) B. pertussis DNA (PCR) Not Detected (NotDetected) B.parapertussis DNA PCR Not Detected (NotDetected) C. pneumoniae DNA (PCR) Not Detected (NotDetected) Coronavirus OC43 (PCR) Not Detected (NotDetected) Coronavirus HKU1 (PCR) Not Detected (NotDetected) Coronavirus 229E (PCR) Not Detected (NotDetected) SARS-CoV-2 (PCR) Not Detected (NotDetected) Coronavirus NL63 (PCR) Not Detected (NotDetected) Human Metapneumovir PCR Not Detected (NotDetected) Influenza Type A (PCR) Not Detected (NotDetected) Influenza Type B (PCR) Not Detected (NotDetected) M. pneumoniae (PCR) Not Detected (NotDetected) Parainfluenza 1 (PCR) Not Detected (NotDetected) Parainfluenza 2 (PCR) Not Detected (NotDetected) Parainfluenza 3 (PCR) Not Detected (NotDetected) Parainfluenza 4 (PCR) Not Detected (NotDetected) RSV (PCR) Not Detected (NotDetected) Entero/Rhino (PCR) Not Detected (NotDetected) 11/06/24 Range/Units 12:05 WBC (4.8-10.8) K/ul RBC (4.70-6.10) M/uL Hgb (14.0-18.0) g/dl Hct (42.0-52.0) % MCV (80.0-100.0) fL MCH (25.0-34.0) pg MCHC (32.0-36.0) g/dL RDW Std Deviation (36.4-46.3) fL RDW Coeff of Analisa (11.5-14.5) % Plt Count (130-400) K/uL MPV (9.4-12.4) fL Immature Gran % (Auto) % Neut % (Auto) % Lymph % (Auto) % [place] % (Auto) % Eos % (Auto) % Baso % (Auto) % Neut # (Auto) (1.40-6.50) K/uL Lymph # (Auto) (1.20-3.40) K/uL [place] # (Auto) (0.11-0.59) K/uL Eos # (Auto) (0.00-0.50) K/uL Baso # (Auto) (0.00-0.20) K/uL Immature Gran # (Auto) (0.01-0.20) K/uL PT (9.0-12.0) Seconds INR (0.9-1.1) APTT (21-31) Seconds PTT Ratio Sodium (136-145) mmol/L Potassium (3.5-5.1) mmol/L Chloride (98-107) mmol/L Carbon Dioxide (21-32) mmol/L Anion Gap (3-11) BUN (6-23) mg/dl Creatinine (0.6-1.4) mg/dl Est Cr Clr Drug Dosing eGFR BUN/Creatinine Ratio (10-20) Glucose (70-99(Fasting)) mg/dl Calcium (8.6-10.3) mg/dl Total Bilirubin (0.2-1.0) mg/dl AST (13-39) U/L ALT (7-52) U/L Alkaline Phosphatase (34-104) U/L Troponin I High Sens (0-20) pg/ml Total Protein (6.0-8.3) gm/dl Albumin (3.4-5.0) gm/dl Globulin (2.5-4.0) gm/dl Albumin/Globulin Ratio (0.9-2) Lipase (11-82) U/L Urine Color Yellow Urine Appearance Clear (Clear) Urine pH 7.5 (4.5-7.5) Ur Specific [place] 1.012 (1.000-1.030) Urine Protein Negative (Negative) Urine Glucose (UA) 1+ H (Negative) Urine Ketones Negative (Negative) Urine Blood Negative (Negative) Urine Nitrite Negative (Negative) Urine Bilirubin Negative (Negative) Urine Urobilinogen Negative (Negative) Ur Leukocyte Esterase Negative (Negative) Adenovirus (PCR) (NotDetected) B. pertussis DNA (PCR) (NotDetected) B.parapertussis DNA PCR (NotDetected) C. pneumoniae DNA (PCR) (NotDetected) Coronavirus OC43 (PCR) (NotDetected) Coronavirus HKU1 (PCR) (NotDetected) Coronavirus 229E (PCR) (NotDetected) SARS-CoV-2 (PCR) (NotDetected) Coronavirus NL63 (PCR) (NotDetected) Human Metapneumovir PCR (NotDetected) Influenza Type A (PCR) (NotDetected) Influenza Type B (PCR) (NotDetected) M. pneumoniae (PCR) (NotDetected) Parainfluenza 1 (PCR) (NotDetected) Parainfluenza 2 (PCR) (NotDetected) Parainfluenza 3 (PCR) (NotDetected) Parainfluenza 4 (PCR) (NotDetected) RSV (PCR) (NotDetected) Entero/Rhino (PCR) (NotDetected) Imaging Data Radiologist's Impression: Chest X-Ray 11/06/24 08:06 XR chest 1V portable HISTORY: 64 years-old Male productive cough COMPARISON: 09/12/2022 TECHNIQUE: AP view of the chest FINDINGS: Cardiac mediastinal and hilar silhouettes are unchanged. Mild chronic interstitial coarsening. No pneumothorax, pleural effusion or airspace consolidation. The bones of the chest appear grossly intact. IMPRESSION: No acute process. ACT 112: Negative or not required by law. The above report was generated using voice recognition software. It may contain grammatical, syntax or spelling errors. Electronically signed by: Irineo Arenas M.D. 11/06/2024 8:59 AM Abdomen/Pelvis CT 11/06/24 08:07 CT abd pelvis IV con only CLINICAL HISTORY: abdominal discomfort TECHNIQUE: Helical axial images of the abdomen and pelvis were obtained and displayed. Automated dose lowering techniques and/or adjustment according to patient size were utilized for this exam. This exam was performed with intravenous contrast. CT DOSE: 1241.87 mGy.cm COMPARISON: Comparison is made to CT abdomen pelvis 04/10/2016 FINDINGS: Lower chest: Bilateral lower lung groundglass opacities are seen superimposed on emphysema. Liver: Unremarkable. No focal lesions are seen. Gallbladder and biliary tree: No calcified gallstones. Normal caliber wall. No intra- or extrahepatic biliary ductal dilation. Pancreas: Unremarkable, no focal lesions. Spleen: Unremarkable. Adrenals: Unremarkable. Kidneys and ureters: Unremarkable. Bladder: Unremarkable. Reproductive organs: Unremarkable. Bowel: The appendix is normal. Lymph nodes Retroperitoneal: Unremarkable. Pelvic: Unremarkable. Mesenteric: Unremarkable. Peritoneum: Normal. Vessels: Atherosclerotic calcifications are seen. Abdominal wall: A fat-containing umbilical hernia is seen. Bones: Degenerative changes in the visualized spine. IMPRESSION: No acute abnormalities to explain abdominal pain. Groundglass opacities in the bilateral lung bases may represent pneumonia or other infectious/inflammatory process ACT 112: Negative or not required by law. Electronically signed by: Dharmesh Hidalgo M.D. 11/06/2024 9:58 AM Venous Doppler Study 11/06/24 11:41 US venous doppler LE RT HISTORY: 64 years-old Male DVT r/o COMPARISON: 05/10/2017 TECHNIQUE: Multiple real-time sonographic images of the right lower extremity deep venous structures were obtained assessing grayscale appearance, color and spectral flow. FINDINGS: Normal flow, compressibility, phasicity and augmentation. IMPRESSION: No sonographic evidence of deep venous thrombosis. ACT 112: Negative or not required by law. The above report was generated using voice recognition software. It may contain grammatical, syntax or spelling errors. Electronically signed by: Irineo Arenas M.D. 11/06/2024 2:59 PM [facility] Narrative Patient is a 64-year-old male who presents to the emergency department with complaints of cough, shortness of breath with exertion, and hemoptysis. Patient states that for the last 2 days he has been experiencing blood straining in his sputum. Patient notes that this morning there is a significantly larger amount of bright red blood in his sputum. Patient also notes some upper abdominal discomfort. Patient denies chest pain whenever he sitting still but does note that he has some exertional shortness of breath and chest pain with exertion. Patient denies any at this moment. Patient was evaluated by myself and findings are noted in the physical exam above. Patient was ordered IV placement, lab work including a troponin, EKG, chest x-ray, and a CT of the abdomen pelvis. Patient's lab work resulted with a normal white blood cell count of 6.16. Patient did have a low hemoglobin of 9.1. Patient tends to trend mildly anemic though notably his hemoglobin is 9.1 and hematocrit is 26.5 with complaints of hemoptysis. Patient does have a low sodium of 126 which again he trends to be hyponatremic and takes sodium tablets daily. Patient's blood Glucose is 387. Patient states he did take his insulin today and 387 is a typical number for him at this time of day. Patient has been following with his primary care physician to manage his diabetes and has had a lot of med changes due to medication availability recently. Patient also had an elevated troponin level of 199.3. Patient's upper respiratory viral panel resulted and was negative. Patient had a urinalysis that also resulted unremarkable. Patient also had a sputum culture ordered as he was coughing up blood-tinged sputum. Patient had a repeat troponin level drawn and the repeat level was elevated at 231. Patient had a chest x-ray completed which was negative for any acute process. No evidence of pneumothorax, pleural effusion, or airspace consolidation. Patient did also have a CT of the abdomen and pelvis that was completed and interpreted by radiology to show no acute abnormalities to explain his upper abdominal pain however did note groundglass opacities in the bilateral lung bases that likely represents pneumonia. Patient was ordered a dose of Rocephin and doxycycline at this time. I then reached out to [facility] hospitalist group to admit the patient here in the hospital for further evaluation and management of his troponin levels and need for IV antibiotics for his pneumonia. I talked to Dr. Abdalla and gave him a full report on the patient including his chief complaint, current status, current vitals and the results of his lab work and imaging. Dr. Abdalla accepted the patient under his service. Please refer them out any hospitalist group's documentation for further evaluation and management of this patient. Impression Chronic hyponatremia, Multifocal pneumonia, Hemoptysis, Elevated troponin Discharge Plan Visit Data Chief Complaint: GI Assessment Stated Complaint: COUGH UP BLOOD ED Provider: [facility] ED Midlevel Provider: Hiral Schaefer Discharge Problem: Chronic hyponatremia, Multifocal pneumonia, Hemoptysis, Elevated troponin Patient Disposition: Admitted As Inpatient Discharge Instructions Interventions: ED Discharge Assessment Last Done: 11/06/24 14:34
[2024-11-06 12:49] LABS: Appearance Urine Clear (Clear); Bilirubin Urine Negative (Negative); Blood Urine Negative (Negative); Color Urine Yellow; Glucose Urine UA 1+ (Negative); Ketones Urine Negative (Negative); Leukocyte Esterase Urine Negative (Negative); Nitrite Urine Negative (Negative); Protein Urine Negative (Negative); Specific Gravity Urine 1.012 (1.000-1.030); Urobilinogen Urine Negative (Negative); pH Urine 7.5 (4.5-7.5)
[2024-11-06] MEDS ORDERED: GLUCOSE 10 TAB/TUBE PO PRN (13:29)
[2024-11-06] MEDS ORDERED: DEXTROSE 50% 50 ML SYRINGE IV PRN (13:29)
[2024-11-06] MEDS ORDERED: CARBOHYDRATES FOR HYPOGLYCEMIA PO PRN (13:29)
[2024-11-06] MEDS ORDERED: GLUCAGON FOR INJ 1 MG VIAL SQ PRN (13:29)
[2024-11-06] MEDS ORDERED: GLUCOSE 40% GEL 15 GM TUBE PO PRN (13:29)
[2024-11-06] MEDS: oxyCODONE/ACETAMINOPHEN 5mg/325mg TAB PO ONE (14:16)
[2024-11-06] MEDS ORDERED: LEVALBUTEROL HCL 0.63 MG/3 ML NEB INH PRN (14:48)
[2024-11-06] MEDS ORDERED: PHARMACY GLYCEMIC MGMT CONSULT PRN (14:48)
--- NOTE | 2024-11-06 15:00 | Ultrasound Report ---
US venous doppler LE RT HISTORY: 64 years-old Male DVT r/o COMPARISON: 05/10/2017 TECHNIQUE: Multiple real-time sonographic images of the right lower extremity deep venous structures were obtained assessing grayscale appearance, color and spectral flow. FINDINGS: Normal flow, compressibility, phasicity and augmentation. IMPRESSION: No sonographic evidence of deep venous thrombosis. ACT 112: Negative or not required by law. The above report was generated using voice recognition software. It may contain grammatical, syntax o r spelling errors. Electronically signed by: Irineo Arenas M.D. 11/06/2024 2:59 PM
--- NOTE | 2024-11-06 15:27 | Pharmacy Report ---
Pharmacy Glycemic Short Note 2 - Date of Service November 06, 2024 - Glycemic Short BSG Results (Last 24 hours): 11/06/24 11/06/24 08:00 13:30 Glucose 387 H* POC Glucose 119 H OUTPATIENT ANTIDIABETIC REGIMEN: * Tresiba 38 units SC BID * Novolog * Correction factor: 2 units for every 20 mg/dL above 150 mg/dL (similar to correction factor of 10 mg/dL/unit here) * Carb ratio: 1 unit for every 4 g CHO ASSESSMENT: * 64 yo M with T1DM known to our glycemic service from two admissions in August 2022. Patient has history of inpatient hypoglycemia while on home basal regimen. May also require tighter parameters at breakfast as compared to lunch, dinner, bedtime. * Will initiate Lantus at lower than home dose based on history. * Will start Novolog regimen similar to previous admission (which is also si milar to reported home regimen) but slightly looser for now, pending BSG trend PLAN FOR INPATIENT GLYCEMIC CONTROL: * Basal insulin * Lantus 15-20 units SQ x1 tonight. Re-assess in AM. * Bolus insulin * NovoLog per scale ACHS or Q6hrs while NPO * Goal Range: Low 110 mg/dL - High 140 mg/dL * Correction Factor: 15 mg/dL/unit * Nutritional / Prandial insulin per carb ratio of 1 unit per 4 grams CHO consumed
[2024-11-06] MEDS: METOCLOPRAMIDE HCL 10 MG TABLET PO SCH (16:22)
[2024-11-06] MEDS: SODIUM CHLORIDE 1 GM TABLET PO SCH ×2 (16:22→20:13)
[2024-11-06] MEDS: SUCRALFATE 1 GM TAB PO SCH (16:23)
[2024-11-06] MEDS: INSULIN ASPART PER UNIT CHARGE SC SCH (16:49)
--- NOTE | 2024-11-06 17:05 | XCELERA ---
[id number] \\[id number]
--- NOTE | 2024-11-06 17:09 | Cardiology Consultation ---
Date of Consultation November 06, 2024 Assessment & Plan (1) Elevated troponin: (2) CAD (coronary atherosclerotic disease): (3) Hypertension: (4) Chest pain: (5) Edema: (6) Chronic venous insufficiency: (7) Hemoptysis: Plan ASSESSMENT/PLAN: 1. Elevated troponin: Troponin very mildly elevated and has already peaked. Suspect that this is not acute coronary syndrome but may be related to demand ischemia in the setting of pneumonia as identified by primary hospitalist ethel ledesma. He likely has coronary disease given his multiple risk factors including longstanding diabetes. Given that he presented with hemoptysis, recommend ongoing risk factor modification for now. If he should have symptoms concerning for angina, objective findings on ECG, or a much more significant troponin elevation, could reconsider ischemic evaluation at that time. Echo today demonstrated normal LV systolic function without regional wall motion abnormalities. 2. Chest pain: Seems atypical, occurring at rest and 1 which seem to be triggered by red sauce. Has a longstanding history of atypical chest pain. Certainly has significant risk factors for CAD and coronary artery calcifications on CT imaging. 3. Coronary artery calcifications on CT scan: Likely has CAD given multiple ri sk factors and longstanding diabetes. Continue risk factor modification. Suspect presentation is not due to ACS. Has had unremarkable myocardial perfusion study nearly 2 years ago. Recommend treating his hemoptysis and probable pneumonia as per primary hospitalist service. Can consider ischemic evaluation in the outpatient setting if no obvious angina/ECG abnormalities, etc. 4. Edema: Chronically takes sodium tablets as per nephrology for chronic hyponatremia. Elevate legs while sitting. Has documented venous insufficiency. Compression stockings. He otherwise does not appear to be significantly hypervolemic. Can continue home Bumex 1 mg twice daily. 5. Hypertension: Blood pressure hypertensive today. Has had issues with significant orthostatic lightheadedness in the past and amlodipine was reduced for that reason. Continue to monitor and can make adjustments as necessary. 6. Orthostatic lightheadedness: Symptoms improved in the past with reduction of amlodipine. Change positions slowly. Compression stockings. 7. Hemoptysis: As per primary hospitalist service. He is being treated for pneumonia. 8. Disposition: Cardiology will continue to follow. Patient care communicated with primary hospitalist service, Jack Hernandez PA-C and Dr. Abdalla. Thank you for allowing me to participate in the care of your patient. Please call for any other questions or concerns. Sincerely, Rafiq Greenfield M.D. History of Present Illness Reason for Consultation: Chest pain and elevated troponin Requesting Physician: Jack Hernandez PA-C Attending Physician: Se Abdalla MD History of Present Illness Mr. Larson is a very pleasant 64-year-old gentleman with a history significant for long-standing type 1 diabetes (diagnosed at age 2), coronary calcifications on CT scan, blindness since age 24 secondary to diabetes, former smoker, hypertension, dyslipidemia, hyponatremia, hypothyroidism, and CKD. He also has a history of subarachnoid hemorrhage in 2013, multiple stroke/TIA, COPD and sleep apnea using BiPAP QHS. He has had the following studies/procedures: 1. Echo 07/02/2017: Hyperdynamic LV with EF > 70%. Normal wall motion. No significant valvular abnormalities. 2. CT chest 09/03/2018: Right lower lobe segmental bronchi mild mucus plugging/secretions. Emphysema. Extensive coronary artery calcification. 3. PFT's 10/07/2018: Moderate obstruction. 4. Echo 12/25/2018: Normal LV size, wall motion and systolic function. EF 60- 65%. Mild LVH. No diastolic dysfunction. No significant valvular abnormalities. 5. Nuclear stress 01/10/2019: Normal myocardial perfusion. Normal LV systolic function and wall motion. EF 76%. 6. Echo 04/14/21: Normal LV size, wall motion, and systolic function. EF 60-65%. Mild LVH. Mild MR. 7. Bilateral lower extremity venous reflux study 04/14/21: Right GSV dilated with reflux. Left GSV dilated with reflux. 8. Nuclear stress 02/01/2023 [facility]: Negative for ischemia. EF 77%. Normal wall motion. He was admitted today (11/06/2024) following hemoptysis. For the past 2 days, he has had a dull burning chest pain in the epigastric area. It first occurred after eating spaghetti and meatballs with red sauce. He took Mylanta x 2 with no immediate relief but eventually after 10 minutes, it subsided. He had another episode today at rest lasting only a few minutes. He denies exertional chest discomfort. He has had a history of atypical chest pain. In regards to the hemoptysis, he has a chronic cough but for the past 2 days, the cough has changed per his . She noted globs of blood with coughing episodes. He denies shortness of breath at rest, orthopnea, syncope, near syncope, and there has not been any noted melena, hematochezia, or hematuria. Given that he is blind, he did not know of the hemoptysis until noted by his . He has chronic and stable dyspnea on exertion if he walks quickly up a flight of stairs. He denies dyspnea on exertion otherwise. He was chest pain-free at the time of today's consultation. Right hip pain, significant neuropathy, and severe back pain limits exertion. He can only walk approximately 30 feet. Review of systems: As above. Family history: No known premature CAD. Social history: Quit smoking at age 49, after 37 pack years. No significant alcohol. Lives at home with his (Laine). Has 1 daughter. Has a son from a prior marriage. His accompanies him today. Allergies Allergy/AdvReac Type Severity Reaction Status Date / Time lisinopril Allergy Severe " TONGUE Verified 10/27/24 10:33 SWELLS"--ANGIOEDEMA lorazepam AdvReac Intermediate Hallucinati Verified 10/27/24 10:33 ons Home Medications Medication Instructions Recorded Confirmed Type acetaminophen 325 mg capsule 325 mg PO Q6H PRN Pain 08/06/18 11/06/24 History (Tylenol) lactobacillus combination no.4 3 3,000 mmu cells PO QAM 08/06/18 11/06/24 History billion cell capsule (Probiotic) aspirin 81 mg tablet,delayed 81 mg PO QAM 06/09/19 11/06/24 History release magnesium 200 mg tablet 400 mg PO QAM 06/09/19 11/06/24 History glucosamine sulfate 500 mg tablet 500 mg PO QAM 07/05/19 11/06/24 History (Glucosamine) levalbuterol HCl 0.63 mg/3 mL 0.63 mg (3 mL) inhalation Q6H PRN 06/08/20 11/06/24 Rx solution for nebulization shortness of breath or wheezing #360 mL ferrous sulfate 325 mg (65 mg 325 mg PO BID 03/25/21 11/06/24 History iron) tablet Senecot 125 mg PO BID 08/28/22 11/06/24 History fexofenadine 180 mg tablet 180 mg PO QAM 08/28/22 11/06/24 History (Manuela Allergy) sodium chloride 1 gram tablet 2,000 mg PO TID 04/05/23 11/06/24 History levothyroxine 175 mcg tablet 175 mcg PO QAM #90 tabs 11/06/23 11/06/24 Rx airhmbp-jizlbxexwdmpm-beeecrzn 250 1 tab PO Q6H PRN Migraine Headache 01/08/24 11/06/24 History mg-250 mg-65 mg tablet (Excedrin Migraine) albuterol sulfate 90 mcg/actuation 2 puff inhalation Q4H PRN 03/31/24 11/06/24 Rx aerosol inhaler Shortness Of Breath #8.5 grams amlodipine 2.5 mg tablet 2.5 mg PO QAM #90 tabs 04/30/24 11/06/24 Rx tamsulosin 0.4 mg capsule (Flomax) 0.4 mg PO QPM #90 caps 05/01/24 11/06/24 Rx folic acid 1 mg tablet 1 mg PO BID #180 tabs 05/20/24 11/06/24 Rx losartan 100 mg tablet 100 mg PO QAM #90 tabs 05/20/24 11/06/24 Rx isosorbide mononitrate 30 mg 30 mg PO QAM #90 tabs 05/21/24 11/06/24 Rx tablet,extended release 24 hr BiPap Machine #1 ea 05/29/24 10/27/24 Rx atenolol 50 mg tablet (Tenormin) 50 mg PO BID #180 tabs 06/12/24 11/06/24 Rx nortriptyline 25 mg capsule 50 mg (2 x 25 mg) PO HS #180 caps 06/12/24 11/06/24 Rx atorvastatin 80 mg tablet 80 mg PO HS #90 tabs 07/08/24 11/06/24 Rx pantoprazole 40 mg tablet,delayed 40 mg PO BID #180 tabs 07/21/24 11/06/24 Rx release (Protonix) ondansetron HCl 8 mg tablet 8 mg PO TID PRN nausea and 07/23/24 11/06/24 Rx vomiting #30 tabs fluticasone fur. 100 mcg-umeclid 1 inh inhalation QAM 90 days #90 09/08/24 11/06/24 Rx 62.5 mcg-vilant 25 mcg puffs inhalat.powder (Trelegy Ellipta) metoclopramide HCl 10 mg tablet 10 mg PO QID #120 tabs 09/22/24 11/06/24 Rx (Reglan) bumetanide 1 mg tablet 1 mg PO BID #180 tabs 09/29/24 11/06/24 Rx hydrocodone-homatropine 5 mg-1.5 1 tab PO BID PRN cough #60 tabs 10/20/24 11/06/24 Rx mg tablet oxycodone-acetaminophen 5 mg-325 1 - 2 tab PO DAILY PRN Pain 30 10/20/24 11/06/24 Rx mg tablet (Percocet) days #60 tabs dutasteride 0.5 mg capsule 0.5 mg PO QAM 11/06/24 11/06/24 History famotidine 20 mg tablet 20 mg PO .MORNING AND LUNCH 11/06/24 11/06/24 History famotidine 40 mg tablet 40 mg PO HS 11/06/24 11/06/24 History insulin aspart U-100 100 unit/mL 0 sliding scale dose subcut UD 11/06/24 11/06/24 History (3 mL) subcutaneous pen (Novolog FlexPen U-100 Insulin aspart) insulin degludec 100 unit/mL (3 38 unit subcut BID 11/06/24 11/06/24 History mL) subcutaneous pen (Tresiba FlexTouch U-100 insulin) promethazine 25 mg tablet 25 mg PO Q6H PRN n/v 11/06/24 11/06/24 History sucralfate 1 gram tablet 1 g PO QID 11/06/24 11/06/24 History Problem List 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 Pneumonia Unstable angina Elevated troponin (Acute) Hyponatremia Hemoptysis (Acute) Mitral regurgitation Incomplete emptying of bladder Urinary retention Submandibular space infection Chronic headache History of stroke Acquired blindness Hyperkalemia Acute kidney injury GERD (gastroesophageal reflux disease) BPH NOS w ur obs/LUTS Gastric ulcer BPH (benign prostatic hyperplasia) Acquired solitary kidney (Acute) Anemia of chronic disease (Acute) CAD (coronary atherosclerotic disease) (Acute) CKD (chronic kidney disease) stage 2, GFR 60-89 ml/min (Acute) Chronic constipation (Acute) Chronic cough (Acute) Depression (Acute) Diabetes mellitus type 1, uncontrolled (Acute) Essential hypertension (Acute) Gastroparesis (Acute) Neurogenic bladder (Acute) PAD (peripheral artery disease) (Acute) Peripheral neuropathy (Acute) Proteinuria (Acute) Sleep apnea (Acute) Hyperlipidemia (Chronic) Complex sleep apnea syndrome Edema Chronic venous insufficiency Hypertension Rash Atelectasis Exposure to COVID-19 virus (Acute) Multifocal pneumonia (Acute) GERD (gastroesophageal reflux disease) Chronic hyponatremia (Acute) COPD (chronic obstructive pulmonary disease) (Chronic) Hypothyroidism LUZMA (obstructive sleep apnea) bipap Patient History Medical History Aspiration pneumonia Fall Elevated bilirubin Family history of colon cancer DM type 1 (diabetes mellitus, type 1) History of angiography Premature ventricular beats Sepsis hx of History of subarachnoid hemorrhage 2013; memory/cognitive deficits (reports total of 3 strokes but only known event was in 2013 -- remaining strokes were incidental findings) CAD (coronary artery disease), [place] coronary artery PAD (peripheral artery disease) BPH (benign prostatic hyperplasia) Abnormal CT scan of lung Chronic diastolic CHF (congestive heart failure) pt unable to verify Urinary retention Migraine Microcytic anemia Hyperlipidemia Hypertension Ischemic colitis Over 10 years ago (before 2007) Angioedema Asthma uses PRN inh daily Surgical History History of esophagogastroduodenoscopy (EGD) Difficult airway for intubation reports he was told he was a difficult intubation after rectal abscess surgery at [facility]. says he has been intubated since then without issues; denies problems prior to that procedure, as well. History of vasectomy History of tonsillectomy and adenoidectomy History of hand surgery Hand Incision Tendon Sheath of a Finger History of rectal abscess I&D History of transurethral resection of prostate History of appendectomy History of eye surgery multiple History of ventral hernia repair H/O colonoscopy last 2019 Family History Mother Hypertension Grandfather (Paternal) Colon cancer Prostate cancer Brother Brain cancer Diabetes Bone cancer Kidney disease Lung cancer Son Diabetes Lung cancer Father Hemorrhagic stroke Hypertension Other Breast cancer No family history of adverse response to anesthesia Testicular cancer Denies family history of Ovarian cancer Myocardial infarction Social History Smoking Status: Former smoker Tobacco Type: Cigarettes Age Started Using Tobacco: 16; Age Quit Using Tobacco: 49; packs per day: 1.5; Second Hand Exposure: No; Do You Dip or Chew Tobacco: No; Hx Alcohol Use: Yes Alcohol type: hard liquor Hx Substance Use: No Preferred Language: Scottish Communication Ability: Effective Communication Ability Comment: Pt. is legally blind Visual Impairment: No Limitations Hearing Ability: Hard of Hearing Moving Worker Required: No Beliefs That Will Affect Care: None marital status: Current Living Situation: Spouse current occupational status: disabled How many Children do You have: 1 Feels Safe at Home: Yes Safety Concerns: Feels Safe At This Time Childhood Exposure to Second-Hand Smoke: Yes Diet: regular Diet Comment: regular Dental Care, Regularly: Yes Physical Activity Frequency: Does not Exercise Seatbelt Use: always Sunscreen Use: Yes Assistive Devices: Other Assistive Devices Comment: white cane Physical Exam Physical Exam: Gen.: No acute distress. Alert. Neck: No obvious JVD. Normal carotid upstrokes bilaterally. Cardiac: Regular. Normal S1-S2. No murmur. Pulmonary: Clear to auscultation bilaterally without wheezes, rales, or rhonchi. Abdomen: Soft, nontender, nondistended, with normoactive bowel sounds. No bruits noted. Extremities: 2+ radial pulses bilaterally. 2+ right lower extremity edema. Trace to 1+ left lower extremity edema. No cyanosis. Results & Data Vital Signs (Past 12 Hours) Vital Signs Temp Pulse Pulse Resp BP BP Pulse Ox 11/06/24 16:23 165/65 H 11/06/24 15:35 11/06/24 15:35 36 C L 67 20 203/78 H 100 11/06/24 15:00 69 11/06/24 14:34 65 14 163/77 H 99 11/06/24 13:30 65 18 164/75 H 97 11/06/24 12:36 63 18 96 11/06/24 12:23 65 11/06/24 12:09 65 18 98 11/06/24 11:30 150/71 H 11/06/24 11:12 65 16 97 11/06/24 11:00 152/71 H 11/06/24 10:42 65 16 141/74 H 98 11/06/24 09:30 65 16 151/69 H 97 11/06/24 09:00 62 16 143/68 H 95 11/06/24 08:30 63 14 128/47 L 96 11/06/24 08:24 66 11/06/24 08:15 67 16 138/63 97 11/06/24 08:14 68 20 97 11/06/24 07:41 36.4 C L 72 20 131/51 L 99 O2 Del Method 11/06/24 16:23 11/06/24 15:35 Room Air 11/06/24 15:35 Room Air 11/06/24 15:00 11/06/24 14:34 Room Air 11/06/24 13:30 Room Air 11/06/24 12:36 11/06/24 12:23 11/06/24 12:09 Room Air 11/06/24 11:30 11/06/24 11:12 Room Air 11/06/24 11:00 11/06/24 10:42 Room Air 11/06/24 09:30 Room Air 11/06/24 09:00 Room Air 11/06/24 08:30 Room Air 11/06/24 08:24 11/06/24 08:15 Room Air 11/06/24 08:14 Room Air 11/06/24 07:41 Room Air Laboratory Results Laboratory Results - last 24 hr 11/06/24 11/06/24 11/06/24 08:00 10:50 10:57 WBC 6.16 RBC 2.87 L Hgb 9.1 L Hct 26.5 L MCV 92.3 MCH 31.7 MCHC 34.3 RDW Std Deviation 42.7 RDW Coeff of Analisa 12.7 Plt Count 244 MPV 10.3 Immature Gran % (Auto) 0.2 Neut % (Auto) 79.1 Lymph % (Auto) 11.9 Dooly % (Auto) 7.5 Eos % (Auto) 1.0 Baso % (Auto) 0.3 Neut # (Auto) 4.88 Lymph # (Auto) 0.73 L D[place]y # (Auto) 0.46 Eos # (Auto) 0.06 Baso # (Auto) 0.02 Immature Gran # (Auto) 0.01 PT 10.2 INR 0.9 APTT 29 PTT Ratio 1.1 Sodium 126 L Potassium 4.4 Chloride 94 L Carbon Dioxide 25 Anion Gap 7 BUN 15 Creatinine 0.98 Est Cr Clr Drug Dosing Not Reportable eGFR 85.57 BUN/Creatinine Ratio 15.3 Glucose 387 H* POC Glucose Calcium 8.4 L Total Bilirubin 0.5 AST 20 ALT 35 Alkaline Phosphatase 161 H Troponin I High Sens 199.3 H* 231.0 H* Total Protein 6.6 Albumin 3.7 Globulin 2.9 Albumin/Globulin Ratio 1.3 Lipase 20 Urine Color Urine Appearance Urine pH Ur Specific [place] Urine Protein Urine Glucose (UA) Urine Ketones Urine Blood Urine Nitrite Urine Bilirubin Urine Urobilinogen Ur Leukocyte Esterase Adenovirus (PCR) Not Detected B. pertussis DNA (PCR) Not Detected B.parapertussis DNA PCR Not Detected C. pneumoniae DNA (PCR) Not Detected Coronavirus OC43 (PCR) Not Detected Coronavirus HKU1 (PCR) Not Detected Coronavirus 229E (PCR) Not Detected SARS-CoV-2 (PCR) Not Detected Coronavirus NL63 (PCR) Not Detected Human Metapneumovir PCR Not Detected Influenza Type A (PCR) Not Detected Influenza Type B (PCR) Not Detected M. pneumoniae (PCR) Not Detected Parainfluenza 1 (PCR) Not Detected Parainfluenza 2 (PCR) Not Detected Parainfluenza 3 (PCR) Not Detected Parainfluenza 4 (PCR) Not Detected RSV (PCR) Not Detected Entero/Rhino (PCR) Not Detected 11/06/24 11/06/24 12:05 13:30 WBC RBC Hgb Hct MCV MCH MCHC RDW Std Deviation RDW Coeff of Analisa Plt Count MPV Immature Gran % (Auto) Neut % (Auto) Lymph % (Auto) [place] % (Auto) Eos % (Auto) Baso % (Auto) Neut # (Auto) Lymph # (Auto) [place] # (Auto) Eos # (Auto) Baso # (Auto) Immature Gran # (Auto) PT INR APTT PTT Ratio Sodium Potassium Chloride Carbon Dioxide Anion Gap BUN Creatinine Est Cr Clr Drug Dosing eGFR BUN/Creatinine Ratio Glucose POC Glucose 119 H Calcium Total Bilirubin AST ALT Alkaline Phosphatase Troponin I High Sens Total Protein Albumin Globulin Albumin/Globulin Ratio Lipase Urine Color Yellow Urine Appearance Clear Urine pH 7.5 Ur Specific [place] 1.012 Urine Protein Negative Urine Glucose (UA) 1+ H Urine Ketones Negative Urine Blood Negative Urine Nitrite Negative Urine Bilirubin Negative Urine Urobilinogen Negative Ur Leukocyte Esterase Negative Adenovirus (PCR) B. pertussis DNA (PCR) B.parapertussis DNA PCR C. pneumoniae DNA (PCR) Coronavirus OC43 (PCR) Coronavirus HKU1 (PCR) Coronavirus 229E (PCR) SARS-CoV-2 (PCR) Coronavirus NL63 (PCR) Human Metapneumovir PCR Influenza Type A (PCR) Influenza Type B (PCR) M. pneumoniae (PCR) Parainfluenza 1 (PCR) Parainfluenza 2 (PCR) Parainfluenza 3 (PCR) Parainfluenza 4 (PCR) RSV (PCR) Entero/Rhino (PCR) Diagnostic Findings ECG personally reviewed 11/06/2024 at 7:54 AM: Sinus rhythm 69 bpm. Labs reviewed and notable for elevated high-sensitivity troponin (peaked at 231), hyponatremia (chronic and stable), normal potassium, normal renal function, hyperglycemia, normal transaminase levels, anemia. History and physical report reviewed. Venous Doppler study 11/06/2024: No DVT of the right lower extremity. CT abdomen/pelvis 11/06/2024: No acute abnormalities to explain abdominal pain per radiology. Groundglass opacities in the bilateral lung bases may represent pneumonia or other infectious/inflammatory process per radiology. Chest x-ray 11/06/2024: No acute process per radiology. Mild chronic interstitial coarsening. Per radiology. ECHO 11/06/2024: 1. Normal left ventricular size and systolic function. EF 65-70%. No regional wall motion abnormalities. Mild concentric left ventricular hypertrophy. 2. No significant valvular abnormalities. 3. Technically difficult study, enhanced with IV Definity. 4. No significant change from prior study on 04/14/2021. Medications Administered Current Inpatient Medications Acetaminophen (Acetaminophen 325 Mg Tab) 650 mg PO Q4H PRN PRN Reason: Pain or Fever Stop: 12/06/24 14:47 Amlodipine Besylate (Amlodipine Besylate 5 Mg Tab) 2.5 mg PO QAM [facility] Stop: 12/07/24 08:59 Aspirin (Aspirin 81 Mg Ectab) 81 mg PO QAM [facility] Stop: 12/07/24 08:59 Atenolol (Atenolol 50 Mg Tablet) 50 mg PO BID [facility] Stop: 12/06/24 20:59 Atorvastatin Calcium (Atorvastatin 40 Mg Tab) 80 mg PO HS SILVINA Stop: 12/06/24 20:59 Bumetanide (Bumetanide 1 Mg Tab) 1 mg PO BID [facility] Stop: 12/07/24 08:59 Dextrose (Dextrose 50% 50 Ml Syringe) 25 - 50 ml IV UD PRN; Protocol PRN Reason: Hypoglycemia Protocol Stop: 12/06/24 13:28 Famotidine (Famotidine 40 Mg Tablet) 40 mg PO HS [facility] Stop: 12/06/24 20:59 Famotidine (Famotidine 20 Mg Tab) 20 mg PO DAILY@0700,1300 [facility] Stop: 12/07/24 06:59 Ferrous Sulfate (Ferrous Sulfate 325 Mg Tab) 325 mg PO BID [facility] Stop: 12/06/24 20:59 Fexofenadine HCl (Fexofenadine Hcl 180 Mg Tab) 180 mg PO QAM [facility] Stop: 12/07/24 08:59 Finasteride (Finasteride 5 Mg Tab) 5 mg PO QAM [facility] Stop: 12/07/24 08:59 Fluticasone Furoate (Fluticasone Furoate 100mcg 14 Puffs/Inhaler) 1 puffs INH QAM [facility] Stop: 12/07/24 08:59 Folic Acid (Folic Acid 1 Mg Tab) 1 mg PO BID [facility] Stop: 12/06/24 20:59 Glucagon (Glucagon For Inj 1 Mg Vial) 1 mg SQ UD PRN; Protocol PRN Reason: Hypoglycemia Protocol Stop: 12/06/24 13:28 Glucose (Glucose 40% Gel 15 Gm Tube) 15 - 30 gm PO UD PRN; Protocol PRN Reason: Hypoglycemia Protocol Stop: 12/06/24 13:28 Glucose (Glucose 10 Tab/Tube) 4 - 8 tab PO UD PRN; Protocol PRN Reason: Hypoglycemia Protocol Stop: 12/06/24 13:28 Guaifenesin (Guaifenesin 600 Mg Tabcr) 600 mg PO Q12 [facility] Stop: 12/06/24 20:59 Ceftriaxone Sodium (Rocephin) 2,000 mg in 50 mls @ 100 mls/hr IV Q24H SILVINA Stop: 11/12/24 10:59 Doxycycline Hyclate 100 mg/ (Dextrose) 100 mls @ 50 mls/hr IV Q12H [facility] Stop: 11/12/24 00:00 Insulin Aspart (Insulin Aspart Per Unit Charge) 0 units SC ACHS [facility] Stop: 12/06/24 16:29 Last Admin: 11/06/24 16:49 Dose: 7 units Insulin Glargine (Lantus Per Unit Charge) 0 units SQ HS ONE; Protocol Stop: 11/06/24 21:01 Isosorbide Mononitrate (Isosorbide [place]ooly Extended Rel 30 Mg Tabcr) 30 mg PO QAM [facility] Stop: 12/07/24 08:59 Levalbuterol HCl (Levalbuterol Hcl 0.63 Mg/3 Ml Neb) 0.63 mg INH Q6H PRN; Protocol PRN Reason: shortness of breath or wheezing Stop: 12/06/24 14:47 Levothyroxine Sodium (Levothyroxine Sodium 175 Mcg Tablet) 175 mcg PO DAILYBB [facility] Stop: 12/07/24 06:29 Losartan Potassium (Losartan Potassium 50 Mg Tab) 100 mg PO QAM [facility] Stop: 12/07/24 08:59 Metoclopramide HCl (Metoclopramide Hcl 10 Mg Tablet) 10 mg PO QID [facility] Stop: 12/06/24 16:59 Last Admin: 11/06/24 16:22 Dose: 10 mg Miscellaneous (Carbohydrates For Hypoglycemia ) 15 - 30 gm PO UD PRN PRN Reason: Hypoglycemia Protocol Stop: 12/06/24 13:28 Miscellaneous Information (Pharmacy Glycemic Mgmt Consult) 1 each N/A UD PRN PRN Reason: Consult Stop: 12/06/24 14:47 Nortriptyline HCl (Nortriptyline Hcl 25 Mg Cap) 50 mg PO HS [facility] Stop: 12/06/24 20:59 Oxycodone/Acetaminophen (Oxycodone/Acetaminophen 5mg/325mg Tab) 1 tab PO DAILY PRN PRN Reason: Pain Stop: 11/20/24 14:47 Pantoprazole Sodium (Pantoprazole 40 Mg Tab) 40 mg PO BID [facility] Stop: 12/06/24 20:59 Sennosides (Senna 8.6 Mg Tab) 8.6 mg PO BID [facility] Stop: 12/06/24 20:59 Sodium Chloride (Sodium Chloride 1 Gm Tablet) 2 gm PO DAILY [facility] Stop: 12/07/24 08:59 Sodium Chloride (Sodium Chloride 1 Gm Tablet) 2 gm PO HS [facility] Stop: 12/06/24 20:59 Sodium Chloride (Sodium Chloride 1 Gm Tablet) 1 gm PO DAILY@1200,1700 [facility] Stop: 12/06/24 16:59 Last Admin: 11/06/24 16:22 Dose: 1 gm Sucralfate (Sucralfate 1 Gm Tab) 1 gm PO QID SILVINA Stop: 12/06/24 16:59 Last Admin: 11/06/24 16:23 Dose: 1 gm Tamsulosin HCl (Tamsulosin Hcl 0.4 Mg Cap) 0.4 mg PO QPM [facility] [facility] Stop: 12/06/24 20:59 Umeclidinium/Vilanterol (Umeclidinium/Vilanterol 62.5/25mcg 7 Puffs/Inhaler) 1 puffs INH QAM [facility] Stop: 12/07/24 08:59 PG Care Time/CCT Total # of Minutes Spent Total Time Spent with Patient: Total time spent is greater than 50% in coordination of care (as documented) at patient's floor/unit and/or counseling patient: Coding Level of Care Code 12874 INT INP/OBS CARE 3/75MIN Diagnoses Elevated troponin R79.89 CAD (coronary atherosclerotic disease) I25.10 Hypertension I10 Chest pain R07.9 Edema R60.9 Chronic venous insufficiency I87.2 Hemoptysis R04.2
[2024-11-06 17:52] LABS: Hematocrit (blood only) 30.4 % (42.0-52.0); Hemoglobin 10.3 g/dl (14.0-18.0)
[2024-11-06] MEDS: ACETAMINOPHEN 325 MG TAB PO PRN (18:05)
[2024-11-06 18:10] LABS: BUN Creatinine Ratio 11.1 (10-20); Calcium 9.1 mg/dl (8.6-10.3); Creatinine Clr Calc Pharmacy 68.8 ml/min; Potassium 4.9 mmol/L (3.5-5.1)
[2024-11-06] MEDS: guaiFENesin 600 MG TABCR PO SCH (20:05)
[2024-11-06] MEDS: FAMOTIDINE 40 MG TABLET PO SCH (20:06)
[2024-11-06] MEDS: ATORVASTATIN 40 MG TAB PO SCH (20:07)
[2024-11-06] MEDS: ATENOLOL 50 MG TABLET PO SCH (20:07)
[2024-11-06] MEDS: FOLIC ACID 1 MG TAB PO SCH (20:09)
[2024-11-06] MEDS: PANTOprazole 40 MG TAB PO SCH (20:11)
[2024-11-06] MEDS: NORTRIPTYLINE HCL 25 MG CAP PO SCH (20:11)
[2024-11-06] MEDS: FERROUS SULFATE 325 MG TAB PO SCH (20:15)
[2024-11-06] MEDS: LANTUS PER UNIT CHARGE SQ ONE (20:18)
[2024-11-06] MEDS: SENNA 8.6 MG TAB PO SCH (20:20)
[2024-11-06] MEDS: TAMSULOSIN HCL 0.4 MG CAP PO SCH (20:24)
[2024-11-06] MEDS: oxyCODONE/ACETAMINOPHEN 5mg/325mg TAB PO PRN (20:30)
[2024-11-07] MEDS: DOXYCYCLINE HYCLATE 100 MG in DEXTROSE 5% MINI-B 100 ML IV SCH (00:13)
[2024-11-07] MEDS: FAMOTIDINE 20 MG TAB PO SCH (05:56)
[2024-11-07] MEDS: LEVOTHYROXINE SODIUM 175 MCG TABLET PO SCH (05:56)
[2024-11-07 06:43] LABS: Basophils # (auto) 0.03 K/uL (0.00-0.20); Basophils % (auto) 0.6 %; Eosinophils # (auto) 0.13 K/uL (0.00-0.50); Eosinophils % (auto) 2.4 %; Hematocrit (blood only) 29.2 % (42.0-52.0); Hemoglobin 9.7 g/dl (14.0-18.0); Immature Granulocytes # (auto) 0.01 K/uL (0.01-0.20); Immature Granulocytes % (auto) 0.2 %; Lymphocytes # (auto) 1.24 K/uL (1.20-3.40); Lymphocytes % (auto) 23.2 %; Mean Corpuscular Hemoglobin 30.6 pg (25.0-34.0); Mean Corpuscular Hgb Conc 33.2 g/dL (32.0-36.0); Mean Corpuscular Volume 92.1 fL (80.0-100.0); Mean Platelet Volume 10.1 fL (9.4-12.4); Monocytes # (auto) 0.47 K/uL (0.11-0.59); Monocytes % (auto) 8.8 %; Neutrophils # (auto) 3.47 K/uL (1.40-6.50); Neutrophils % (auto) 64.8 %; Platelet Count 330 K/uL (130-400); RDW Coefficient of Variation 12.6 % (11.5-14.5); RDW Standard Deviation 42.4 fL (36.4-46.3); Red Blood Count 3.17 M/uL (4.70-6.10); White Blood Count 5.35 K/ul (4.8-10.8)
[2024-11-07 06:58] LABS: BUN Creatinine Ratio 14.7 (10-20); Calcium 9.1 mg/dl (8.6-10.3); Creatinine Clr Calc Pharmacy 91.3 ml/min; Potassium 4.2 mmol/L (3.5-5.1)
[2024-11-07 07:06] LABS: Estimated Average Glucose 174 mg/dl; Hemoglobin A1C 7.7 % (4.5-5.6)
[2024-11-07] MEDS: ASPIRIN 81 MG ECTAB PO SCH (08:23)
[2024-11-07] MEDS: FEXOFENADINE HCL 180 MG TAB PO SCH (08:23)
[2024-11-07] MEDS: amLODIPine BESYLATE 5 MG TAB PO SCH (08:23)
[2024-11-07] MEDS: LOSARTAN POTASSIUM 50 MG TAB PO SCH (08:23)
[2024-11-07] MEDS: FINASTERIDE 5 MG TAB PO SCH (08:23)
[2024-11-07] MEDS: BUMETANIDE 1 MG TAB PO SCH (08:23)
[2024-11-07] MEDS: UMECLIDINIUM/VILANTEROL 62.5/25MCG 7 PUFFS/INHALER INH SCH (08:24)
[2024-11-07] MEDS: ISOSORBIDE MONO EXTENDED REL 30 MG TABCR PO SCH (08:24)
[2024-11-07] MEDS: SODIUM CHLORIDE 1 GM TABLET PO SCH (08:24)
[2024-11-07] MEDS: FLUTICASONE FUROATE 100MCG 14 PUFFS/INHALER INH SCH (08:25)
[2024-11-07] MEDS: LANTUS PER UNIT CHARGE SC SCH ×2 (08:33→21:12)
--- NOTE | 2024-11-07 08:38 | Cardiology Progress Note ---
Date of Service November 07, 2024 Assessment & Plan (1) Elevated troponin: (2) CAD (coronary atherosclerotic disease): (3) Hypertension: (4) Chest pain: (5) Edema: (6) Chronic venous insufficiency: (7) Hemoptysis: Plan ASSESSMENT/PLAN: 1. Elevated troponin: Troponin very mildly elevated and has already peaked. Suspect that this is not acute coronary syndrome but may be related to demand ischemia in the setting of pneumonia as identified by primary hospitalist corky son. He likely has coronary disease given his multiple risk factors including longstanding diabetes. Given that he presented with hemoptysis, recommend ongoing risk factor modification for now. If he should have symptoms concerning for angina, objective findings on ECG, or a much more significant troponin elevation, could reconsider ischemic evaluation at that time. Echo 11/06/24 demonstrated normal LV systolic function without regional wall motion abnormalities. 2. Chest pain: Seems atypical, occurring at rest and 1 which seem to be triggered by red sauce. Has a longstanding history of atypical chest pain. Certainly has significant risk factors for CAD and coronary artery calcifications on CT imaging. 3. Coronary artery calcifications on CT scan: Likely has CAD given multiple risk factors and longstanding diabetes. Continue risk factor modification. Suspect presentation is not due to ACS. Has had unremarkable myocardial perfusion study nearly 2 years ago. Recommend treating his hemoptysis and probable pneumonia as per primary hospitalist service. Can consider ischemic evaluation in the outpatient setting if no obvious angina/ECG abnormalities, etc. 4. Edema: Chronically takes sodium tablets as per nephrology for chronic hyponatremia. Elevate legs while sitting. Has documented venous insufficiency. Compression stockings. He otherwise does not appear to be significantly hypervolemic. Can continue home Bumex 1 mg twice daily. 5. Hypertension: Blood pressure hypertensive today, but improved compared to yesterday. Has had issues with significant orthostatic lightheadedness in the past and amlodipine was reduced for that reason. Continue to monitor and can make adjustments as necessary. He has declined further adjustments of his antihypertensive regimen in the outpatient setting, as recently as 10/27/2024 as he tends to feel better with mildly elevated blood pressure. 6. Orthostatic lightheadedness: Symptoms improved in the past with reduction of amlodipine. Change positions slowly. Compression stockings. 7. Hemoptysis: As per primary hospitalist service. He is being treated for pneumonia. 8. Disposition: Cardiology will and off at this time. Please call on-call equity director for any further questions or concerns. Will arrange for follow-up appointment in the outpatient setting in the next few weeks, at which time noninvasive ischemic evaluation can be considered such as myocardial perfusion study. Admission and Anticipated Discharge Date Admission Date: November 06, 2024 Subjective Patient seen earlier this afternoon. He denies chest pain, shortness of breath, syncope, near syncope, palpitations. He still has a productive cough. His notes that hemoptysis is still occurring but is improving. His was present at the bedside. Physical Exam Physical Exam: Gen.: No acute distress. Alert. Neck: No obvious JVD. Cardiac: Regular. Normal S1-S2. No murmur. Pulmonary: Clear to auscultation bilaterally without wheezes, rales, or rhonchi. Abdomen: Soft, nontender, nondistended, with normoactive bowel sounds. No bruits noted. Extremities: 2+ radial pulses bilaterally. Trace bilateral lower extremity edema; R > L. No cyanosis. Results & Data Vital Signs (Past 12 Hours) Vital Signs Temp Pulse Pulse Resp BP Pulse Ox O2 Del Method 11/07/24 07:22 36.9 C 64 18 159/79 H 96 BiPAP 11/07/24 07:11 CPAP 11/07/24 04:02 36.5 C 68 16 154/74 H 96 Room Air 11/06/24 22:53 79 11/06/24 22:47 36.6 C 70 16 150/69 H 93 CPAP Intake & Output 11/05/24 11/06/24 11/07/24 11/08/24 06:59 06:59 06:59 06:59 Intake Total 700 / 700 Balance 700 / 700 Weight 225 lb 4.999 oz Laboratory Results Laboratory Results - last 24 hr 11/06/24 11/06/24 11/06/24 08:00 10:50 10:57 WBC RBC Hgb Hct MCV MCH MCHC RDW Std Deviation RDW Coeff of Analisa Plt Count MPV Immature Gran % (Auto) Neut % (Auto) Lymph % (Auto) [place] % (Auto) Eos % (Auto) Baso % (Auto) Neut # (Auto) Lymph # (Auto) [place] # (Auto) Eos # (Auto) Baso # (Auto) Immature Gran # (Auto) PT 10.2 INR 0.9 APTT 29 PTT Ratio 1.1 Sodium 126 L Potassium 4.4 Chloride 94 L Carbon Dioxide 25 Anion Gap 7 BUN 15 Creatinine 0.98 Est Cr Clr Drug Dosing Not Reportable eGFR 85.57 BUN/Creatinine Ratio 15.3 Glucose 387 H* POC Glucose Estimat Average Glucose Hemoglobin A1c Calcium 8.4 L Total Bilirubin 0.5 AST 20 ALT 35 Alkaline Phosphatase 161 H Troponin I High Sens 199.3 H* 231.0 H* Total Protein 6.6 Albumin 3.7 Globulin 2.9 Albumin/Globulin Ratio 1.3 Lipase 20 Urine Color Urine Appearance Urine pH Ur Specific [place] Urine Protein Urine Glucose (UA) Urine Ketones Urine Blood Urine Nitrite Urine Bilirubin Urine Urobilinogen Ur Leukocyte Esterase Adenovirus (PCR) Not Detected B. pertussis DNA (PCR) Not Detected B.parapertussis DNA PCR Not Detected C. pneumoniae DNA (PCR) Not Detected Coronavirus OC43 (PCR) Not Detected Coronavirus HKU1 (PCR) Not Detected Coronavirus 229E (PCR) Not Detected SARS-CoV-2 (PCR) Not Detected Coronavirus NL63 (PCR) Not Detected Human Metapneumovir PCR Not Detected Influenza Type A (PCR) Not Detected Influenza Type B (PCR) Not Detected M. pneumoniae (PCR) Not Detected Parainfluenza 1 (PCR) Not Detected Parainfluenza 2 (PCR) Not Detected Parainfluenza 3 (PCR) Not Detected Parainfluenza 4 (PCR) Not Detected RSV (PCR) Not Detected Entero/Rhino (PCR) Not Detected 11/06/24 11/06/24 11/06/24 12:05 13:30 17:34 WBC RBC Hgb 10.3 L Hct 30.4 L MCV MCH MCHC RDW Std Deviation RDW Coeff of Analisa Plt Count MPV Immature Gran % (Auto) Neut % (Auto) Lymph % (Auto) [place] % (Auto) Eos % (Auto) Baso % (Auto) Neut # (Auto) Lymph # (Auto) [place] # (Auto) Eos # (Auto) Baso # (Auto) Immature Gran # (Auto) PT INR APTT PTT Ratio Sodium 130 L Potassium 4.9 Chloride 97 L Carbon Dioxide 25 Anion Gap 8 BUN 14 Creatinine 1.26 Est Cr Clr Drug Dosing 68.8 eGFR 63.29 BUN/Creatinine Ratio 11.1 Glucose 199 H POC Glucose 119 H Estimat Average Glucose Hemoglobin A1c Calcium 9.1 Total Bilirubin AST ALT Alkaline Phosphatase Troponin I High Sens 153.2 H* D Total Protein Albumin Globulin Albumin/Globulin Ratio Lipase Urine Color Yellow Urine Appearance Clear Urine pH 7.5 Ur Specific [place] 1.012 Urine Protein Negative Urine Glucose (UA) 1+ H Urine Ketones Negative Urine Blood Negative Urine Nitrite Negative Urine Bilirubin Negative Urine Urobilinogen Negative Ur Leukocyte Esterase Negative Adenovirus (PCR) B. pertussis DNA (PCR) B.parapertussis DNA PCR C. pneumoniae DNA (PCR) Coronavirus OC43 (PCR) Coronavirus HKU1 (PCR) Coronavirus 229E (PCR) SARS-CoV-2 (PCR) Coronavirus NL63 (PCR) Human Metapneumovir PCR Influenza Type A (PCR) Influenza Type B (PCR) M. pneumoniae (PCR) Parainfluenza 1 (PCR) Parainfluenza 2 (PCR) Parainfluenza 3 (PCR) Parainfluenza 4 (PCR) RSV (PCR) Entero/Rhino (PCR) 11/06/24 11/07/24 11/07/24 23:17 05:46 07:23 WBC 5.35 RBC 3.17 L Hgb 9.7 L Hct 29.2 L MCV 92.1 MCH 30.6 MCHC 33.2 RDW Std Deviation 42.4 RDW Coeff of Analisa 12.6 Plt Count 330 MPV 10.1 Immature Gran % (Auto) 0.2 Neut % (Auto) 64.8 Lymph % (Auto) 23.2 [place] % (Auto) 8.8 Eos % (Auto) 2.4 Baso % (Auto) 0.6 Neut # (Auto) 3.47 Lymph # (Auto) 1.24 [place] # (Auto) 0.47 Eos # (Auto) 0.13 Baso # (Auto) 0.03 Immature Gran # (Auto) 0.01 PT INR APTT PTT Ratio Sodium 132 L Potassium 4.2 Chloride 100 Carbon Dioxide 25 Anion Gap 7 BUN 14 Creatinine 0.95 D Est Cr Clr Drug Dosing 91.3 eGFR 88.83 BUN/Creatinine Ratio 14.7 Glucose 124 H POC Glucose 138 H Estimat Average Glucose 174 Hemoglobin A1c 7.7 H Calcium 9.1 Total Bilirubin AST ALT Alkaline Phosphatase Troponin I High Sens 150.6 H* 151.0 H* Total Protein Albumin Globulin Albumin/Globulin Ratio Lipase Urine Color Urine Appearance Urine pH Ur Specific [place] Urine Protein Urine Glucose (UA) Urine Ketones Urine Blood Urine Nitrite Urine Bilirubin Urine Urobilinogen Ur Leukocyte Esterase Adenovirus (PCR) B. pertussis DNA (PCR) B.parapertussis DNA PCR C. pneumoniae DNA (PCR) Coronavirus OC43 (PCR) Coronavirus HKU1 (PCR) Coronavirus 229E (PCR) SARS-CoV-2 (PCR) Coronavirus NL63 (PCR) Human Metapneumovir PCR Influenza Type A (PCR) Influenza Type B (PCR) M. pneumoniae (PCR) Parainfluenza 1 (PCR) Parainfluenza 2 (PCR) Parainfluenza 3 (PCR) Parainfluenza 4 (PCR) RSV (PCR) Entero/Rhino (PCR) Diagnostic Findings Labs reviewed and notable for stabilized high-sensitivity troponin near 150, normal potassium, stable renal function, anemia. Telemetry personally reviewed: Sinus rhythm. Medications Administered Current Inpatient Medications Acetaminophen (Acetaminophen 325 Mg Tab) 650 mg PO Q4H PRN PRN Reason: Pain or Fever Stop: 12/06/24 14:47 Last Admin: 11/07/24 04:37 Dose: 650 mg Amlodipine Besylate (Amlodipine Besylate 5 Mg Tab) 2.5 mg PO QAM [facility] Stop: 12/07/24 08:59 Last Admin: 11/07/24 08:23 Dose: 2.5 mg Aspirin (Aspirin 81 Mg Ectab) 81 mg PO QAM [facility] Stop: 12/07/24 08:59 Last Admin: 11/07/24 08:23 Dose: 81 mg Atenolol (Atenolol 50 Mg Tablet) 50 mg PO BID [facility] Stop: 12/06/24 20:59 Last Admin: 11/07/24 08:24 Dose: 50 mg Atorvastatin Calcium (Atorvastatin 40 Mg Tab) 80 mg PO HS [facility] Stop: 12/06/24 20:59 Last Admin: 11/06/24 20:07 Dose: 80 mg Bumetanide (Bumetanide 1 Mg Tab) 1 mg PO BID [facility] Stop: 12/07/24 08:59 Last Admin: 11/07/24 08:23 Dose: 1 mg Dextrose (Dextrose 50% 50 Ml Syringe) 25 - 50 ml IV UD PRN; Protocol PRN Reason: Hypoglycemia Protocol Stop: 12/06/24 13:28 Famotidine (Famotidine 40 Mg Tablet) 40 mg PO HS [facility] Stop: 12/06/24 20:59 Last Admin: 11/06/24 20:06 Dose: 40 mg Famotidine (Famotidine 20 Mg Tab) 20 mg PO DAILY@0700,1300 [facility] Stop: 12/07/24 06:59 Last Admin: 11/07/24 05:56 Dose: 20 mg Ferrous Sulfate (Ferrous Sulfate 325 Mg Tab) 325 mg PO BID [facility] Stop: 12/06/24 20:59 Last Admin: 11/07/24 08:24 Dose: 325 mg Fexofenadine HCl (Fexofenadine Hcl 180 Mg Tab) 180 mg PO QAM [facility] Stop: 12/07/24 08:59 Last Admin: 11/07/24 08:23 Dose: 180 mg Finasteride (Finasteride 5 Mg Tab) 5 mg PO QAM [facility] Stop: 12/07/24 08:59 Last Admin: 11/07/24 08:23 Dose: 5 mg Fluticasone Furoate (Fluticasone Furoate 100mcg 14 Puffs/Inhaler) 1 puffs INH QAM [facility] Stop: 12/07/24 08:59 Last Admin: 11/07/24 08:25 Dose: 1 puffs Folic Acid (Folic Acid 1 Mg Tab) 1 mg PO BID [facility] Stop: 12/06/24 20:59 Last Admin: 11/07/24 08:24 Dose: 1 mg Glucagon (Glucagon For Inj 1 Mg Vial) 1 mg SQ UD PRN; Protocol PRN Reason: Hypoglycemia Protocol Stop: 12/06/24 13:28 Glucose (Glucose 40% Gel 15 Gm Tube) 15 - 30 gm PO UD PRN; Protocol PRN Reason: Hypoglycemia Protocol Stop: 12/06/24 13:28 Glucose (Glucose 10 Tab/Tube) 4 - 8 tab PO UD PRN; Protocol PRN Reason: Hypoglycemia Protocol Stop: 12/06/24 13:28 Guaifenesin (Guaifenesin 600 Mg Tabcr) 600 mg PO Q12 [facility] Stop: 12/06/24 20:59 Last Admin: 11/07/24 08:24 Dose: 600 mg Ceftriaxone Sodium (Rocephin) 2,000 mg in 50 mls @ 100 mls/hr IV Q24H [facility] Stop: 11/12/24 10:59 Doxycycline Hyclate 100 mg/ (Dextrose) 100 mls @ 50 mls/hr IV Q12H [facility] Stop: 11/12/24 00:00 Last Infusion: 11/07/24 02:13 Dose: Infused Insulin Aspart (Insulin Aspart Per Unit Charge) 0 units SC ACHS [facility] Stop: 12/06/24 16:29 Last Admin: 11/06/24 20:02 Dose: 7 units Insulin Aspart (Insulin Aspart Per Unit Charge) 0 units SC TODAY@0200 [facility] Stop: 12/08/24 01:59 Insulin Glargine (Lantus Per Unit Charge) [facility] Stop: 12/07/24 08:59 Insulin Glargine (Lantus Per Unit Charge) 0 units SC [facility]; Protocol Stop: 12/07/24 20:59 Isosorbide Mononitrate (Isosorbide [place] Extended Rel 30 Mg Tabcr) 30 mg PO [facility] Stop: 12/07/24 08:59 Last Admin: 11/07/24 08:24 Dose: 30 mg Levalbuterol HCl (Levalbuterol Hcl 0.63 Mg/3 Ml Neb) 0.63 mg INH Q6H PRN; Protocol PRN Reason: shortness of breath or wheezing Stop: 12/06/24 14:47 Levothyroxine Sodium (Levothyroxine Sodium 175 Mcg Tablet) [facility] Stop: 12/07/24 06:29 Last Admin: 11/07/24 05:56 Dose: 175 mcg Losartan Potassium (Losartan Potassium 50 Mg Tab) 100 mg PO [facility] Stop: 12/07/24 08:59 Last Admin: 11/07/24 08:23 Dose: 100 mg Metoclopramide HCl (Metoclopramide Hcl 10 Mg Tablet) 10 mg PO QID [facility] Stop: 12/06/24 16:59 Last Admin: 11/07/24 08:23 Dose: 10 mg Miscellaneous (Carbohydrates For Hypoglycemia ) 15 - 30 gm PO UD PRN PRN Reason: Hypoglycemia Protocol Stop: 12/06/24 13:28 Miscellaneous Information (Pharmacy Glycemic Mgmt Consult) 1 each N/A UD PRN PRN Reason: Consult Stop: 12/06/24 14:47 Nortriptyline HCl (Nortriptyline Hcl 25 Mg Cap) 50 mg PO [facility] Stop: 12/06/24 20:59 Last Admin: 11/06/24 20:11 Dose: 50 mg Oxycodone/Acetaminophen (Oxycodone/Acetaminophen 5mg/325mg Tab) 1 tab PO DAILY PRN PRN Reason: Pain Stop: 11/20/24 14:47 Last Admin: 11/06/24 20:30 Dose: 1 tab Pantoprazole Sodium (Pantoprazole 40 Mg Tab) 40 mg PO BID [facility] Stop: 12/06/24 20:59 Last Admin: 11/07/24 08:23 Dose: 40 mg Sennosides (Senna 8.6 Mg Tab) 8.6 mg PO BID [facility] Stop: 12/06/24 20:59 Last Admin: 11/07/24 08:23 Dose: 8.6 mg Sodium Chloride (Sodium Chloride 1 Gm Tablet) 2 gm PO DAILY [facility] Stop: 12/07/24 08:59 Last Admin: 11/07/24 08:24 Dose: 2 gm Sodium Chloride (Sodium Chloride 1 Gm Tablet) 2 gm PO HS [facility] Stop: 12/06/24 20:59 Last Admin: 11/06/24 20:13 Dose: 2 gm Sodium Chloride (Sodium Chloride 1 Gm Tablet) 1 gm PO DAILY@1200,1700 [facility] Stop: 12/06/24 16:59 Last Admin: 11/06/24 16:22 Dose: 1 gm Sucralfate (Sucralfate 1 Gm Tab) 1 gm PO QID [facility] Stop: 12/06/24 16:59 Last Admin: 11/07/24 08:23 Dose: 1 gm Tamsulosin HCl (Tamsulosin Hcl 0.4 Mg Cap) 0.4 mg PO QPM [facility] Stop: 12/06/24 20:59 Last Admin: 11/06/24 20:24 Dose: 0.4 mg Umeclidinium/Vilanterol (Umeclidinium/Vilanterol 62.5/25mcg 7 Puffs/Inhaler) 1 puffs INH QAM [facility] Stop: 12/07/24 08:59 Last Admin: 11/07/24 08:24 Dose: 1 puffs PG Care Time/CCT Total # of Minutes Spent Total Time Spent with Patient: Total time spent is greater than 50% in coordination of care (as documented) at patient's floor/unit and/or counseling patient: Coding Level of Care Code 35304 SUB INP/OBS CARE 3/50MIN Diagnoses Elevated troponin R79.89 CAD (coronary atherosclerotic disease) I25.10 Hypertension I10 Chest pain R07.9 Edema R60.9 Chronic venous insufficiency I87.2 Hemoptysis R04.2
[2024-11-07] MEDS ORDERED: NON-FORMULARY MEDICATION (Glucosamine Sulfate [Glucosamine] 500 mg Tablet) PO SCH (09:00)
[2024-11-07] MEDS ORDERED: NON-FORMULARY MEDICATION (Magnesium 200 mg tablet) PO SCH (09:00)
--- NOTE | 2024-11-07 10:22 | Hospitalist Progress Note ---
Date of Service November 07, 2024 Assessment & Plan (1) Hemoptysis: Plan: -likely 2nd to PNA -con't rocephin/doxycycline -monitor sputum -h/h (2) Pneumonia: Plan: Rocephin 2000 mg IV q24h Doxycycline 100 mg IV q12h Mucinex BID Supplemental oxygen (3) Unstable angina: Plan: Cardiology consult appreciated troponin elevation likely 2nd to demand ischemia from PNA (4) Diabetes mellitus type 1, uncontrolled: Plan: Patient is normally on Tresiba 38 units BID Lantus BID + SSI while inpatient T1DM diet BSG ACHS (5) Hyponatremia: Plan: Chronic; NA 126 on arrival, now improved to 132 Continue sodium chloride 2 g tablets TID (6) Elevated troponin: Plan: -cardiology consult appreciated, 2nd to demand ischemia (7) Blindness: Plan: noted Plan Disposition: Admit to PCU telemetry Full code T1DM, heart healthy diet VTE PPx: Admission and Anticipated Discharge Date Admission Date: November 06, 2024 Subjective No events overnight. Pt resting comfortably in bed. Review of Systems Review of Systems: CONST: Negative for fever, body aches and chills. HENT: Negative for neck pain/stiffness, headache, congestion, sore throat, swelling. EYES: Negative for discharge/pain or vision changes. RESP: Negative for cough/hemoptysis and shortness of breath. CV: Negative chest pain, difficulty breathing, palpitations. ABD: Negative pain, nausea, vomiting. : Negative increase frequency, dysuria, blood in urine or stool. MUSC: Negative for muscle aches, edema. SKIN: Negative rash, lesions/sores. NEURO: Negative headache, dizziness, weakness. Physical Exam Physical Exam: GENERAL APPEARANCE NAD, activity normal for age, well developed/ well nourished, no cyanosis, pallor, or diaphoresis. EYES lids/conjunctiva normal. EARS/NOSE/THROAT Mucous membranes moist, nares normal, lips/teeth normal uvula midline without oral pharyngeal erythema, exudate or swelling TMs normal bilaterally. No lymphangitis/lymphedema. HEAD/NECK normocephalic atraumatic, no facial trauma, neck is supple. RESPIRATORY respiratory effort normal, speaks in full sentences, no tripod position, no accessory muscle use. Lungs clear to auscultation without rhonchi, wheezes, rales CARDIAC Regular rate and rhythm, no edema. ABDOMINAL Soft, ND/NT. No evidence of fluid wave. No pulsatile masses on exam, rebound tenderness, Davila sign or pain over Mcburney's point. MUSCLES/EXTREMITIES No abnormal range of motion, no swelling. SKIN Warm, pink and dry. No rashes, dermatoses, petechiae or lesions. NEUROLOGICAL Speech is clear and appropriate. Normal level of consciousness. Gait and coordination are normal. 5/5 strength in all extremities. PSYCH Normal mood and affect. Judgement/competence is appropriate Results & Data Results & Data Vital Signs (Past 12 Hours) Vital Signs Temp Pulse Pulse Resp BP Pulse Ox O2 Del Method 11/07/24 07:22 36.9 C 64 18 159/79 H 96 BiPAP 11/07/24 07:11 CPAP 11/07/24 04:02 36.5 C 68 16 154/74 H 96 Room Air 11/06/24 22:53 79 11/06/24 22:47 36.6 C 70 16 150/69 H 93 CPAP PG Care Time/CCT Total # of Minutes Spent Total Time Spent with Patient: Total time spent is greater than 50% in coordination of care (as documented) at patient's floor/unit and/or counseling patient: Coding Level of Care Code 32950 SUB INP/OBS CARE 2/35MIN Diagnoses Hemoptysis R04.2 Pneumonia J18.9 Unstable angina I20.0 Uncontrolled type 1 diabetes mellitus with hyperglycemia E10.65 Glycemic state: with hyperglycemia Hyponatremia E87.1 Elevated troponin R79.89 Blindness H54.7 (4) Diabetes mellitus type 1, uncontrolled Glycemic state: with hyperglycemia Qualified Code(s): E10.65 - Type 1 diabetes mellitus with hyperglycemia
[2024-11-07] MEDS: cefTRIAXone SODIUM 2,000 MG/50 ML BAG IV SCH (11:06)
--- NOTE | 2024-11-07 14:29 | Pharmacy Report ---
Pharmacy Glycemic Short Note 2 - Date of Service November 07, 2024 - Glycemic Short BSG Results (Last 24 hours): 11/06/24 11/07/24 11/07/24 17:34 05:46 07:23 Glucose 199 H 124 H POC Glucose 138 H OUTPATIENT ANTIDIABETIC REGIMEN: * Tresiba 38 units SC BID * Novolog * Correction factor: 2 units for every 20 mg/dL above 150 mg/dL (similar to correction factor of 10 mg/dL/unit here) * Carb ratio: 1 unit for every 4 g CHO ASSESSMENT: 11/07 * BSGs control acceptable over last 24 hrs * 58 units basal on board this AM (38 units in AM prior to admission + 20 units given here last night), Fasting BSG near goal (FBS = 138). Plan to continue a similar basal regimen over next 24 hrs however scaling PM dose given variability in insulin requirements on prior admissions and prior hypoglycemic events when home dose used * Post-prandial BSGs controlled with current Novolog CR/CF - reasonable to continue for now 11/06 * 64 yo M with T1DM known to our glycemic service from two admissions in August 2022. Patient has history of inpatient hypoglycemia while on home basal regimen. May also require tighter parameters at breakfast as compared to lunch, dinner, bedtime. * Will initiate Lantus at lower than home dose based on history. * Will start Novolog regimen similar to previous admission (which is also similar to reported home regimen) but slightly looser for now, pending BSG trend PLAN FOR INPATIENT GLYCEMIC CONTROL: * Basal insulin * Lantus 30 units SQ Q AM tonight. Lantus 0-25 units Q HS (0 units if BSG less than 110, 15 units if BSG 110-140, 20 units if BSG 141-220, 25 units if BSG above 220) * Bolus insulin * NovoLog per scale ACHS and at 0200 tonight * Goal Range: Low 110 mg/dL - High 140 mg/dL * Correction Factor: 15 mg/dL/unit * Nutritional / Prandial insulin per carb ratio of 1 unit per 4 grams CHO consumed
--- NOTE | 2024-11-07 22:30 | Electrocardiogram Report ---
Test Reason : Blood Pressure : */* mmHG Vent. Rate : 69 BPM Atrial Rate : 69 BPM P-R Int : 198 ms QRS Dur : 82 ms QT Int : 402 ms P-R-T Axes : 71 65 60 degrees QTcB Int : 430 ms Normal sinus rhythm Possible Septal infarct When compared with ECG of 10-Jan-2023 12:56, Possible Septal infarct is now Present Confirmed by Sharath Greenfield ([id number]) on 11/07/2024 10:30:30 PM Referred By: REFERRED SELF Confirmed By: Sharath Greenfield
[2024-11-08] MEDS: INSULIN ASPART PER UNIT CHARGE SC SCH (04:07)
[2024-11-08 06:26] LABS: Basophils # (auto) 0.04 K/uL (0.00-0.20); Basophils % (auto) 0.7 %; Eosinophils # (auto) 0.14 K/uL (0.00-0.50); Eosinophils % (auto) 2.5 %; Hematocrit (blood only) 30.5 % (42.0-52.0); Hemoglobin 10.4 g/dl (14.0-18.0); Immature Granulocytes # (auto) 0.01 K/uL (0.01-0.20); Immature Granulocytes % (auto) 0.2 %; Lymphocytes # (auto) 1.25 K/uL (1.20-3.40); Lymphocytes % (auto) 22.2 %; Mean Corpuscular Hemoglobin 31.4 pg (25.0-34.0); Mean Corpuscular Hgb Conc 34.1 g/dL (32.0-36.0); Mean Corpuscular Volume 92.1 fL (80.0-100.0); Mean Platelet Volume 9.9 fL (9.4-12.4); Monocytes # (auto) 0.53 K/uL (0.11-0.59); Monocytes % (auto) 9.4 %; Neutrophils # (auto) 3.66 K/uL (1.40-6.50); Platelet Count 319 K/uL (130-400); RDW Coefficient of Variation 12.7 % (11.5-14.5); RDW Standard Deviation 43.1 fL (36.4-46.3); Red Blood Count 3.31 M/uL (4.70-6.10); White Blood Count 5.63 K/ul (4.8-10.8)
[2024-11-08 06:40] LABS: BUN Creatinine Ratio 17.6 (10-20); Creatinine Clr Calc Pharmacy 80.9 ml/min
[2024-11-08] MEDS: LANTUS PER UNIT CHARGE SC ONE (08:29)
[2024-11-08] MEDS: OPTIRAY 320 125ml IV ONE (09:11)
--- NOTE | 2024-11-08 09:47 | Hospitalist Progress Note ---
Date of Service November 08, 2024 Assessment & Plan (1) Hemoptysis: Plan: -likely 2nd to PNA -con't rocephin/doxycycline -monitor sputum -h/h stable -CTA chest ordered -pulmonary consulted (2) Pneumonia: Plan: Rocephin 2000 mg IV q24h Doxycycline 100 mg IV q12h Mucinex BID Supplemental oxygen (3) Unstable angina: Plan: Cardiology consult appreciated troponin elevation likely 2nd to demand ischemia from PNA (4) Diabetes mellitus type 1, uncontrolled: Plan: Patient is normally on Tresiba 38 units BID Lantus BID + SSI while inpatient T1DM diet BSG ACHS (5) Hyponatremia: Plan: Chronic; NA 126 on arrival, now improved to 133 Continue sodium chloride 2 g tablets TID (6) Elevated troponin: Plan: -cardiology consult appreciated, 2nd to demand ischemia (7) Blindness: Plan: noted Plan Disposition: Admit to PCU telemetry Full code T1DM, heart healthy diet VTE PPx: Admission and Anticipated Discharge Date Admission Date: November 06, 2024 Subjective Pt's noticed pt still with hemoptysis, "blob of red" coughed up. Pt otherwise has no complaints and no events overnight. Review of Systems Review of Systems: CONST: Negative for fever, body aches and chills. HENT: Negative for neck pain/stiffness, headache, congestion, sore throat, swelling. EYES: Negative for discharge/pain or vision changes. RESP: Negative for cough/hemoptysis and shortness of breath. CV: Negative chest pain, difficulty breathing, palpitations. ABD: Negative pain, nausea, vomiting. : Negative increase frequency, dysuria, blood in urine or stool. MUSC: Negative for muscle aches, edema. SKIN: Negative rash, lesions/sores. NEURO: Negative headache, dizziness, weakness. Physical Exam Physical Exam: GENERAL APPEARANCE NAD, activity normal for age, well developed/ well nourished, no cyanosis, pallor, or diaphoresis. EYES lids/conjunctiva normal. EARS/NOSE/THROAT Mucous membranes moist, nares normal, lips/teeth normal uvula midline without oral pharyngeal erythema, exudate or swelling TMs normal bilaterally. No lymphangitis/lymphedema. HEAD/NECK normocephalic atraumatic, no facial trauma, neck is supple. RESPIRATORY respiratory effort normal, speaks in full sentences, no tripod position, no accessory muscle use. Lungs clear to auscultation without rhonchi, wheezes, rales CARDIAC Regular rate and rhythm, no edema. ABDOMINAL Soft, ND/NT. No evidence of fluid wave. No pulsatile masses on exam, rebound tenderness, Davila sign or pain over Mcburney's point. MUSCLES/EXTREMITIES No abnormal range of motion, no swelling. SKIN Warm, pink and dry. No rashes, dermatoses, petechiae or lesions. NEUROLOGICAL Speech is clear and appropriate. Normal level of consciousness. Gait and coordination are normal. 5/5 strength in all extremities. PSYCH Normal mood and affect. Judgement/competence is appropriate Results & Data Results & Data Vital Signs (Past 12 Hours) Vital Signs Temp Pulse Resp BP Pulse Ox O2 Del Method 11/08/24 07:50 36.6 C 72 18 159/73 H 96 Room Air 11/08/24 03:25 36.5 C 65 18 95 Room Air 11/07/24 23:05 36.5 C 67 18 154/73 H 96 Room Air PG Care Time/CCT Total # of Minutes Spent Total Time Spent with Patient: Total time spent is greater than 50% in coordination of care (as documented) at patient's floor/unit and/or counseling patient: Coding Level of Care Code 26055 SUB INP/OBS CARE 2/35MIN Diagnoses Hemoptysis R04.2 Pneumonia J18.9 Unstable angina I20.0 Uncontrolled type 1 diabetes mellitus with hyperglycemia E10.65 Glycemic state: with hyperglycemia Hyponatremia E87.1 Elevated troponin R79.89 Blindness H54.7 (4) Diabetes mellitus type 1, uncontrolled Glycemic state: with hyperglycemia Qualified Code(s): E10.65 - Type 1 diabetes mellitus with hyperglycemia
--- NOTE | 2024-11-08 09:47 | CT Scan Report ---
EXAM: CT Angiography Chest With Intravenous Contrast INDICATION: Hemoptysis. TECHNIQUE: Axial computed tomographic angiography images of the chest with intravenous contrast. Sagittal and coronal reformatted images were created and reviewed. This CT exam was performed using one or more of the following dose reduction techniques: automated exposure control, adjustment of the mA and/or kV according to patient size, and/or use of iterative reconstruction technique. MIP reconstructed images were created and reviewed. CONTRAST: 112ml of Optiray 320 was administered intravenously. COMPARISON: 09/11/2022 FINDINGS: Pulmonary arteries: No abnormality noted. No pulmonary embolism. Aorta: No acute change noted. No thoracic aortic aneurysm or dissection. Lungs and pleural spaces: Increased diffuse reticular nodular disease in the lower lobes with peribronchial groundglass infiltrates. There is patchy consolidative infiltrate in the medial right base. No bronchiectasis or honeycombing. Stable 2 mm subpleural right upper lobe pulmonary nodule series 4 image 96. No pleural effusion or pneumothorax. Heart: Stable cardiomegaly. No evidence of right heart failure. No pericardial effusion. Mediastinum: There is mild diffuse esophageal dilatation tapering at the hiatus. Bones/joints: No acute abnormality. Soft tissues: No abnormality noted. Lymph nodes: Shotty mediastinal and hilar adenopathy present. Stable enlarged right hilar node measures 11 mm short axis dimension. Increased size of precarinal node now measures 11 mm (was 7 mm). IMPRESSION: 1. No pulmonary embolus noted. Impression pneumonitis with bilateral multifocal lower lobe pneumonia. Impression diffuse mild esophageal dilatation. Consider achalasia. 2. Reactive mild mediastinal adenopathy. ACT 112: Negative or not required by law. Electronically signed by Mary Anne Ga 11-08-2024 09:46 AM
--- NOTE | 2024-11-08 13:48 | Pulmonary Consultation ---
Date of Consultation November 08, 2024 Assessment & Plan (1) Hemoptysis: Small volume hemoptysis likely secondary to bronchial pneumonia. Will add 40 mg of prednisone daily for the next 5 days to help with airway inflammation and interstitial pneumonia. If no improvement by Sunday, will need to strongly consider bronchoscopy to rule out alveolar hemorrhage, endobronchial lesion and atypical infections. Continue with current antibiotic regimen. Can also consider nebulized TXA depending on clinical picture if he has continued hemoptysis. Continue bronchodilators. (2) Community acquired pneumonia: Continue Rocephin and doxycycline. (3) Complex sleep apnea syndrome: Continue BiPAP therapy. Follows with Dr. Orosco of the pulmonary clinic as an outpatient. History of Present Illness Reason for Consultation: Hemoptysis Attending Physician: Med Medina MD History of Present Illness 64-year-old male who presented to the hospital due to hemoptysis. He has a history of subarachnoid hemorrhage, LUZMA, COPD, type 1 diabetes mellitus, chronic venous insufficiency, CAD, CKD and urinary retention. Patient also legally blind. Patient noticed hemoptysis that began around the 13 or 14. He also had some substernal chest pain and shortness of breath. He had a CT of his chest which revealed lower lobe groundglass opacities. He follows with Dr. Orosco in the pulmonary clinic. I reviewed his last note from 09/08/2024 which indicated that he has a history of sleep disordered breathing and COPD stable on Trelegy. PFTs 01/04/2021 revealed a moderate airflow obstruction with an FEV1 of 57% predicted without a significant postbronchodilator response. CT as noted above today revealed pneumonitis with bilateral multifocal pneumonia. Previous CT chest was in 2021 which revealed severe atherosclerotic changes in the aorta and coronary arteries and mild bilateral atelectasis and scarring seen at the bases. Respiratory viral panel was - 11/06/2024. Sputum cultures negative with moderate normal fariha. Blood cultures were not obtained this admission. No leukocytosis seen this admission. No significant peripheral eosinophilia. Patient's relevant medications include Arnuity, Anoro Ellipta, guaifenesin, Rocephin, doxycycline and aspirin. Echo 11/06/2024 revealed a normal ejection fraction with an EF of 65 to 70%. Right ventricle was normal in size and function. Patient is accompanied today by his and his seo specialist. His notes that he had some blood-tinged sputum today which is improved compared to a few days prior. Patient denies any shortness of breath while laying in bed. He denies any fevers or chills. No chest pain. No nausea or vomiting. Allergies Allergy/AdvReac Type Severity Reaction Status Date / Time lisinopril Allergy Severe " TONGUE Verified 10/27/24 10:33 SWELLS"--ANGIOEDEMA lorazepam AdvReac Intermediate Hallucinati Verified 10/27/24 10:33 ons Home Medications Medication Instructions Recorded Confirmed Type acetaminophen 325 mg capsule 325 mg PO Q6H PRN Pain 08/06/18 11/06/24 History (Tylenol) lactobacillus combination no.4 3 3,000 mmu cells PO QAM 08/06/18 11/06/24 Hist ory billion cell capsule (Probiotic) aspirin 81 mg tablet,delayed 81 mg PO QAM 06/09/19 11/06/24 History release magnesium 200 mg tablet 400 mg PO QAM 06/09/19 11/06/24 History glucosamine sulfate 500 mg tablet 500 mg PO QAM 07/05/19 11/06/24 History (Glucosamine) levalbuterol HCl 0.63 mg/3 mL 0.63 mg (3 mL) inhalation Q6H PRN 06/08/20 11/06/24 Rx solution for nebulization shortness of breath or wheezing #360 mL ferrous sulfate 325 mg (65 mg 325 mg PO BID 03/25/21 11/06/24 History iron) tablet Senecot 125 mg PO BID 08/28/22 11/06/24 History fexofenadine 180 mg tablet 180 mg PO QAM 08/28/22 11/06/24 History (Manuela Allergy) sodium chloride 1 gram tablet 2,000 mg PO TID 04/05/23 11/06/24 History levothyroxine 175 mcg tablet 175 mcg PO QAM #90 tabs 11/06/23 11/06/24 Rx ddiktqw-jbtppptkbvbqg-fizaxmhg 250 1 tab PO Q6H PRN Migraine Headache 01/08/24 11/06/24 History mg-250 mg-65 mg tablet (Excedrin Migraine) albuterol sulfate 90 mcg/actuation 2 puff inhalation Q4H PRN 03/31/24 11/06/24 Rx aerosol inhaler Shortness Of Breath #8.5 grams amlodipine 2.5 mg tablet 2.5 mg PO QAM #90 tabs 04/30/24 11/06/24 Rx tamsulosin 0.4 mg capsule (Flomax) 0.4 mg PO QPM #90 caps 05/01/24 11/06/24 Rx folic acid 1 mg tablet 1 mg PO BID #180 tabs 05/20/24 11/06/24 Rx losartan 100 mg tablet 100 mg PO QAM #90 tabs 05/20/24 11/06/24 Rx isosorbide mononitrate 30 mg 30 mg PO QAM #90 tabs 05/21/24 11/06/24 Rx tablet,extended release 24 hr BiPap Machine #1 ea 05/29/24 10/27/24 Rx atenolol 50 mg tablet (Tenormin) 50 mg PO BID #180 tabs 06/12/24 11/06/24 Rx nortriptyline 25 mg capsule 50 mg (2 x 25 mg) PO HS #180 caps 06/12/24 11/06/24 Rx atorvastatin 80 mg tablet 80 mg PO HS #90 tabs 07/08/24 11/06/24 Rx pantoprazole 40 mg tablet,delayed 40 mg PO BID #180 tabs 07/21/24 11/06/24 Rx release (Protonix) ondansetron HCl 8 mg tablet 8 mg PO TID PRN nausea and 07/23/24 11/06/24 Rx vomiting #30 tabs fluticasone fur. 100 mcg-umeclid 1 inh inhalation QAM 90 days #90 09/08/24 11/06/24 Rx 62.5 mcg-vilant 25 mcg puffs inhalat.powder (Trelegy Ellipta) metoclopramide HCl 10 mg tablet 10 mg PO QID #120 tabs 09/22/24 11/06/24 Rx (Reglan) bumetanide 1 mg tablet 1 mg PO BID #180 tabs 09/29/24 11/06/24 Rx hydrocodone-homatropine 5 mg-1.5 1 tab PO BID PRN cough #60 tabs 10/20/24 11/06/24 Rx mg tablet oxycodone-acetaminophen 5 mg-325 1 - 2 tab PO DAILY PRN Pain 30 10/20/24 11/06/24 Rx mg tablet (Percocet) days #60 tabs dutasteride 0.5 mg capsule 0.5 mg PO QAM 11/06/24 11/06/24 History famotidine 20 mg tablet 20 mg PO .MORNING AND LUNCH 11/06/24 11/06/24 History famotidine 40 mg tablet 40 mg PO HS 11/06/24 11/06/24 History insulin aspart U-100 100 unit/mL 0 sliding scale dose subcut UD 11/06/24 11/06/24 History (3 mL) subcutaneous pen (Novolog FlexPen U-100 Insulin aspart) insulin degludec 100 unit/mL (3 38 unit subcut BID 11/06/24 11/06/24 History mL) subcutaneous pen (Tresiba FlexTouch U-100 insulin) promethazine 25 mg tablet 25 mg PO Q6H PRN n/v 11/06/24 11/06/24 History sucralfate 1 gram tablet 1 g PO QID 11/06/24 11/06/24 History Patient History Medical History Aspiration pneumonia Fall Elevated bilirubin Family history of colon cancer DM type 1 (diabetes mellitus, type 1) History of angiography Premature ventricular beats Sepsis hx of History of subarachnoid hemorrhage 2013; memory/cognitive deficits (reports total of 3 strokes but only known event was in 2013 -- remaining strokes were incidental findings) CAD (coronary artery disease), [facility] [place] coronary artery PAD (peripheral artery disease) BPH (benign prostatic hyperplasia) Abnormal CT scan of lung Chronic diastolic CHF (congestive heart failure) pt unable to verify Urinary retention Migraine Microcytic anemia Hyperlipidemia Hypertension Ischemic colitis Over 10 years ago (before 2007) Angioedema Asthma uses PRN inh daily Surgical History History of esophagogastroduodenoscopy (EGD) Difficult airway for intubation reports he was told he was a difficult intubation after rectal abscess surgery at [facility] [place]. says he has been intubated since then without issues; denies problems prior to that procedure, as well. History of vasectomy History of tonsillectomy and adenoidectomy History of hand surgery Hand Incision Tendon Sheath of a Finger History of rectal abscess I&D History of transurethral resection of prostate History of appendectomy History of eye surgery multiple History of ventral hernia repair H/O colonoscopy last 2019 Family History Mother Hypertension Grandfather (Paternal) Colon cancer Prostate cancer Brother Brain cancer Diabetes Bone cancer Kidney disease Lung cancer Son Diabetes Lung cancer Father Hemorrhagic stroke Hypertension Other Breast cancer No family history of adverse response to anesthesia Testicular cancer Denies family history of Ovarian cancer Myocardial infarction Social History Smoking Status: Former smoker Tobacco Type: Cigarettes Age Started Using Tobacco: 16; Age Quit Using Tobacco: 49; packs per day: 1.5; Second Hand Exposure: No; Do You Dip or Chew Tobacco: No; Hx Alcohol Use: Yes Alcohol type: hard liquor Hx Substance Use: No Preferred Language: Chinese Communication Ability: Effective Communication Ability Comment: Pt. 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 Beliefs That Will Affect Care: None marital status: Current Living Situation: Spouse current occupational status: disabled How many Children do You have: 1 Feels Safe at Home: Yes Safety Concerns: Feels Safe At This Time Childhood Exposure to Second-Hand Smoke: Yes Diet: regular Diet Comment: regular Dental Care, Regularly: Yes Physical Activity Frequency: Does not Exercise Seatbelt Use: always Sunscreen Use: Yes Assistive Devices: BiPap and Cane Assistive Devices Comment: white cane Review of Systems Review of Systems: All systems reviewed & are unremarkable except as noted in HPI & below Physical Exam Physical Exam: Constitutional: Patient appears to be of their stated age. Patient is in no apparent distress. Patient is well-developed. Eyes: Pupils are equal round and reactive to light. Conjunctivae are normal. Anicteric sclera. Ears nose, mouth and throat: Mallampati class 2. Normal posterior oropharynx. Uvula is midline. Neck: Trachea is midline. Visual inspection is normal. Respiratory: Mild rhonchi in the lower lobes bilaterally. Prolonged phase of exhalation. Cardiovascular: Regular rate and rhythm. No murmurs. No edema. Gastrointestinal: Normal bowel sounds, soft, nontender and nondistended. No hepatosplenomegaly noted. Musculoskeletal: No cyanosis. Patient is able to move all extremities. Strength is 5 out of 5 in the upper and lower extremities. Skin: No rashes, warm dry and intact. Neurologic: No obvious focal neurological deficits seen. Legally blind. Psychiatric: Alert and oriented x3 with a euthymic affect. Results & Data Results & Data Vital Signs (Past 12 Hours) Vital Signs Temp Pulse Pulse Resp BP Pulse Ox O2 Del Method 11/08/24 13:00 68 11/08/24 11:32 36.6 C 68 18 126/71 98 Room Air 11/08/24 07:50 36.6 C 72 18 159/73 H 96 Room Air 11/08/24 03:25 36.5 C 65 18 95 Room Air PG Care Time/CCT Total # of Minutes Spent Total Time Spent with Patient: Total time spent is greater than 50% in coordination of care (as documented) at patient's floor/unit and/or counseling patient: Coding Level of Care Code 75330 INT INP/OBS CARE 255MIN Diagnoses Hemoptysis R04.2 Community acquired pneumonia J18.9 Complex sleep apnea syndrome G47.31
[2024-11-08] MEDS: oxyCODONE/ACETAMINOPHEN 5mg/325mg TAB PO PRN (17:52)
[2024-11-09 06:41] LABS: Basophils # (auto) 0.05 K/uL (0.00-0.20); Basophils % (auto) 0.9 %; Eosinophils # (auto) 0.14 K/uL (0.00-0.50); Eosinophils % (auto) 2.6 %; Hematocrit (blood only) 29.7 % (42.0-52.0); Hemoglobin 10.2 g/dl (14.0-18.0); Immature Granulocytes # (auto) 0.03 K/uL (0.01-0.20); Immature Granulocytes % (auto) 0.6 %; Lymphocytes # (auto) 1.64 K/uL (1.20-3.40); Lymphocytes % (auto) 30.1 %; Mean Corpuscular Hemoglobin 31.4 pg (25.0-34.0); Mean Corpuscular Hgb Conc 34.3 g/dL (32.0-36.0); Mean Corpuscular Volume 91.4 fL (80.0-100.0); Mean Platelet Volume 9.7 fL (9.4-12.4); Monocytes # (auto) 0.65 K/uL (0.11-0.59); Monocytes % (auto) 11.9 %; Neutrophils # (auto) 2.94 K/uL (1.40-6.50); Neutrophils % (auto) 53.9 %; Platelet Count 343 K/uL (130-400); RDW Coefficient of Variation 12.7 % (11.5-14.5); RDW Standard Deviation 42.1 fL (36.4-46.3); Red Blood Count 3.25 M/uL (4.70-6.10); White Blood Count 5.45 K/ul (4.8-10.8)
[2024-11-09 07:05] LABS: Creatinine Clr Calc Pharmacy 73.6 ml/min; Potassium 3.8 mmol/L (3.5-5.1)
[2024-11-09] MEDS: INSULIN ASPART PER UNIT CHARGE SC SCH ×2 (08:17→12:05)
[2024-11-09] MEDS: predniSONE 20 MG TAB PO SCH (08:18)
--- NOTE | 2024-11-09 10:23 | Hospitalist Progress Note ---
Date of Service November 09, 2024 Assessment & Plan (1) Hemoptysis: Plan: -likely 2nd to PNA -con't rocephin/doxycycline -monitor sputum -h/h stable -CTA chest shows No pulmonary embolus noted. Impression pneumonitis with bilateral multifocal lower lobe pneumonia. -pulmonary consult appreciated -symptoms likely 2nd to bronchial PNA -started prednisone 40mg daily to help with airway inflammation -Pulmonary recommending observation till Friday 11/10 for continued hemoptysis -If present, strongly considering bronchoscopy to r/o alveolar hemorrhage -If resolved, d/c home with abx and steroid taper. (2) Pneumonia: Plan: Rocephin 2000 mg IV q24h Doxycycline 100 mg IV q12h Mucinex BID Supplemental oxygen (3) Unstable angina: Plan: Cardiology consult appreciated troponin elevation likely 2nd to demand ischemia from PNA (4) Diabetes mellitus type 1, uncontrolled: Plan: Patient is normally on Tresiba 38 units BID Lantus BID + SSI while inpatient T1DM diet BSG ACHS (5) Hyponatremia: Plan: Chronic; NA 126 on arrival, now improved to 133 Continue sodium chloride 2 g tablets TID (6) Elevated troponin: Plan: -cardiology consult appreciated, 2nd to demand ischemia (7) Blindness: Plan: noted Plan -started prednisone 40mg daily to help with airway inflammation -Pulmonary recommending observation till Friday 11/10 for continued hemoptysis -If present, strongly considering bronchoscopy to r/o alveolar hemorrhage -If resolved, d/c home with abx and steroid taper. Admission and Anticipated Discharge Date Admission Date: November 06, 2024 Subjective Pt states he did not have any episodes of blood tinged or blood clots in his sputum. Review of Systems Review of Systems: CONST: Negative for fever, body aches and chills. HENT: Negative for neck pain/stiffness, headache, congestion, sore throat, swelling. EYES: Negative for discharge/pain or vision changes. RESP: Negative for cough/hemoptysis and shortness of breath. CV: Negative chest pain, difficulty breathing, palpitations. ABD: Negative pain, nausea, vomiting. : Negative increase frequency, dysuria, blood in urine or stool. MUSC: Negative for muscle aches, edema. SKIN: Negative rash, lesions/sores. NEURO: Negative headache, dizziness, weakness. Physical Exam Physical Exam: GENERAL APPEARANCE NAD, activity normal for age, well developed/ well nourished, no cyanosis, pallor, or diaphoresis. EYES lids/conjunctiva normal. EARS/NOSE/THROAT Mucous membranes moist, nares normal, lips/teeth normal uvula midline without oral pharyngeal erythema, exudate or swelling TMs normal bilaterally. No lymphangitis/lymphedema. HEAD/NECK normocephalic atraumatic, no facial trauma, neck is supple. RESPIRATORY respiratory effort normal, speaks in full sentences, no tripod position, no accessory muscle use. Lungs clear to auscultation without rhonchi, wheezes, rales CARDIAC Regular rate and rhythm, no edema. ABDOMINAL Soft, ND/NT. No evidence of fluid wave. No pulsatile masses on exam, rebound tenderness, Davila sign or pain over Mcburney's point. MUSCLES/EXTREMITIES No abnormal range of motion, no swelling. SKIN Warm, pink and dry. No rashes, dermatoses, petechiae or lesions. NEUROLOGICAL Speech is clear and appropriate. Normal level of consciousness. Gait and coordination are normal. 5/5 strength in all extremities. PSYCH Normal mood and affect. Judgement/competence is appropriate Results & Data Results & Data Vital Signs (Past 12 Hours) Vital Signs Temp Pulse Resp BP Pulse Ox O2 Del Method 11/09/24 07:43 36.5 C 73 18 145/83 H 98 Room Air 11/09/24 02:12 36.4 C L 65 14 159/71 H 94 CPAP 11/08/24 23:38 36.6 C 76 14 153/75 H 97 CPAP PG Care Time/CCT Total # of Minutes Spent Total Time Spent with Patient: Total time spent is greater than 50% in coordination of care (as documented) at patient's floor/unit and/or counseling patient: Coding Level of Care Code 98923 SUB INP/OBS CARE 2/35MIN Diagnoses Hemoptysis R04.2 Pneumonia J18.9 Unstable angina I20.0 Uncontrolled type 1 diabetes mellitus with hyperglycemia E10.65 Glycemic state: with hyperglycemia Hyponatremia E87.1 Elevated troponin R79.89 Blindness H54.7 (4) Diabetes mellitus type 1, uncontrolled Glycemic state: with hyperglycemia Qualified Code(s): E10.65 - Type 1 diabetes mellitus with hyperglycemia
--- NOTE | 2024-11-09 12:52 | Pulmonology Progress Note ---
Date of Service November 09, 2024 Assessment & Plan (1) Hemoptysis: Plan: Small volume hemoptysis seems to be resolving likely secondary to bronchial pneumonia. Continue 40 mg of prednisone daily for the next 5 days to help with airway inflammation and interstitial pneumonia. Can transition to p.o. antibiotics today. Continue bronchodilators. (2) Community acquired pneumonia: Plan: Recommend transition to p.o. antibiotics and completing a course of 7 days total of antibiotics. (3) Complex sleep apnea syndrome: Plan: Continue BiPAP therapy. Follows with Dr. Orosco of the pulmonary clinic as an outpatient. (4) Abnormal CT scan, chest: Plan: Groundglass changes in the lower lobes likely related to pneumonia. Recommend follow-up CT chest without contrast in 8 to 10 weeks to ensure resolution. Plan Otherwise, pulmonary sign off at this time. Please call with questions. Thank you for the consult. Admission and Anticipated Discharge Date Admission Date: November 06, 2024 Subjective Patient seen examined. Minimal cough today. Very scant red-tinged admixed with sputum when coughing. No chest pain or shortness of breath. No fevers or chills. Review of Systems Review of Systems: All systems reviewed & are unremarkable except as noted in HPI & below Physical Exam Physical Exam: Constitutional: Patient appears to be of their stated age. Patient is in no apparent distress. Patient is well-developed. Eyes: Pupils are equal round and reactive to light. Conjunctivae are normal. Anicteric sclera. Ears nose, mouth and throat: Mallampati class 2. Normal posterior oropharynx. Uvula is midline. Neck: Trachea is midline. Visual inspection is normal. Respiratory: Clear bilaterally. Prolonged phase of exhalation. Cardiovascular: Regular rate and rhythm. No murmurs. No edema. Gastrointestinal: Normal bowel sounds, soft, nontender and nondistended. No hepatosplenomegaly noted. Musculoskeletal: No cyanosis. Patient is able to move all extremities. Strength is 5 out of 5 in the upper and lower extremities. Skin: No rashes, warm dry and intact. Neurologic: No obvious focal neurological deficits seen. Legally blind. Psychiatric: Alert and oriented x3 with a euthymic affect. Results & Data Results & Data Vital Signs (Past 12 Hours) Vital Signs Temp Pulse Resp BP Pulse Ox O2 Del Method 11/09/24 11:32 36.5 C 73 18 146/71 H 100 Room Air 11/09/24 07:43 36.5 C 73 18 145/83 H 98 Room Air 11/09/24 02:12 36.4 C L 65 14 159/71 H 94 CPAP PG Care Time/CCT Total # of Minutes Spent Total Time Spent with Patient: Total time spent is greater than 50% in coordination of care (as documented) at patient's floor/unit and/or counseling patient: Coding Level of Care Code 76726 SUB INP/OBS CARE 11/15MIN Diagnoses Hemoptysis R04.2 Community acquired pneumonia J18.9 Complex sleep apnea syndrome G47.[address] scan, chest R93.89
[2024-11-10 06:23] LABS: Hematocrit (blood only) 30.8 % (42.0-52.0); Hemoglobin 10.6 g/dl (14.0-18.0); Mean Corpuscular Hemoglobin 31.3 pg (25.0-34.0); Mean Corpuscular Hgb Conc 34.4 g/dL (32.0-36.0); Mean Corpuscular Volume 90.9 fL (80.0-100.0); Mean Platelet Volume 9.8 fL (9.4-12.4); Platelet Count 373 K/uL (130-400); RDW Coefficient of Variation 12.7 % (11.5-14.5); RDW Standard Deviation 41.5 fL (36.4-46.3); Red Blood Count 3.39 M/uL (4.70-6.10); White Blood Count 8.17 K/ul (4.8-10.8)
[2024-11-10 06:32] LABS: BUN Creatinine Ratio 21.7 (10-20); Calcium 9.3 mg/dl (8.6-10.3); Creatinine Clr Calc Pharmacy 69.5 ml/min; Potassium 4.2 mmol/L (3.5-5.1)
[2024-11-10 07:18] VITALS: RESP 19; O2SAT 96
[2024-11-10] MEDS: LANTUS PER UNIT CHARGE SC SCH (07:59)
[2024-11-10 10:46] VITALS: BP 163/68; PULSE 72; TEMP 98.1
--- NOTE | 2024-11-10 13:08 | Discharge Summary ---
Discharge Summary Date of Service November 10, 2024 Principal Dx & Hospital Course #1 = Principal Diagnosis (1) Hemoptysis: -likely 2nd to PNA -con't rocephin/doxycycline -monitor sputum -h/h stable -CTA chest shows No pulmonary embolus noted. Impression pneumonitis with bilateral multifocal lower lobe pneumonia. -pulmonary consult appreciated -symptoms likely 2nd to bronchial PNA -started prednisone 40mg daily to help with airway inflammation -Pulmonary recommending observation till Friday 11/10 for continued hemoptysis -If present, strongly considering bronchoscopy to r/o alveolar hemorrhage -If resolved, d/c home with abx and steroid taper. (2) Pneumonia: Rocephin 2000 mg IV q24h Doxycycline 100 mg IV q12h Mucinex BID Supplemental oxygen (3) Unstable angina: Cardiology consult appreciated troponin elevation likely 2nd to demand ischemia from PNA (4) Diabetes mellitus type 1, uncontrolled: Patient is normally on Tresiba 38 units BID Lantus BID + SSI while inpatient T1DM diet BSG ACHS (5) Hyponatremia: Chronic; NA 126 on arrival, now improved to 133 Continue sodium chloride 2 g tablets TID (6) Elevated troponin: -cardiology consult appreciated, 2nd to demand ischemia (7) Blindness: noted Plan -started prednisone 40mg daily to help with airway inflammation -Pulmonary recommending observation till Friday 11/10 for continued hemoptysis -If present, strongly considering bronchoscopy to r/o alveolar hemorrhage -If resolved, d/c home with abx and steroid taper. Admission HPI Per Admitting Provider Sam is a pleasant 64-year-old male with PMH of T1DM, LUZMA, COPD, GERD, HTN, CVA, subarachnoid hemorrhage in 2013 (?spontaneous/non-traumatic), chronic venous insufficiency, neurogenic bladder, CAD, CKD, and urinary retention. He presented on 11/06 for hemoptysis. Patient is legally blind. While he has not noticed any blood in his cough, his (Laine) noticed bright red blood in his cough yesterday. Patient has been coughing x 2 days, but only developed red/thick blood and cough yesterday. Additionally, he has had intermittent substernal chest pain over the past 2 days. It developed 1 night after he ate spaghetti with red sauce. He does have a history of GERD and initially thought it might be secondary to what he ate, however after taking Mylanta, he developed no relief. This was abnormal for him. He then developed intermittent chest pain of the next 2 days, which will occasionally occur at rest. He rates the pain 5/10 at its worst. Pain can last for seconds to minutes at a time. He characterizes it as a dull/burning pain. Patient did take oxycodone 1 day for the pain, but he also takes this for his headaches. No radiation of the pain to the shoulders/jaw/down the arm/ordered middle back between the shoulder blades. He denies pleuritic chest pain or pain with deep breaths. Patient did see a chiropractor last night for an adjustment, however he denies any recent muscle strains, injuries to the chest wall, or falls. He ambulates with a weighted cane at baseline, but does not need to use it in the house. No sick contacts to his knowledge. He has had ongoing CAGLE when going up steps for the past 30 years. He denies SOB at rest, but did notice some SOB when he was laying flat the past couple days. Additionally, he has had liquidy diarrhea for the past couple days, for which she is taking Imodium. His diarrhea is always dark/tarry, which he attributes to his iron supplements. Patient took all of his regular morning medicine today except for his oxycodone. No recent change in medications. He has no prior history of DVT/PE. He does have a family history of DVT/PE (the patient's aunt recently had pulmonary emboli in all 5 lobes). Additionally, patient has had swelling in his right lower extremity over the past few days. No recent injury to the leg, however he does say that it is "70%" occluded throughout his leg. He denies any recent smoking, tobacco use, or alcohol use. Former smoker: Quit 06/30/2009. He denies any allergies to antibiotics. Patient is chest pain-free at time of admission. Patient is hypertensive at 151/69 at time of admission; nontachycardic; nonhypoxic vitals otherwise stable. ED course: Ceftriaxone 1000 mg IV Doxycycline 100 mg IV ROS: Patient endorses headaches, productive cough, hemoptysis, CAGLE, abdominal discomfort, nausea, diarrhea, black stool (attributes to iron supplements), pain in the right knee (chronic), swelling in the right leg, and chronic neuropathy in the feet. Patient denies fever, chills, night-sweats, syncope, chest pain at present, chest palpitations, pleuritic CP, SOB at rest, vomiting, blood in the urine, burning with urination, dysuria, or numbness/tingling in the right leg. Discharge Plan Discharge Items Patient Disposition: Home - Self-Care Reason For Visit: PNA, HEMOPTYSIS Discharge Diagnosis: pneumonia Activity: Resume your previous activity Non-emergency contact: Primary Care Provider Call non-emergency contact if: you have any medication questions Follow-up/Referrals: Josh Squires III, CRNP [Primary Care Provider] - Diet: Regular Addtl Attending Provider Instructions: Administer antibioticat least 2 hours before famotidine (pepcid) and pantoprazole. Recommend close followup with your PCP in 1-2 weeks. Pending Studies at Discharge: No Stand-Alone Forms: My [facility] [place], Smoking Cessation Medications and DC Order Prescriptions: New cefuroxime axetil 500 mg tablet 500 mg PO BID Qty: 6 0RF Rx Instructions: first dose 11/11 in the AM doxycycline hyclate 100 mg Capsule 100 mg PO BID Qty: 7 0RF Rx Instructions: first dose on 11/10 in the evening. prednisone 10 mg tablet See Rx Instructions .ROUTE .COMPLEX Qty: 12 0RF Rx Instructions: Once daily by mouth take 3 tablets for 2 days, then 2 tablets for 2 days then 1 tablet for 2 days Continued sodium chloride 1 gram tablet 2,000 mg PO TID Rx Instructions: 2 in qam, 1 lunch, 1 dinner, and 2 at night levothyroxine 175 mcg tablet 175 mcg PO QAM Qty: 90 3RF albuterol sulfate 90 mcg/actuation HFA aerosol inhaler 2 puff inhalation Q4H PRN (Reason: Shortness Of Breath) Qty: 8.5 3RF amlodipine 2.5 mg tablet 2.5 mg PO QAM Qty: 90 3RF folic acid 1 mg tablet 1 mg PO BID Qty: 180 3RF losartan 100 mg tablet 100 mg PO QAM Qty: 90 3RF isosorbide mononitrate 30 mg tablet extended release 24 hr 30 mg PO QAM Qty: 90 3RF Rx Instructions: take 1 tablet by mouth every morning atenolol [Tenormin] 50 mg tablet 50 mg PO BID Qty: 180 3RF nortriptyline 25 mg capsule 50 mg PO HS Qty: 180 3RF Rx Instructions: take 2 capsules by mouth at bedtime atorvastatin 80 mg tablet 80 mg PO HS Qty: 90 3RF pantoprazole [Protonix] 40 mg tablet,delayed release (DR/EC) 40 mg PO BID Qty: 180 3RF ondansetron HCl 8 mg tablet 8 mg PO TID PRN (Reason: nausea and vomiting) Qty: 30 1RF metoclopramide HCl [Reglan] 10 mg tablet 10 mg PO QID Qty: 120 5RF bumetanide 1 mg tablet 1 mg PO BID Qty: 180 3RF oxycodone-acetaminophen [Percocet] 5-325 mg tablet 1 - 2 tab PO DAILY PRN (Reason: Pain) 30 Days Qty: 60 0RF hydrocodone-homatropine 5-1.5 mg tablet 1 tab PO BID PRN (Reason: cough) Qty: 60 0RF levalbuterol HCl 0.63 mg/3 mL solution for nebulization 0.63 mg inhalation Q6H PRN (Reason: shortness of breath or wheezing) Qty: 360 5RF (DME) BiPap Machine Misc .Route Qty: 1 0RF Rx Instructions: BiPAP 15/8, heated humidification, compliance download capabilities. Current machine greater than 5 years old and unable to provide compliance data: [facility] [place] Tiltap tamsulosin [Flomax] 0.4 mg capsule 0.4 mg PO QPM Qty: 90 3RF aspirin 81 mg tablet,delayed release (DR/EC) 81 mg PO QAM ferrous sulfate 325 mg (65 mg iron) tablet 325 mg PO BID Excedrin Migraine 250-250-65 mg tablet 1 tab PO Q6H PRN (Reason: Migraine Headache) Trelegy Ellipta 100-62.5-25 mcg blister with device 1 inh INHALATION QAM 90 Days Qty: 90 3RF glucosamine sulfate [Glucosamine] 500 mg Tablet 500 mg PO QAM acetaminophen [Tylenol] 325 mg Capsule 325 mg PO Q6H PRN (Reason: Pain) Probiotic 3 billion cell Capsule 3,000 mmu cells PO QAM magnesium 200 mg tablet 400 mg PO QAM fexofenadine [[place] Allergy] 180 mg Tablet 180 mg PO QAM Senecot 125 mg PO BID famotidine 20 mg Tablet 20 mg PO .MORNING AND LUNCH insulin aspart U-100 [Novolog FlexPen U-100 Insulin] 100 unit/mL (3 mL) insulin pen 0 sliding scale dose SUBCUT UD Rx Instructions: 1-4 CARBS IS 1 UNIT subcut daily; SLIDING SCALE; FOR EVERY 20 CARBS, ADD ANOTHER 1 UNIT OF INSULIN 2 EXTRA 2 UNITS FOR 150-170 CARBS AND IF OVER 150, ADD 2 UNITS FOR EVERY 20 POINTS OVER FOR HIS BLOOD SUGAR insulin degludec [Tresiba FlexTouch U-100] 100 unit/mL (3 mL) insulin pen 38 unit subcut BID sucralfate 1 gram tablet 1 g PO QID Rx Instructions: TAKE 1 TABLET BY MOUTH FOUR TIMES A DAY BEFORE MEALS AND BEFORE BEDTIME FOR 10 DAYS, CRUSH AND MIX WITH 15 ML OF WATER famotidine 40 mg tablet 40 mg PO HS promethazine 25 mg tablet 25 mg PO Q6H PRN (Reason: n/v) Rx Instructions: take 1 tablet by mouth every 6 hours if needed for nausea and vomiting dutasteride 0.5 mg capsule 0.5 mg PO QAM Discharge Orders: Discharge Order (Routine); Ordered 11/10/24 Ordered By: Kristian Bustamante Admission Data Admit Date/Time: 11/06/24 12:34 Attending Provider: Kristian Bustamante Admit Provider: Se Abdalla Primary Care Provider: Josh Squires III Other Providers: Sharath Greenfield; Se Abdalla; Gabo Benson Hospital Stay Data Consultations 11/06/24 11:17 ED Decision to Admit Stat 11/06/24 12:09 Consult Cardiology Routine 11/08/24 09:41 Consult Pulmonology Routine Diagnostic Imagining Performed 11/06/24 08:07 CT abd pelvis IV con only Stat 11/06/24 11:41 US venous doppler LE RT Stat 11/08/24 07:42 CTA chest w con [CT angio chest w con] Routine Pending Results Patient Have Any Pending Studies at Discharge: No Discharge Instructions Given to Patient (Per Discharging Provider) Administer antibioticat least 2 hours before famotidine (pepcid) and pantoprazole. Recommend close followup with your PCP in 1-2 weeks. Coding Diagnoses Hemoptysis R04.2 Pneumonia J18.9 Unstable angina I20.0 Uncontrolled type 1 diabetes mellitus with hyperglycemia E10.65 Glycemic state: with hyperglycemia Hyponatremia E87.1 Elevated troponin R79.89 Blindness H54.7
[2024-11-10] MEDS ORDERED: DOXYCYCLINE HYCLATE 100 MG CAP PO SCH (21:00)
== END 2024-11-10 14:16 | disposition home or self-care (01) | DRG 194 ==
LOC: ED 07:34 → 2E 12:34 → SUATTDRO 12:34 → 2E 14:34

== ENCOUNTER 2025-01-13 17:25 | Inpatient (IN) ==
[2025-01-13 18:07] LABS: Basophils # (auto) 0.04 K/uL (0.00-0.20); Basophils % (auto) 0.5 %; Eosinophils # (auto) 0.06 K/uL (0.00-0.50); Eosinophils % (auto) 0.8 %; Hemoglobin 11.3 g/dl (14.0-18.0); Immature Granulocytes # (auto) 0.02 K/uL (0.01-0.20); Immature Granulocytes % (auto) 0.3 %; Lymphocytes # (auto) 1.83 K/uL (1.20-3.40); Lymphocytes % (auto) 24.7 %; Mean Corpuscular Hgb Conc 34.2 g/dL (32.0-36.0); Mean Corpuscular Volume 90.7 fL (80.0-100.0); Mean Platelet Volume 9.3 fL (9.4-12.4); Monocytes # (auto) 0.49 K/uL (0.11-0.59); Monocytes % (auto) 6.6 %; Neutrophils # (auto) 4.98 K/uL (1.40-6.50); Neutrophils % (auto) 67.1 %; Platelet Count 425 K/uL (130-400); RDW Coefficient of Variation 12.9 % (11.5-14.5); RDW Standard Deviation 42.5 fL (36.4-46.3); Red Blood Count 3.64 M/uL (4.70-6.10); White Blood Count 7.42 K/ul (4.8-10.8)
[2025-01-13 18:27] LABS: Alanine Aminotransferase 16 U/L (7-52); Albumin Globulin Ratio 1.4 (0.9-2); Albumin Level 4.4 gm/dl (3.4-5.0); Alkaline Phosphatase 135 U/L (34-104); Anion Gap 5 (3-11); Aspartate Aminotransferase 18 U/L (13-39); BUN Creatinine Ratio 15.5 (10-20); Bilirubin,Total 0.4 mg/dl (0.2-1.0); Blood Urea Nitrogen 16 mg/dl (6-23); Calcium 8.9 mg/dl (8.6-10.3); Carbon Dioxide 28 mmol/L (21-32); Chloride 94 mmol/L (98-107); Globulin 3.2 gm/dl (2.5-4.0); Glucose 128 mg/dl (70-99(Fasting)); Potassium 4.5 mmol/L (3.5-5.1); Sodium 127 mmol/L (136-145); Total Protein 7.6 gm/dl (6.0-8.3)
[2025-01-13 18:29] LABS: INR 0.9 (0.9-1.1); Partial Thromboplastin Time 28 Seconds (21-31); Prothrombin Time 10.3 Seconds (9.0-12.0)
[2025-01-13 18:33] LABS: Troponin I High Sensitivity < 2.3 pg/ml (0-20)
[2025-01-13 19:30] LABS: D Dimer 420 ug/L FEU (0-500)
--- NOTE | 2025-01-13 19:53 | XRay Report ---
Clinical History: Pneumonia Technique: 2 frontal views of the chest were obtained Comparison is made to the prior examination dated 11/06/2024 Findings: There is new right lung base infiltrate, concerning for pneumonia. The heart size is at the upper limit of normal. No pleural effusion or pneumothorax is seen. There is no definite pulmonary nodule. No fracture is noted. No foreign body is seen Impression: Right lower lobe pneumonia ACT 112: Positive. There are findings on this exam that require communication between the performing entity and the patient following Patient Test Result Information Act ([place] ACT 112) guidelines. Electronically signed by Paresh Prasad 01-13-2025 7:53 PM
[2025-01-13 20:23] LABS: Adenovirus PCR Not Detected (NotDetected); Bordetella parapertussis PCR Not Detected (NotDetected); Bordetella pertussis PCR Not Detected (NotDetected); Chlamydia pneumoniae PCR Not Detected (NotDetected); Coronavirus 229E PCR Not Detected (NotDetected); Coronavirus CoV-2 (COVID19)PCR Not Detected (NotDetected); Coronavirus HKU1 PCR Not Detected (NotDetected); Coronavirus NL63 PCR Not Detected (NotDetected); Coronavirus OC43PCR Not Detected (NotDetected); Human Metapneumovirus PCR Not Detected (NotDetected); Influenza A PCR Not Detected (NotDetected); Influenza B PCR Not Detected (NotDetected); Mycoplasma pneumoniae PCR Not Detected (NotDetected); Parainfluenza Virus 1 PCR Not Detected (NotDetected); Parainfluenza Virus 2 PCR Not Detected (NotDetected); Parainfluenza Virus 3 PCR Not Detected (NotDetected); Parainfluenza Virus 4 PCR Not Detected (NotDetected); Respiratory Syncytial VirusPCR Not Detected (NotDetected); Rhinovirus/Enterovirus PCR Not Detected (NotDetected)
[2025-01-13] MEDS: ACETAMINOPHEN 500 MG TAB PO STA (20:24)
[2025-01-13] MEDS: AZITHROMYCIN 250 MG TAB PO ONE (20:48)
[2025-01-13] MEDS: cefTRIAXone SODIUM 2,000 MG/50 ML BAG IV STA (20:54)
[2025-01-13] MEDS: SODIUM CHLORIDE 0.9% 1,000 ML IV SCH (20:54)
--- NOTE | 2025-01-13 21:40 | History & Physical Report ---
Date of Service January 13, 2025 Assessment & Plan (1) Community acquired pneumonia: (2) Hyponatremia: (3) Chronic headache: (4) CKD (chronic kidney disease) stage 2, GFR 60-89 ml/min: (5) Diabetes mellitus type 1, uncontrolled: (6) COPD (chronic obstructive pulmonary disease): (7) Hypothyroidism: (8) Hypertension: (9) Sleep apnea: Plan Pt is a 64 yo male with a past med hx of blindness, CVA stroke x3 last one in 2013, chronic asymptomatic hyponatremia, GERD, solitary kidney, CAD, CKD, DMT1, LUZMA on bipap, COPD, HTN, and hypothyroidism who presents to the hospital on 01/13 for URI symptoms the last few weeks with SOB on exertion, admitted for RLL pneumonia. #Pneumonia, RLL #COPD - CXR on admission showed RLL opacity, WBC count 7 - given dose of rocephin in ER, will continue this - MRSA nares pending - given COPD and wheezing on exam, will add azithromycin po and prednisone 40 mg po daily - continue home inhalers #Hyponatremia - Na on admission 127, his baseline appears to be 125-130 - no nausea/vomiting/dizziness/weakness from this - continue home sodium pills #HTN - not controlled on admission, BPs up into low 200s systolic in the room, HR 50- 60s - continued home meds but as he takes most in the am and reportedly last took them the morning of admission, will do 1 time dose hydralazine #DMT1 - at home takes long acting 38 units BID, will reduce to 20 units BID in the hospital - also will do novolog (he does short acting at home also) - am HA1c ordered #LUMZA - continue bipap HS #Hypothyroidism - continue home levothyroxine #Chronic headache - takes 1-2 5mg percocet at home daily, will continue this - Excedrin as needed VTE: lovenox History of Present Illness Chief Complaint: Pneumonia in COPD pt Primary Care Provider: Josh Squires III, PATRIC Pt is a 64 yo male with a past med hx of blindness, CVA stroke x3 last one in 2013, chronic asymptomatic hyponatremia, GERD, solitary kidney, CAD, CKD, DMT1, LUZMA on bipap, COPD, HTN, and hypothyroidism who presents to the hospital on 01/13 for URI symptoms the last few weeks with SOB on exertion, admitted for RLL p [place]. Pt seen at bedside with and daughter present. He states symptoms started with typical cold symptoms; cough, congestion about 3 weeks ago. Max temp at home per was 99.5 F. She also states his cough has been productive with yellowish nonbloody sputum. No chest pain. No SOB at rest but with walking around he does get very SOB. No abdominal pain or diarrhea but did note his stools this morning were soft and he did go 3 times this morning. He does not use oxygen at home baseline for his COPD. He does use bipap daily, usually HS but in general makes sure to use it at least once daily for some bit of time. He does note a headache but it has been ongoing since his last stroke in 2013 and he takes percocet at home for this. Allergies Allergy/AdvReac Type Severity Reaction Status Date / Time lisinopril Allergy Severe " TONGUE Verified 01/13/25 19:36 SWELLS"--ANGIOEDEMA lorazepam AdvReac Intermediate Hallucinati Verified 01/13/25 19:36 ons Home Medications Medication Instructions Recorded Confirmed Type lactobacillus combination no.4 3 3,000 mmu cells PO QAM 08/06/18 01/13/25 History billion cell capsule (Probiotic) aspirin 81 mg tablet,delayed 81 mg PO QAM 06/09/19 01/13/25 History release magnesium 200 mg tablet 400 mg PO QAM 06/09/19 01/13/25 History glucosamine sulfate 500 mg tablet 500 mg PO QAM 07/05/19 01/13/25 History (Glucosamine) levalbuterol HCl 0.63 mg/3 mL 0.63 mg (3 mL) inhalation Q6H PRN 06/08/20 01/13/25 Rx solution for nebulization shortness of breath or wheezing #360 mL ferrous sulfate 325 mg (65 mg 325 mg PO BID 03/25/21 01/13/25 History iron) tablet fexofenadine 180 mg tablet 180 mg PO QAM 08/28/22 01/13/25 History ([facility] Allergy) levothyroxine 175 mcg tablet 175 mcg PO QAM #90 tabs 11/06/23 01/13/25 Rx mgxddhs-sqqbypvtukavh-gsoxokxc 250 1 tab PO Q6H PRN Migraine Headache 01/08/24 01/13/25 History mg-250 mg-65 mg tablet (Excedrin Migraine) amlodipine 2.5 mg tablet 2.5 mg PO QAM #90 tabs 04/30/24 01/13/25 Rx tamsulosin 0.4 mg capsule (Flomax) 0.4 mg PO QPM #90 caps 05/01/24 01/13/25 Rx folic acid 1 mg tablet 1 mg PO BID #180 tabs 05/20/24 01/13/25 Rx losartan 100 mg tablet 100 mg PO QAM #90 tabs 05/20/24 01/13/25 Rx isosorbide mononitrate 30 mg 30 mg PO QAM #90 tabs 05/21/24 01/13/25 Rx tablet,extended release 24 hr BiPap Machine #1 ea 05/29/24 11/26/24 Rx atenolol 50 mg tablet (Tenormin) 50 mg PO BID #180 tabs 06/12/24 01/13/25 Rx nortriptyline 25 mg capsule 50 mg (2 x 25 mg) PO HS #180 caps 06/12/24 01/13/25 Rx atorvastatin 80 mg tablet 80 mg PO HS #90 tabs 07/08/24 01/13/25 Rx pantoprazole 40 mg tablet,delayed 40 mg PO BID #180 tabs 07/21/24 01/13/25 Rx release (Protonix) ondansetron HCl 8 mg tablet 8 mg PO TID PRN nausea and 07/23/24 01/13/25 Rx vomiting #30 tabs fluticasone fur. 100 mcg-umeclid 1 inh inhalation QAM 90 days #90 09/08/24 01/13/25 Rx 62.5 mcg-vilant 25 mcg puffs inhalat.powder (Trelegy Ellipta) metoclopramide HCl 10 mg tablet 10 mg PO QID #120 tabs 09/22/24 01/13/25 Rx (Reglan) bumetanide 1 mg tablet 1 mg PO BID #180 tabs 09/29/24 01/13/25 Rx hydrocodone-homatropine 5 mg-1.5 1 tab PO BID PRN cough #60 tabs 10/20/2401/13 Rx mg tablet dutasteride 0.5 mg capsule 0.5 mg PO QAM 11/06/24 01/13/25 History famotidine 20 mg tablet 20 mg PO BID 11/06/24 01/13/25 History famotidine 40 mg tablet 40 mg PO HS 11/06/24 01/13/25 History insulin aspart U-100 100 unit/mL 0 sliding scale dose subcut UD 11/06/24 01/13/25 History (3 mL) subcutaneous pen (Novolog FlexPen U-100 Insulin aspart) insulin degludec 100 unit/mL (3 38 unit subcut BID 11/06/24 01/13/25 History mL) subcutaneous pen (Tresiba FlexTouch U-100 insulin) promethazine 25 mg tablet 25 mg PO Q6H PRN n/v 11/06/24 01/13/25 History montelukast 10 mg tablet 10 mg PO DAILY 11/24/24 01/13/25 History oxycodone-acetaminophen 5 mg-325 1 - 2 tab PO DAILY PRN Pain 30 12/18/24 01/13/25 Rx mg tablet (Percocet) days #60 tabs albuterol sulfate 90 mcg/actuation 2 puff inhalation Q4H PRN 01/12/25 01/13/25 Rx aerosol inhaler Shortness Of Breath #8.5 grams acetaminophen 325 mg tablet 325 mg PO Q6H PRN PAIN/FEVER 01/13/25 01/13/25 History (Tylenol) sennosides 8.6 mg tablet (senna) 8.6 mg PO BID 01/13/25 01/13/25 History sodium chloride 1,000 mg soluble 2,000 mg PO TID 01/13/25 01/13/25 History tablet sucralfate 1 gram tablet 1 g PO ACHS 01/13/25 01/13/25 History Past Med/Surg History Problem List (Updated 01/13/25 @ 22:57 by Travis Wall MD) Hyponatremia (Acute) Pneumonia (Acute) Community acquired pneumonia Hyponatremia Mitral regurgitation Chronic headache Acquired blindness GERD (gastroesophageal reflux disease) BPH NOS w ur obs/LUTS Acquired solitary kidney (Acute) Anemia of chronic disease (Acute) CAD (coronary atherosclerotic disease) (Acute) CKD (chronic kidney disease) stage 2, GFR 60-89 ml/min (Acute) Chronic constipation (Acute) Chronic cough (Acute) Depression (Acute) Diabetes mellitus type 1, uncontrolled (Acute) Essential hypertension (Acute) Gastroparesis (Acute) Neurogenic bladder (Acute) PAD (peripheral artery disease) (Acute) Peripheral neuropathy (Acute) Sleep apnea (Acute) Hyperlipidemia (Chronic) Complex sleep apnea syndrome Edema Chronic venous insufficiency Hypertension Exposure to COVID-19 virus (Acute) Multifocal pneumonia (Acute) Chronic hyponatremia (Acute) COPD (chronic obstructive pulmonary disease) (Chronic) Hypothyroidism Medical History Unstable angina Gastric ulcer History of stroke LUZMA (obstructive sleep apnea) bipap GERD (gastroesophageal reflux disease) Aspiration pneumonia Fall Elevated bilirubin Family history of colon cancer DM type 1 (diabetes mellitus, type 1) History of angiography Premature ventricular beats Sepsis hx of History of subarachnoid hemorrhage 2013; memory/cognitive deficits (reports total of 3 strokes but only known event was in 2013 -- remaining strokes were incidental findings) CAD (coronary artery disease), [place] coronary artery PAD (peripheral artery disease) BPH (benign prostatic hyperplasia) Abnormal CT scan of lung Chronic diastolic CHF (congestive heart failure) pt unable to verify Urinary retention Migraine Microcytic anemia Hyperlipidemia Hypertension Ischemic colitis Over 10 years ago (before 2007) Angioedema Asthma uses PRN inh daily Surgical History History of esophagogastroduodenoscopy (EGD) Difficult airway for intubation reports he was told he was a difficult intubation after rectal abscess surgery at [facility]. says he has been intubated since then without issues; denies problems prior to that procedure, as well. History of vasectomy History of tonsillectomy and adenoidectomy History of hand surgery Hand Incision Tendon Sheath of a Finger History of rectal abscess I&D History of transurethral resection of prostate History of appendectomy History of eye surgery multiple History of ventral hernia repair H/O colonoscopy last 2019 Family History Mother Hypertension Grandfather (Paternal) Colon cancer Prostate cancer Brother Brain cancer Diabetes Bone cancer Kidney disease Lung cancer Son Diabetes Lung cancer Father Hemorrhagic stroke Hypertension Other Breast cancer No family history of adverse response to anesthesia Testicular cancer Denies family history of Ovarian cancer Myocardial infarction Social History Smoking Status: Former smoker Tobacco Type: Cigarettes Age Started Using Tobacco: 16; Age Quit Using Tobacco: 49; packs per day: 1.5; Second Hand Exposure: No; Do You Dip or Chew Tobacco: No; Hx Alcohol Use: No Hx Substance Use: No Preferred Language: Greenlandic Communication Ability: Effective Communication Ability Comment: Pt. is legally blind Communication Tools: Other Visual Impairment: No Limitations Hearing Ability: Hard of Hearing Sport Shoe Spike Assembler Required: Yes Beliefs That Will Affect Care: None marital status: Current Living Situation: Spouse current occupational status: disabled How many Children do You have: 1 Feels Safe at Home: Yes Safety Concerns: Feels Safe At This Time Childhood Exposure to Second-Hand Smoke: Yes Diet: regular Diet Comment: regular Dental Care, Regularly: Yes Physical Activity Frequency: Does not Exercise Seatbelt Use: always Sunscreen Use: Yes Assistive Devices: BiPap and Cane Assistive Devices Comment: walking stick Review of Systems Review of Systems: Per HPI. Physical Exam Physical Exam: General: Alert and oriented, no acute distress, HEENT: Normocephalic, moist oral mucosa, Cardio: Regular rate and rhythm, Resp: RLL crackles noted with lower and middle lobe wheezing noted at the very end of expiration, subpar air movement globally GI: Soft and nontender, bowel sounds active Skin: Warm, pink, dry, Results & Data Results & Data Vital Signs (Past 12 Hours) Vital Signs Temp Pulse Pulse Resp BP BP Pulse Ox 01/13/25 20:16 58 L 14 174/82 H 96 01/13/25 18:56 58 L 01/13/25 18:36 67 16 96 01/13/25 18:36 96 01/13/25 18:36 67 16 113/94 96 01/13/25 17:36 36.7 C 66 20 199/70 H 93 O2 Del Method 01/13/25 20:16 Room Air 01/13/25 18:56 01/13/25 18:36 Room Air 01/13/25 18:36 Room Air 01/13/25 18:36 Room Air 01/13/25 17:36 Room Air Supervising Physician Co-Signing Physician Notes Attending addendum: I have physically seen this patient, have supervised the medical residents activities, and agree with the H&P unless as otherwise noted. Assessment and Plan: The patient is a 64-year-old male with past medical history including blindness, CVA/stroke x 12/20/2013, chronic asymptomatic hyponatremia, GERD, solitary kidney, CAD, CKD, diabetes mellitus type 1 on insulin, LUZMA on BiPAP, COPD, hypertension, and hypothyroidism. Most recent hospitalization in October for pneumonia resolved with antibiotics. Patient developed shortness of breath, productive cough, was seen at [facility], and then referred to the emergency department here, where he has been found to have a right lower lobe pneumonia chest x-ray. He is referred for evaluation and treatment to the [facility] for right lower lobe pneumonia. From the ED He has received ceftriaxone 2 g IV, and azithromycin 500 mg p.o. #Right lower lobe pneumonia/COPD exacerbation/LUZMA- Order MRSA swab Continue ceftriaxone 2 g IV daily Azithromycin 500 mg p.o. daily Prednisone 40 mg p.o. daily Continue usual home inhalers Continue BiPAP at bedtime Chronic hyponatremia- Sodium 127, with base 1.6-1 34 Sodium chloride 1 g p.o. twice daily to be continued./Follow laboratory serially Hypertension/CAD- Continue amlodipine, aspirin, atenolol, bumetanide, isosorbide mononitrate Give hydralazine 10 mg IV x 1 for systolic blood pressure greater than 160 Diabetes mellitus- Reducing glargine from 38 to 20 units SQ twice daily while in hospital due to decreased oral intake Check hemoglobin A1c Remaining orders and notations as noted Resident Activity Tracking Resident Involvement: Resident Care Provided Care Provided: Adult Hospital Medicine (1) Community acquired pneumonia Laterality: unspecified laterality Qualified Code(s): J18.9 - Pneumonia, unspecified organism (3) Chronic headache Headache type: unspecified Intractability: intractable Qualified Code(s): R51.9 - Headache, unspecified; G89.29 - Other chronic pain (5) Diabetes mellitus type 1, uncontrolled Glycemic state: with hyperglycemia Qualified Code(s): E10.65 - Type 1 diabetes mellitus with hyperglycemia (6) COPD (chronic obstructive pulmonary disease) COPD type: unspecified COPD Qualified Code(s): J44.9 - Chronic obstructive pulmonary disease, unspecified (7) Hypothyroidism Hypothyroidism type: acquired Qualified Code(s): E03.9 - Hypothyroidism, unspecified
[2025-01-13] MEDS: oxyCODONE/ACETAMINOPHEN 5mg/325mg TAB PO PRN (22:35)
[2025-01-13] MEDS: hydrALAZINE HCL 20 MG/ML VIAL IV STA (22:37)
--- NOTE | 2025-01-13 22:55 | Emergency Department Note ---
History of Present Illness General Chief Complaint: Illness Stated Complaint: POSSIBLE PNEUMONIA Time Seen by Provider: 01/13/25 18:53 History of Present Illness Provider Complaint: + cough Onset (ago): 3 week(s) Duration: + progressively worsening Maximum Pain Intensity: 6 Relieved By: + nothing Exacerbated By: + nothing Able to tolerate fluids by mouth: Yes Associated symptoms: + fever, + chills, + rhinorrhea, + nausea and + vomiting; no stiff neck, no chest pain, no shortness of breath, no abdominal pain, no diarrhea or no rash Home Medications Medication Instructions Recorded Confirmed Type lactobacillus combination no.4 3 3,000 mmu cells PO QAM 08/06/18 01/13/25 History billion cell capsule (Probiotic) aspirin 81 mg tablet,delayed 81 mg PO QAM 06/09/19 01/13/25 History release magnesium 200 mg tablet 400 mg PO QAM 06/09/19 01/13/25 History glucosamine sulfate 500 mg tablet 500 mg PO QAM 07/05/19 01/13/25 History (Glucosamine) levalbuterol HCl 0.63 mg/3 mL 0.63 mg (3 mL) inhalation Q6H PRN 06/08/20 01/13/25 Rx solution for nebulization shortness of breath or wheezing #360 mL ferrous sulfate 325 mg (65 mg 325 mg PO BID 03/25/21 01/13/25 History iron) tablet fexofenadine 180 mg tablet 180 mg PO QAM 08/28/22 01/13/25 History (Manuela Allergy) levothyroxine 175 mcg tablet 175 mcg PO QAM #90 tabs 11/06/23 01/13/25 Rx jkijmdm-iqzcmdywabggu-zoearlqb 250 1 tab PO Q6H PRN Migraine Headache 01/08/24 01/13/25 History mg-250 mg-65 mg tablet (Excedrin Migraine) amlodipine 2.5 mg tablet 2.5 mg PO QAM #90 tabs 04/30/24 01/13/25 Rx tamsulosin 0.4 mg capsule (Flomax) 0.4 mg PO QPM #90 caps 05/01/24 01/13/25 Rx folic acid 1 mg tablet 1 mg PO BID #180 tabs 05/20/24 01/13/25 Rx losartan 100 mg tablet 100 mg PO QAM #90 tabs 05/20/24 01/13/25 Rx isosorbide mononitrate 30 mg 30 mg PO QAM #90 tabs 05/21/24 01/13/25 Rx tablet,extended release 24 hr BiPap Machine #1 ea 05/29/24 11/26/24 Rx atenolol 50 mg tablet (Tenormin) 50 mg PO BID #180 tabs 06/12/24 01/13/25 Rx nortriptyline 25 mg capsule 50 mg (2 x 25 mg) PO HS #180 caps 06/12/24 01/13/25 Rx atorvastatin 80 mg tablet 80 mg PO HS #90 tabs 07/08/24 01/13/25 Rx pantoprazole 40 mg tablet,delayed 40 mg PO BID #180 tabs 07/21/24 01/13/25 Rx release (Protonix) ondansetron HCl 8 mg tablet 8 mg PO TID PRN nausea and 07/23/24 01/13/25 Rx vomiting #30 tabs fluticasone fur. 100 mcg-umeclid 1 inh inhalation QAM 90 days #90 09/08/24 01/13/25 Rx 62.5 mcg-vilant 25 mcg puffs inhalat.powder (Trelegy Ellipta) metoclopramide HCl 10 mg tablet 10 mg PO QID #120 tabs 09/22/24 01/13/25 Rx (Reglan) bumetanide 1 mg tablet 1 mg PO BID #180 tabs 09/29/24 01/13/25 Rx hydrocodone-homatropine 5 mg-1.5 1 tab PO BID PRN cough #60 tabs 10/20/24 01/13/25 Rx mg tablet dutasteride 0.5 mg capsule 0.5 mg PO QAM 11/06/24 01/13/25 History famotidine 20 mg tablet 20 mg PO BID 11/06/24 01/13/25 History famotidine 40 mg tablet 40 mg PO HS 11/06/24 01/13/25 History insulin aspart U-100 100 unit/mL 0 sliding scale dose subcut UD 11/06/24 01/13/25 History (3 mL) subcutaneous pen (Novolog FlexPen U-100 Insulin aspart) insulin degludec 100 unit/mL (3 38 unit subcut BID 11/06/24 01/13/25 History mL) subcutaneous pen (Tresiba FlexTouch U-100 insulin) promethazine 25 mg tablet 25 mg PO Q6H PRN n/v 11/06/24 01/13/25 History montelukast 10 mg tablet 10 mg PO DAILY 11/24/24 01/13/25 History oxycodone-acetaminophen 5 mg-325 1 - 2 tab PO DAILY PRN Pain 30 12/18/24 01/13/25 Rx mg tablet (Percocet) days #60 tabs albuterol sulfate 90 mcg/actuation 2 puff inhalation Q4H PRN 01/12/25 01/13/25 Rx aerosol inhaler Shortness Of Breath #8.5 grams acetaminophen 325 mg tablet 325 mg PO Q6H PRN PAIN/FEVER 01/13/25 01/13/25 History (Tylenol) sennosides 8.6 mg tablet (senna) 8.6 mg PO BID 01/13/25 01/13/25 History sodium chloride 1,000 mg soluble 2,000 mg PO TID 01/13/25 01/13/25 History tablet sucralfate 1 gram tablet 1 g PO ACHS 01/13/25 01/13/25 History Allergies Allergy/AdvReac Type Severity Reaction Status Date / Time lisinopril Allergy Severe " TONGUE Verified 01/13/25 19:36 SWELLS"--ANGIOEDEMA lorazepam AdvReac Intermediate Hallucinati Verified 01/13/25 19:36 ons Past Med/Surg History Problem List (Updated 01/13/25 @ 22:57 by Travis Wall MD) Hyponatremia (Acute) Pneumonia (Acute) Community acquired pneumonia Hyponatremia Mitral regurgitation Chronic headache Acquired blindness GERD (gastroesophageal reflux disease) BPH NOS w ur obs/LUTS Acquired solitary kidney (Acute) Anemia of chronic disease (Acute) CAD (coronary atherosclerotic disease) (Acute) CKD (chronic kidney disease) stage 2, GFR 60-89 ml/min (Acute) Chronic constipation (Acute) Chronic cough (Acute) Depression (Acute) Diabetes mellitus type 1, uncontrolled (Acute) Essential hypertension (Acute) Gastroparesis (Acute) Neurogenic bladder (Acute) PAD (peripheral artery disease) (Acute) Peripheral neuropathy (Acute) Sleep apnea (Acute) Hyperlipidemia (Chronic) Complex sleep apnea syndrome Edema Chronic venous insufficiency Hypertension Exposure to COVID-19 virus (Acute) Multifocal pneumonia (Acute) Chronic hyponatremia (Acute) COPD (chronic obstructive pulmonary disease) (Chronic) Hypothyroidism Medical History Unstable angina Gastric ulcer History of stroke LUZMA (obstructive sleep apnea) bipap GERD (gastroesophageal reflux disease) Aspiration pneumonia Fall Elevated bilirubin Family history of colon cancer DM type 1 (diabetes mellitus, type 1) History of angiography Premature ventricular beats Sepsis hx of History of subarachnoid hemorrhage 2013; memory/cognitive deficits (reports total of 3 strokes but only known event was in 2014 -- remaining strokes were incidental findings) CAD (coronary artery disease), [place] coronary artery PAD (peripheral artery disease) BPH (benign prostatic hyperplasia) Abnormal CT scan of lung Chronic diastolic CHF (congestive heart failure) pt unable to verify Urinary retention Migraine Microcytic anemia Hyperlipidemia Hypertension Ischemic colitis Over 10 years ago (before 2007) Angioedema Asthma uses PRN inh daily Surgical History History of esophagogastroduodenoscopy (EGD) Difficult airway for intubation reports he was told he was a difficult intubation after rectal abscess surgery at [facility]. says he has been intubated since then without issues; denies problems prior to that procedure, as well. History of vasectomy History of tonsillectomy and adenoidectomy History of hand surgery Hand Incision Tendon Sheath of a Finger History of rectal abscess I&D History of transurethral resection of prostate History of appendectomy History of eye surgery multiple History of ventral hernia repair H/O colonoscopy last 2019 Family History Mother Hypertension Grandfather (Paternal) Colon cancer Prostate cancer Brother Brain cancer Diabetes Bone cancer Kidney disease Lung cancer Son Diabetes Lung cancer Father Hemorrhagic stroke Hypertension Other Breast cancer No family history of adverse response to anesthesia Testicular cancer Denies family history of Ovarian cancer Myocardial infarction Social History Smoking Status: Former smoker Tobacco Type: Cigarettes Age Started Using Tobacco: 16; Age Quit Using Tobacco: 49; packs per day: 1.5; Second Hand Exposure: No; Do You Dip or Chew Tobacco: No; Hx Alcohol Use: Yes Alcohol type: hard liquor Hx Substance Use: No Preferred Language: Mohawk Communication Ability: Effective Communication Ability Comment: Pt. is legally blind Visual Impairment: No Limitations Hearing Ability: Hard of Hearing Operations Assistant Required: No Beliefs That Will Affect Care: None marital status: Current Living Situation: Spouse current occupational status: disabled How many Children do You have: 1 Feels Safe at Home: Yes Childhood Exposure to Second-Hand Smoke: Yes Diet: regular Diet Comment: regular Dental Care, Regularly: Yes Physical Activity Frequency: Does not Exercise Seatbelt Use: always Sunscreen Use: Yes Assistive Devices: BiPap and Cane Physical Exam 2 Vital Signs: Vital Signs - 24 hr 01/13/25 17:36 01/13/25 18:36 01/13/25 18:36 Temperature 36.7 C Temperature Source Temporal Artery Sc an Pulse Rate 66 Pulse Rate [Right Finger] 67 Pulse Rhythm Regular Pulse Strength Normal Respiratory Rate 20 16 Respiratory Effort / Characteristics Non-Labored Sponta neous Non-Labored Sponta neous Respiratory Depth Normal Blood Pressure 199/70 H Blood Pressure [Ri ght Arm] 113/94 Blood Pressure Yanna n 113 Blood Pressure Yanna n [Right Arm] 100 Blood Pressure Pos ition Sitting Blood Pressure Pos ition [Right Arm] Lying Pulse Oximetry 93 96 96 Oxygen Delivery Me thod Room Air Room Air Room Air Sepsis Recent Feve r Within 48 Hours No Sepsis New/Unexpla ined Change in Men diana Status N/A Sepsis Action Take n by Nursing No Action Required 01/13/25 18:36 01/13/25 18:56 01/13/25 20:16 Temperature Temperature Source Pulse Rate 67 58 L Pulse Rate [Right Finger] 58 L Pulse Rhythm Pulse Strength Respiratory Rate 16 14 Respiratory Effort / Characteristics Respiratory Depth Blood Pressure Blood Pressure [Ri ght Arm] 174/82 H Blood Pressure Yanna n Blood Pressure Yanna n [Right Arm] 112 Blood Pressure Pos ition Blood Pressure Pos ition [Right Arm] Sitting Pulse Oximetry 96 96 Oxygen Delivery Me thod Room Air Room Air Sepsis Recent Feve r Within 48 Hours Sepsis New/Unexpla ined Change in Men diana Status Sepsis Action Take n by Nursing 01/13/25 22:00 01/13/25 22:30 Temperature Temperature Source Pulse Rate 63 Pulse Rate [Right Finger] 66 Pulse Rhythm Pulse Strength Respiratory Rate 16 Respiratory Effort / Characteristics Non-Labored Sponta neous Respiratory Depth Blood Pressure Blood Pressure [Ri ght Arm] 192/84 H Blood Pressure Yanna n Blood Pressure Yanna n [Right Arm] 120 Blood Pressure Pos ition Blood Pressure Pos ition [Right Arm] Pulse Oximetry 95 Oxygen Delivery Me thod Room Air Sepsis Recent Feve r Within 48 Hours Sepsis New/Unexpla ined Change in Men diana Status Sepsis Action Take n by Nursing Physical Exam: Physical Exam HENT: Exam performed. - Head: Normocephalic and atraumatic. EYES: Blind.. NECK: Normal range of motion. Neck supple. No JVD present. CV: Normal rate, regular rhythm, normal heart sounds and intact distal pulses. There is no peripheral edema. Palpable radial pulses bue. PULM/CHEST: Rhonchi bilaterally. ABD: The abdomen is soft. There is no tenderness. NEURO: Motor and sensation grossly intact. Course Course 1852: The patient was evaluated in room A12. A complete history and physical exam was performed Cardiac monitoring: An order was placed for continuous cardiac monitoring. The monitor shows a rate of 60 with sinus rhythm interpreted by me 2034: Vital signs stable. Labs are unremarkable with exception of a sodium of 127. BioFire negative. X-ray shows right lower lobe pneumonia. No focal neurological deficits no seizures. No need for hypertonic saline. Gentle hydration started in the emergency department. Rocephin and azithromycin ordered for the patient. [facility]. Administered Medications Sodium Chloride (Nss) 1,000 mls @ 125 mls/hr IV .Q8H SILVINA Stop: 01/14/25 20:44 Last Admin: 01/13/25 20:54 Dose: 125 mls/hr Documented By: NANO Oxycodone/Acetaminophen (Oxycodone/Acetaminophen 5mg/325mg Tab) 2 tab PO Q8H PRN PRN Reason: Pain Stop: 01/27/25 21:57 Last Admin: 01/13/25 22:35 Dose: 2 tab Documented By: NANO Discontinued Medications Acetaminophen (Acetaminophen 500 Mg Tab) 1,000 mg PO NOW STA Stop: 01/13/25 20:19 Last Admin: 01/13/25 20:24 Dose: 1,000 mg Documented By: KAPIL Azithromycin (Azithromycin 250 Mg Tab) 500 mg PO NOW ONE Stop: 01/13/25 20:35 Last Admin: 01/13/25 20:48 Dose: 500 mg Documented By: NANO Hydralazine HCl (Hydralazine Hcl 20 Mg/Ml Vial) 10 mg IV NOW STA Stop: 01/13/25 22:11 Last Admin: 01/13/25 22:37 Dose: 10 mg Documented By: NANO Ceftriaxone Sodium (Rocephin) 2,000 mg in 50 mls @ 100 mls/hr IV NOW STA Stop: 01/13/25 21:03 Last Infusion: 01/13/25 22:41 Dose: Infused Documented By: Admin: 01/13/25 20:54 Dose: 100 mls/hr Documented By: NANO Medical Decision Making Laboratory Data Attestation: I reviewed the patient's lab results. 01/13/25 17:52 01/13/25 17:52 Lab Results 01/13/25 Range/Units 17:52 WBC 7.42 (4.8-10.8) K/ul RBC 3.64 L (4.70-6.10) M/uL Hgb 11.3 L (14.0-18.0) g/dl Hct 33.0 L (42.0-52.0) % MCV 90.7 (80.0-100.0) fL MCH 31.0 (25.0-34.0) pg MCHC 34.2 (32.0-36.0) g/dL RDW Std Deviation 42.5 (36.4-46.3) fL RDW Coeff of Analisa 12.9 (11.5-14.5) % Plt Count 425 H (130-400) K/uL MPV 9.3 L (9.4-12.4) fL Immature Gran % (Auto) 0.3 % Neut % (Auto) 67.1 % Lymph % (Auto) 24.7 % Andrew % (Auto) 6.6 % Eos % (Auto) 0.8 % Baso % (Auto) 0.5 % Neut # (Auto) 4.98 (1.40-6.50) K/uL Lymph # (Auto) 1.83 (1.20-3.40) K/uL Andrew # (Auto) 0.49 (0.11-0.59) K/uL Eos # (Auto) 0.06 (0.00-0.50) K/uL Baso # (Auto) 0.04 (0.00-0.20) K/uL Immature Gran # (Auto) 0.02 (0.01-0.20) K/uL PT 10.3 (9.0-12.0) Seconds INR 0.9 (0.9-1.1) APTT 28 (21-31) Seconds PTT Ratio 1.0 D-Dimer 420 (0-500) ug/L FEU Sodium 127 L (136-145) mmol/L Potassium 4.5 (3.5-5.1) mmol/L Chloride 94 L (98-107) mmol/L Carbon Dioxide 28 (21-32) mmol/L Anion Gap 5 (3-11) BUN 16 (6-23) mg/dl Creatinine 1.03 (0.6-1.4) mg/dl Est Cr Clr Drug Dosing Not Reportable eGFR 80.61 BUN/Creatinine Ratio 15.5 (10-20) Glucose 128 H (70-99(Fasting)) mg/dl Calcium 8.9 (8.6-10.3) mg/dl Total Bilirubin 0.4 (0.2-1.0) mg/dl AST 18 (13-39) U/L ALT 16 (7-52) U/L Alkaline Phosphatase 135 H (34-104) U/L Troponin I High Sens < 2.3 (0-20) pg/ml Total Protein 7.6 (6.0-8.3) gm/dl Albumin 4.4 (3.4-5.0) gm/dl Globulin 3.2 (2.5-4.0) gm/dl Albumin/Globulin Ratio 1.4 (0.9-2) Adenovirus (PCR) Not Detected (NotDetected) B. pertussis DNA (PCR) Not Detected (NotDetected) B.parapertussis DNA PCR Not Detected (NotDetected) C. pneumoniae DNA (PCR) Not Detected (NotDetected) Coronavirus OC43 (PCR) Not Detected (NotDetected) Coronavirus HKU1 (PCR) Not Detected (NotDetected) Coronavirus 229E (PCR) Not Detected (NotDetected) SARS-CoV-2 (PCR) Not Detected (NotDetected) Coronavirus NL63 (PCR) Not Detected (NotDetected) Human Metapneumovir PCR Not Detected (NotDetected) Influenza Type A (PCR) Not Detected (NotDetected) Influenza Type B (PCR) Not Detected (NotDetected) M. pneumoniae (PCR) Not Detected (NotDetected) Parainfluenza 1 (PCR) Not Detected (NotDetected) Parainfluenza 2 (PCR) Not Detected (NotDetected) Parainfluenza 3 (PCR) Not Detected (NotDetected) Parainfluenza 4 (PCR) Not Detected (NotDetected) RSV (PCR) Not Detected (NotDetected) Entero/Rhino (PCR) Not Detected (NotDetected) Imaging Data Attestation: I personally reviewed and interpreted this imaging study as follows: My Impression: Chest x-ray: Right lower lobe pneumonia Radiologist's Impression: Chest X-Ray 01/13/25 17:40 Clinical History: Pneumonia Technique: 2 frontal views of the chest were obtained Comparison is made to the prior examination dated 11/06/2024 Findings: There is new right lung base infiltrate, concerning for pneumonia. The heart size is at the upper limit of normal. No pleural effusion or pneumothorax is seen. There is no definite pulmonary nodule. No fracture is noted. No foreign body is seen Impression: Right lower lobe pneumonia ACT 112: Positive. There are findings on this exam that require communication between the performing entity and the patient following Patient Test Result Information Act ([place] ACT 112) guidelines. Electronically signed by Paresh Prasad 01-13-2025 7:53 PM ECG Data Attestation: I personally reviewed and interpreted this ECG as follows: Rate (beats per minute): 64 Rhythm: normal sinus Findings: + 1st degree AV block; no ST depression, no ST elevation or no prolonged QT [facility] Narrative 1853: The patient was evaluated in room A12. A complete history and physical exam was performed Cardiac monitoring: An order was placed for continuous cardiac monitoring. The monitor shows a rate of 60 with sinus rhythm interpreted by nd 2035: Vital signs stable. Labs are unremarkable with exception of a sodium of 127. BioFire negative. X-ray shows right lower lobe pneumonia. No focal neurological deficits no seizures. No need for hypertonic saline. Gentle hydration started in the emergency department. Rocephin and azithromycin ordered for the patient. [facility] Impression & Plan Pneumonia, Hyponatremia Discharge Plan Visit Data Chief Complaint: Illness Stated Complaint: POSSIBLE PNEUMONIA ED Provider: Travis Wall Discharge Problem: Pneumonia, Hyponatremia Patient Disposition: Admitted As Inpatient Forms Stand Alone Forms: [facility] Prescriptions Prescriptions: No Action levothyroxine 175 mcg tablet 175 mcg PO QAM Qty: 90 3RF amlodipine 2.5 mg tablet 2.5 mg PO QAM Qty: 90 3RF folic acid 1 mg tablet 1 mg PO BID Qty: 180 3RF losartan 100 mg tablet 100 mg PO QAM Qty: 90 3RF isosorbide mononitrate 30 mg tablet extended release 24 hr 30 mg PO QAM Qty: 90 3RF Rx Instructions: take 1 tablet by mouth every morning atenolol [Tenormin] 50 mg tablet 50 mg PO BID Qty: 180 3RF nortriptyline 25 mg capsule 50 mg PO HS Qty: 180 3RF Rx Instructions: take 2 capsules by mouth at bedtime atorvastatin 80 mg tablet 80 mg PO HS Qty: 90 3RF pantoprazole [Protonix] 40 mg tablet,delayed release (DR/EC) 40 mg PO BID Qty: 180 3RF ondansetron HCl 8 mg tablet 8 mg PO TID PRN (Reason: nausea and vomiting) Qty: 30 1RF metoclopramide HCl [Reglan] 10 mg tablet 10 mg PO QID Qty: 120 5RF bumetanide 1 mg tablet 1 mg PO BID Qty: 180 3RF hydrocodone-homatropine 5-1.5 mg tablet 1 tab PO BID PRN (Reason: cough) Qty: 60 0RF oxycodone-acetaminophen [Percocet] 5-325 mg tablet 1 - 2 tab PO DAILY PRN (Reason: Pain) 30 Days Qty: 60 0RF albuterol sulfate 90 mcg/actuation HFA aerosol inhaler 2 puff inhalation Q4H PRN (Reason: Shortness Of Breath) Qty: 8.5 3RF levalbuterol HCl 0.63 mg/3 mL solution for nebulization 0.63 mg inhalation Q6H PRN (Reason: shortness of breath or wheezing) Qty: 360 5RF (DME) BiPap Machine Misc .Route Qty: 1 0RF Rx Instructions: BiPAP 15/8, heated humidification, compliance download capabilities. Current machine greater than 5 years old and unable to provide compliance data: [facility] [employer] tamsulosin [Flomax] 0.4 mg capsule 0.4 mg PO QPM Qty: 90 3RF aspirin 81 mg tablet,delayed release (DR/EC) 81 mg PO QAM ferrous sulfate 325 mg (65 mg iron) tablet 325 mg PO BID Excedrin Migraine 250-250-65 mg tablet 1 tab PO Q6H PRN (Reason: Migraine Headache) Trelegy Ellipta 100-62.5-25 mcg blister with device 1 inh INHALATION QAM 90 Days Qty: 90 3RF montelukast 10 mg tablet 10 mg PO DAILY glucosamine sulfate [Glucosamine] 500 mg Tablet 500 mg PO QAM Probiotic 3 billion cell Capsule 3,000 mmu cells PO QAM magnesium 200 mg tablet 400 mg PO QAM fexofenadine [Manuela Allergy] 180 mg Tablet 180 mg PO QAM famotidine 20 mg Tablet 20 mg PO BID Rx Instructions: TAKES WITH BREAKFAST AND LUNCH insulin aspart U-100 [Novolog FlexPen U-100 Insulin] 100 unit/mL (3 mL) insulin pen 0 sliding scale dose SUBCUT UD Rx Instructions: 1-4 CARBS IS 1 UNIT subcut daily; SLIDING SCALE; FOR EVERY 20 CARBS, ADD ANOTHER 1 UNIT OF INSULIN 2 EXTRA 2 UNITS FOR 150-170 CARBS AND IF OVER 150, ADD 2 UNITS FOR EVERY 20 POINTS OVER FOR HIS BLOOD SUGAR insulin degludec [Tresiba FlexTouch U-100] 100 unit/mL (3 mL) insulin pen 38 unit subcut BID famotidine 40 mg tablet 40 mg PO HS promethazine 25 mg tablet 25 mg PO Q6H PRN (Reason: n/v) Rx Instructions: take 1 tablet by mouth every 6 hours if needed for nausea and vomiting dutasteride 0.5 mg capsule 0.5 mg PO QAM sennosides [senna] 8.6 mg Tablet 8.6 mg PO BID acetaminophen [Tylenol] 325 mg Tablet 325 mg PO Q6H PRN (Reason: PAIN/FEVER) sodium chloride 1,000 mg Tablet,Soluble 2,000 mg PO TID sucralfate 1 gram tablet 1 g PO ACHS Rx Instructions: PLEASE SEE ATTACHED FOR DETAILED DIRECTIONS Referrals Referrals: Josh Squires III, CRNP [Primary Care Provider] - Discharge Problem: Pneumonia Qualifiers: Pneumonia type: due to unspecified organism Laterality: right Lung location: l ower lobe of lung Qualified Code(s): J18.9 - Pneumonia, unspecified organism
[2025-01-13] MEDS: predniSONE 20 MG TAB PO STA (22:59)
[2025-01-14] MEDS ORDERED: GLUCAGON FOR INJ 1 MG VIAL SQ PRN (00:21)
[2025-01-14] MEDS ORDERED: ALBUTEROL HFA 8 GM INHALER INH PRN (00:21)
[2025-01-14] MEDS ORDERED: GLUCOSE 10 TAB/TUBE PO PRN (00:21)
[2025-01-14] MEDS ORDERED: DEXTROSE 50% 50 ML SYRINGE IV PRN (00:21)
[2025-01-14] MEDS ORDERED: LEVALBUTEROL HCL 0.63 MG/3 ML NEB INH PRN (00:21)
[2025-01-14] MEDS ORDERED: GLUCOSE 40% GEL 15 GM TUBE PO PRN (00:21)
[2025-01-14] MEDS ORDERED: CARBOHYDRATES FOR HYPOGLYCEMIA PO PRN (00:21)
[2025-01-14] MEDS: LANTUS PER UNIT CHARGE SQ SCH ×2 (00:57→20:36)
[2025-01-14] MEDS: FOLIC ACID 1 MG TAB PO SCH (00:58)
[2025-01-14] MEDS: PANTOprazole 40 MG TAB PO SCH (00:58)
[2025-01-14] MEDS: BUMETANIDE 1 MG TAB PO SCH (00:58)
[2025-01-14] MEDS: FERROUS SULFATE 325 MG TAB PO SCH (00:58)
[2025-01-14] MEDS: ATENOLOL 50 MG TABLET PO SCH (01:00)
[2025-01-14] MEDS: hydrALAZINE HCL 20 MG/ML VIAL IV STA (01:24)
[2025-01-14] MEDS: METOCLOPRAMIDE HCL 10 MG TABLET PO SCH (01:24)
[2025-01-14] MEDS: SENNA 8.6 MG TAB PO SCH (01:25)
[2025-01-14] MEDS: FAMOTIDINE 40 MG TABLET PO SCH (01:59)
[2025-01-14] MEDS: LEVOTHYROXINE SODIUM 175 MCG TABLET PO SCH (04:57)
[2025-01-14] MEDS: FAMOTIDINE 20 MG TAB PO SCH (06:06)
[2025-01-14 07:25] LABS: Hematocrit (blood only) 37.5 % (42.0-52.0); Hemoglobin 12.5 g/dl (14.0-18.0); Mean Corpuscular Hemoglobin 30.3 pg (25.0-34.0); Mean Corpuscular Hgb Conc 33.3 g/dL (32.0-36.0); Mean Corpuscular Volume 90.8 fL (80.0-100.0); Mean Platelet Volume 9.9 fL (9.4-12.4); Platelet Count 534 K/uL (130-400); RDW Coefficient of Variation 13.2 % (11.5-14.5); RDW Standard Deviation 43.3 fL (36.4-46.3); Red Blood Count 4.13 M/uL (4.70-6.10); White Blood Count 13.19 K/ul (4.8-10.8)
[2025-01-14 07:37] LABS: Estimated Average Glucose 171 mg/dl; Hemoglobin A1C 7.6 % (4.5-5.6)
[2025-01-14 07:39] LABS: Albumin Globulin Ratio 1.3 (0.9-2); Albumin Level 4.6 gm/dl (3.4-5.0); BUN Creatinine Ratio 16.5 (10-20); Bilirubin,Total 0.3 mg/dl (0.2-1.0); Calcium 9.5 mg/dl (8.6-10.3); Creatinine Clr Calc Pharmacy 93.8 ml/min; Globulin 3.6 gm/dl (2.5-4.0); Potassium 4.8 mmol/L (3.5-5.1); Total Protein 8.2 gm/dl (6.0-8.3)
[2025-01-14 07:53] LABS: Basophils # (auto) 0.02 K/uL (0.00-0.20); Basophils % (auto) 0.2 %; Immature Granulocytes # (auto) 0.09 K/uL (0.01-0.20); Immature Granulocytes % (auto) 0.7 %; Lymphocytes # (auto) 0.79 K/uL (1.20-3.40); Monocytes % (auto) 0.8 %; Neutrophils # (auto) 12.19 K/uL (1.40-6.50); Neutrophils % (auto) 92.3 %
[2025-01-14] MEDS: MONTELUKAST SODIUM 10 MG TABLET PO SCH (08:06)
[2025-01-14] MEDS: SUCRALFATE 1 GM TAB PO SCH (08:06)
[2025-01-14] MEDS: MAGNESIUM OXIDE 400 MG TAB PO SCH (08:06)
[2025-01-14] MEDS: SODIUM CHLORIDE 1 GM TABLET PO SCH (08:06)
[2025-01-14] MEDS: predniSONE 20 MG TAB PO SCH (08:07)
[2025-01-14] MEDS: FEXOFENADINE HCL 180 MG TAB PO SCH (08:07)
[2025-01-14] MEDS: AZITHROMYCIN 250 MG TAB PO SCH (08:07)
[2025-01-14] MEDS: ASPIRIN 81 MG ECTAB PO SCH (08:07)
[2025-01-14] MEDS: ISOSORBIDE MONO EXTENDED REL 30 MG TABCR PO SCH (08:08)
[2025-01-14] MEDS: amLODIPine BESYLATE 5 MG TAB PO SCH (08:08)
[2025-01-14] MEDS: LOSARTAN POTASSIUM 50 MG TAB PO SCH (08:08)
[2025-01-14] MEDS: FLUTICASONE FUROATE 100MCG 14 PUFFS/INHALER INH SCH (08:09)
[2025-01-14] MEDS: UMECLIDINIUM/VILANTEROL 62.5/25MCG 7 PUFFS/INHALER INH SCH (08:09)
[2025-01-14] MEDS: ENOXAPARIN INJ 40 MG/0.4 ML SYR SQ SCH (08:10)
[2025-01-14] MEDS ORDERED: METOCLOPRAMIDE HCL 10 MG TABLET PO SCH (09:00)
[2025-01-14] MEDS: INSULIN ASPART PER UNIT CHARGE SC SCH (09:09)
[2025-01-14] MEDS: hydrALAZINE HCL 20 MG/ML VIAL IV PRN (09:42)
--- NOTE | 2025-01-14 09:53 | Electrocardiogram Report ---
Test Reason : Blood Pressure : */* mmHG Vent. Rate : 64 BPM Atrial Rate : 64 BPM P-R Int : 216 ms QRS Dur : 80 ms QT Int : 410 ms P-R-T Axes : 63 31 48 degrees QTcB Int : 422 ms Sinus rhythm with 1st degree A-V block Otherwise normal ECG When compared with ECG of 06-Nov-2024 07:54, No significant change was found Confirmed by Carlo Hawley ([id number]) on 01/14/2025 9:53:23 AM Referred By: Confirmed By: Carlo Hawley
--- NOTE | 2025-01-14 12:34 | Hospitalist Progress Note ---
Date of Service January 14, 2025 Assessment & Plan (1) Community acquired pneumonia: (2) Hyponatremia: (3) Diabetes mellitus type 1, uncontrolled: (4) COPD (chronic obstructive pulmonary disease): Plan Pt is a 64 yo male with a past med hx of blindness, CVA stroke x3, chronic asymptomatic hyponatremia, GERD, CAD, CKD, DMT1, LUZMA on bipap, COPD, HTN, and hypothyroidism who presents to the hospital on 01/13 for URI symptoms the last few weeks with SOB on exertion, admitted for RLL pneumonia. #Pneumonia, RLL/COPD exacerbation- CXR on admission showed RLL opacity, WBC count 7 and now increased due to steroids. With wheezing on admission now improving after steroids. Not on supplmental O2. BioFire negative -continue ceftriaxone and azithro -continue prednisone but decrease to 30mg po daily for in AM - continue home inhalers #Hyponatremia - Na on admission 127, his baseline appears to be 125-130. Some element of pseudohyponatremia here as well - continue home sodium pills -follow BMP #HTN -BPs quite elevated. COuld be due to stress in hospital as well as from prednisone. Has a h/o CVA x 3 -continue home bumex, amlodipine, isosorbide, atenolol, losartan -add prn IV hydralazine and give a dose today #DMT1- at home takes long acting 38 units BID and Novolog. Has had DM1 for 62 years. HgbA1C here well controlled at 7.6%. With significant hyperglycemia here now on steroids. No DKA - increased Lantus to 35 units bid -tighten down Novolog goal range, CF, CR -gave 10 units regular insulin IV x 1 in mid afternoon -wean off steroids as able-decrease to 20mg for tomorrow #LUZMA - continue bipap HS #Hypothyroidism-last TSH elevated at 11 in 04/2024 - continue home levothyroxine -check TSH in AM #Chronic headache - takes 1-2 5mg percocet at home daily, will continue this - Excedrin as needed DVT Proph- lovenox SQ Dispo-continued stay Admission and Anticipated Discharge Date Admission Date: January 13, 2025 Subjective Pt worried about his elevated BPs today. Says his glucose is frequently in the 300s at home and that's not concerning to him. Feels his cough and SOB are improving. He had a headache later in the day for which he requested his usual percocet. Physical Exam Constitutional: WD/WN, vitals as above Respiratory: normal respiratory effort and + cough Auscultation: + crackles (right lower lung field); no rhonchi and no wheezes Cardiovascular: RRR, no murmur, no edema Gastrointestinal (Abdomen): normal bowel sounds, soft, nontender, no hepatosplenomegaly Psychiatric: A+Ox3, euthymic affect Results & Data Results & Data Vital Signs (Past 12 Hours) Vital Signs Temp Pulse Pulse Resp BP Pulse Ox O2 Del Method 01/14/25 11:37 166/67 H 01/14/25 09:31 197/66 H 01/14/25 08:31 Room Air 01/14/25 07:51 36.5 C 77 20 206/72 H 96 Room Air 01/14/25 02:15 72 26 H 94 01/14/25 01:56 64 171/69 H 01/14/25 01:31 Room Air FiO2 01/14/25 11:37 01/14/25 09:31 01/14/25 08:31 01/14/25 07:51 01/14/25 02:15 21 01/14/25 01:56 01/14/25 01:31 Laboratory Results CBC, CMP, HgbA1C reviewed PG Care Time/CCT Total # of Minutes Spent Total Time Spent with Patient: Total time spent is greater than 50% in coordination of care (as documented) at patient's floor/unit and/or counseling patient: Coding Level of Care Code 66744 SUB INP/OBS CARE 3/50MIN Diagnoses Community acquired pneumonia, unspecified laterality J18.9 Laterality: unspecified laterality Hyponatremia E87.1 Uncontrolled type 1 diabetes mellitus with hyperglycemia E10.65 Glycemic state: with hyperglycemia Chronic bronchitis, unspecified chronic bronchitis type J44.9 COPD type: unspecified COPD (1) Community acquired pneumonia Laterality: unspecified laterality Qualified Code(s): J18.9 - Pneumonia, unspecified organism (3) Diabetes mellitus type 1, uncontrolled Glycemic state: with hyperglycemia Qualified Code(s): E10.65 - Type 1 diabetes mellitus with hyperglycemia (4) COPD (chronic obstructive pulmonary disease) COPD type: unspecified COPD Qualified Code(s): J44.9 - Chronic obstructive pulmonary disease, unspecified
[2025-01-14] MEDS: LANTUS PER UNIT CHARGE SQ ONE (12:53)
[2025-01-14] MEDS: INSULIN HUMAN REGULAR PER UNIT 10 UNITS in SYRINGE 9.9 ML IV STA (16:04)
--- NOTE | 2025-01-14 19:23 | Billing Data ---
Date of Service January 14, 2025 Coding Level of Care Code 04536 INT INP/OBS CARE
[2025-01-14] MEDS: ACETAMINOPHEN 325 MG TAB PO PRN (19:39)
[2025-01-14] MEDS: TAMSULOSIN HCL 0.4 MG CAP PO SCH (20:41)
[2025-01-14] MEDS: NORTRIPTYLINE HCL 25 MG CAP PO SCH (20:42)
[2025-01-14] MEDS: ATORVASTATIN 40 MG TAB PO SCH (20:43)
[2025-01-14] MEDS: cefTRIAXone SODIUM 2,000 MG/50 ML BAG IV SCH (20:44)
[2025-01-14] MEDS: PROMETHAZINE HCL 25 MG TAB PO PRN (22:35)
[2025-01-14] MEDS: INSULIN ASPART PER UNIT CHARGE SC STA (23:01)
[2025-01-14] MEDS: CALCIUM CARBONATE 500 MG CHEWABLE TAB PO PRN (23:01)
[2025-01-14 23:10] LABS: Base Excess VBG -1.9 mEq/L; HCO3 VBG 22 mmol/L; Oxygen Saturation VBG 93.4 %; PCO2 VBG 35 mmHg (38-50); PO2 VBG 61 mmHg; pH VBG 7.41 (7.36-7.41)
[2025-01-14 23:51] LABS: Albumin Globulin Ratio 1.3 (0.9-2); Albumin Level 4.3 gm/dl (3.4-5.0); BUN Creatinine Ratio 20.6 (10-20); Bilirubin,Total 0.4 mg/dl (0.2-1.0); Calcium 9.5 mg/dl (8.6-10.3); Creatinine Clr Calc Pharmacy 67.8 ml/min; Globulin 3.3 gm/dl (2.5-4.0); Potassium 4.2 mmol/L (3.5-5.1); Total Protein 7.6 gm/dl (6.0-8.3)
[2025-01-15 06:03] LABS: Basophils # (auto) 0.05 K/uL (0.00-0.20); Basophils % (auto) 0.5 %; Eosinophils # (auto) 0.04 K/uL (0.00-0.50); Eosinophils % (auto) 0.4 %; Hematocrit (blood only) 33.5 % (42.0-52.0); Hemoglobin 11.2 g/dl (14.0-18.0); Immature Granulocytes # (auto) 0.04 K/uL (0.01-0.20); Immature Granulocytes % (auto) 0.4 %; Lymphocytes # (auto) 0.78 K/uL (1.20-3.40); Mean Corpuscular Hgb Conc 33.4 g/dL (32.0-36.0); Mean Corpuscular Volume 92.8 fL (80.0-100.0); Mean Platelet Volume 9.6 fL (9.4-12.4); Monocytes # (auto) 0.94 K/uL (0.11-0.59); Monocytes % (auto) 9.6 %; Neutrophils # (auto) 7.95 K/uL (1.40-6.50); Neutrophils % (auto) 81.1 %; Platelet Count 396 K/uL (130-400); RDW Coefficient of Variation 13.4 % (11.5-14.5); RDW Standard Deviation 45.2 fL (36.4-46.3); Red Blood Count 3.61 M/uL (4.70-6.10)
[2025-01-15 06:25] LABS: BUN Creatinine Ratio 21.4 (10-20); Calcium 9.4 mg/dl (8.6-10.3); Creatinine Clr Calc Pharmacy 65.2 ml/min; Magnesium 2.4 mg/dl (1.7-2.4); Phosphorus 3.9 mg/dl (2.5-4.9); Potassium 3.8 mmol/L (3.5-5.1)
[2025-01-15 06:40] LABS: Thyroid Stimulating Hormone 2.595 uIu/ml (0.300-4.500)
[2025-01-15 07:25] VITALS: PULSE 69; RESP 16; TEMP 97.5; O2SAT 95
[2025-01-15] MEDS: predniSONE 10 MG TABLET PO SCH (07:46)
--- NOTE | 2025-01-15 09:16 | Discharge Summary ---
Discharge Summary Date of Service January 15, 2025 Principal Dx & Hospital Course #1 = Principal Diagnosis (1) Community acquired pneumonia: (2) Hyponatremia: (3) Diabetes mellitus type 1, uncontrolled: (4) COPD (chronic obstructive pulmonary disease): Plan Pt is a 64 yo male with a past med hx of blindness, CVA stroke x3, intracranial hemorrhage, chronic asymptomatic hyponatremia, GERD, CAD, CKD, DMT1, LUZMA on bipap, COPD, HTN, and hypothyroidism who presents to the hospital on 01/13 for URI symptoms the last few weeks with SOB on exertion, admitted for RLL pneumonia. #Pneumonia, RLL/COPD exacerbation- CXR on admission showed RLL opacity, WBC count 7 on admission and then went up due to steroids. Remains afebrile. With wheezing on admission now improving after steroids. Not on supplemental O2. BioFire negative. Improving, still with crackles in the right lower lung bhat -Received ceftriaxone x 3 doses and azithro 500 mg p.o. once daily x 3 doses- discharge to home on 4 more days of cefdinir 300 mg p.o. twice daily -Check chest x-ray in 4 to 6 weeks to ensure resolution of pneumonia -continue prednisone 30mg po daily x 1 more day then decrease by 10 mg daily until gone - continue home inhalers -His pulse ox stated 96% with ambulation with the nurse on the day of discharge #Hyponatremia - Na on admission 127 and up to 131 on day of discharge, his baseline appears to be 125-130. Some element of pseudohyponatremia here as well - continue home sodium pills -follow BMP as an outpatient #HTN -BPs quite elevated due to stress in hospital as well as from prednisone. Has a h/o CVA x 3 with intracranial hemorrhage. Blood pressures improved with 2 doses of IV hydralazine and reducing dose of prednisone. -continue home bumex, amlodipine, isosorbide, atenolol, losartan at home doses on discharge -Recommend buying a home blood pressure cuff and if blood pressures are persistently greater than 140/90, recommend follow-up with PCP for adjustment in home medication regimen #DMT1- at home takes long acting 38 units BID and Novolog. Has had DM1 for 62 years. HgbA1C here well controlled at 7.6%. With significant hyperglycemia here now on steroids. No DKA. Improved with increasing doses of insulin. -Resume home Tresiba and NovoLog sliding scale on discharge-he is well accustomed to managing his blood sugars -wean off steroids quickly over the next 3 days #LUZMA - continue bipap HS #Hypothyroidism-last TSH elevated at 11 in 04/2024 but now normal here at 2.59 - continue home levothyroxine #Chronic headache-improved as blood pressure came down - takes 1-2 5mg percocet at home daily, will continue this - Excedrin as needed DVT Proph- lovenox SQ Dispo-discharge to home Notes For Next Care Provider Follow blood pressure closely as an outpatient Medication Changes From Visit Added cefdinir 300 mg p.o. twice daily x 4 more days Added prednisone 30 mg daily x 1 day then decrease by 10 mg daily until gone Admission HPI Per Admitting Provider Pt is a 64 yo male with a past med hx of blindness, CVA stroke x3 last one in 2013, chronic asymptomatic hyponatremia, GERD, solitary kidney, CAD, CKD, DMT1, LUZMA on bipap, COPD, HTN, and hypothyroidism who presents to the hospital on 01/13 for URI symptoms the last few weeks with SOB on exertion, admitted for RLL pneumonia. Pt seen at bedside with and daughter present. He states symptoms started with typical cold symptoms; cough, congestion about 3 weeks ago. Max temp at home per was 99.5 F. She also states his cough has been productive with yellowish nonbloody sputum. No chest pain. No SOB at rest but with walking around he does get very SOB. No abdominal pain or diarrhea but did note his stools this morning were soft and he did go 3 times this morning. He does not use oxygen at home baseline for his COPD. He does use bipap daily, usually HS but in general makes sure to use it at least once daily for some bit of time. He does note a headache but it has been ongoing since his last stroke in 2013 and he takes percocet at home for this. Discharge Exam Constitutional WD/WN, vitals as above Respiratory normal respiratory effort and + cough Auscultation: + crackles (right lower lung field); no rhonchi and no wheezes Cardiovascular RRR, no murmur, no edema Gastrointestinal (Abdomen) normal bowel sounds, soft, nontender, no hepatosplenomegaly Psychiatric A+Ox3, euthymic affect Discharge Plan Discharge Items Patient Disposition: Home - Self-Care Reason For Visit: PNEUMONIA IN COPD PT Discharge Diagnosis: Pneumonia COPD exacerbation Hyperglycemia Activity: Resume your previous activity Non-emergency contact: Primary Care Provider Call non-emergency contact if: you have any medication questions and your symptoms worsen Follow-up/Referrals: Josh Squires III, CRNP [Primary Care Provider] - 01/22/25 11:00 am () Diet: Carb Count or DM1 and Heart Healthy Addtl Attending Provider Instructions: Please finish out 4 more days of the oral antibiotic called cefdinir, twice daily. You already completed 3 days of high-dose azithromycin as your second antibiotic. Please complete the prednisone taper, starting with 30 mg daily and going down by 10 mg each day until gone. This will make your blood sugars higher than usual and you can adjust for this with your NovoLog sliding scale. You will need a repeat chest x-ray in 4 to 6 weeks to ensure resolution of your pneumonia. Your sputum culture was still pending at the time of discharge. If this grows out a bacteria that is not sensitive to the antibiotics you are on, you will be contacted. Please keep an eye on your blood pressures with a blood pressure cuff at home. If they are consistently over 140/90, please let your PCP know. Pending Studies at Discharge: Yes (Sputum culture) Stand-Alone Forms: [facility] Medications and DC Order Prescriptions: New prednisone 10 mg Tablet 30 mg PO DAILY Qty: 6 0RF Rx Instructions: X 1 day and decrease by 10 mg each day until gone cefdinir 300 mg capsule 300 mg PO BID Qty: 8 0RF Continued levothyroxine 175 mcg tablet 175 mcg PO QAM Qty: 90 3RF amlodipine 2.5 mg tablet 2.5 mg PO QAM Qty: 90 3RF folic acid 1 mg tablet 1 mg PO BID Qty: 180 3RF losartan 100 mg tablet 100 mg PO QAM Qty: 90 3RF isosorbide mononitrate 30 mg tablet extended release 24 hr 30 mg PO QAM Qty: 90 3RF Rx Instructions: take 1 tablet by mouth every morning atenolol [Tenormin] 50 mg tablet 50 mg PO BID Qty: 180 3RF nortriptyline 25 mg capsule 50 mg PO HS Qty: 180 3RF Rx Instructions: take 2 capsules by mouth at bedtime atorvastatin 80 mg tablet 80 mg PO HS Qty: 90 3RF pantoprazole [Protonix] 40 mg tablet,delayed release (DR/EC) 40 mg PO BID Qty: 180 3RF ondansetron HCl 8 mg tablet 8 mg PO TID PRN (Reason: nausea and vomiting) Qty: 30 1RF metoclopramide HCl [Reglan] 10 mg tablet 10 mg PO QID Qty: 120 5RF bumetanide 1 mg tablet 1 mg PO BID Qty: 180 3RF hydrocodone-homatropine 5-1.5 mg tablet 1 tab PO BID PRN (Reason: cough) Qty: 60 0RF oxycodone-acetaminophen [Percocet] 5-325 mg tablet 1 - 2 tab PO DAILY PRN (Reason: Pain) 30 Days Qty: 60 0RF albuterol sulfate 90 mcg/actuation HFA aerosol inhaler 2 puff inhalation Q4H PRN (Reason: Shortness Of Breath) Qty: 8.5 3RF levalbuterol HCl 0.63 mg/3 mL solution for nebulization 0.63 mg inhalation Q6H PRN (Reason: shortness of breath or wheezing) Qty: 360 5RF (DME) BiPap Machine Misc .Route Qty: 1 0RF Rx Instructions: BiPAP 15/8, heated humidification, compliance download capabilities. Current machine greater than 5 years old and unable to provide compliance data: DME [employer] tamsulosin [Flomax] 0.4 mg capsule 0.4 mg PO QPM Qty: 90 3RF aspirin 81 mg tablet,delayed release (DR/EC) 81 mg PO QAM ferrous sulfate 325 mg (65 mg iron) tablet 325 mg PO BID Excedrin Migraine 250-250-65 mg tablet 1 tab PO Q6H PRN (Reason: Migraine Headache) Trelegy Ellipta 100-62.5-25 mcg blister with device 1 inh INHALATION QAM 90 Days Qty: 90 3RF montelukast 10 mg tablet 10 mg PO DAILY glucosamine sulfate [Glucosamine] 500 mg Tablet 500 mg PO QAM Probiotic 3 billion cell Capsule 3,000 mmu cells PO QAM magnesium 200 mg tablet 400 mg PO QAM fexofenadine [[place] Allergy] 180 mg Tablet 180 mg PO QAM famotidine 20 mg Tablet 20 mg PO BID Rx Instructions: TAKES WITH BREAKFAST AND LUNCH insulin aspart U-100 [Novolog FlexPen U-100 Insulin] 100 unit/mL (3 mL) insulin pen 0 sliding scale dose SUBCUT UD Rx Instructions: 1-4 CARBS IS 1 UNIT subcut daily; SLIDING SCALE; FOR EVERY 20 CARBS, ADD ANOTHER 1 UNIT OF INSULIN 2 EXTRA 2 UNITS FOR 150-170 CARBS AND IF OVER 150, ADD 2 UNITS FOR EVERY 20 POINTS OVER FOR HIS BLOOD SUGAR insulin degludec [Tresiba FlexTouch U-100] 100 unit/mL (3 mL) insulin pen 38 unit subcut BID famotidine 40 mg tablet 40 mg PO HS promethazine 25 mg tablet 25 mg PO Q6H PRN (Reason: n/v) Rx Instructions: take 1 tablet by mouth every 6 hours if needed for nausea and vomiting dutasteride 0.5 mg capsule 0.5 mg PO QAM sennosides [senna] 8.6 mg Tablet 8.6 mg PO BID acetaminophen [Tylenol] 325 mg Tablet 325 mg PO Q6H PRN (Reason: PAIN/FEVER) sodium chloride 1,000 mg Tablet,Soluble 2,000 mg PO TID sucralfate 1 gram tablet 1 g PO ACHS Rx Instructions: PLEASE SEE ATTACHED FOR DETAILED DIRECTIONS Discharge Orders: Discharge Order (Routine); Ordered 01/15/25 Ordered By: Lydia Galdamez/Other Patient Handouts: Managing Type 1 Diabetes Admission Data Admit Date/Time: 01/13/25 22:10 Attending Provider: Lydia Grace Admit Provider: Rosa Hunt Primary Care Provider: Josh Squires III Other Providers: Edmond Alford Other Interventions: Discharge Summary Assessment (RN) Last Done: 01/15/25 09:54 Hospital Stay Data Consultations 01/13/25 20:34 ED Decision to Admit Stat Pending Results Patient Have Any Pending Studies at Discharge: Yes (Sputum culture) Discharge Instructions Given to Patient (Per Discharging Provider) Please finish out 4 more days of the oral antibiotic called cefdinir, twice daily. You already completed 3 days of high-dose azithromycin as your second antibiotic. Please complete the prednisone taper, starting with 30 mg daily and going down by 10 mg each day until gone. This will make your blood sugars higher than usual and you can adjust for this with your NovoLog sliding scale. You will need a repeat chest x-ray in 4 to 6 weeks to ensure resolution of your pneumonia. Your sputum culture was still pending at the time of discharge. If this grows out a bacteria that is not sensitive to the antibiotics you are on, you will be contacted. Please keep an eye on your blood pressures with a blood pressure cuff at home. If they are consistently over 140/90, please let your PCP know. Total Time Total Time Spent Total Time Spent (In Minutes): 35 minutes Total Time Includes: Examination of the Patient, Discharge Planning and Me dication Reconciliation Coding Level of Care Code 84906 INP/OBS DISCH >30 MIN Diagnoses Community acquired pneumonia, unspecified laterality J18.9 Laterality: unspecified laterality Hyponatremia E87.1 Uncontrolled type 1 diabetes mellitus with hyperglycemia E10.65 Glycemic state: with hyperglycemia Chronic bronchitis, unspecified chronic bronchitis type J44.9 COPD type: unspecified COPD
[2025-01-15 09:55] VITALS: BP 176/62
--- NOTE | 2025-01-16 09:03 | Coding Query ---
CODING QUERY To promote full compliance with coding requirements relating to patient care, provider participation is requested in all cases of computer language coder uncertainty. Please assist us with the question(s) below: Coding Question(s): Pneumonia is documented throughout the record and the Discharge Summary documents, "Your sputum culture was still pending at the time of discharge. If this grows out a bacteria that is not sensitive to the antibiotics you are on, you will be contacted", and has an Addendum with documentation of, "After patient left the hospital, his sputum culture came back with Enterobacter cloacae complex, sensitivities pending. Traditionally this can be resistant to cefdinir. I prescribed levofloxacin 750 Mg p.o. once daily x 5 days to his pharmacy. I called his house and talk to his about the results and she will stop the cefdinir and start the levofloxacin tomorrow". Please specify below, regarding the Pneumonia: ( ) Community Acquired Pneumonia, Unspecified (x ) Pneumonia, Specified. Please Specify__Enterobacter cloacae community acquired pneumonia Physician's Response(s): Thank you Shama Sofia Principal Diagnosis: "that condition established after study, to be chiefly responsible for occasioning the admission of the patient to the hospital for care." Co-Existing Principal Diagnosis: "when two or more diagnoses equally meet the criteria for principal diagnosis as determined by the circumstances of admission, diagnostic work up, and/or therapy provided, and the Alphabetic Index, Tabular List, or another coding guideline does not provide sequencing direction, any one of the diagnoses may be sequenced first." "When the physician has documented what appears to be a current diagnosis in the body of the record, but has not included the diagnosis in the final diagnostic statement, the physician should be asked whether the diagnosis should be added." (Source Coding [facility] 2 QTR90. p3-4) LEELA
== END 2025-01-15 10:16 | disposition home or self-care (01) | DRG 178 ==
LOC: ED 17:25 → SUATTDRO 22:10 → 2N 22:10

== ENCOUNTER 2025-05-11 13:28 | Inpatient (IN) ==
[2025-05-11 14:28] LABS: Hematocrit (blood only) 36.3 % (42.0-52.0); Hemoglobin 12.5 g/dl (14.0-18.0); Immature Granulocytes # (auto) 0.02 K/uL (0.01-0.20); Immature Granulocytes % (auto) 0.3 %; Mean Corpuscular Hemoglobin 31.0 pg (25.0-34.0); Mean Corpuscular Volume 90.1 fL (80.0-100.0); Platelet Count 275 K/uL (130-400); RDW Standard Deviation 41.8 fL (36.4-46.3); Red Blood Count 4.03 M/uL (4.70-6.10); White Blood Count 7.86 K/ul (4.8-10.8)
--- NOTE | 2025-05-11 14:31 | Emergency Department Note ---
History of Present Illness General Chief complaint: Abdominal Pain Time Seen by Provider: 05/11/25 14:21 Source: patient and family ( at bedside) History of Present Illness Provider complaint: Abdominal pain Maximum Pain Intensity: 8 64-year-old male presents emergency department for abdominal pain. Patient reports that at 9:30 AM today he heard a beep stating that his blood sugar was low. Patient states he took some oral glucose candies and then lie down. Patient states he then became very diaphoretic and started having extreme lower abdominal pain. He states the pain travels from his left lower quadrant to his right lower quadrant. Patient reports nausea vomiting and diarrhea. at bedside reported no hematemesis cough or emesis bilious vomiting melena or hematochezia. did confirm that the patient was very diaphoretic and was shaking but alert. Home Medications Medication Instructions Recorded Confirmed Type lactobacillus combination no.4 3 3,000 mmu cells PO QAM 08/06/18 05/11/25 History billion cell capsule (Probiotic) aspirin 81 mg tablet,delayed 81 mg PO QAM 06/09/19 05/11/25 History release glucosamine sulfate 500 mg tablet 500 mg PO QDL 07/05/19 05/11/25 History (Glucosamine) ferrous sulfate 325 mg (65 mg 325 mg PO BID 03/25/21 05/11/25 History iron) tablet fexofenadine 180 mg tablet 180 mg PO QAM 08/28/22 05/11/25 History (Manuela Allergy) levothyroxine 175 mcg tablet 175 mcg PO QAM #90 tabs 11/06/23 05/11/25 Rx sdomdmg-aahkfnyutgacg-ymybfhlm 250 1 tab PO Q6H PRN Migraine Headache 01/08/24 05/11/25 History mg-250 mg-65 mg tablet (Excedrin Migraine) folic acid 1 mg tablet 1 mg PO BID #180 tabs 05/20/24 05/11/25 Rx BiPap Machine #1 ea 05/29/24 04/27/25 Rx atorvastatin 80 mg tablet 80 mg PO HS #90 tabs 07/08/24 05/11/25 Rx pantoprazole 40 mg tablet,delayed 40 mg PO BID #180 tabs 07/21/24 05/11/25 Rx release (Protonix) fluticasone fur. 100 mcg-umeclid 1 inh inhalation QAM 90 days #90 09/08/24 05/11/25 Rx 62.5 mcg-vilant 25 mcg puffs inhalat.powder (Trelegy Ellipta) metoclopramide HCl 10 mg tablet 10 mg PO QID #120 tabs 09/22/24 05/11/25 Rx (Reglan) bumetanide 1 mg tablet 1 mg PO BID #180 tabs 09/29/24 05/11/25 Rx dutasteride 0.5 mg capsule 0.5 mg PO QAM 11/06/24 05/11/25 History famotidine 20 mg tablet 20 mg PO BID 11/06/24 05/11/25 History insulin aspart U-100 100 unit/mL 0 sliding scale dose subcut UD 11/06/24 05/11/25 History (3 mL) subcutaneous pen (Novolog FlexPen U-100 Insulin aspart) insulin degludec 100 unit/mL (3 38 unit subcut BID 11/06/24 05/11/25 History mL) subcutaneous pen (Tresiba FlexTouch U-100 insulin) promethazine 25 mg tablet 25 mg PO Q6H PRN n/v 11/06/24 05/11/25 History montelukast 10 mg tablet 10 mg PO HS 11/24/24 05/11/25 History albuterol sulfate 90 mcg/actuation 2 puff inhalation Q4H PRN 01/12/25 05/11/25 Rx aerosol inhaler Shortness Of Breath #8.5 grams acetaminophen 325 mg tablet 325 mg PO Q6H PRN PAIN/FEVER 01/13/25 05/11/25 History (Tylenol) sennosides 8.6 mg tablet (senna) 8.6 mg PO BID 01/13/25 05/11/25 History sodium chloride 1,000 mg soluble 1,000 - 2,000 mg PO QID 01/13/25 05/11/25 History tablet ondansetron HCl 8 mg tablet 8 mg PO TID PRN nausea and 03/04/25 05/11/25 Rx vomiting #30 tabs hydrocodone-homatropine 5 mg-1.5 1 tab PO BID PRN cough #60 tabs 03/23/25 05/11/25 Rx mg tablet magnesium oxide 400 mg PO DAILY 03/31/25 05/11/25 History amlodipine 2.5 mg tablet 2.5 mg PO QAM #90 tabs 04/06/25 05/11/25 Rx famotidine 40 mg tablet 40 mg PO HS 04/13/25 05/11/25 History levalbuterol HCl 0.63 mg/3 mL 0.63 mg (3 mL) inhalation Q6H PRN 04/13/25 05/11/25 Rx solution for nebulization shortness of breath or wheezing #360 mL oxycodone-acetaminophen 5 mg-325 1 - 2 tab PO DAILY PRN Pain 30 04/15/25 05/11/25 Rx mg tablet (Percocet) days #60 tabs clopidogrel 75 mg tablet 75 mg PO DAILY #30 tabs 04/29/25 05/11/25 Rx atenolol 50 mg tablet (Tenormin) 50 mg PO BID #180 tabs 05/04/25 05/11/25 Rx isosorbide mononitrate 30 mg 30 mg PO QAM #90 tabs 05/04/25 05/11/25 Rx tablet,extended release 24 hr losartan 100 mg tablet 100 mg PO QAM #90 tabs 05/04/25 05/11/25 Rx nortriptyline 25 mg capsule 50 mg (2 x 25 mg) PO HS #180 caps 05/04/25 05/11/25 Rx tamsulosin 0.4 mg capsule (Flomax) 0.4 mg PO QPM #90 caps 05/07/25 05/11/25 Rx sucralfate 1 gram tablet 1 g PO ACHS 05/11/25 05/11/25 History Allergies Allergy/AdvReac Type Severity Reaction Status Date / Time lisinopril Allergy Severe " TONGUE Verified 05/11/25 16:11 SWELLS"--ANGIOEDEMA lorazepam AdvReac Intermediate Hallucinati Verified 05/11/25 16:11 ons Past Med/Surg History Problem List (Updated 05/11/25 @ 22:45 by Travis Wall MD) Enteropathogenic Escherichia coli infection Abnormality of esophagus Recurrent pneumonia Stroke-like symptoms (Acute) Community acquired pneumonia Hyponatremia (Acute) Mitral regurgitation Acquired blindness GERD (gastroesophageal reflux disease) BPH NOS w ur obs/LUTS Multifocal pneumonia (Acute) Exposure to COVID-19 virus (Acute) Hypertension Chronic venous insufficiency Edema Complex sleep apnea syndrome Hyperlipidemia (Chronic) Sleep apnea (Acute) Peripheral neuropathy (Acute) PAD (peripheral artery disease) (Acute) Neurogenic bladder (Acute) Gastroparesis (Acute) Essential hypertension (Acute) Depression (Acute) Chronic cough (Acute) Chronic constipation (Acute) CKD (chronic kidney disease) stage 2, GFR 60-89 ml/min (Acute) CAD (coronary atherosclerotic disease) (Acute) Anemia of chronic disease (Acute) Acquired solitary kidney (Acute) Hypothyroidism COPD (chronic obstructive pulmonary disease) (Chronic) Medical History Chronic hyponatremia Chronic headache Diabetes mellitus type 1, uncontrolled Dysphagia History of recent pneumonia 03/31/25 (admitted with pneumonia and TIA) per pt has had pneumonia 3x this year--questioning if pt has been having aspiration pneumonia--reason for scheduled EGD, has been having some coughing still, nick in am History of TIA (transient ischemic attack) 03/31/2025--no deficits--unknown cause, did have low sodium at the time and diagnosed with pneumonia as well--was just started on plavix afterwards--follows with Dr. Espino with [facility] History of trigger finger release bilat hands CKD (chronic kidney disease) follows with Dr. Neves Neurogenic bladder Edema BLE's History of COVID-19 2022 Hypothyroidism Acquired solitary kidney pt has two kidneys, denies COPD (chronic obstructive pulmonary disease) Gastroparesis Chronic cough Depression History of pneumonia was inpatient [facility], DC'ed 01/15/25 Mitral regurgitation follows with Dr. Greenfield Acquired blindness of both eyes Hx of sepsis approx 2019 from failed root canal Hx of gastric ulcer Hx of angioedema no known cause Unstable angina stable at present History of stroke 2013 > slight cognitive issues since, helps with medical things LUZMA (obstructive sleep apnea) bipap GERD (gastroesophageal reflux disease) Family history of colon cancer DM type 1 (diabetes mellitus, type 1) History of angiography Premature ventricular beats History of subarachnoid hemorrhage 2013; memory/cognitive deficits (reports total of 3 strokes but only known event was in 2014 -- remaining strokes were incidental findings) CAD (coronary artery disease), andreafski coronary artery PAD (peripheral artery disease) BPH (benign prostatic hyperplasia) Chronic diastolic CHF (congestive heart failure) pt unable to verify Migraine Microcytic anemia hx Hyperlipidemia Hypertension Ischemic colitis Over 10 years ago (before 2007) Asthma uses res inh few times per week per pt Surgical History Hx of surgical procedure I&D left submandibular and floor of the mouth History of carpal tunnel release right History of esophagogastroduodenoscopy (EGD) Difficult airway for intubation reports he was told he was a difficult intubation after rectal abscess surgery at [facility]. says he has been intubated since then without issues; denies problems prior to that procedure, as well. History of vasectomy History of tonsillectomy and adenoidectomy History of hand surgery Hand Incision Tendon Sheath of a Finger History of rectal abscess I&D History of transurethral resection of prostate History of appendectomy History of eye surgery multiple History of ventral hernia repair H/O colonoscopy recent 02/2025 @ [place] Family History Mother Hypertension Grandfather (Paternal) Colon cancer Prostate cancer Brother Brain cancer Diabetes Bone cancer Kidney disease Lung cancer Son Diabetes Lung cancer Father Hemorrhagic stroke Hypertension Diabetes Heart disease Other Breast cancer No family history of adverse response to anesthesia Testicular cancer Denies family history of Ovarian cancer Myocardial infarction Social History Smoking Status: Former smoker Tobacco Type: Cigarettes Age Started Using Tobacco: 16; Age Quit Using Tobacco: 49; packs per day: 1.5; Second Hand Exposure: No; Do You Dip or Chew Tobacco: No; Tobacco Cessation Education Requested by Patient: No Hx Alcohol Use: Yes Alcohol type: hard liquor Alcohol Intake Frequency: Monthly or Less Hx Substance Use: No Preferred Language: Khmer Communication Ability: Effective Communication Ability Comment: pt is blind-- signs consents Communication Tools: Other Visual Impairment: No Limitations Hearing Ability: Hard of Hearing Veterinary Pathologist Required: No Beliefs That Will Affect Care: None marital status: Current Living Situation: Spouse current occupational status: disabled 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 How many Children do You have: 2 Other Information That Helps Us Care for You: No Feels Safe at Home: Yes Safety Concerns: Feels Safe At This Time Childhood Exposure to Second-Hand Smoke: Yes Diet: regular Diet Comment: regular Dental Care, Regularly: Yes Physical Activity Frequency: Does not Exercise Seatbelt Use: always Sunscreen Use: Yes Assistive Devices: Other Assistive Devices Comment: pt blind needs guidance when in new places Physical Exam Vital Signs Vital Signs - 24 hr 05/11/25 13:34 05/11/25 14:18 05/11/25 14:18 Temperature 35.9 C L Temperature Source Skin Pulse Rate 57 L Pulse Rate from SpO2 Sensor Respiratory Rate 20 Respiratory Effort / Characteristics Non-Labored Spontaneous Respiratory Depth Normal Respiratory Pattern Regular Blood Pressure 145/71 H 140/84 140/84 Blood Pressure Mean 95 101 101 Pulse Oximetry 100 Oxygen Delivery Method Room Air Sepsis Recent Fever Within 48 Hours No Sepsis New/Unexplained Change in Mental Status N/A Sepsis Action Taken by Nursing No Action Required 05/11/25 14:21 05/11/25 14:30 05/11/25 14:34 Temperature Temperature Source Pulse Rate 54 L 54 L 58 L Pulse Rate from SpO2 Sensor 55 L 54 L Respiratory Rate 15 Respiratory Effort / Characteristics Respiratory Depth Respiratory Pattern Blood Pressure Blood Pressure Mean Pulse Oximetry 100 100 Oxygen Delivery Method Sepsis Recent Fever Within 48 Hours Sepsis New/Unexplained Change in Mental Status Sepsis Action Taken by Nursing 05/11/25 14:45 05/11/25 14:51 05/11/25 15:09 Temperature Temperature Source Pulse Rate 58 L 59 L 65 Pulse Rate from SpO2 Sensor 58 L 58 L Respiratory Rate 14 15 16 Respiratory Effort / Characteristics Respiratory Depth Respiratory Pattern Blood Pressure Blood Pressure Mean Pulse Oximetry 98 97 Oxygen Delivery Method Sepsis Recent Fever Within 48 Hours Sepsis New/Unexplained Change in Mental Status Sepsis Action Taken by Nursing 05/11/25 15:18 05/11/25 15:20 05/11/25 15:21 Temperature Temperature Source Pulse Rate 61 61 Pulse Rate from SpO2 Sensor 60 61 Respiratory Rate 15 14 Respiratory Effort / Characteristics Respiratory Depth Respiratory Pattern Blood Pressure 137/56 L Blood Pressure Mean 66 Pulse Oximetry 98 98 Oxygen Delivery Method Sepsis Recent Fever Within 48 Hours Sepsis New/Unexplained Change in Mental Status Sepsis Action Taken by Nursing 05/11/25 15:33 05/11/25 16:18 05/11/25 16:21 Temperature Temperature Source Pulse Rate 61 57 L 65 Pulse Rate from SpO2 Sensor 61 58 L 65 Respiratory Rate 17 14 20 Respiratory Effort / Characteristics Respiratory Depth Respiratory Pattern Blood Pressure Blood Pressure Mean Pulse Oximetry 98 98 99 Oxygen Delivery Method Sepsis Recent Fever Within 48 Hours Sepsis New/Unexplained Change in Mental Status Sepsis Action Taken by Nursing Physical Exam HENT: Exam performed. - Head: Normocephalic and atraumatic. EYES: Patient is blind. NECK: Normal range of motion. Neck supple. No JVD present. CV: Normal rate, regular rhythm, normal heart sounds and intact distal pulses. There is no peripheral edema. Palpable radial pulses bue. PULM/CHEST: Effort normal and breath sounds normal. No respiratory distress. No stridor. He has no wheezes. He has no rales. ABD: The abdomen is soft. He has distension. Anterior abdominal wall ecchymosis, reports they are from insulin injections. There is tenderness to palpation of the left lower quadrant, right lower quadrant, and suprapubic area. There is no rebound, no guarding NEURO: Motor and sensation grossly intact. Course Course 1421: The patient was evaluated in room C12. A complete history and physical exam was performed Cardiac monitoring: An order was placed for continuous cardiac monitoring. The monitor shows a rate of 60 with sinus rhythm interpreted by nv 1550: Vital signs stable. Labs are significant for sodium of 125. Patient is positive for enteropathogenic E. coli. Patient will be treated with gentle hydration normal saline. Patient will be admitted for his hyponatremia. Will defer antibiotics to the hospitalist team. Administered Medications Atenolol (Atenolol 50 Mg Tablet) 50 mg PO BID SILVINA Stop: 06/10/25 20:59 Last Admin: 05/11/25 20:01 Dose: 50 mg Documented By: [facility] Enoxaparin Sodium (Enoxaparin Inj 40 Mg/0.4 Ml Syr) 40 mg SQ Q24H SILVINA Stop: 06/10/25 18:14 Last Admin: 05/11/25 19:53 Dose: 40 mg Documented By: [facility] Famotidine (Famotidine 40 Mg Tablet) 40 mg PO HS SILVINA Stop: 06/10/25 20:59 Last Admin: 05/11/25 20:02 Dose: 40 mg Documented By: [facility] Folic Acid (Folic Acid 1 Mg Tab) 1 mg PO BID SILVINA Stop: 06/10/25 20:59 Last Admin: 05/11/25 20:50 Dose: 1 mg Documented By: Insulin Aspart (Insulin Aspart Per Unit Charge) 0 units SC ACHS SILVINA Stop: 06/10/25 18:14 Last Admin: 05/11/25 20:55 Dose: 6 units Documented By: ANTONELLA Co-signed By: SAMIRA Admin: 05/11/25 18:15 Dose: Not Given Documented By: CHANTEL Insulin Glargine (Lantus Per Unit Charge) 15 units SQ BID SILVINA Stop: 06/10/25 20:59 Last Admin: 05/11/25 20:55 Dose: 15 units Documented By: ANTONELLA Co-signed By: SAMIRA Metoclopramide HCl (Metoclopramide Hcl 10 Mg Tablet) 10 mg PO QID SILVINA Stop: 06/10/25 18:14 Last Admin: 05/11/25 20:50 Dose: 10 mg Documented By: Admin: 05/11/25 19:54 Dose: 10 mg Documented By: TIESHA Nortriptyline HCl (Nortriptyline Hcl 25 Mg Cap) 50 mg PO HS SILVINA Stop: 06/10/25 20:59 Last Admin: 05/11/25 20:50 Dose: 50 mg Documented By: ANTONELLA Oxycodone HCl (Oxycodone Hcl Ir 5 Mg Tab (Immediate Release)) 10 mg PO Q6H PRN PRN Reason: Moderate Pain 4-610 Stop: 05/25/25 17:56 Last Admin: 05/11/25 19:58 Dose: 10 mg Documented By: TIESHA Pantoprazole Sodium (Pantoprazole 40 Mg Tab) 40 mg PO BID SILVINA Stop: 06/10/25 20:59 Last Admin: 05/11/25 20:50 Dose: 40 mg Documented By: ANTONELLA Sodium Chloride (Sodium Chloride 1 Gm Tablet) 2 gm PO BID@0800,2100 SILVINA Stop: 06/10/25 20:59 Last Admin: 05/11/25 20:50 Dose: 2 gm Documented By: ANTONELLA Tamsulosin HCl (Tamsulosin Hcl 0.4 Mg Cap) 0.4 mg PO QPM SILVINA Stop: 06/10/25 20:59 Last Admin: 05/11/25 20:50 Dose: 0.4 mg Documented By: ANTONELLA Discontinued Medications Dextrose (Dextrose 50% 50 Ml Syringe) 50 ml IV NOW STA Stop: 05/11/25 18:01 Last Admin: 05/11/25 18:04 Dose: 50 ml Documented By: CHANTEL Sodium Chloride (Nss) 1,000 mls @ 125 mls/hr IV .Q8H SILVINA Stop: 05/14/25 14:59 Last Infusion: 05/11/25 18:03 Dose: Infused Documented By: Admin: 05/11/25 15:20 Dose: 125 mls/hr Documented By: VENKATA Ciprofloxacin (Cipro / D5w) 400 mg in 200 mls @ 100 mls/hr IV NOW STA; Protocol Stop: 05/11/25 20:45 Last Infusion: 05/11/25 21:59 Dose: Infused Documented By: Admin: 05/11/25 19:54 Dose: 100 mls/hr Documented By: TIESHA Ioversol (Optiray 320 125ml) 115 ml IV ONCE ONE Stop: 05/11/25 15:02 Last Admin: 05/11/25 15:03 Dose: 115 ml Documented By: LAN Morphine Sulfate (Morphine Sulfate 2 Mg/Ml Carp) 2 mg IV NOW STA Stop: 05/11/25 14:32 Last Admin: 05/11/25 14:44 Dose: 2 mg Documented By: CHANTEL Ondansetron HCl (Ondansetron Inj 2 Mg/Ml 2 Ml Vial) 4 mg IV NOW STA Stop: 05/11/25 14:32 Last Admin: 05/11/25 14:44 Dose: 4 mg Documented By: CHANTEL Medical Decision Making Laboratory Data Attestation: I reviewed the patient's lab results. 05/11/25 14:12 05/11/25 20:52 Lab Results 05/11/25 05/11/25 05/11/25 Range/Units 14:01 14:12 14:12 WBC 7.86 (4.8-10.8) K/ul RBC 4.03 L (4.70-6.10) M/uL Hgb 12.5 L (14.0-18.0) g/dl Hct 36.3 L (42.0-52.0) % MCV 90.1 (80.0-100.0) fL MCH 31.0 (25.0-34.0) pg MCHC 34.4 (32.0-36.0) g/dL RDW Std Deviation 41.8 (36.4-46.3) fL RDW Coeff of Analisa 12.7 (11.5-14.5) % Plt Count 275 (130-400) K/uL MPV 10.0 (9.4-12.4) fL Immature Gran % (Auto) 0.3 % Neut % (Auto) 87.6 % Lymph % (Auto) 6.0 % Berrien % (Auto) 5.5 % Eos % (Auto) 0.3 % Baso % (Auto) 0.3 % Neut # (Auto) 6.90 H (1.40-6.50) K/uL Lymph # (Auto) 0.47 L (1.20-3.40) K/uL Berrien # (Auto) 0.43 (0.11-0.59) K/uL Eos # (Auto) 0.02 (0.00-0.50) K/uL Baso # (Auto) 0.02 (0.00-0.20) K/uL Immature Gran # (Auto) 0.02 (0.01-0.20) K/uL VBG pH (7.36-7.41) VBG pCO2 (38-50) mmHg VBG pO2 mmHg VBG HCO3 mmol/L VBG O2 Saturation % VBG Base Excess mEq/L Sodium 125 L (136-145) mmol/L Potassium 4.1 (3.5-5.1) mmol/L Chloride 92 L (98-107) mmol/L Carbon Dioxide 26 (21-32) mmol/L Anion Gap 7 (3-11) BUN 17 (6-23) mg/dl Creatinine 1.35 (0.6-1.4) mg/dl Est Cr Clr Drug Dosing Not Reportable eGFR 58.27 BUN/Creatinine Ratio 12.6 (10-20) Glucose 168 H (70-99(Fasting)) mg/dl POC Glucose (70-99) mg/dl Osmolality 268 L Cancelled (280-300) mOsm/kg Calcium 9.0 (8.6-10.3) mg/dl Total Bilirubin 0.6 (0.2-1.0) mg/dl AST 25 (13-39) U/L ALT 22 (7-52) U/L Alkaline Phosphatase 127 H (34-104) U/L Total Protein 6.9 (6.0-8.3) gm/dl Albumin 4.3 (3.4-5.0) gm/dl Globulin 2.6 (2.5-4.0) gm/dl Albumin/Globulin Ratio 1.7 (0.9-2) Lipase 22 (11-82) U/L Stl C. cayetanensis PCR Not Detected (NotDetected) Stool Rotavirus A PCR Not Detected (NotDetected) Stl Adenov F 40/ PCR Not Detected (NotDetected) Stool Astrovirus (PCR) Not Detected (NotDetected) Stool Campylobacter PCR Not Detected (NotDetected) Stl C. diff Tox B Gene Negative Cdiff Gene (Neg) Stl C. diff 027-NAP1-BI NEGATIVE Stool Cryptosporidium PCR Not Detected (NotDetected) Stl E.coli Shiga Tox PCR Not Detected (NotDetected) Stl Enterotoxigenic E PCR Not Detected (NotDetected) Stool EPEC (PCR) DETECTED A* (NotDetected) Stool EAEC (PCR) Not Detected (NotDetected) Stl E. histolytica PCR Not Detected (NotDetected) Stool Giardia Lamblia PCR Not Detected (NotDetected) Stool Salmonella PCR Not Detected (NotDetected) Stool Sapovirus (PCR) Not Detected (NotDetected) Stl P. shigelloides PCR Not Detected (NotDetected) Stl Shigella/EIEC PCR Not Detected (NotDetected) St Y.enterocolitica PCR Not Detected (NotDetected) Stool Vibrio (PCR) Not Detected (NotDetected) Stl Vibrio cholerae PCR Not Detected (NotDetected) Stl Norovirus GI/GII PCR Not Detected (NotDetected) 05/11/25 05/11/25 05/11/25 Range/Units 14:40 16:20 16:35 WBC (4.8-10.8) K/ul RBC (4.70-6.10) M/uL Hgb (14.0-18.0) g/dl Hct (42.0-52.0) % MCV (80.0-100.0) fL MCH (25.0-34.0) pg MCHC (32.0-36.0) g/dL RDW Std Deviation (36.4-46.3) fL RDW Coeff of Analisa (11.5-14.5) % Plt Count (130-400) K/uL MPV (9.4-12.4) fL Immature Gran % (Auto) % Neut % (Auto) % Lymph % (Auto) % [place] % (Auto) % Eos % (Auto) % Baso % (Auto) % Neut # (Auto) (1.40-6.50) K/uL Lymph # (Auto) (1.20-3.40) K/uL [place]rien # (Auto) (0.11-0.59) K/uL Eos # (Auto) (0.00-0.50) K/uL Baso # (Auto) (0.00-0.20) K/uL Immature Gran # (Auto) (0.01-0.20) K/uL VBG pH 7.37 (7.36-7.41) VBG pCO2 46 (38-50) mmHg VBG pO2 20 mmHg VBG HCO3 27 mmol/L VBG O2 Saturation < 60.0 % VBG Base Excess 0.9 mEq/L Sodium (136-145) mmol/L Potassium (3.5-5.1) mmol/L Chloride (98-107) mmol/L Carbon Dioxide (21-32) mmol/L Anion Gap (3-11) BUN (6-23) mg/dl Creatinine (0.6-1.4) mg/dl Est Cr Clr Drug Dosing eGFR BUN/Creatinine Ratio (10-20) Glucose (70-99(Fasting)) mg/dl POC Glucose 102 H 94 (70-99) mg/dl Osmolality (280-300) mOsm/kg Calcium (8.6-10.3) mg/dl Total Bilirubin (0.2-1.0) mg/dl AST (13-39) U/L ALT (7-52) U/L Alkaline Phosphatase (34-104) U/L Total Protein (6.0-8.3) gm/dl Albumin (3.4-5.0) gm/dl Globulin (2.5-4.0) gm/dl Albumin/Globulin Ratio (0.9-2) Lipase (11-82) U/L Stl C. cayetanensis PCR (NotDetected) Stool Rotavirus A PCR (NotDetected) Stl Adenov F 40/41 PCR (NotDetected) Stool Astrovirus (PCR) (NotDetected) Stool Campylobacter PCR (NotDetected) Stl C. diff Tox B Gene (Neg) Stl C. diff 027-NAP1-BI Stool Cryptosporidium PCR (NotDetected) Stl E.coli Shiga Tox PCR (NotDetected) Stl Enterotoxigenic E PCR (NotDetected) Stool EPEC (PCR) (NotDetected) Stool EAEC (PCR) (NotDetected) Stl E. histolytica PCR (NotDetected) Stool Giardia Lamblia PCR (NotDetected) Stool Salmonella PCR (NotDetected) Stool Sapovirus (PCR) (NotDetected) Stl P. shigelloides PCR (NotDetected) Stl Shigella/EIEC PCR (NotDetected) St Y.enterocolitica PCR (NotDetected) Stool Vibrio (PCR) (NotDetected) Stl Vibrio cholerae PCR (NotDetected) Stl Norovirus GI/GII PCR (NotDetected) Imaging Data Radiologist's Impression: Abdomen/Pelvis CTA 05/11/25 14:27 CT angio abdomen pelvis w con CLINICAL HISTORY: 64 years-old Male with abd pain llq acute left lower quadrant abdominal pain COMPARISON STUDY: CT abdomen and pelvis 11/06/2024 TECHNIQUE: Following the IV administration of 1:15 cc of Optiray, CT angiogram of the abdomen and pelvis was performed from the lung bases the proximal femora. Images are reviewed in the axial, sagittal, and coronal planes. 3-D MIPS images are created and assessed. All measurements were obtained according to NASCET criteria. IV contrast was administered without complication. A dose lowering technique was utilized adhering to the principles of ALARA. CT DOSE: 1315.03 mGy.cm FINDINGS: CTA: Heart is normal in size. Moderate to extensive atherosclerosis of the abdominal aorta and branch vessels. No abdominal aortic aneurysm or dissection. There is patency of the celiac trunk, superior and inferior mesenteric arteries. There is moderate stenosis at the origin of the common iliac arteries. Multifocal moderate stenoses of the internal iliac arteries. The external iliac arteries are patent. Multifocal stenoses of the femoral arteries, moderate within the right common femoral. Patent renal arteries. CT ABDOMEN/PELVIS: Mild pulmonary emphysema. Subsegmental right basilar opacities are likely chronic. No pneumatosis or pneumoperitoneum. Unremarkable spleen, moderately atrophic pancreas, gallbladder and adrenal glands. The liver is within normal limits. Mild nonspecific bilateral perinephric stranding. No hydronephrosis. Borderline enlarged prostate. Mild nonspecific urinary bladder wall thickening. No lymphadenopathy. Mild gaseous distention of the distal esophagus. No small bowel obstruction. Fat filled umbilical hernia, opening of 1.7 cm. There is circumferential wall thickening of the large bowel which extends from the mid transverse colon into the sigmoid with adjacent pericolonic stranding and fluid filled lumen. No discrete mass identified by CT. Normal appendix. No significant ascites. Unremarkable osseous structures. There are degenerative partial bony fusion of the pubic symphysis. IMPRESSION: 1. No bowel obstruction or pneumoperitoneum. 2. Findings compatible with an acute nonspecific left-sided colitis. 3. Atherosclerosis of the abdominal aorta and branch vessels without aneurysm, high-grade stenosis, dissection or occlusion identified. 4. Incidental findings as above. ACT 112: Negative or not required by law. The above report was generated using voice recognition software. It may contain grammatical, syntax or spelling errors. Electronically signed by: Irineo Arenas M.D. 05/11/2025 3:[address] 05/11/25 14:27 CT head/brain wo con CLINICAL HISTORY: ams. TECHNIQUE: Multiple axial CT images of the head were obtained without contrast. A dose lowering technique was utilized adhering to the principles of ALARA. CT DOSE: 625.8 mGy.cm COMPARISON: 03/31/2025 FINDINGS: There is mild motion artifact. No intracranial hemorrhage seen. No mass effect, midline shift, or hydrocephalus. No skull fracture seen. Visualized paranasal sinuses and mastoid air cells are clear. Stable small size and chronic calcification of both eyes. IMPRESSION: No acute findings. ACT 112: Negative or not required by law. The above report was generated using voice recognition software. It may contain grammatical, syntax or spelling errors. Electronically signed by: Alfonso Hayward M.D. 05/11/2025 3:18 PM Chest X-Ray 05/11/25 14:28 XR chest 1V portable CLINICAL HISTORY: ams COMPARISON STUDY: 04/03/2025 FINDINGS: Heart size and pulmonary vasculature are normal. No consolidation or pleural effusion. No pneumothorax. IMPRESSION: No acute findings. ACT 112: Negative or not required by law. Electronically signed by: Alfonso Hayward M.D. 05/11/2025 2:59 PM [facility] Narrative 1421: The patient was evaluated in room C12. A complete history and physical exam was performed Cardiac monitoring: An order was placed for continuous cardiac monitoring. The monitor shows a rate of 60 with sinus rhythm interpreted by me 1550: Vital signs stable. Labs are significant for sodium of 125. Patient is positive for enteropathogenic E. coli. Patient will be treated with gentle hydration normal saline. Patient will be admitted for his hyponatremia. Will defer antibiotics to the hospitalist team. Impression & Plan Hyponatremia Discharge Plan Visit Data Chief Complaint: Abdominal Pain ED Provider: Travis Wall Discharge Problem: Hyponatremia Patient Disposition: Admitted As Inpatient Condition: Fair Discharge Instructions Interventions: ED Discharge Assessment Last Done: 05/11/25 20:11
[2025-05-11] MEDS: ONDANSETRON INJ 2 MG/ML 2 ML VIAL IV STA (14:44)
[2025-05-11] MEDS: MoRPHine SULFATE 2 MG/ML CARP IV STA (14:44)
[2025-05-11 14:47] LABS: Base Excess VBG 0.9 mEq/L; HCO3 VBG 27 mmol/L; Oxygen Saturation VBG < 60.0 %; PCO2 VBG 46 mmHg (38-50); PO2 VBG 20 mmHg; pH VBG 7.37 (7.36-7.41)
[2025-05-11 14:49] LABS: Alanine Aminotransferase 22 U/L (7-52); Albumin Globulin Ratio 1.7 (0.9-2); Alkaline Phosphatase 127 U/L (34-104); Anion Gap 7 (3-11); Bilirubin,Total 0.6 mg/dl (0.2-1.0); Blood Urea Nitrogen 17 mg/dl (6-23); Calcium 9.0 mg/dl (8.6-10.3); Carbon Dioxide 26 mmol/L (21-32); Chloride 92 mmol/L (98-107); Globulin 2.6 gm/dl (2.5-4.0); Glucose 168 mg/dl (70-99(Fasting)); Lipase 22 U/L (11-82); Potassium 4.1 mmol/L (3.5-5.1); Sodium 125 mmol/L (136-145); Total Protein 6.9 gm/dl (6.0-8.3)
--- NOTE | 2025-05-11 15:00 | XRay Report ---
XR chest 1V portable CLINICAL HISTORY: ams COMPARISON STUDY: 04/03/2025 FINDINGS: Heart size and pulmonary vasculature are normal. No consolidation or pleural effusion. No p neumothorax. IMPRESSION: No acute findings. ACT 112: Negative or not required by law. Electronically signed by: Alfonso Hayward M.D. 05/11/2025 2:59 PM
[2025-05-11] MEDS: OPTIRAY 320 125ml IV ONE (15:03)
[2025-05-11] MEDS: SODIUM CHLORIDE 0.9% 1,000 ML IV SCH (15:20)
--- NOTE | 2025-05-11 15:20 | CT Scan Report ---
CT head/brain wo con CLINICAL HISTORY: ams. TECHNIQUE: Multiple axial CT images of the head were obtained without contrast. A dose lowering tech nique was utilized adhering to the principles of ALARA. CT DOSE: 625.8 mGy.cm COMPARISON: 03/31/2025 FINDINGS: There is mild motion artifact. No intracranial hemorrhage seen. No mass effect, midline mg ft, or hydrocephalus. No skull fracture seen. Visualized paranasal sinuses and mastoid air cells are clear. Stable small size and chronic calcification of both eyes. IMPRESSION: No acute findings. ACT 112: Negative or not required by law. The above report was generated using voice recognition software. It may contain grammatical, syntax o r spelling errors. Electronically signed by: Alfonso Hayward M.D. 05/11/2025 3:18 PM
--- NOTE | 2025-05-11 15:31 | CT Scan Report ---
CT angio abdomen pelvis w con CLINICAL HISTORY: 64 years-old Male with abd pain llq acute left lower quadrant abdominal pain COMPARISON STUDY: CT abdomen and pelvis 11/06/2024 TECHNIQUE: Following the IV administration of 1:15 cc of Optiray, CT angiogram of the abdomen and pel vis was performed from the lung bases the proximal femora. Images are reviewed in the axial, sagittal , and coronal planes. 3-D MIPS images are created and assessed. All measurements were obtained accord ing to NASCET criteria. IV contrast was administered without complication. A dose lowering technique was utilized adhering to the principles of ALARA. CT DOSE: 1315.03 mGy.cm FINDINGS: CTA: Heart is normal in size. Moderate to extensive atherosclerosis of the abdominal aorta and branch vessels. No abdominal aortic aneurysm or dissection. There is patency of the celiac trunk, superior and inferior mesenteric arteries. There is moderate stenosis at the origin of the common iliac arteri es. Multifocal moderate stenoses of the internal iliac arteries. The external iliac arteries are curry nt. Multifocal stenoses of the femoral arteries, moderate within the right common femoral. Patent bill al arteries. CT ABDOMEN/PELVIS: Mild pulmonary emphysema. Subsegmental right basilar opacities are likely chronic. No pneumatosis or pneumoperitoneum. Unremarkable spleen, moderately atrophic pancreas, gallbladder a nd adrenal glands. The liver is within normal limits. Mild nonspecific bilateral perinephric strandin g. No hydronephrosis. Borderline enlarged prostate. Mild nonspecific urinary bladder wall thickening. No lymphadenopathy. Mild gaseous distention of the distal esophagus. No small bowel obstruction. Fat filled umbilical her tania, opening of 1.7 cm. There is circumferential wall thickening of the large bowel which extends fro m the mid transverse colon into the sigmoid with adjacent pericolonic stranding and fluid filled lume n. No discrete mass identified by CT. Normal appendix. No significant ascites. Unremarkable osseous s tructures. There are degenerative partial bony fusion of the pubic symphysis. IMPRESSION: 1. No bowel obstruction or pneumoperitoneum. 2. Findings compatible with an acute nonspecific left-sided colitis. 3. Atherosclerosis of the abdominal aorta and branch vessels without aneurysm, high-grade stenosis, d issection or occlusion identified. 4. Incidental findings as above. ACT 112: Negative or not required by law. The above report was generated using voice recognition software. It may contain grammatical, syntax o r spelling errors. Electronically signed by: Irineo Arenas M.D. 05/11/2025 3:28 PM
[2025-05-11 15:41] LABS: Adenovirus F 40/41 PCR Not Detected (NotDetected); Campylobacter PCR Not Detected (NotDetected); Enteroaggregative E.coli(EAEC) Not Detected (NotDetected); Shiga-like Toxin E.coli (STEC) Not Detected (NotDetected); Vibrio species PCR Not Detected (NotDetected)
--- NOTE | 2025-05-11 17:03 | History & Physical Report ---
Date of Service May 11, 2025 Assessment & Plan (1) Enteropathogenic Escherichia coli infection: Plan: Likely influencing his abdominal pain is hypoglycemia. This is requiring hospitalization will consider it severe. Will place him on ciprofloxacin 500 p.o. twice daily. Will evaluate his volume status as this is influencing his hyponatremia. Other stool studies are negative (2) Hyponatremia: Plan: Patient is chronic hyponatremia taking 6 g of salt tablets a day and 2 g in the morning 1 at lunch and 1 at evening meal and 2 before bedtime. Patient is with a low serum osmolality urine osmolality is not checked. Patient was given a gram of crystalloid in the emergency department and will then subsequently be on a fluid restriction. Will recheck his sodium in the morning and hold his Bumex this evening (3) Diabetes mellitus type 1, uncontrolled: Plan: Patient is on basal bolus insulin typically on a sliding scale with different carb ratios based upon breakfast lunch supper bedtime. He has been having lows at home. Subsequently will reduce his basal insulin from 38 twice daily of Tresiba to 30 twice daily of glargine we will keep his sliding scale constant with a carb ratio of 4 and correction factor of 20 he will be on a consistent conservative diet we will keep it clear liquids at this point in time (4) CAD (coronary atherosclerotic disease): Plan: Patient takes his medications are confirmed to be dual antiplatelet therapy isosorbide 30 losartan 100 atenolol 50 twice daily amlodipine 2.5 (this will be held this a very low-dose) and Bumex 1 twice daily which be started the morning of the . (5) Complex sleep apnea syndrome: Plan: Patient is maintained on home BiPAP therapy. Plan 64-year-old type I diabetic presents with EPEC diarrhea and worsening of chronic hyponatremia. Patient is a diabetic typically with sliding scale insulin and basal insulin with endorgan damage including slight loss gastroparesis n eurogenic bladder and peripheral neuropathy. Patient suffers from cerebral and cardiovascular disease taking multiple medications as risk management. Patient has chronic hyponatremia typically taking 6 g of salt tablets a day. Patient denies any recent travel and is not sure where he may have picked up his diarrheal illness. For patient's chronic COPD is stable at this point in time he takes his Trelegy and rescue inhaler. Chronic hypothyroidism remains on Synthroid 175 For his BPH he is no longer on Avodart but is on Flomax to be continued Patient is taking nortriptyline for headaches DVT prevention is enoxaparin History of Present Illness Primary Care Provider: Josh Squires, III, [employer] 64-year-old male who is longstanding insulin requiring diabetes type 1 with multiple endorgan issues including gastroparesis neurogenic bladder neuropathy renal disease cardiovascular disease who presents after having episodes of abdominal pain diarrhea rigors chills and hypoglycemia at home. He is found to have enteropathogenic E. coli infectious diarrhea in the emergency department and has worsening of his typical longstanding hyponatremia. Patient feels weak and tired complains of abdominal distention and has had increased loose diarrhea which is outside of his typical constipation diarrhea pattern. Patient states of late he typically is having a distended abdomen but has not had the type of pain he is having today. On CT imaging it does show left-sided colitis but no right-sided changes. Pain admitted to the facility for hyponatremia enteropathogenic E. coli colitis. Allergies Allergy/AdvReac Type Severity Reaction Status Date / Time lisinopril Allergy Severe " TONGUE Verified 05/11/25 16:11 SWELLS"--ANGIOEDEMA lorazepam AdvReac Intermediate Hallucinati Verified 05/11/25 16:11 ons Home Medications Medication Instructions Recorded Confirmed Type lactobacillus combination no.4 3 3,000 mmu cells PO QAM 08/06/18 05/11/25 H istory billion cell capsule (Probiotic) aspirin 81 mg tablet,delayed 81 mg PO QAM 06/09/19 05/11/25 History release glucosamine sulfate 500 mg tablet 500 mg PO QDL 07/05/19 05/11/25 History (Glucosamine) ferrous sulfate 325 mg (65 mg 325 mg PO BID 03/25/21 05/11/25 History iron) tablet fexofenadine 180 mg tablet 180 mg PO QAM 08/28/22 05/11/25 History ([facility] Allergy) levothyroxine 175 mcg tablet 175 mcg PO QAM #90 tabs 11/06/23 05/11/25 Rx fjtgmsj-ztjjuwvtgfywz-hnkapbmp 250 1 tab PO Q6H PRN Migraine Headache 01/08/24 05/11/25 History mg-250 mg-65 mg tablet (Excedrin Migraine) folic acid 1 mg tablet 1 mg PO BID #180 tabs 05/20/24 05/11/25 Rx BiPap Machine #1 ea 05/29/24 04/27/25 Rx atorvastatin 80 mg tablet 80 mg PO HS #90 tabs 07/08/24 05/11/25 Rx pantoprazole 40 mg tablet,delayed 40 mg PO BID #180 tabs 07/21/24 05/11/25 Rx release (Protonix) fluticasone fur. 100 mcg-umeclid 1 inh inhalation QAM 90 days #90 09/08/24 05/11/25 Rx 62.5 mcg-vilant 25 mcg puffs inhalat.powder (Trelegy Ellipta) metoclopramide HCl 10 mg tablet 10 mg PO QID #120 tabs 09/22/24 05/11/25 Rx (Reglan) bumetanide 1 mg tablet 1 mg PO BID #180 tabs 09/29/24 05/11/25 Rx dutasteride 0.5 mg capsule 0.5 mg PO QAM 11/06/24 05/11/25 History famotidine 20 mg tablet 20 mg PO BID 11/06/24 05/11/25 History insulin aspart U-100 100 unit/mL 0 sliding scale dose subcut UD 11/06/24 05/11/25 History (3 mL) subcutaneous pen (Novolog FlexPen U-100 Insulin aspart) insulin degludec 100 unit/mL (3 38 unit subcut BID 11/06/24 05/11/25 History mL) subcutaneous pen (Tresiba FlexTouch U-100 insulin) promethazine 25 mg tablet 25 mg PO Q6H PRN n/v 11/06/24 05/11/25 History montelukast 10 mg tablet 10 mg PO HS 11/24/24 05/11/25 History albuterol sulfate 90 mcg/actuation 2 puff inhalation Q4H PRN 01/12/25 05/11/25 Rx aerosol inhaler Shortness Of Breath #8.5 grams acetaminophen 325 mg tablet 325 mg PO Q6H PRN PAIN/FEVER 01/13/25 05/11/25 History (Tylenol) sennosides 8.6 mg tablet (senna) 8.6 mg PO BID 01/13/25 05/11/25 History sodium chloride 1,000 mg soluble 1,000 - 2,000 mg PO QID 01/13/25 05/11/25 History tablet ondansetron HCl 8 mg tablet 8 mg PO TID PRN nausea and 03/04/25 05/11/25 Rx vomiting #30 tabs hydrocodone-homatropine 5 mg-1.5 1 tab PO BID PRN cough #60 tabs 03/23/25 05/11/25 Rx mg tablet magnesium oxide 400 mg PO DAILY 03/31/25 05/11/25 History amlodipine 2.5 mg tablet 2.5 mg PO QAM #90 tabs 04/06/25 05/11/25 Rx famotidine 40 mg tablet 40 mg PO HS 04/13/25 05/11/25 History levalbuterol HCl 0.63 mg/3 mL 0.63 mg (3 mL) inhalation Q6H PRN 04/13/25 05/11/25 Rx solution for nebulization shortness of breath or wheezing #360 mL oxycodone-acetaminophen 5 mg-325 1 - 2 tab PO DAILY PRN Pain 30 04/15/25 05/11/25 Rx mg tablet (Percocet) days #60 tabs clopidogrel 75 mg tablet 75 mg PO DAILY #30 tabs 04/29/25 05/11/25 Rx atenolol 50 mg tablet (Tenormin) 50 mg PO BID #180 tabs 05/04/25 05/11/25 Rx isosorbide mononitrate 30 mg 30 mg PO QAM #90 tabs 05/04/25 05/11/25 Rx tablet,extended release 24 hr losartan 100 mg tablet 100 mg PO QAM #90 tabs 05/04/25 05/11/25 Rx nortriptyline 25 mg capsule 50 mg (2 x 25 mg) PO HS #180 caps 05/04/25 05/11/25 Rx tamsulosin 0.4 mg capsule (Flomax) 0.4 mg PO QPM #90 caps 05/07/25 05/11/25 Rx sucralfate 1 gram tablet 1 g PO ACHS 05/11/25 05/11/25 History Past Med/Surg History Problem List (Updated 05/11/25 @ 16:58 by Anatoly Starks MD) Enteropathogenic Escherichia coli infection Abnormality of esophagus Recurrent pneumonia Stroke-like symptoms (Acute) Community acquired pneumonia Hyponatremia Mitral regurgitation Acquired blindness GERD (gastroesophageal reflux disease) BPH NOS w ur obs/LUTS Multifocal pneumonia (Acute) Exposure to COVID-19 virus (Acute) Hypertension Chronic venous insufficiency Edema Complex sleep apnea syndrome Hyperlipidemia (Chronic) Sleep apnea (Acute) Peripheral neuropathy (Acute) PAD (peripheral artery disease) (Acute) Neurogenic bladder (Acute) Gastroparesis (Acute) Essential hypertension (Acute) Depression (Acute) Chronic cough (Acute) Chronic constipation (Acute) CKD (chronic kidney disease) stage 2, GFR 60-89 ml/min (Acute) CAD (coronary atherosclerotic disease) (Acute) Anemia of chronic disease (Acute) Acquired solitary kidney (Acute) Hypothyroidism COPD (chronic obstructive pulmonary disease) (Chronic) Medical History Chronic hyponatremia Chronic headache Diabetes mellitus type 1, uncontrolled Dysphagia History of recent pneumonia 03/31/25 (admitted with pneumonia and TIA) per pt has had pneumonia 3x this year--questioning if pt has been having aspiration pneumonia--reason for scheduled EGD, has been having some coughing still, nick in am History of TIA (transient ischemic attack) 03/31/2025--no deficits--unknown cause, did have low sodium at the time and diagnosed with pneumonia as well--was just started on plavix afterwards-- follows with Dr. Espino with [facility] History of trigger finger release bilat hands CKD (chronic kidney disease) follows with Dr. Neves Neurogenic bladder Edema BLE's History of COVID-19 2022 Hypothyroidism Acquired solitary kidney pt has two kidneys, denies COPD (chronic obstructive pulmonary disease) Gastroparesis Chronic cough Depression History of pneumonia was inpatient [facility], DC'ed 01/15/25 Mitral regurgitation follows with Dr. Greenfield Acquired blindness of both eyes Hx of sepsis approx 2019 from failed root canal Hx of gastric ulcer Hx of angioedema no known cause Unstable angina stable at present History of stroke 2013 > slight cognitive issues since, helps with medical things LUZMA (obstructive sleep apnea) bipap GERD (gastroesophageal reflux disease) Family history of colon cancer DM type 1 (diabetes mellitus, type 1) History of angiography Premature ventricular beats History of subarachnoid hemorrhage 2013; memory/cognitive deficits (reports total of 3 strokes but only known event was in 2014 -- remaining strokes were incidental findings) CAD (coronary artery disease), [place] coronary artery PAD (peripheral artery disease) BPH (benign prostatic hyperplasia) Chronic diastolic CHF (congestive heart failure) pt unable to verify Migraine Microcytic anemia hx Hyperlipidemia Hypertension Ischemic colitis Over 10 years ago (before 2007) Asthma uses res inh few times per week per pt Surgical History Hx of surgical procedure I&D left submandibular and floor of the mouth History of carpal tunnel release right History of esophagogastroduodenoscopy (EGD) Difficult airway for intubation reports he was told he was a difficult intubation after rectal abscess surgery at [facility]. says he has been intubated since then without issues; denies problems prior to that procedure, as well. History of vasectomy History of tonsillectomy and adenoidectomy History of hand surgery Hand Incision Tendon Sheath of a Finger History of rectal abscess I&D History of transurethral resection of prostate History of appendectomy History of eye surgery multiple History of ventral hernia repair H/O colonoscopy recent 02/2025 @ [place] Family History Mother Hypertension Grandfather (Paternal) Colon cancer Prostate cancer Brother Brain cancer Diabetes Bone cancer Kidney disease Lung cancer Son Diabetes Lung cancer Father Hemorrhagic stroke Hypertension Diabetes Heart disease Other Breast cancer No family history of adverse response to anesthesia Testicular cancer Denies family history of Ovarian cancer Myocardial infarction Social History Smoking Status: Former smoker Tobacco Type: Cigarettes Age Started Using Tobacco: 16; Age Quit Using Tobacco: 49; packs per day: 1.5; Second Hand Exposure: No; Do You Dip or Chew Tobacco: No; Hx Alcohol Use: Yes Alcohol type: hard liquor Alcohol Intake Frequency: Monthly or Less Hx Substance Use: No Preferred Language: Portuguese Communication Ability: Effective Communication Ability Comment: pt is blind-- signs consents Communication Tools: Other Visual Impairment: No Limitations Hearing Ability: Hard of Hearing Child Nurse Required: No Beliefs That Will Affect Care: None marital status: Current Living Situation: Spouse current occupational status: disabled 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 Patient is blind no headache, no focal neurological losses other than baseline neuropathy no speech but has baseline swallowing issues no chest pain, pressure or palpitations no shortness of breath, cough or wheezes Left lower quadrant radiating to right lower quadrant abdominal pain, associated nausea and diarrhea no dysuria, hematuria or frequency no focal joint pain or swelling no back pain, CVA tenderness or radicular pain no bruising, bleeding or rashes no focal signs of weakness or numbness or altered sensation but does have typical neuropathy of diabetes no complaints of anxiety or depression.. Physical Exam Physical Exam: The patient appeared well nourished and normally developed. He is chronically ill and obviously blind there is no visible iris seen for pupil Vital signs as documented. Head exam is normocephalic atraumatic Neck is without JVD, thyromegaly, or carotid bruits. Lungs are clear to auscultation, no focal loss of breath sounds Cardiac exam, Rhythm is regular.. No murmurs, rubs or gallops. Abdominal exam reveals normal bowel sounds, distended and tympanitic soft or left-sided tenderness and right no rebound no guarding Extremities are nonedematous and both pedal pulses are present Neurologic exam is alert and oriented, no focal loss of strength peripheral neuropathy is noted Skin is without bruises or rashes Psychologically is without concerns for anxiety or depression.. Results & Data Results & Data Vital Signs (Past 12 Hours) Vital Signs Temp Pulse Resp BP Pulse Ox O2 Del Method 05/11/25 16:21 65 20 99 05/11/25 16:18 57 L 14 98 05/11/25 15:33 61 17 98 05/11/25 15:21 61 14 98 05/11/25 15:20 137/56 L 05/11/25 15:18 61 15 98 05/11/25 15:09 65 16 05/11/25 14:51 59 L 15 97 05/11/25 14:45 58 L 14 98 05/11/25 14:34 58 L 05/11/25 14:30 54 L 100 05/11/25 14:21 54 L 15 100 05/11/25 14:18 140/84 05/11/25 14:18 140/84 05/11/25 13:34 96.6 F L 57 L 20 145/71 H 100 Room Air Laboratory Results Reviewed CBC no significant leukocytosis reviewed chemistry showing hyponatremia low serum osmolality Stool study showing EPEC Urine is not collected at time of this dictation Code Status & VTE Plan VTE Prophylaxis Plan VTE Prophylaxis will be ordered: Yes PG Care Time/CCT Total # of Minutes Spent Total Time Spent with Patient: Total time spent is greater than 50% in coordination of care (as documented) at patient's floor/unit and/or counseling patient: Coding Level of Care Code 77849 INT INP/OBS CARE 3/75MIN Diagnoses Enteropathogenic Escherichia coli infection A04.0 Hyponatremia E87.1 Uncontrolled type 1 diabetes mellitus with hyperglycemia E10.65 CAD (coronary atherosclerotic disease) I25.10 Complex sleep apnea syndrome G47.31
[2025-05-11] MEDS ORDERED: MoRPHine SULFATE 4 MG/ML 1 ML CARP\\VIAL IV PRN (17:57)
[2025-05-11] MEDS ORDERED: CARBOHYDRATES FOR HYPOGLYCEMIA PO PRN (17:57)
[2025-05-11] MEDS ORDERED: DEXTROSE 50% 50 ML SYRINGE IV PRN (17:57)
[2025-05-11] MEDS ORDERED: PROMETHAZINE HCL 25 MG TAB PO PRN (17:57)
[2025-05-11] MEDS ORDERED: PROMETHAZINE 12.5 MG/50.5 ML BAG IV PRN (17:57)
[2025-05-11] MEDS ORDERED: GLUCAGON FOR INJ 1 MG VIAL SQ PRN (17:57)
[2025-05-11] MEDS ORDERED: MoRPHine SULFATE 2 MG/ML CARP IV PRN (17:57)
[2025-05-11] MEDS ORDERED: GLUCOSE 10 TAB/TUBE PO PRN (17:57)
[2025-05-11] MEDS ORDERED: GLUCOSE 40% GEL 15 GM TUBE PO PRN (17:57)
[2025-05-11] MEDS ORDERED: ONDANSETRON INJ 2 MG/ML 2 ML VIAL IV PRN (17:57)
[2025-05-11] MEDS: DEXTROSE 50% 50 ML SYRINGE IV STA (18:04)
[2025-05-11] MEDS: INSULIN ASPART PER UNIT CHARGE SC SCH (18:15)
[2025-05-11] MEDS: ENOXAPARIN INJ 40 MG/0.4 ML SYR SQ SCH (19:53)
[2025-05-11] MEDS: METOCLOPRAMIDE HCL 10 MG TABLET PO SCH (19:54)
[2025-05-11] MEDS: CIPROFLOXACIN / D5W 400 MG/200 ML BAG IV STA (19:54)
[2025-05-11] MEDS: ATENOLOL 50 MG TABLET PO SCH (20:01)
[2025-05-11] MEDS: FAMOTIDINE 40 MG TABLET PO SCH (20:02)
[2025-05-11 20:47] LABS: Appearance Urine Clear (Clear); Glucose Urine UA Negative (Negative)
[2025-05-11] MEDS: FOLIC ACID 1 MG TAB PO SCH (20:50)
[2025-05-11] MEDS: TAMSULOSIN HCL 0.4 MG CAP PO SCH (20:50)
[2025-05-11] MEDS: NORTRIPTYLINE HCL 25 MG CAP PO SCH (20:50)
[2025-05-11] MEDS: SODIUM CHLORIDE 1 GM TABLET PO SCH (20:50)
[2025-05-11] MEDS: LANTUS PER UNIT CHARGE SQ SCH (20:55)
[2025-05-11] MEDS ORDERED: CIPROFLOXACIN 500 MG TAB PO SCH (21:00)
[2025-05-11] MEDS ORDERED: LANTUS PER UNIT CHARGE SQ SCH (21:00)
[2025-05-11 21:12] LABS: Cdiff Toxin B Gene (2yr or >) Negative Cdiff Gene (Neg)
[2025-05-11 22:06] LABS: Anion Gap 6.0 (3-11); Blood Urea Nitrogen 14.0 mg/dl (6-23); Calcium 8.7 mg/dl (8.6-10.3); Carbon Dioxide 25.0 mmol/L (21-32); Chloride 95.0 mmol/L (98-107); Creatinine Clr Calc Pharmacy 78.5 ml/min; Glucose 306.0 mg/dl (70-99(Fasting)); Potassium 5.2 mmol/L (3.5-5.1); Sodium 126.0 mmol/L (136-145)
[2025-05-12] MEDS: CHERRY SYRUP 5 ML UDP PO SCH (00:23)
[2025-05-12] MEDS: VANCOMYCIN HCL 125 MG/2.5ML SOLN PO SCH (00:23)
[2025-05-12 05:36] LABS: Hematocrit (blood only) 31.3 % (42.0-52.0); Hemoglobin 10.8 g/dl (14.0-18.0); Mean Corpuscular Hemoglobin 31.1 pg (25.0-34.0); Mean Corpuscular Volume 90.2 fL (80.0-100.0); Platelet Count 243 K/uL (130-400); RDW Standard Deviation 42.5 fL (36.4-46.3); Red Blood Count 3.47 M/uL (4.70-6.10); White Blood Count 9.07 K/ul (4.8-10.8)
[2025-05-12 05:52] LABS: Anion Gap 6.0 (3-11); Blood Urea Nitrogen 13.0 mg/dl (6-23); Calcium 8.6 mg/dl (8.6-10.3); Carbon Dioxide 23.0 mmol/L (21-32); Chloride 98.0 mmol/L (98-107); Creatinine Clr Calc Pharmacy 82.2 ml/min; Glucose 166.0 mg/dl (70-99(Fasting)); Magnesium 2.4 mg/dl (1.7-2.4); Potassium 4.7 mmol/L (3.5-5.1); Sodium 127.0 mmol/L (136-145)
[2025-05-12] MEDS: LEVOTHYROXINE SODIUM 175 MCG TABLET PO SCH (06:00)
--- NOTE | 2025-05-12 07:13 | Hospitalist Progress Note ---
Date of Service May 12, 2025 Assessment & Plan (1) Enteropathogenic Escherichia coli infection: (2) Hyponatremia: (3) Diabetes mellitus type 1, uncontrolled: (4) CAD (coronary atherosclerotic disease): (5) Complex sleep apnea syndrome: Plan #Enteropathogenic Escherichia coli infection: - Abdominal pain can be related to his low blood sugar levels - Started on Ciprofloxaxin 500mg PO twice daily on 05/11, treated patient as he was hospitalized and immunosuppressed with history of T1DM - Need to continue to evaluate volume status - Abdominal pain improved but persistent on R side, will need to continuously evaluate if abdominal pain is improving or worsening, may warrant a CT abdomen in future if symptoms worsen #Hyponatremia - Patient had Na level of 126 in ED on 05/11, most recent Na is 127 on 05/12 - Patient takes 6g salt tablets daily (2 in AM, 1 at lunch, 1 at dinner, 2 before bed) - Given 2 gram PO sodium chloride in the ED, and now on fluid restriction (1800 mL) - Repeat BMPs to evaluate for change in sodium levels - Continue to hold Bumex - If patient is appropriately fluid restricted with changes noted in sodium levels, then consider starting 3% hypertonic saline bolus #T1DM uncontrolled - Patient on 38 U twice daily of Tresiba at home, having hypoglycemic episodes at home - Change regimen to 30 U twice daily of Glargine, carb ratio 4, correction factor 20 - Diet advance as tolerated, currently on Carb Count/DM1 Diet #Coronary atherosclerotic disease - Continue home medications as indicated, d/c amlodipine during admission due to low dose and low clinical efficacy - Bumex 1mg twice daily, held currently, will restart morning of the #Complex Sleep Apnea syndrome - maintained on home BiPAP therapy Diet: Carb Count/DM1 Code: Full VTE Prophylaxis: Lovenox Dispo: admit Admission and Anticipated Discharge Date Admission Date: May 11, 2025 Supervising Physician Co-Signing Physician Notes Resident Physician Supervision Note: I personally examined the patient and verified all rajan points of history and exam, discussed case, and agree with decision making with Dr. Garcia I discussed the case with the resident and agree with the findings and plan as documented in the note. This patient continues to have abdominal pain now mostly focused on the right si de. He only had 2 bowel movements overnight. His sodium remains low. Patient was updated in front of his . Abdominal exam shows more active bowel sounds but normal sounding. No guarding or rebound tenderness focal discomfort in the right lower quadrant in the presence of her previous hernia repair Reviewed CBC reviewed chemistry reviewed A1c reviewed C. difficile test negative Continue to treat supportively his EPEC continue ciprofloxacin Fluid restriction for hyponatremia Continue to improve glucose control while advancing diet Documented By: Anatoly Starks MD Subjective Mr. Larson is a 64 y.o. M with past medical history of Type 1 DM, chronic hyponatremia, gastroparesis, TIA 03/2025, legal blindness, CAD, sleep apnea who was admitted to hospital due to hyponatremia. Today, patient states his lower abdominal pain has improved, however has not resolved. Patient also states he has been having diarrhea with his last diarrheal episode yesterday. Patient states he has bilateral headache but this is baseline for him after his stroke in 2013. Denies nausea today after having his breakfast. He normally takes 2 salt tabs in the morning, 1 at lunch, 1 at dinner, and 2 in the evening as per geography department chair recommendations. Denies SOB, chest pain, dizziness. No other acute concerns. Review of Systems Constitutional: as per Subjective / HPI Physical Exam Constitutional: WD/WN, vitals as above Respiratory: normal respiratory effort, lungs clear to auscultation Cardiovascular: RRR, no murmur, no edema Gastrointestinal (Abdomen): Percussion/Palpation: + abdomen tender (RLQ and LLQ, worse in RLQ) distended abdomen Skin: no rashes, warm and dry Psychiatric: A+Ox3, euthymic affect Results & Data Results & Data Vital Signs (Past 12 Hours) Vital Signs Temp Pulse Pulse Resp BP Pulse Ox O2 Del Method 05/12/25 03:20 22 05/11/25 22:10 58 L 18 100 05/11/25 21:17 36.6 C 65 18 187/70 H 100 Room Air 05/11/25 20:00 62 18 160/75 H 100 Room Air FiO2 05/12/25 03:20 21 05/11/25 22:10 21 05/11/25 21:17 05/11/25 20:00 Resident Activity Tracking Resident Involvement: Resident Care Provided Care Provided: Adult Hospital Medicine
[2025-05-12 07:51] LABS: Hemoglobin A1C 8.2 % (4.5-5.6)
[2025-05-12] MEDS: CIPROFLOXACIN 500 MG TAB PO SCH (08:37)
[2025-05-12] MEDS: ADVANCED PROBIOTIC 625 MG CAPSULE PO SCH (08:38)
[2025-05-12] MEDS: ISOSORBIDE MONO EXTENDED REL 30 MG TABCR PO SCH (08:38)
[2025-05-12] MEDS: MAGNESIUM OXIDE 400 MG TAB PO SCH (08:38)
[2025-05-12] MEDS: BUMETANIDE 1 MG TAB PO SCH (08:39)
[2025-05-12] MEDS: ASPIRIN 81 MG ECTAB PO SCH (08:39)
[2025-05-12] MEDS: LOSARTAN POTASSIUM 50 MG TAB PO SCH (08:39)
[2025-05-12] MEDS: CLOPIDOGREL BISULFATE 75 MG TAB PO SCH (08:39)
[2025-05-12] MEDS: FEXOFENADINE HCL 180 MG TAB PO SCH (08:39)
[2025-05-12] MEDS: FLUTICASONE FUROATE 100MCG 14 PUFFS/INHALER INH SCH (08:40)
[2025-05-12] MEDS: UMECLIDINIUM/VILANTEROL 62.5/25MCG 7 PUFFS/INHALER INH SCH (08:41)
[2025-05-12] MEDS: FAMOTIDINE 20 MG TAB PO SCH (08:50)
[2025-05-12] MEDS ORDERED: NON-FORMULARY MEDICATION (Fluticasone-Umeclidin-Vilanter [Trelegy Ellipta] 100-62.5-25 mcg INH SCH (09:00)
[2025-05-12] MEDS: SODIUM CHLORIDE 1 GM TABLET PO SCH (12:10)
--- NOTE | 2025-05-12 18:11 | Billing Data ---
Date of Service May 12, 2025 Coding Level of Care Code 16625 SUB INP/OBS CARE MIN
[2025-05-12] MEDS: ATORVASTATIN 40 MG TAB PO SCH (22:39)
--- NOTE | 2025-05-13 07:40 | Hospitalist Progress Note ---
Date of Service May 13, 2025 Assessment & Plan (1) Enteropathogenic Escherichia coli infection: (2) Hyponatremia: (3) Diabetes mellitus type 1, uncontrolled: (4) CAD (coronary atherosclerotic disease): (5) Complex sleep apnea syndrome: Plan #Enteropathogenic Escherichia coli infection: - Abdominal pain can be related to his low blood sugar levels - Started on Ciprofloxaxin 500mg PO twice daily on 05/11, treated patient as he was hospitalized and immunosuppressed with history of T1DM - Need to continue to evaluate volume status - Abdominal pain improved but persistent on R side, will need to continuously evaluate if abdominal pain is improving or worsening, may warrant a CT abdomen in future if symptoms worsen #Hyponatremia - Patient had Na level of 126 in ED on 05/11, most recent Na is 127 on 05/12 - Patient takes 6g salt tablets daily (2 in AM, 1 at lunch, 1 at dinner, 2 before bed) - Given 2 gram PO sodium chloride in the ED, and now on fluid restriction (1800 mL) - Repeat BMPs to evaluate for change in sodium levels - Continue to hold Bumex - If patient is appropriately fluid restricted with changes noted in sodium levels, then consider starting 3% hypertonic saline bolus #T1DM uncontrolled - Patient on 38 U twice daily of Tresiba at home, having hypoglycemic episodes at home - Change regimen to 30 U twice daily of Glargine, carb ratio 4, correction factor 20 - Diet advance as tolerated, currently on Carb Count/DM1 Diet #Coronary atherosclerotic disease - Continue home medications as indicated, d/c amlodipine during admission due to low dose and low clinical efficacy - Bumex 1mg twice daily, held currently, will restart morning of the #Complex Sleep Apnea syndrome - maintained on home BiPAP therapy Diet: Carb Count/DM1 Code: Full VTE Prophylaxis: Lovenox Dispo: admit Admission and Anticipated Discharge Date Admission Date: May 11, 2025 Results & Data Results & Data Vital Signs (Past 12 Hours) Vital Signs Temp Pulse Pulse Resp BP Pulse Ox O2 Del Method 05/13/25 07:16 36.6 C 62 12 124/70 95 Room Air 05/12/25 22:38 60 164/72 H 05/12/25 22:30 Room Air 05/12/25 19:55 36.6 C 65 16 134/71 98 Room Air Resident Activity Tracking Resident Involvement: Resident Care Provided Care Provided: Adult [place] [facility]
[2025-05-13] MEDS ORDERED: ACETAMINOPHEN 325 MG TAB PO PRN (07:45)
[2025-05-13 08:22] LABS: Anion Gap 6 (3-11); Blood Urea Nitrogen 18 mg/dl (6-23); Calcium 8.5 mg/dl (8.6-10.3); Carbon Dioxide 26 mmol/L (21-32); Chloride 100 mmol/L (98-107); Creatinine Clr Calc Pharmacy 71.4 ml/min; Glucose 211 mg/dl (70-99(Fasting)); Magnesium 2.2 mg/dl (1.7-2.4); Sodium 132 mmol/L (136-145)
--- NOTE | 2025-05-13 11:16 | Discharge Summary ---
Date of Service May 13, 2025 Admission HPI Per Admitting Provider 64-year-old male who is longstanding insulin requiring diabetes type 1 with multiple endorgan issues including gastroparesis neurogenic bladder neuropathy renal disease cardiovascular disease who presents after having episodes of abdominal pain diarrhea rigors chills and hypoglycemia at home. He is found to have enteropathogenic E. coli infectious diarrhea in the emergency department and has worsening of his typical longstanding hyponatremia. Patient feels weak and tired complains of abdominal distention and has had increased loose diarrhea which is outside of his typical constipation diarrhea pattern. Patient states of late he typically is having a distended abdomen but has not had the type of pain he is having today. On CT imaging it does show left-sided colitis but no right-sided changes. Pain admitted to the facility for hyponatremia enteropathogenic E. coli colitis. Admission Exam Per Admitting Provider The patient appeared well nourished and normally developed. He is chronically ill and obviously blind there is no visible iris seen for pupil Vital signs as documented. Head exam is normocephalic atraumatic Neck is without JVD, thyromegaly, or carotid bruits. Lungs are clear to auscultation, no focal loss of breath sounds Cardiac exam, Rhythm is regular.. No murmurs, rubs or gallops. Abdominal exam reveals normal bowel sounds, distended and tympanitic soft or left-sided tenderness and right no rebound no guarding Extremities are nonedematous and both pedal pulses are present Neurologic exam is alert and oriented, no focal loss of strength peripheral neuropathy is noted Skin is without bruises or rashes Psychologically is without concerns for anxiety or depression.. Principal Diagnosis Hyponatremia Discharge Exam Constitutional WD/WN, vitals as above Respiratory normal respiratory effort, lungs clear to auscultation Cardiovascular RRR, no murmur, no edema Gastrointestinal (Abdomen) Inspection/Auscultation: normal bowel sounds Percussion/Palpation: + abdomen tender (mild tenderness in LLQ and RLQ) Skin no rashes, warm and dry Psychiatric A+Ox3, euthymic affect Discharge Data Allergies Allergy/AdvReac Type Severity Reaction Status Date / Time lisinopril Allergy Severe " TONGUE Verified 05/11/25 16:11 SWELLS"--ANGIOEDEMA lorazepam AdvReac Intermediate Hallucinati Verified 05/11/25 16:11 ons Consultations 05/11/25 15:49 ED Decision to Admit Stat Ordered Studies 05/11/25 14:27 CT angio abdomen pelvis w con Stat CT head/brain wo con Stat Hospital Course (1) Enteropathogenic Escherichia coli infection: (2) Hyponatremia: (3) Diabetes mellitus type 1, uncontrolled: (4) CAD (coronary atherosclerotic disease): (5) Complex sleep apnea syndrome: Plan #Enteropathogenic Escherichia coli infection: - Abdominal pain can be related to his low blood sugar levels - Started on Ciprofloxaxin 500mg PO twice daily on 05/11, treated patient as he was hospitalized and immunosuppressed with history of T1DM - Need to continue to evaluate volume status - Abdominal pain and diarrhea improved, recommend to continue Ciprofloxacin 500mg BID for 3 days, hold atorvastatin during antibiotic course and resume atorvastatin 05/16 #Hyponatremia - Patient had Na level of 126 in ED on 05/11, 127 on 05/12, 132 on 05/13 - Patient takes 6g salt tablets daily (2 in AM, 1 at lunch, 1 at dinner, 2 before bed) - Given 2 gram PO sodium chloride in the ED, and now on fluid restriction (1800 mL) - Repeated BMPs in AM to evaluate for change in sodium levels - Bumex 1mg twice daily held during admission, restarted morning of the - In light of recent achalasia diagnosis and continued low serum sodium levels, nephrology states he can increase salt tablet to 2 gram tablet 4x daily if possible #T1DM uncontrolled - Patient was on 38 U twice daily of Tresiba at home, having hypoglycemic episodes at home - Recommended changing home regimen to 30 U twice daily of Glargine, carb ratio 4, correction factor 20, due to recent hypoglycemia episodes, as tolerated - 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 PCP to make any changes - Diet Carb Count/DM1 Diet #Coronary atherosclerotic disease - Continue home medications as indicated - Discontinued amlodipine during admission due to low dose and low clinical efficacy, can restart this medication outpatient - Bumex 1mg twice daily, held during admission, restarted morning of the #Complex Sleep Apnea syndrome - maintained on home BiPAP therapy Diet: Carb Count/DM1 Code: Full VTE Prophylaxis: Lovenox Dispo: discharge Total Time Total Time Spent Total Time Spent (In Minutes): As per attending attestation Discharge Plan Discharge Items Patient Disposition: Home - Self-Care Reason For Visit: HYPONATREMIA, EPEC INFECTION Discharge Diagnosis: Hyponatremia Condition on Discharge: Fair Activity: Resume your previous activity Non-emergency contact: Primary Care Provider and Children'S Service Supervisor Call non-emergency contact if: you have any medication questions, your symptoms worsen, your pain is worsening, your pain is concerning for you and you have a fever Follow-up/Referrals: Josh Squires III, CRNP [Primary Care Provider] - 05/20/25 11:20 am (APPT WITH DR LAURA) Diet: Carb Count or DM1 Addtl Attending Provider Instructions: You were admitted to the hospital for colitis, an E. coli gastroenteritis infection. You were treated with your ciprofloxacin, an antibiotic, and your home meds. A discharge summary will be sent to your primary care physician to ensure continuity of care. Please bring this discharge summary with you to your next office appointment so that your provider can review it at that time. 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 It is important that you follow up with them. We have requested a follow-up appointment with your primary care physician within one week of discharge. Please call their office if you do not hear from them. Keep all your follow-up appointments as already scheduled. If you cannot make an appointment, notify your provider. Medications: Your medication list has been reviewed and reconciled upon discharge to ensure accuracy and continuity of care. An updated list of all your medications is included with your hospital discharge paperwork. Please review this list closely, and make note of any changes. We sent a new medication called ciprofloxacin to your pharmacy. Take ciprofloxacin, 500 mg, one tablet, twice a day, for 3 more days. Consult with Nephrology about possibly changing your current regimen for managing your hyponatremia, in light of continued low serum sodium levels and y our diagnosis of achalasia. You could get their input whether relaxing the fluid restriction from 1800 mL to 2000 mL could be considered while increasing your salt tablet intake from 6 g to 7g daily. Take your medications as instructed; do not skip a dose of your medicines. Make sure all of your doctors know every medicine you are taking (including mgkx-pui-xyacvuf medicines, vitamins, and supplements). Call your primary care provider before taking any new medicines (including epur-dmf-fotubml medicines, vitamins, and supplements), because some of these may interact with your current medications, or may make your symptoms worse. Tell your primary care provider if you cannot afford your medications. CONTACT YOUR PRIMARY CARE PROVIDER if you experience any of the following: dizziness, feeling like you might pass out abdominal pain, N/V, diarrhea, difficulty swallowing Difficulty following your treatment plan, or difficulty taking medications CALL 911 OR GO TO THE EMERGENCY DEPARTMENT if you experience any of the following: Sudden, severe abdominal pain or nausea/vomiting Severe chest pain, or chest pain that radiates (moves) to your jaw or arm Sudden, severe shortness of breath or difficulty breathing Thank you for allowing us to participate in your care Pending Studies at Discharge: No Stand-Alone Forms: My [facility] [employer], Smoking Cessation Medications and DC Order Prescriptions: New ciprofloxacin HCl [Cipro] 500 mg tablet 500 mg PO BID 3 Days Qty: 6 0RF Rx Instructions: Please hold your atorvastatin medication (cholesterol medication) while taking this antibiotic, you can resume taking your atorvastatin on 05/16/25 Continued levothyroxine 175 mcg tablet 175 mcg PO QAM Qty: 90 3RF folic acid 1 mg tablet 1 mg PO BID Qty: 180 3RF pantoprazole [Protonix] 40 mg tablet,delayed release (DR/EC) 40 mg PO BID Qty: 180 3RF metoclopramide HCl [Reglan] 10 mg tablet 10 mg PO QID Qty: 120 5RF bumetanide 1 mg tablet 1 mg PO BID Qty: 180 3RF albuterol sulfate 90 mcg/actuation HFA aerosol inhaler 2 puff inhalation Q4H PRN (Reason: Shortness Of Breath) Qty: 8.5 3RF ondansetron HCl 8 mg tablet 8 mg PO TID PRN (Reason: nausea and vomiting) Qty: 30 1RF hydrocodone-homatropine 5-1.5 mg tablet 1 tab PO BID PRN (Reason: cough) Qty: 60 0RF amlodipine 2.5 mg tablet 2.5 mg PO QAM Qty: 90 3RF levalbuterol HCl 0.63 mg/3 mL solution for nebulization 0.63 mg inhalation Q6H PRN (Reason: shortness of breath or wheezing) Qty: 360 5RF clopidogrel 75 mg tablet 75 mg PO DAILY Qty: 30 0RF losartan 100 mg tablet 100 mg PO QAM Qty: 90 3RF isosorbide mononitrate 30 mg tablet extended release 24 hr 30 mg PO QAM Qty: 90 3RF Rx Instructions: take 1 tablet by mouth every morning nortriptyline 25 mg capsule 50 mg PO HS Qty: 180 3RF Rx Instructions: take 2 capsules by mouth at bedtime atenolol [Tenormin] 50 mg tablet 50 mg PO BID Qty: 180 3RF tamsulosin [Flomax] 0.4 mg capsule 0.4 mg PO QPM Qty: 90 3RF oxycodone-acetaminophen [Percocet] 5-325 mg tablet 1 - 2 tab PO DAILY PRN (Reason: Pain) 30 Days Qty: 60 0RF (DME) BiPap Machine Misc .Route Qty: 1 0RF Rx Instructions: BiPAP 05/06, heated humidification, compliance download capabilities. Current machine greater than 5 years old and unable to provide compliance data: [facility] TrueView aspirin 81 mg tablet,delayed release (DR/EC) 81 mg PO QAM ferrous sulfate 325 mg (65 mg iron) tablet 325 mg PO BID Excedrin Migraine 250-250-65 mg tablet 1 tab PO Q6H PRN (Reason: Migraine Headache) Trelegy Ellipta 100-62.5-25 mcg blister with device 1 inh INHALATION QAM 90 Days Qty: 90 3RF montelukast 10 mg tablet 10 mg PO HS glucosamine sulfate [Glucosamine] 500 mg Tablet 500 mg PO QDL Probiotic 3 billion cell Capsule 3,000 mmu cells PO QAM fexofenadine [[place] Allergy] 180 mg Tablet 180 mg PO QAM famotidine 20 mg Tablet 20 mg PO BID Rx Instructions: TAKES WITH BREAKFAST AND LUNCH insulin aspart U-100 [Novolog FlexPen U-100 Insulin] 100 unit/mL (3 mL) insulin pen 0 sliding scale dose SUBCUT UD Rx Instructions: 1-4 CARBS IS 1 UNIT subcut daily; SLIDING SCALE; FOR EVERY 20 CARBS, ADD ANOTHER 1 UNIT OF INSULIN 2 EXTRA 2 UNITS FOR 150-170 CARBS AND IF OVER 150, ADD 2 UNITS FOR EVERY 20 POINTS OVER FOR HIS BLOOD SUGAR promethazine 25 mg tablet 25 mg PO Q6H PRN (Reason: n/v) Rx Instructions: take 1 tablet by mouth every 6 hours if needed for nausea and vomiting dutasteride 0.5 mg capsule 0.5 mg PO QAM famotidine 40 mg tablet 40 mg PO HS Rx Instructions: TAKE 1 TABLET BY MOUTH EVERYDAY AT BEDTIME sennosides [senna] 8.6 mg Tablet 8.6 mg PO BID acetaminophen [Tylenol] 325 mg Tablet 325 mg PO Q6H PRN (Reason: PAIN/FEVER) sodium chloride 1,000 mg Tablet,Soluble 1,000 - 2,000 mg PO QID Rx Instructions: 2000mg in am/1000mg at lunch/1000mg at dinner/2000mg at hs magnesium oxide 400 mg magnesium Tablet 400 mg PO DAILY sucralfate 1 gram tablet 1 g PO ACHS Rx Instructions: TAKE 1 TABLET BY MOUTH BEFORE MEALS AND AT BEDTIME Changed insulin degludec [Tresiba FlexTouch U-100] 100 unit/mL (3 mL) insulin pen 30 unit subcut BID Qty: 0 0RF Held atorvastatin 80 mg tablet 80 mg PO HS Qty: 90 3RF Hold Instructions: Resume on 05/16/25. hold atorvastatin medication until ciprofloxacin antibiotic course is completed Discharge Orders: Discharge Order (Routine); Ordered 05/13/25 Ordered By: Jasen Galdamez/Other Patient Handouts: Understanding Deep Vein Thrombosis Admission Data Admit Date/Time: 05/11/25 16:45 Attending Provider: Anatoly Starks Admit Provider: Anatoly Starks Primary Care Provider: Josh Squires III Other Providers: Timothy Milton Other Interventions: Discharge Summary Assessment (RN) Last Done: 05/13/25 13:59 Supervising Physician Co-Signing Physician Notes Resident Physician Supervision Note: I personally examined the patient and verified all rajan points of history and exam, discussed case, and agree with decision making with Dr. Garcia I discussed the case with the resident and agree with the findings and plan as documented in the note. This patient continues to have abdominal pain now mostly focused on the right side. He only had 2 bowel movements overnight. His sodium remains low. Patient was updated in front of his . Abdominal exam shows more active bowel sounds but normal sounding. No guarding or rebound tenderness focal discomfort in the right lower quadrant in the pres ence of her previous hernia repair reviewed A1c 8.4 insulin amended reviewed C. difficile test negative Continue to treat EPEC continue ciprofloxacin post discharge contineu po salt tabs for hyponatremia encourage close outpatient follow up after discharge Documented By: Anatoly Starks MD Resident Activity Tracking Resident Involvement: Resident Care Provided Care Provided: Adult [facility] Medicine
[2025-05-13 12:31] VITALS: PULSE 63
[2025-05-13 14:29] VITALS: BP 131/64; RESP 16; TEMP 97.9; O2SAT 97
--- NOTE | 2025-05-13 16:49 | Billing Data ---
Date of Service May 13, 2025 Coding Level of Care Code 84445 IN/OBS DISCH 30 MIN/LESS
== END 2025-05-13 14:38 | disposition home or self-care (01) | DRG 372 ==
LOC: SUATTDRO → ED 13:28 → EDINP 16:45 → 3W 17:58

== ENCOUNTER 2025-06-23 02:56 | Inpatient (IN) ==
[2025-06-23] MEDS: FAMOTIDINE 20MG IV PUSH 20 MG/5 ML SYR IV STA (03:15)
[2025-06-23] MEDS: ALBUT/IPRATROP 3MG/0.5MG NEB 3 ML VIAL NEB STA (03:16)
[2025-06-23] MEDS: ALBUT/IPRATROP 3MG/0.5MG NEB 3 ML VIAL ONE (03:18)
[2025-06-23] MEDS: EPINEPHrine INJ 1 MG/ML AMP ONE (03:18)
[2025-06-23] MEDS: SODIUM CHLORIDE 0.9% 250 ML IV ONE ×2 (03:19→04:46)
--- NOTE | 2025-06-23 03:29 | Emergency Department Note ---
Impression & Plan Anaphylaxis, Acute hyperkalemia, Sepsis, Bilateral pneumonia admit to the ICU ED Provider Note NAME: ANISHA RICE AGE: 64 SEX: Male INFORMANT: Patient And EMS ED PROVIDER(S): Yenifer Auguste DO CHIEF COMPLAINT: shortness of breath and allergic reaction PLAN: Disposition: Admit to the ICU MEDICAL DECISION MAKING: This is a 64-year-old male who presents to the emergency department having a sudden severe allergic reaction. Symptoms started around 9 PM this evening when he began to feel short of breath and noticed swelling to his face with an associated rash. The patient had some upper respiratory symptoms including cough earlier today he did take a dose of Tussin which contains codeine just prior to this reaction. Patient's went on to explain that he had been ill throughout the whole day with a fever and productive cough. He does have a history of aspiration pneumonia. Care/management discussed with: critical care medicine team and [facility] Hospitalist along with the ED psychiatric catalytic case operator. Triage Nursing notes: reviewed and agree With them. Vital Signs: reviewed and remarkable for tachycardia Additional History obtained from: EMS Chronic Medical/Social Conditions affecting care: diabetes, gastroparesis, recurrent aspiration pneumonia Prior/ Outside/ External records reviewed: I did review inpatient records from April of this year Differential Diagnosis: allergic reaction, medication side effects, anaphylaxis Diagnostics, independently interpreted by me: ECG: normal sinus rhythm at a rate of 100. There is no ST segment elevation or signs of ischemia. There is no ectopy. Cardiac Monitoring: Sinus tachycardia at 106. Imaging studies: Portable chest x-ray: bilateral lower lobe opacities as per my independent interpretation. HPI: 64 year old Male arrives for evaluation of Shortness of breath and allergic reaction. Symptoms started around 9 PM this evening when he began to feel short of breath and noticed swelling to his face with an associated rash. The patient had some upper respiratory symptoms including cough earlier today he did take a dose of Tussin which contains codeine just prior to this reaction PAST MEDICAL HISTORY: See Below, PAST SURGICAL HISTORY: See Below, SOCIAL HISTORY: See Below, HOME MEDICATIONS: see list ALLERGIES: see list VITALS: See Below PHYSICAL EXAMINATION: HEENT: Head - normocephalic and atraumatic. Pupils are equal, round, and reactive to light. Extraocular eye muscles are intact, and sclera are anicteric. Nose - moist nasal mucosa without discharge. Mouth - moist buccal mucosa. Oropharynx is nonerythematous and there is no tonsillar exudate or edema noted. Patient has significant swelling to his lips and ears. There is no uvular edema or edema noted to the tongue. Neck: Supple; no JVD Or cervical lymphadenopathy Heart: Tachycardic rate and regular rhythm. There is a normal S1 and S2 with no murmurs, clicks, or gallops appreciated. Lungs: minimal wheezing at both lung bases. Abdomen: Soft, Protuberant, completely nontender, nondistended, with good bowel sounds. There are no palpable pulsatile masses or hepatosplenomegaly. There is no guarding, rigidity, or rebound noted. Extremities: No evidence of cyanosis, clubbing, or edema. There are easily palpable peripheral pulses. Skin: warm and dry with diffuse urticaria emergency department treatment: secured entrance monitor, supplemental oxygen, IV Pepcid, IV normal saline bolus, DuoNeb, push dose epi, IV Unasyn, IV dextrose, IV insulin, IV calcium Emergency department course: The patient was evaluated emergently in room B-4. A second IV lock was initiated and labs were drawn as above. Twelve-lead EKG was obtained. Order was placed for continuous cardiac monitoring. The patient was in a sinus tachycardia at a rate of 106. A DuoNeb was initiated. The patient was given a dose of IV Pepcid. He was bolused with 250 cc of saline. His blood pressure and heart rate were monitored closely. Emergency Department course: Patient was evaluated emergently in B-4. second large-bore IV lock was initiated. The patient was kept on supplemental oxygen to support O2 saturation. Patient had received 500 of saline in the field and was bolused with an additional 500 initially. Patient's presented to the emergency department and explained that the patient had been not feeling well throughout the whole day with a high fever and productive cough of thick brown sputum. She also explains that he has a history of chronic aspiration pneumonia. Protocol was performed. Portable chest x-ray shows evidence of bilateral lower lobe opacities. The patient was prophylaxed with IV Unasyn. Patient had received IM epinephrine, IV Solu-Medrol, and IV Benadryl in the field and on presentation stated that his breathing had improved significantly. On physical exam, the patient had wheezing in the base of his lungs. He was given a DuoNeb treatment and a dose of IV Pepcid. Patient had an episode of hypotension with systolic blood pressure in the low 90s. He was given a dose of push dose epi-1-100,000. This gave improvement to his blood pressure and heart rate. Laboratory studies revealed a potassium of 6.9. There were no associated EKG changes. We did repeat a blood drawl for i-STAT which showed Potassium at 5.9. Patient was bolused with IV D10 and IV insulin. He was also given a dose of calcium chloride. Patient remained hemodynamically stable from that point. I discussed the case with the critical care medicine team as well as the [facility] Hospitalist and they will care for the patient. I have personally spent greater than 120 minutes of critical care time in the direct management of this patient. This includes bedside care, interpretation of diagnostic studies, and testing, discussion with consultants, patient, and family members, and other required patient management activities. This 120 minutes is in excess of all separately billable procedures. Past Med/Surg History Problem List (Updated 06/23/25 @ 06:21 by Yenifer Auguste DO) Bilateral pneumonia (Acute) Sepsis (Acute) Acute hyperkalemia (Acute) Anaphylaxis (Acute) Shock Anaphylactoid reaction Chronic daily headache Diabetes mellitus type 1, uncontrolled Enteropathogenic Escherichia coli infection Abnormality of esophagus Recurrent pneumonia Stroke-like symptoms (Acute) Community acquired pneumonia Hyponatremia (Acute) Mitral regurgitation Acquired blindness GERD (gastroesophageal reflux disease) BPH NOS w ur obs/LUTS Multifocal pneumonia (Acute) Exposure to COVID-19 virus (Acute) Hypertension Chronic venous insufficiency Edema Complex sleep apnea syndrome Hyperlipidemia (Chronic) Sleep apnea (Acute) Peripheral neuropathy (Acute) PAD (peripheral artery disease) (Acute) Neurogenic bladder (Acute) Gastroparesis (Acute) Essential hypertension (Acute) Depression (Acute) Chronic cough (Acute) Chronic constipation (Acute) CKD (chronic kidney disease) stage 2, GFR 60-89 ml/min (Acute) CAD (coronary atherosclerotic disease) (Acute) Anemia of chronic disease (Acute) Acquired solitary kidney (Acute) Hypothyroidism COPD (chronic obstructive pulmonary disease) (Chronic) Medical History Chronic hyponatremia Chronic headache Dysphagia History of recent pneumonia 03/31/25 (admitted with pneumonia and TIA) per pt has had pneumonia 3x this year--questioning if pt has been having aspiration pneumonia--reason for scheduled EGD, has been having some coughing still, nick in am History of TIA (transient ischemic attack) 03/31/2025--no deficits--unknown cause, did have low sodium at the time and diagnosed with pneumonia as well--was just started on plavix afterwards--follows with Dr. Espino with [facility] History of trigger finger release bilat hands CKD (chronic kidney disease) follows with Dr. Neves Neurogenic bladder Edema BLE's History of COVID-2022 Hypothyroidism Acquired solitary kidney pt has two kidneys, denies COPD (chronic obstructive pulmonary disease) Gastroparesis Chronic cough Depression [facility] of [facility] Mitral regurgitation follows with Dr. Greenfield Acquired blindness of both eyes Hx of sepsis approx 2018 from failed root canal Hx of gastric ulcer Hx of angioedema no known cause Unstable angina stable at present History of stroke 2013 > slight cognitive issues since, helps with medical things LUZMA (obstructive sleep apnea) bipap GERD (gastroesophageal reflux disease) Family history of colon cancer DM type 1 (diabetes mellitus, type 1) History of angiography Premature ventricular beats History of subarachnoid hemorrhage 2013; memory/cognitive deficits (reports total of 3 strokes but only known event was in 2014 -- remaining strokes were incidental findings) CAD (coronary artery disease), nome coronary artery PAD (peripheral artery disease) BPH (benign prostatic hyperplasia) Chronic diastolic CHF (congestive heart failure) pt unable to verify Migraine Microcytic anemia hx Hyperlipidemia Hypertension Ischemic colitis Over 10 years ago (before 2007) Asthma uses res inh few times per week per pt Surgical History Hx of surgical procedure I&D left submandibular and floor of the mouth History of carpal tunnel release right History of esophagogastroduodenoscopy (EGD) Difficult airway for intubation reports he was told he was a difficult intubation after rectal abscess surgery at [facility]. says he has been intubated since then without issues; denies problems prior to that procedure, as well. History of vasectomy History of tonsillectomy and adenoidectomy History of hand surgery Hand Incision Tendon Sheath of a Finger History of rectal abscess I&D History of transurethral resection of prostate History of appendectomy History of eye surgery multiple History of ventral hernia repair H/O colonoscopy recent 02/2025 @ [place] Family History Mother Hypertension Grandfather (Paternal) Colon cancer Prostate cancer Brother Brain cancer Diabetes Bone cancer Kidney disease Lung cancer Son Diabetes Lung cancer Father Hemorrhagic stroke Hypertension Diabetes Heart disease Other Breast cancer No family history of adverse response to anesthesia Testicular cancer Denies family history of Ovarian cancer Myocardial infarction Social History Smoking Status: Former smoker Tobacco Type: Cigarettes Age Started Using Tobacco: 16; Age Quit Using Tobacco: 49; packs per day: 1.5; Second Hand Exposure: No; Do You Dip or Chew Tobacco: No; Hx Alcohol Use: Yes Alcohol type: hard liquor Alcohol Intake Frequency: Monthly or Less Hx Substance Use: No Preferred Language: Mohawk Communication Ability: Effective Communication Ability Comment: pt is blind-- signs consents Communication Tools: Other Visual Impairment: No Limitations Hearing Ability: Hard of Hearing Senior Technical Program Manager Required: No Beliefs That Will Affect Care: None marital status: Current Living Situation: Spouse current occupational status: disabled 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 How many Children do You have: 2 Feels Safe at Home: Yes Childhood Exposure to Second-Hand Smoke: Yes Diet: regular Diet Comment: regular Dental Care, Regularly: Yes Physical Activity Frequency: Does not Exercise Seatbelt Use: always Sunscreen Use: Yes Assistive Devices: Cane Allergies Allergies Allergy/AdvReac Type Severity Reaction Status Date / Time lisinopril Allergy Severe " TONGUE Verified 05/20/25 11:16 SWELLS"--ANGIOEDEMA lorazepam AdvReac Intermediate Hallucinati Verified 05/20/25 11:16 ons Home Meds Home Medications Medication Instructions Recorded Confirmed lactobacillus combination no.4 3 3,000 mmu cells PO QAM 08/06/18 06/23/25 billion cell capsule (Probiotic) aspirin 81 mg tablet,delayed 81 mg PO QAM 06/09/19 06/23/25 release glucosamine sulfate 500 mg tablet 500 mg PO QDL 07/05/19 06/23/25 (Glucosamine) ferrous sulfate 325 mg (65 mg 325 mg PO BID 03/25/21 05/20/25 iron) tablet fexofenadine 180 mg tablet 180 mg PO QAM 08/28/22 06/23/25 (Manuela Allergy) pcmoiem-gmecuvgrtgbdp-mjeskyqf 250 1 tab PO Q6H PRN Migraine Headache 01/08/24 05/20/25 mg-250 mg-65 mg tablet (Excedrin Migraine) famotidine 20 mg tablet 20 mg PO BID 11/06/24 06/23/25 insulin aspart U-100 100 unit/mL 0 sliding scale dose subcut UD 11/06/24 05/20/25 (3 mL) subcutaneous pen (Novolog FlexPen U-100 Insulin aspart) promethazine 25 mg tablet 25 mg PO Q6H PRN n/v 11/06/24 05/20/25 montelukast 10 mg tablet 10 mg PO HS 11/24/24 06/23/25 acetaminophen 325 mg tablet 325 mg PO Q6H PRN PAIN/FEVER 01/13/25 06/23/25 (Tylenol) sennosides 8.6 mg tablet (senna) 8.6 mg PO BID 01/13/25 06/23/25 sodium chloride 1,000 mg soluble 1,000 - 2,000 mg PO QID 01/13/25 06/23/25 tablet magnesium oxide 400 mg PO DAILY 03/31/25 06/23/25 famotidine 40 mg tablet 40 mg PO HS 04/13/25 06/23/25 sucralfate 1 gram tablet 1 g PO ACHS 05/11/25 05/20/25 Previous Rx's Medication Instructions Recorded levothyroxine 175 mcg tablet 175 mcg PO QAM #90 tabs 11/06/23 BiPap Machine #1 ea 05/29/24 atorvastatin 80 mg tablet 80 mg PO HS #90 tabs 07/08/24 pantoprazole 40 mg tablet,delayed 40 mg PO BID #180 tabs 07/21/24 release (Protonix) fluticasone fur. 100 mcg-umeclid 1 inh inhalation QAM 90 days #90 09/08/24 62.5 mcg-vilant 25 mcg puffs inhalat.powder (Trelegy Ellipta) metoclopramide HCl 10 mg tablet 10 mg PO QID #120 tabs 09/22/24 (Reglan) bumetanide 1 mg tablet 1 mg PO BID #180 tabs 09/29/24 albuterol sulfate 90 mcg/actuation 2 puff inhalation Q4H PRN 01/12/25 aerosol inhaler Shortness Of Breath #8.5 grams ondansetron HCl 8 mg tablet 8 mg PO TID PRN nausea and 03/04/25 vomiting #30 tabs hydrocodone-homatropine 5 mg-1.5 1 tab PO BID PRN cough #60 tabs 03/23/25 mg tablet amlodipine 2.5 mg tablet 2.5 mg PO QAM #90 tabs 04/06/25 levalbuterol HCl 0.63 mg/3 mL 0.63 mg (3 mL) inhalation Q6H PRN 04/13/25 solution for nebulization shortness of breath or wheezing #360 mL atenolol 50 mg tablet (Tenormin) 50 mg PO BID #180 tabs 05/04/25 isosorbide mononitrate 30 mg 30 mg PO QAM #90 tabs 05/04/25 tablet,extended release 24 hr losartan 100 mg tablet 100 mg PO QAM #90 tabs 05/04/25 nortriptyline 25 mg capsule 50 mg (2 x 25 mg) PO HS #180 caps 05/04/25 tamsulosin 0.4 mg capsule (Flomax) 0.4 mg PO QPM #90 caps 05/07/25 insulin degludec 100 unit/mL (3 30 unit (0.3 mL) subcut BID #0 mL 05/13/25 mL) subcutaneous pen (Tresiba FlexTouch U-100 insulin) clopidogrel 75 mg tablet 75 mg PO DAILY #30 tabs 06/01/25 folic acid 1 mg tablet 1 mg PO BID #180 tabs 06/02/25 oxycodone-acetaminophen 5 mg-325 1 - 2 tab PO DAILY PRN Pain 30 06/10/25 mg tablet (Percocet) days #60 tabs dutasteride 0.5 mg capsule 0.5 mg PO DAILY #90 caps 06/19/25 Results & Data (ED) Vital Signs Vital Signs - 24 hr 06/23/25 03:03 06/23/25 03:05 06/23/25 03:05 Temperature Temperature Source Pulse Rate 100 H Pulse Rate [Right Finger] Pulse Rate from SpO2 Sensor Pulse Rhythm Pulse Rhythm [Right Finger] Pulse Strength Pulse Strength [Right Finger] Respiratory Rate Respiratory Effort / Characteristics Respiratory Depth Respiratory Pattern Blood Pressure 129/63 129/63 Blood Pressure [Right Arm] Blood Pressure Mean 88 88 Blood Pressure Mean [Right Arm] Blood Pressure Position Blood Pressure Position [Right Arm] Pulse Oximetry Oxygen Delivery Method Oxygen Flow Rate Sepsis Recent Fever Within 48 Hours Sepsis New/Unexplained Change in Mental Status Sepsis Action Taken by Nursing 06/23/25 03:09 06/23/25 03:14 06/23/25 03:14 Temperature Temperature Source Pulse Rate 100 H Pulse Rate [Right Finger] Pulse Rate from SpO2 Sensor 100 H Pulse Rhythm Pulse Rhythm [Right Finger] Pulse Strength Pulse Strength [Right Finger] Respiratory Rate 30 H Respiratory Effort / Characteristics Respiratory Depth Respiratory Pattern Blood Pressure 165/77 H 165/77 H Blood Pressure [Right Arm] Blood Pressure Mean 114 114 Blood Pressure Mean [Right Arm] Blood Pressure Position Blood Pressure Position [Right Arm] Pulse Oximetry 92 Oxygen Delivery Method Oxygen Flow Rate Sepsis Recent Fever Within 48 Hours Sepsis New/Unexplained Change in Mental Status Sepsis Action Taken by Nursing 06/23/25 03:25 06/23/25 03:25 06/23/25 03:30 Temperature Temperature Source Pulse Rate Pulse Rate [Right Finger] Pulse Rate from SpO2 Sensor Pulse Rhythm Pulse Rhythm [Right Finger] Pulse Strength Pulse Strength [Right Finger] Respiratory Rate Respiratory Effort / Characteristics Respiratory Depth Respiratory Pattern Blood Pressure 140/77 140/77 139/65 Blood Pressure [Right Arm] Blood Pressure Mean 117 117 85 Blood Pressure Mean [Right Arm] Blood Pressure Position Blood Pressure Position [Right Arm] Pulse Oximetry Oxygen Delivery Method Oxygen Flow Rate Sepsis Recent Fever Within 48 Hours Sepsis New/Unexplained Change in Mental Status Sepsis Action Taken by Nursing 06/23/25 03:30 06/23/25 03:33 06/23/25 03:35 Temperature Temperature Source Pulse Rate 97 H Pulse Rate [Right Finger] Pulse Rate from SpO2 Sensor 97 H Pulse Rhythm Pulse Rhythm [Right Finger] Pulse Strength Pulse Strength [Right Finger] Respiratory Rate 33 H Respiratory Effort / Characteristics Respiratory Depth Respiratory Pattern Blood Pressure 139/65 136/63 Blood Pressure [Right Arm] Blood Pressure Mean 85 97 Blood Pressure Mean [Right Arm] Blood Pressure Position Blood Pressure Position [Right Arm] Pulse Oximetry 97 Oxygen Delivery Method Oxygen Flow Rate Sepsis Recent Fever Within 48 Hours Sepsis New/Unexplained Change in Mental Status Sepsis Action Taken by Nursing 06/23/25 03:40 06/23/25 03:45 06/23/25 03:46 Temperature Temperature Source Pulse Rate 97 H Pulse Rate [Right Finger] Pulse Rate from SpO2 Sensor 97 H Pulse Rhythm Pulse Rhythm [Right Finger] Pulse Strength Pulse Strength [Right Finger] Respiratory Rate 33 H Respiratory Effort / Characteristics Respiratory Depth Respiratory Pattern Blood Pressure 137/67 133/71 Blood Pressure [Right Arm] Blood Pressure Mean 102 84 Blood Pressure Mean [Right Arm] Blood Pressure Position Blood Pressure Position [Right Arm] Pulse Oximetry 96 Oxygen Delivery Method Oxygen Flow Rate Sepsis Recent Fever Within 48 Hours Sepsis New/Unexplained Change in Mental Status Sepsis Action Taken by Nursing 06/23/25 03:50 06/23/25 03:50 06/23/25 03:50 Temperature 37.0 C Temperature Source Oral Pulse Rate 97 H Pulse Rate [Right Finger] Pulse Rate from SpO2 Sensor Pulse Rhythm Regular Pulse Rhythm [Right Finger] Pulse Strength Normal Pulse Strength [Right Finger] Respiratory Rate 32 H Respiratory Effort / Characteristics Short of Breath Spontaneous Respiratory Depth Respiratory Pattern Tachypnea Regular Blood Pressure 140/77 Blood Pressure [Right Arm] Blood Pressure Mean 98 Blood Pressure Mean [Right Arm] Blood Pressure Position Lying Blood Pressure Position [Right Arm] Pulse Oximetry 97 Oxygen Delivery Method Nasal Cannula Nasal Cannula Nasal Cannula Oxygen Flow Rate 6 6 6 Sepsis Recent Fever Within 48 Hours No Sepsis New/Unexplained Change in Mental Status N/A Sepsis Action Taken by Nursing No Action Required 06/23/25 03:50 06/23/25 03:50 06/23/25 03:50 Temperature 37.0 C Temperature Source Oral Pulse Rate 97 H Pulse Rate [Right Finger] 97 H Pulse Rate from SpO2 Sensor Pulse Rhythm Regular Pulse Rhythm [Right Finger] Regular Pulse Strength Pulse Strength [Right Finger] Normal Respiratory Rate 32 H 32 H Respiratory Effort / Characteristics Non-Labored Spontaneous Respiratory Depth Normal Respiratory Pattern Regular Blood Pressure 130/74 Blood Pressure [Right Arm] 140/77 Blood Pressure Mean 88 Blood Pressure Mean [Right Arm] 98 Blood Pressure Position Blood Pressure Position [Right Arm] Lying Pulse Oximetry 97 97 Oxygen Delivery Method Nasal Cannula Nasal Cannula Oxygen Flow Rate 6 6 Sepsis Recent Fever Within 48 Hours Sepsis New/Unexplained Change in Mental Status Sepsis Action Taken by Nursing 06/23/25 03:50 06/23/25 03:50 06/23/25 03:50 Temperature Temperature Source Pulse Rate Pulse Rate [Right Finger] Pulse Rate from SpO2 Sensor Pulse Rhythm Pulse Rhythm [Right Finger] Pulse Strength Pulse Strength [Right Finger] Respiratory Rate Respiratory Effort / Characteristics Respiratory Depth Respiratory Pattern Blood Pressure 130/74 130/74 130/74 Blood Pressure [Right Arm] Blood Pressure Mean 88 88 88 Blood Pressure Mean [Right Arm] Blood Pressure Position Blood Pressure Position [Right Arm] Pulse Oximetry Oxygen Delivery Method Oxygen Flow Rate Sepsis Recent Fever Within 48 Hours Sepsis New/Unexplained Change in Mental Status Sepsis Action Taken by Nursing 06/23/25 03:51 06/23/25 03:55 06/23/25 04:01 Temperature Temperature Source Pulse Rate 96 H Pulse Rate [Right Finger] Pulse Rate from SpO2 Sensor 95 H Pulse Rhythm Pulse Rhythm [Right Finger] Pulse Strength Pulse Strength [Right Finger] Respiratory Rate 22 Respiratory Effort / Characteristics Respiratory Depth Respiratory Pattern Blood Pressure 136/64 94/74 L Blood Pressure [Right Arm] Blood Pressure Mean 86 75 Blood Pressure Mean [Right Arm] Blood Pressure Position Blood Pressure Position [Right Arm] Pulse Oximetry 95 Oxygen Delivery Method Oxygen Flow Rate Sepsis Recent Fever Within 48 Hours Sepsis New/Unexplained Change in Mental Status Sepsis Action Taken by Nursing 06/23/25 04:05 06/23/25 04:05 06/23/25 04:09 Temperature Temperature Source Pulse Rate 101 H Pulse Rate [Right Finger] Pulse Rate from SpO2 Sensor 100 H Pulse Rhythm Pulse Rhythm [Right Finger] Pulse Strength Pulse Strength [Right Finger] Respiratory Rate 31 H Respiratory Effort / Characteristics Respiratory Depth Respiratory Pattern Blood Pressure 123/60 123/60 Blood Pressure [Right Arm] Blood Pressure Mean 91 91 Blood Pressure Mean [Right Arm] Blood Pressure Position Blood Pressure Position [Right Arm] Pulse Oximetry 96 Oxygen Delivery Method Oxygen Flow Rate Sepsis Recent Fever Within 48 Hours Sepsis New/Unexplained Change in Mental Status Sepsis Action Taken by Nursing 06/23/25 04:10 06/23/25 04:10 06/23/25 04:10 Temperature Temperature Source Pulse Rate Pulse Rate [Right Finger] Pulse Rate from SpO2 Sensor Pulse Rhythm Pulse Rhythm [Right Finger] Pulse Strength Pulse Strength [Right Finger] Respiratory Rate Respiratory Effort / Characteristics Respiratory Depth Respiratory Pattern Blood Pressure 147/69 H 147/69 H 147/69 H Blood Pressure [Right Arm] Blood Pressure Mean 105 105 105 Blood Pressure Mean [Right Arm] Blood Pressure Position Blood Pressure Position [Right Arm] Pulse Oximetry Oxygen Delivery Method Oxygen Flow Rate Sepsis Recent Fever Within 48 Hours Sepsis New/Unexplained Change in Mental Status Sepsis Action Taken by Nursing 06/23/25 04:10 06/23/25 04:10 06/23/25 04:12 Temperature Temperature Source Pulse Rate 96 H Pulse Rate [Right Finger] Pulse Rate from SpO2 Sensor 96 H Pulse Rhythm Pulse Rhythm [Right Finger] Pulse Strength Pulse Strength [Right Finger] Respiratory Rate 28 H Respiratory Effort / Characteristics Respiratory Depth Respiratory Pattern Blood Pressure 147/69 H 147/69 H Blood Pressure [Right Arm] Blood Pressure Mean 105 105 Blood Pressure Mean [Right Arm] Blood Pressure Position Blood Pressure Position [Right Arm] Pulse Oximetry 95 Oxygen Delivery Method Oxygen Flow Rate Sepsis Recent Fever Within 48 Hours Sepsis New/Unexplained Change in Mental Status Sepsis Action Taken by Nursing 06/23/25 04:15 06/23/25 04:15 06/23/25 04:15 Temperature Temperature Source Pulse Rate Pulse Rate [Right Finger] Pulse Rate from SpO2 Sensor Pulse Rhythm Pulse Rhythm [Right Finger] Pulse Strength Pulse Strength [Right Finger] Respiratory Rate Respiratory Effort / Characteristics Respiratory Depth Respiratory Pattern Blood Pressure 133/62 133/62 133/62 Blood Pressure [Right Arm] Blood Pressure Mean 81 81 81 Blood Pressure Mean [Right Arm] Blood Pressure Position Blood Pressure Position [Right Arm] Pulse Oximetry Oxygen Delivery Method Oxygen Flow Rate Sepsis Recent Fever Within 48 Hours Sepsis New/Unexplained Change in Mental Status Sepsis Action Taken by Nursing 06/23/25 04:15 06/23/25 04:15 06/23/25 04:30 Temperature Temperature Source Pulse Rate 95 H Pulse Rate [Right Finger] 95 H 89 Pulse Rate from SpO2 Sensor 90 Pulse Rhythm Pulse Rhythm [Right Finger] Regular Regular Pulse Strength Pulse Strength [Right Finger] Normal Normal Respiratory Rate 32 H 32 H 30 H Respiratory Effort / Characteristics Non-Labored Spontaneous Non-Labored Spontaneous Respiratory Depth Normal Normal Respiratory Pattern Regular Regular Blood Pressure Blood Pressure [Right Arm] 132/62 124/61 Blood Pressure Mean Blood Pressure Mean [Right Arm] 85 82 Blood Pressure Position Blood Pressure Position [Right Arm] Lying Lying Pulse Oximetry 95 94 94 Oxygen Delivery Method Nasal Cannula Nasal Cannula Oxygen Flow Rate 5 5 Sepsis Recent Fever Within 48 Hours Sepsis New/Unexplained Change in Mental Status Sepsis Action Taken by Nursing 06/23/25 04:45 06/23/25 05:00 06/23/25 05:15 Temperature Temperature Source Pulse Rate Pulse Rate [Right Finger] 88 85 84 Pulse Rate from SpO2 Sensor Pulse Rhythm Pulse Rhythm [Right Finger] Regular Regular Regular Pulse Strength Pulse Strength [Right Finger] Normal Normal Normal Respiratory Rate 30 H 29 H 29 H Respiratory Effort / Characteristics Non-Labored Spontaneous Non-Labored Spontaneous Non-Labored Spontaneous Respiratory Depth Normal Normal Normal Respiratory Pattern Regular Regular Regular Blood Pressure Blood Pressure [Right Arm] 146/76 H 123/66 126/78 Blood Pressure Mean Blood Pressure Mean [Right Arm] 99 85 94 Blood Pressure Position Blood Pressure Position [Right Arm] Lying Lying Lying Pulse Oximetry 94 95 96 Oxygen Delivery Method Nasal Cannula Nasal Cannula Nasal Cannula Oxygen Flow Rate 5 5 5 Sepsis Recent Fever Within 48 Hours Sepsis New/Unexplained Change in Mental Status Sepsis Action Taken by Nursing 06/23/25 05:30 06/23/25 05:45 Temperature Temperature Source Pulse Rate Pulse Rate [Right Finger] 83 82 Pulse Rate from SpO2 Sensor Pulse Rhythm Pulse Rhythm [Right Finger] Regular Regular Pulse Strength Pulse Strength [Right Finger] Normal Normal Respiratory Rate 26 H 28 H Respiratory Effort / Characteristics Non-Labored Spontaneous Non-Labored Spontaneous Respiratory Depth Normal Normal Respiratory Pattern Regular Regular Blood Pressure Blood Pressure [Right Arm] 157/87 H 186/63 H Blood Pressure Mean Blood Pressure Mean [Right Arm] 110 104 Blood Pressure Position Blood Pressure Position [Right Arm] Lying Lying Pulse Oximetry 97 95 Oxygen Delivery Method Nasal Cannula Nasal Cannula Oxygen Flow Rate 5 5 Sepsis Recent Fever Within 48 Hours Sepsis New/Unexplained Change in Mental Status Sepsis Action Taken by Nursing Laboratory Data 06/23/25 03:05 06/23/25 03:05 Lab Results 06/23/25 06/23/25 06/23/25 Range/Units 03:05 03:48 03:51 WBC 3.47 L (4.8-10.8) K/ul RBC 4.60 L (4.70-6.10) M/uL Hgb 14.5 (14.0-18.0) g/dl Hct 42.2 (42.0-52.0) % MCV 91.7 (80.0-100.0) fL MCH 31.5 (25.0-34.0) pg MCHC 34.4 (32.0-36.0) g/dL RDW Std Deviation 42.4 (36.4-46.3) fL RDW Coeff of Analisa 12.6 (11.5-14.5) % Plt Count 333 (130-400) K/uL MPV 10.2 (9.4-12.4) fL Neutrophils % (Manual) 50 % Lymphocytes % (Manual) 23 % Monocytes % (Manual) 5 % Metamyelocytes % (Man) 2 % Neutrophils # (Manual) 1.74 (1.40-6.50) K/uL Total Absolute Neuts 1.74 (1.4-6.5) K/uL Lymphocytes # (Manual) 0.80 L (1.2-3.4) K/uL Total Abs Lymphocytes 1.49 (1.2-3.4) K/uL Monocytes # (Manual) 0.17 (0.11-0.59) K/uL Metamyelocytes # (Man) 0.07 H (0-0) K/uL Large Granular Lymphs 20 % # Lrg Granular Lymphs 0.69 K/uL Polychromasia 1+ Echinocytes 1+ Sodium 124 L (136-145) mmol/L Potassium 6.9 H* (3.5-5.1) mmol/L Chloride 93 L (98-107) mmol/L Carbon Dioxide 22 (21-32) mmol/L Anion Gap 9 (3-11) BUN 26 H (6-23) mg/dl Creatinine 1.73 H (0.6-1.4) mg/dl Est Cr Clr Drug Dosing Not Reportable eGFR 43.27 BUN/Creatinine Ratio 15.0 (10-20) Glucose 218 H (70-99(Fasting)) mg/dl Lactate 5.0 H* (0.4-2.0) mmol/L Calcium 8.5 L (8.6-10.3) mg/dl Magnesium 1.7 (1.7-2.4) mg/dl Total Bilirubin 1.4 H (0.2-1.0) mg/dl AST 26 (13-39) U/L ALT 35 (7-52) U/L Alkaline Phosphatase 71 (34-104) U/L Troponin I High Sens 9.2 (0-20) pg/ml Total Protein 6.4 (6.0-8.3) gm/dl Albumin 3.7 (3.4-5.0) gm/dl Globulin 2.7 (2.5-4.0) gm/dl Albumin/Globulin Ratio 1.4 (0.9-2) Procalcitonin 6.22 H (0-0.5) ng/ml TSH Cancelled Urine Color Urine Appearance (Clear) Urine pH (4.5-7.5) Ur Specific Joiner (1.000-1.030) Urine Protein (Negative) Urine Glucose (UA) (Negative) Urine Ketones (Negative) Urine Blood (Negative) Urine Nitrite (Negative) Urine Bilirubin (Negative) Urine Urobilinogen (Negative) Ur Leukocyte Esterase (Negative) Urine WBC (Auto) (0-5) /hpf Urine RBC (Auto) (0-2) /hpf U Hyaline Cast (Auto) (0-2) /lpf U Epithel Cells (Auto) (0-2) /hpf Urine Bacteria (Auto) (None Seen) Urine Comment Adenovirus (PCR) Not Detected (NotDetected) B. pertussis DNA (PCR) Not Detected (NotDetected) B.parapertussis DNA PCR Not Detected (NotDetected) C. pneumoniae DNA (PCR) Not Detected (NotDetected) Coronavirus OC43 (PCR) Not Detected (NotDetected) Coronavirus HKU1 (PCR) Not Detected (NotDetected) Coronavirus 229E (PCR) Not Detected (NotDetected) SARS-CoV-2 (PCR) Not Detected (NotDetected) Coronavirus NL63 (PCR) Not Detected (NotDetected) Human Metapneumovir PCR Not Detected (NotDetected) Influenza Type A (PCR) Not Detected (NotDetected) Influenza Type B (PCR) Not Detected (NotDetected) M. pneumoniae (PCR) Not Detected (NotDetected) Parainfluenza 1 (PCR) Not Detected (NotDetected) Parainfluenza 2 (PCR) Not Detected (NotDetected) Parainfluenza 3 (PCR) Not Detected (NotDetected) Parainfluenza 4 (PCR) Not Detected (NotDetected) RSV (PCR) Not Detected (NotDetected) Entero/Rhino (PCR) Not Detected (NotDetected) 06/23/25 Range/Units 05:58 WBC (4.8-10.8) K/ul RBC (4.70-6.10) M/uL Hgb (14.0-18.0) g/dl Hct (42.0-52.0) % MCV (80.0-100.0) fL MCH (25.0-34.0) pg MCHC (32.0-36.0) g/dL RDW Std Deviation (36.4-46.3) fL RDW Coeff of Analisa (11.5-14.5) % Plt Count (130-400) K/uL MPV (9.4-12.4) fL Neutrophils % (Manual) % Lymphocytes % (Manual) % Monocytes % (Manual) % Metamyelocytes % (Man) % Neutrophils # (Manual) (1.40-6.50) K/uL Total Absolute Neuts (1.4-6.5) K/uL Lymphocytes # (Manual) (1.2-3.4) K/uL Total Abs Lymphocytes (1.2-3.4) K/uL Monocytes # (Manual) (0.11-0.59) K/uL Metamyelocytes # (Man) (0-0) K/uL Large Granular Lymphs % # Lrg Granular Lymphs K/uL Polychromasia Echinocytes Sodium (136-145) mmol/L Potassium (3.5-5.1) mmol/L Chloride (98-107) mmol/L Carbon Dioxide (21-32) mmol/L Anion Gap (3-11) BUN (6-23) mg/dl Creatinine (0.6-1.4) mg/dl Est Cr Clr Drug Dosing eGFR BUN/Creatinine Ratio (10-20) Glucose (70-99(Fasting)) mg/dl Lactate (0.4-2.0) mmol/L Calcium (8.6-10.3) mg/dl Magnesium (1.7-2.4) mg/dl Total Bilirubin (0.2-1.0) mg/dl AST (13-39) U/L ALT (7-52) U/L Alkaline Phosphatase (34-104) U/L Troponin I High Sens (0-20) pg/ml Total Protein (6.0-8.3) gm/dl Albumin (3.4-5.0) gm/dl Globulin (2.5-4.0) gm/dl Albumin/Globulin Ratio (0.9-2) Procalcitonin (0-0.5) ng/ml TSH Urine Color Yellow Urine Appearance Clear (Clear) Urine pH 6.0 (4.5-7.5) Ur Specific Joiner 1.014 (1.000-1.030) Urine Protein Trace H (Negative) Urine Glucose (UA) 2+ H (Negative) Urine Ketones Negative (Negative) Urine Blood Negative (Negative) Urine Nitrite Negative (Negative) Urine Bilirubin Negative (Negative) Urine Urobilinogen Negative (Negative) Ur Leukocyte Esterase Negative (Negative) Urine WBC (Auto) 0-5 (0-5) /hpf Urine RBC (Auto) 0-2 (0-2) /hpf U Hyaline Cast (Auto) 0-2 (0-2) /lpf U Epithel Cells (Auto) 0-2 (0-2) /hpf Urine Bacteria (Auto) None Seen (None Seen) Urine Comment Adenovirus (PCR) (NotDetected) B. pertussis DNA (PCR) (NotDetected) B.parapertussis DNA PCR (NotDetected) C. pneumoniae DNA (PCR) (NotDetected) Coronavirus OC43 (PCR) (NotDetected) Coronavirus HKU1 (PCR) (NotDetected) Coronavirus 229E (PCR) (NotDetected) SARS-CoV-2 (PCR) (NotDetected) Coronavirus NL63 (PCR) (NotDetected) Human Metapneumovir PCR (NotDetected) Influenza Type A (PCR) (NotDetected) Influenza Type B (PCR) (NotDetected) M. pneumoniae (PCR) (NotDetected) Parainfluenza 1 (PCR) (NotDetected) Parainfluenza 2 (PCR) (NotDetected) Parainfluenza 3 (PCR) (NotDetected) Parainfluenza 4 (PCR) (NotDetected) RSV (PCR) (NotDetected) Entero/Rhino (PCR) (NotDetected) Administered Medications Discontinued Medications Albuterol (Albut/Ipratrop 3mg/0.5mg Neb 3 Ml Vial) Confirm Administered Dose 3 ml .ROUTE .STK-MED ONE Stop: 06/23/25 03:06 Last Admin: 06/23/25 03:18 Dose: Not Given Documented By: ANANDA Albuterol (Albut/Ipratrop 3mg/0.5mg Neb 3 Ml Vial) 3 ml NEB NOW STA; Protocol Stop: 06/23/25 03:09 Last Admin: 06/23/25 03:16 Dose: 3 ml Documented By: ANANDA Dextrose (Dextrose 10% 250 Ml Bag) 250 ml IV NOW STA Stop: 06/23/25 04:16 Last Admin: 06/23/25 04:39 Dose: 250 ml Documented By: ANANDA Epinephrine HCl (Epinephrine Inj 1 Mg/Ml Amp) Confirm Administered Dose 1 mg .ROUTE .STK-MED ONE Stop: 06/23/25 03:09 Last Admin: 06/23/25 03:18 Dose: Not Given Documented By: ANANDA Epinephrine HCl (Epinephrine 1.5" Ndl 0.1 Mg/Ml Syr) Confirm Administered Dose 1 mg IV .STK-MED ONE Stop: 06/23/25 03:11 Last Admin: 06/23/25 04:05 Dose: 1 mg Documented By: ANANDA Famotidine (Pepcid 20mg Iv Push) 20 mg in 5 mls @ 2.5 mls/min IV NOW STA Stop: 06/23/25 03:09 Last Admin: 06/23/25 03:15 Dose: 2.5 mls/min Documented By: ANANDA Sodium Chloride (Nss) 250 mls @ 999 mls/hr IV .Q16M ONE Stop: 06/23/25 03:31 Last Infusion: 06/23/25 05:04 Dose: Infused Documented By: Admin: 06/23/25 03:19 Dose: 999 mls/hr Documented By: ANANDA Ampicillin Sodium/Sulbactam Sodium (Unasyn) 3,000 mg in 100 mls @ 200 mls/hr IV NOW STA Stop: 06/23/25 04:42 Last Infusion: 06/23/25 05:39 Dose: Infused Documented By: Admin: 06/23/25 04:37 Dose: 200 mls/hr Documented By: ANANDA Calcium Chloride 1,000 mg/ (Dextrose) 60 mls @ 240 mls/hr IV NOW STA Stop: 06/23/25 04:29 Last Infusion: 06/23/25 05:59 Dose: Infused Documented By: Admin: 06/23/25 05:32 Dose: 240 mls/hr Documented By: AMALIA Sodium Chloride (Nss) 1,000 mls @ 999 mls/hr IV .Q1H1M ONE Stop: 06/23/25 05:45 Last Admin: 06/23/25 05:04 Dose: 999 mls/hr Documented By: ANANDA Sodium Chloride (Nss) 250 mls @ 999 mls/hr IV .Q16M ONE Stop: 06/23/25 05:01 Last Infusion: 06/23/25 06:00 Dose: Infused Documented By: Admin: 06/23/25 04:46 Dose: 999 mls/hr Documented By: ANANDA Insulin Human Regular (Novolin-R Insulin Per Unit Charge) 5 units IV NOW STA Stop: 06/23/25 04:18 Last Admin: 06/23/25 04:42 Dose: 5 units Documented By: ANANDA Co-signed By: MELVINA Imaging Data Radiologist's Impression: Chest X-Ray 06/23/25 03:10 EXAM: XR chest 1V portable CLINICAL HISTORY: sob TECHNIQUE: An X-ray image of the chest is obtained in AP projection. COMPARISON: CR on 05/11/2025. FINDINGS: Pulmonary Parenchyma: Bilateral lower lung lobes alveolar opacities. No pulmonary nodules are identified. No evidence of pleural effusion or pleural thickening. Heart and Mediastinum: Heart size and shape are normal. No mediastinal widening or masses. No hilar or mediastinal lymphadenopathy. Bony Thorax: Bony thorax appears intact without fractures or deformities. Soft Tissues: Soft tissues overlying the chest wall are unremarkable. Chest wall leads and tube overlying the right upper chest wall are noted. IMPRESSION: -Bilateral lower lung lobes alveolar opacities, suggesting infective / inflammtory process.Clinical correlation and follow-up are advised.(new) Electronically signed by Adalberto Mayorga 06-23-2025 04:52 AM Discharge Plan Visit Data Chief Complaint: Allergic Reaction Stated Complaint: ALLERGIC REACTION, HYPOXIA, RASH ED Provider: Yenifer Auguste Discharge Problem: Anaphylaxis, Acute hyperkalemia, Sepsis, Bilateral pneumonia Condition: Critical Forms Stand Alone Forms: My [facility] [employer] Prescriptions Prescriptions: No Action levothyroxine 175 mcg tablet 175 mcg PO QAM Qty: 90 3RF atorvastatin 80 mg tablet 80 mg PO HS Qty: 90 3RF Hold Instructions: Resume on 05/16/25. hold atorvastatin medication until ciprofloxacin antibiotic course is completed pantoprazole [Protonix] 40 mg tablet,delayed release (DR/EC) 40 mg PO BID Qty: 180 3RF metoclopramide HCl [Reglan] 10 mg tablet 10 mg PO QID Qty: 120 5RF bumetanide 1 mg tablet 1 mg PO BID Qty: 180 3RF albuterol sulfate 90 mcg/actuation HFA aerosol inhaler 2 puff inhalation Q4H PRN (Reason: Shortness Of Breath) Qty: 8.5 3RF ondansetron HCl 8 mg tablet 8 mg PO TID PRN (Reason: nausea and vomiting) Qty: 30 1RF hydrocodone-homatropine 5-1.5 mg tablet 1 tab PO BID PRN (Reason: cough) Qty: 60 0RF amlodipine 2.5 mg tablet 2.5 mg PO QAM Qty: 90 3RF levalbuterol HCl 0.63 mg/3 mL solution for nebulization 0.63 mg inhalation Q6H PRN (Reason: shortness of breath or wheezing) Qty: 360 5RF losartan 100 mg tablet 100 mg PO QAM Qty: 90 3RF isosorbide mononitrate 30 mg tablet extended release 24 hr 30 mg PO QAM Qty: 90 3RF Rx Instructions: take 1 tablet by mouth every morning nortriptyline 25 mg capsule 50 mg PO HS Qty: 180 3RF Rx Instructions: take 2 capsules by mouth at bedtime atenolol [Tenormin] 50 mg tablet 50 mg PO BID Qty: 180 3RF tamsulosin [Flomax] 0.4 mg capsule 0.4 mg PO QPM Qty: 90 3RF clopidogrel 75 mg tablet 75 mg PO DAILY Qty: 30 0RF folic acid 1 mg tablet 1 mg PO BID Qty: 180 3RF oxycodone-acetaminophen [Percocet] 5-325 mg tablet 1 - 2 tab PO DAILY PRN (Reason: Pain) 30 Days Qty: 60 0RF Rx Instructions: Take 1 tablet for moderate pain and two tablets for severe pain dutasteride 0.5 mg capsule 0.5 mg PO DAILY Qty: 90 3RF (DME) BiPap Machine Misc .Route Qty: 1 0RF Rx Instructions: BiPAP 05/06, heated humidification, compliance download capabilities. Current machine greater than 5 years old and unable to provide compliance data: DME [place] aspirin 81 mg tablet,delayed release (DR/EC) 81 mg PO QAM ferrous sulfate 325 mg (65 mg iron) tablet 325 mg PO BID Excedrin Migraine 250-250-65 mg tablet 1 tab PO Q6H PRN (Reason: Migraine Headache) Trelegy Ellipta 100-62.5-25 mcg blister with device 1 inh INHALATION QAM 90 Days Qty: 90 3RF montelukast 10 mg tablet 10 mg PO HS glucosamine sulfate [Glucosamine] 500 mg Tablet 500 mg PO QDL Probiotic 3 billion cell Capsule 3,000 mmu cells PO QAM fexofenadine [Manuela Allergy] 180 mg Tablet 180 mg PO QAM famotidine 20 mg Tablet 20 mg PO BID Rx Instructions: TAKES WITH BREAKFAST AND LUNCH insulin aspart U-100 [Novolog FlexPen U-100 Insulin] 100 unit/mL (3 mL) insulin pen 0 sliding scale dose SUBCUT UD Rx Instructions: 1-4 CARBS IS 1 UNIT subcut daily; SLIDING SCALE; FOR EVERY 20 CARBS, ADD ANOTHER 1 UNIT OF INSULIN 2 EXTRA 2 UNITS FOR 150-170 CARBS AND IF OVER 150, ADD 2 UNITS FOR EVERY 20 POINTS OVER FOR HIS BLOOD SUGAR promethazine 25 mg tablet 25 mg PO Q6H PRN (Reason: n/v) Rx Instructions: take 1 tablet by mouth every 6 hours if needed for nausea and vomiting famotidine 40 mg tablet 40 mg PO HS Rx Instructions: TAKE 1 TABLET BY MOUTH EVERYDAY AT BEDTIME sennosides [senna] 8.6 mg Tablet 8.6 mg PO BID acetaminophen [Tylenol] 325 mg Tablet 325 mg PO Q6H PRN (Reason: PAIN/FEVER) sodium chloride 1,000 mg Tablet,Soluble 1,000 - 2,000 mg PO QID Rx Instructions: 2000mg in am/1000mg at lunch/1000mg at dinner/2000mg at hs magnesium oxide 400 mg magnesium Tablet 400 mg PO DAILY sucralfate 1 gram tablet 1 g PO ACHS Rx Instructions: TAKE 1 TABLET BY MOUTH BEFORE MEALS AND AT BEDTIME insulin degludec [Tresiba FlexTouch U-100] 100 unit/mL (3 mL) insulin pen 30 unit subcut BID Qty: 0 0RF Referrals Referrals: Josh Squires III, CRNP [Primary Care Provider] -
[2025-06-23 03:37] LABS: Hematocrit (blood only) 42.2 % (42.0-52.0); Hemoglobin 14.5 g/dl (14.0-18.0); Mean Corpuscular Hemoglobin 31.5 pg (25.0-34.0); Mean Corpuscular Volume 91.7 fL (80.0-100.0); Platelet Count 333 K/uL (130-400); RDW Standard Deviation 42.4 fL (36.4-46.3); Red Blood Count 4.60 M/uL (4.70-6.10); White Blood Count 3.47 K/ul (4.8-10.8)
[2025-06-23 04:01] LABS: Alanine Aminotransferase 35 U/L (7-52); Albumin Globulin Ratio 1.4 (0.9-2); Alkaline Phosphatase 71 U/L (34-104); Anion Gap 9 (3-11); Bilirubin,Total 1.4 mg/dl (0.2-1.0); Blood Urea Nitrogen 26 mg/dl (6-23); Calcium 8.5 mg/dl (8.6-10.3); Carbon Dioxide 22 mmol/L (21-32); Chloride 93 mmol/L (98-107); Globulin 2.7 gm/dl (2.5-4.0); Glucose 218 mg/dl (70-99(Fasting)); Potassium 6.9 mmol/L (3.5-5.1); Sodium 124 mmol/L (136-145); Total Protein 6.4 gm/dl (6.0-8.3)
[2025-06-23] MEDS: AMPICILLIN/SULBACTAM SOD 3,000 MG/100 ML BAG IV STA (04:37)
[2025-06-23] MEDS: DEXTROSE 10% 250 ML BAG IV STA (04:39)
[2025-06-23] MEDS: NovoLIN-R INSULIN PER UNIT CHARGE IV STA (04:42)
--- NOTE | 2025-06-23 04:52 | XRay Report ---
EXAM: XR chest 1V portable CLINICAL HISTORY: sob TECHNIQUE: An X-ray image of the chest is obtained in AP projection. COMPARISON: CR on 05/11/2025. FINDINGS: Pulmonary Parenchyma: Bilateral lower lung lobes alveolar opacities. No pulmonary nodules are identified. No evidence of pleural effusion or pleural thickening. Heart and Mediastinum: Heart size and shape are normal. No mediastinal widening or masses. No hilar or mediastinal lymphadenopathy. Bony Thorax: Bony thorax appears intact without fractures or deformities. Soft Tissues: Soft tissues overlying the chest wall are unremarkable. Chest wall leads and tube overlying the right upper chest wall are noted. IMPRESSION: -Bilateral lower lung lobes alveolar opacities, suggesting infective / inflammtory process.Clinical correlation and follow-up are advised.(new) Electronically signed by Adalberto Mayorga 06-23-2025 04:52 AM
[2025-06-23 04:56] LABS: ALC (manual) 1.49 K/uL (1.2-3.4); ANC (manual) 1.74 K/uL (1.4-6.5); Large Granular Lymph # (manua 0.69 K/uL; Large Granular Lymph % (manual) 20 %; Polychromasia 1+
[2025-06-23] MEDS: SODIUM CHLORIDE 0.9% 1,000 ML IV ONE (05:04)
[2025-06-23 05:20] LABS: Chlamydia pneumoniae PCR Not Detected (NotDetected); Coronavirus 229E PCR Not Detected (NotDetected); Coronavirus CoV-2 (COVID19)PCR Not Detected (NotDetected); Coronavirus HKU1 PCR Not Detected (NotDetected); Coronavirus NL63 PCR Not Detected (NotDetected); Coronavirus OC43PCR Not Detected (NotDetected); Human Metapneumovirus PCR Not Detected (NotDetected); Parainfluenza Virus 1 PCR Not Detected (NotDetected); Parainfluenza Virus 2 PCR Not Detected (NotDetected); Parainfluenza Virus 3 PCR Not Detected (NotDetected); Parainfluenza Virus 4 PCR Not Detected (NotDetected); Respiratory Syncytial VirusPCR Not Detected (NotDetected); Rhinovirus/Enterovirus PCR Not Detected (NotDetected)
[2025-06-23] MEDS: CALCIUM CHLORIDE 10% 1,000 MG in DEXTROSE 5% 50 ML IV STA (05:32)
--- NOTE | 2025-06-23 05:32 | History & Physical Report ---
Date of Service June 23, 2025 Assessment & Plan (1) Rash: (2) Hyperkalemia: (3) Multifocal pneumonia: (4) Diabetes mellitus type 1, uncontrolled: (5) Hyponatremia: (6) Acquired blindness: (7) GERD (gastroesophageal reflux disease): (8) BPH NOS w ur obs/LUTS: (9) Hypertension: (10) Hyperlipidemia: (11) Sleep apnea: (12) PAD (peripheral artery disease): (13) CKD (chronic kidney disease) stage 2, GFR 60-89 ml/min: (14) CAD (coronary atherosclerotic disease): (15) Hypothyroidism: (16) COPD (chronic obstructive pulmonary disease): Plan 64yo male with multiple medical comorbidities presenting with severe allergic reaction - rash with anaphylaxis. Etiology unclear. Possible rash secondary to Plavix, possible infectious. #Rash/Anaphylaxis - diffuse, symmetrical, erythematous, pruritic, urticarial rash - sparing of palms/soles/mucus membranes. Inciting event unknown. Patient remains hemodynamically stable following administration of epinephrine IM and IV. No airway involvement. No desquamation or blistering -Admit to MICU -Check eosinophil level, tryptase -Monitor rash -Treatment with Solumedrol 40mg IV BID -Pepcid 20mg IV BID and 40mg po qHS -Benadryl 50mg IV q 6 hours -Continue Fexofenadine -Continue Montelukast -Will hold antihypertensives for now and continue to monitor BP response (Amlodipine, Atenolol, Bumex, Isosorbide mononitrate, Losartan #Pneumonia - CXR suggestive of bilateral lower lobe PNA. Patient reports fever today as well as productive cough. Respiratory biofire panel is negative. -Follow blood cultures -Obtain sputum culture -Empiric coverage for now with Ceftriaxone and Azithromycin - consider broadening to include anaerobic coverage - patient with history of aspiration -Check MRSA nares #Hyponatremia - chronic. Patient is on salt tablets daily. Na [id number], slightly lower than baseline -Continue hydration -Repeat chemistry upon arrival to ICU -Continue salt tablets #NITIN/Hyperkalemia- patient with NITIN on CKD. Cr today=1.73, increased from most recently 1.34. Hyperkalemia with K=6.9 s/p treatment with IVF, Insulin/D50, Calcium gluconate and Albuterol -Continue hydration -Repeat chemistry -Avoid nephrotoxic medications -Renal dosing where needed #COPD -Continue Trelegy or formulary equivalent -Xopenex PRN -Supplemental O2 as needed #LUZMA -BiPAP at night #BPH -Continue Flomax #GERD -Protonix 40mg po BID -Pepcid IV #Hypothyroidism -Continue Synthroid #DM -Glycemic management per MICU #Hyperlipidemia -Continue Atorvastatin #CAD/possible TIA -Continue ASA -Holding Plavix, possibly contributing to rash -Continue Atorvastatin History of Present Illness Chief Complaint: rash, allergic reaction Primary Care Provider: Josh Squiers, III, PATRIC Sam Larson is a 64yo male with multiple medical comorbidities presenting wit h acute rash and allergic reaction. Patient has chronic cough - reports that over the last 2-3 days his cough has gotten worse and has become productive for coe-brown colored sputum. Patient was febrile all day today. This afternoon he took a Tussin pill (same medication he has been taking for many years). Shortly after patient developed acute, severe generalized weakness with inability to walk or hold himself up. His then noted an erythematous rash on his neck and face and under his arms and back bilaterally. Patient then went to sleep. He then had worsening facial swelling, SOB and increased fever so patient's called 911. Per EMS patient with significant rash. He was hypotensive with BP in the 80's, hypoxic with saturation of 83%. EMS administered 250mL NSS, 0.3 IM epinephrine, 50mg Benadryl 125mg Solumedrol. Upon arrival to the ER patient noted to have diffuse, well demarcated, erythematous rash with swelling of lips and ears bilaterally. Rash is painless. Some itching. Patient with episode of low blood pressure in the ER so was given a second dose of epinephrine IV. Patient denies throat swelling, hoarsness or SOB at present. No abdominal discomfort, nausea, vomiting, diarrhea. No oral lesions. Patient was started on Plavix in March for a TIA. Otherwise no new medications. No recent vaccinations. No new shampoos, detergents, personal hygiene products, etc No insect bites No new foods Does have history of angioedema with Lisinopril. No other allergic/anaphylactic reactions reported ER Course: Pepcid 20mg IV Albuterol 3mL neb NSS x 250mL Epinephrine 1mg Unasyn 3gm Dextrose 250mL Insulin 5u IV NSS x 1L Calcium chloride 1gm IV Allergies Allergy/AdvReac Type Severity Reaction Status Date / Time lisinopril Allergy Severe " TONGUE Verified 05/20/25 11:16 SWELLS"--ANGIOEDEMA lorazepam AdvReac Intermediate Hallucinati Verified 05/20/25 11:16 ons Home Medications Medication Instructions Recorded Confirmed Type lactobacillus combination no.4 3 3,000 mmu cells PO QAM 08/06/18 06/23/25 Hi story billion cell capsule (Probiotic) aspirin 81 mg tablet,delayed 81 mg PO QAM 06/09/19 06/23/25 History release glucosamine sulfate 500 mg tablet 500 mg PO QDL 07/05/19 06/23/25 History (Glucosamine) ferrous sulfate 325 mg (65 mg 325 mg PO BID 03/25/21 05/20/25 History iron) tablet fexofenadine 180 mg tablet 180 mg PO QAM 08/28/22 06/23/25 History ([place] Allergy) levothyroxine 175 mcg tablet 175 mcg PO QAM #90 tabs 11/06/23 06/23/25 Rx crohigv-jiievekhxvnvq-dufiawuq 250 1 tab PO Q6H PRN Migraine Headache 01/08/24 05/20/25 History mg-250 mg-65 mg tablet (Excedrin Migraine) BiPap Machine #1 ea 05/29/24 05/20/25 Rx atorvastatin 80 mg tablet 80 mg PO HS #90 tabs 07/08/24 06/23/25 Rx pantoprazole 40 mg tablet,delayed 40 mg PO BID #180 tabs 07/21/24 06/23/25 Rx release (Protonix) fluticasone fur. 100 mcg-umeclid 1 inh inhalation QAM 90 days #90 09/08/24 06/23/25 Rx 62.5 mcg-vilant 25 mcg puffs inhalat.powder (Trelegy Ellipta) metoclopramide HCl 10 mg tablet 10 mg PO QID #120 tabs 09/22/24 06/23/25 Rx (Reglan) bumetanide 1 mg tablet 1 mg PO BID #180 tabs 09/29/24 06/23/25 Rx famotidine 20 mg tablet 20 mg PO BID 11/06/24 06/23/25 History insulin aspart U-100 100 unit/mL 0 sliding scale dose subcut UD 11/06/24 05/20/25 History (3 mL) subcutaneous pen (Novolog FlexPen U-100 Insulin aspart) promethazine 25 mg tablet 25 mg PO Q6H PRN n/v 11/06/24 05/20/25 History montelukast 10 mg tablet 10 mg PO HS 11/24/24 06/23/25 History albuterol sulfate 90 mcg/actuation 2 puff inhalation Q4H PRN 01/12/25 06/23/25 Rx aerosol inhaler Shortness Of Breath #8.5 grams acetaminophen 325 mg tablet 325 mg PO Q6H PRN PAIN/FEVER 01/13/25 06/23/25 History (Tylenol) sennosides 8.6 mg tablet (senna) 8.6 mg PO BID 01/13/25 06/23/25 History sodium chloride 1,000 mg soluble 1,000 - 2,000 mg PO QID 01/13/25 06/23/25 History tablet ondansetron HCl 8 mg tablet 8 mg PO TID PRN nausea and 03/04/25 06/23/25 Rx vomiting #30 tabs hydrocodone-homatropine 5 mg-1.5 1 tab PO BID PRN cough #60 tabs 03/23/25 06/23/25 Rx mg tablet magnesium oxide 400 mg PO DAILY 03/31/25 06/23/25 History amlodipine 2.5 mg tablet 2.5 mg PO QAM #90 tabs 04/06/25 06/23/25 Rx famotidine 40 mg tablet 40 mg PO HS 04/13/25 06/23/25 History levalbuterol HCl 0.63 mg/3 mL 0.63 mg (3 mL) inhalation Q6H PRN 04/13/25 06/23/25 Rx solution for nebulization shortness of breath or wheezing #360 mL atenolol 50 mg tablet (Tenormin) 50 mg PO BID #180 tabs 05/04/25 06/23/25 Rx isosorbide mononitrate 30 mg 30 mg PO QAM #90 tabs 05/04/25 06/23/25 Rx tablet,extended release 24 hr losartan 100 mg tablet 100 mg PO QAM #90 tabs 05/04/25 06/23/25 Rx nortriptyline 25 mg capsule 50 mg (2 x 25 mg) PO HS #180 caps 05/04/25 06/23/25 Rx tamsulosin 0.4 mg capsule (Flomax) 0.4 mg PO QPM #90 caps 05/07/25 06/23/25 Rx sucralfate 1 gram tablet 1 g PO ACHS 05/11/25 05/20/25 History insulin degludec 100 unit/mL (3 30 unit (0.3 mL) subcut BID #0 mL 05/13/25 06/23/25 Rx mL) subcutaneous pen (Tresiba FlexTouch U-100 insulin) clopidogrel 75 mg tablet 75 mg PO DAILY #30 tabs 06/01/25 06/23/25 Rx folic acid 1 mg tablet 1 mg PO BID #180 tabs 06/02/25 Rx oxycodone-acetaminophen 5 mg-325 1 - 2 tab PO DAILY PRN Pain 30 06/10/25 06/23/25 Rx mg tablet (Percocet) days #60 tabs dutasteride 0.5 mg capsule 0.5 mg PO DAILY #90 caps 06/19/25 Rx Past Med/Surg History Problem List (Updated 06/23/25 @ 06:21 by Yenifer Auguste DO) Bilateral pneumonia (Acute) Sepsis (Acute) Acute hyperkalemia (Acute) Anaphylaxis (Acute) Shock Anaphylactoid reaction Chronic daily headache Diabetes mellitus type 1, uncontrolled Enteropathogenic Escherichia coli infection Abnormality of esophagus Recurrent pneumonia Stroke-like symptoms (Acute) Community acquired pneumonia Hyponatremia (Acute) Mitral regurgitation Acquired blindness GERD (gastroesophageal reflux disease) BPH NOS w ur obs/LUTS Multifocal pneumonia (Acute) Exposure to COVID-19 virus (Acute) Hypertension Chronic venous insufficiency Edema Complex sleep apnea syndrome Hyperlipidemia (Chronic) Sleep apnea (Acute) Peripheral neuropathy (Acute) PAD (peripheral artery disease) (Acute) Neurogenic bladder (Acute) Gastroparesis (Acute) Essential hypertension (Acute) Depression (Acute) Chronic cough (Acute) Chronic constipation (Acute) CKD (chronic kidney disease) stage 2, GFR 60-89 ml/min (Acute) CAD (coronary atherosclerotic disease) (Acute) Anemia of chronic disease (Acute) Acquired solitary kidney (Acute) Hypothyroidism COPD (chronic obstructive pulmonary disease) (Chronic) Medical History Chronic hyponatremia Chronic headache Dysphagia History of recent pneumonia 03/31/25 (admitted with pneumonia and TIA) per pt has had pneumonia 3x this year--questioning if pt has been having aspiration pneumonia--reason for scheduled EGD, has been having some coughing still, nick in am History of TIA (transient ischemic attack) 03/31/2025--no deficits--unknown cause, did have low sodium at the time and diagnosed with pneumonia as well--was just started on plavix afterwards--follows with Dr. Espino with [facility] History of trigger finger release bilat hands CKD (chronic kidney disease) follows with Dr. Neves Neurogenic bladder Edema BLE's History of COVID-19 2022 Hypothyroidism Acquired solitary kidney pt has two kidneys, denies COPD (chronic obstructive pulmonary disease) Gastroparesis Chronic cough Depression [facility] of [facility] Mitral regurgitation follows with Dr. Greenfield Acquired blindness of both eyes Hx of sepsis approx 2018 from failed root canal Hx of gastric ulcer Hx of angioedema no known cause Unstable angina stable at present History of stroke 2013 > slight cognitive issues since, helps with medical things LUZMA (obstructive sleep apnea) bipap GERD (gastroesophageal reflux disease) Family history of colon cancer DM type 1 (diabetes mellitus, type 1) History of angiography Premature ventricular beats History of subarachnoid hemorrhage 2013; memory/cognitive deficits (reports total of 3 strokes but only known event was in 2013 -- remaining strokes were incidental findings) CAD (coronary artery disease), [place] coronary artery PAD (peripheral artery disease) BPH (benign prostatic hyperplasia) Chronic diastolic CHF (congestive heart failure) pt unable to verify Migraine Microcytic anemia hx Hyperlipidemia Hypertension Ischemic colitis Over 10 years ago (before 2007) Asthma uses res inh few times per week per pt Surgical History Hx of surgical procedure I&D left submandibular and floor of the mouth History of carpal tunnel release right History of esophagogastroduodenoscopy (EGD) Difficult airway for intubation reports he was told he was a difficult intubation after rectal [place] [facility]. says he has been intubated since then without issues; denies problems prior to that procedure, as well. History of vasectomy History of tonsillectomy and adenoidectomy History of hand surgery Hand Incision Tendon Sheath of a Finger History of rectal abscess I&D History of transurethral resection of prostate History of appendectomy History of eye surgery multiple History of ventral hernia repair H/O colonoscopy recent 02/2025 @ [place] Family History Mother Hypertension Grandfather (Paternal) Colon cancer Prostate cancer Brother Brain cancer Diabetes Bone cancer Kidney disease Lung cancer Son Diabetes Lung cancer Father Hemorrhagic stroke Hypertension Diabetes Heart disease Other Breast cancer No family history of adverse response to anesthesia Testicular cancer Denies family history of Ovarian cancer Myocardial infarction Social History Smoking Status: Former smoker Tobacco Type: Cigarettes Age Started Using Tobacco: 16; Age Quit Using Tobacco: 49; packs per day: 1.5; Second Hand Exposure: No; Do You Dip or Chew Tobacco: No; Hx Alcohol Use: Yes Alcohol type: hard liquor Alcohol Intake Frequency: Monthly or Less Hx Substance Use: No Preferred Language: [place] Communication Ability: Effective Communication Ability Comment: pt is blind-- signs consents Communication Tools: Other Visual Impairment: No Limitations Hearing Ability: Hard of Hearing Director Of Advertising Sales Required: No Beliefs That Will Affect Care: None marital status: Current Living Situation: Spouse current occupational status: disabled 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 How many Children do You have: 2 Feels Safe at Home: Yes Childhood Exposure to Second-Hand Smoke: Yes Diet: regular Diet Comment: regular Dental Care, Regularly: Yes Physical Activity Frequency: Does not Exercise Seatbelt Use: always Sunscreen Use: Yes Assistive Devices: Cane Review of Systems Review of Systems: All systems reviewed & are unremarkable except as noted in HPI & below Physical Exam Physical Exam: General: patient ill in appearance but NAD, answering questions appropriately and following commands Skin: well demarcated, erythematous confluent urticarial rash distributed on face and neck, bilateral axilla and extensor surfaces of upper arms, groin, flexor surfaces of knees and legs. Some isolated lesions on right knee and bilateral arms, no mucosal involvement, no involvement of palms or soles, no blistering or desquamation noted HEENT: NC/AT, absence of eyes bilaterally, ears red, swollen bilaterally, nares patent, moist mucus membranes, dentition intact, no oropharyngeal lesions, no edema of tongue, throat, soft palate or uvula, neck supple, trachea midline, no LAD, no thyromegaly, no JVD, no stridor Heart: +S1/S2, regular, no m/r/g Lungs: equal air entry bilaterally, coarse breath sounds with crackles in bilateral bases to mid-lung field, no wheezing, no stridor, voice without hoarseness Abd: +BS, soft, NT/ND, no masses/organomegaly/ascites Ext: warm, 2+ pulses in UE/LE bilaterally, no clubbing/cyanosis or edema Neuro: nonfocal, patient AA&O x 4, speech intact, no facial droop, moving all extremities on command with equal strength 5/5 Results & Data Results & Data Vital Signs (Past 12 Hours) Vital Signs Temp Pulse Pulse Resp BP BP Pulse Ox 06/23/25 04:15 95 H 32 H 132/62 94 06/23/25 04:15 95 H 32 H 95 06/23/25 04:15 133/62 06/23/25 04:15 133/62 06/23/25 04:15 133/62 06/23/25 04:12 96 H 28 H 95 06/23/25 04:10 147/69 H 06/23/25 04:10 147/69 H 06/23/25 04:10 147/69 H 06/23/25 04:10 147/69 H 06/23/25 04:10 147/69 H 06/23/25 04:09 101 H 31 H 96 06/23/25 04:05 123/60 06/23/25 04:05 123/60 06/23/25 04:01 94/74 L 06/23/25 03:55 136/64 06/23/25 03:51 96 H 22 95 06/23/25 03:50 130/74 06/23/25 03:50 130/74 06/23/25 03:50 130/74 06/23/25 03:50 130/74 06/23/25 03:50 97 H 32 H 97 06/23/25 03:50 37.0 C 97 H 32 H 140/77 97 06/23/25 03:50 06/23/25 03:50 37.0 C 97 H 32 H 140/77 97 06/23/25 03:50 06/23/25 03:46 133/71 06/23/25 03:45 97 H 33 H 96 06/23/25 03:40 137/67 06/23/25 03:35 136/63 06/23/25 03:33 97 H 33 H 97 06/23/25 03:30 139/65 06/23/25 03:30 139/65 06/23/25 03:25 140/77 06/23/25 03:25 140/77 06/23/25 03:14 165/77 H 06/23/25 03:14 165/77 H 06/23/25 03:09 100 H 30 H 92 06/23/25 03:05 129/63 06/23/25 03:05 129/63 06/23/25 03:03 100 H O2 Del Method O2 Flow Rate 06/23/25 04:15 Nasal Cannula 5 06/23/25 04:15 06/23/25 04:15 06/23/25 04:15 06/23/25 04:15 06/23/25 04:12 06/23/25 04:10 06/23/25 04:10 06/23/25 04:10 06/23/25 04:10 06/23/25 04:10 06/23/25 04:09 06/23/25 04:05 06/23/25 04:05 06/23/25 04:01 06/23/25 03:55 06/23/25 03:51 06/23/25 03:50 06/23/25 03:50 06/23/25 03:50 06/23/25 03:50 06/23/25 03:50 Nasal Cannula 6 06/23/25 03:50 Nasal Cannula 6 06/23/25 03:50 Nasal Cannula 6 06/23/25 03:50 Nasal Cannula 6 06/23/25 03:50 Nasal Cannula 6 06/23/25 03:46 06/23/25 03:45 06/23/25 03:40 06/23/25 03:35 06/23/25 03:33 06/23/25 03:30 06/23/25 03:30 06/23/25 03:25 06/23/25 03:25 06/23/25 03:14 06/23/25 03:14 06/23/25 03:09 06/23/25 03:05 06/23/25 03:05 06/23/25 03:03 Laboratory Results Laboratory Results WBC 3.47 K/ul (4.8-10.8) L 06/23/25 03:05 RBC 4.60 M/uL (4.70-6.10) L 06/23/25 03:05 Hgb 14.5 g/dl (14.0-18.0) 06/23/25 03:05 Hct 42.2 % (42.0-52.0) 06/23/25 03:05 MCV 91.7 fL (80.0-100.0) 06/23/25 03:05 MCH 31.5 pg (25.0-34.0) 06/23/25 03:05 MCHC 34.4 g/dL (32.0-36.0) 06/23/25 03:05 RDW Std Deviation 42.4 fL (36.4-46.3) 06/23/25 03:05 RDW Coeff of Analisa 12.6 % (11.5-14.5) 06/23/25 03:05 Plt Count 333 K/uL (130-400) 06/23/25 03:05 MPV 10.2 fL (9.4-12.4) 06/23/25 03:05 Neutrophils % (Manual) 50 % 06/23/25 03:05 Lymphocytes % (Manual) 23 % 06/23/25 03:05 Monocytes % (Manual) 5 % 06/23/25 03:05 Metamyelocytes % (Man) 2 % 06/23/25 03:05 Neutrophils # (Manual) 1.74 K/uL (1.40-6.50) 06/23/25 03:05 Total Absolute Neuts 1.74 K/uL (1.4-6.5) 06/23/25 03:05 Lymphocytes # (Manual) 0.80 K/uL (1.2-3.4) L 06/23/25 03:05 Total Abs Lymphocytes 1.49 K/uL (1.2-3.4) 06/23/25 03:05 Monocytes # (Manual) 0.17 K/uL (0.11-0.59) 06/23/25 03:05 Metamyelocytes # (Man) 0.07 K/uL (0-0) H 06/23/25 03:05 Large Granular Lymphs 20 % 06/23/25 03:05 # Lrg Granular Lymphs 0.69 K/uL 06/23/25 03:05 Polychromasia 1+ 06/23/25 03:05 Echinocytes 1+ 06/23/25 03:05 Sodium 124 mmol/L (136-145) L 06/23/25 03:05 Potassium 6.9 mmol/L (3.5-5.1) H* 06/23/25 03:05 Chloride 93 mmol/L (98-107) L 06/23/25 03:05 Carbon Dioxide 22 mmol/L (21-32) 06/23/25 03:05 Anion Gap 9 (3-11) 06/23/25 03:05 BUN 26 mg/dl (6-23) H 06/23/25 03:05 Creatinine 1.73 mg/dl (0.6-1.4) H 06/23/25 03:05 Est Cr Clr Drug Dosing Not Reportable 06/23/25 03:05 eGFR 43.27 06/23/25 03:05 BUN/Creatinine Ratio 15.0 (10-20) 06/23/25 03:05 Glucose 218 mg/dl (70-99(Fasting)) H 06/23/25 03:05 Lactate 5.0 mmol/L (0.4-2.0) H* 06/23/25 03:48 Calcium 8.5 mg/dl (8.6-10.3) L 06/23/25 03:05 Magnesium 1.7 mg/dl (1.7-2.4) 06/23/25 03:05 Total Bilirubin 1.4 mg/dl (0.2-1.0) H 06/23/25 03:05 AST 26 U/L (13-39) 06/23/25 03:05 ALT 35 U/L (7-52) 06/23/25 03:05 Alkaline Phosphatase 71 U/L (34-104) 06/23/25 03:05 Troponin I High Sens 9.2 pg/ml (0-20) 06/23/25 03:05 Total Protein 6.4 gm/dl (6.0-8.3) 06/23/25 03:05 Albumin 3.7 gm/dl (3.4-5.0) 06/23/25 03:05 Globulin 2.7 gm/dl (2.5-4.0) 06/23/25 03:05 Albumin/Globulin Ratio 1.4 (0.9-2) 06/23/25 03:05 Procalcitonin 6.22 ng/ml (0-0.5) H 06/23/25 03:05 TSH Cancelled 06/23/25 03:05 Adenovirus (PCR) Not Detected (NotDetected) 06/23/25 03:51 B. pertussis DNA (PCR) Not Detected (NotDetected) 06/23/25 03:51 B.parapertussis DNA PCR Not Detected (NotDetected) 06/23/25 03:51 C. pneumoniae DNA (PCR) Not Detected (NotDetected) 06/23/25 03:51 Coronavirus OC43 (PCR) Not Detected (NotDetected) 06/23/25 03:51 Coronavirus HKU1 (PCR) Not Detected (NotDetected) 06/23/25 03:51 Coronavirus 229E (PCR) Not Detected (NotDetected) 06/23/25 03:51 SARS-CoV-2 (PCR) Not Detected (NotDetected) 06/23/25 03:51 Coronavirus NL63 (PCR) Not Detected (NotDetected) 06/23/25 03:51 Human Metapneumovir PCR Not Detected (NotDetected) 06/23/25 03:51 Influenza Type A (PCR) Not Detected (NotDetected) 06/23/25 03:51 Influenza Type B (PCR) Not Detected (NotDetected) 06/23/25 03:51 M. pneumoniae (PCR) Not Detected (NotDetected) 06/23/25 03:51 Parainfluenza 1 (PCR) Not Detected (NotDetected) 06/23/25 03:51 Parainfluenza 2 (PCR) Not Detected (NotDetected) 06/23/25 03:51 Parainfluenza 3 (PCR) Not Detected (NotDetected) 06/23/25 03:51 Parainfluenza 4 (PCR) Not Detected (NotDetected) 06/23/25 03:51 RSV (PCR) Not Detected (NotDetected) 06/23/25 03:51 Entero/Rhino (PCR) Not Detected (NotDetected) 06/23/25 03:51 Impressions Chest X-Ray 06/23/25 03:10 EXAM: XR chest 1V portable CLINICAL HISTORY: sob TECHNIQUE: An X-ray image of the chest is obtained in AP projection. COMPARISON: CR on 05/11/2025. FINDINGS: Pulmonary Parenchyma: Bilateral lower lung lobes alveolar opacities. No pulmonary nodules are identified. No evidence of pleural effusion or pleural thickening. Heart and Mediastinum: Heart size and shape are normal. No mediastinal widening or masses. No hilar or mediastinal lymphadenopathy. Bony Thorax: Bony thorax appears intact without fractures or deformities. Soft Tissues: Soft tissues overlying the chest wall are unremarkable. Chest wall leads and tube overlying the right upper chest wall are noted. IMPRESSION: -Bilateral lower lung lobes alveolar opacities, suggesting infective / inflammtory process.Clinical correlation and follow-up are advised.(new) Electronically signed by Adalberto Mayorga 06-23-2025 04:52 AM Code Status & VTE Plan VTE Prophylaxis Plan VTE Prophylaxis will be ordered: Yes PG Care Time/CCT Total # of Minutes Spent Total Time Spent with Patient: Total time spent is greater than 50% in coordination of care (as documented) at patient's floor/unit and/or counseling patient: Coding Level of Care Code 35026 INT INP/OBS CARE 3/75MIN Diagnoses Rash R21 Hyperkalemia E87.5 Multifocal pneumonia J18.9 Uncontrolled type 1 diabetes mellitus with hyperglycemia E10.65 Hyponatremia E87.1 Acquired blindness H54.7 GERD (gastroesophageal reflux disease) K21.9 BPH NOS w ur obs/LUTS N40.1 Hypertension I10 Mixed hyperlipidemia E78.2 Hyperlipidemia type: mixed hyperlipidemia Sleep apnea G47.30 PAD (peripheral artery disease) I73.9 CKD (chronic kidney disease) stage 2, GFR 60-89 ml/min N18.2 CAD (coronary atherosclerotic disease) I25.10 Acquired hypothyroidism E03.9 Hypothyroidism type: acquired Chronic bronchitis, unspecified chronic bronchitis type J44.9 COPD type: unspecified COPD (10) Hyperlipidemia Hyperlipidemia type: mixed hyperlipidemia Qualified Code(s): E78.2 - Mixed hyperlipidemia (15) Hypothyroidism Hypothyroidism type: acquired Qualified Code(s): E03.9 - Hypothyroidism, unspecified (16) COPD (chronic obstructive pulmonary disease) COPD type: unspecified COPD Qualified Code(s): J44.9 - Chronic obstructive pulmonary disease, unspecified
[2025-06-23 05:38] LABS: Magnesium 1.7 mg/dl (1.7-2.4)
--- NOTE | 2025-06-23 05:42 | Critical Care Consultation ---
Date of Consultation June 23, 2025 Assessment & Plan (1) Recurrent pneumonia: (2) Anaphylactoid reaction: (3) Rash: (4) Hyperkalemia: (5) Shock: Plan Reason Critically Ill: 64 YOM presents for concern of anaphylactic reaction following taking tussin in setting of feeling ill with cough/fevers/malaise for past few days. Patient with shock and skin eruption that is improving following administration of epinephrine, H2, antihistamines, and steroids. To ICU to continue to monitor skin manifestations and hemodynamic support/monitoring for relapse. Neuro - No acute need; hx: TIA, acquired blindness CAM ICU: NEGATIVE - Continue ASA and Plavix Cardiac - Shock- distributive/anaphylaxis, Hx CAD, HLD - Patient presents with anaphylaxis/anaphylactoid type reaction- noted hypotension, hypoxia, mild tachycardia with wheals involving face, chest, arms, and groins bilateral - Dress vs. TENS/SJS vs. AGEP vs. anaphylaxis- Concern for would be likely DRESS vs. TENS/SJS in setting of likely a pneumonia- as there is sparring of the soles of feet and palms of hands, and no mucous membrane involvement at this time or desquamation of the skin favors a DRESS type picture. - Eosinophils not initially reported on CBC- will add on - Tryptase level sent - Will continue with treatment to prevent further anaphylactoid reaction- Benadryl q8hr, Famotidine q12 hour - Epinephrine IV if symptoms return - wean when symptoms start to improve - Continue with his Cyrtirizine or montelukast - Could reach out to allergy this morning and see if available for rounding or consultation - If worsens consider biopsy - If desquamation occurs transfer to burn center would be appropriate - Continue with IVF at 125ml/hour- LR or isotonic bicarb pending potassium level - Continue to trend renal function as well as potassium - Hold antihypertensives until hemodynamics proven stable Respiratory - Pneumonia, HX: Sleep disordered breathing, COPD - Bilateral lower lobe appearance on CXR plain film- - Sputum culture - Rocephin and Azithromycin at this time - wean oxygen as able - BIPAP at night for sleep disordered breathing - COPD- continue GRISELDA and Trelegy or equivalent GI - No acute needs - NPo at this time until symptomatology is proven stable RENAL/LYTES - NITIN, hyperkalemia, hyponatremia - Hyperkalemia and elevated lactate likely secondary to shock at this time - will send TSH and Cortisol - Hyperkalemia- received Ca++gluconate, Dextrose and insulin, epi, and albuterol in the ER- will re-evaluate on arrival to ICU- ECG is without concerning signs and no ectopy - NITIN in setting of shock - continue with volume to maintain MAPS and dilute and flush system - No acute needs ENDO - No acute needs- hx: Hypothyroidism, DM, - ICU hyperglycemic protocol HEME - As above- no concerns for acute bleeding - follow CBC and diff ID - pneumonia- bilateral - Re-current- could consider IGg level workup if this would be appropriate- defer to Attendings - Enmanuel for atypical or mycoplasma - Rocephin for community acquired - Hold on MRSA coverage unless nasal swab is positive - Blood cultures pending - Sputum yet to be obtained LINES/IV ACCESS - PIV Continue use of these lines DVT PROPHYLAXIS - SCDS, Heparin 5000 units subq q8 DISPO: ICU until hemodynamics/respiratory/skin status proven stable Further recommendations and full plan of the day will be provided by my Attending during rounds this morning. Case was discussed real time for the concerns above with DRESS vs. TENS/SJS vs. AGEP or other and anaphylactoid reaction. I have personally spent 45 minutes of critical care time in the direct management of this patient. This is a life/limb threatening event. This includes time spent evaluating patient, direct bedside care, chart review, placing orders, interpretation of diagnostic studies, discussion with consultants, patient, and family members, as well as other required patient management activities. This time is exclusive of all separately billable procedures, and separate from and in addition to any other critical care service time. Thank you for allowing us to participate in the care of this patient. Please refer to my attending physician's documentation for any further recommendations. Supervising Physician Co-Signing Physician Notes Patient seen and examined. EMR reviewed. Discussed with critical care DAMI last night as well as this morning. Discussed with bedside critical care nurse in a multidisciplinary rounds. Evaluated at bedside with DAMI. Ear swelling is improved. Rashes on the trunk appear stable as well as rashes on the lower extremity. He is hemodynamically stable. He has no signs or symptoms of oral mucosal involvement or airway involvement currently. No itchiness of the throat. Lactate is improving. Trend electrolytes including sodium and potassium and follow-up kidney function. Continue steroids, and H1 and H2 blockers. Should the patient's symptoms progress low threshold for involvement of allergy immunology. Chest x-ray reviewed. Bibasilar infiltrates are noted. Patient has a known history of aspiration. Continue antibiotics for now. He has known achalasia an d has been following with GI. No indication for urgent evaluation currently. Continue current antibiotics and follow clinically. History of Present Illness Reason for Consultation: anaphylactoid reaction vs. adverse drug reaction Requesting Physician: Cammy Payne DO Attending Physician: Cammy Payne DO History of Present Illness 64 YOM with medical history of: TIA 04/15 (started on Plavix), recurrent pneumonias, chronic aspiration, hyponatremia (SIADH), hypothyroidism, COPD, chronic cough syndrome, Acquired blindness of both eyes, GERD, DMI, LUZMA, BPH, PAD, CAD, HTN. Patient presents to the ER for concerns of anaphylaxis reaction following taking Tussin with codeine (which he has been on for years) at around 1999. He also states that he has been feeling ill for the past few days with cough, fevers, malaise, with production of gaitan colored sputum. Following taking his Tussin, his reports that he had some shortness of breath and then started to feel itchy, he went up to go to the bathroom and she noticed that he had a rash starting in his armpits and arms. The rash was noted in his bilateral groin folds as well that tracked down his legs. They report that he then started having facial itching with redness and swelling to eye lids, lips, and ears bilaterally. EMS was called, he was reported hypoxic on arrival and hypotensive. He was given Benadryl and IM epinephrine in route. In the ER on arrival - ER physician reports severe swelling of his face to include eyelids, lips, and ears and associated wheels with erythematous rash to arms that was raised and itching. He received IV fluids and 2ml of IV epinephrine for hypotension, he was also given Famotidine. Labs were notable for hyperkalemia to 6.9, hyponatremia, NITIN, and lactate of 5. PCT was noted at 6.22. Hyperkalemia was treated with albuterol, epi, insulin and D10. Hospitalist was consulted for admission as well as ICU for continued evaluation and monitoring for relapse. Patient was evaluated in B4 in the ER, where he is accompanied by his . Further review of above was he has been ill and febrile for the past 3-5 days with progressing cough and sputum production. They report only new medication has been Plavix that was added in March and did have previous angioedema episode a few years back after he was on an MAGUI for years. They have not changed pha rmacies and to their knowledge, none of these medications have been changed to generic or vs. versa. He had cereal for breakfast and lunch with mild, and no change to milk, and he was not outside today. The patient reports no pain or burning with the rash but mostly itching to underarms and face. He did not feel any pain or ulcerations in his mouth or tongue, did not feel as his tongue was swelling up or any effect to his throat or voice. CODE: FULL Allergies Allergy/AdvReac Type Severity Reaction Status Date / Time lisinopril Allergy Severe " TONGUE Verified 05/20/25 11:16 SWELLS"--ANGIOEDEMA lorazepam AdvReac Intermediate Hallucinati Verified 05/20/25 11:16 ons Home Medications Medication Instructions Recorded Confirmed Type lactobacillus combination no.4 3 3,000 mmu cells PO QAM 08/06/18 06/23/25 History billion cell capsule (Probiotic) aspirin 81 mg tablet,delayed 81 mg PO QAM 06/09/19 06/23/25 History release glucosamine sulfate 500 mg tablet 500 mg PO QDL 07/05/19 06/23/25 History (Glucosamine) ferrous sulfate 325 mg (65 mg 325 mg PO BID 03/25/21 05/20/25 History iron) tablet fexofenadine 180 mg tablet 180 mg PO QAM 08/28/22 06/23/25 History ([facility] Allergy) levothyroxine 175 mcg tablet 175 mcg PO QAM #90 tabs 11/06/23 06/23/25 Rx jxvyxhp-vpuntskgkvgxl-tlpivozl 250 1 tab PO Q6H PRN Migraine Headache 01/08/24 05/20/25 History mg-250 mg-65 mg tablet (Excedrin Migraine) BiPap Machine #1 ea 05/29/24 05/20/25 Rx atorvastatin 80 mg tablet 80 mg PO HS #90 tabs 07/08/24 06/23/25 Rx pantoprazole 40 mg tablet,delayed 40 mg PO BID #180 tabs 07/21/24 06/23/25 Rx release (Protonix) fluticasone fur. 100 mcg-umeclid 1 inh inhalation QAM 90 days #90 09/08/24 06/23/25 Rx 62.5 mcg-vilant 25 mcg puffs inhalat.powder (Trelegy Ellipta) metoclopramide HCl 10 mg tablet 10 mg PO QID #120 tabs 09/22/24 06/23/25 Rx (Reglan) bumetanide 1 mg tablet 1 mg PO BID #180 tabs 09/29/24 06/23/25 Rx famotidine 20 mg tablet 20 mg PO BID 11/06/24 06/23/25 History insulin aspart U-100 100 unit/mL 0 sliding scale dose subcut UD 11/06/24 05/20/25 History (3 mL) subcutaneous pen (Novolog FlexPen U-100 Insulin aspart) promethazine 25 mg tablet 25 mg PO Q6H PRN n/v 11/06/24 05/20/25 History montelukast 10 mg tablet 10 mg PO HS 11/24/24 06/23/25 History albuterol sulfate 90 mcg/actuation 2 puff inhalation Q4H PRN 01/12/25 06/23/25 Rx aerosol inhaler Shortness Of Breath #8.5 grams acetaminophen 325 mg tablet 325 mg PO Q6H PRN PAIN/FEVER 01/13/25 06/23/25 History (Tylenol) sennosides 8.6 mg tablet (senna) 8.6 mg PO BID 01/13/25 06/23/25 History sodium chloride 1,000 mg soluble 1,000 - 2,000 mg PO QID 01/13/25 06/23/25 History tablet ondansetron HCl 8 mg tablet 8 mg PO TID PRN nausea and 03/04/25 06/23/25 Rx vomiting #30 tabs hydrocodone-homatropine 5 mg-1.5 1 tab PO BID PRN cough #60 tabs 03/23/25 06/23/25 Rx mg tablet magnesium oxide 400 mg PO DAILY 03/31/25 06/23/25 History amlodipine 2.5 mg tablet 2.5 mg PO QAM #90 tabs 04/06/25 06/23/25 Rx famotidine 40 mg tablet 40 mg PO HS 04/13/25 06/23/25 History levalbuterol HCl 0.63 mg/3 mL 0.63 mg (3 mL) inhalation Q6H PRN 04/13/25 06/23/25 Rx solution for nebulization shortness of breath or wheezing #360 mL atenolol 50 mg tablet (Tenormin) 50 mg PO BID #180 tabs 05/04/25 06/23/25 Rx isosorbide mononitrate 30 mg 30 mg PO QAM #90 tabs 05/04/25 06/23/25 Rx tablet,extended release 24 hr losartan 100 mg tablet 100 mg PO QAM #90 tabs 05/04/25 06/23/25 Rx nortriptyline 25 mg capsule 50 mg (2 x 25 mg) PO HS #180 caps 05/04/25 06/23/25 Rx tamsulosin 0.4 mg capsule (Flomax) 0.4 mg PO QPM #90 caps 05/07/25 06/23/25 Rx sucralfate 1 gram tablet 1 g PO ACHS 05/11/25 05/20/25 History insulin degludec 100 unit/mL (3 30 unit (0.3 mL) subcut BID #0 mL 05/13/25 06/23/25 Rx mL) subcutaneous pen (Tresiba FlexTouch U-100 insulin) clopidogrel 75 mg tablet 75 mg PO DAILY #30 tabs 06/01/25 06/23/25 Rx folic acid 1 mg tablet 1 mg PO BID #180 tabs 06/02/25 Rx oxycodone-acetaminophen 5 mg-325 1 - 2 tab PO DAILY PRN Pain 30 06/10/25 06/23/25 Rx mg tablet (Percocet) days #60 tabs dutasteride 0.5 mg capsule 0.5 mg PO DAILY #90 caps 06/19/25 Rx Patient History Medical History Chronic hyponatremia Chronic headache Dysphagia History of recent pneumonia 03/31/25 (admitted with pneumonia and TIA) per pt has had pneumonia 3x this year--questioning if pt has been having aspiration pneumonia--reason for scheduled EGD, has been having some coughing still, nick in am History of TIA (transient ischemic attack) 03/31/2025--no deficits--unknown cause, did have low sodium at the time and diagnosed with pneumonia as well--was just started on plavix afterwards--follows with Dr. Espino with [facility] History of trigger finger release bilat hands CKD (chronic kidney disease) follows with Dr. Neves Neurogenic bladder Edema BLE's History of COVID-2022 Hypothyroidism Acquired solitary kidney pt has two kidneys, denies COPD (chronic obstructive pulmonary disease) Gastroparesis Chronic cough Depression History of pneumonia [facility] Mitral regurgitation follows with Dr. Greenfield Acquired blindness of both eyes Hx of sepsis approx 2019 from failed root canal Hx of gastric ulcer Hx of angioedema no known cause Unstable angina stable at present History of stroke 2013 > slight cognitive issues since, helps with medical things LUZMA (obstructive sleep apnea) bipap GERD (gastroesophageal reflux disease) Family history of colon cancer DM type 1 (diabetes mellitus, type 1) History of angiography Premature ventricular beats History of subarachnoid hemorrhage 2013; memory/cognitive deficits (reports total of 3 strokes but only known event was in 2013 -- remaining strokes were incidental findings) CAD (coronary artery disease), [place] coronary artery PAD (peripheral artery disease) BPH (benign prostatic hyperplasia) Chronic diastolic CHF (congestive heart failure) pt unable to verify Migraine Microcytic anemia hx Hyperlipidemia Hypertension Ischemic colitis Over 10 years ago (before 2007) Asthma uses res inh few times per week per pt Surgical History Hx of surgical procedure I&D left submandibular and floor of the mouth History of carpal tunnel release right History of esophagogastroduodenoscopy (EGD) Difficult airway for intubation reports he was told he was a difficult intubation after rectal abscess surgery at [facility] [place]. says he has been intubated since then without issues; denies problems prior to that procedure, as well. History of vasectomy History of tonsillectomy and adenoidectomy History of hand surgery Hand Incision Tendon Sheath of a Finger History of rectal abscess I&D History of transurethral resection of prostate History of appendectomy History of eye surgery multiple History of ventral hernia repair H/O colonoscopy recent 02/2025 @ [place] Family History Mother Hypertension Grandfather (Paternal) Colon cancer Prostate cancer Brother Brain cancer Diabetes Bone cancer Kidney disease Lung cancer Son Diabetes Lung cancer Father Hemorrhagic stroke Hypertension Diabetes Heart disease Other Breast cancer No family history of adverse response to anesthesia Testicular cancer Denies family history of Ovarian cancer Myocardial infarction Social History Smoking Status: Former smoker Tobacco Type: Cigarettes Age Started Using Tobacco: 16; Age Quit Using Tobacco: 49; packs per day: 1.5; Second Hand Exposure: No; Do You Dip or Chew Tobacco: No; Hx Alcohol Use: Yes Alcohol type: hard liquor Alcohol Intake Frequency: Monthly or Less Hx Substance Use: No Preferred Language: Irish Communication Ability: Effective Communication Ability Comment: pt is blind-- signs consents Communication Tools: Other Visual Impairment: No Limitations Hearing Ability: Hard of Hearing Larry Car Operator Required: No Beliefs That Will Affect Care: None marital status: Current Living Situation: Spouse current occupational status: disabled 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 How many Children do You have: 2 Feels Safe at Home: Yes Childhood Exposure to Second-Hand Smoke: Yes Diet: regular Diet Comment: regular Dental Care, Regularly: Yes Physical Activity Frequency: Does not Exercise Seatbelt Use: always Sunscreen Use: Yes Assistive Devices: Cane Review of Systems Review of Systems: REVIEW OF SYSTEMS: as per HPI Physical Exam Physical Exam: PHYSICAL EXAM: General: awake, alert, no apparent distress Head: Normocephalic, atraumatic ENT: eyelids swollen, no pharyngeal exudate or uveitis, mucous membranes moist Neuro: AAO x 3, speech clear and appropriate, strength intact bilaterally 5/5, sensation intact and equal all extremities, no pronator drift Chest: equal rise and fall of the chest, no accessory muscle use, no heaves or thrills, scattered rhonchi in bases, mild expiratory wheeze, no stridor Cardiac: Regular rate and rhythm, telemetry reviewed- NSR, skin warm dry, cap refill <3 seconds, peripheral pulses +2 no JVD, no murmur, no edema GI: NABS x 4 quadrants, soft, nontender to palpation, no rebound, guarding or tenderness, noted hernia : Spontaneously voiding, no pain, no CVA tenderness, Psych: Normal mood and affect Skin: raised now salmon colored erythematous rash to forehead, eyelids, ears, and around mouth, sparring cheeks, no involvement of tongue, mouth, or gums, bilateral erythematous rash with obvious borders to armpits inside of arms and back of arms, mostly circumferential to forearms, RT>LT, neck with erythematous trupti that ends just below sternal notch. Bilateral groin erythematous rash with distinct border and some macular areas that are separate from the others, involves some of the inner thigh and quad. Soles of the feet and palms of the hands are sparred. Results & Data Results & Data Vital Signs (Past 12 Hours) Vital Signs Temp Pulse Pulse Resp BP BP Pulse Ox 06/23/25 04:15 95 H 32 H 132/62 94 06/23/25 04:15 95 H 32 H 95 06/23/25 04:15 133/62 06/23/25 04:15 133/62 06/23/25 04:15 133/62 06/23/25 04:12 96 H 28 H 95 06/23/25 04:10 147/69 H 06/23/25 04:10 147/69 H 06/23/25 04:10 147/69 H 06/23/25 04:10 147/69 H 06/23/25 04:10 147/69 H 06/23/25 04:09 101 H 31 H 96 06/23/25 04:05 123/60 06/23/25 04:05 123/60 06/23/25 04:01 94/74 L 06/23/25 03:55 136/64 06/23/25 03:51 96 H 22 95 06/23/25 03:50 130/74 06/23/25 03:50 130/74 06/23/25 03:50 130/74 06/23/25 03:50 130/74 06/23/25 03:50 97 H 32 H 97 06/23/25 03:50 37.0 C 97 H 32 H 140/77 97 06/23/25 03:50 06/23/25 03:50 37.0 C 97 H 32 H 140/77 97 06/23/25 03:50 06/23/25 03:46 133/71 06/23/25 03:45 97 H 33 H 96 06/23/25 03:40 137/67 06/23/25 03:35 136/63 06/23/25 03:33 97 H 33 H 97 09/02/25 03:30 139/65 06/23/25 03:30 139/65 06/23/25 03:25 140/77 06/23/25 03:25 140/77 06/23/25 03:14 165/77 H 06/23/25 03:14 165/77 H 06/23/25 03:09 100 H 30 H 92 06/23/25 03:05 129/63 06/23/25 03:05 129/63 06/23/25 03:03 100 H O2 Del Method O2 Flow Rate 06/23/25 04:15 Nasal Cannula 5 06/23/25 04:15 06/23/25 04:15 06/23/25 04:15 06/23/25 04:15 06/23/25 04:12 06/23/25 04:10 06/23/25 04:10 06/23/25 04:10 06/23/25 04:10 06/23/25 04:10 06/23/25 04:09 06/23/25 04:05 06/23/25 04:05 06/23/25 04:01 06/23/25 03:55 06/23/25 03:51 06/23/25 03:50 06/23/25 03:50 06/23/25 03:50 06/23/25 03:50 06/23/25 03:50 Nasal Cannula 6 06/23/25 03:50 Nasal Cannula 6 06/23/25 03:50 Nasal Cannula 6 06/23/25 03:50 Nasal Cannula 6 06/23/25 03:50 Nasal Cannula 6 06/23/25 03:46 06/23/25 03:45 06/23/25 03:40 06/23/25 03:35 06/23/25 03:33 06/23/25 03:30 06/23/25 03:30 06/23/25 03:25 06/23/25 03:25 06/23/25 03:14 06/23/25 03:14 06/23/25 03:09 06/23/25 03:05 06/23/25 03:05 06/23/25 03:03 Laboratory Results Abnormal lab results 06/23/25 06/23/25 Range/Units 03:05 03:48 WBC 3.47 L (4.8-10.8) K/ul RBC 4.60 L (4.70-6.10) M/uL Lymphocytes # (Manual) 0.80 L (1.2-3.4) K/uL Metamyelocytes # (Man) 0.07 H (0-0) K/uL Sodium 124 L (136-145) mmol/L Potassium 6.9 H* (3.5-5.1) mmol/L Chloride 93 L (98-107) mmol/L BUN 26 H (6-23) mg/dl Creatinine 1.73 H (0.6-1.4) mg/dl Glucose 218 H (70-99(Fasting)) mg/dl Lactate 5.0 H* (0.4-2.0) mmol/L Calcium 8.5 L (8.6-10.3) mg/dl Total Bilirubin 1.4 H (0.2-1.0) mg/dl Procalcitonin 6.22 H (0-0.5) ng/ml Diagnostic Findings Chest X-Ray 06/23/25 03:10 EXAM: XR chest 1V portable CLINICAL HISTORY: sob TECHNIQUE: An X-ray image of the chest is obtained in AP projection. COMPARISON: CR on 05/11/2025. FINDINGS: Pulmonary Parenchyma: Bilateral lower lung lobes alveolar opacities. No pulmonary nodules are identified. No evidence of pleural effusion or pleural thickening. Heart and Mediastinum: Heart size and shape are normal. No mediastinal widening or masses. No hilar or mediastinal lymphadenopathy. Bony Thorax: Bony thorax appears intact without fractures or deformities. Soft Tissues: Soft tissues overlying the chest wall are unremarkable. Chest wall leads and tube overlying the right upper chest wall are noted. IMPRESSION: -Bilateral lower lung lobes alveolar opacities, suggesting infective / inflammtory process.Clinical correlation and follow-up are advised.(new) Electronically signed by Adalberto Mayorga 06-23-2025 04:52 AM Medications Administered Discontinued Medications Albuterol (Albut/Ipratrop 3mg/0.5mg Neb 3 Ml Vial) Confirm Administered Dose 3 ml .ROUTE .STK-MED ONE Stop: 06/23/25 03:06 Last Admin: 06/23/25 03:18 Dose: Not Given Documented By: ANANDA Albuterol (Albut/Ipratrop 3mg/0.5mg Neb 3 Ml Vial) 3 ml NEB NOW STA; Protocol Stop: 06/23/25 03:09 Last Admin: 06/23/25 03:16 Dose: 3 ml Documented By: ANANDA Dextrose (Dextrose 10% 250 Ml Bag) 250 ml IV NOW Stop: 06/23/25 04:16 Last Admin: 06/23/25 04:39 Dose: 250 ml Documented By: ANANDA Epinephrine HCl (Epinephrine Inj 1 Mg/Ml Amp) Confirm Administered Dose 1 mg .ROUTE .STK-MED ONE Stop: 06/23/25 03:09 Last Admin: 06/23/25 03:18 Dose: Not Given Documented By: ANANDA Epinephrine HCl (Epinephrine 1.5" Ndl 0.1 Mg/Ml Syr) Confirm Administered Dose 1 mg IV .[facility] ONE Stop: 06/23/25 03:11 Last Admin: 06/23/25 04:05 Dose: 1 mg Documented By: ANANDA Famotidine (Pepcid 20mg Iv Push) 20 mg in 5 mls @ 2.5 mls/min IV NOW STA Stop: 06/23/25 03:09 Last Admin: 06/23/25 03:15 Dose: 2.5 mls/min Documented By: ANANDA Sodium Chloride (Nss) 250 mls @ 999 mls/hr IV .Q16M ONE Stop: 06/23/25 03:31 Last Infusion: 06/23/25 05:04 Dose: Infused Documented By: Admin: 06/23/25 03:19 Dose: 999 mls/hr Documented By: ANANDA Ampicillin Sodium/Sulbactam Sodium (Unasyn) 3,000 mg in 100 mls @ 200 mls/hr IV NOW STA Stop: 06/23/25 04:42 Last Infusion: 06/23/25 05:39 Dose: Infused Documented By: Admin: 06/23/25 04:37 Dose: 200 mls/hr Documented By: ANANDA Calcium Chloride 1,000 mg/ (Dextrose) 60 mls @ 240 mls/hr IV NOW STA Stop: 06/23/25 04:29 Last Infusion: 06/23/25 05:59 Dose: Infused Documented By: Admin: 06/23/25 05:32 Dose: 240 mls/hr Documented By: AMALIA Sodium Chloride (Nss) 1,000 mls @ 999 mls/hr IV .Q1H1M ONE Stop: 06/23/25 05:45 Last Admin: 06/23/25 05:04 Dose: 999 mls/hr Documented By: ANANDA Sodium Chloride (Nss) 250 mls @ 999 mls/hr IV .Q16M ONE Stop: 06/23/25 05:01 Last Infusion: 06/23/25 06:00 Dose: Infused Documented By: Admin: 06/23/25 04:46 Dose: 999 mls/hr Documented By: ANANDA Insulin Human Regular (Novolin-R Insulin Per Unit Charge) 5 units IV NOW STA Stop: 06/23/25 04:18 Last Admin: 06/23/25 04:42 Dose: 5 units Documented By: ANANDA Co-signed By: MELVINA ECG Additional Comments: Normal sinus rhythm Normal ECG When compared with ECG [id number] 14:23, No significant change was found Coding Level of Care Code 74323 CRITICAL CARE 1ST 30-74M Diagnoses Recurrent pneumonia J18.9 Anaphylactoid reaction T78.2XXA Rash R21 Hyperkalemia E87.5 Shock R57.9
[2025-06-23 06:21] LABS: Appearance Urine Clear (Clear); Bacteria Urine Automated None Seen (None Seen); Cast Urine Automated 0-2 /lpf (0-2); Epithelial Cell Urine Auto 0-2 /hpf (0-2); Glucose Urine UA 2+ (Negative); RBC Urine Automated 0-2 /hpf (0-2); WBC Urine Automated 0-5 /hpf (0-5)
[2025-06-23 06:27] LABS: Potassium 5.5 mmol/L (3.5-5.1)
[2025-06-23] MEDS ORDERED: STAT IV Infusion **Titration per Protocol STA (06:29)
[2025-06-23] MEDS ORDERED: EPINEPHrine/NSS 4 MG/254 ML BAG IV PRN (06:30)
[2025-06-23 06:41] LABS: Thyroid Stimulating Hormone 0.186 uIu/ml (0.300-4.500)
[2025-06-23] MEDS ORDERED: ALBUTEROL HFA 8 GM INHALER INH PRN (07:12)
[2025-06-23] MEDS: PLASMA-LYTE A 1,000 ML IV SCH (07:43)
[2025-06-23] MEDS: ONDANSETRON INJ 2 MG/ML 2 ML VIAL IV PRN (07:45)
[2025-06-23] MEDS: diphenhydrAMINE 50 MG/ML VIAL IV SCH (07:45)
[2025-06-23] MEDS: UMECLIDINIUM/VILANTEROL 62.5/25MCG 7 PUFFS/INHALER INH SCH (07:57)
[2025-06-23] MEDS: FLUTICASONE FUROATE 100MCG 14 PUFFS/INHALER INH SCH (07:57)
[2025-06-23 08:04] LABS: Anion Gap 11.0 (3-11); Blood Urea Nitrogen 28.0 mg/dl (6-23); Calcium 8.5 mg/dl (8.6-10.3); Carbon Dioxide 19.0 mmol/L (21-32); Chloride 97.0 mmol/L (98-107); Creatinine Clr Calc Pharmacy 51.4 ml/min; Glucose 276.0 mg/dl (70-99(Fasting)); Potassium 5.5 mmol/L (3.5-5.1); Sodium 127.0 mmol/L (136-145)
[2025-06-23] MEDS: LEVOTHYROXINE SODIUM 175 MCG TABLET PO SCH (08:05)
[2025-06-23] MEDS: METOCLOPRAMIDE HCL 10 MG TABLET PO SCH (08:05)
[2025-06-23] MEDS: AZITHROMYCIN 250 MG TAB PO SCH (08:06)
[2025-06-23] MEDS: ASPIRIN 81 MG ECTAB PO SCH (08:06)
[2025-06-23] MEDS: SENNA 8.6 MG TAB PO SCH (08:08)
[2025-06-23] MEDS: LEVALBUTEROL HCL 0.63 MG/3 ML NEB INH PRN (08:16)
[2025-06-23] MEDS: FEXOFENADINE HCL 180 MG TAB PO SCH (08:41)
[2025-06-23] MEDS: SODIUM CHLORIDE 1 GM TABLET PO SCH ×2 (08:41→12:07)
[2025-06-23] MEDS ORDERED: NON-FORMULARY MEDICATION (Fluticasone-Umeclidin-Vilanter [Trelegy Ellipta] 100-62.5-25 mcg INH SCH (09:00)
[2025-06-23] MEDS: ACETAMINOPHEN 325 MG TAB PO PRN (10:21)
[2025-06-23] MEDS: cefTRIAXone SODIUM 2,000 MG/50 ML BAG IV SCH (10:21)
[2025-06-23] MEDS ORDERED: PAMIDRONATE DISODIUM 60 MG in SODIUM CHLORIDE 0.9% 1,000 ML IV ONE (10:21)
[2025-06-23] MEDS: SODIUM BICARB 8.4% INJ 50 MEQ/50 ML SYR IV STA (10:46)
[2025-06-23] MEDS: CALCIUM GLUCONATE 1,000 MG/60 ML BAG IV SCH (11:00)
[2025-06-23] MEDS: SODIUM ZIRCONIUM CYCLOSILICATE 10 GM PACKET PO STA (11:00)
--- NOTE | 2025-06-23 11:46 | Electrocardiogram Report ---
Test Reason : Blood Pressure : */* mmHG Vent. Rate : 100 BPM Atrial Rate : 100 BPM P-R Int : 150 ms QRS Dur : 80 ms QT Int : 332 ms P-R-T Axes : 53 32 48 degrees QTcB Int : 428 ms Normal sinus rhythm Normal ECG When compared with ECG of 31-Mar-2025 14:23, No significant change was found Confirmed by Jasen Larkin ([id number]) on 06/23/2025 11:45:48 AM Referred By: REFERRED SELF Confirmed By: Jasen Larkin
[2025-06-23] MEDS ORDERED: GLUCOSE 40% GEL 15 GM TUBE PO PRN (11:54)
[2025-06-23] MEDS ORDERED: GLUCOSE 10 TAB/TUBE PO PRN (11:54)
[2025-06-23] MEDS ORDERED: GLUCAGON FOR INJ 1 MG VIAL SQ PRN (11:54)
[2025-06-23] MEDS: INSULIN ASPART PER UNIT CHARGE SC SCH (13:01)
[2025-06-23] MEDS: FAMOTIDINE 20MG IV PUSH 20 MG/5 ML SYR IV SCH (14:25)
--- NOTE | 2025-06-23 14:33 | Hospitalist Progress Note ---
Date of Service June 23, 2025 Assessment & Plan (1) Rash: (2) Multifocal pneumonia: (3) Hyponatremia: (4) CAD (coronary atherosclerotic disease): (5) Diabetes mellitus type 1, uncontrolled: (6) COPD (chronic obstructive pulmonary disease): (7) Acquired blindness: Plan 64yo male with multiple medical comorbidities presenting with severe allergic reaction - rash with anaphylaxis. Etiology unclear. Possible rash secondary to Plavix, possible infectious. #Rash/Anaphylaxis - diffuse, symmetrical, erythematous, pruritic, urticarial rash - sparing of palms/soles/mucus membranes. Inciting event unknown. Patient remains hemodynamically stable following administration of epinephrine IM and IV. No airway involvement. No desquamation or blistering -Admit to MICU -Check eosinophil level, tryptase -Monitor rash -Treatment with Solumedrol 40mg IV BID -Pepcid 20mg IV BID and 40mg po qHS -Benadryl 50mg IV q 6 hours -Continue Fexofenadine -Continue Montelukast -Will hold antihypertensives for now and continue to monitor BP response (Amlodipine, Atenolol, Bumex, Isosorbide mononitrate, Losartan #Pneumonia - CXR suggestive of bilateral lower lobe PNA. . Respiratory biofire panel is negative, MRSA nares negative . -Follow blood cultures -Empiric coverage for now with Ceftriaxone and Azithromycin - #NITIN/Hyperkalemia- patient with NITIN on CKD. Cr today=1.73, increased from most recently 1.34. Hyperkalemia with K=6.9 s/p treatment with IVF, Insulin/D50, Calcium gluconate and Albuterol -Continue hydration -Avoid nephrotoxic medications -Renal dosing where needed #Hyponatremia - chronic. Patient is on salt tablets daily. Na ftdjt=390, slightly lower than baseline -Continue hydration -Continue salt tablets #DM -Glycemic management per MICU #COPD -Continue Trelegy or formulary equivalent -Xopenex PRN -Supplemental O2 as needed LUZMA-BiPAP at night #BPH -Continue Flomax #CAD/possible TIA -Continue ASA -Holding Plavix, possibly contributing to rash -Continue Atorvastatin Admission and Anticipated Discharge Date Admission Date: June 23, 2025 Subjective pt is awake and alert, rash is receeding discussed case with ICU attending Physical Exam Physical Exam: rash is maculopapular confluent and seems to be less red than described lungs are coarse but non focal Results & Data Results & Data Vital Signs (Past 12 Hours) Vital Signs Temp Pulse Pulse Resp BP BP Pulse Ox 06/23/25 10:00 143/73 H 06/23/25 09:42 100.2 F H 86 29 H 94 06/23/25 09:21 89 29 H 94 06/23/25 09:00 120/60 06/23/25 09:00 120/60 06/23/25 08:57 90 33 H 95 06/23/25 08:19 95 H 30 H 93 06/23/25 08:09 94 H 29 H 95 06/23/25 08:01 102/82 06/23/25 07:54 92 H 32 H 96 06/23/25 07:39 30 H 116/66 96 06/23/25 07:36 87 32 H 95 06/23/25 07:32 98.4 F 06/23/25 07:24 06/23/25 07:19 116/66 06/23/25 07:19 116/66 06/23/25 07:19 116/66 06/23/25 07:15 88 34 H 94 06/23/25 06:27 98.2 F 84 28 H 132/68 96 06/23/25 06:15 86 30 H 165/80 H 95 06/23/25 06:00 80 31 H 186/63 H 98 06/23/25 05:45 82 28 H 186/63 H 95 06/23/25 05:30 83 26 H 157/87 H 97 06/23/25 05:15 84 29 H 126/78 96 06/23/25 05:00 85 29 H 123/66 95 06/23/25 04:45 88 30 H 146/76 H 94 06/23/25 04:30 89 30 H 124/61 94 06/23/25 04:15 95 H 32 H 132/62 94 06/23/25 04:15 95 H 32 H 95 06/23/25 04:15 133/62 06/23/25 04:15 133/62 06/23/25 04:15 133/62 06/23/25 04:12 96 H 28 H 95 06/23/25 04:10 147/69 H 06/23/25 04:10 147/69 H 06/23/25 04:10 147/69 H 06/23/25 04:10 147/69 H 06/23/25 04:10 147/69 H 06/23/25 04:09 101 H 31 H 96 06/23/25 04:05 123/60 06/23/25 04:05 123/60 06/23/25 04:01 94/74 L 06/23/25 03:55 136/64 06/23/25 03:51 96 H 22 95 06/23/25 03:50 130/74 06/23/25 03:50 130/74 06/23/25 03:50 130/74 06/23/25 03:50 130/74 06/23/25 03:50 97 H 32 H 97 06/23/25 03:50 98.6 F 97 H 32 H 140/77 97 06/23/25 03:50 06/23/25 03:50 98.6 F 97 H 32 H 140/77 97 06/23/25 03:50 06/23/25 03:46 133/71 06/23/25 03:45 97 H 33 H 96 06/23/25 03:40 137/67 06/23/25 03:35 136/63 06/23/25 03:33 97 H 33 H 97 06/23/25 03:30 139/65 06/23/25 03:30 139/65 06/23/25 03:25 140/77 06/23/25 03:25 140/77 06/23/25 03:14 165/77 H 06/23/25 03:14 165/77 H 06/23/25 03:09 100 H 30 H 92 06/23/25 03:05 129/63 06/23/25 03:05 129/63 06/23/25 03:03 100 H O2 Del Method O2 Flow Rate 06/23/25 10:00 06/23/25 09:42 Nasal Cannula 4 06/23/25 09:21 06/23/25 09:00 06/23/25 09:00 06/23/25 08:57 06/23/25 08:19 Nasal Cannula 6 06/23/25 08:09 06/23/25 08:01 06/23/25 07:54 06/23/25 07:39 Nasal Cannula 6 06/23/25 07:36 06/23/25 07:32 06/23/25 07:24 Nasal Cannula 6 06/23/25 07:19 06/23/25 07:19 06/23/25 07:19 06/23/25 07:15 06/23/25 06:27 Nasal Cannula 6 06/23/25 06:15 Nasal Cannula 6 06/23/25 06:00 Nasal Cannula 6 06/23/25 05:45 Nasal Cannula 6 06/23/25 05:30 Nasal Cannula 6 06/23/25 05:15 Nasal Cannula 6 06/23/25 05:00 Nasal Cannula 5 06/23/25 04:45 Nasal Cannula 5 06/23/25 04:30 Nasal Cannula 5 06/23/25 04:15 Nasal Cannula 5 06/23/25 04:15 06/23/25 04:15 06/23/25 04:15 06/23/25 04:15 06/23/25 04:12 06/23/25 04:10 06/23/25 04:10 06/23/25 04:10 06/23/25 04:10 06/23/25 04:10 06/23/25 04:09 06/23/25 04:05 06/23/25 04:05 06/23/25 04:01 06/23/25 03:55 06/23/25 03:51 06/23/25 03:50 06/23/25 03:50 06/23/25 03:50 06/23/25 03:50 06/23/25 03:50 Nasal Cannula 6 06/23/25 03:50 Nasal Cannula 6 06/23/25 03:50 Nasal Cannula 6 06/23/25 03:50 Nasal Cannula 6 06/23/25 03:50 Nasal Cannula 6 06/23/25 03:46 06/23/25 03:45 06/23/25 03:40 06/23/25 03:35 06/23/25 03:33 06/23/25 03:30 06/23/25 03:30 06/23/25 03:25 06/23/25 03:25 06/23/25 03:14 06/23/25 03:14 06/23/25 03:09 06/23/25 03:05 06/23/25 03:05 06/23/25 03:03 PG Care Time/CCT Total # of Minutes Spent Total Time Spent with Patient: Total time spent is greater than 50% in coordination of care (as documented) at patient's floor/unit and/or counseling patient: Coding Level of Care Code None Diagnoses Rash R21 Multifocal pneumonia J18.9 Hyponatremia E87.1 CAD (coronary atherosclerotic disease) I25.10 Uncontrolled type 1 diabetes mellitus with hyperglycemia E10.65 Chronic bronchitis, unspecified chronic bronchitis type J44.9 COPD type: unspecified COPD Acquired blindness H54.7 (6) COPD (chronic obstructive pulmonary disease) COPD type: unspecified COPD Qualified Code(s): J44.9 - Chronic obstructive pulmonary disease, unspecified
[2025-06-23 17:06] LABS: Anion Gap 11.0 (3-11); Blood Urea Nitrogen 34.0 mg/dl (6-23); Calcium 8.7 mg/dl (8.6-10.3); Carbon Dioxide 20.0 mmol/L (21-32); Chloride 96.0 mmol/L (98-107); Creatinine Clr Calc Pharmacy 55.4 ml/min; Glucose 307.0 mg/dl (70-99(Fasting)); Potassium 5.7 mmol/L (3.5-5.1); Sodium 127.0 mmol/L (136-145)
[2025-06-23] MEDS: ICU ELECTROLYTE REPLACEMENT PROTOCOL SCH (17:34)
[2025-06-23] MEDS: NORTRIPTYLINE HCL 25 MG CAP PO SCH (20:16)
[2025-06-23] MEDS: ATORVASTATIN 40 MG TAB PO SCH (20:16)
[2025-06-23] MEDS: MONTELUKAST SODIUM 10 MG TABLET PO SCH (20:17)
[2025-06-23 21:31] LABS: A calco-baum cmplx NotReported Not Detected (NotDetected); Bact fragilis Not Reported Not Detected (NotDetected); Blood Culture Id Panel See PCR Comment (NotDetected); C auris Not Reported Not Detected (NotDetected); Calbicans Not Reported Not Detected (NotDetected); Candida glabrata Not Reported Not Detected (NotDetected); Candida krusei Not Reported Not Detected (NotDetected); Cneoformans/gatti Not Reported Not Detected (NotDetected); Cparapsilosis Not Reported Not Detected (NotDetected); Ctropicalis Not Reported Not Detected (NotDetected); E cloacae compx Not Reported Not Detected (NotDetected); Efaecalis Not Reported Not Detected (NotDetected); Efaecium Not Reported Not Detected (NotDetected); Enterobacterales Not Reported Not Detected (NotDetected); Escherichia coli Not Reported Not Detected (NotDetected); H influenzae Not Reported Not Detected (NotDetected); K aerogenes Not Reported Not Detected (NotDetected); Koxytoca Not Reported Not Detected (NotDetected); Kpneumoniae grp Not Reported Not Detected (NotDetected); Lmonocyt Not Reported Not Detected (NotDetected); N meningitidis Not Reported Not Detected (NotDetected); P aeruginosa Not Reported Not Detected (NotDetected); Proteus spp Not Reported Not Detected (NotDetected); Salmonella spp Not Reported Not Detected (NotDetected); Staph lugdunensis Not Reported Not Detected (NotDetected); Staph spp. Not Reported DETECTED (NotDetected); Staphaureus Not Reported DETECTED (NotDetected); Staphepi Not Reported Not Detected (NotDetected); Staphylococcus spp. DETECTED (NotDetected); Stenmaltophilia Not Reported Not Detected (NotDetected); Strep agal(GrpB) Not Reported Not Detected (NotDetected); Strep pneum Not Reported Not Detected (NotDetected); Strep pyog (GrpA) Not Reported Not Detected (NotDetected); Strep spp Not Reported Not Detected (NotDetected); mecAC+MREJ Resistant Gene MRSA Not Detected (NotDetected)
[2025-06-23 22:13] LABS: Anion Gap 9.0 (3-11); Blood Urea Nitrogen 36.0 mg/dl (6-23); Calcium 8.5 mg/dl (8.6-10.3); Carbon Dioxide 23.0 mmol/L (21-32); Chloride 94.0 mmol/L (98-107); Creatinine Clr Calc Pharmacy 52.4 ml/min; Glucose 317.0 mg/dl (70-99(Fasting)); Potassium 5.1 mmol/L (3.5-5.1); Sodium 126.0 mmol/L (136-145)
[2025-06-23] MEDS: LANTUS PER UNIT CHARGE SQ STA (22:37)
[2025-06-23] MEDS: ISOSORBIDE MONO EXTENDED REL 30 MG TABCR PO ONE (22:38)
[2025-06-23] MEDS: LABETALOL HCL IV 5 MG/ML 20ML IV STA (22:42)
[2025-06-23] MEDS: LABETALOL HCL IV 5 MG/ML 20ML IV ONE (22:48)
[2025-06-24] MEDS ORDERED: PHARMACY GLYCEMIC MGMT CONSULT PRN (00:29)
[2025-06-24] MEDS: LANTUS PER UNIT CHARGE SQ STA ×2 (00:49→11:29)
[2025-06-24] MEDS: INSULIN ASPART PER UNIT CHARGE SC SCH (00:49)
[2025-06-24] MEDS: PLASMA-LYTE A 1,000 ML IV SCH (01:24)
[2025-06-24 05:01] LABS: Anion Gap 6.0 (3-11); Blood Urea Nitrogen 33.0 mg/dl (6-23); Calcium 8.7 mg/dl (8.6-10.3); Carbon Dioxide 25.0 mmol/L (21-32); Chloride 97.0 mmol/L (98-107); Creatinine Clr Calc Pharmacy 65.6 ml/min; Glucose 277.0 mg/dl (70-99(Fasting)); Magnesium 2.1 mg/dl (1.7-2.4); Potassium 4.7 mmol/L (3.5-5.1); Sodium 128.0 mmol/L (136-145)
[2025-06-24 05:04] LABS: Hematocrit (blood only) 30.3 % (42.0-52.0); Hemoglobin 10.3 g/dl (14.0-18.0); Mean Corpuscular Hemoglobin 31.2 pg (25.0-34.0); Mean Corpuscular Volume 91.8 fL (80.0-100.0); Platelet Count 239 K/uL (130-400); RDW Standard Deviation 43.5 fL (36.4-46.3); Red Blood Count 3.30 M/uL (4.70-6.10); White Blood Count 4.53 K/ul (4.8-10.8)
[2025-06-24 05:07] LABS: Dohle Bodies 1+; Immature Granulocytes # (auto) 0.06 K/uL (0.01-0.20); Immature Granulocytes % (auto) 1.3 %; Toxic Vacuolation 1+
[2025-06-24 07:00] LABS: A calco-baum cmplx NotReported Not Detected (NotDetected); Bact fragilis Not Reported Not Detected (NotDetected); Blood Culture Id Panel PCR Panel Negative (NotDetected); C auris Not Reported Not Detected (NotDetected); Calbicans Not Reported Not Detected (NotDetected); Candida glabrata Not Reported Not Detected (NotDetected); Candida krusei Not Reported Not Detected (NotDetected); Cneoformans/gatti Not Reported Not Detected (NotDetected); Cparapsilosis Not Reported Not Detected (NotDetected); Ctropicalis Not Reported Not Detected (NotDetected); E cloacae compx Not Reported Not Detected (NotDetected); Efaecalis Not Reported Not Detected (NotDetected); Efaecium Not Reported Not Detected (NotDetected); Enterobacterales Not Reported Not Detected (NotDetected); Escherichia coli Not Reported Not Detected (NotDetected); H influenzae Not Reported Not Detected (NotDetected); K aerogenes Not Reported Not Detected (NotDetected); Koxytoca Not Reported Not Detected (NotDetected); Kpneumoniae grp Not Reported Not Detected (NotDetected); Lmonocyt Not Reported Not Detected (NotDetected); N meningitidis Not Reported Not Detected (NotDetected); P aeruginosa Not Reported Not Detected (NotDetected); Proteus spp Not Reported Not Detected (NotDetected); Salmonella spp Not Reported Not Detected (NotDetected); Staph lugdunensis Not Reported Not Detected (NotDetected); Staph spp. Not Reported Not Detected (NotDetected); Staphaureus Not Reported Not Detected (NotDetected); Staphepi Not Reported Not Detected (NotDetected); Stenmaltophilia Not Reported Not Detected (NotDetected); Strep agal(GrpB) Not Reported Not Detected (NotDetected); Strep pneum Not Reported Not Detected (NotDetected); Strep pyog (GrpA) Not Reported Not Detected (NotDetected); Strep spp Not Reported Not Detected (NotDetected)
[2025-06-24] MEDS: ISOSORBIDE MONO EXTENDED REL 30 MG TABCR PO SCH (08:20)
[2025-06-24] MEDS: ATENOLOL 50 MG TABLET PO SCH (08:20)
--- NOTE | 2025-06-24 08:27 | Critical Care Progress Note ---
Date of Service June 24, 2025 Assessment & Plan (1) Recurrent pneumonia: (2) Anaphylactoid reaction: (3) Rash: (4) Hyperkalemia: (5) Shock: Plan Reason Critically Ill: 64 YOM presents for concern of anaphylactic reaction following taking tussin in setting of feeling ill with cough/fevers/malaise for past few days. Patient with shock and skin eruption that is improving following administration of epinephrine, H2, antihistamines, and steroids. To ICU to continue to monitor skin manifestations and hemodynamic support/monitoring for relapse. 24-hour events: Patient is been hemodynamically stable. Skin lesions and rash are markedly improved. No wheezing or shortness of breath Recommendations Neuro -no current issues. Out of bed to chair as tolerated. Cardiac -anaphylactic shock resolved. Transition to oral Benadryl and Pepcid as well as prednisone. Would recommend outpatient allergy immunology evaluation as it is unclear what the precipitating event was and additional testing might be r equired given the severity of his reaction. Lactate clearing Respiratory -aspiration pneumonia. Currently on Rocephin and azithromycin. Complete course of antibiotics. Off oxygen GI -advancing diet as tolerated. Known achalasia. Follow-up with [facility] RENAL/LYTES -mild hyponatremia. Serum creatinine improving. Hyperkalemia resolved. - No acute needs ENDO - glycemic control while on steroids. HEME -mild anemia today with persistent leukopenia. Platelet count stable. Continue to follow. No evidence of acute blood loss no indication for transfusion currently ID - pneumonia- bilateral. Known aspiration events. Undergoing evaluation by GI for achalasia. Continue Rocephin and azithromycin LINES/IV ACCESS - PIV Continue use of these lines DVT PROPHYLAXIS - SCDS, Heparin 5000 units subq q8 DISPO: Okay to transfer to the floor Patient's critical care issues are resolved. Critical care will sign off. The patient is stable to transfer to the floor under the care of the hospitalist Discussed with patient and at bedside. Questions were answered to the best my ability. They expressed understanding and are in agreement with plan as outlined Admission and Anticipated Discharge Date Admission Date: June 23, 2025 Subjective Patient seen and examined. EMR reviewed. Discussed with bedside critical care nurse in multidisciplinary rounds. The patient is doing markedly better. His rash is significantly improved. He is tolerating a diet. His itching is better. No signs of mucosal ulceration. He denies any chest pain or palpitations. He is coughing but not expectorating any phlegm. Overall he feels significantly better and is ready to get out of bed to chair Review of Systems Review of Systems: All systems reviewed & are unremarkable except as noted in Subjective Physical Exam Constitutional: WD/WN, vitals as above Neck: trachea midline, no thyromegaly Respiratory: normal respiratory effort, lungs clear to auscultation Cardiovascular: RRR, no murmur, no edema Gastrointestinal (Abdomen): normal bowel sounds, soft, nontender, no hepatosplenomegaly Musculoskeletal: Extremities: extremities normal to inspection Skin: Rash and hives significantly improved today. No evidence of blister formation or bullae Neurologic: Nonfocal exam Lymphatic: no cervical lymphadenopathy Results & Data Results & Data Vital Signs (Past 12 Hours) Vital Signs Temp Pulse Resp BP Pulse Ox O2 Flow Rate 06/24/25 07:21 180/83 H 06/24/25 07:08 36.4 C L 85 24 97 06/24/25 07:05 36.4 C L 90 21 97 06/24/25 07:00 193/78 H 06/24/25 06:54 36.3 C L 95 H 27 H 92 06/24/25 06:00 36.5 C 87 24 174/74 H 96 06/24/25 05:06 36.5 C 93 H 21 89 L 06/24/25 05:00 171/79 H 06/24/25 04:54 36.4 C L 85 96 06/24/25 04:01 188/77 H 06/24/25 04:00 36.4 C L 79 26 H 95 06/24/25 03:03 36.6 C 88 20 170/66 H 95 06/24/25 02:57 36.6 C 87 21 95 06/24/25 02:00 36.8 C 87 19 162/70 H 94 06/24/25 01:09 37.1 C 94 H 28 H 165/82 H 94 06/24/25 00:51 37.2 C 95 H 23 95 06/24/25 00:37 112/85 06/24/25 00:36 37.3 C 97 H 24 78 L 06/24/25 00:18 37.2 C 84 20 175/73 H 97 06/24/25 00:00 89 06/23/25 23:39 37.4 C 86 21 96 06/23/25 23:11 89 22 96 2 06/23/25 23:09 37.5 C 90 21 179/76 H 97 06/23/25 23:00 89 179/76 H 06/23/25 22:42 88 183/73 H 06/23/25 22:39 37.6 C H 90 22 96 06/23/25 22:33 37.6 C H 88 23 97 06/23/25 22:17 183/73 H 06/23/25 22:17 183/73 H 06/23/25 22:09 37.7 C H 89 29 H 95 06/23/25 22:06 37.7 C H 88 27 H 94 06/23/25 21:33 37.7 C H 89 24 96 06/23/25 21:03 37.7 C H 88 25 H 95 06/23/25 21:00 171/70 H 06/23/25 21:00 171/70 H 06/23/25 21:00 171/70 H 06/23/25 20:54 37.7 C H 89 32 H 95 06/23/25 20:33 37.8 C H 89 27 H 96 Critical Care Results & Data Vital Signs (Past 12 Hours) Vital Signs Temp Pulse Resp BP Pulse Ox O2 Flow Rate 06/24/25 07:21 180/83 H 06/24/25 07:08 36.4 C L 85 24 97 06/24/25 07:05 36.4 C L 90 21 97 06/24/25 07:00 193/78 H 06/24/25 06:54 36.3 C L 95 H 27 H 92 06/24/25 06:00 36.5 C 87 24 174/74 H 96 06/24/25 05:06 36.5 C 93 H 21 89 L 06/24/25 05:00 171/79 H 06/24/25 04:54 36.4 C L 85 96 06/24/25 04:01 188/77 H 06/24/25 04:00 36.4 C L 79 26 H 95 06/24/25 03:03 36.6 C 88 20 170/66 H 95 06/24/25 02:57 36.6 C 87 21 95 06/24/25 02:00 36.8 C 87 19 162/70 H 94 06/24/25 01:09 37.1 C 94 H 28 H 165/82 H 94 06/24/25 00:51 37.2 C 95 H 23 95 06/24/25 00:37 112/85 06/24/25 00:36 37.3 C 97 H 24 78 L 06/24/25 00:18 37.2 C 84 20 175/73 H 97 06/24/25 00:00 89 06/23/25 23:39 37.4 C 86 21 96 06/23/25 23:11 89 22 96 2 06/23/25 23:09 37.5 C 90 21 179/76 H 97 06/23/25 23:00 89 179/76 H 06/23/25 22:42 88 183/73 H 06/23/25 22:39 37.6 C H 90 22 96 06/23/25 22:33 37.6 C H 88 23 97 06/23/25 22:17 183/73 H 06/23/25 22:17 183/73 H 06/23/25 22:09 37.7 C H 89 29 H 95 06/23/25 22:06 37.7 C H 88 27 H 94 06/23/25 21:33 37.7 C H 89 24 96 06/23/25 21:03 37.7 C H 88 25 H 95 06/23/25 21:00 171/70 H 06/23/25 21:00 171/70 H 06/23/25 21:00 171/70 H 06/23/25 20:54 37.7 C H 89 32 H 95 06/23/25 20:33 37.8 C H 89 27 H 96 Lab & Micro Results (Past 24 Hours) RBC 3.30 M/uL (4.70-6.10) L 06/24/25 WBC 4.53 K/ul (4.8-10.8) L 06/24/25 Hgb 10.3 g/dl (14.0-18.0) L 06/24/25 Hct 30.3 % (42.0-52.0) L 06/24/25 MCV 91.8 fL (80.0-100.0) 06/24/25 MCH 31.2 pg (25.0-34.0) 06/24/25 MCHC 34.0 g/dL (32.0-36.0) 06/24/25 RDW Standard Deviation 43.5 fL (36.4-46.3) 06/24/25 RDW Coefficient of Variation 13.0 % (11.5-14.5) 06/24/25 Plt Count 239 K/uL (130-400) 06/24/25 MPV 10.3 fL (9.4-12.4) 06/24/25 Neutrophils (%) (Auto) 83.3 % 06/24/25 Lymphocytes (%) (Auto) 9.3 % 06/24/25 Monocytes # (Auto) 0.25 K/uL (0.11-0.59) 06/24/25 Eosinophils # (Auto) 0.01 K/uL (0.00-0.50) 06/24/25 Immature Granulocyte % (Auto) 1.3 % 06/24/25 Neutrophils # (Auto) 3.77 K/uL (1.40-6.50) 06/24/25 Lymphocytes # (Auto) 0.42 K/uL (1.20-3.40) L 06/24/25 Monocytes # (Auto) 0.25 K/uL (0.11-0.59) 06/24/25 Eosinophils # (Auto) 0.01 K/uL (0.00-0.50) 06/24/25 Basophils # (Auto) 0.02 K/uL (0.00-0.20) 06/24/25 Immature Granulocyte # (Auto) 0.06 K/uL (0.01-0.20) 5 Toxic Vacuolation 1+ 06/24/25 Dohle Bodies 1+ 06/24/25 Na 128 mmol/L (136-145) L 06/24/25 K 4.7 mmol/L (3.5-5.1) 06/24/25 Cl 97 mmol/L (98-107) L 06/24/25 CO2 25 mmol/L (21-32) 06/24/25 Anion Gap 6 (3-11) 06/24/25 BUN 33 mg/dl (6-23) H 06/24/25 Creatinine 1.31 mg/dl (0.6-1.4) 06/24/25 BUN/Creatinine Ratio 25.2 (10-20) H 06/24/25 Glu 277 mg/dl (70-99(Fasting)) H 06/24/25 Ca 8.7 mg/dl (8.6-10.3) 06/24/25 Phosphorus Level 2.8 mg/dl (2.5-4.9) 06/24/25 Mg 2.1 mg/dl (1.7-2.4) 06/24/25 04:15 Calcium Level 8.7 mg/dl (8.6-10.3) 06/24/25 04:15 Microbiology 06/23/25 03:53 Aerobic Blood Culture - Preliminary Blood Gram positive bacilli Anaerobic Blood Culture - Preliminary Staphylococcus aureus 06/23/25 13:30 Gram Stain - Final Sputum, Expectorated 06/23/25 03:48 Aerobic Blood Culture - Preliminary Blood No growth in Aerobic bottle after 24 hours. Anaerobic Blood Culture - Preliminary No growth in Anaerobic bottle after 24 hours. I & O Totals 24 Hours 06/23/25 06/24/25 06/25/25 06:59 06:59 06:59 Intake Total 660 / 660 3170 / 3170 Output Total 750 / 750 2375 / 2375 Balance -90 / -90 795 / 795 Cumulative 06/23/25 02:39 thru 06/24/25 06:00 Intake Total 3830 Output Total 3125 Balance 705 RT Ventilator Mngmt (Last Documented) Ventilator Ordered Settings Respiratory Rate 24 06/24/25 07:08 Ventilator - PT Measurements Respiratory Rate 24 Coding Level of Care Code 99045 SUB INP/OBS CARE 2/35MIN Diagnoses Recurrent pneumonia J18.9 Anaphylactoid reaction T78.2XXA Rash R21 Hyperkalemia E87.5 Shock R57.9
[2025-06-24] MEDS: AZITHROMYCIN 250 MG TAB PO SCH (08:50)
[2025-06-24] MEDS: predniSONE 20 MG TAB PO SCH (09:05)
[2025-06-24] MEDS: diphenhydrAMINE Capsule 25 MG CAP PO SCH (09:05)
[2025-06-24] MEDS: FAMOTIDINE 20 MG TAB PO SCH (09:05)
[2025-06-24] MEDS ORDERED: NovoLIN-N (NPH) PER UNIT CHARGE SQ STA (10:21)
--- NOTE | 2025-06-24 12:34 | Pharmacy Report ---
Pharmacy Glycemic Short Note 2 - Date of Service June 24, 2025 - Glycemic Short BSG Results (Last 24 hours): 06/23/25 06/23/25 06/23/25 15:19 16:07 16:21 Glucose Cancelled 307 H* POC Glucose 259 H 06/23/25 06/23/25 06/24/25 20:08 21:23 00:23 Glucose 317 H* POC Glucose 297 H 327 H* 06/24/25 06/24/25 06/24/25 00:24 02:37 04:08 Glucose POC Glucose 302 H* 286 H 274 H 06/24/25 06/24/25 06/24/25 04:15 07:10 11:11 Glucose 277 H POC Glucose 271 H 290 H OUTPATIENT ANTIDIABETIC REGIMEN: * Tresiba 30 units BID * Novolog CR 20 + some correctional * A1c: 8.1% 05/30/25 ASSESSMENT: * T1DM presenting for possible anaphylaxis, hyperglycemic likely secondary to stress response and steroids. Patient now with MSSA bacteremia. * Patient was initially on solumedrol ND, transitioned to oral prednisone today and is eating * Outpatient regimen is basal heavy. Will utilize outpatient regimen in addition to past admission data to help guide dosing. Will tighten novolog scale further today to account for steroid induced post prandial hyperglycemia. PLAN FOR INPATIENT GLYCEMIC CONTROL: * Hold outpatient oral diabetes medications * Basal insulin * a total of 30 units of Lantus was administered last evening. * Lantus 30 units SQ ~1130 * Lantus per scale this evening- See MAR for details * Bolus insulin * NovoLog per scale ACHS or Q6hrs while NPO * Goal Range: Low 110 mg/dL - High 140 mg/dL * Correction Factor: 15 mg/dL/unit * Nutritional / Prandial insulin per carb ratio of 1 unit per 3 grams CHO consumed
--- NOTE | 2025-06-24 15:04 | Infectious Disease Consult ---
Date of Consultation June 24, 2025 Assessment & Plan (1) MSSA bacteremia: (2) Bilateral pneumonia: Plan Problems: #MSSA bacteremia #Pneumonia #Anaphylactic reaction Micro: 06/23 Sputum cx: Staph aureus 06/23 BCx x2: Staph aureus in 1/4 bottles, GPRs in 1/4 bottles Abx: Ceftriaxone 06/23 - present Azithro 06/23 - present Unasyn 06/23 64 yo M with type 1 diabetes, gastroparesis, neurogenic bladder, neuropathy, CKD, CAD, COPD, TIA 04/15 on Plavix, recurrent pneumonias, chronic aspiration who presented on 06/23 with rash and anaphylactic reaction in the setting of feeling ill for several days, found to have MSSA bacteremia and pneumonia. Reported he has been ill and febrile for the last few days, with worsening of his chronic cough, now productive. He took Tussin with codeine (which he has taken for many years), and following this, developed shortness of breath and began to feel itchy. Was noted to have a rash in his armpits, on his arms, bilateral groin folds, tracked down his legs. Then began having facial itching, redness, swelling to his eyelids, lips, ears. EMS was called and he was hypoxic and hypotensive, and was given Benadryl and IM epinephrine en route. On arrival, he was noted to have severe swelling of his face, and wheals with erythematous rash to arms. Initially afebrile, although later became febrile to 38. Labs with WBC 3.47, Cr 1.73, lactate 5, procal 6.22. RVP negative. CXR with bilateral lower lung alveolar opacities, suggesting infective/inflammatory process. Pt was given Unasyn, then started on ceftriaxone and azithromycin. Admitted to ICU, and improving following epinephrine, H2, antihistamines, steroids. Admission blood cultures now growing Staph aureus in 1/4 bottles, and GPRs in 1/4 bottles. Biofire shows MSSA. Sputum culture growing Staph aureus. Discussion: Pt with Staph aureus bacteremia, may be secondary to pneumonia given it is also growing in his sputum culture. Recommendations: - Ordered repeat blood cultures - Stopped ceftriaxone. Started cefazolin 2 g IV q8h - Ordered TTE to evaluate for endocarditis - Monitor for seeding of MSSA bacteremia elsewhere--if pt has joint or spine pain, would pursue imaging of these areas Will continue to follow. Consultation Information This patient recommendation is based on a telemedicine consult request which was completed asynchronously through chart review and information provided by the primary physician. The patient was not seen or examined today. The evaluation is consultative in nature and all patient care and treatment decisions can either be accepted or rejected by the patient's primary hospital-based treating physician using their own independent medical judgment for their patient. Transfer Machine Operator contact information: Please call [facility] . (Phone Number For Physician Use Only) An e-consult was performed as the video cart is not functioning. Time Spent Reviewing Chart: 31+ minutes History of Present Illness Reason for Consultation: bacteremia Attending Physician: Kristian Bustamante History of Present Illness 64 yo M with type 1 diabetes, gastroparesis, neurogenic bladder, neuropathy, CKD, CAD, COPD, TIA 04/15 on Plavix, recurrent pneumonias, chronic aspiration who presented on 06/23 with rash and allergic reaction. Also reported he has been ill and febrile for the last few days, with worsening of his chronic cough, now productive. He took Tussin with codeine (which he has taken for many years), and following this, developed shortness of breath and began to feel itchy. Was noted to have a rash in his armpits, on his arms, bilateral groin folds, tracked down his legs. Then began having facial itching, redness, swelling to his eyelids, lips, ears. EMS was called and he was hypoxic and hypotensive, and was given Benadryl and IM epinephrine en route. On arrival, he was noted to have severe swelling of his face, and wheels with erythematous rash to arms. Initially afebrile, although later became febrile to 38. Labs with WBC 3.47, Cr 1.73, lactate 5, procal 6.22. RVP negative. CXR with bilateral lower lung alveolar opacities, suggesting infective/inflammatory process. Pt was given Unasyn, then started on ceftriaxone and azithromycin. Admitted to ICU, and improving following epinephrine, H2, antihistamines, steroids. Admission blood cultures now growing Staph aureus in 1/4 bottles, and GPRs in 1/4 bottles. Biofire shows MSSA. Sputum culture growing Staph aureus. Allergies Allergy/AdvReac Type Severity Reaction Status Date / Time lisinopril Allergy Severe " TONGUE Verified 05/20/25 11:16 SWELLS"--ANGIOEDEMA dextromethorphan AdvReac Severe Anaphylaxis Verified 06/24/25 11:59 [From Robitussin CoughGel] guaifenesin [From Robitussin] AdvReac Severe Anaphylaxis Verified 06/24/25 11:59 phenylephrine AdvReac Severe Anaphylaxis Verified 06/24/25 11:59 [From Robitussin Cough and Cold CF] lorazepam AdvReac Intermediate Hallucinati Verified 05/20/25 11:16 ons Home Medications Medication Instructions Recorded Confirmed Type lactobacillus combination no.4 3 3,000 mmu cells PO QAM 08/06/18 06/23/25 History billion cell capsule (Probiotic) aspirin 81 mg tablet,delayed 81 mg PO QAM 06/09/19 06/23/25 History release glucosamine sulfate 500 mg tablet 500 mg PO QDL 07/05/19 06/23/25 History (Glucosamine) ferrous sulfate 325 mg (65 mg 325 mg PO BID 03/25/21 05/20/25 History iron) tablet fexofenadine 180 mg tablet 180 mg PO QAM 08/28/22 06/23/25 History ([facility]a Allergy) levothyroxine 175 mcg tablet 175 mcg PO QAM #90 tabs 11/06/23 06/23/25 Rx xnoyqfd-lgqpdzttdrxjl-kyroyoco 250 1 tab PO Q6H PRN Migraine Headache 01/08/24 05/20/25 History mg-250 mg-65 mg tablet (Excedrin Migraine) BiPap Machine #1 ea 05/29/24 05/20/25 Rx atorvastatin 80 mg tablet 80 mg PO HS #90 tabs 07/08/24 06/23/25 Rx pantoprazole 40 mg tablet,delayed 40 mg PO BID #180 tabs 07/21/24 06/23/25 Rx release (Protonix) fluticasone fur. 100 mcg-umeclid 1 inh inhalation QAM 90 days #90 09/08/24 06/23/25 Rx 62.5 mcg-vilant 25 mcg puffs inhalat.powder (Trelegy Ellipta) metoclopramide HCl 10 mg tablet 10 mg PO QID #120 tabs 09/22/24 06/23/25 Rx (Reglan) bumetanide 1 mg tablet 1 mg PO BID #180 tabs 09/29/24 06/23/25 Rx famotidine 20 mg tablet 20 mg PO BID 11/06/24 06/23/25 History insulin aspart U-100 100 unit/mL 0 sliding scale dose subcut UD 11/06/24 05/20/25 History (3 mL) subcutaneous pen (Novolog FlexPen U-100 Insulin aspart) promethazine 25 mg tablet 25 mg PO Q6H PRN n/v 11/06/24 05/20/25 History montelukast 10 mg tablet 10 mg PO HS 11/24/24 06/23/25 History albuterol sulfate 90 mcg/actuation 2 puff inhalation Q4H PRN 01/12/25 06/23/25 Rx aerosol inhaler Shortness Of Breath #8.5 grams acetaminophen 325 mg tablet 325 mg PO Q6H PRN PAIN/FEVER 01/13/25 06/23/25 History (Tylenol) sennosides 8.6 mg tablet (senna) 8.6 mg PO BID 01/13/25 06/23/25 History sodium chloride 1,000 mg soluble 1,000 - 2,000 mg PO QID 01/13/25 06/23/25 History tablet ondansetron HCl 8 mg tablet 8 mg PO TID PRN nausea and 03/04/25 06/23/25 Rx vomiting #30 tabs hydrocodone-homatropine 5 mg-1.5 1 tab PO BID PRN cough #60 tabs 03/23/25 06/23/25 Rx mg tablet magnesium oxide 400 mg PO DAILY 03/31/25 06/23/25 History amlodipine 2.5 mg tablet 2.5 mg PO QAM #90 tabs 04/06/25 06/23/25 Rx famotidine 40 mg tablet 40 mg PO HS 04/13/25 06/23/25 History levalbuterol HCl 0.63 mg/3 mL 0.63 mg (3 mL) inhalation Q6H PRN 04/13/25 06/23/25 Rx solution for nebulization shortness of breath or wheezing #360 mL atenolol 50 mg tablet (Tenormin) 50 mg PO BID #180 tabs 05/04/25 06/23/25 Rx isosorbide mononitrate 30 mg 30 mg PO QAM #90 tabs 05/04/25 06/23/25 Rx tablet,extended release 24 hr losartan 100 mg tablet 100 mg PO QAM #90 tabs 05/04/25 06/23/25 Rx nortriptyline 25 mg capsule 50 mg (2 x 25 mg) PO HS #180 caps 05/04/25 06/23/25 Rx tamsulosin 0.4 mg capsule (Flomax) 0.4 mg PO QPM #90 caps 05/07/25 06/23/25 Rx sucralfate 1 gram tablet 1 g PO ACHS 05/11/25 05/20/25 History insulin degludec 100 unit/mL (3 30 unit (0.3 mL) subcut BID #0 mL 05/13/25 06/23/25 Rx mL) subcutaneous pen (Tresiba FlexTouch U-100 insulin) clopidogrel 75 mg tablet 75 mg PO DAILY #30 tabs 06/01/25 06/23/25 Rx folic acid 1 mg tablet 1 mg PO BID #180 tabs 06/02/25 Rx oxycodone-acetaminophen 5 mg-325 1 - 2 tab PO DAILY PRN Pain 30 06/10/25 06/23/25 Rx mg tablet (Percocet) days #60 tabs dutasteride 0.5 mg capsule 0.5 mg PO DAILY #90 caps 06/19/25 Rx Patient History Medical History Chronic hyponatremia Chronic headache Dysphagia History of recent pneumonia 03/31/25 (admitted with pneumonia and TIA) per pt has had pneumonia 3x this year--questioning if pt has been having aspiration pneumonia--reason for scheduled EGD, has been having some coughing still, nick in am History of TIA (transient ischemic attack) 03/31/2025--no deficits--unknown cause, did have low sodium at the time and diagnosed with pneumonia as well--was just started on plavix afterwards--follows with Dr. Espino with [facility] History of trigger finger release bilat hands CKD (chronic kidney disease) follows with Dr. Neves Neurogenic bladder Edema BLE's History of COVID-19 2022 Hypothyroidism Acquired solitary kidney pt has two kidneys, denies COPD (chronic obstructive pulmonary disease) Gastroparesis Chronic cough Depression History of pneumonia was inpatient [facility], DC'ed 01/15/25 Mitral regurgitation follows with Dr. Greenfield Acquired blindness of both eyes Hx of sepsis approx 2019 from failed root canal Hx of gastric ulcer Hx of angioedema no known cause Unstable angina stable at present History of stroke 2013 > slight cognitive issues since, helps with medical things LUZMA (obstructive sleep apnea) bipap GERD (gastroesophageal reflux disease) Family history of colon cancer DM type 1 (diabetes mellitus, type 1) History of angiography Premature ventricular beats History of subarachnoid hemorrhage 2013; memory/cognitive deficits (reports total of 3 strokes but only known event was in 2013 -- remaining strokes were incidental findings) CAD (coronary artery disease), qawalangin coronary artery PAD (peripheral artery disease) BPH (benign prostatic hyperplasia) Chronic diastolic CHF (congestive heart failure) pt unable to verify Migraine Microcytic anemia hx Hyperlipidemia Hypertension Ischemic colitis Over 10 years ago (before 2007) Asthma uses res inh few times per week per pt Surgical History Hx of surgical procedure I&D left submandibular and floor of the mouth History of carpal tunnel release right History of esophagogastroduodenoscopy (EGD) Difficult airway for intubation reports he was told he was a difficult intubation after rectal abscess surgery at [facility]. says he has been intubated since then without issues; denies problems prior to that procedure, as well. History of vasectomy History of tonsillectomy and adenoidectomy History of hand surgery Hand Incision Tendon Sheath of a Finger History of rectal abscess I&D History of transurethral resection of prostate History of appendectomy History of eye surgery multiple History of ventral hernia repair H/O colonoscopy recent 02/2025 @ [place] Family History Mother Hypertension Grandfather (Paternal) Colon cancer Prostate cancer Brother Brain cancer Diabetes Bone cancer Kidney disease Lung cancer Son Diabetes Lung cancer Father Hemorrhagic stroke Hypertension Diabetes Heart disease Other Breast cancer No family history of adverse response to anesthesia Testicular cancer Denies family history of Ovarian cancer Myocardial infarction Social History Smoking Status: Former smoker Tobacco Type: Cigarettes Age Started Using Tobacco: 16; Age Quit Using Tobacco: 49; packs per day: 1.5; Cigarettes Per Day: 20; Second Hand Exposure: No; Do You Dip or Chew Tobacco: No; Hx Alcohol Use: Yes Alcohol type: hard liquor Alcohol Intake Frequency: Monthly or Less Hx Substance Use: No Preferred Language: Ghanaian Communication Ability: Effective Communication Ability Comment: pt is blind-- signs consents Communication Tools: Other Visual Impairment: No Limitations Hearing Ability: Hard of Hearing Furniture Upholstery Mechanic Required: No Beliefs That Will Affect Care: None marital status: Current Living Situation: Spouse current occupational status: disabled 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 How many Children do You have: 2 Feels Safe at Home: Yes Childhood Exposure to Second-Hand Smoke: Yes Diet: regular Diet Comment: regular Dental Care, Regularly: Yes Physical Activity Frequency: Does not Exercise Seatbelt Use: always Sunscreen Use: Yes Assistive Devices: Cane Results & Data Vital Signs (Past 12 Hours) Vital Signs Temp Pulse Resp BP Pulse Ox O2 Del Method 06/24/25 13:31 Room Air 06/24/25 12:03 107 H 18 90 06/24/25 11:00 36.7 C 93 H 24 96 06/24/25 10:00 179/80 H 06/24/25 10:00 36.6 C 89 15 97 06/24/25 09:26 Room Air 06/24/25 09:12 36.6 C 93 H 22 97 06/24/25 09:00 178/75 H 06/24/25 08:57 36.6 C 95 H 19 96 06/24/25 08:14 36.8 C 102 H 23 96 06/24/25 08:00 170/94 H 06/24/25 07:56 36.8 C 106 H 19 97 06/24/25 07:44 36.7 C 103 H 18 94 06/24/25 07:21 180/83 H 06/24/25 07:08 36.4 C L 85 24 97 06/24/25 07:05 36.4 C L 90 21 97 06/24/25 07:00 193/78 H 06/24/25 06:58 87 06/24/25 06:54 36.3 C L 95 H 27 H 92 06/24/25 06:00 36.5 C 87 24 174/74 H 96 06/24/25 05:06 36.5 C 93 H 21 89 L 06/24/25 05:00 171/79 H 09/03/25 04:54 36.4 C L 85 96 06/24/25 04:01 188/77 H 06/24/25 04:00 36.4 C L 79 26 H 95 06/24/25 03:03 36.6 C 88 20 170/66 H 95 06/24/25 02:57 36.6 C 87 21 95 Laboratory Results Short CBC 06/24/25 Range/Units 04:27 WBC 4.53 L (4.8-10.8) K/ul Hgb 10.3 L D (14.0-18.0) g/dl Hct 30.3 L (42.0-52.0) % Plt Count 239 (130-400) K/uL BMP 06/23/25 06/23/25 06/23/25 15:19 16:07 21:23 Sodium Cancelled 127 L 126 L Potassium Cancelled 5.7 H 5.1 Chloride Cancelled 96 L 94 L Carbon Dioxide Cancelled 20 L 23 BUN Cancelled 34 H 36 H Creatinine Cancelled 1.55 H 1.64 H Glucose Cancelled 307 H* 317 H* Calcium Cancelled 8.7 8.5 L 06/24/25 04:15 Sodium 128 L Potassium 4.7 Chloride 97 L Carbon Dioxide 25 BUN 33 H Creatinine 1.31 D Glucose 277 H Calcium 8.7
--- NOTE | 2025-06-24 16:39 | XCELERA ---
[id number]
[2025-06-24] MEDS: LANTUS PER UNIT CHARGE SQ SCH (20:48)
--- NOTE | 2025-06-24 22:32 | Hospitalist Progress Note ---
Date of Service June 24, 2025 Assessment & Plan (1) Rash: (2) Multifocal pneumonia: (3) Hyponatremia: (4) CAD (coronary atherosclerotic disease): (5) Diabetes mellitus type 1, uncontrolled: (6) COPD (chronic obstructive pulmonary disease): (7) Acquired blindness: Plan 64yo male with multiple medical comorbidities presenting with severe allergic reaction - rash with anaphylaxis. Etiology unclear. Possible rash secondary to Plavix, possible infectious. #Rash/Anaphylaxis - diffuse, symmetrical, erythematous, pruritic, urticarial rash - sparing of palms/soles/mucus membranes. Inciting event unknown. Patient remains hemodynamically stable following administration of epinephrine IM and IV. No airway involvement. No desquamation or blistering -Admit to MICU -Improved rash, no longer requires ICY. will continue corticosteroids as noted below. -Treatment with Solumedrol 40mg IV BID/ transition to prednisone -Pepcid 20mg IV BID and 40mg po qHS -Benadryl 50mg IV q 6 hours -Continue Fexofenadine -Continue Montelukast -Will hold antihypertensives for now and continue to monitor BP response (Amlodipine, Atenolol, Bumex, Isosorbide mononitrate, Losartan #Pneumonia - CXR suggestive of bilateral lower lobe PNA. . Respiratory biofire panel is negative, MRSA nares negative . -Follow blood cultures -Empiric coverage for now with Ceftriaxone and Azithromycin - will consult ID due to bacteremia. #NITIN/Hyperkalemia- patient with NITIN on CKD. Cr today=1.73, increased from most recently 1.34. Hyperkalemia with K=6.9 s/p treatment with IVF, Insulin/D50, Calcium gluconate and Albuterol -Continue hydration -Avoid nephrotoxic medications -Renal dosing where needed #Hyponatremia - chronic. Patient is on salt tablets daily. Na gtxlx=[id number], slightly lower than baseline -Continue hydration -Continue salt tablets #DM -Glycemic management per MICU #COPD -Continue Trelegy or formulary equivalent -Xopenex PRN -Supplemental O2 as needed LUZMA-BiPAP at night #BPH -Continue Flomax #CAD/possible TIA -Continue ASA -Holding Plavix, possibly contributing to rash -Continue Atorvastatin Admission and Anticipated Discharge Date Admission Date: June 23, 2025 Subjective Patient reports feeling better. He no longer is having generalized malaise. Physical Exam Physical Exam: General: NAD, answering questions appropriately and following commands Skin: decreased circular isolated rashed on his legs. HEENT: NC/AT, absence of eyes bilaterally, ears red, swollen bilaterally Heart: +S1/S2, regular, no m/r/g Lungs: clear Abd: +BS, soft, NT/ND, no masses/organomegaly/ascites Ext: warm, 2+ pulses in UE/LE bilaterally, no clubbing/cyanosis or edema Results & Data Results & Data Vital Signs (Past 12 Hours) Vital Signs Temp Pulse Pulse Resp BP Pulse Ox O2 Del Method 06/24/25 20:14 36.7 C 88 18 196/87 H 94 Room Air 06/24/25 16:26 36.4 C L 83 18 194/89 H 97 Room Air 06/24/25 13:31 Room Air 06/24/25 12:03 107 H 18 90 06/24/25 11:00 36.7 C 93 H 24 96 PG Care Time/CCT Total # of Minutes Spent Total Time Spent with Patient: Total time spent is greater than 50% in coordination of care (as documented) at patient's floor/unit and/or counseling patient: Coding Level of Care Code 61625 SUB INP/OBS CARE 3/50MIN Diagnoses Rash R21 Multifocal pneumonia J18.9 Hyponatremia E87.1 CAD (coronary atherosclerotic disease) I25.10 Uncontrolled type 1 diabetes mellitus with hyperglycemia E10.65 Chronic bronchitis, unspecified chronic bronchitis type J44.9 COPD type: unspecified COPD Acquired blindness H54.7 (6) COPD (chronic obstructive pulmonary disease) COPD type: unspecified COPD Qualified Code(s): J44.9 - Chronic obstructive pulmonary disease, unspecified
[2025-06-24] MEDS: LABETALOL HCL IV 5 MG/ML 20ML IV PRN (22:55)
[2025-06-25] MEDS: CARBOHYDRATES FOR HYPOGLYCEMIA PO PRN (01:02)
[2025-06-25 06:43] LABS: Hematocrit (blood only) 29.0 % (42.0-52.0); Hemoglobin 9.8 g/dl (14.0-18.0); Mean Corpuscular Hemoglobin 31.3 pg (25.0-34.0); Mean Corpuscular Volume 92.7 fL (80.0-100.0); Platelet Count 235 K/uL (130-400); RDW Standard Deviation 43.9 fL (36.4-46.3); Red Blood Count 3.13 M/uL (4.70-6.10); White Blood Count 7.02 K/ul (4.8-10.8)
[2025-06-25 07:02] LABS: Anion Gap 7.0 (3-11); Blood Urea Nitrogen 23.0 mg/dl (6-23); Calcium 8.9 mg/dl (8.6-10.3); Carbon Dioxide 27.0 mmol/L (21-32); Chloride 100.0 mmol/L (98-107); Creatinine Clr Calc Pharmacy 99.6 ml/min; Glucose 159.0 mg/dl (70-99(Fasting)); Magnesium 2.2 mg/dl (1.7-2.4); Potassium 3.9 mmol/L (3.5-5.1); Sodium 134.0 mmol/L (136-145)
[2025-06-25 07:22] LABS: Immature Granulocytes # (auto) 0.02 K/uL (0.01-0.20); Immature Granulocytes % (auto) 0.3 %
[2025-06-25] MEDS: DOCUSATE SODIUM 100 MG CAP PO PRN (09:51)
[2025-06-25] MEDS: LANTUS PER UNIT CHARGE SQ SCH (09:52)
--- NOTE | 2025-06-25 09:59 | Pharmacy Report ---
Pharmacy Glycemic Short Note 2 - Date of Service June 25, 2025 - Glycemic Short BSG Results (Last 24 hours): 06/24/25 06/24/25 06/24/25 11:11 16:11 20:11 Glucose POC Glucose 290 H 234 H 206 H 06/25/25 06/25/25 06/25/25 00:48 00:52 01:19 Glucose POC Glucose 59 L* 61 L* 98 06/25/25 06/25/25 06/25/25 04:05 05:51 07:07 Glucose 159 H POC Glucose 188 H 152 H OUTPATIENT ANTIDIABETIC REGIMEN: * Tresiba 30 units SC BID * Novolog SC CR 20 + some correctional * A1c: 8.1% (05/30/25) ASSESSMENT: 06/25: * Cody received 167 units of insulin yesterday, 75 units of which were basal. BSGs were: 496-014-473-234-206-59 mg/dL. * Patient did have a hypoglycemic event last evening around midnight in which he was symptomatic. Treated with 30 g of carbs and BSG improved to 98 mg/dL. Believe this could be due to steroids decreasing as well as too much basal on board. Stacking of Novolog doses could have played a role as well. * Will loosen correction factor which was tightened last evening. Continue same carb ratio. Remains on Ancef, Azithromycin and Prednisone 40 mg PO daily. Tolerating diet. * Fasting BSG this AM was 152 mg/dL. Will reduce basal dose significantly today. 06/24: * T1DM presenting for possible anaphylaxis, hyperglycemic likely secondary to stress response and steroids. Patient now with MSSA bacteremia. * Patient was initially on solumedrol ND, transitioned to oral prednisone today and is eating * Outpatient regimen is basal heavy. Will utilize outpatient regimen in addition to past admission data to help guide dosing. Will tighten novolog scale further today to account for steroid induced post prandial hyperglycemia. PLAN FOR INPATIENT GLYCEMIC CONTROL: * Basal insulin * Lantus 20 units SC BID * Bolus insulin * NovoLog per scale ACHS or Q6hrs while NPO * Goal Range: Low 110 mg/dL - High 140 mg/dL * Correction Factor: 15 mg/dL/unit * Nutritional / Prandial insulin per carb ratio of 1 unit per 3 grams CHO c onsumed
--- NOTE | 2025-06-25 10:48 | Infectious Disease Progress Nt ---
Date of Service June 25, 2025 Assessment & Plan (1) MSSA bacteremia: (2) Bilateral pneumonia: Plan Problems: #MSSA bacteremia #Pneumonia #Anaphylactic reaction Micro: 06/24 BCx x2: pending 06/23 Sputum cx: MSSA 06/23 BCx x2: MSSA in 2/4 bottles, GPRs in 1/4 bottles Abx: Cefazolin 06/24 - present Ceftriaxone 06/23 - 06/24 Azithro 06/23 - 06/25 Unasyn 06/23 64 yo M with type 1 diabetes, gastroparesis, neurogenic bladder, neuropathy, CKD, CAD, COPD, TIA 04/15 on Plavix, recurrent pneumonias, chronic aspiration who presented on 06/23 with rash and anaphylactic reaction in the setting of feeling ill for several days, found to have MSSA bacteremia and pneumonia. Reported he has been ill and febrile for the last few days, with worsening of his chronic cough, now productive. He took Tussin with codeine (which he has taken for many years), and following this, developed shortness of breath and began to feel itchy. Was noted to have a rash in his armpits, on his arms, bilateral groin folds, tracked down his legs. Then began having facial itching, redness, swelling to his eyelids, lips, ears. EMS was called and he was hypoxic and hypotensive, and was given Benadryl and IM epinephrine en route. On arrival, he was noted to have severe swelling of his face, and wheals with erythematous rash to arms. Initially afebrile, although later became febrile to 38. Labs with WBC 3.47, Cr 1.73, lactate 5, procal 6.22. RVP negative. CXR with bilateral lower lung alveolar opacities, suggesting infective/inflammatory process. Pt was given Unasyn, then started on ceftriaxone and azithromycin. Admitted to ICU, and improving following epinephrine, H2, antihistamines, steroids. Admission blood cultures now growing MSSA in 2/4 bottles, and GPRs in 1/4 bottles. Sputum culture growing MSSA. Discussion: Pt with MSSA bacteremia, likely secondary to pneumonia given it is also growing in his sputum culture. TTE on 06/24 with no evidence of endocarditis although image quality suboptimal. Recommendations: - Follow-up repeat blood cultures from 06/24 - Continue cefazolin 2 g IV q8h - Given that valves were not well visualized on TTE, would consider FANNY to rule out endocarditis - Monitor for seeding of MSSA bacteremia elsewhere--if pt has joint or spine pain, would pursue imaging of these areas Will continue to follow. Admission and Anticipated Discharge Date Admission Date: June 23, 2025 Subjective This patient recommendation is based on a telemedicine consult request which was completed asynchronously through chart review and information provided by the primary physician. The patient was not seen or examined today. The evaluation is consultative in nature and all patient care and treatment decisions can either be accepted or rejected by the patient's primary hospital-based treating physician using their own independent medical judgment for their patient. Time Spent Reviewing Chart: 11 - 20 minutes No acute events Results & Data Vital Signs (Past 12 Hours) Vital Signs Temp Pulse Pulse Resp BP BP Pulse Ox 06/25/25 07:45 36.5 C 75 20 201/82 H 93 06/25/25 02:59 36.9 C 87 18 188/72 H 94 06/25/25 00:54 98 H 185/79 H 06/24/25 22:55 90 211/84 H O2 Del Method 06/25/25 07:45 Room Air 06/25/25 02:59 Room Air 06/25/25 00:54 06/24/25 22:55
[2025-06-25] MEDS: SODIUM CHLOR 7% 4 ML NEB NEB SCH (15:04)
--- NOTE | 2025-06-25 22:36 | Hospitalist Progress Note ---
Date of Service June 25, 2025 Assessment & Plan (1) Rash: (2) Multifocal pneumonia: (3) Hyponatremia: (4) CAD (coronary atherosclerotic disease): (5) Diabetes mellitus type 1, uncontrolled: (6) COPD (chronic obstructive pulmonary disease): (7) Acquired blindness: Plan 64yo male with multiple medical comorbidities presenting with severe allergic reaction - rash with anaphylaxis. Etiology unclear. Possible rash secondary to Plavix, possible infectious. #Rash/Anaphylaxis - diffuse, symmetrical, erythematous, pruritic, urticarial rash - sparing of palms/soles/mucus membranes. Inciting event unknown. Patient remains hemodynamically stable following administration of epinephrine IM and IV. No airway involvement. No desquamation or blistering -Admit to MICU -Improved rash, no longer requires ICY. will continue corticosteroids as noted below. -Treatment with Solumedrol 40mg IV BID/ transition to prednisone -Pepcid 20mg IV BID and 40mg po qHS -Benadryl 50mg IV q 6 hours -Continue Fexofenadine -Continue Montelukast -resume bp meds #Pneumonia - CXR suggestive of bilateral lower lobe PNA. . Respiratory biofire panel is negative, MRSA nares negative . -Follow blood cultures: showing staph aureus. -no on cefazolin and Azithromycin - will consult ID due to bacteremia. #NITIN/Hyperkalemia- patient with NITIN on CKD. Cr today=1.73, increased from most recently 1.34. Hyperkalemia with K=6.9 s/p treatment with IVF, Insulin/D50, Calcium gluconate and Albuterol -Continue hydration -Avoid nephrotoxic medications -Renal dosing where needed #Hyponatremia - chronic. Patient is on salt tablets daily. Na [id number], slightly lower than baseline -Continue hydration -Continue salt tablets #DM -Glycemic management per MICU #COPD -Continue Trelegy or formulary equivalent -Xopenex PRN -Supplemental O2 as needed LUZMA-BiPAP at night #BPH -Continue Flomax #CAD/possible TIA -Continue ASA -Holding Plavix, possibly contributing to rash -Continue Atorvastatin Admission and Anticipated Discharge Date Admission Date: June 23, 2025 Subjective 64 yo reports having a strng cough today. Physical Exam Physical Exam: General: NAD, answering questions appropriately and following commands Skin: rash is gone HEENT: NC/AT, absence of eyes bilaterally, ears red, swollen bilaterally Heart: +S1/S2, regular, no m/r/g Lungs: clear Abd: +BS, soft, NT/ND, no masses/organomegaly/ascites Ext: warm, 2+ pulses in UE/LE bilaterally, no clubbing/cyanosis or edema Results & Data Results & Data Vital Signs (Past 12 Hours) Vital Signs Temp Pulse Resp BP Pulse Ox O2 Del Method FiO2 06/25/25 21:30 Room Air, BiPAP 06/25/25 21:30 36.4 C L 79 20 192/72 H 95 Room Air 06/25/25 20:55 Room Air 06/25/25 20:19 36.4 C L 77 18 189/70 H 93 Room Air 06/25/25 15:27 36.5 C 69 18 184/72 H 93 Room Air 06/25/25 15:07 68 17 94 Room Air 21 06/25/25 12:04 36.5 C 69 18 164/72 H 92 Room Air PG Care Time/CCT Total # of Minutes Spent Total Time Spent with Patient: Total time spent is greater than 50% in coordination of care (as documented) at patient's floor/unit and/or counseling patient: Coding Level of Care Code 62393 SUB INP/OBS CARE 3/50MIN Diagnoses Rash R21 Multifocal pneumonia J18.9 Hyponatremia E87.1 CAD (coronary atherosclerotic disease) I25.10 Uncontrolled type 1 diabetes mellitus with hyperglycemia E10.65 Chronic bronchitis, unspecified chronic bronchitis type J44.9 COPD type: unspecified COPD Acquired blindness H54.7 (6) COPD (chronic obstructive pulmonary disease) COPD type: unspecified COPD Qualified Code(s): J44.9 - Chronic obstructive pulmonary disease, unspecified
--- NOTE | 2025-06-26 07:07 | Anesthesiology Consultation ---
Date of Service June 26, 2025 Assessment & Plan Chart Review Chart Review: Acceptable Risk for Surgery and Patient NOT seen in Pre Admission Testing Consults Requested none History Surgery Operation Date: 06/26/25 07:45 Proposed Procedures p Trans-Esophageal Echo - Jasen Larkin MD Height/Weight Height: 5 ft 9 in Weight: 100.3 kg Allergies Allergy/AdvReac Type Severity Reaction Status Date / Time lisinopril Allergy Severe " TONGUE Verified 05/20/25 11:16 SWELLS"--ANGIOEDEMA dextromethorphan AdvReac Severe Anaphylaxis Verified 06/24/25 11:59 [From Robitussin CoughGel] guaifenesin [From Robitussin] AdvReac Severe Anaphylaxis Verified 06/24/25 11:59 phenylephrine AdvReac Severe Anaphylaxis Verified 06/24/25 11:59 [From Robitussin Cough and Cold CF] lorazepam AdvReac Intermediate Hallucinati Verified 05/20/25 11:16 ons Medications Home Medications Medication Instructions Recorded Confirmed Last Taken lactobacillus combination no.4 3 3,000 mmu cells PO QAM 08/06/18 06/23/25 05/11/25 billion cell capsule (Probiotic) aspirin 81 mg tablet,delayed 81 mg PO QAM 06/09/19 06/23/25 05/11/25 release glucosamine sulfate 500 mg tablet 500 mg PO QDL 07/05/19 06/23/25 05/10/25 (Glucosamine) ferrous sulfate 325 mg (65 mg 325 mg PO BID 03/25/21 05/20/25 05/11/25 08:00 iron) tablet fexofenadine 180 mg tablet 180 mg PO QAM 08/28/22 06/23/25 05/11/25 ([place] Allergy) levothyroxine 175 mcg tablet 175 mcg PO QAM #90 tabs 11/06/23 06/23/25 05/11/25 dhvjxtg-ormudodvoytan-kybbojih 250 1 tab PO Q6H PRN Migraine Headache 01/08/24 05/20/25 Unknown mg-250 mg-65 mg tablet (Excedrin Migraine) BiPap Machine #1 ea 05/29/24 05/20/25 Unknown atorvastatin 80 mg tablet 80 mg PO HS #90 tabs 07/08/24 06/23/25 05/10/25 pantoprazole 40 mg tablet,delayed 40 mg PO BID #180 tabs 07/21/24 06/23/25 05/11/25 08:00 release (Protonix) fluticasone fur. 100 mcg-umeclid 1 inh inhalation QAM 90 days #90 09/08/24 06/23/25 05/11/25 62.5 mcg-vilant 25 mcg puffs inhalat.powder (Trelegy Ellipta) metoclopramide HCl 10 mg tablet 10 mg PO QID #120 tabs 09/22/24 06/23/25 05/11/25 08:00 (Reglan) bumetanide 1 mg tablet 1 mg PO BID #180 tabs 09/29/24 06/23/25 05/11/25 08:00 famotidine 20 mg tablet 20 mg PO BID 11/06/24 06/23/25 05/11/25 08:00 insulin aspart U-100 100 unit/mL 0 sliding scale dose subcut UD 11/06/24 05/20/25 04/20/25 07:10 (3 mL) subcutaneous pen (Novolog FlexPen U-100 Insulin aspart) promethazine 25 mg tablet 25 mg PO Q6H PRN n/v 11/06/24 05/20/25 04/20/25 montelukast 10 mg tablet 10 mg PO HS 11/24/24 06/23/25 05/10/25 albuterol sulfate 90 mcg/actuation 2 puff inhalation Q4H PRN 01/12/25 06/23/25 Unknown aerosol inhaler Shortness Of Breath #8.5 grams acetaminophen 325 mg tablet 325 mg PO Q6H PRN PAIN/FEVER 01/13/25 06/23/25 02/23/25 16:00 (Tylenol) sennosides 8.6 mg tablet (senna) 8.6 mg PO BID 01/13/25 06/23/25 05/11/25 08:00 sodium chloride 1,000 mg soluble 1,000 - 2,000 mg PO QID 01/13/25 06/23/25 05/11/25 08:00 tablet ondansetron HCl 8 mg tablet 8 mg PO TID PRN nausea and 03/04/25 06/23/25 Unknown vomiting #30 tabs hydrocodone-homatropine 5 mg-1.5 1 tab PO BID PRN cough #60 tabs 03/23/25 06/23/25 Unknown mg tablet magnesium oxide 400 mg PO DAILY 03/31/25 06/23/25 05/11/25 amlodipine 2.5 mg tablet 2.5 mg PO QAM #90 tabs 04/06/25 06/23/25 05/11/25 famotidine 40 mg tablet 40 mg PO HS 04/13/25 06/23/25 05/10/25 levalbuterol HCl 0.63 mg/3 mL 0.63 mg (3 mL) inhalation Q6H PRN 04/13/25 06/23/25 04/20/25 solution for nebulization shortness of breath or wheezing #360 mL atenolol 50 mg tablet (Tenormin) 50 mg PO BID #180 tabs 05/04/25 06/23/25 05/11/25 08:00 isosorbide mononitrate 30 mg 30 mg PO QAM #90 tabs 05/04/25 06/23/25 05/11/25 tablet,extended release 24 hr losartan 100 mg tablet 100 mg PO QAM #90 tabs 05/04/25 06/23/25 05/11/25 nortriptyline 25 mg capsule 50 mg (2 x 25 mg) PO HS #180 caps 05/04/25 06/23/25 05/10/25 tamsulosin 0.4 mg capsule (Flomax) 0.4 mg PO QPM #90 caps 05/07/25 06/23/25 05/10/25 sucralfate 1 gram tablet 1 g PO ACHS 05/11/25 05/20/25 05/11/25 07:00 insulin degludec 100 unit/mL (3 30 unit (0.3 mL) subcut BID #0 mL 05/13/25 06/23/25 05/11/25 08:00 mL) subcutaneous pen (Tresiba FlexTouch U-100 insulin) clopidogrel 75 mg tablet 75 mg PO DAILY #30 tabs 06/01/25 06/23/25 Unknown folic acid 1 mg tablet 1 mg PO BID #180 tabs 06/02/25 Unknown oxycodone-acetaminophen 5 mg-325 1 - 2 tab PO DAILY PRN Pain 30 06/10/25 06/23/25 Unknown mg tablet (Percocet) days #60 tabs dutasteride 0.5 mg capsule 0.5 mg PO DAILY #90 caps 06/19/25 Unknown Active Medications Generic Name Dose Route Start Last Admin Trade Name Marcoq PRN Reason Stop Dose Admin Acetaminophen 650 mg 06/23/25 07:12 06/25/25 22:04 Acetaminophen 325 Mg Tab PO 07/23/25 07:11 650 mg Q4H PRN Administration Pain or Fever Amlodipine Besylate 5 mg 06/25/25 09:00 06/25/25 09:36 Amlodipine Besylate 5 Mg Tab PO 07/25/25 08:59 5 mg QAM SILVINA Administration Aspirin 81 mg 06/23/25 09:00 06/25/25 09:36 Aspirin 81 Mg Ectab PO 07/23/25 08:59 81 mg QAM SILVINA Administration Atenolol 50 mg 06/24/25 09:00 06/25/25 20:43 Atenolol 50 Mg Tablet PO 07/24/25 08:59 50 mg BID SILVINA Administration Atorvastatin Calcium 80 mg 06/23/25 21:00 06/25/25 20:42 Atorvastatin 40 Mg Tab PO 07/23/25 20:59 80 mg HS SILVINA Administration Diphenhydramine HCl 50 mg 06/24/25 09:00 06/26/25 00:10 Diphenhydramine Capsule 25 Mg Cap PO 07/24/25 08:59 50 mg Q8H SILVINA Administration Docusate Sodium 100 mg 06/23/25 07:12 06/25/25 09:51 Docusate Sodium 100 Mg Cap PO 07/23/25 07:11 100 mg BID PRN Administration Constipation Famotidine 20 mg 06/24/25 09:00 06/25/25 20:42 Famotidine 20 Mg Tab PO 07/24/25 08:59 20 mg BID SILVINA Administration Fluticasone Furoate 1 puffs 06/23/25 09:00 06/25/25 09:45 Fluticasone Furoate 100mcg 14 Puffs/Inhaler INH 07/23/25 08:59 1 puffs DAILY SILVINA Administration Cefazolin Sodium 2,000 mg in 15 mls @ 3.75 mls/min 06/24/25 16:00 06/26/25 00:10 Ancef 2000mg IV 07/08/25 15:59 3.75 mls/min Q8H SILVINA Administration Insulin Aspart 0 units 06/23/25 11:58 06/25/25 20:47 Insulin Aspart Per Unit Charge SC 07/23/25 11:57 Not Given ACHS SILVINA Insulin Glargine 20 units 06/25/25 09:00 06/25/25 20:48 Lantus Per Unit Charge SQ 07/25/25 08:59 Not Given BID SILVINA Isosorbide Mononitrate 30 mg 06/24/25 09:00 06/25/25 09:46 Isosorbide [place] Extended Rel 30 Mg Tabcr PO 07/24/25 08:59 30 mg QAM SILVINA Administration Labetalol HCl 5 mg 06/24/25 04:31 06/24/25 22:55 Labetalol Hcl Iv 5 Mg/Ml 20ml IV 07/24/25 04:30 5 mg Q2H PRN Administration SBP >180 and/or DBP >95 Levalbuterol HCl 0.63 mg 06/23/25 07:12 06/23/25 15:20 Levalbuterol Hcl 0.63 Mg/3 Ml Neb INH 07/23/25 07:11 0.63 mg Q6H PRN Administration shortness of breath or wheezing Protocol Levothyroxine Sodium 175 mcg 06/23/25 09:00 06/26/25 06:07 Levothyroxine Sodium 175 Mcg Tablet PO 07/23/25 08:59 Not Given DAILYBB SILVINA Metoclopramide HCl 10 mg 06/23/25 09:00 06/25/25 20:42 Metoclopramide Hcl 10 Mg Tablet PO 07/23/25 08:59 10 mg QID SILVINA Administration Miscellaneous 15 - 30 gm 06/23/25 11:54 06/25/25 01:02 Carbohydrates For Hypoglycemia PO 07/23/25 11:53 30 gm UD PRN Administration Hypoglycemia Protocol Montelukast Sodium 10 mg 06/23/25 21:00 06/25/25 20:42 Montelukast Sodium 10 Mg Tablet PO 07/23/25 20:59 10 mg HS SILVINA Administration Nortriptyline HCl 50 mg 06/23/25 21:00 06/25/25 20:41 Nortriptyline Hcl 25 Mg Cap PO 07/23/25 20:59 50 mg HS SILVINA Administration Ondansetron HCl 4 mg 06/23/25 07:12 06/25/25 09:07 Ondansetron Inj 2 Mg/Ml 2 Ml Vial IV 07/23/25 07:11 4 mg Q6H PRN Administration Nausea And Vomiting Pantoprazole Sodium 40 mg 06/23/25 09:00 06/25/25 20:42 Pantoprazole 40 Mg Tab PO 07/23/25 08:59 40 mg BID SILVINA Administration Prednisone 40 mg 06/24/25 09:00 06/25/25 09:20 Prednisone 20 Mg Tab PO 07/24/25 08:59 40 mg DAILY SILVINA Administration Sennosides 8.6 mg 06/23/25 09:00 06/25/25 20:41 Senna 8.6 Mg Tab PO 07/23/25 08:59 8.6 mg BID SILVINA Administration Sodium Chloride 2 gm 06/23/25 09:00 06/25/25 20:42 Sodium Chloride 1 Gm Tablet PO 07/23/25 08:59 2 gm DAILY@0900,2200 SILVINA Administration Sodium Chloride 1 gm 06/23/25 12:00 06/25/25 17:08 Sodium Chloride 1 Gm Tablet PO 07/23/25 11:59 1 gm DAILY@1200,1700 SILVINA Administration Sodium Chloride 4 ml 06/25/25 14:20 06/25/25 15:04 Sodium Chlor 7% 4 Ml Neb NEB 07/25/25 14:19 4 ml BIDR SILVINA Administration Umeclidinium/Vilanterol 1 puffs 06/23/25 09:00 06/25/25 09:39 Umeclidinium/Vilanterol 62.5/25mcg 7 Puffs/Inhaler INH 07/23/25 08:59 1 puffs DAILY SILVINA Administration Past Medical History Medical History Chronic hyponatremia Chronic headache Dysphagia History of recent pneumonia 03/31/25 (admitted with pneumonia and TIA) per pt has had pneumonia 3x this year--questioning if pt has been having aspiration pneumonia--reason for scheduled EGD, has been having some coughing still, nick in am History of TIA (transient ischemic attack) 03/31/2025--no deficits--unknown cause, did have low sodium at the time and diagnosed with pneumonia as well--was just started on plavix afterwards--follows with Dr. Espino with [facility] History of trigger finger release bilat hands CKD (chronic kidney disease) follows with Dr. Neves Neurogenic bladder Edema BLE's History of COVID-19 2022 Hypothyroidism Acquired solitary kidney pt has two kidneys, denies COPD (chronic obstructive pulmonary disease) Gastroparesis Chronic cough Depression History of pneumonia [facility] Mitral regurgitation follows with Dr. Greenfield Acquired blindness of both eyes Hx of sepsis approx 2019 from failed root canal Hx of gastric ulcer Hx of angioedema no known cause Unstable angina stable at present History of stroke 2013 > slight cognitive issues since, helps with medical things LUZMA (obstructive sleep apnea) bipap GERD (gastroesophageal reflux disease) Family history of colon cancer DM type 1 (diabetes mellitus, type 1) History of angiography Premature ventricular beats History of subarachnoid hemorrhage 2013; memory/cognitive deficits (reports total of 3 strokes but only known event was in 2013 -- remaining strokes were incidental findings) CAD (coronary artery disease), [place] coronary artery PAD (peripheral artery disease) BPH (benign prostatic hyperplasia) Chronic diastolic CHF (congestive heart failure) pt unable to verify Migraine Microcytic anemia hx Hyperlipidemia Hypertension Ischemic colitis Over 10 years ago (before 2007) Asthma uses res inh few times per week per pt Past Family History Family History Mother Hypertension Grandfather (Paternal) Colon cancer Prostate cancer Brother Brain cancer Diabetes Bone cancer Kidney disease Lung cancer Son Diabetes Lung cancer Father Hemorrhagic stroke Hypertension Diabetes Heart disease Other Breast cancer No family history of adverse response to anesthesia Testicular cancer Denies family history of Ovarian cancer Myocardial infarction Past Surgical History Surgical History Hx of surgical procedure I&D left submandibular and floor of the mouth History of carpal tunnel release right History of esophagogastroduodenoscopy (EGD) Difficult airway for intubation reports he was told he was a difficult intubation [place] [facility] [place] says he has been intubated since then without issues; denies problems prior to that procedure, as well. History of vasectomy History of tonsillectomy and adenoidectomy History of hand surgery Hand Incision Tendon Sheath of a Finger History of rectal abscess I&D History of transurethral resection of prostate History of appendectomy History of eye surgery multiple History of ventral hernia repair H/O colonoscopy recent 02/2025 @ [place] Social History Smoking Status: Former smoker Smoking cigarettes per day: 20 Do You Dip or Chew Tobacco: No Smoking End Date: 06/30/09 Hx Alcohol Use: Yes Alcohol type: hard liquor alcohol intake frequency: holidays/special occasions only Hx Substance Use: No substance use type: does not use Physical Exam Vital Signs Last Vital Signs Temp 36.4 C L 06/25/25 21:30 Pulse 70 06/25/25 23:07 Resp 20 06/25/25 21:30 BP 177/67 H 06/25/25 23:07 Pulse Ox 95 06/25/25 21:30 O2 Del Method Room Air, BiPAP 06/25/25 21:30 O2 Flow Rate 2 06/23/25 23:11 FiO2 21 06/25/25 15:07 Testing Laboratory Results 06/25/25 05:51 06/25/25 05:51 Urine Color Yellow 06/23/25 05:58 Urine Appearance Clear (Clear) 06/23/25 05:58 Urine pH 6.0 (4.5-7.5) 06/23/25 05:58 Ur Specific [place] 1.014 (1.000-1.030) 06/23/25 05:58 Urine Protein Trace (Negative) H 06/23/25 05:58 Urine Glucose (UA) 2+ (Negative) H 06/23/25 05:58 Urine Ketones Negative (Negative) 06/23/25 05:58 Urine Nitrite Negative (Negative) 06/23/25 05:58 Ur Leukocyte Esterase Negative (Negative) 06/23/25 05:58 Urine WBC (Auto) 0-5 /hpf (0-5) 06/23/25 05:58 Urine RBC (Auto) 0-2 /hpf (0-2) 06/23/25 05:58 U Hyaline Cast (Auto) 0-2 /lpf (0-2) 06/23/25 05:58 U Epithel Cells (Auto) 0-2 /hpf (0-2) 06/23/25 05:58 Urine Bacteria (Auto) None Seen (None Seen) 06/23/25 05:58 06/24/25 16:46 Aerobic Blood Culture - Preliminary Blood No growth in Aerobic bottle after 24 hours. Anaerobic Blood Culture - Preliminary No growth in Anaerobic bottle after 24 hours. 06/24/25 16:46 Aerobic Blood Culture - Preliminary Blood No growth in Aerobic bottle after 24 hours. Anaerobic Blood Culture - Preliminary No growth in Anaerobic bottle after 24 hours. 06/23/25 03:53 Aerobic Blood Culture - Final Blood Bacill.sp.Not anthracis/cereus Anaerobic Blood Culture - Final Staphylococcus aureus 06/23/25 13:30 Gram Stain - Final Sputum, Expectorated Sputum Culture - Final Staphylococcus aureus 06/23/25 03:48 Aerobic Blood Culture - Preliminary Blood Gram positive cocci clusters Anaerobic Blood Culture - Preliminary No growth in Anaerobic bottle after 48 hours. 06/26/25 06/25/25 00:09 20:46 POC Glucose 129 H 145 H
[2025-06-26] MEDS: BENZOCAINE/TETRACAIN/BUTAM 50 APPLN/5 GM CAN EXT ONE (08:04)
[2025-06-26] MEDS: LANTUS PER UNIT CHARGE SQ ONE (08:20)
[2025-06-26 08:45] LABS: Anion Gap 5.0 (3-11); Blood Urea Nitrogen 21.0 mg/dl (6-23); Calcium 8.6 mg/dl (8.6-10.3); Carbon Dioxide 26.0 mmol/L (21-32); Chloride 101.0 mmol/L (98-107); Creatinine Clr Calc Pharmacy 101.2 ml/min; Glucose 192.0 mg/dl (70-99(Fasting)); Magnesium 2.1 mg/dl (1.7-2.4); Potassium 3.9 mmol/L (3.5-5.1); Sodium 132.0 mmol/L (136-145)
--- NOTE | 2025-06-26 08:47 | XRay Report ---
XR chest 1V portable CLINICAL HISTORY: hypoxia COMPARISON STUDY: 06/23/2025 FINDINGS: Single view portable chest is improved when compared with the prior study. The left basilar airspace opacity has nearly resolved. There is a patchy residual right basilar airspace opacity that is smaller and less dense compared with the prior examination. No new lung lesions have developed. T here is no pneumothorax. There is no sizable pleural effusion. Heart size and pulmonary vascularity a re unremarkable for technique. IMPRESSION: Improving bibasilar infiltrates as described. ACT 112: Negative or not required by law. Electronically signed by: Eleanor Walls M.D. 06/26/2025 8:46 AM
[2025-06-26 09:05] LABS: Hematocrit (blood only) 31.2 % (42.0-52.0); Hemoglobin 10.5 g/dl (14.0-18.0); Immature Granulocytes # (auto) 0.20 K/uL (0.01-0.20); Immature Granulocytes % (auto) 2.0 %; Mean Corpuscular Hemoglobin 31.3 pg (25.0-34.0); Mean Corpuscular Volume 93.1 fL (80.0-100.0); Platelet Count 243 K/uL (130-400); RDW Standard Deviation 45.0 fL (36.4-46.3); Red Blood Count 3.35 M/uL (4.70-6.10); White Blood Count 10.05 K/ul (4.8-10.8)
--- NOTE | 2025-06-26 11:27 | Infectious Disease Progress Nt ---
Date of Service June 26, 2025 Assessment & Plan (1) MSSA bacteremia: (2) Bilateral pneumonia: Plan Problems: #MSSA bacteremia #Pneumonia #Anaphylactic reaction Micro: 06/26 Sputum cx: pending 06/24 BCx x2: NGTD 06/23 Sputum cx: MSSA 06/23 BCx x2: MSSA in 1/4 bottles, Bacillus species in 1/4 bottles, Staph epi in 1/4 bottles Abx: Cefazolin 06/24 - present Ceftriaxone 06/23 - 06/24 Azithro 06/23 - 06/25 Unasyn 06/23 64 yo M with type 1 diabetes, gastroparesis, neurogenic bladder, neuropathy, CKD, CAD, COPD, TIA 04/15 on Plavix, recurrent pneumonias, chronic aspiration who presented on 06/23 with rash and anaphylactic reaction in the setting of feeling ill for several days, found to have MSSA bacteremia and pneumonia. Reported he has been ill and febrile for the last few days, with worsening of his chronic cough, now productive. He took Tussin with codeine (which he has taken for many years), and following this, developed shortness of breath and began to feel itchy. Was noted to have a rash in his armpits, on his arms, bilateral groin folds, tracked down his legs. Then began having facial itching, redness, swelling to his eyelids, lips, ears. EMS was called and he was hypoxic and hypotensive, and was given Benadryl and IM epinephrine en route. On arrival, he was noted to have severe swelling of his face, and wheals with erythematous rash to arms. Initially afebrile, although later became febrile to 38. Labs with WBC 3.47, Cr 1.73, lactate 5, procal 6.22. RVP negative. CXR with bilateral lower lung alveolar opacities, suggesting infective/inflammatory process. Pt was given Unasyn, then started on ceftriaxone and azithromycin. Admitted to ICU, and improving following epinephrine, H2, antihistamines, steroids. Admission blood cultures now growing MSSA in 1/4 bottles, Bacillus species in 1/4 bottles, Staph epi in 1/4 bottles. Sputum culture growing MSSA. Discussion: Pt with MSSA bacteremia, likely secondary to pneumonia given it is also growing in his sputum culture. TTE on 06/24 with no evidence of endocarditis although image quality suboptimal. FANNY attempted 06/26, but pt became more hypoxic requiring 5 L NC. Now improved later in the morning, weaned off O2, CXR shows improvement. Recommendations: - Follow-up repeat blood cultures from 06/24 - Continue cefazolin 2 g IV q8h to cover MSSA - Can hold off on FANNY, but would pursue if pt has persistent MSSA bacteremia - Monitor for seeding of MSSA bacteremia elsewhere--if pt has joint or spine pain, would pursue imaging of these areas - If 06/24 blood cultures remain negative and pt's respiratory status improves, could complete a 2 week course of cefazolin 2 g IV q8h (tentatively 06/24-07/07) via PICC Please note that ID does not round or write notes over the weekend. If questions or concerns arise, please contact the Infectious Disease Call Center and ask to speak with the covering ID physician. Admission and Anticipated Discharge Date Admission Date: June 23, 2025 Subjective This patient recommendation is based on a telemedicine consult request which was completed asynchronously through chart review and information provided by the primary physician. The patient was not seen or examined today. The evaluation is consultative in nature and all patient care and treatment decisions can either be accepted or rejected by the patient's primary hospital-based treating physician using their own independent medical judgment for their patient. An e-consult was performed as the video cart is not functioning. Time Spent Reviewing Chart: 11 - 20 minutes This AM, pt more hypoxic, on 5 L. CXR showed improving bibasilar infiltrates. Having productive cough, sent repeat sputum culture. Was able to wean off O2 later in the morning. Afebrile Continues on cefazolin Results & Data Vital Signs (Past 12 Hours) Vital Signs Temp Pulse Pulse Resp BP Pulse Ox Pulse Ox 06/26/25 09:07 97 06/26/25 08:22 36.6 C 75 18 191/79 H 95 06/26/25 08:00 06/26/25 07:48 75 20 93 O2 Del Method O2 Del Method O2 Flow Rate O2 Flow Rate 06/26/25 09:07 Nasal Cannula 4 06/26/25 08:22 Nasal Cannula 5 06/26/25 08:00 Nasal Cannula 5 06/26/25 07:48 Nasal Cannula 3 Diagnostic Findings Chest X-Ray 06/26/25 08:25 XR chest 1V portable CLINICAL HISTORY: hypoxia COMPARISON STUDY: 06/23/2025 FINDINGS: Single view portable chest is improved when compared with the prior study. The left basilar airspace opacity has nearly resolved. There is a patchy residual right basilar airspace opacity that is smaller and less dense compared with the prior examination. No new lung lesions have developed. There is no pneumothorax. There is no sizable pleural effusion. Heart size and pulmonary vascularity are unremarkable for technique. IMPRESSION: Improving bibasilar infiltrates as described. ACT 112: Negative or not required by law. Electronically signed by: Eleanor Walls M.D. 06/26/2025 8:46 AM
[2025-06-26] MEDS: OPTIRAY 320 125ml IV ONE (12:07)
[2025-06-26] MEDS: LANTUS PER UNIT CHARGE SC ONE (13:03)
--- NOTE | 2025-06-26 13:05 | CT Scan Report ---
CT ANGIOGRAM OF THE CHEST CLINICAL HISTORY: Hypoxia COMPARISON STUDY: Chest CT dated 11/08/2024. Chest x-ray dated 06/26/2025. TECHNIQUE: Following the IV administration of 120 cc of Optiray 320, CT angiogram of the chest was pe rformed from the upper abdomen to the thoracic inlet utilizing the pulmonary embolus protocol. Images are reviewed in the axial, sagittal, and coronal planes. 3-D MIPS images are created and assessed. I V contrast was administered without complication. A dose lowering technique was utilized adhering to the principles of ALARA. CT DOSE: 876.87 mGy.cm FINDINGS: Thyroid: Atrophic and heterogeneous. Thoracic aorta: There is atherosclerotic calcification of the thoracic aorta, which is normal in richelle alise and demonstrates standard 3-vessel arch anatomy. No dissection is seen. Pulmonary vasculature: The pulmonary trunk is normal in caliber. There are no filling defects identif ied in main, lobar, or segmental pulmonary branches to suggest pulmonary embolus. Heart: The heart is mild enlargement of the and without pericardial effusion. The coronary arteries a nd evidence of calcified. Lungs and pleural spaces: Moderate emphysematous changes observed. Multifocal patchy/nodular airspace consolidation is seen bilaterally with a lower lung predominance. There are scattered foci of cavita tion within the consolidative change. There are trace pleural effusions. The trachea is clear. Secret ions/debris is seen within the distal left mainstem bronchus in the lower lobe airways bilaterally. Mediastinum: Subcentimeter mediastinal lymph nodes are not pathologically enlarged by size criteria. Bren: Mildly enlarged hilar nodes measure up to 1.5 cm in short axis. Axillae: There is no axillary lymphadenopathy. Upper abdomen: There is a small hiatal hernia. Partially visualized upper abdominal viscera is otherw ise grossly unremarkable. Skeletal structures: No lytic or blastic bony lesions are seen. IMPRESSION: 1. There is no evidence of pulmonary embolus in the main, lobar, or segmental pulmonary arteries. 2. Cardiomegaly and emphysema. 3. Multifocal patchy/nodular consolidation is seen throughout both lungs with a lower lung predominan ce. Several foci of consolidation show foci of cavitation. Additionally, there is fluid/debris fillin g the lower lobe airways and the distal left mainstem bronchus. The appearance favors pneumonia/aspir ation pneumonitis and clinical correlation will be required. Radiographic follow-up to resolution is recommend. 4. Trace pleural effusions. 5. Advanced coronary artery atherosclerosis. 6. Mildly enlarged right hilar nodes are likely reactive. 7. Additional findings as above. ACT 112: Negative or not required by law. Electronically signed by: Dar Chapin M.D. 06/26/2025 1:03 PM
--- NOTE | 2025-06-26 13:11 | Pharmacy Report ---
Pharmacy Glycemic Short Note 2 - Date of Service June 26, 2025 - Glycemic Short BSG Results (Last 24 hours): 06/25/25 06/25/25 06/26/25 16:15 20:46 00:09 Glucose POC Glucose 152 H 145 H 129 H 06/26/25 06/26/25 06/26/25 08:00 08:04 11:34 Glucose 192 H POC Glucose 195 H 243 H 06/26/25 12:09 Glucose POC Glucose 237 H OUTPATIENT ANTIDIABETIC REGIMEN: * Tresiba 30 units SC BID * Novolog SC CR 20 + some correctional * A1c: 8.1% (05/30/25) ASSESSMENT: 06/26: * Cody received a total of 73 units of insulin yesterday (20 units were basal and 53 units were bolus)--He reportedly refused the HS basal insulin last evening. * Fasting BSG was 195mg/dL this morning. Decreased Lantus to 10 units this morning as he was NPO. * Since his diet was resumed, restarted lantus 20 units BID this evening. * Will continue bolus insulin regimen as previously ordered. 06/25: * Cody received 167 units of insulin yesterday, 75 units of which were basal. BSGs were: [phone] mg/dL. * Patient did have a hypoglycemic event last evening around midnight in which he was symptomatic. Treated with 30 g of carbs and BSG improved to 98 mg/dL. Believe this could be due to steroids decreasing as well as too much basal on board. Stacking of Novolog doses could have played a role as well. * Will loosen correction factor which was tightened last evening. Continue same carb ratio. Remains on Ancef, Azithromycin and Prednisone 40 mg PO daily. Tolerating diet. * Fasting BSG this AM was 152 mg/dL. Will reduce basal dose significantly today. 06/24: * T1DM presenting for possible anaphylaxis, hyperglycemic likely secondary to stress response and steroids. Patient now with MSSA bacteremia. * Patient was initially on solumedrol ND, transitioned to oral prednisone today and is eating * Outpatient regimen is basal heavy. Will utilize outpatient regimen in addition to past admission data to help guide dosing. Will tighten novolog scale further today to account for steroid induced post prandial hyperglycemia. PLAN FOR INPATIENT GLYCEMIC CONTROL: * Basal insulin * Lantus 10 units SC this AM then resume 20 units SQ BID this evening * Bolus insulin * NovoLog per scale ACHS or Q6hrs while NPO * Goal Range: Low 110 mg/dL - High 140 mg/dL * Correction Factor: 15 mg/dL/unit * Nutritional / Prandial insulin per carb ratio of 1 unit per 3 grams CHO consumed
[2025-06-26 13:45] LABS: iSTAT Art Bld Gas Base Excess 2.0 meg/L (-9-1.8); iSTAT Art Bld Gas pCO2 Correct 37 mmHg (35-46); iSTAT Art Bld Gas pH Corrected 7.447 (7.35-7.45); iSTAT Arterial Blood Gas pO2 C 31
[2025-06-26] MEDS: HEPARIN SOD 5,000 UNIT/0.5 ML VIAL SQ SCH (14:40)
--- NOTE | 2025-06-26 15:04 | Pulmonology Progress Note ---
Date of Service June 26, 2025 Assessment & Plan (1) Aspiration into airway: (2) Abnormality of esophagus: (3) Hypoxemia: Plan Impression: 64-year-old male admitted with anaphylactoid reaction. Known history of sleep disordered breathing as well as recurrent aspiration or causing recurrent pneumonia. He has known achalasia and is being followed by GI. He had an increase in his oxygen requirement today, possibly related to recurrent aspiration event Recommendations 1. Hypoxemic respiratory failure: Suspect this is related to recurrent aspiration event. Would continue pulmonary toilet including incentive spirometry and flutter valve. Aspiration precautions should be reinforced. Patient is already established with [facility] and apparently had some sort of an achalasia evaluation. Would recommend following up on results of that study. 2. Aspiration events typically do not require antibiotics in the absence of infectious signs or symptoms including leukocytosis, fever etc.. The patient is low so being followed by infectious disease. Will defer antibiotics to them at this point in time. 3. Sleep apnea: Continue CPAP at night. The patient does have debris in his airways and CPAP would be unlikely to eliminate this. Hopefully with coughing and pulmonary toilet the patient will see some improvement. Do not see need urgently to pursue bronchoscopy nor would I pursue intubation mechanical ventilation in this patient at this point in time. Will see how he responds to conservative measures. The above recommendations and plan were discussed with the patient as well as with his at bedside and with the consulting hospitalist Admission and Anticipated Discharge Date Admission Date: June 23, 2025 Subjective Asked by hospitalist to assist in evaluation management of this patient with hypoxemia. The patient is known to me from pulmonary clinic where he is followed for aspiration as well as sleep disordered breathing. I cared for him during earlier hospitalization where he was admitted with an anaphylactoid reaction. Patient has bacteremia and a FANNY was recommended by ID. Patient was taken down for the procedure today but it was aborted due to worsening oxygen requirement. He was returned to the floor. I was contacted by the hospitalist for possible intubation. I assessed the patient on the floor. His oxygen requirement is increased however the patient is very comfortable speaking in full sentences with no increased work of breathing or respiratory distress. CT and chest x- rays as well as blood gases were reviewed. The patient does not report aspiration events. He does have known achalasia Review of Systems Review of Systems: All systems reviewed & are unremarkable except as noted in Subjective Physical Exam Constitutional: WD/WN, vitals as above Neck: trachea midline, no thyromegaly Respiratory: normal respiratory effort, lungs clear to auscultation Cardiovascular: RRR, no murmur, no edema Gastrointestinal (Abdomen): normal bowel sounds, soft, nontender, no hepatosplenomegaly Musculoskeletal: Extremities: extremities normal to inspection Lymphatic: no cervical lymphadenopathy Results & Data Results & Data Vital Signs (Past 12 Hours) Vital Signs Temp Pulse Pulse Resp BP Pulse Ox Pulse Ox 06/26/25 14:03 71 20 97 06/26/25 13:13 71 20 91 06/26/25 13:00 86 L 06/26/25 12:30 88 L 06/26/25 12:00 75 L 06/26/25 11:00 92 06/26/25 10:35 89 L 06/26/25 10:30 79 L 06/26/25 09:07 97 06/26/25 08:22 36.6 C 75 18 191/79 H 95 06/26/25 08:00 06/26/25 07:48 75 20 93 06/26/25 07:43 91 O2 Del Method O2 Del Method O2 Flow Rate O2 Flow Rate FiO2 06/26/25 14:03 High Flow Nasal Cannula 30 40 06/26/25 13:13 Oxymask 12 06/26/25 13:00 Oxymask 12 06/26/25 12:30 Nasal Cannula 8 06/26/25 12:00 Room Air 06/26/25 11:00 CPAP 6 06/26/25 10:35 CPAP 6 06/26/25 10:30 Nasal Cannula 6 06/26/25 09:07 Nasal Cannula 4 06/26/25 08:22 Nasal Cannula 5 06/26/25 08:00 Nasal Cannula 5 06/26/25 07:48 Nasal Cannula 3 06/26/25 07:43 Nasal Cannula 5 Critical Care Results & Data Vital Signs (Past 12 Hours) Vital Signs Temp Pulse Pulse Resp BP Pulse Ox Pulse Ox 06/26/25 14:03 71 20 97 06/26/25 13:13 71 20 91 06/26/25 13:00 86 L 06/26/25 12:30 88 L 06/26/25 12:00 75 L 06/26/25 11:00 92 06/26/25 10:35 89 L 06/26/25 10:30 79 L 06/26/25 09:07 97 06/26/25 08:22 36.6 C 75 18 191/79 H 95 06/26/25 08:00 06/26/25 07:48 75 20 93 06/26/25 07:43 91 O2 Del Method O2 Del Method O2 Flow Rate O2 Flow Rate FiO2 06/26/25 14:03 High Flow Nasal Cannula 30 40 06/26/25 13:13 Oxymask 12 06/26/25 13:00 Oxymask 12 06/26/25 12:30 Nasal Cannula 8 06/26/25 12:00 Room Air 06/26/25 11:00 CPAP 6 06/26/25 10:35 CPAP 6 06/26/25 10:30 Nasal Cannula 6 06/26/25 09:07 Nasal Cannula 4 06/26/25 08:22 Nasal Cannula 5 06/26/25 08:00 Nasal Cannula 5 06/26/25 07:48 Nasal Cannula 3 06/26/25 07:43 Nasal Cannula 5 Lab & Micro Results (Past 24 Hours) RBC 3.35 M/uL (4.70-6.10) L 06/26/25 WBC 10.05 K/ul (4.8-10.8) 06/26/25 Hgb 10.5 g/dl (14.0-18.0) L 06/26/25 Hct 31.2 % (42.0-52.0) L 06/26/25 MCV 93.1 fL (80.0-100.0) 06/26/25 MCH 31.3 pg (25.0-34.0) 06/26/25 MCHC 33.7 g/dL (32.0-36.0) 06/26/25 RDW Standard Deviation 45.0 fL (36.4-46.3) 06/26/25 RDW Coefficient of Variation 13.0 % (11.5-14.5) 06/26/25 Plt Count 243 K/uL (130-400) 06/26/25 MPV 10.2 fL (9.4-12.4) 06/26/25 Nucleated Red Blood Cells % (auto) 0.2 % 06/26 Nucleated RBC Absolute Count (auto) 0.02 K/uL (0.00-0.12) 0 06/26/25 Neutrophils (%) (Auto) 69.8 % 06/26/25 Lymphocytes (%) (Auto) 19.1 % 06/26/25 Monocytes # (Auto) 0.87 K/uL (0.11-0.59) H 06/26/25 Eosinophils # (Auto) 0.03 K/uL (0.00-0.50) 06/26/25 Immature Granulocyte % (Auto) 2.0 % 06/26/25 Neutrophils # (Auto) 7.02 K/uL (1.40-6.50) H 06/26/25 Lymphocytes # (Auto) 1.92 K/uL (1.20-3.40) 06/26/25 Monocytes # (Auto) 0.87 K/uL (0.11-0.59) H 06/26/25 Eosinophils # (Auto) 0.03 K/uL (0.00-0.50) 06/26/25 Basophils # (Auto) 0.01 K/uL (0.00-0.20) 06/26/25 Immature Granulocyte # (Auto) 0.20 K/uL (0.01-0.20) 5 Na 132 mmol/L (136-145) L 06/26/25 K 3.9 mmol/L (3.5-5.1) 06/26/25 Cl 101 mmol/L (98-107) 06/26/25 CO2 26 mmol/L (21-32) 06/26/25 Anion Gap 5 (3-11) 06/26/25 BUN 21 mg/dl (6-23) 06/26/25 Creatinine 0.85 mg/dl (0.6-1.4) 06/26/25 BUN/Creatinine Ratio 24.7 (10-20) H 06/26/25 Glu 192 mg/dl (70-99(Fasting)) H 06/26/25 Ca 8.6 mg/dl (8.6-10.3) 06/26/25 Phosphorus Level 1.9 mg/dl (2.5-4.9) L 06/26/25 Mg 2.1 mg/dl (1.7-2.4) 06/26/25 08:04 Calcium Level 8.6 mg/dl (8.6-10.3) 06/26/25 08:04 David Test Pass 06/26/25 13:06 Microbiology 06/26/25 09:45 Gram Stain - Final Sputum, Expectorated Sputum Culture - Final 06/23/25 03:48 Aerobic Blood Culture - Preliminary Blood Staphylococcus epidermidis Anaerobic Blood Culture - Preliminary No growth in Anaerobic bottle after 48 hours. 06/24/25 16:46 Aerobic Blood Culture - Preliminary Blood No growth in Aerobic bottle after 24 hours. Anaerobic Blood Culture - Preliminary No growth in Anaerobic bottle after 24 hours. 06/24/25 16:46 Aerobic Blood Culture - Preliminary Blood No growth in Aerobic bottle after 24 hours. Anaerobic Blood Culture - Preliminary No growth in Anaerobic bottle after 24 hours. 06/23/25 03:53 Aerobic Blood Culture - Final Blood Bacill.sp.Not anthracis/cereus Anaerobic Blood Culture - Final Staphylococcus aureus 06/23/25 13:30 Gram Stain - Final Sputum, Expectorated Sputum Culture - Final Staphylococcus aureus Diagnostic Findings (Past 24 Hours) Chest X-Ray 06/26/25 08:25 XR chest 1V portable CLINICAL HISTORY: hypoxia COMPARISON STUDY: 06/23/2025 FINDINGS: Single view portable chest is improved when compared with the prior study. The left basilar airspace opacity has nearly resolved. There is a patchy residual right basilar airspace opacity that is smaller and less dense compared with the prior examination. No new lung lesions have developed. There is no pneumothorax. There is no sizable pleural effusion. Heart size and pulmonary vascularity are unremarkable for technique. IMPRESSION: Improving bibasilar infiltrates as described. ACT 112: Negative or not required by law. Electronically signed by: Eleanor Walls M.D. 06/26/2025 8:46 AM Chest CTA 06/26/25 10:51 CT ANGIOGRAM OF THE CHEST CLINICAL HISTORY: Hypoxia COMPARISON STUDY: Chest CT dated 11/08/2024. Chest x-ray dated 06/26/2025. TECHNIQUE: Following the IV administration of 120 cc of Optiray 320, CT angiogram of the chest was performed from the upper abdomen to the thoracic inlet utilizing the pulmonary embolus protocol. Images are reviewed in the axial, sagittal, and coronal planes. 3-D MIPS images are created and assessed. IV contrast was administered without complication. A dose lowering technique was utilized adhering to the principles of ALARA. CT DOSE: 876.87 mGy.cm FINDINGS: Thyroid: Atrophic and heterogeneous. Thoracic aorta: There is atherosclerotic calcification of the thoracic aorta, which is normal in caliber and demonstrates standard 3-vessel arch anatomy. No dissection is seen. Pulmonary vasculature: The pulmonary trunk is normal in caliber. There are no filling defects identified in main, lobar, or segmental pulmonary branches to suggest pulmonary embolus. Heart: The heart is mild enlargement of the and without pericardial effusion. The coronary arteries and evidence of calcified. Lungs and pleural spaces: Moderate emphysematous changes observed. Multifocal patchy/nodular airspace consolidation is seen bilaterally with a lower lung predominance. There are scattered foci of cavitation within the consolidative change. There are trace pleural effusions. The trachea is clear. Secretions/debris is seen within the distal left mainstem bronchus in the lower lobe airways bilaterally. Mediastinum: Subcentimeter mediastinal lymph nodes are not pathologically enlarged by size criteria. Bren: Mildly enlarged hilar nodes measure up to 1.5 cm in short axis. Axillae: There is no axillary lymphadenopathy. Upper abdomen: There is a small hiatal hernia. Partially visualized upper abdominal viscera is otherwise grossly unremarkable. Skeletal structures: No lytic or blastic bony lesions are seen. IMPRESSION: 1. There is no evidence of pulmonary embolus in the main, lobar, or segmental pulmonary arteries. 2. Cardiomegaly and emphysema. 3. Multifocal patchy/nodular consolidation is seen throughout both lungs with a lower lung predominance. Several foci of consolidation show foci of cavitation. Additionally, there is fluid/debris filling the lower lobe airways and the distal left mainstem bronchus. The appearance favors pneumonia/aspiration pneumonitis and clinical correlation will be required. Radiographic follow-up to resolution is recommend. 4. Trace pleural effusions. 5. Advanced coronary artery atherosclerosis. 6. Mildly enlarged right hilar nodes are likely reactive. 7. Additional findings as above. ACT 112: Negative or not required by law. Electronically signed by: Dar Chapin M.D. 06/26/2025 1:03 PM I & O Totals 24 Hours 06/25/25 06/26/25 06/27/25 06:59 06:59 06:59 Intake Total 1899.333 / 1899.333 720 / 720 Output Total 8000 / 8000 Balance -6100.667 / -6100.667 720 / 720 Cumulative 06/23/25 02:39 thru 06/26/25 07:07 Intake Total 6449.333 Output Total 59538 Balance -4675.667 RT Ventilator Mngmt (Last Documented) Ventilator Ordered Settings Respiratory Rate 20 06/26/25 14:03 Fraction of Inspired Oxygen 40 06/26/25 14:03 Ventilator - PT Measurements Respiratory Rate 20 PG Care Time/CCT Total # of Minutes Spent Total Time Spent with Patient: Total time spent is greater than 50% in coordination of care (as documented) at patient's floor/unit and/or counseling patient: Coding Level of Care Code 98360 SUB INP/OBS CARE 3/50MIN Diagnoses Aspiration into airway T17.908A Abnormality of esophagus K22.9 Hypoxemia R09.02
[2025-06-26] MEDS: LOSARTAN POTASSIUM 50 MG TAB PO SCH (15:51)
[2025-06-26] MEDS: BUMETANIDE 1 MG TAB PO ONE (15:51)
[2025-06-26] MEDS: LANTUS PER UNIT CHARGE SC SCH (21:29)
--- NOTE | 2025-06-26 22:23 | Hospitalist Progress Note ---
Date of Service June 26, 2025 Assessment & Plan (1) Rash: (2) Multifocal pneumonia: (3) Hyponatremia: (4) CAD (coronary atherosclerotic disease): (5) Diabetes mellitus type 1, uncontrolled: (6) COPD (chronic obstructive pulmonary disease): (7) Acquired blindness: Plan 64yo male with multiple medical comorbidities presenting with severe allergic reaction - rash with anaphylaxis. Etiology unclear. Possible rash secondary to Plavix, possible infectious. #Pneumonia Acute hypocxic respiratory failure Now in acute hypoxic respiratory failure, unable to get his FANNY. Throughout the day patient became more hypoxic, and required 30 liters high flow. Had to visit patient multiple times and discussed case with pulmonary. Patient will be transferred to PCU. concern that patient may have aspirated again, hold off anaerobic coverage. now requiring high flow oxygen No signs of fever. - CXR suggestive of bilateral lower lobe PNA. . Respiratory biofire panel is negative, MRSA nares negative . -Follow blood cultures: showing staph aureus. -now on cefazolin and Azithromycin - will consult ID due to bacteremia. 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 Inciting event unknown. Patient remains hemodynamically stable following administration of epinephrine IM and IV. No airway involvement. No desquamation or blistering -Admit to MICU -Improved rash, no longer requires ICY. will continue corticosteroids as noted below. -Treatment with Solumedrol 40mg IV BID/ transitioned to prednisone -Pepcid 20mg IV BID and 40mg po qHS -Benadryl 50mg IV q 6 hours -Continue Fexofenadine -Continue Montelukast -resume bp meds -resolved #NITIN/Hyperkalemia- patient with NITIN on CKD. Cr today=1.73, increased from most recently 1.34. Hyperkalemia with K=6.9 s/p treatment with IVF, Insulin/D50, Calcium gluconate and Albuterol -Continue hydration -Avoid nephrotoxic medications -Renal dosing where needed #Hyponatremia - chronic. Patient is on salt tablets daily. Na rgnhc=[id number], slightly lower than baseline -Continue hydration -Continue salt tablets #DM -Glycemic management per MICU #COPD -Continue Trelegy or formulary equivalent -Xopenex PRN -Supplemental O2 as needed LUZMA-BiPAP at night #BPH -Continue Flomax #CAD/possible TIA -Continue ASA -Holding Plavix, possibly contributing to rash -Continue Atorvastatin Admission and Anticipated Discharge Date Admission Date: June 23, 2025 Subjective Patient reorts being more SOB today. Patient with difficulty coughing up sputum Physical Exam Physical Exam: General: NAD, answering questions appropriately and following commands Skin: rash is gone HEENT: NC/AT, absence of eyes bilaterally, ears red, swollen bilaterally Heart: +S1/S2, regular, no m/r/g Lungs: clear Abd: +BS, soft, NT/ND, no masses/organomegaly/ascites Ext: warm, 2+ pulses in UE/LE bilaterally, no clubbing/cyanosis or edema Results & Data Results & Data Vital Signs (Past 12 Hours) Vital Signs Temp Pulse Pulse Pulse Resp BP Pulse Ox 06/26/25 19:35 36.8 C 68 16 173/76 H 96 06/26/25 19:11 72 17 99 06/26/25 16:37 71 06/26/25 15:23 36.5 C 66 16 191/75 H 99 06/26/25 15:20 06/26/25 14:03 71 20 97 06/26/25 13:13 71 20 91 06/26/25 13:00 06/26/25 12:30 06/26/25 12:00 06/26/25 11:00 06/26/25 10:35 06/26/25 10:30 Pulse Ox O2 Del Method O2 Del Method O2 Flow Rate O2 Flow Rate FiO2 06/26/25 19:35 High Flow Nasal Cannula 30 06/26/25 19:11 High Flow Nasal Cannula 15 35 06/26/25 16:37 06/26/25 15:23 High Flow Nasal Cannula 06/26/25 15:20 High Flow Nasal Cannula 06/26/25 14:03 High Flow Nasal Cannula 30 40 06/26/25 13:13 Oxymask 12 06/26/25 13:00 86 L Oxymask 12 06/26/25 12:30 88 L Nasal Cannula 8 06/26/25 12:00 75 L Room Air 06/26/25 11:00 92 CPAP 6 06/26/25 10:35 89 L CPAP 6 06/26/25 10:30 79 L Nasal Cannula 6 PG Care Time/CCT Total # of Minutes Spent Total Time Spent with Patient: Total time spent is greater than 50% in coordination of care (as documented) at patient's floor/unit and/or counseling patient: Prolonged Care Time Prolonged Care Time: Yes Total Prolonged Care Time: 120 9:30 to 9:45 12:30 to 1:00 1:10 to 2:00 16:00 to 16:35 Coding Level of Care Code 83513 SUB INP/OBS CARE 3/50MIN (25 - SIGNIFICANT, SEPARATELY IDENTIFIABLE ) Diagnoses Rash R21 Multifocal pneumonia J18.9 Hyponatremia E87.1 CAD (coronary atherosclerotic disease) I25.10 Uncontrolled type 1 diabetes mellitus with hyperglycemia E10.65 Chronic bronchitis, unspecified chronic bronchitis type J44.9 COPD type: unspecified COPD Acquired blindness H54.7 Additional Codes Prolonged Care Time - Prolonged Care Time: Yes ([id number]) (6) COPD (chronic obstructive pulmonary disease) COPD type: unspecified COPD Qualified Code(s): J44.9 - Chronic obstructive pulmonary disease, unspecified
[2025-06-27 07:47] LABS: Hematocrit (blood only) 29.4 % (42.0-52.0); Hemoglobin 10.0 g/dl (14.0-18.0); Mean Corpuscular Hemoglobin 31.6 pg (25.0-34.0); Mean Corpuscular Volume 93.0 fL (80.0-100.0); Platelet Count 244 K/uL (130-400); RDW Standard Deviation 43.8 fL (36.4-46.3); Red Blood Count 3.16 M/uL (4.70-6.10); White Blood Count 8.33 K/ul (4.8-10.8)
[2025-06-27 08:09] LABS: Alanine Aminotransferase 11.0 U/L (7-52); Albumin Globulin Ratio 1.0 (0.9-2); Alkaline Phosphatase 55.0 U/L (34-104); Anion Gap 6.0 (3-11); Bilirubin,Total 0.4 mg/dl (0.2-1.0); Blood Urea Nitrogen 20.0 mg/dl (6-23); Calcium 8.7 mg/dl (8.6-10.3); Carbon Dioxide 28.0 mmol/L (21-32); Chloride 100.0 mmol/L (98-107); Creatinine Clr Calc Pharmacy 100.9 ml/min; Globulin 3.1 gm/dl (2.5-4.0); Glucose 125.0 mg/dl (70-99(Fasting)); Magnesium 2.2 mg/dl (1.7-2.4); Potassium 3.6 mmol/L (3.5-5.1); Sodium 134.0 mmol/L (136-145); Total Protein 6.3 gm/dl (6.0-8.3)
--- NOTE | 2025-06-27 08:24 | Pulmonology Progress Note ---
Date of Service June 27, 2025 Assessment & Plan (1) Aspiration into airway: (2) Abnormality of esophagus: (3) Hypoxemia: Plan Impression: 64-year-old male admitted with anaphylactoid reaction. Known history of sleep disordered breathing as well as recurrent aspiration or causing recurrent pneumonia. He has known achalasia and is being followed by GI at [facility]. He had attempted FANNY performed yesterday and probably suffered an aspiration event but appears to be improving today. Recommendations 1. Hypoxemic respiratory failure: Suspect this is related to recurrent aspiration event. Would continue pulmonary toilet including incentive spirometry and flutter valve. Aspiration precautions should be reinforced. Patient is already established with [facility] and apparently had some sort of an achalasia evaluation. Would recommend following up on results of that study. Wean oxygen as tolerated 2. Defer antibiotics to ID 3. Sleep apnea: Continue CPAP at night. The patient does have debris in his airways and CPAP would be unlikely to eliminate this. Hopefully with coughing and pulmonary toilet the patient will see some improvement. Will continue to follow Admission and Anticipated Discharge Date Admission Date: June 23, 2025 Subjective Patient seen and examined. EMR reviewed. The patient is seen at the bedside. He is sitting up in bed. He states he is feeling much better. He used his positive airway pressure last night in conjunction with some supplemental oxygen and slept reasonably well. He does have a slight headache this morning. He is coughing. He is not using his pulmonary toilet devices as often as he should. He has no new respiratory concerns today and overall feels better Review of Systems 2 Review of Systems: All systems reviewed & are unremarkable except as noted in Subjective Physical Exam 2 Constitutional: WD/WN, vitals as above Neck: trachea midline, no thyromegaly Respiratory: normal respiratory effort, lungs clear to auscultation Cardiovascular: RRR, no murmur, no edema Gastrointestinal (Abdomen): normal bowel sounds, soft, nontender, no hepatosplenomegaly Musculoskeletal: Extremities: extremities normal to inspection Lymphatic: no cervical lymphadenopathy Results & Data Results & Data Vital Signs (Past 12 Hours) Vital Signs Temp Pulse Pulse Pulse Resp BP Pulse Ox 06/27/25 07:15 68 16 96 06/27/25 02:33 36.6 C 70 16 178/75 H 97 06/27/25 00:00 76 06/26/25 23:48 36.4 C L 70 20 184/73 H 95 06/26/25 21:00 O2 Del Method O2 Flow Rate 06/27/25 07:15 BiPAP 5 06/27/25 02:33 Nasal Cannula 4 06/27/25 00:00 06/26/25 23:48 Nasal Cannula 4 06/26/25 21:00 High Flow Nasal Cannula 4 Laboratory Results 06/27/25 07:08 06/27/25 07:08 Diagnostic Findings No new imaging PG Care Time/CCT Total # of Minutes Spent Total Time Spent with Patient: Total time spent is greater than 50% in coordination of care (as documented) at patient's floor/unit and/or counseling patient: Coding Level of Care Code 96697 SUB INP/OBS CARE 2/35MIN Diagnoses Aspiration into airway T17.908A Abnormality of esophagus K22.9 Hypoxemia R09.02
[2025-06-27] MEDS: CALCIUM CARBONATE 500 MG CHEWABLE TAB PO PRN (14:18)
--- NOTE | 2025-06-27 22:53 | Hospitalist Progress Note ---
Date of Service June 27, 2025 Assessment & Plan (1) Rash: (2) Multifocal pneumonia: (3) Hyponatremia: (4) CAD (coronary atherosclerotic disease): (5) Diabetes mellitus type 1, uncontrolled: (6) COPD (chronic obstructive pulmonary disease): (7) Acquired blindness: Plan 64yo male with multiple medical comorbidities presenting with severe allergic reaction - rash with anaphylaxis. Etiology unclear. Possible rash secondary to Plavix, possible infectious. #Rash/Anaphylaxis - diffuse, symmetrical, erythematous, pruritic, urticarial rash - sparing of palms/soles/mucus membranes. Inciting event unknown. Patient remains hemodynamically stable following administration of epinephrine IM and IV. No airway involvement. No desquamation or blistering -Admit to MICU -Improved rash, no longer requires ICY. will continue corticosteroids as noted below. -Treatment with Solumedrol 40mg IV BID/ transition to prednisone -Pepcid 20mg IV BID and 40mg po qHS -Benadryl 50mg IV q 6 hours -Continue Fexofenadine -Continue Montelukast -resume bp meds -resolved #Pneumonia Acute hypoxic respiratory failure Now improved, back on nasal cannula. will continue current antibiotics and pulmonary toilet - CXR suggestive of bilateral lower lobe PNA. . Respiratory biofire panel is negative, MRSA nares negative . -Follow blood cultures: showing staph aureus. -now on cefazolin and Azithromycin - will consult ID due to bacteremia. CTA negative for p/e, #NITIN/Hyperkalemia- patient with NITIN on CKD. Cr today=1.73, increased from most recently 1.34. Hyperkalemia with K=6.9 s/p treatment with IVF, Insulin/D50, Calcium gluconate and Albuterol -Continue hydration -Avoid nephrotoxic medications -Renal dosing where needed #Hyponatremia - chronic. Patient is on salt tablets daily. Na [id number], slightly lower than baseline -Continue hydration -Continue salt tablets #DM -Glycemic management per MICU #COPD -Continue Trelegy or formulary equivalent -Xopenex PRN -Supplemental O2 as needed LUZMA-BiPAP at night #BPH -Continue Flomax #CAD/possible TIA -Continue ASA -Holding Plavix, possibly contributing to rash -Continue Atorvastatin Admission and Anticipated Discharge Date Admission Date: June 23, 2025 Subjective Patient reporting some improvement. But still states that he is having dificulty coughing up sputum Physical Exam Physical Exam: General: NAD, answering questions appropriately and following commands Skin: rash is gone HEENT: NC/AT, absence of eyes bilaterally, ears red, swollen bilaterally Heart: +S1/S2, regular, no m/r/g Lungs: left sided rhonchi Abd: +BS, soft, NT/ND, no masses/organomegaly/ascites Ext: warm, 2+ pulses in UE/LE bilaterally, no clubbing/cyanosis or edema Results & Data Results & Data Vital Signs (Past 12 Hours) Vital Signs Temp Pulse Pulse Pulse Resp BP Pulse Ox 06/27/25 20:05 73 19 98 06/27/25 19:26 37.0 C 71 25 H 98 06/27/25 15:48 36.7 C 72 20 189/71 H 96 06/27/25 15:23 70 18 94 06/27/25 14:01 69 06/27/25 11:26 37.0 C 72 18 172/74 H 95 O2 Del Method O2 Flow Rate 06/27/25 20:05 Nasal Cannula 3 06/27/25 19:26 Nasal Cannula 4 06/27/25 15:48 Nasal Cannula 4.0 06/27/25 15:23 Nasal Cannula 4 06/27/25 14:01 06/27/25 11:26 Nasal Cannula 2 PG Care Time/CCT Total # of Minutes Spent Total Time Spent with Patient: Total time spent is greater than 50% in coordination of care (as documented) at patient's floor/unit and/or counseling patient: Coding Level of Care Code 32380 SUB INP/OBS CARE 3/50MIN Diagnoses Rash R21 Multifocal pneumonia J18.9 Hyponatremia E87.1 CAD (coronary atherosclerotic disease) I25.10 Uncontrolled type 1 diabetes mellitus with hyperglycemia E10.65 Chronic bronchitis, unspecified chronic bronchitis type J44.9 COPD type: unspecified COPD Acquired blindness H54.7 (6) COPD (chronic obstructive pulmonary disease) COPD type: unspecified COPD Qualified Code(s): J44.9 - Chronic obstructive pu lmonary disease, unspecified
[2025-06-28 06:17] LABS: Hematocrit (blood only) 32.5 % (42.0-52.0); Hemoglobin 10.7 g/dl (14.0-18.0); Mean Corpuscular Hemoglobin 30.6 pg (25.0-34.0); Mean Corpuscular Volume 92.9 fL (80.0-100.0); Platelet Count 303 K/uL (130-400); RDW Standard Deviation 44.2 fL (36.4-46.3); Red Blood Count 3.50 M/uL (4.70-6.10); White Blood Count 10.26 K/ul (4.8-10.8)
[2025-06-28 06:46] LABS: Anion Gap 8.0 (3-11); Blood Urea Nitrogen 17.0 mg/dl (6-23); Calcium 8.7 mg/dl (8.6-10.3); Carbon Dioxide 28.0 mmol/L (21-32); Chloride 99.0 mmol/L (98-107); Creatinine Clr Calc Pharmacy 113.4 ml/min; Glucose 92.0 mg/dl (70-99(Fasting)); Magnesium 2.2 mg/dl (1.7-2.4); Potassium 3.6 mmol/L (3.5-5.1); Sodium 135.0 mmol/L (136-145)
[2025-06-28] MEDS ORDERED: PROCHLORPERAZINE 10 MG in SYRINGE 8 ML IV ONE (08:19)
[2025-06-28] MEDS: METOCLOPRAMIDE HCL INJ 5 MG/ML 2 ML VIAL IV STA (08:39)
[2025-06-28] MEDS: diphenhydrAMINE 50 MG/ML VIAL IV STA (08:39)
[2025-06-28] MEDS: predniSONE 20 MG TAB PO SCH (08:41)
--- NOTE | 2025-06-28 08:45 | Pulmonology Progress Note ---
Date of Service June 28, 2025 Assessment & Plan (1) Aspiration into airway: (2) Abnormality of esophagus: (3) Hypoxemia: Plan Impression: 64-year-old male admitted with anaphylactoid reaction. Known history of sleep disordered breathing as well as recurrent aspiration or causing recurrent pneumonia. He has known achalasia and is being followed by GI at [facility]. He had attempted FANNY performed yesterday and probably suffered an aspiration event but appears to be improving today. Recommendations 1. Hypoxemic respiratory failure: Suspect this is related to recurrent aspiration event. Improved today. Would continue pulmonary toilet including incentive spirometry and flutter valve. Aspiration precautions should be reinforced. Patient is already established with [facility] and apparently had some sort of an achalasia evaluation. Would recommend following up on results of that study. Wean oxygen as tolerated 2. Defer antibiotics to ID 3. Sleep apnea: Continue CPAP at night. The patient does have debris in his airways and CPAP would be unlikely to eliminate this. Hopefully with coughing and pulmonary toilet the patient will see some improvement. Will continue to follow Admission and Anticipated Discharge Date Admission Date: June 23, 2025 Subjective Patient seen and examined. EMR reviewed. The patient reports he is doing well clinically. He did have an episode of difficulty clearing some Secretions earlier this morning however that appears to have improved. He is currently undergoing vest therapy. He is unclear if this is beneficial. He is not wheezing. He overall feels improved compared to yesterday Review of Systems 2 Review of Systems: All systems reviewed & are unremarkable except as noted in Subjective Physical Exam 2 Constitutional: WD/WN, vitals as above Neck: trachea midline, no thyromegaly Respiratory: normal respiratory effort, lungs clear to auscultation Cardiovascular: RRR, no murmur, no edema Gastrointestinal (Abdomen): normal bowel sounds, soft, nontender, no hepatosplenomegaly Musculoskeletal: Extremities: extremities normal to inspection Lymphatic: no cervical lymphadenopathy Results & Data Results & Data Vital Signs (Past 12 Hours) Vital Signs Temp Pulse Pulse Pulse Resp BP Pulse Ox 06/28/25 07:51 36.4 C L 81 22 179/69 H 91 06/28/25 07:20 63 06/28/25 07:11 76 18 91 06/28/25 03:07 36.4 C L 68 20 178/85 H 95 06/28/25 00:00 66 06/27/25 22:54 36.7 C 66 20 194/71 H 94 06/27/25 21:00 O2 Del Method O2 Flow Rate 06/28/25 07:51 Nasal Cannula 3 06/28/25 07:20 06/28/25 07:11 Nasal Cannula 2 06/28/25 03:07 BiPAP 06/28/25 00:00 06/27/25 22:54 BiPAP 06/27/25 21:00 Nasal Cannula, BiPAP 2 Laboratory Results 06/28/25 05:38 06/28/25 05:38 Diagnostic Findings No new imaging PG Care Time/CCT Total # of Minutes Spent Total Time Spent with Patient: Total time spent is greater than 50% in coordination of care (as documented) at patient's floor/unit and/or counseling patient: Coding Level of Care Code 25635 SUB INP/OBS CARE 2/35MIN Diagnoses Aspiration into airway T17.908A Abnormality of esophagus K22.9 Hypoxemia R09.02
--- NOTE | 2025-06-28 23:02 | Hospitalist Progress Note ---
Date of Service June 28, 2025 Assessment & Plan (1) Rash: (2) Multifocal pneumonia: (3) Hyponatremia: (4) CAD (coronary atherosclerotic disease): (5) Diabetes mellitus type 1, uncontrolled: (6) COPD (chronic obstructive pulmonary disease): (7) Acquired blindness: Plan 64yo male with multiple medical comorbidities presenting with severe allergic reaction - rash with anaphylaxis. Etiology unclear. Possible rash secondary to Plavix, possible infectious. #Rash/Anaphylaxis - diffuse, symmetrical, erythematous, pruritic, urticarial rash - sparing of palms/soles/mucus membranes. Inciting event unknown. Patient remains hemodynamically stable following administration of epinephrine IM and IV. No airway involvement. No desquamation or blistering -Admit to MICU -Improved rash, no longer requires ICY. will continue corticosteroids as noted below. -Treatment with Solumedrol 40mg IV BID/ transition to prednisone -Pepcid 20mg IV BID and 40mg po qHS -Benadryl 50mg IV q 6 hours -Continue Fexofenadine -Continue Montelukast -resume bp meds -resolved #Pneumonia Acute hypoxic respiratory failure Now improved, back on nasal cannula. will continue current antibiotics and pulmonary toilet - CXR suggestive of bilateral lower lobe PNA. . Respiratory biofire panel is negative, MRSA nares negative . -Follow blood cultures: showing staph aureus. -now on cefazolin and Azithromycin - will consult ID due to bacteremia. CTA negative for p/e. Oxygen level has been slowly improving. May consider getting FANNY tomorrow. #NITIN/Hyperkalemia- patient with NITIN on CKD. Cr today=1.73, increased from most recently 1.34. Hyperkalemia with K=6.9 s/p treatment with IVF, Insulin/D50, Calcium gluconate and Albuterol -Continue hydration -Avoid nephrotoxic medications -Renal dosing where needed #Hyponatremia - chronic. Patient is on salt tablets daily. Na [id number], slightly lower than baseline -Continue hydration -Continue salt tablets #DM -Glycemic management per MICU #COPD -Continue Trelegy or formulary equivalent -Xopenex PRN -Supplemental O2 as needed LUZMA-BiPAP at night #BPH -Continue Flomax #CAD/possible TIA -Continue ASA -Holding Plavix, possibly contributing to rash -Continue Atorvastatin Admission and Anticipated Discharge Date Admission Date: June 23, 2025 Subjective 64 yo male reports no new symptoms. Patient continues to cough. Physical Exam Physical Exam: General: NAD, answering questions appropriately and following commands Skin: rash is gone HEENT: NC/AT, absence of eyes bilaterally, ears red, swollen bilaterally Heart: +S1/S2, regular, no m/r/g Lungs: left sided rhonchi Abd: +BS, soft, NT/ND, no masses/organomegaly/ascites Ext: warm, 2+ pulses in UE/LE bilaterally, no clubbing/cyanosis or edema Results & Data Results & Data Vital Signs (Past 12 Hours) Vital Signs Temp Pulse Pulse Pulse Resp BP Pulse Ox 06/28/25 19:59 80 18 95 06/28/25 19:08 36.7 C 66 18 186/69 H 93 06/28/25 15:48 36.6 C 70 20 177/71 H 94 06/28/25 13:41 70 06/28/25 11:49 36.5 C 69 20 191/78 H O2 Del Method O2 Flow Rate 06/28/25 19:59 Nasal Cannula 2 06/28/25 19:08 Nasal Cannula 2 06/28/25 15:48 Nasal Cannula 2 06/28/25 13:41 06/28/25 11:49 Nasal Cannula 2 PG Care Time/CCT Total # of Minutes Spent Total Time Spent with Patient: Total time spent is greater than 50% in coordination of care (as documented) at patient's floor/unit and/or counseling patient: Coding Level of Care Code 03256 SUB INP/OBS CARE 3/50MIN Diagnoses Rash R21 Multifocal pneumonia J18.9 Hyponatremia E87.1 CAD (coronary atherosclerotic disease) I25.10 Uncontrolled type 1 diabetes mellitus with hyperglycemia E10.65 Chronic bronchitis, unspecified chronic bronchitis type J44.9 COPD type: unspecified COPD Acquired blindness H54.7 (6) COPD (chronic obstructive pulmonary disease) COPD type: unspecified COPD Qualified Code(s): J44.9 - Chronic obstructive pulmonary disease, unspecified
[2025-06-29] MEDS: DEXTROSE 50% 50 ML SYRINGE IV PRN (03:57)
[2025-06-29 07:14] LABS: Anion Gap 8.0 (3-11); Blood Urea Nitrogen 16.0 mg/dl (6-23); Calcium 8.4 mg/dl (8.6-10.3); Carbon Dioxide 26.0 mmol/L (21-32); Chloride 100.0 mmol/L (98-107); Creatinine Clr Calc Pharmacy 112.2 ml/min; Glucose 121.0 mg/dl (70-99(Fasting)); Magnesium 2.1 mg/dl (1.7-2.4); Potassium 3.7 mmol/L (3.5-5.1); Sodium 134.0 mmol/L (136-145)
[2025-06-29] MEDS ORDERED: Nursing to Pharmacy Communication SCH ×2 (07:15→10:15)
--- NOTE | 2025-06-29 09:44 | Pulmonology Progress Note ---
Date of Service June 29, 2025 Assessment & Plan (1) Aspiration into airway: (2) Abnormality of esophagus: (3) Hypoxemia: Plan Impression: 64-year-old male admitted with anaphylactoid reaction. Known history of sleep disordered breathing as well as recurrent aspiration or causing recurrent pneumonia. He has known achalasia and is being followed by GI at [facility]. He had attempted FANNY performed on 06/26/2025 and probably suffered an aspiration event but appears to slowly improving. Recommendations 1. Hypoxemic respiratory failure: Suspect this is related to recurrent aspiration event. Stable to slowly improving. Continue pulmonary toilet including incentive spirometry, flutter valve, and therapvest. Continue 7% NaCl nebs, Anoro ellipta, and flovent. Aspiration precautions should be reinforced. Patient is already established with [facility] and apparently had some sort of an achalasia evaluation. Would recommend following up on results of that study. Wean oxygen as tolerated. Patient may need oxygen upon discharge for short term need. Would recommend 2 step prior to discharge. Will reengage speech therapy to evaluate for any further need for diet modification in setting of recurrent pneumonia from aspiration. Once discharged would recommend CT scan chest in 6-8 weeks with pulmonary outpatietn follow up. 2. Defer antibiotics to ID. Sputum on 06/23/2025 grew pansusceptible staph. Patient is on cefazolin for staph bacteremia which should provide adequate coverage. Most recent sputum culture on 06/26/25 showed upper respiratory contamination. 3. Sleep apnea: Continue CPAP at night. The patient does have debris in his airways and CPAP would be unlikely to eliminate this. Hopefully with coughing and pulmonary toilet the patient will see some improvement. Pulmonary to sign off at this time. Please feel free to reach out with questions or concerns. 35 minutes is the time spent reviewing the chart, obtaining history, performing the physical exam, and updating the patient family, and coordinating with the primary team. Admission and Anticipated Discharge Date Admission Date: June 23, 2025 Supervising Physician Co-Signing Physician Notes I have seen and evaluated the patient with the [employer]ER. I agree with the documented findings and plan in addition to the following. Infectious diseases managing antibiotics. On cefazolin. FANNY is pending. Patient is improving clinically not requiring much oxygen today. Will likely require antibiotics for a number of days and may even require oxygen prior to discharge from hospital. Please ensure that he is qualified for oxygen prior to discharge. He will need repeat imaging of the chest in approximately 8 weeks in the outpatient setting. The patient and are wanting to have speech therapy consulted again to ensure that he is on the appropriate diet and not actively aspirating while he is eating. Continue pulmonary toilet and inhalers. Pulmonary will sign off at this time and follow-up in the outpatient setting. Please reach back with any questions. Subjective "I have coughing fits and feel short of breath but otherwise my breathing does not feel bad." Patient on 2L nasal cannula this am. Oxygen attempted to wean to off but SpO2 dropped to 89%. Patient continues to have coughing episodes which are productive of ortez phlegm. Patient supposed to have FANNY today but cancelled. From a pulmonary perspective patient is cleared to move forward with FANNY. Review of Systems 2 Review of Systems: All systems reviewed & are unremarkable except as noted in HPI & below Physical Exam 2 Physical Exam: VITALS: Reviewed. WEIGHT/BMI reviewed. GEN: State age appearing, well-developed, NAD. PSYCH: Good Judgment. AOx3. Normal memory, mood, and affect. HEENT -Head: NC/AT; -Eyes: Patient blind. No discharge noted . -Ears: External ears are normal. -Nose: Normal nares. NECK: Supple, with no masses. CV: RRR, no m/r/g. LUNGS: Mild wheezing and rhonchi noted in b/l upper and lower lung bhat. Chest rise symmetrical. Breathing nonlabored. ABD: Soft, NT/ND, NBS, no masses or organomegaly. : N/A SKIN: Warm, well perfused. No skin rashes or abnormal lesions. MSK: No deformities, Normal gait. EXT: No clubbing, cyanosis, or edema. NEURO: Normal muscle strength and tone. No focal deficits. Results & Data Results & Data Vital Signs (Past 12 Hours) Vital Signs Temp Pulse Pulse Pulse Resp BP Pulse Ox 06/29/25 07:40 06/29/25 07:40 61 06/29/25 07:25 74 20 92 06/29/25 07:02 36.8 C 65 18 179/67 H 96 06/29/25 03:59 36.5 C 55 L 20 185/78 H 96 06/28/25 23:00 36.8 C 60 18 190/75 H 99 06/28/25 21:47 73 O2 Del Method O2 Flow Rate 06/29/25 07:40 Nasal Cannula 2 06/29/25 07:40 06/29/25 07:25 Nasal Cannula 2 06/29/25 07:02 BiPAP 06/29/25 03:59 CPAP 06/28/25 23:00 CPAP 06/28/25 21:47 Laboratory Results 06/28/25 05:38 06/29/25 05:28 Abnormal Lab Results 06/28/25 06/28/25 06/28/25 11:13 16:05 20:16 Sodium Potassium Chloride Carbon Dioxide Anion Gap BUN Creatinine Est Cr Clr Drug Dosing eGFR BUN/Creatinine Ratio Glucose POC Glucose 226 H 203 H 181 H Calcium Phosphorus Magnesium 06/29/25 06/29/25 06/29/25 00:31 03:48 04:15 Sodium Potassium Chloride Carbon Dioxide Anion Gap BUN Creatinine Est Cr Clr Drug Dosing eGFR BUN/Creatinine Ratio Glucose POC Glucose 93 63 L* 179 H Calcium Phosphorus Magnesium 06/29/25 06/29/25 05:28 07:01 Sodium 134 L Potassium 3.7 Chloride 100 Carbon Dioxide 26 Anion Gap 8 BUN 16 Creatinine 0.76 Est Cr Clr Drug Dosing 112.2 eGFR 99.75 BUN/Creatinine Ratio 21.1 H Glucose 121 H POC Glucose 102 H Calcium 8.4 L Phosphorus 3.8 Magnesium 2.1 Diagnostic Findings No recent imaging. PG Care Time/CCT Total # of Minutes Spent Total Time Spent with Patient: Total time spent is greater than 50% in coordination of care (as documented) at patient's floor/unit and/or counseling patient: Coding Level of Care Code 91721 SUB INP/OBS CARE 2/35MIN Diagnoses Aspiration into airway T17.908A Abnormality of esophagus K22.9 Hypoxemia R09.02
--- NOTE | 2025-06-29 11:58 | Infectious Disease Progress Nt ---
Date of Service June 29, 2025 Assessment & Plan (1) MSSA bacteremia: (2) Bilateral pneumonia: Plan 64 yo M with type 1 diabetes, gastroparesis, neurogenic bladder, neuropathy, CKD, CAD, COPD, TIA 04/15 on Plavix, recurrent pneumonias, chronic aspiration who presented on 06/23 with rash and anaphylactic reaction in the setting of feeling ill for several days, found to have MSSA bacteremia and pneumonia. Reported he has been ill and febrile for the last few days, with worsening of his chronic cough, now productive. He took Tussin with codeine (which he has taken for many years), and following this, developed shortness of breath and began to feel itchy. Was noted to have a rash in his armpits, on his arms, bilateral groin folds, tracked down his legs. Then began having facial itching, redness, swelling to his eyelids, lips, ears. EMS was called and he was hypoxic and hypotensive, and was given Benadryl and IM epinephrine en route. On arrival, he was noted to have severe swelling of his face, and wheals with erythematous rash to arms. Initially afebrile, although later became febrile to 38. Labs with WBC 3.47, Cr 1.73, lactate 5, procal 6.22. RVP negative. CXR with bilateral lower lung alveolar opacities, suggesting infective/inflammatory proce ss. Pt was given Unasyn, then started on ceftriaxone and azithromycin. Admitted to ICU, and improving following epinephrine, H2, antihistamines, steroids. Admission blood cultures now growing MSSA in 1/4 bottles, Bacillus species in 1/4 bottles, Staph epi in 1/4 bottles. Sputum culture growing MSSA. Problems: #MSSA bacteremia #Pneumonia #Anaphylactic reaction Micro: 06/26 Sputum cx: squamous cells on g/s- contamination. 06/24 BCx x2: NGTD 06/23 Sputum cx: MSSA 06/23 BCx x2: MSSA in 1/4 bottles, Bacillus species in 1/4 bottles, Staph epi in 1/4 bottles Abx: Cefazolin 06/24 - present Ceftriaxone 06/23 - 06/24 Azithro 06/23 - 06/25 Unasyn 06/23 Discussion: Pt with MSSA bacteremia, likely secondary to pneumonia given it is also growing in his sputum culture. TTE on 06/24 with no evidence of endocarditis although image quality suboptimal. FANNY attempted 06/26, but pt became more hypoxic requiring 5 L NC. Now improved later in the morning, weaned off O2, CXR shows improvement. 06/29- BCX from 06/24 NGTD. O2 requirement improved. On 2 LNC o2 sats dropped to 89% when attempted to wean 02 -Still has intermittent coughing episodes - He was cleared for FANNY by pulmonary Recommendations: - Follow-up repeat blood cultures from 06/24 - Continue cefazolin 2 g IV q8h to cover MSSA - Will follow up planned FANNY - Monitor for seeding of MSSA bacteremia elsewhere--if pt has joint or spine pain, would pursue imaging of these areas - If 06/24 blood cultures remain negative and pt's respiratory status improves, could complete a 2 week course of cefazolin 2 g IV q8h (tentatively 06/24-07/07) via PICC Mitra Granados MD, MPH Infectious Disease [facility], ID Division Call [phone] with questions Admission and Anticipated Discharge Date Admission Date: June 23, 2025 Subjective This patient recommendation is based on a telemedicine consult request which was completed asynchronously through chart review and information provided by the primary physician. The patient was not seen or examined today. The evaluation is consultative in nature and all patient care and treatment decisions can either be accepted or rejected by the patient's primary hospital-based treating physician using their own independent medical judgment for their patient. Time Spent Reviewing Chart: 21 - 30 minutes Chart and weekend events reviewed Econsult follow up completed as video cart is not working today - Afebrile - On 2l NC - o2 sats dropped to 89% when attempted to wean 02 -Still has intermittent coughing episodes - He was cleared for FANNY by pulmonary. Results & Data Vital Signs (Past 12 Hours) Vital Signs Temp Pulse Pulse Pulse Resp BP Pulse Ox 06/29/25 07:40 06/29/25 07:40 61 06/29/25 07:25 74 20 92 06/29/25 07:02 36.8 C 65 18 179/67 H 96 06/29/25 03:59 36.5 C 55 L 20 185/78 H 96 O2 Del Method O2 Flow Rate 06/29/25 07:40 Nasal Cannula 2 06/29/25 07:40 06/29/25 07:25 Nasal Cannula 2 06/29/25 07:02 BiPAP 06/29/25 03:59 CPAP Laboratory Results BMP 06/29/25 05:28 Sodium 134 L Potassium 3.7 Chloride 100 Carbon Dioxide 26 BUN 16 Creatinine 0.76 Glucose 121 H Calcium 8.4 L Microbiology 06/23/25 03:48 Blood Aerobic Blood Culture - Preliminary Staphylococcus epidermidis 06/23/25 03:48 Blood Anaerobic Blood Culture - Final No growth in Anaerobic bottle after 5 days. 06/26/25 13:25 Sputum, Expectorated Gram Stain - Final 06/26/25 13:25 Sputum, Expectorated Sputum Culture - Final 06/24/25 16:46 Blood Aerobic Blood Culture - Preliminary No growth in Aerobic bottle after 48 hours. 06/24/25 16:46 Blood Anaerobic Blood Culture - Preliminary No growth in Anaerobic bottle after 48 hours. 06/24/25 16:46 Blood Aerobic Blood Culture - Preliminary No growth in Aerobic bottle after 48 hours. 06/24/25 16:46 Blood Anaerobic Blood Culture - Preliminary No growth in Anaerobic bottle after 48 hours. 06/26/25 09:45 Sputum, Expectorated Gram Stain - Final 06/26/25 09:45 Sputum, Expectorated Sputum Culture - Final 06/23/25 03:53 Blood Aerobic Blood Culture - Final Bacill.sp.Not anthracis/cereus 06/23/25 03:53 Blood Anaerobic Blood Culture - Final Staphylococcus aureus 06/23/25 13:30 Sputum, Expectorated Gram Stain - Final 06/23/25 13:30 Sputum, Expectorated Sputum Culture - Final Staphylococcus aureus Diagnostic Findings Chest CTA 06/26/25 10:51 CT ANGIOGRAM OF THE CHEST CLINICAL HISTORY: Hypoxia COMPARISON STUDY: Chest CT dated 11/08/2024. Chest x-ray dated 06/26/2025. TECHNIQUE: Following the IV administration of 120 cc of Optiray 320, CT angiogram of the chest was performed from the upper abdomen to the thoracic inlet utilizing the pulmonary embolus protocol. Images are reviewed in the axial, sagittal, and coronal planes. 3-D MIPS images are created and assessed. IV contrast was administered without complication. A dose lowering technique was utilized adhering to the principles of ALARA. CT DOSE: 876.87 mGy.cm FINDINGS: Thyroid: Atrophic and heterogeneous. Thoracic aorta: There is atherosclerotic calcification of the thoracic aorta, which is normal in caliber and demonstrates standard 3-vessel arch anatomy. No dissection is seen. Pulmonary vasculature: The pulmonary trunk is normal in caliber. There are no filling defects identified in main, lobar, or segmental pulmonary branches to suggest pulmonary embolus. Heart: The heart is mild enlargement of the and without pericardial effusion. The coronary arteries and evidence of calcified. Lungs and pleural spaces: Moderate emphysematous changes observed. Multifocal patchy/nodular airspace consolidation is seen bilaterally with a lower lung predominance. There are scattered foci of cavitation within the consolidative change. There are trace pleural effusions. The trachea is clear. Secretions/debris is seen within the distal left mainstem bronchus in the lower lobe airways bilaterally. Mediastinum: Subcentimeter mediastinal lymph nodes are not pathologically enlarged by size criteria. Bren: Mildly enlarged hilar nodes measure up to 1.5 cm in short axis. Axillae: There is no axillary lymphadenopathy. Upper abdomen: There is a small hiatal hernia. Partially visualized upper abdominal viscera is otherwise grossly unremarkable. Skeletal structures: No lytic or blastic bony lesions are seen. IMPRESSION: 1. There is no evidence of pulmonary embolus in the main, lobar, or segmental pulmonary arteries. 2. Cardiomegaly and emphysema. 3. Multifocal patchy/nodular consolidation is seen throughout both lungs with a lower lung predominance. Several foci of consolidation show foci of cavitation. Additionally, there is fluid/debris filling the lower lobe airways and the distal left mainstem bronchus. The appearance favors pneumonia/aspiration pneumonitis and clinical correlation will be required. Radiographic follow-up to resolution is recommend. 4. Trace pleural effusions. 5. Advanced coronary artery atherosclerosis. 6. Mildly enlarged right hilar nodes are likely reactive. 7. Additional findings as above. ACT 112: Negative or not required by law. Electronically signed by: Dar Chapin M.D. 06/26/2025 1:03 PM Medications Administered Home Medications Medication Instructions Recorded Confirmed Last Taken lactobacillus combination no.4 3 3,000 mmu cells PO QAM 08/06/18 06/23/25 05/11/25 billion cell capsule (Probiotic) aspirin 81 mg tablet,delayed 81 mg PO QAM 06/09/19 06/23/25 05/11/25 release glucosamine sulfate 500 mg tablet 500 mg PO QDL 07/05/19 06/23/25 05/10/25 (Glucosamine) ferrous sulfate 325 mg (65 mg 325 mg PO BID 03/25/21 05/20/25 05/11/25 08:00 iron) tablet fexofenadine 180 mg tablet 180 mg PO QAM 08/28/22 06/23/25 05/11/25 ([place] Allergy) levothyroxine 175 mcg tablet 175 mcg PO QAM #90 tabs 11/06/23 06/23/25 05/11/25 haoqond-emhjeygciandv-pyoaodqy 250 1 tab PO Q6H PRN Migraine Headache 01/08/24 05/20/25 Unknown mg-250 mg-65 mg tablet (Excedrin Migraine) BiPap Machine #1 ea 05/29/24 05/20/25 Unknown atorvastatin 80 mg tablet 80 mg PO HS #90 tabs 07/08/24 06/23/25 05/10/25 pantoprazole 40 mg tablet,delayed 40 mg PO BID #180 tabs 07/21/24 06/23/25 05/11/25 08:00 release (Protonix) fluticasone fur. 100 mcg-umeclid 1 inh inhalation QAM 90 days #90 09/08/24 06/23/25 05/11/25 62.5 mcg-vilant 25 mcg puffs inhalat.powder (Trelegy Ellipta) metoclopramide HCl 10 mg tablet 10 mg PO QID #120 tabs 09/22/24 06/23/25 05/11/25 08:00 (Reglan) bumetanide 1 mg tablet 1 mg PO BID #180 tabs 09/29/24 06/23/25 05/11/25 08:00 famotidine 20 mg tablet 20 mg PO BID 11/06/24 06/23/25 05/11/25 08:00 insulin aspart U-100 100 unit/mL 0 sliding scale dose subcut UD 11/06/24 05/20/25 04/20/25 07:10 (3 mL) subcutaneous pen (Novolog FlexPen U-100 Insulin aspart) promethazine 25 mg tablet 25 mg PO Q6H PRN n/v 11/06/24 05/20/25 04/20/25 montelukast 10 mg tablet 10 mg PO HS 11/24/24 06/23/25 05/10/25 albuterol sulfate 90 mcg/actuation 2 puff inhalation Q4H PRN 01/12/25 06/23/25 Unknown aerosol inhaler Shortness Of Breath #8.5 grams acetaminophen 325 mg tablet 325 mg PO Q6H PRN PAIN/FEVER 01/13/25 06/23/25 02/23/25 16:00 (Tylenol) sennosides 8.6 mg tablet (senna) 8.6 mg PO BID 01/13/25 06/23/25 05/11/25 08:00 sodium chloride 1,000 mg soluble 1,000 - 2,000 mg PO QID 01/13/25 06/23/25 05/11/25 08:00 tablet ondansetron HCl 8 mg tablet 8 mg PO TID PRN nausea and 03/04/25 06/23/25 Unknown vomiting #30 tabs hydrocodone-homatropine 5 mg-1.5 1 tab PO BID PRN cough #60 tabs 03/23/25 06/23/25 Unknown mg tablet magnesium oxide 400 mg PO DAILY 03/31/25 06/23/25 05/11/25 amlodipine 2.5 mg tablet 2.5 mg PO QAM #90 tabs 04/06/25 06/23/25 05/11/25 famotidine 40 mg tablet 40 mg PO HS 04/13/25 06/23/25 05/10/25 levalbuterol HCl 0.63 mg/3 mL 0.63 mg (3 mL) inhalation Q6H PRN 04/13/25 06/23/25 04/20/25 solution for nebulization shortness of breath or wheezing #360 mL atenolol 50 mg tablet (Tenormin) 50 mg PO BID #180 tabs 05/04/25 06/23/25 05/11/25 08:00 isosorbide mononitrate 30 mg 30 mg PO QAM #90 tabs 05/04/25 06/23/25 05/11/25 tablet,extended release 24 hr losartan 100 mg tablet 100 mg PO QAM #90 tabs 05/04/25 06/23/25 05/11/25 nortriptyline 25 mg capsule 50 mg (2 x 25 mg) PO HS #180 caps 05/04/25 06/23/25 05/10/25 tamsulosin 0.4 mg capsule (Flomax) 0.4 mg PO QPM #90 caps 05/07/25 06/23/25 05/10/25 sucralfate 1 gram tablet 1 g PO ACHS 05/11/25 05/20/25 05/11/25 07:00 insulin degludec 100 unit/mL (3 30 unit (0.3 mL) subcut BID #0 mL 05/13/25 06/23/25 05/11/25 08:00 mL) subcutaneous pen (Tresiba FlexTouch U-100 insulin) clopidogrel 75 mg tablet 75 mg PO DAILY #30 tabs 06/01/25 06/23/25 Unknown folic acid 1 mg tablet 1 mg PO BID #180 tabs 06/02/25 Unknown oxycodone-acetaminophen 5 mg-325 1 - 2 tab PO DAILY PRN Pain 30 06/10/25 06/23/25 Unknown mg tablet (Percocet) days #60 tabs dutasteride 0.5 mg capsule 0.5 mg PO DAILY #90 caps 06/19/25 Unknown Active Medications Generic Name Dose Route Start Last Admin Trade Name Freq PRN Reason Stop Dose Admin Acetaminophen 650 mg 06/23/25 07:12 06/29/25 08:04 Acetaminophen 325 Mg Tab PO 07/23/25 07:11 650 mg Q4H PRN Administration Pain or Fever Amlodipine Besylate 5 mg 06/25/25 09:00 06/29/25 08:04 Amlodipine Besylate 5 Mg Tab PO 07/25/25 08:59 5 mg QAM SILVINA Administration Aspirin 81 mg 06/23/25 09:00 06/29/25 08:04 Aspirin 81 Mg Ectab PO 07/23/25 08:59 81 mg QAM SILVINA Administration Atenolol 50 mg 06/24/25 09:00 06/29/25 08:04 Atenolol 50 Mg Tablet PO 07/24/25 08:59 50 mg BID SILVINA Administration Atorvastatin Calcium 80 mg 06/23/25 21:00 06/28/25 21:24 Atorvastatin 40 Mg Tab PO 07/23/25 20:59 80 mg HS SILVINA Administration Calcium Carbonate 1,500 mg 06/27/25 13:55 06/28/25 19:21 Calcium Carbonate 500 Mg Chewable Tab PO 07/27/25 13:54 1,500 mg BID PRN Administration Indigestion Dextrose 25 - 50 ml 06/23/25 11:54 06/29/25 03:57 Dextrose 50% 50 Ml Syringe IV 07/23/25 11:53 25 ml UD PRN Administration Hypoglycemia Protocol Protocol Diphenhydramine HCl 50 mg 06/24/25 09:00 06/28/25 00:04 Diphenhydramine Capsule 25 Mg Cap PO 07/24/25 08:59 50 mg Q8H SILVINA Administration Docusate Sodium 100 mg 06/23/25 07:12 06/25/25 09:51 Docusate Sodium 100 Mg Cap PO 07/23/25 07:11 100 mg BID PRN Administration Constipation Famotidine 20 mg 06/24/25 09:00 06/29/25 08:04 Famotidine 20 Mg Tab PO 07/24/25 08:59 20 mg BID SILVINA Administration Fluticasone Furoate 1 puffs 06/23/25 09:00 06/29/25 08:04 Fluticasone Furoate 100mcg 14 Puffs/Inhaler INH 07/23/25 08:59 1 puffs DAILY SILVINA Administration Heparin Sodium (Porcine) 5,000 units 06/26/25 14:00 06/29/25 06:08 Heparin Sod 5,000 Unit/0.5 Ml Vial SQ 07/26/25 13:59 5,000 units Q8 SILVINA Administration Cefazolin Sodium 2,000 mg in 15 mls @ 3.75 mls/min 06/24/25 16:00 06/29/25 08:04 Ancef 2000mg IV 07/08/25 15:59 3.75 mls/min Q8H SILVINA Administration Isosorbide Mononitrate 30 mg 06/24/25 09:00 06/29/25 08:04 Isosorbide [place] Extended Rel 30 Mg Tabcr PO 07/24/25 08:59 30 mg QAM SILVINA Administration Labetalol HCl 5 mg 06/24/25 04:31 06/24/25 22:55 Labetalol Hcl Iv 5 Mg/Ml 20ml IV 07/24/25 04:30 5 mg Q2H PRN Administration SBP >180 and/or DBP >95 Levalbuterol HCl 0.63 mg 06/23/25 07:12 06/29/25 07:25 Levalbuterol Hcl 0.63 Mg/3 Ml Neb INH 07/23/25 07:11 0.63 mg Q6H PRN Administration shortness of breath or wheezing Protocol Levothyroxine Sodium 175 mcg 06/23/25 09:00 06/29/25 06:09 Levothyroxine Sodium 175 Mcg Tablet PO 07/23/25 08:59 175 mcg DAILYBB SILVINA Administration Losartan Potassium 50 mg 06/26/25 15:45 06/29/25 08:04 Losartan Potassium 50 Mg Tab PO 07/26/25 15:44 50 mg QAM SILVINA Administration Metoclopramide HCl 10 mg 06/23/25 09:00 06/27/25 21:32 Metoclopramide Hcl 10 Mg Tablet PO 07/23/25 08:59 10 mg QID SILVINA Administration Miscellaneous 15 - 30 gm 06/23/25 11:54 06/25/25 01:02 Carbohydrates For Hypoglycemia PO 07/23/25 11:53 30 gm UD PRN Administration Hypoglycemia Protocol Montelukast Sodium 10 mg 06/23/25 21:00 06/28/25 21:23 Montelukast Sodium 10 Mg Tablet PO 07/23/25 20:59 10 mg HS SILVINA Administration Nortriptyline HCl 50 mg 06/23/25 21:00 06/28/25 21:23 Nortriptyline Hcl 25 Mg Cap PO 07/23/25 20:59 50 mg HS SILVINA Administration Ondansetron HCl 4 mg 06/23/25 07:12 06/25/25 09:07 Ondansetron Inj 2 Mg/Ml 2 Ml Vial IV 07/23/25 07:11 4 mg Q6H PRN Administration Nausea And Vomiting Pantoprazole Sodium 40 mg 06/23/25 09:00 06/29/25 08:04 Pantoprazole 40 Mg Tab PO 07/23/25 08:59 40 mg BID SILVINA Administration Prednisone 20 mg 06/28/25 09:00 06/29/25 08:04 Prednisone 20 Mg Tab PO 07/28/25 08:59 20 mg DAILY SILVINA Administration Sennosides 8.6 mg 06/23/25 09:00 06/29/25 08:04 Senna 8.6 Mg Tab PO 07/23/25 08:59 8.6 mg BID SILVINA Administration Sodium Chloride 2 gm 06/23/25 09:00 06/29/25 08:05 Sodium Chloride 1 Gm Tablet PO 07/23/25 08:59 2 gm DAILY@0900,2200 SILVINA Administration Sodium Chloride 1 gm 06/23/25 12:00 06/28/25 17:17 Sodium Chloride 1 Gm Tablet PO 07/23/25 11:59 1 gm DAILY@1200,1700 SILVINA Administration Sodium Chloride 4 ml 06/25/25 14:20 06/29/25 07:25 Sodium Chlor 7% 4 Ml Neb NEB 07/25/25 14:19 4 ml BIDR SILVINA Administration Umeclidinium/Vilanterol 1 puffs 06/23/25 09:00 06/29/25 08:04 Umeclidinium/Vilanterol 62.5/25mcg 7 Puffs/Inhaler INH 07/23/25 08:59 1 puffs DAILY SILVINA Administration
[2025-06-29] MEDS ORDERED: INSULIN ASPART PER UNIT CHARGE SC SCH (12:00)
[2025-06-29] MEDS: INSULIN ASPART PER UNIT CHARGE SC SCH (12:06)
[2025-06-29] MEDS: LANTUS PER UNIT CHARGE SC SCH ×2 (12:06→21:09)
--- NOTE | 2025-06-29 15:20 | Pharmacy Report ---
Pharmacy Glycemic Short Note 2 - Date of Service June 29, 2025 - Glycemic Short BSG Results (Last 24 hours): 06/28/25 06/28/25 06/29/25 16:05 20:16 00:31 Glucose POC Glucose 203 H 181 H 93 06/29/25 06/29/25 06/29/25 03:48 04:15 05:28 Glucose 121 H POC Glucose 63 L* 179 H 06/29/25 06/29/25 07:01 11:30 Glucose POC Glucose 102 H 226 H OUTPATIENT ANTIDIABETIC REGIMEN: * Tresiba 30 units SC BID * Novolog SC CR 20 + some correctional * A1c: 8.1% (05/30/25) ASSESSMENT: 06/29: * Cody received a total of 97 units of insulin yesterday (40 units were basal and 57 units were bolus). He did have a hypoglycemic event overnight (BSG was 63mg/dL) and D50% was given. * Fasting BSG was 102mg/dL this morning. Basal insulin was reduced by 20% and the parameters of the bolus insulin were loosened to prevent further episodes of hypoglycemia. * AM steroid dose was decreased yesterday so that may account partially for decreased insulin needs. 06/26: * Cody received a total of 73 units of insulin yesterday (20 units were basal and 53 units were bolus)--He reportedly refused the HS basal insulin last evening. * Fasting BSG was 195mg/dL this morning. Decreased Lantus to 10 units this morning as he was NPO. * Since his diet was resumed, restarted lantus 20 units BID this evening. * Will continue bolus insulin regimen as previously ordered. 06/25: * Cody received 167 units of insulin yesterday, 75 units of which were basal. BSGs were: [phone] mg/dL. * Patient did have a hypoglycemic event last evening around midnight in which he was symptomatic. Treated with 30 g of carbs and BSG improved to 98 mg/dL. Believe this could be due to steroids decreasing as well as too much basal on board. Stacking of Novolog doses could have played a role as well. * Will loosen correction factor which was tightened last evening. Continue same carb ratio. Remains on Ancef, Azithromycin and Prednisone 40 mg PO daily. Tolerating diet. * Fasting BSG this AM was 152 mg/dL. Will reduce basal dose significantly today. 06/24: * T1DM presenting for possible anaphylaxis, hyperglycemic likely secondary to stress response and steroids. Patient now with MSSA bacteremia. * Patient was initially on solumedrol ND, transitioned to oral prednisone today and is eating * Outpatient regimen is basal heavy. Will utilize outpatient regimen in addition to past admission data to help guide dosing. Will tighten novolog scale further today to account for steroid induced post prandial hyperglycemia. PLAN FOR INPATIENT GLYCEMIC CONTROL: * Basal insulin * Reduce 20%--Lantus 16 units SQ BID * Bolus insulin * NovoLog per scale ACHS or Q6hrs while NPO * Goal Range: Low 110 mg/dL - High 140 mg/dL * Correction Factor: 20 mg/dL/unit * Nutritional / Prandial insulin per carb ratio of 1 unit per 4 grams CHO consumed
--- NOTE | 2025-06-29 22:08 | Hospitalist Progress Note ---
Date of Service June 29, 2025 Assessment & Plan (1) Rash: (2) Multifocal pneumonia: (3) Hyponatremia: (4) CAD (coronary atherosclerotic disease): (5) Diabetes mellitus type 1, uncontrolled: (6) COPD (chronic obstructive pulmonary disease): (7) Acquired blindness: Plan 64yo male with multiple medical comorbidities presenting with severe allergic reaction - rash with anaphylaxis. Etiology unclear. Possible rash secondary to Plavix, possible infectious. #Rash/Anaphylaxis - diffuse, symmetrical, erythematous, pruritic, urticarial rash - sparing of palms/soles/mucus membranes. Inciting event unknown. Patient remains hemodynamically stable following administration of epinephrine IM and IV. No airway involvement. No desquamation or blistering -Admit to MICU -Improved rash, no longer requires ICY. will continue corticosteroids as noted below. -Treatment with Solumedrol 40mg IV BID/ transition to prednisone Now on 20 mg of prednisone. -Pepcid 20mg IV BID and 40mg po qHS -Benadryl 50mg IV q 6 hours -Continue Fexofenadine -Continue Montelukast -resume bp meds -resolved #Pneumonia Acute hypoxic respiratory failure Now improved, back on nasal cannula. will continue current antibiotics and pulmonary toilet - CXR suggestive of bilateral lower lobe PNA. . Respiratory biofire panel is negative, MRSA nares negative . -Follow blood cultures: showing staph aureus. -now on cefazolin and Azithromycin - will consult ID due to bacteremia. CTA negative for p/e. Oxygen level has been slowly improving. No longer requires FANNY as repear blood culture has been negative. #NITIN/Hyperkalemia- patient with NITIN on CKD. Cr today=1.73, increased from most recently 1.34. Hyperkalemia with K=6.9 s/p treatment with IVF, Insulin/D50, Calcium gluconate and Albuterol -Continue hydration -Avoid nephrotoxic medications -Renal dosing where needed #Hyponatremia - chronic. Patient is on salt tablets daily. Na jrlog=[id number], slightly lower than baseline -Continue hydration -Continue salt tablets #DM -Glycemic management per MICU #COPD -Continue Trelegy or formulary equivalent -Xopenex PRN -Supplemental O2 as needed LUZMA-BiPAP at night #BPH -Continue Flomax #CAD/possible TIA -Continue ASA -Holding Plavix, possibly contributing to rash -Continue Atorvastatin Admission and Anticipated Discharge Date Admission Date: June 23, 2025 Subjective Patient reports no new issues. He is breathing well. Still coughing up some sputum but much less than earlier. Physical Exam Physical Exam: General: NAD, answering questions appropriately and following commands Skin: rash is gone HEENT: NC/AT, absence of eyes bilaterally, ears red, swollen bilaterally Heart: +S1/S2, regular, no m/r/g Lungs: left sided rhonchi Abd: +BS, soft, NT/ND, no masses/organomegaly/ascites Ext: warm, 2+ pulses in UE/LE bilaterally, no clubbing/cyanosis or edema Results & Data Results & Data Vital Signs (Past 12 Hours) Vital Signs Temp Pulse Pulse Pulse Resp BP Pulse Ox 06/29/25 19:19 36.6 C 67 18 178/77 H 94 06/29/25 15:44 36.5 C 72 18 174/78 H 93 06/29/25 14:30 71 O2 Del Method O2 Flow Rate 06/29/25 19:19 Nasal Cannula 06/29/25 15:44 Nasal Cannula 2.0 06/29/25 14:30 PG Care Time/CCT Total # of Minutes Spent Total Time Spent with Patient: Total time spent is greater than 50% in coordination of care (as documented) at patient's floor/unit and/or counseling patient: Coding Level of Care Code 47645 SUB INP/OBS CARE 3/50MIN Diagnoses Rash R21 Multifocal pneumonia J18.9 Hyponatremia E87.1 CAD (coronary atherosclerotic disease) I25.10 Uncontrolled type 1 diabetes mellitus with hyperglycemia E10.65 Chronic bronchitis, unspecified chronic bronchitis type J44.9 COPD type: unspecified COPD Acquired blindness H54.7 (6) COPD (chronic obstructive pulmonary disease) COPD type: unspecified COPD Qualified Code(s): J44.9 - Chronic obstructive pulmonary disease, unspecified
[2025-06-30 07:18] LABS: Anion Gap 6.0 (3-11); Blood Urea Nitrogen 16.0 mg/dl (6-23); Calcium 8.6 mg/dl (8.6-10.3); Carbon Dioxide 28.0 mmol/L (21-32); Chloride 99.0 mmol/L (98-107); Creatinine Clr Calc Pharmacy 103.9 ml/min; Glucose 90.0 mg/dl (70-99(Fasting)); Magnesium 2.3 mg/dl (1.7-2.4); Potassium 4.1 mmol/L (3.5-5.1); Sodium 133.0 mmol/L (136-145)
--- NOTE | 2025-06-30 13:30 | Pharmacy Report ---
Pharmacy Glycemic Short Note 2 - Date of Service June 30, 2025 - Glycemic Short BSG Results (Last 24 hours): 06/29/25 06/29/25 06/30/25 16:23 20:07 06:17 Glucose 90 POC Glucose 220 H 179 H 06/30/25 06/30/25 07:22 11:28 Glucose POC Glucose 98 123 H OUTPATIENT ANTIDIABETIC REGIMEN: * Tresiba 30 units SC BID * Novolog SC CR 20 + some correctional * A1c: 8.1% (05/30/25) ASSESSMENT: 06/30: * Cody received a total of 57 units of insulin yesterday (32 units were basal and 25 units were bolus) * Fasting BSG was 98mg/dL this morning. Will trial just giving AM dose of Lantus for now to see if that prevents the overnight/AM hypoglycemia. * Will continue current bolus insulin regimen without change. 06/29: * Cody received a total of 97 units of insulin yesterday (40 units were basal and 57 units were bolus). He did have a hypoglycemic event overnight (BSG was 63mg/dL) and D50% was given. * Fasting BSG was 102mg/dL this morning. Basal insulin was reduced by 20% and the parameters of the bolus insulin were loosened to prevent further episodes of hypoglycemia. * AM steroid dose was decreased yesterday so that may account partially for decreased insulin needs. 06/26: * Cody received a total of 73 units of insulin yesterday (20 units were basal and 53 units were bolus)--He reportedly refused the HS basal insulin last evening. * Fasting BSG was 195mg/dL this morning. Decreased Lantus to 10 units this morning as he was NPO. * Since his diet was resumed, restarted lantus 20 units BID this evening. * Will continue bolus insulin regimen as previously ordered. 06/25: * Cody received 167 units of insulin yesterday, 75 units of which were basal. BSGs were: [phone] mg/dL. * Patient did have a hypoglycemic event last evening around midnight in which he was symptomatic. Treated with 30 g of carbs and BSG improved to 98 mg/dL. Believe this could be due to steroids decreasing as well as too much basal on board. Stacking of Novolog doses could have played a role as well. * Will loosen correction factor which was tightened last evening. Continue same carb ratio. Remains on Ancef, Azithromycin and Prednisone 40 mg PO daily. Tolerating diet. * Fasting BSG this AM was 152 mg/dL. Will reduce basal dose significantly today. 06/24: * T1DM presenting for possible anaphylaxis, hyperglycemic likely secondary to stress response and steroids. Patient now with MSSA bacteremia. * Patient was initially on solumedrol ND, transitioned to oral prednisone today and is eating * Outpatient regimen is basal heavy. Will utilize outpatient regimen in addition to past admission data to help guide dosing. Will tighten novolog scale further today to account for steroid induced post prandial hyperglycemia. PLAN FOR INPATIENT GLYCEMIC CONTROL: * Basal insulin * Lantus 16 units SQ QAM * Bolus insulin * NovoLog per scale ACHS or Q6hrs while NPO * Goal Range: Low 110 mg/dL - High 140 mg/dL * Correction Factor: 20 mg/dL/unit * Nutritional / Prandial insulin per carb ratio of 1 unit per 4 grams CHO consumed
[2025-06-30] MEDS: LANTUS PER UNIT CHARGE SC SCH (13:47)
--- NOTE | 2025-06-30 15:54 | Hospitalist Progress Note ---
Date of Service June 30, 2025 Assessment & Plan (1) Rash: (2) Multifocal pneumonia: (3) Hyponatremia: (4) CAD (coronary atherosclerotic disease): (5) Diabetes mellitus type 1, uncontrolled: (6) COPD (chronic obstructive pulmonary disease): (7) Acquired blindness: Plan 64yo male with multiple medical comorbidities presenting with severe allergic reaction - rash with anaphylaxis. Etiology unclear. Possible rash secondary to Plavix, possible infectious. #Rash/Anaphylaxis - diffuse, symmetrical, erythematous, pruritic, urticarial rash - sparing of palms/soles/mucus membranes. Inciting event unknown. Patient remains hemodynamically stable following administration of epinephrine IM and IV. No airway involvement. No desquamation or blistering -Initially admitted to MICU for this -unsure which medication precipitated it as patient has tried these meds in the past -Improved rash, no longer requires ICU -Treatment with Solumedrol 40mg IV BID/ transitioned to prednisone Now on 20 mg of prednisone, can taper further at discharge -Pepcid 20mg IV BID and 40mg po qHS -Benadryl 50mg IV q 6 hours -Continue Fexofenadine -Continue Montelukast -resume bp meds -resolved #Pneumonia Acute hypoxic respiratory failure Now improved, back on nasal cannula. will continue current antibiotics and pulmonary toilet - CXR suggestive of bilateral lower lobe PNA. . Respiratory biofire panel is negative, MRSA nares negative . -Follow blood cultures: showing staph aureus. -now on cefazolin, will complete 14 days, last dose will be 07/07 per ID -completed Azithromycin - will consult ID due to bacteremia. CTA negative for p/e. Oxygen level has been slowly improving. No longer requires FANNY as repear blood culture has been negative. Due to difficulty swallowing/ recurrent aspirations due to dysphagia, patient will need for home suction. #NITIN/Hyperkalemia- patient with NITIN on CKD. resolved. -Avoid nephrotoxic medications -Renal dosing where needed #Hyponatremia - chronic. Patient is on salt tablets daily. Na was 124, now 133. -Continue hydration -Continue salt tablets #DM -Glycemic management per MICU #COPD -Continue Trelegy or formulary equivalent -Xopenex PRN -Supplemental O2 as needed LUZMA-BiPAP at night #BPH -Continue Flomax #CAD/possible TIA -Continue ASA -Holding Plavix, possibly contributing to rash -Continue Atorvastatin Admission and Anticipated Discharge Date Admission Date: June 23, 2025 Subjective Patient reportsnbreathing better, less coughing. Nurse reports his O2 requirements have dropped to 1 liter. Physical Exam Physical Exam: General: NAD, answering questions appropriately and following commands Skin: rash is gone HEENT: NC/AT, absence of eyes bilaterally, ears red, swollen bilaterally Heart: +S1/S2, regular, no m/r/g Lungs: decreased left sided rhonchi Abd: +BS, soft, NT/ND, no masses/organomegaly/ascites Ext: warm, 2+ pulses in UE/LE bilaterally, no clubbing/cyanosis or edema Results & Data Results & Data Vital Signs (Past 12 Hours) Vital Signs Temp Pulse Pulse Resp BP Pulse Ox Pulse Ox 06/30/25 15:49 74 06/30/25 13:38 97 06/30/25 11:58 36.8 C 71 16 93 06/30/25 08:12 73 16 133/70 97 06/30/25 08:00 06/30/25 08:00 61 06/30/25 07:19 76 18 95 O2 Del Method O2 Del Method O2 Flow Rate O2 Flow Rate 06/30/25 15:49 06/30/25 13:38 Nasal Cannula 1 06/30/25 11:58 Nasal Cannula 1 06/30/25 08:12 Nasal Cannula 2 06/30/25 08:00 Nasal Cannula 2 06/30/25 08:00 06/30/25 07:19 Nasal Cannula 2 PG Care Time/CCT Total # of Minutes Spent Total Time Spent with Patient: Total time spent is greater than 50% in coordination of care (as documented) at patient's floor/unit and/or counseling patient: Coding Level of Care Code 60326 SUB INP/OBS CARE 3/50MIN Diagnoses Rash R21 Multifocal pneumonia J18.9 Hyponatremia E87.1 CAD (coronary atherosclerotic disease) I25.10 Uncontrolled type 1 diabetes mellitus with hyperglycemia E10.65 Chronic bronchitis, unspecified chronic bronchitis type J44.9 COPD type: unspecified COPD Acquired blindness H54.7 (6) COPD (chronic obstructive pulmonary disease) COPD type: unspecified COPD Qualified Code(s): J44.9 - Chronic obstructive pulmonary disease, unspecified
[2025-07-01] MEDS: PROCHLORPERAZINE 5 MG in SYRINGE 4 ML IV ONE (01:50)
[2025-07-01 06:57] LABS: Hematocrit (blood only) 32.3 % (42.0-52.0); Hemoglobin 11.1 g/dl (14.0-18.0); Mean Corpuscular Hemoglobin 32.0 pg (25.0-34.0); Mean Corpuscular Volume 93.1 fL (80.0-100.0); Platelet Count 371 K/uL (130-400); RDW Standard Deviation 44.0 fL (36.4-46.3); Red Blood Count 3.47 M/uL (4.70-6.10); White Blood Count 13.72 K/ul (4.8-10.8)
[2025-07-01 07:16] LABS: Anion Gap 5.0 (3-11); Blood Urea Nitrogen 15.0 mg/dl (6-23); Calcium 8.4 mg/dl (8.6-10.3); Carbon Dioxide 28.0 mmol/L (21-32); Chloride 100.0 mmol/L (98-107); Creatinine Clr Calc Pharmacy 95.5 ml/min; Glucose 117.0 mg/dl (70-99(Fasting)); Potassium 4.1 mmol/L (3.5-5.1); Sodium 133.0 mmol/L (136-145)
--- NOTE | 2025-07-01 08:25 | Discharge Summary ---
Date of Service July 01, 2025 Admission HPI Per Admitting Provider Sam Larson is a 64yo male with multiple medical comorbidities presenting with acute rash and allergic reaction. Patient has chronic cough - reports that over the last 2-3 days his cough has gotten worse and has become productive for coe-brown colored sputum. Patient was febrile all day today. This afternoon he took a Tussin pill (same medication he has been taking for many years). Shortly after patient developed acute, severe generalized weakness with inability to walk or hold himself up. His then noted an erythematous rash on his neck and face and under his arms and back bilaterally. Patient then went to sleep. He then had worsening facial swelling, SOB and increased fever so patient's called 911. Per EMS patient with significant rash. He was hypotensive with BP in the 80's, hypoxic with saturation of 83%. EMS administered 250mL NSS, 0.3 IM epinephrine, 50mg Benadryl 125mg Solumedrol. Upon arrival to the ER patient noted to have diffuse, well demarcated, erythematous rash with swelling of lips and ears bilaterally. Rash is painless. Some itching. Patient with episode of low blood pressure in the ER so was given a second dose of epinephrine IV. Patient denies throat swelling, hoarsness or SOB at present. No abdominal discomfort, nausea, vomiting, diarrhea. No oral lesions. Patient was started on Plavix in March for a TIA. Otherwise no new medications. No recent vaccinations. No new shampoos, detergents, personal hygiene products, etc No insect bites No new foods Does have history of angioedema with Lisinopril. No other allergic/anaphylactic reactions reported ER Course: Pepcid 20mg IV Albuterol 3mL neb NSS x 250mL Epinephrine 1mg Unasyn 3gm Dextrose 250mL Insulin 5u IV NSS x 1L Calcium chloride 1gm IV Admission Exam Per Admitting Provider General: patient ill in appearance but NAD, answering questions appropriately and following commands Skin: well demarcated, erythematous confluent urticarial rash distributed on face and neck, bilateral axilla and extensor surfaces of upper arms, groin, flexor surfaces of knees and legs. Some isolated lesions on right knee and bilateral arms, no mucosal involvement, no involvement of palms or soles, no blistering or desquamation noted HEENT: NC/AT, absence of eyes bilaterally, ears red, swollen bilaterally, nares patent, moist mucus membranes, dentition intact, no oropharyngeal lesions, no edema of tongue, throat, soft palate or uvula, neck supple, trachea midline, no LAD, no thyromegaly, no JVD, no stridor Heart: +S1/S2, regular, no m/r/g Lungs: equal air entry bilaterally, coarse breath sounds with crackles in bilateral bases to mid-lung field, no wheezing, no stridor, voice without hoarseness Abd: +BS, soft, NT/ND, no masses/organomegaly/ascites Ext: warm, 2+ pulses in UE/LE bilaterally, no clubbing/cyanosis or edema Neuro: nonfocal, patient AA&O x 4, speech intact, no facial droop, moving all extremities on command with equal strength 5/5 Principal Diagnosis Bacteremia/pneumonia Discharge Exam General: patient resting comfortably, NAD, non-toxic in appearance, answers questions appropriately. Skin: warm, dry, intact HEENT: NC/AT, anicteric sclera, conjunctiva without injection, moist mucus membranes. Heart: +S1/S2, regular, no m/r/g Lungs: equal air entry bilaterally, no rales/rhonchi/wheezes Abd: +BS, soft, NT/ND Ext: warm, no clubbing/cyanosis or edema Neuro: nonfocal, speech intact, no facial droop, moving all extremities. Discharge Data Allergies Allergy/AdvReac Type Severity Reaction Status Date / Time lisinopril Allergy Severe " TONGUE Verified 05/20/25 11:16 SWELLS"--ANGIOEDEMA dextromethorphan AdvReac Severe Anaphylaxis Verified 06/24/25 11:59 [From Robitussin CoughGel] guaifenesin [From Robitussin] AdvReac Severe Anaphylaxis Verified 06/24/25 11:59 phenylephrine AdvReac Severe Anaphylaxis Verified 06/24/25 11:59 [From Robitussin Cough and Cold CF] lorazepam AdvReac Intermediate Hallucinati Verified 05/20/25 11:16 ons Consultations 06/23/25 04:27 ED Decision to Admit Stat 06/23/25 07:12 Consult Outside Plant Field Engineer Routine 06/24/25 14:14 Consult Infectious Diseases Routine 06/25/25 11:36 Consult Anesthesiology Routine Procedures Performed Operation Date: 06/26/25 07:45 <No data on this case meets the specified criteria> Ordered Studies 06/26/25 10:51 CT for pulmonary embolism PE [CT angio chest PE protocol] Stat Hospital Course (1) MSSA bacteremia: (2) Recurrent pneumonia: (3) CAD (coronary atherosclerotic disease): (4) Hypoxemia: (5) Bilateral pneumonia: (6) Anaphylaxis: (7) Diabetes mellitus type 1, uncontrolled: Plan Plan 64yo male with multiple medical comorbidities presenting with severe allergic reaction - rash with anaphylaxis. Etiology unclear. Possible rash secondary to Plavix, possible infectious. #Rash/Anaphylaxis - diffuse, symmetrical, erythematous, pruritic, urticarial rash - sparing of palms/soles/mucus membranes. Inciting event unknown. Patient remains hemodynamically stable following administration of epinephrine IM and IV. No airway involvement. No desquamation or blistering -Initially admitted to MICU for this -unsure which medication precipitated it as patient has tried these meds in the past -Improved rash, no longer requires ICU -Treatment with Solumedrol 40mg IV BID/ transitioned to prednisone Now on 20 mg of prednisone, can taper further at discharge -Pepcid 20mg IV BID and 40mg po qHS -Benadryl 50mg IV q 6 hours -Continue Fexofenadine -Continue Montelukast -resume bp meds -resolved #Pneumonia Acute hypoxic respiratory failure Now improved, back on nasal cannula. will continue current antibiotics and pulmonary toilet - CXR suggestive of bilateral lower lobe PNA. . Respiratory biofire panel is negative, MRSA nares negative . -Follow blood cultures: showing staph aureus. -now on cefazolin, will complete 14 days, last dose will be 07/07 per ID -completed Azithromycin - will consult ID due to bacteremia. CTA negative for p/e. Oxygen level has been slowly improving. No longer requires FANNY as repear blood culture has been negative. Due to difficulty swallowing/ recurrent aspirations due to dysphagia, patient will need for home suction. 2 step completed today showing desaturations on exertion, patient also requiring 2L O2 at rest with desat to 88% on 1L - O2 script given at d/c, continue suctioning, complete abx by 07/07 with CBC to be completed either 07/07-07/08. Peripheral IV should be removed 07/07. Please discuss getting new blood cultures at PCP visit 1 week from 07/07, if elevated WBC, fevers, hemodynamically unstable repeat blood cultures #NITIN/Hyperkalemia- patient with NITIN on CKD. resolved. -Avoid nephrotoxic medications -Renal dosing where needed #Hyponatremia - chronic. Patient is on salt tablets daily. Na was 124, now 133. -Continue hydration -Continue salt tablets #DM -Glycemic management per MICU #COPD -Continue Trelegy or formulary equivalent -Xopenex PRN -Supplemental O2 as needed LUZMA-BiPAP at night #BPH -Continue Flomax #CAD/possible TIA -Continue ASA -Holding Plavix, possibly contributing to rash -Continue Atorvastatin Total Time Total Time Spent Total Time Spent (In Minutes): <30 Discharge Plan Discharge Items Patient Disposition: Home - Home Health Services Reason For Visit: RASH, ALLERGIC REACTION Discharge Diagnosis: Bacteremia, pneumonia Condition on Discharge: Critical Activity: Per Instructions section Non-emergency contact: Primary Care Provider Call non-emergency contact if: your symptoms worsen and your pain is not controlled Follow-up/Referrals: Josh Squires III, CRNP [Primary Care Provider] - Diet: Carb Count or DM1 Ambulatory Orders: Complete Blood Count with Diff (Timed) Timeframe: 1 Week Location: Determined by Patient Ordered By: Gavin Pérez Attending Provider Instructions: You were admitted to the hospital for difficulty breathing, complicated by a rash, pneumonia, and positive blood cultures. You were treated with IV fluids, steroids, antihistamine therapy, oxygen, and antibiotics and your status improved through your stay. It is important that you continue your antibiotic regimen while at home, and your has had training while here at the hospital to help administer your midnight dose of medication tonight. Additionally, there was a slight rise in your WBC count on your last day here prior to discharge, it will be useful to complete a CBC on 07/07-07/08 to make sure that your infection is resolving. It will also be useful to see your PCP in approximately a week after this CBC for medication management, and additional labs if necessary in about a week. Your PCP will also be able to prescribe additional antibiotics if there is indeed still an infection occurring when they review your vitals and your CBC that will be completed as described above. You have also received a script for oxygen at home, that will help you breathe properly while recovering from your pneumonia. You may also use the suctioning device that you were provided with to clear secretions, as you did report that your oxygen saturation improved significantly after respiratory therapy worked with you and helped suction you. In 1-2 weeks from today plan to see your PCP, report to them that you had a blood stream infection that was recently treated with IV antibiotics for a 14 day course and you finished this course on 07/07. Then you will have a CBC completed and can discuss the results of this with your PCP. If your white blood cell count is elevated, or you develop persistent fevers, or are feeling sick again similar to when you came into the hospital please request blood cultures, as if there is still an infection or a vegetation in your heart worrisome for chronic infection you will have positive blood cultures and will need another course of IV antibiotics. It is less likely that this will be the case based on the first echo that you completed that was negative for vegetations and the quick resolution of infection in subsequent blood cultures, but this is still a possibility given the "sticky" nature of MSSA (methicillin sensitive staph aureus) and inability to complete you FANNY echo due to sudden hypoxia. Thus steps to complete: Finish antibiotic course through 07/07 Continue oxygen and suctioning CBC to be completed 07/07 or 07/08 Remove your U/S guided peripheral IV with home nursing 07/08 See PCP about one week from 07/07 to discuss need for blood cultures, and this should be done if Sam feels very sick, or white blood cell count is very elevated A discharge summary will be sent to your primary care physician to ensure continuity of care. Please bring this discharge summary with you to your next office appointment so that your provider can review it at that time. Follow-up appointments: Make a follow-up appointment with your PCP within the week after 07/07. It is very important that you follow up with them shortly after discharge from the hospital. Medications: Your medication list has been reviewed and reconciled upon discharge to ensure accuracy and continuity of care. An updated list of all your medications is included with your hospital discharge paperwork. Please review this list closel y, and make note of any changes. Take your medications as instructed; do not skip a dose of your medicines. Make sure all of your doctors know every medicine you are taking (including gofz-itb-dssmmgd medicines, vitamins, and supplements). Call your primary care provider before taking any new medicines (including wyeu-zhp-ettvlqb medicines, vitamins, and supplements), because some of these may interact with your current medications, or may make your symptoms worse. Tell your primary care provider if you cannot afford your medications. CONTACT YOUR PRIMARY CARE PROVIDER if you experience any of the following: Difficulty following your treatment plan, or difficulty taking medications CALL 911 OR GO TO THE EMERGENCY DEPARTMENT if you experience any of the following: Sudden, severe abdominal pain or nausea/vomiting Severe chest pain, or chest pain that radiates (moves) to your jaw or arm Sudden, severe shortness of breath or difficulty breathing Thank you for allowing us to participate in your care. Pending Studies at Discharge: No Stand-Alone Forms: My [facility] [employer], Smoking Cessation Medications and DC Order Prescriptions: Continued levothyroxine 175 mcg tablet 175 mcg PO QAM Qty: 90 3RF atorvastatin 80 mg tablet 80 mg PO HS Qty: 90 3RF Hold Instructions: Resume on 05/16/25. hold atorvastatin medication until ciprofloxacin antibiotic course is completed metoclopramide HCl [Reglan] 10 mg tablet 10 mg PO QID Qty: 120 5RF bumetanide 1 mg tablet 1 mg PO BID Qty: 180 3RF albuterol sulfate 90 mcg/actuation HFA aerosol inhaler 2 puff inhalation Q4H PRN (Reason: Shortness Of Breath) Qty: 8.5 3RF ondansetron HCl 8 mg tablet 8 mg PO TID PRN (Reason: nausea and vomiting) Qty: 30 1RF hydrocodone-homatropine 5-1.5 mg tablet 1 tab PO BID PRN (Reason: cough) Qty: 60 0RF amlodipine 2.5 mg tablet 2.5 mg PO QAM Qty: 90 3RF levalbuterol HCl 0.63 mg/3 mL solution for nebulization 0.63 mg inhalation Q6H PRN (Reason: shortness of breath or wheezing) Qty: 360 5RF losartan 100 mg tablet 100 mg PO QAM Qty: 90 3RF isosorbide mononitrate 30 mg tablet extended release 24 hr 30 mg PO QAM Qty: 90 3RF Rx Instructions: take 1 tablet by mouth every morning nortriptyline 25 mg capsule 50 mg PO HS Qty: 180 3RF Rx Instructions: take 2 capsules by mouth at bedtime atenolol [Tenormin] 50 mg tablet 50 mg PO BID Qty: 180 3RF tamsulosin [Flomax] 0.4 mg capsule 0.4 mg PO QPM Qty: 90 3RF clopidogrel 75 mg tablet 75 mg PO DAILY Qty: 30 0RF folic acid 1 mg tablet 1 mg PO BID Qty: 180 3RF oxycodone-acetaminophen [Percocet] 5-325 mg tablet 1 - 2 tab PO DAILY PRN (Reason: Pain) 30 Days Qty: 60 0RF Rx Instructions: Take 1 tablet for moderate pain and two tablets for severe pain dutasteride 0.5 mg capsule 0.5 mg PO DAILY Qty: 90 3RF montelukast 10 mg tablet 10 mg PO HS Qty: 90 3RF pantoprazole [Protonix] 40 mg tablet,delayed release (DR/EC) 40 mg PO BID Qty: 180 3RF (DME) BiPap Machine Misc .Route Qty: 1 0RF Rx Instructions: BiPAP 15/8, heated humidification, compliance download capabilities. Current machine greater than 5 years old and unable to provide compliance data: DME 422 Group aspirin 81 mg tablet,delayed release (DR/EC) 81 mg PO QAM ferrous sulfate 325 mg (65 mg iron) tablet 325 mg PO BID Excedrin Migraine 250-250-65 mg tablet 1 tab PO Q6H PRN (Reason: Migraine Headache) Trelegy Ellipta 100-62.5-25 mcg blister with device 1 inh INHALATION QAM 90 Days Qty: 90 3RF glucosamine sulfate [Glucosamine] 500 mg Tablet 500 mg PO QDL Probiotic 3 billion cell Capsule 3,000 mmu cells PO QAM fexofenadine [Manuela Allergy] 180 mg Tablet 180 mg PO QAM famotidine 20 mg Tablet 20 mg PO BID Rx Instructions: TAKES WITH BREAKFAST AND LUNCH insulin aspart U-100 [Novolog FlexPen U-100 Insulin] 100 unit/mL (3 mL) insulin pen 0 sliding scale dose SUBCUT UD Rx Instructions: 1-4 CARBS IS 1 UNIT subcut daily; SLIDING SCALE; FOR EVERY 20 CARBS, ADD ANOTHER 1 UNIT OF INSULIN 2 EXTRA 2 UNITS FOR 150-170 CARBS AND IF OVER 150, ADD 2 UNITS FOR EVERY 20 POINTS OVER FOR HIS BLOOD SUGAR promethazine 25 mg tablet 25 mg PO Q6H PRN (Reason: n/v) Rx Instructions: take 1 tablet by mouth every 6 hours if needed for nausea and vomiting famotidine 40 mg tablet 40 mg PO HS Rx Instructions: TAKE 1 TABLET BY MOUTH EVERYDAY AT BEDTIME sennosides [senna] 8.6 mg Tablet 8.6 mg PO BID acetaminophen [Tylenol] 325 mg Tablet 325 mg PO Q6H PRN (Reason: PAIN/FEVER) sodium chloride 1,000 mg Tablet,Soluble 1,000 - 2,000 mg PO QID Rx Instructions: 2000mg in am/1000mg at lunch/1000mg at dinner/2000mg at hs magnesium oxide 400 mg magnesium Tablet 400 mg PO DAILY sucralfate 1 gram tablet 1 g PO ACHS Rx Instructions: TAKE 1 TABLET BY MOUTH BEFORE MEALS AND AT BEDTIME insulin degludec [Tresiba FlexTouch U-100] 100 unit/mL (3 mL) insulin pen 30 unit subcut BID Qty: 0 0RF Discharge Orders: Discharge Order (Routine); Ordered 07/01/25 Ordered By: Gavin Galdamez/Other Patient Handouts: Preventing Deep Vein Thrombosis Admission Data Admit Date/Time: 06/23/25 05:28 Attending Provider: Adonay Ventura Admit Provider: Cammy Payne Primary Care Provider: Josh Squires III Other Providers: Counts Include [facility]; Cammy Payne; Rell Orosco; Jessica An; Celi Sanz; Akosua Hunter Antonie J.; Carol Barry; Nini Tom; Ora Tucker; Rosmery Wang; Divine Birmingham; Patricia Rich; Eleazar Manriquez; Abdias Lopez; Clint Patel; Sudhakar Perez; Aleksandra Tam; Charles Carlisle; Bryant Taylor; Inder Peoples; Melinda Ceron; Haroon Dia; Michelle Dia; Umang Perrin; Cinthya Rogers; Noah Ugalde; Chiqui Luke; Jackie Pittman; Alfonso Quezada; Cammy Thomas; Soo Carmen; Yessi Barnard; Blossom Hogan; Og Hogan V; Cliff Carreno; Rosmery Dumont; Evaristo Edwards; Debbie Baker; Og Sanchez; Juan Ceron; Dharmesh De La Torre; Venecia Cuevas; Micheline Iniguez; Og Kendall; Sherwin Molina; Bozena Washington; Dar Rodgers; Ame Mendoza; Yolanda Travis; Matt Rivas; Dallin Paredes; Rosa Alarcon; Clint Samuel; Elsa Reis; Diallo Teixeira; Sven Ovalle; Eleazar Bean Jr; Linnea Abreu; Shelby Kamara; Ivett Awad; Alfonso Aburto; Jack Bang; Shelby Booth; Yann Boston; Luis Miguel Andrews; Pareven Metzger; Wyatt Bear; Estela Lin; Kamran Alfred; Kelly Chapa; Deandra Duarte; Sarah Montes De Oca; Karolina Winn; Baudilio Bee Jr; Valerie Barker; Cammy Encinas; Moshe Pereira; Elizabeth Camejo; Nikki Glaser; Tamar Melendrez; Tatum Ceron Other Interventions: Discharge Summary Assessment (RN) Last Done: 07/01/25 17:35 Supervising Physician Co-Signing Physician Notes I personally examined the patient and verified all rajan points of history and exam, discussed case, and agree with decision making with Dr Barnes feeling better. Feels up to going home. Extensive discussion with patient and . Answered all questions to the best my ability. Extensive discussions with resident physician. Efforts greatly appreciated. Vitals noted, in general he is awake and alert pleasant no distress. HEENT normocephalic atraumatic mucous membranes moist. Breathing unlabored no accessory muscle use good effort. Skin without rashes pallor or icterus. Neuro without focal deficits. Bacteremia2 weeks of cefazolin as recommended by infectious disease. Given lingering concerns for outside possibility of endocarditisafter antibiotics are completed repeat cultures about a week later pneumoniaimproving. Finish antibiotics as above. Supplemental oxygen until no longer needed . Anaphylactoid reactionimprovedno need for ongoing steroids. Otherwise as above. Resident Activity Tracking Resident Involvement: Resident Care Provided Care Provided: Adult [facility]
[2025-07-01 14:07] VITALS: O2SAT 93
[2025-07-01 15:30] VITALS: BP 168/69; PULSE 71; RESP 18; TEMP 97.9
--- NOTE | 2025-07-01 19:14 | Billing Data ---
Date of Service July 01, 2025 Coding Level of Care Code 56763 IN/OBS DISCH 30 MIN/LESS
--- NOTE | 2025-07-02 14:11 | Coding Query ---
CODING QUERY FOR UNCONTROLLED DIABETES To promote full compliance with coding requirements relating to patient care, provider participation is requested in all cases of inspector agricultural commodities uncertainty. Please assist us with the question(s) below: Coding Question: The term uncontrolled Diabetes was used throughout the record. To be able to code this diagnosis properly, could you please clarify the diagnosis below: ( ) Uncontrolled Diabetes meaning hypoglycemia ( x ) Uncontrolled Diabetes meaning hyperglycemia ( ) Other (please specify) Principal Diagnosis: "that condition established after study, to be chiefly responsible for occasioning the admission of the patient to the hospital for care." Co-Existing Principal Diagnosis: "when two or more diagnoses equally meet the criteria for principal diagnosis as determined by the circumstances of admission, diagnostic work up, and/or therapy provided, and the Alphabetic Index, Tabular List, or another coding guideline does not provide sequencing direction, any one of the diagnoses may be sequenced first." "When the physician has documented what appears to be a current diagnosis in the body of the record, but has not included the diagnosis in the final diagnostic statement, the physician should be asked whether the diagnosis should be added." (Source [facility]oding [facility] 2 QTR90. p3-4) LEELA
--- NOTE | 2025-07-02 14:13 | Coding Query ---
CODING QUERY To promote full compliance with coding requirements relating to patient care, provider participation is requested in all cases of extrusion operator uncertainty. Please assist us with the question(s) below: Coding Question(s): Please clarify what patients rash was due to. Physician's Response(s): ( ) Due to Plavix ( ) Due to Antitussive ( x ) Due to other unknown Thank you Shell Mayorga Principal Diagnosis: "that condition established after study, to be chiefly responsible for occasioning the admission of the patient to the hospital for care." Co-Existing Principal Diagnosis: "when two or more diagnoses equally meet the criteria for principal diagnosis as determined by the circumstances of admission, diagnostic work up, and/or therapy provided, and the Alphabetic Index, Tabular List, or another coding guideline does not provide sequencing direction, any one of the diagnoses may be sequenced first." "When the physician has documented what appears to be a current diagnosis in the body of the record, but has not included the diagnosis in the final diagnostic statement, the physician should be asked whether the diagnosis should be added." (Source Coding Clinic 2 QTR90. p3-4) LEELA
== END 2025-07-01 18:06 | disposition home health service (06) | DRG 915 ==
LOC: SUATTDRO → ED 02:56 → 1E 05:28 → SUATTDRO 05:28 → 1E 06:27 → 2E 06-24 12:45 → 3W 06-25 21:28 → 2S 06-26 15:05